=== PATIENT | female | born 1955 | race Caucasian/White ===

== ENCOUNTER 2020-09-03 07:18 | Outpatient (REF) | payer MEDICARE, SELFPAY ==
[2020-09-03 11:13] LABS: MANUAL DIFF FLAG NO
[2020-09-03 11:25] LABS: Basophils Absolute Auto 0.1 X10*3/uL (0.0-0.2); Basophils Percent Auto 0.8 % (0-2); Eosinophils Absolute Auto 0.2 X10*3/uL (0.0-0.4); Eosinophils Percent Auto 2.1 % (0-4); Hematocrit 40.2 % (37-47); Hemoglobin 12.6 g/dl (12.0-16.0); Imm Gran Abs Auto 0.03 X10*3/uL (0.00-0.03); Imm Gran Pct Auto 0.4 % (0.0-0.4); Lymphocytes Absolute Auto 1.9 X10*3/uL (1.2-4.9); Mean Corpuscular HGB Conc 31.3 g/dl (31.0-35.0); Mean Corpuscular Hemoglobin 27.5 pg (27.0-33.0); Mean Corpuscular Volume 87.6 fL (80-98); Mean Platelet Volume 10.2 fL (9.4-12.3); Monocytes Absolute Auto 0.5 X10*3/uL (0.1-1.2); Monocytes Percent Auto 5.7 % (2-11); Neutrophils Absolute Auto 5.8 X10*3/uL (2.0-8.3); Platelet Count 275 X10*3/uL (160-400); Red Blood Count 4.59 X10*6/uL (4.20-5.50); Red Cell Distribution Width 13.9 % (11.0-16.0); White Blood Count 8.4 X10*3/uL (4.8-10.8)
[2020-09-03 11:44] LABS: Alanine Aminotransferase 16 U/L (0-31); Alkaline Phosphatase 70 U/L (39-117); Anion Gap 14 (12-20); Aspartate Amino Transferase 15 U/L (5-31); Bilirubin Total 0.3 mg/dL (0.0-1.0); Blood Urea Nitrogen 30 mg/dL (9-16); Calcium 8.7 mg/dL (8.4-10.2); Carbon Dioxide 25 mmol/L (22-29); Chloride 104 mmol/L (96-108); Cholesterol 194 mg/dL; Estimated Glomerular Filt Rate > 60; Glucose Fasting 92 mg/dL (60-99); HDL Cholesterol 64 mg/dL; LDL Cholesterol Calculated 114 mg/dl; Potassium 4.4 mmol/l (3.3-5.1); Sodium 139 mmol/L (135-145); Total Protein 6.5 g/dL (6.5-8.0); Triglycerides 81 mg/dL
[2020-09-03 12:12] LABS: Thyroid Stimulating Hormone 2.83 uIU/mL (0.32-4.0)
== END 2020-09-03 07:19 | disposition home or self-care (01) ==
LOC: HO.HMGCLDS 07:18
PROVIDERS: PCP Internal Medicine; Visit Provider Internal Medicine
DX: E78.5 Hyperlipidemia, unspecified (principal); J45.909 Unspecified asthma, uncomplicated
CPT/HCPCS: 36415; 80053; 80061; 84443; 85025

== ENCOUNTER 2020-09-11 09:59 | Outpatient (REF) | payer MEDICARE, SELFPAY ==
--- NOTE | 2020-09-11 10:02 | US_ITS ---
EXAMINATION: US SOFT TISSUE OF THE NECK CLINICAL INFORMATION: Generalized enlarged lymph nodes. Status post right thyroidectomy. COMPARISON: Ultrasound soft tissue head/neck thyroid dated 12/13/2018. TECHNIQUE: Linear transducer grayscale and color Doppler examination of the solitary left thyroid and surrounding soft tissue. FINDINGS: LEFT NECK: 1. Level 5B lymph node measuring 2.0 x 0.70 x 1.8 cm. Abnormal appearance with peripheral color flow. 2. Level 5B lymph node measuring 1.4 x 0.57 x 1.5 cm. Normal appearance with peripheral flow 3. Level 2A lymph node measuring 1.3 x 0.61 x 0.82 cm. Oval-shaped with central echogenic medulla and no abnormal vascularity. 4. Level 2A lymph node measures 1.5 x 0.45 x 0.91 cm and has normal ultrasound features. 5. Level 7 lymph node measures 1.1 x 0.23 x 0.42 cm. It has normal ultrasound features. RIGHT NECK: 1. Level 2A lymph node measures 1.2 x 0.54 x 1.2 cm. It has normal ultrasound features. 2. Level 3 lymph node measures 1.1 x 0.47 x 0.82 cm. It has normal ultrasound features. 3. Level 3 lymph node measures 0.91 x 0.30 x 0.74 cm. It has normal ultrasound features. 4. Level 1A lymph node measures 0.90 x 0.62 x 0.74 cm. It has normal ultrasound features. US/US soft tiss head and/or neck IMPRESSION: 1. Two abnormal size lymph nodes seen in the right neck. 2. The rest of the right and left neck lymph nodes have normal lymph node features by ultrasound.
== END 2020-09-11 10:00 | disposition home or self-care (01) ==
LOC: HO.HMGCX 09:59
PROVIDERS: PCP Internal Medicine; Visit Provider Internal Medicine
DX: R59.1 Generalized enlarged lymph nodes (principal)
CPT/HCPCS: 76536

== ENCOUNTER 2020-11-17 07:33 | Outpatient (REF) | payer MEDICARE, SELFPAY ==
[2020-11-17 08:50] LABS: Albumin Level 4.2 g/dL (3.5-5.0); Calcium 9.4 mg/dL (8.4-10.2)
[2020-11-17 08:56] LABS: Alanine Aminotransferase 23 U/L (0-31); Albumin Level 4.2 g/dL (3.5-5.0); Alkaline Phosphatase 95 U/L (39-117); Anion Gap 14 (12-20); Aspartate Amino Transferase 16 U/L (5-31); Bilirubin Total 0.5 mg/dL (0.0-1.0); Blood Urea Nitrogen 19 mg/dL (9-16); Calcium 9.9 mg/dL (8.4-10.2); Carbon Dioxide 32 mmol/L (22-29); Chloride 101 mmol/L (96-108); Estimated Glomerular Filt Rate > 60; Glucose Random 84 mg/dL (60-115); Potassium 4.6 mmol/L (3.3-5.1); Sodium 142 mmol/L (135-145)
[2020-11-17 09:22] LABS: Vitamin D 25-OH Total 48.4 ng/mL (>30)
[2020-11-19 16:12] LABS: PTHI 52 pg/mL (14-64)
[2020-11-23 18:46] LABS: N-Telopeptide 22 (see note); NTXCreaRU 186 mg/dL (20-275)
== END 2020-11-17 07:34 | disposition home or self-care (01) ==
LOC: HO.LAB 07:33
PROVIDERS: PCP Internal Medicine; Visit Provider Internal Medicine
DX: M81.0 Age-related osteoporosis without current pathological fracture (principal); E55.9 Vitamin D deficiency, unspecified; E04.2 Nontoxic multinodular goiter
CPT/HCPCS: 36415; 80053; 82040; 82306; 82310; 82523; 83970

== ENCOUNTER → 2020-11-21 08:50 | Outpatient (BNVA) | payer MEDICARE, SELFPAY | PROVIDERS: PCP Internal Medicine; Visit Provider Internal Medicine | DX: M81.0 Age-related osteoporosis without current pathological fracture (principal); E04.2 Nontoxic multinodular goiter; E55.9 Vitamin D deficiency, unspecified; Z79.899 Other long term (current) drug therapy | CPT/HCPCS: 96402; 99212 ==

== ENCOUNTER 2020-12-11 08:39 | Outpatient (REF) | payer MEDICARE, SELFPAY ==
--- NOTE | ~2020-12-11 | US_ITS ---
EXAMINATION: ULTRASOUND BIOPSY LEFT LYMPH NODE CLINICAL INFORMATION: Left-sided cervical adenopathy. COMPARISON: Ultrasound soft tissue neck 09/12/2020 TECHNIQUE: Following explaining ultrasound-guided left neck lymph node biopsy procedure, benefits and risks, written consent was obtained. Preliminary ultrasound imaging was obtained through the left neck and optimal site was selected and marked on the skin. The marked site was infiltrated with 1% lidocaine. Under sterile ultrasound guidance a 2 pass fine-needle biopsy with a 25-gauge needle was performed. Subsequently a core biopsy x3 was performed with a 20-gauge biopsy gun. Postprocedure needle was withdrawn and complete hemostasis achieved. Sterile bandage applied at the puncture site. Patient tolerated procedure extremely well. On preliminary pathology findings there is adipose tissue visualized. Further cytologic testing is pending. FINDINGS: There is a well-defined left neck superficial soft tissue mass measuring approximately 2.1 cm in length. Ultrasound-guided fine-needle and core biopsy of this left neck mass was performed. US/US biopsy lymph node IMPRESSION: Successful ultrasound-guided left supraclavicular neck fine-needle and core biopsy performed without immediate complications.
== END 2020-12-11 08:40 | disposition home or self-care (01) ==
LOC: HO.US 08:39
PROVIDERS: Visit Provider Internal Medicine
DX: R59.1 Generalized enlarged lymph nodes (principal)
CPT/HCPCS: 38505; 76942; 88172; 88173; 88177; 88304; 88305

== ENCOUNTER 2021-01-03 09:13 | Outpatient (REF) | payer MEDICARE, SELFPAY ==
[2021-01-03 12:03] LABS: Albumin Level 4.1 g/dL (3.5-5.0); Calcium 9.6 mg/dL (8.4-10.2)
[2021-01-03 12:11] LABS: Blood Urea Nitrogen 23 mg/dL (9-16); Estimated Glomerular Filt Rate > 60
[2021-01-04 16:12] LABS: Calcium (PTHI) 9.3 mg/dL (8.6-10.4); PTHI 65 pg/mL (14-64)
== END 2021-01-03 09:14 | disposition home or self-care (01) ==
LOC: HO.HMGCLDS 09:13
PROVIDERS: Internal Medicine; PCP Internal Medicine; Visit Provider Internal Medicine
DX: I49.9 Cardiac arrhythmia, unspecified (principal); R59.1 Generalized enlarged lymph nodes; M81.0 Age-related osteoporosis without current pathological fracture
CPT/HCPCS: 36415; 82040; 82310; 82565; 83970; 84520

== ENCOUNTER 2021-01-10 07:47 | Outpatient (REF) | payer MEDICARE, SELFPAY ==
--- NOTE | ~2021-01-10 | CT_ITS ---
EXAMINATION: CT SOFT TISSUE NECK WITHOUT AND WITH CONTRAST CLINICAL INFORMATION: Generalized enlargement of the lymph nodes. COMPARISON: Soft tissue neck ultrasound 09/11/2020. TECHNIQUE: Before and after the intravenous administration of 60 mL of Omnipaque 350 intravenous contrast helical imaging was performed in the axial plane with generation of coronal and sagittal reformatted images. This CT examination was performed using dose optimization techniques as appropriate, variously including the following: *Automated exposure control *Adjustment of mA and/or kV according to patient size (this includes techniques or standardized protocols for targeted exams where dose is matched to indication/reason for exam; i.e. extremities or head) *Use of iterative reconstruction technique DLP: 288 mGy-cm FINDINGS: The right lobe the thyroid gland is surgically absent. No abnormal soft tissue mass or enhancement at the site of surgery. There are no pathologically enlarged cervical lymph nodes. No mediastinal or axillary adenopathy is visualized within the [id number] of this examination. Spaces are symmetric. Parapharyngeal and retromaxillary fat is preserved. Injection Molding Machine Offbearer spaces are symmetric. The parotid and submandibular glands are normal. The tongue base and epiglottis are normal. Preepiglottic fat is preserved. Glottic and subglottic airways are widely patent. Lung apices are clear. Scattered atheromatous calcification involves the aortic arch apex. Cervical carotid and vertebral arteries are patent. Internal jugular veins fill symmetrically. There is no acute osseous finding. There is degenerative arthrosis at C5-C6 and slight anterolisthesis of C4 on C5 related to facet degenerative changes at this level. Grossly no evidence of canal compromise. Limited visualization of the posterior fossa reveals no abnormal finding. The skull base is intact. No mastoid middle ear effusion. A. Retention cysts are visualized within the maxillary sinuses. CT/CT soft tissue neck wo/w con IMPRESSION: Chronic postoperative changes of a right thyroid lobectomy. No abnormal soft tissue mass or enhancement of the sinus surgery or elsewhere within the [id number] of this examination. No pathologically enlarged cervical lymph nodes.
[2021-01-10] MEDS: iohexoL 350 MG/ML 100 ML INFUS..BTL IV (08:44)
== END 2021-01-10 07:48 | disposition home or self-care (01) ==
LOC: HO.CT 07:47
PROVIDERS: PCP Internal Medicine; Visit Provider Internal Medicine
DX: R59.1 Generalized enlarged lymph nodes (principal)
CPT/HCPCS: 70492; Q9967

== ENCOUNTER 2021-05-17 07:55 | Outpatient (REF) | payer MEDICARE, SELFPAY ==
[2021-05-17 11:27] LABS: Hematocrit 42.1 % (37-47); Hemoglobin 13.3 g/dl (12.0-16.0); Mean Corpuscular HGB Conc 31.6 g/dl (31.0-35.0); Mean Corpuscular Hemoglobin 27.2 pg (27.0-33.0); Mean Corpuscular Volume 86.1 fL (80-98); Platelet Count 324 X10*3/uL (160-400); Red Blood Count 4.89 X10*6/uL (4.20-5.50); Red Cell Distribution Width 14.3 % (11.0-16.0); White Blood Count 9.3 X10*3/uL (4.8-10.8)
[2021-05-17 11:47] LABS: Alanine Aminotransferase 23 U/L (0-31); Albumin Level 4.2 g/dL (3.5-5.0); Alkaline Phosphatase 89 U/L (39-117); Anion Gap 14 (12-20); Aspartate Amino Transferase 18 U/L (5-31); Bilirubin Total 0.6 mg/dL (0.0-1.0); Blood Urea Nitrogen 24 mg/dL (9-16); Calcium 9.3 mg/dL (8.4-10.2); Carbon Dioxide 27 mmol/L (22-29); Chloride 103 mmol/L (96-108); Cholesterol 256 mg/dL; Estimated Glomerular Filt Rate > 60; Glucose Fasting 92 mg/dL (60-99); HDL Cholesterol 79 mg/dL; LDL Cholesterol Calculated 161 mg/dl; Phosphorus 4.2 mg/dL (2.7-4.5); Potassium 4.3 mmol/L (3.3-5.1); Sodium 140 mmol/L (135-145); Total Protein 6.8 g/dL (6.5-8.0); Triglycerides 83 mg/dL
[2021-05-17 11:55] LABS: TSH reflex Free T4 3.41 uIU/mL (0.32-4.0)
[2021-05-17 12:02] LABS: Free T4 (Free Thyroxine) 0.97 ng/dL (0.71-1.85); Thyroid Stimulating Hormone 3.74 uIU/mL (0.32-4.0); Vitamin D 25-OH Total 41.3 ng/mL (>30)
[2021-05-21 22:56] LABS: N-Telopeptide 37 (see note); NTXCreaRU 83 mg/dL (20-275)
[2021-05-26 06:31] LABS: Calcium (PTHI) 9.5 mg/dL (8.6-10.4); PTHI 65 pg/mL (14-64)
== END 2021-05-17 07:56 | disposition home or self-care (01) ==
LOC: HO.HMGCLDS 07:55
PROVIDERS: PCP Internal Medicine; Visit Provider Internal Medicine
DX: E55.9 Vitamin D deficiency, unspecified (principal); M81.0 Age-related osteoporosis without current pathological fracture; E78.5 Hyperlipidemia, unspecified; I49.9 Cardiac arrhythmia, unspecified
CPT/HCPCS: 36415; 80053; 80061; 82306; 82523; 83970; 84100; 84439; 84443; 85027

== ENCOUNTER → 2021-05-22 08:54 | Outpatient (BNVA) | payer MEDICARE, SELFPAY | PROVIDERS: PCP Internal Medicine; Visit Provider Internal Medicine | DX: M81.0 Age-related osteoporosis without current pathological fracture (principal); E55.9 Vitamin D deficiency, unspecified; E04.2 Nontoxic multinodular goiter | CPT/HCPCS: 20552; 96372; 99212 ==

== ENCOUNTER 2021-06-06 08:25 | Outpatient (REF) | payer MEDICARE, SELFPAY ==
[2021-06-06 12:07] LABS: Albumin Level 4.1 g/dL (3.5-5.0); Calcium 9.8 mg/dL (8.4-10.2); Estimated Glomerular Filt Rate > 60
[2021-06-11 08:47] LABS: Calcium (PTHI) 9.6 mg/dL (8.6-10.4); PTHI 42 pg/mL (14-64)
== END 2021-06-06 08:26 | disposition home or self-care (01) ==
LOC: HO.HMGCLDS 08:25
PROVIDERS: PCP Internal Medicine; Visit Provider Internal Medicine
DX: M81.0 Age-related osteoporosis without current pathological fracture (principal)
CPT/HCPCS: 36415; 82040; 82310; 82565; 83970

== ENCOUNTER 2021-07-02 10:22 | Outpatient (REF) | payer MEDICARE, SELFPAY | END 2021-07-02 10:23 | disposition home or self-care (01) | LOC: HO.HMGCLDS 10:22 | PROVIDERS: PCP Internal Medicine; Visit Provider Internal Medicine | DX: Z20.822 Contact with and (suspected) exposure to COVID-19 (principal) | CPT/HCPCS: C9803; U0003; U0005 ==

== ENCOUNTER 2021-07-27 08:57 | Outpatient (REF) | payer MEDICARE, SELFPAY ==
[2021-07-27 11:56] LABS: Alanine Aminotransferase 21 U/L (0-31); Albumin Level 3.9 g/dL (3.5-5.0); Alkaline Phosphatase 72 U/L (39-117); Anion Gap 12 (12-20); Aspartate Amino Transferase 14 U/L (5-31); Bilirubin Total 0.4 mg/dL (0.0-1.0); Blood Urea Nitrogen 15 mg/dL (9-16); Calcium 8.8 mg/dL (8.4-10.2); Carbon Dioxide 28 mmol/L (22-29); Chloride 105 mmol/L (96-108); Cholesterol 226 mg/dL; Estimated Glomerular Filt Rate > 60; Glucose Fasting 78 mg/dL (60-99); HDL Cholesterol 63 mg/dL; LDL Cholesterol Calculated 144 mg/dl; Potassium 4.4 mmol/L (3.3-5.1); Sodium 141 mmol/L (135-145); Total Protein 6.6 g/dL (6.5-8.0); Triglycerides 98 mg/dL
== END 2021-07-27 08:58 | disposition home or self-care (01) ==
LOC: HO.HMGCLDS 08:57
PROVIDERS: PCP Internal Medicine; Visit Provider Internal Medicine
DX: E78.5 Hyperlipidemia, unspecified (principal)
CPT/HCPCS: 36415; 80053; 80061

== ENCOUNTER 2021-12-19 08:16 | Outpatient (REF) | payer MEDICARE, SELFPAY ==
[2021-12-19 11:50] LABS: Alanine Aminotransferase 26 U/L (0-31); Albumin Level 4.1 g/dL (3.5-5.0); Alkaline Phosphatase 87 U/L (39-117); Anion Gap 12 (12-20); Aspartate Amino Transferase 17 U/L (5-31); Bilirubin Total 0.6 mg/dL (0.0-1.0); Blood Urea Nitrogen 20 mg/dL (9-16); Calcium 9.8 mg/dL (8.4-10.2); Carbon Dioxide 31 mmol/L (22-29); Chloride 102 mmol/L (96-108); Cholesterol 249 mg/dL; Estimated Glomerular Filt Rate > 60; Glucose Random 85 mg/dL (60-115); HDL Cholesterol 72 mg/dL; LDL Cholesterol Calculated 161 mg/dl; Phosphorus 4.5 mg/dL (2.7-4.5); Potassium 4.5 mmol/L (3.3-5.1); Sodium 140 mmol/L (135-145); Total Protein 6.8 g/dL (6.5-8.0); Triglycerides 80 mg/dL
[2021-12-19 12:01] LABS: Thyroid Stimulating Hormone 2.92 uIU/mL (0.32-4.0)
[2021-12-19 12:03] LABS: Free T4 (Free Thyroxine) 0.95 ng/dL (0.71-1.85); Vitamin D 25-OH Total 45.5 ng/mL (>30)
[2021-12-20 15:00] LABS: Calcium (PTHI) 9.6 mg/dL (8.6-10.4); PTHI 40 pg/mL (16-77)
== END 2021-12-19 08:17 | disposition home or self-care (01) ==
LOC: HO.HMGCLDS 08:16
PROVIDERS: Absent Provider Internal Medicine; Visit Provider Internal Medicine
DX: E78.5 Hyperlipidemia, unspecified (principal); E55.9 Vitamin D deficiency, unspecified; M81.0 Age-related osteoporosis without current pathological fracture
CPT/HCPCS: 36415; 80053; 80061; 82306; 83970; 84100; 84439; 84443

== ENCOUNTER → 2021-12-26 08:40 | Outpatient (BNVA) | payer MEDICARE, SELFPAY | PROVIDERS: PCP Internal Medicine; Visit Provider Internal Medicine Endocrinology, Diabetes & Metabolism | DX: M81.0 Age-related osteoporosis without current pathological fracture (principal) | CPT/HCPCS: 96372 ==

== ENCOUNTER 2022-01-14 08:02 | Outpatient (REF) | payer MEDICARE, SELFPAY ==
[2022-01-14 12:08] LABS: Calcium 9.6 mg/dL (8.4-10.2); Estimated Glomerular Filt Rate > 60
[2022-01-15 14:11] LABS: Calcium (PTHI) 9.3 mg/dL (8.6-10.4); PTHI 70 pg/mL (16-77)
== END 2022-01-14 08:03 | disposition home or self-care (01) ==
LOC: HO.HMGCLDS 08:02
PROVIDERS: Internal Medicine Endocrinology, Diabetes & Metabolism; Absent Provider Emergency Medicine; PCP Internal Medicine; Visit Provider Internal Medicine
DX: M81.0 Age-related osteoporosis without current pathological fracture (principal)
CPT/HCPCS: 36415; 82310; 82565; 83970

== ENCOUNTER → 2022-01-15 09:02 | Outpatient (BNVA) | payer MEDICARE, SELFPAY | PROVIDERS: PCP Internal Medicine; Visit Provider Internal Medicine | DX: M81.0 Age-related osteoporosis without current pathological fracture (principal); E55.9 Vitamin D deficiency, unspecified; E04.2 Nontoxic multinodular goiter | CPT/HCPCS: Q3014 ==

== ENCOUNTER 2022-05-31 11:36 | Outpatient (REF) | payer MEDICARE, SELFPAY ==
[2022-05-31 11:51] LABS: Appearance Urine Turbid; Color Urine Yellow; Glucose Urine UA Negative (Negative); Leukocyte Esterase Urine Large (3+) (Negative); Nitrite Urine Negative (Negative); PH 5.5 (5.0-9.0); Specific Gravity - Urine 1.015 (1.005-1.025); UMIC TRIGGER UACC YES; Urine Blood Large (3+) (Negative); Urine Ketones Negative (Negative); Urine Protein 30 (1+) mg/dL (Neg-Trace)
[2022-05-31 12:11] LABS: Bacteria Urine 1+ (None Seen); Hyaline Casts Urine 0-2 /LPF (0-2); RBC Urine >20 /HPF (0-2); Squamous Epithelial Cell Urine 0-2 /HPF (0-2); UACC Culture Trigger YES; WBC Urine >50 /HPF (0-5)
== END 2022-05-31 11:37 | disposition home or self-care (01) ==
LOC: HO.LNP 11:36
PROVIDERS: Visit Provider Physician Assistant Medical
DX: R30.0 Dysuria (principal)
CPT/HCPCS: 81001; 87086; 87088; 87186

== ENCOUNTER 2022-06-24 12:09 | Outpatient (REF) | payer MEDICARE, SELFPAY ==
[2022-06-24 14:16] LABS: Alanine Aminotransferase 20 U/L (0-31); Albumin Level 4.1 g/dL (3.5-5.0); Alkaline Phosphatase 85 U/L (39-117); Anion Gap 15 (12-20); Aspartate Amino Transferase 19 U/L (5-31); Bilirubin Total 0.2 mg/dL (0.0-1.0); Blood Urea Nitrogen 22 mg/dL (9-16); Calcium 9.4 mg/dL (8.4-10.2); Carbon Dioxide 26 mmol/L (22-29); Chloride 104 mmol/L (96-108); Estimated Glomerular Filt Rate > 60; Glucose Random 106 mg/dL (60-115); Phosphorus 3.3 mg/dL (2.7-4.5); Potassium 4.2 mmol/L (3.3-5.1); Sodium 141 mmol/L (135-145); Total Protein 6.7 g/dL (6.5-8.0)
[2022-06-24 14:40] LABS: Free T4 (Free Thyroxine) 0.95 ng/dL (0.71-1.85); Thyroid Stimulating Hormone 0.76 uIU/mL (0.32-4.0); Vitamin D 25-OH Total 39.8 ng/mL (>30)
[2022-06-25 11:32] LABS: Calcium (PTHI) 9.2 mg/dL (8.6-10.4); PTHI 62 pg/mL (16-77)
[2022-06-28 22:42] LABS: Alkaline Phosphatase Bone 8.7 mcg/L (5.6-29.0)
== END 2022-06-24 12:10 | disposition home or self-care (01) ==
LOC: HO.HMGCLDS 12:09
PROVIDERS: PCP Internal Medicine; Visit Provider Internal Medicine
DX: M81.0 Age-related osteoporosis without current pathological fracture (principal); E55.9 Vitamin D deficiency, unspecified; E04.2 Nontoxic multinodular goiter
CPT/HCPCS: 36415; 80053; 82306; 83970; 84075; 84100; 84439; 84443

== ENCOUNTER 2022-06-26 07:18 | Outpatient (REF) | payer MEDICARE, SELFPAY | END 2022-06-26 07:19 | disposition home or self-care (01) | LOC: HO.HMGCLDS 07:18 | PROVIDERS: PCP Internal Medicine; Visit Provider Physician Assistant Medical | DX: Z13.89 Encounter for screening for other disorder (principal) ==

== ENCOUNTER 2022-06-30 10:49 | Outpatient (REF) | payer MEDICARE, SELFPAY ==
[2022-07-05 13:32] LABS: N-Telopeptide 37 (see note); NTXCreaRU 55 mg/dL (20-275)
== END 2022-06-30 10:50 | disposition home or self-care (01) ==
LOC: HO.HMGCLNP 10:49
PROVIDERS: Internal Medicine; PCP Internal Medicine; Visit Provider Internal Medicine
DX: M81.0 Age-related osteoporosis without current pathological fracture (principal)
CPT/HCPCS: 82523

== ENCOUNTER → 2022-07-03 11:25 | Outpatient (BNVA) | payer MEDICARE, SELFPAY | PROVIDERS: PCP Internal Medicine; Visit Provider Internal Medicine | DX: M81.0 Age-related osteoporosis without current pathological fracture (principal); E04.2 Nontoxic multinodular goiter; E55.9 Vitamin D deficiency, unspecified | CPT/HCPCS: 96372; 99212 ==

== ENCOUNTER 2022-07-17 11:40 | Outpatient (REF) | payer MEDICARE, SELFPAY ==
[2022-07-21 12:42] LABS: Calcium (PTHI) 9.5 mg/dL (8.6-10.4); PTHI 67 pg/mL (16-77)
== END 2022-07-17 11:41 | disposition home or self-care (01) ==
LOC: HO.HMGCLDS 11:40
PROVIDERS: Visit Provider Internal Medicine
DX: M81.0 Age-related osteoporosis without current pathological fracture (principal)
CPT/HCPCS: 36415; 83970

== ENCOUNTER 2022-09-12 10:57 | Day surgery (SDC) | payer MEDICARE, SELFPAY ==
--- NOTE | 2022-09-11 12:07 | HO.ANESPROP2 ---
Documented by User: Meka Boyd NP 09/11/22 12:10 HPI - Anesthesia Eval Consult details Narrative: 67yo F for Colonoscopy Loop recorder for hx palps PMFSH Active Problems Active Problems: All Active Problems (Updated 07/22/22 @ 08:32 by Armand Lutz MD) Upper respiratory tract infection (Acute) Vitamin B 12 deficiency (Acute) Annual physical exam (Acute) Multinodular thyroid (Acute) Osteoporosis (Acute) Vitamin D deficiency (Acute) Tinea cruris (Acute) Arrhythmia (Acute) Hyperlipidemia (Acute) Lymphadenopathy of head and neck (Chronic) Osteoporosis (Acute) GERD (gastroesophageal reflux disease) (Acute) Neck pain (Acute) Normal colonoscopy (Acute) Past Medical History Medical History (Updated 09/12/22 @ 11:38 by Lashanda Ortega, RN) Annual physical exam Arrhythmia Asthma GERD (gastroesophageal reflux disease) History of mammogram Hyperlipidemia Lymphadenopathy of head and neck Multinodular thyroid Neck pain Normal colonoscopy Osteoporosis Vitamin B 12 deficiency Vitamin D deficiency Family History Family History Father CAD (coronary artery disease) CVD (cardiovascular disease) Mother No problems noted. Brother Cancer Sister Liver cancer CVD (cardiovascular disease) Other Mental health disorder Surgical History Surgical History (Updated 09/12/22 @ 11:45 by Lashanda Ortega, RICHARD) Carpal tunnel syndrome H/O arthroscopy of right knee H/O colonoscopy History of breast biopsy History of esophagogastroduodenoscopy (EGD) History of hysterectomy History of lumpectomy of both breasts History of rotator cuff surgery History of thyroidectomy Hx of cholecystectomy S/P foot surgery, right Social History Social History Housing: House Alcohol intake: current Alcohol intake frequency: holidays/special occasions only Patient Tobacco Use Status: Former Tobacco user Quit Date: 14 YRS AGO Tobacco use type: Cigarette Cigarettes Per Day: 5 Years Smoked: 35 e-Cigarette/Vaping Use: Never Used Use of substances other than those prescribed or required for medical reasons: No Are you DNR?: No Advance Directives: No Advance Directives Information Provided: Yes Current occupational status: retired Cognitive needs: No Hearing needs: No Vision needs: No Meds Allergies Allergy/AdvReac Type Severity Reaction Status Date / Time oxycodone [From Percocet] Allergy Mild NAUSEA,HIVES,THROWING Verified 09/12/22 11:43 UP/ codeine [Codeine] AdvReac Mild Constipatio Verified 09/12/22 12:15 n dairy protein Allergy Severe Diarrhea Uncoded 09/12/22 12:16 dairy,eggs, wheat,nuts,mold Allergy Severe Diarrhea Uncoded 09/12/22 12:16 Home Medications Medication Instructions Recorded Confirmed Last Taken Type azelastine 137 mcg (0.1 %) nasal 137 mcg intranasal DAILY 06/26/20 07/03/22 Unknown History spray aerosol flecainide 50 mg tablet 50 mg PO BID 06/26/20 07/03/22 09/12/22 07:45 History metoprolol succinate 25 mg 12.5 mg PO DAILY 06/26/20 07/03/22 Unknown History tablet,extended release 24 hr montelukast 10 mg tablet 10 mg PO DAILY 06/26/20 07/03/22 Unknown History calcium carbonate 600 mg-vitamin 1 tab PO DAILY 01/03/21 07/03/22 Unknown History D3 10 mcg (400 unit) tablet (Calcium with Vitamin D) flaxseed oil 1,000 mg capsule 1,000 mg PO DAILY 01/03/21 07/03/22 Unknown History ketoprofen 25 mg capsule mg PO 09/11/22 09/11/22 Unknown History albuterol sulfate 90 mcg/actuation 2 inh inhalation QID PRN shortness 09/12/22 Unknown History aerosol inhaler (ProAir HFA) of breath or wheezing Exam Exam Date and Time: September 11, 2022 1207 Pertinent Lab Results Pertinent Lab Results: Laboratory Tests 05/17/21 06/24/22 08:00 12:14 WBC 9.3 Hgb 13.3 Hct 42.1 Plt Count 324 D Sodium 141 Potassium 4.2 Chloride 104 Carbon Dioxide 26 BUN 22 H Creatinine 0.79 Narrative Narrative: Loop recorder 11/2021 No jonh No tachy/AF episodes No pt activated events recorded. Battery status ok. Assessment and Plan Assessment Anesthesia Assessment: Chart Reviewed Documented by User: Samantha Anna MD 09/12/22 12:51 [facility] Past Medical History Medical History (Updated 09/12/22 @ 11:38 by Lashanda Ortega, RICHARD) Annual physical exam Arrhythmia Asthma GERD (gastroesophageal reflux disease) History of mammogram Hyperlipidemia Lymphadenopathy of head and neck Multinodular thyroid Neck pain Normal colonoscopy Osteoporosis Vitamin B 12 deficiency Vitamin D deficiency Family History Family History Father CAD (coronary artery disease) CVD (cardiovascular disease) Mother No problems noted. Brother Cancer Sister Liver cancer CVD (cardiovascular disease) Other Mental health disorder Family history of problems with anesthesia: No Surgical History Surgical History (Updated 09/12/22 @ 11:45 by Lahsanda Ortega RN) Carpal tunnel syndrome H/O arthroscopy of right knee H/O colonoscopy History of breast biopsy History of esophagogastroduodenoscopy (EGD) History of hysterectomy History of lumpectomy of both breasts History of rotator cuff surgery History of thyroidectomy Hx of cholecystectomy S/P foot surgery, right History of Problems with Anesthesia: No Social History Social History Housing: House Alcohol intake: current Alcohol intake frequency: holidays/special occasions only Patient Tobacco Use Status: Former Tobacco user Quit Date: 14 YRS AGO Tobacco use type: Cigarette Cigarettes Per Day: 5 Years Smoked: 35 e-Cigarette/Vaping Use: Never Used Use of substances other than those prescribed or required for medical reasons: No Are you DNR?: No Advance Directives: No Advance Directives Information Provided: Yes Current occupational status: retired Cognitive needs: No Hearing needs: No Vision needs: No Meds Allergies Allergy/AdvReac Type Severity Reaction Status Date / Time oxycodone [From Percocet] Allergy Mild NAUSEA,HIVES,THROWING Verified 09/12/22 11:43 UP/ codeine [Codeine] AdvReac Mild Constipatio Verified 09/12/22 12:15 n dairy protein Allergy Severe Diarrhea Uncoded 09/12/22 12:16 dairy,eggs, wheat,nuts,mold Allergy Severe Diarrhea Uncoded 12/30/22 12:16 Home Medications Medication Instructions Recorded Confirmed Last Taken Type azelastine 137 mcg (0.1 %) nasal 137 mcg intranasal DAILY 06/26/20 07/03/22 Unknown History spray aerosol flecainide 50 mg tablet 50 mg PO BID 06/26/20 07/03/22 09/12/22 07:45 History metoprolol succinate 25 mg 12.5 mg PO DAILY 06/26/20 07/03/22 Unknown History tablet,extended release 24 hr montelukast 10 mg tablet 10 mg PO DAILY 06/26/20 07/03/22 Unknown History calcium carbonate 600 mg-vitamin 1 tab PO DAILY 01/03/21 07/03/22 Unknown History D3 10 mcg (400 unit) tablet (Calcium with Vitamin D) flaxseed oil 1,000 mg capsule 1,000 mg PO DAILY 01/03/21 07/03/22 Unknown History ketoprofen 25 mg capsule mg PO 09/11/22 09/11/22 Unknown History albuterol sulfate 90 mcg/actuation 2 inh inhalation QID PRN shortness 09/12/22 Unknown History aerosol inhaler (ProAir HFA) of breath or wheezing Exam Airway Mallampati Class: I TM Dist: >3cm Neck ROM: Full Heart: rr Lungs: cta Assessment and Plan Final Anesthetic Review Family History of Problems with Anesthesia: No History of Problems with Anesthesia: No NPO: Yes ASA Class: II Final Preanesthetic Review: No Changes in Pt Med Stat, Meds/Allgs Chart Reviewed, Consent Obtained/Reviewed and Anes Risks/Benef Reviewed Patient Risk: Low Procedure Risk: Low Anesthetic Plan Anesthetic Plan: MAC: Disposition: Standard PACU
[2022-09-12 11:45] VITALS: BMI 31.1
[2022-09-12 11:55] VITALS: BP 112/57; PULSE 77; RESP 15; TEMP 36.8; O2SAT 99
[2022-09-12] MEDS: Lactated Ringers 1,000 ML 100 ML IVCONT (12:09)
[2022-09-12 14:10] VITALS: BP 118/57; PULSE 83; RESP 16; TEMP 36.3; O2SAT 98
--- NOTE | 2022-09-12 14:11 | P.BOP_ITS ---
Brief Operative Note Date of Service: 09/12/22 Pre-op diagnosis: Screening Post-op diagnosis: other (Diverticulosis) Procedure: Colonoscopy to the cecum and TI Surgeon: Javier Padilla Anesthesia: MAC Was an Slip Bridge Operator used for this Procedure?: No Estimated blood loss (mL): 0 Pathology: none sent Condition: stable Disposition: PACU
[2022-09-12 14:25] VITALS: BP 126/63; PULSE 77; RESP 16; TEMP 36.3; O2SAT 98
--- NOTE | 2022-09-12 20:18 | OP_ITS ---
SURGEON: Javier Padilla MD INDICATIONS: The patient presents for evaluation of colorectal cancer screening. Full consent has been obtained from her for this, including risks of bleeding and perforation. PREOPERATIVE DIAGNOSIS: Colorectal cancer screening. POSTOPERATIVE DIAGNOSIS: PROCEDURE PERFORMED: Colonoscopy to the cecum and terminal ileum. ESTIMATED BLOOD LOSS: COMPLICATIONS: ANESTHESIA: Monitored anesthesia care. ASSISTANTS: SPECIMENS: POSTOPERATIVE DIAGNOSES: Colorectal cancer screening, diverticulosis, and internal hemorrhoids. DESCRIPTION OF PROCEDURE: The patient was placed in the left lateral decubitus position. The digital rectal exam revealed no abnormalities. The Olympus video pediatric colonoscope was entered into the rectum and advanced to the cecum. Once in the cecum, I did identify normal-appearing cecal pouch with appendiceal orifice and a normal-appearing ileocecal valve. The terminal ileum was cannulated and appeared normal. The scope was withdrawn back in the colon. The entire cecum and ileocecal valve appeared normal. Scope was then slowly withdrawn assessing all mucosal surfaces carefully. Preparation was excellent. I did not visualize any sign of polyps, colitis, nor angiodysplasia. There was a mild amount of sigmoid diverticulosis. In the rectum, scope was retroflexed visualizing some small internal hemorrhoids, but no other pathology. The rectal mucosa appeared normal. The scope was straightened and withdrawn from the patient. She tolerated the procedure well and was returned to the recovery area in stable condition. IMPRESSION: 1. Diverticulosis. 2. Internal hemorrhoids. PLAN: Given today's negative colonoscopy, I would recommend a followup colonoscopy in 10 years for further screening. She will otherwise see me on a p.r.n. basis. MD MEG Toussaint/MODL / [id number]
== END 2022-09-12 14:57 | disposition home or self-care (01) ==
PROVIDERS: PCP Internal Medicine; Visit Provider Internal Medicine
PROC: 0DJD8ZZ Inspection of Lower Intestinal Tract, Via Natural or Artificial Opening Endoscopic (ICD-10-PCS; CPT 45378; principal; 2022-09-12 12:20)
DX: Z12.11 Encounter for screening for malignant neoplasm of colon (principal); K57.30 Diverticulosis of large intestine without perforation or abscess without bleeding; K64.8 Other hemorrhoids; K21.9 Gastro-esophageal reflux disease without esophagitis; I48.91 Unspecified atrial fibrillation; J45.909 Unspecified asthma, uncomplicated; E78.5 Hyperlipidemia, unspecified; Z79.51 Long term (current) use of inhaled steroids; Z79.899 Other long term (current) drug therapy; Z88.8 Allergy status to other drugs, medicaments and biological substances; Z87.891 Personal history of nicotine dependence
CPT/HCPCS: G0121

== ENCOUNTER 2022-12-30 07:27 | Outpatient (REF) | payer MEDICARE, SELFPAY ==
[2022-12-30 11:35] LABS: Estimated Average Glucose 103 mg/dL; Hemoglobin A1c % 5.2 %
[2022-12-30 12:33] LABS: Alanine Aminotransferase 20 U/L (0-31); Albumin Level 4.1 g/dL (3.5-5.0); Alkaline Phosphatase 78 U/L (39-117); Anion Gap 11 (12-20); Aspartate Amino Transferase 13 U/L (5-31); Bilirubin Total 0.6 mg/dL (0.0-1.0); Blood Urea Nitrogen 20 mg/dL (9-16); Calcium 9.3 mg/dL (8.4-10.2); Carbon Dioxide 29 mmol/L (22-29); Chloride 106 mmol/L (96-108); Cholesterol 226 mg/dL; Estimated Glomerular Filt Rate > 60; Glucose Fasting 94 mg/dL (60-99); Glucose Random 94 mg/dL (60-115); HDL Cholesterol 71 mg/dL; LDL Cholesterol Calculated 141 mg/dl; Phosphorus 3.3 mg/dL (2.7-4.5); Potassium 4.2 mmol/L (3.3-5.1); Sodium 142 mmol/L (135-145); Total Protein 6.6 g/dL (6.5-8.0); Triglycerides 70 mg/dL
[2022-12-30 12:39] LABS: Free T4 (Free Thyroxine) 0.97 ng/dL (0.71-1.85); Vitamin D 25-OH Total 53.1 ng/mL (>30)
[2022-12-30 12:50] LABS: Folate 10.8 ng/mL (> or = 4.0); Thyroid Stimulating Hormone 2.59 uIU/mL (0.32-4.0); Vitamin B12 1412 pg/mL (200-900)
[2022-12-31 13:24] LABS: Calcium (PTHI) 9.5 mg/dL (8.6-10.4); PTHI 77 pg/mL (16-77)
[2023-01-08 13:09] LABS: N-Telopeptide 49 (see note); NTXCreaRU 73 mg/dL (20-275)
== END 2022-12-30 07:28 | disposition home or self-care (01) ==
LOC: HO.HMGCLDS 07:27
PROVIDERS: Absent Provider Internal Medicine; PCP Internal Medicine; Visit Provider Internal Medicine
DX: Z00.00 Encounter for general adult medical examination without abnormal findings (principal); E53.8 Deficiency of other specified B group vitamins; E78.5 Hyperlipidemia, unspecified; I49.9 Cardiac arrhythmia, unspecified; M81.0 Age-related osteoporosis without current pathological fracture; E04.2 Nontoxic multinodular goiter; E55.9 Vitamin D deficiency, unspecified
CPT/HCPCS: 36415; 80053; 80061; 82306; 82523; 82607; 82746; 83036; 83970; 84100; 84439; 84443

== ENCOUNTER → 2023-01-05 08:32 | Outpatient (BNVA) | payer MEDICARE, SELFPAY | PROVIDERS: PCP Internal Medicine; Visit Provider Internal Medicine | DX: M81.0 Age-related osteoporosis without current pathological fracture (principal); E04.2 Nontoxic multinodular goiter; E55.9 Vitamin D deficiency, unspecified | CPT/HCPCS: 96372; 99212 ==

== ENCOUNTER 2023-01-20 10:30 | Outpatient (REF) | payer MEDICARE, SELFPAY ==
[2023-01-20 12:55] LABS: Albumin Level 4.1 g/dL (3.5-5.0); Calcium 9.2 mg/dL (8.4-10.2)
[2023-01-20 13:16] LABS: Folate 9.9 ng/mL (> or = 4.0); Vitamin B12 670 pg/mL (200-900)
[2023-01-22 17:03] LABS: Calcium (PTHI) 9.3 mg/dL (8.6-10.4); PTHI 64 pg/mL (16-77)
== END 2023-01-20 10:31 | disposition home or self-care (01) ==
LOC: HO.HMGCLDS 10:30
PROVIDERS: Absent Provider Internal Medicine; PCP Internal Medicine; Visit Provider Internal Medicine
DX: E53.8 Deficiency of other specified B group vitamins (principal); M81.0 Age-related osteoporosis without current pathological fracture
CPT/HCPCS: 36415; 82040; 82310; 82607; 82746; 83970

== ENCOUNTER 2023-01-24 15:17 | Outpatient (REF) | payer MEDICARE, SELFPAY ==
[2023-01-24 15:26] LABS: Appearance Urine Clear; Color Urine Yellow; Glucose Urine UA Negative (Negative); Leukocyte Esterase Urine Small (1+) (Negative); Nitrite Urine Negative (Negative); PH 5.5 (5.0-9.0); UMIC TRIGGER UACC YES; Urine Blood Large (3+) (Negative); Urine Ketones Negative (Negative); Urine Protein Negative (Neg-Trace)
[2023-01-24 15:37] LABS: Bacteria Urine None Seen (None Seen); Hyaline Casts Urine 0-2 /LPF (0-2); RBC Urine 0-2 /HPF (0-2); Squamous Epithelial Cell Urine 0-2 /HPF (0-2); UACC Culture Trigger YES; WBC Urine 0-5 /HPF (0-5)
== END 2023-01-24 15:18 | disposition home or self-care (01) ==
LOC: HO.LNP 15:17
PROVIDERS: Visit Provider Physician Assistant Medical
DX: R30.0 Dysuria (principal)
CPT/HCPCS: 81001; 87086

== ENCOUNTER 2023-01-31 10:07 | Emergency (ER) | payer MEDICARE, SELFPAY ==
--- NOTE | ~2023-01-31 | CT_ITS ---
EXAMINATION: CT ABDOMEN AND PELVIS WITHOUT CONTRAST CLINICAL INFORMATION: Back pain. Abdominal pain. Hematuria. Evaluate for renal colic. COMPARISON: Abdominal ultrasound dated 04/08/2018. TECHNIQUE: Multidetector volumetric imaging was performed from the superior aspect of the liver through the pubic symphysis. Sagittal and coronal reformatted images were obtained on the technologist's workstation. This CT examination was performed using dose optimization techniques as appropriate, variously including the following: *Automated exposure control *Adjustment of mA and/or kV according to patient size (this includes techniques or standardized protocols for targeted exams where dose is matched to indication/reason for exam; i.e. extremities or head) *Use of iterative reconstruction technique DLP: 680 mGy-cm FINDINGS: LUNG BASES: The visualized lung bases are unremarkable. LIVER, GALLBLADDER, AND BILIARY TREE: The liver is normal in size, shape, and attenuation. No focal hepatic lesion or biliary ductal dilatation is present. Status post cholecystectomy. PANCREAS: Unremarkable. SPLEEN: Unremarkable. ADRENAL GLANDS: Unremarkable. KIDNEYS AND URETERS: The kidneys are normal in size, shape, and attenuation. No hydronephrosis, hydroureter, or calculi seen. Simple midpole left renal cyst, unchanged. Findings are not clinically significant and no dedicated follow-up imaging is recommended. No perinephric stranding. BLADDER: Unremarkable. GASTROINTESTINAL TRACT: Tiny, sliding hiatal hernia. Sigmoid diverticulosis without evidence of acute diverticulitis. No bowel wall thickening or inflammatory change. No small or large bowel obstruction. Unremarkable appendix. PERITONEAL CAVITY: No intra-abdominal free air or free fluid. No intra-abdominal mass or organized fluid collection/abscess formation. ABDOMINAL WALL: No significant hernia is appreciated. LYMPH NODES: No significant lymphadenopathy. VASCULAR: Unremarkable. PELVIC VISCERA: Status post hysterectomy. OSSEOUS STRUCTURES: Mild grade 1 anterolisthesis of L4 on L5. Mild multilevel degenerative disc disease. Multilevel bilateral facet arthropathy. CT/CT abdomen pelvis wo IV con IMPRESSION: 1. No hydronephrosis or nephrolithiasis. Unremarkable urinary bladder. 2. Diverticulosis without evidence of acute diverticulitis. No small or large bowel obstruction. Unremarkable appendix. 3. No intra-abdominal mass, lymphadenopathy, or ascites. Fleischner guidelines were followed.
[2023-01-31 10:33] VITALS: BP 157/54; PULSE 67; RESP 18; TEMP 36.8; O2SAT 98; BMI 32.5
[2023-01-31 10:52] VITALS: PULSE 82; RESP 18; TEMP 36.6; O2SAT 97
--- NOTE | 2023-01-31 10:57 | PC.NURSE ---
Alert and oriented, from home stating x1 week hematuria with bladder and back pain. States went to urgent care a week ago and was started on abt x 5 days. Received call from urgent care last thursday who stated no uti and to stop taking abt. Patient states she took two doses thu, thursday, and one dose thursday. States did not notice blood in urine until again this morning when she saw blood after voiding with small clots. complains of pain that comes and goes in back and bladder. complaining of pain with urination x 1 week. vss.
--- NOTE | 2023-01-31 11:04 | ED_ITS ---
HPI - General Adult General Chief complaint: General Medical Stated complaint: vaginal bleeding Time Seen by Provider: 01/31/23 10:48 Source: patient Mode of arrival: ambulatory Limitations: no limitations History of Present Illness HPI narrative: 67-year-old female with a history of high cholesterol, GERD, asthma presents the ER with 1 week of hematuria, dysuria, suprapubic discomfort, low back pain. Patient reports she went to urgent care and had a urine which was negative for infection. She did take antibiotics for approximately 48 hours but she stopped this when she that of the culture was negative. She reports continued symptoms. She denies any fevers, chills, vomiting. She has had some nausea. No vaginal bleeding Related Data Home Medications Medication Instructions Recorded Confirmed azelastine 137 mcg (0.1 %) nasal 137 mcg intranasal DAILY 06/26/20 01/20/23 spray aerosol flecainide 50 mg tablet 50 mg PO BID 06/26/20 01/20/23 metoprolol succinate 25 mg 12.5 mg PO DAILY 06/26/20 01/20/23 tablet,extended release 24 hr montelukast 10 mg tablet 10 mg PO DAILY 06/26/20 01/20/23 calcium carbonate 600 mg-vitamin 1 tab PO DAILY 01/03/21 01/20/23 D3 10 mcg (400 unit) tablet (Calcium with Vitamin D) flaxseed oil 1,000 mg capsule 1,000 mg PO DAILY 01/03/21 01/20/23 denosumab 60 mg/mL subcutaneous 60 mg subcut [id number] 01/20/23 01/20/23 syringe gabapentin 100 mg capsule 200 mg PO BEDTIME PRN 01/20/23 01/20/23 Previous Rx's Medication Instructions Recorded cyanocobalamin (vitamin B-12) 1,000 mcg IM .twice a month #6 mL 01/06/22 1,000 mcg/mL injection solution celecoxib 200 mg capsule 200 mg PO DAILY #90 caps 06/02/22 lansoprazole 30 mg capsule,delayed 30 mg PO DAILY #90 caps 06/02/22 release syringe with needle 3 mL 22 gauge #6 ea 08/29/22 x 1 (Easy Touch) albuterol sulfate 90 mcg/actuation 2 inh inhalation QID PRN shortness 01/20/23 aerosol inhaler (ProAir HFA) of breath or wheezing #33.5 grams nitrofurantoin 100 mg PO Q12H 5 days #10 caps 01/24/23 monohydrate/macrocrystals 100 mg capsule (Macrobid) nystatin 100,000 unit/gram topical 1 appl topical TID #30 grams 01/24/23 powder cefuroxime axetil 500 mg tablet 500 mg PO BID #14 tabs 01/31/23 phenazopyridine 200 mg tablet 200 mg PO TID PRN pain 6 doses #14 01/31/23 (Pyridium) tabs Allergies Allergy/AdvReac Type Severity Reaction Status Date / Time oxycodone [From Percocet] Allergy Mild NAUSEA,HIVES,THROWING Unverified 01/31/23 10:33 UP/ codeine [Codeine] AdvReac Mild Constipatio Verified 01/31/23 10:33 n dairy protein Allergy Severe Diarrhea Uncoded 01/24/23 10:04 dairy,eggs, wheat,nuts,mold Allergy Severe Diarrhea Uncoded 01/24/23 10:04 Review of Systems Review of Systems: Yes all other systems are reviewed and are negative Constitutional: Constitutional: Reports no additional constitutional complaints, Denies body ache(s), Denies chills, Denies fever(s), Denies headache(s) and Denies weakness Eyes: Eyes: Reports no additional eye complaints and Denies change in vision ENT: Reports system reviewed and no additional complaints, except as documented, Denies dizziness, Denies headache(s), Denies nasal congestion, Denies nasal discharge and Denies neck pain Cardiovascular: Cardiovascular: Reports no additional cardiovascular complaints, Denies chest pain, Denies leg edema and Denies dyspnea Respiratory: Respiratory: Reports no additional respiratory complaints, Denies cough and Denies dyspnea Gastrointestinal: Gastrointestinal: Reports no additional gastrointestinal complaints, Reports abdominal pain, Denies diarrhea, Reports nausea and Denies vomiting Genitourinary: Genitourinary: Reports no additional female genitourinary complaints, Reports hematuria, Reports dysuria, Denies flank pain, Denies urinary incontinence, Denies urinary hesitancy and Denies urinary urgency Musculoskeletal: Musculoskeletal: Reports no additional musculoskeletal complaints, Reports back pain, Denies arthralgias, Denies joint swelling, Denies neck pain, Denies numbness and Denies tingling Integumentary/Breasts: Skin/Breast: Reports system reviewed and no additional complaints, except as docu and Denies rash Neurologic: Reports system reviewed and no additional complaints, except as documented, Denies dizziness, Denies headache(s), Denies numbness, Denies tingling and Denies weakness PMFSH Past Medical History Attestation statement: The following information was validated with the patient. Source: old records reviewed and nursing notes reviewed Medical History Annual physical exam Arrhythmia Asthma GERD (gastroesophageal reflux disease) History of mammogram Hyperlipidemia Lymphadenopathy of head and neck Multinodular thyroid Neck pain Normal colonoscopy Osteoporosis Vitamin B 12 deficiency Vitamin D deficiency Surgical History Carpal tunnel syndrome H/O arthroscopy of right knee H/O colonoscopy History of breast biopsy History of esophagogastroduodenoscopy (EGD) History of hysterectomy History of lumpectomy of both breasts History of rotator cuff surgery History of thyroidectomy Hx of cholecystectomy S/P foot surgery, right Family History Family History Father CAD (coronary artery disease) CVD (cardiovascular disease) Mother No problems noted. Brother Cancer Sister Liver cancer CVD (cardiovascular disease) Other Mental health disorder Social History Social History Housing: House Alcohol intake: current Alcohol intake frequency: holidays/special occasions only Patient Tobacco Use Status: Former Tobacco user Quit Date: 14 YRS AGO Tobacco use type: Cigarette Cigarettes Per Day: 5 Years Smoked: 35 Smoked in Last 30 Days: No e-Cigarette/Vaping Use: Never Used Advance Directives: No Current occupational status: retired Cognitive needs: No Hearing needs: No Vision needs: Yes Physical Exam ED Vital Signs: Vital Signs - 24 hr 01/31/23 10:33 01/31/23 10:52 01/31/23 13:10 Temperature 98.2 F 98 F Pulse Rate 67 82 92 Respiratory Rate 18 18 18 Blood Pressure 157/54 H 138/64 Pulse Oximetry 98 97 99 Oxygen Delivery Method Room Air Room Air Room Air BMI result Body Mass Index 32.5 Const General: cooperative, healthy appearing, comfortable and no acute distress Orientation/consciousness: patient oriented x3 Limitations: no limitations HENMT Head: Yes normal to inspection Ears: hearing grossly normal bilaterally Eyes General: appearance normal, both eyes and all related structures Pupils: Equal, round and reactive pupils present Neck Neck: Yes normal visual inspection, Yes full ROM, Yes no lymphadenopathy and Yes no meningeal signs Chest Chest palpation & inspection: normal inspection of the chest Resp Effort & Inspection: normal respiratory effort Auscultation: clear to auscultation bilaterally Cardio Rate: regular rate Rhythm: regular rhythm Peripheral pulses: Peripheral pulses 2+ throughout GI Inspection: Yes normal to inspection Palpation (GI): Soft to palpation and nontender General: Yes no CVA tenderness Back/Spine/Pelvis Back: no CVA tenderness Skin General skin exam: no rashes or lesions noted Neuro General: patient oriented x3, moves all extremities and no meningeal signs Cranial nerves: Yes Equal, round and reactive pupils present Gait exam (Neuro): Normal gait present Motor exam (neuro): 5/5 motor strength present throughout Sensory Exam: Normal double simultaneous stimulation for sensation Extrem General: Yes normal to inspection, Yes no pedal edema and Yes no calf tenderness Course Course Course Narrative: Labs are unremarkable. UA shows hematuria. CT shows no acute finding. Patient clinically has cystitis and is symptomatic with dysuria, frequency of urination and suprapubic discomfort. Therefore I will treat her with a course of antibi otics and Pyridium p.r.n.. We did discuss that if her hematuria continues it would be beneficial for her to follow up outpatient with Urology. She may need additional testing including a cystoscopy. Patient is agreeable with this plan of care. Reviewed worrisome signs and symptoms of when to return to the emergency room. Comfortable plan for discharge home. Medical Decision Making Medical Decision Making [facility] Narrative: This is a 67-year-old female who presents to the ER with complaints of h ematuria, dysuria, urinary frequency, suprapubic discomfort and lower back pain for the last 1 week. Patient reports seen at the outpatient urgent care and had negative urine culture. She did take antibiotics 48 hours but then discontinued these. On exam patient in no focal CVA tenderness. She does have some mild tenderness in suprapubic area. Will check labs, UA, CT Differential Diagnosis Differential Diagnoses: The differential diagnosis associated with the presentation includes Renal colic, pyelonephritis, UTI Lab Data [facility] Lab Attestation statement: I reviewed the patient's lab results. 01/31/23 11:33 01/31/23 11:33 Labs: Lab Results 01/31/23 01/31/23 01/31/23 Range/Units 11:16 11:33 13:28 WBC 9.5 (4.8-10.8) X10*3/uL RBC 4.84 (4.20-5.50) X10*6/uL Hgb 13.7 (12.0-16.0) g/dl Hct 41.3 (37.0-47.0) % MCV 85.3 (80.0-98.0) fL MCH 28.3 (27.0-33.0) pg MCHC 33.2 (31.0-35.0) g/dl RDW 13.4 (11.0-16.0) % Plt Count 238 (160-400) X10*3/uL MPV 9.9 (9.4-12.3) fL Immature Gran % (Auto) 0.5 H (0.0-0.4) % Neut % (Auto) 72.1 (45-73) % Lymph % (Auto) 17.8 L (20-40) % [place] % (Auto) 5.2 (2-11) % Eos % (Auto) 3.5 (0-4) % Baso % (Auto) 0.9 (0-2) % Lymph # (Auto) 1.7 (1.2-4.9) X10*3/uL [place] # (Auto) 0.5 (0.1-1.2) X10*3/uL Eos # (Auto) 0.3 (0.0-0.4) X10*3/uL Baso # (Auto) 0.1 (0.0-0.2) X10*3/uL Abs Immat Gran (auto) 0.05 H (0.00-0.03) X10*3/uL Absolute Neuts (auto) 6.9 (2.0-8.3) x10*3/uL Absolute Nucleated RBC 0.000 (0.0-0.012) X10*3/uL Nucleated RBC % (auto) 0.0 (0.0-0.2) /100WBC Sodium 142 (135-145) mmol/L Potassium 4.4 (3.3-5.1) mmol/L Chloride 107 (96-108) mmol/L Carbon Dioxide 29 (22-29) mmol/L Anion Gap 10 L (12-20) BUN 19 H (9-16) mg/dL Creatinine 0.74 (0.5-1.4) mg/dL Estim Creat Clear Calc 69.7 Estimated GFR > 60 Random Glucose 89 (60-115) mg/dL Calcium 9.4 (8.4-10.2) mg/dL Total Bilirubin 0.5 (0.0-1.0) mg/dL Direct Bilirubin 0.1 (0.0-0.5) mg/dL AST 16 (5-31) U/L ALT 22 (0-31) U/L Alkaline Phosphatase 76 (39-117) U/L Total Protein 6.8 (6.5-8.0) g/dL Albumin 4.1 (3.5-5.0) g/dL Urine Color Red A Urine Appearance Clear Urine pH 6.0 (5.0-9.0) Ur Specific [place] <= 1.005 (1.005-1.025) Urine Protein Trace (Neg-Trace) mg/dL Urine Glucose (UA) Negative (Negative) mg/dL Urine Ketones Negative (Negative) mg/dL Urine Blood Large (3+) H (Negative) Urine Nitrite Negative (Negative) Ur Leukocyte Esterase Negative (Negative) Urine RBC 0-2 (0-2) /HPF Urine WBC 0-5 (0-5) /HPF Ur Squamous Epith Cells 0-2 (0-2) /HPF Urine Bacteria None Seen (None Seen) Hyaline Casts 0-2 (0-2) /LPF Independent Interpretation I performed an independent interpretation of an: CT Scan Interpretation: I independently reviewed the CT scan agree with radiologist's report Radiology Impression Discussion of test interpretation with radiology: I have reviewed the radiologist's reading. Radiologist Impression: FINDINGS: LUNG BASES: The visualized lung bases are unremarkable.? LIVER, GALLBLADDER, AND BILIARY TREE: The liver is normal in size, shape, and attenuation. No focal hepatic lesion or biliary ductal dilatation is present. Status post cholecystectomy.? PANCREAS: Unremarkable.? SPLEEN: Unremarkable.? ADRENAL GLANDS: Unremarkable.? KIDNEYS AND URETERS: The kidneys are normal in size, shape, and attenuation. No hydronephrosis, hydroureter, or calculi seen. Simple midpole left renal cyst, unchanged. Findings are not clinically significant and no dedicated follow-up imaging is recommended. No perinephric stranding. ? BLADDER: Unremarkable.? GASTROINTESTINAL TRACT: Tiny, sliding hiatal hernia. Sigmoid diverticulosis without evidence of acute diverticulitis. No bowel wall thickening or inflammatory change. No small or large bowel obstruction. Unremarkable appendix. PERITONEAL CAVITY: No intra-abdominal free air or free fluid. No intra-abdominal mass or organized fluid collection/abscess formation.? ABDOMINAL WALL: No significant hernia is appreciated.? LYMPH NODES: No significant lymphadenopathy. VASCULAR: Unremarkable. PELVIC VISCERA: Status post hysterectomy.? OSSEOUS STRUCTURES: Mild grade 1 anterolisthesis of L4 on L5. Mild multilevel degenerative disc disease. Multilevel bilateral facet arthropathy.? CT/CT abdomen pelvis wo IV con IMPRESSION: 1.? No hydronephrosis or nephrolithiasis. Unremarkable urinary bladder. ? 2.? Diverticulosis without evidence of acute diverticulitis. No small or large bowel obstruction. Unremarkable appendix. ? 3.? No intra-abdominal mass, lymphadenopathy, or ascites. ? Fleischner guidelines were followed. Discharge Plan Discharge Clinical Impression: Cystitis Patient Disposition: Home, Self-Care Instructions: Interstitial Cystitis (ED) Additional Instructions: Increase fluids, rest Take the medication as prescribed. If you continue to have blood in urine then I recommend you follow-up with a urologist for further evaluation and possible cystoscopy Prescriptions: New cefuroxime axetil 500 mg tablet 500 mg PO BID Qty: 14 0RF phenazopyridine [Pyridium] 200 mg tablet 200 mg PO TID PRN (Reason: pain) Qty: 14 0RF No Action celecoxib 200 mg capsule 200 mg PO DAILY Qty: 90 3RF lansoprazole 30 mg capsule,delayed release(DR/EC) 30 mg PO DAILY Qty: 90 3RF (DME) Easy Touch 3 mL 22 gauge x 1 syringe See Rx Instructions .Route Qty: 6 3RF Rx Instructions: Use to inject twice a month cyanocobalamin (vitamin B-12) 1,000 mcg/mL solution 1,000 mcg IM .twice a month Qty: 6 3RF montelukast 10 mg tablet 10 mg PO DAILY flecainide 50 mg tablet 50 mg PO BID metoprolol succinate 25 mg tablet extended release 24 hr 12.5 mg PO DAILY azelastine 137 mcg (0.1 %) aerosol,spray 137 mcg intranasal DAILY calcium carbonate-vitamin D3 [Calcium with Vitamin D] 600 mg(1,500mg) -400 unit tablet 1 tab PO DAILY flaxseed oil 1,000 mg capsule 1,000 mg PO DAILY Rx Instructions: administer with a meal denosumab 60 mg/mL syringe 60 mg subcut [id number] gabapentin 100 mg capsule 200 mg PO BEDTIME PRN albuterol sulfate [ProAir HFA] 90 mcg/actuation HFA aerosol inhaler 2 inh inhalation QID PRN (Reason: shortness of breath or wheezing) Qty: 33.5 0RF nystatin 100,000 unit/gram powder 1 appl topical TID Qty: 30 0RF Rx Instructions: Apply until symptoms resolve nitrofurantoin monohyd/m-cryst [Macrobid] 100 mg capsule 100 mg PO Q12H 5 Days Qty: 10 0RF Rx Instructions: must administer with a meal/food Referrals: Erickson uDnn MD [Physician] - 1 week Interventions: ED Discharge Assessment Last Done: 01/31/23 14:51 Discharge Date/Time: 01/31/23 14:51
[2023-01-31 11:44] LABS: Appearance Urine Clear; Color Urine Red; Glucose Urine UA Negative (Negative); Leukocyte Esterase Urine Negative (Negative); Nitrite Urine Negative (Negative); Specific Gravity - Urine <= 1.005 (1.005-1.025); UMIC TRIGGER UACC YES; Urine Blood Large (3+) (Negative); Urine Ketones Negative (Negative); Urine Protein Trace mg/dL (Neg-Trace)
[2023-01-31 11:47] LABS: MANUAL DIFF FLAG NO
[2023-01-31 11:49] LABS: Basophils Absolute Auto 0.1 X10*3/uL (0.0-0.2); Basophils Percent Auto 0.9 % (0-2); Eosinophils Absolute Auto 0.3 X10*3/uL (0.0-0.4); Eosinophils Percent Auto 3.5 % (0-4); Hematocrit 41.3 % (37.0-47.0); Hemoglobin 13.7 g/dl (12.0-16.0); Imm Gran Abs Auto 0.05 X10*3/uL (0.00-0.03); Imm Gran Pct Auto 0.5 % (0.0-0.4); Lymphocytes Absolute Auto 1.7 X10*3/uL (1.2-4.9); Lymphocytes Percent Auto 17.8 % (20-40); Mean Corpuscular HGB Conc 33.2 g/dl (31.0-35.0); Mean Corpuscular Hemoglobin 28.3 pg (27.0-33.0); Mean Corpuscular Volume 85.3 fL (80.0-98.0); Mean Platelet Volume 9.9 fL (9.4-12.3); Monocytes Absolute Auto 0.5 X10*3/uL (0.1-1.2); Monocytes Percent Auto 5.2 % (2-11); Neutrophils Absolute Auto 6.9 x10*3/uL (2.0-8.3); Neutrophils Percent Auto 72.1 % (45-73); Platelet Count 238 X10*3/uL (160-400); Red Blood Count 4.84 X10*6/uL (4.20-5.50); Red Cell Distribution Width 13.4 % (11.0-16.0); White Blood Count 9.5 X10*3/uL (4.8-10.8)
[2023-01-31 12:15] LABS: Bacteria Urine None Seen (None Seen); Hyaline Casts Urine 0-2 /LPF (0-2); RBC Urine 0-2 /HPF (0-2); Squamous Epithelial Cell Urine 0-2 /HPF (0-2); WBC Urine 0-5 /HPF (0-5)
[2023-01-31 13:10] VITALS: BP 138/64; PULSE 92; RESP 18; O2SAT 99
[2023-01-31 14:10] LABS: Alanine Aminotransferase 22 U/L (0-31); Albumin Level 4.1 g/dL (3.5-5.0); Alkaline Phosphatase 76 U/L (39-117); Anion Gap 10 (12-20); Aspartate Amino Transferase 16 U/L (5-31); Blood Urea Nitrogen 19 mg/dL (9-16); Calcium 9.4 mg/dL (8.4-10.2); Carbon Dioxide 29 mmol/L (22-29); Chloride 107 mmol/L (96-108); Creatinine Clr Calc Pharmacy 69.7; Estimated Glomerular Filt Rate > 60; Glucose Random 89 mg/dL (60-115); Potassium 4.4 mmol/L (3.3-5.1); Sodium 142 mmol/L (135-145); Total Protein 6.8 g/dL (6.5-8.0)
[2023-01-31 14:11] LABS: Bilirubin Direct 0.1 mg/dL (0.0-0.5); Bilirubin Total 0.5 mg/dL (0.0-1.0)
== END 2023-01-31 14:51 | disposition home or self-care (01) ==
PROVIDERS: Nurse Practitioner Family; Emergency Provider Emergency Medicine Emergency Medical Services; PCP Internal Medicine
DX: N30.90 Cystitis, unspecified without hematuria (principal); Z87.891 Personal history of nicotine dependence
CPT/HCPCS: 36415; 74176; 80048; 80076; 81001; 85025; 99284

== ENCOUNTER → 2023-02-11 09:20 | Outpatient (BNVA) | payer MEDICARE, SELFPAY | PROVIDERS: PCP Internal Medicine; Visit Provider Urology | DX: R31.0 Gross hematuria (principal); R30.0 Dysuria; N32.9 Bladder disorder, unspecified | CPT/HCPCS: 52000; 99212; C1747 ==

== ENCOUNTER 2023-03-10 10:17 | Day surgery (SDC) | payer MEDICARE, SELFPAY ==
[2023-03-06 12:14] VITALS: BMI 34.4
--- NOTE | 2023-03-09 11:39 | P.CONAN_ITS ---
Documented by User: Meka Boyd NP 03/09/23 11:45 HPI - Anesthesia Eval Consult details Narrative: 68yo F for Bilateral TUR Bladder Tumor,retrogrades, Bilateral Cystoscopy & Bladder Biopsy, retrogrades Medically optimized Afib, no OAC. ILR in situ (no recent afib by interrogation per preop clearance note) PMFSH Active Problems Active Problems: All Active Problems (Updated 03/06/23 @ 12:08 by Yomaira Cox, RN) Osteoporosis (Acute) Tinea cruris (Acute) Annual physical exam (Acute) Upper respiratory tract infection (Acute) Hematuria (Acute) Gross hematuria (Acute) Dysuria (Acute) Lesion of bladder (Acute) Vitamin B 12 deficiency (Acute) Multinodular thyroid (Acute) Osteoporosis (Acute) Vitamin D deficiency (Acute) Arrhythmia (Acute) Hyperlipidemia (Acute) Lymphadenopathy of head and neck (Chronic) GERD (gastroesophageal reflux disease) (Acute) Neck pain (Acute) Normal colonoscopy (Acute) Past Medical History Medical History (Updated 03/06/23 @ 12:08 by Yomaira Cox RN) Arrhythmia Asthma Atrial fibrillation GERD (gastroesophageal reflux disease) History of mammogram Hyperlipidemia Lymphadenopathy of head and neck Multinodular thyroid Neck pain Normal colonoscopy On beta kendal at home Osteoporosis Vitamin B 12 deficiency Vitamin D deficiency Family History Family History Father CAD (coronary artery disease) CVD (cardiovascular disease) Mother No problems noted. Brother Cancer Sister Liver cancer CVD (cardiovascular disease) Other Mental health disorder Family history of problems with anesthesia: No Surgical History Surgical History Carpal tunnel syndrome H/O arthroscopy of right knee H/O colonoscopy History of breast biopsy History of esophagogastroduodenoscopy (EGD) History of hysterectomy History of lumpectomy of both breasts History of rotator cuff surgery History of thyroidectomy Hx of cholecystectomy S/P foot surgery, right History of Problems with Anesthesia: No Social History Social History Housing: House Alcohol intake: current Alcohol intake frequency: holidays/special occasions only Patient Tobacco Use Status: Former Tobacco user Quit Date: 14 YRS AGO Tobacco use type: Cigarette Cigarettes Per Day: 5 Years Smoked: 35 e-Cigarette/Vaping Use: Never Used Use of substances other than those prescribed or required for medical reasons: No Are you DNR?: No Advance Directives: No Advance Directives Information Provided: Yes Current occupational status: retired Cognitive needs: No Hearing needs: No Vision needs: Yes Meds Allergies Allergy/AdvReac Type Severity Reaction Status Date / Time oxycodone [From Percocet] Allergy Mild NAUSEA,HIVES,THROWING Unverified 03/06/23 11:57 UP/ codeine [Codeine] AdvReac Mild Constipatio Verified 03/06/23 11:57 n dairy protein Allergy Severe Diarrhea Uncoded 03/06/23 11:57 dairy,eggs, wheat,nuts,mold Allergy Severe Diarrhea Uncoded 03/06/23 11:57 Home Medications Medication Instructions Recorded Confirmed Last Taken Type azelastine 137 mcg (0.1 %) nasal 137 mcg intranasal DAILY 06/26/20 03/09/23 Unknown History spray aerosol flecainide 50 mg tablet 50 mg PO BID 06/26/20 03/09/23 03/10/23 History metoprolol succinate 25 mg 12.5 mg PO DAILY 06/26/20 03/09/23 Unknown History tablet,extended release 24 hr montelukast 10 mg tablet 10 mg PO DAILY 06/26/20 03/09/23 Unknown History calcium carbonate 600 mg-vitamin 1 tab PO DAILY 01/03/21 03/09/23 Unknown History D3 10 mcg (400 unit) tablet (Calcium with Vitamin D) flaxseed oil 1,000 mg capsule 1,000 mg PO DAILY 01/03/21 03/09/23 Unknown History denosumab 60 mg/mL subcutaneous 60 mg subcut [id number] 01/20/23 03/09/23 Unknown History syringe gabapentin 100 mg capsule 200 mg PO BEDTIME PRN as directed 01/20/23 03/09/23 Unknown History Exam Exam Date and Time: March 09, 2023 1139 Height,Weight and Vital Signs: Height 5 ft Weight 79.9 kg Pertinent Lab Results Pertinent Lab Results: Laboratory Tests 01/31/23 01/31/23 11:33 13:28 WBC 9.5 Hgb 13.7 Hct 41.3 Plt Count 238 Sodium 142 Potassium 4.4 Chloride 107 Carbon Dioxide 29 BUN 19 H Creatinine 0.74 Assessment and Plan Assessment Anesthesia Assessment: Chart Reviewed Final Anesthetic Review Family History of Problems with Anesthesia: No History of Problems with Anesthesia: No Documented by User: Samantha Anna MD 03/10/23 15:12 FOR[facility]LY [facility] Past Medical History Medical History (Updated 03/06/23 @ 12:08 by Yomaira Cox RN) Arrhythmia Asthma Atrial fibrillation GERD (gastroesophageal reflux disease) History of mammogram Hyperlipidemia Lymphadenopathy of head and neck Multinodular thyroid Neck pain Normal colonoscopy On beta kendal at home Osteoporosis Vitamin B 12 deficiency Vitamin D deficiency Family History Family History Father CAD (coronary artery disease) CVD (cardiovascular disease) Mother No problems noted. Brother Cancer Sister Liver cancer CVD (cardiovascular disease) Other Mental health disorder Surgical History Surgical History Carpal tunnel syndrome H/O arthroscopy of right knee H/O colonoscopy History of breast biopsy History of esophagogastroduodenoscopy (EGD) History of hysterectomy History of lumpectomy of both breasts History of rotator cuff surgery History of thyroidectomy Hx of cholecystectomy S/P foot surgery, right Social History Social History Housing: House Alcohol intake: current Alcohol intake frequency: holidays/special occasions only Patient Tobacco Use Status: Former Tobacco user Quit Date: 14 YRS AGO Tobacco use type: Cigarette Cigarettes Per Day: 5 Years Smoked: 35 e-Cigarette/Vaping Use: Never Used Use of substances other than those prescribed or required for medical reasons: No Are you DNR?: No Advance Directives: No Advance Directives Information Provided: Yes Current occupational status: retired Cognitive needs: No Hearing needs: No Vision needs: Yes Meds Allergies Allergy/AdvReac Type Severity Reaction Status Date / Time oxycodone [From Percocet] Allergy Mild NAUSEA,HIVES,THROWING Unverified 03/06/23 11:57 UP/ codeine [Codeine] AdvReac Mild Constipatio Verified 03/06/23 11:57 n dairy protein Allergy Severe Diarrhea Uncoded 03/06/23 11:57 dairy,eggs, wheat,nuts,mold Allergy Severe Diarrhea Uncoded 03/06/23 11:57 Home Medications Medication Instructions Recorded Confirmed Last Taken Type azelastine 137 mcg (0.1 %) nasal 137 mcg intranasal DAILY 06/26/20 03/09/23 Unknown History spray aerosol flecainide 50 mg tablet 50 mg PO BID 06/26/20 03/09/23 03/10/23 History metoprolol succinate 25 mg 12.5 mg PO DAILY 06/26/20 03/09/23 Unknown History tablet,extended release 24 hr montelukast 10 mg tablet 10 mg PO DAILY 06/26/20 03/09/23 Unknown History calcium carbonate 600 mg-vitamin 1 tab PO DAILY 01/03/21 03/09/23 Unknown History D3 10 mcg (400 unit) tablet (Calcium with Vitamin D) flaxseed oil 1,000 mg capsule 1,000 mg PO DAILY 01/03/21 03/09/23 Unknown History denosumab 60 mg/mL subcutaneous 60 mg subcut [id number] 01/20/23 03/09/23 Unknown History syringe gabapentin 100 mg capsule 200 mg PO BEDTIME PRN as directed 01/20/23 03/09/23 U nknown History Exam Airway Mallampati Class: I TM Dist: >3cm Neck ROM: Full Loose/Missing/Broken Teeth: No Heart: rr Lungs: cta Assessment and Plan Assessment Anesthesia Assessment: Anesthesia Plan Discussed Final Anesthetic Review NPO: Yes ASA Class: II Final Preanesthetic Review: No Changes in Pt Med Stat, Meds/Allgs Chart Reviewed, Consent Obtained/Reviewed and Anes Risks/Benef Reviewed Patient Risk: Low Procedure Risk: Low Anesthetic Plan Anesthetic Plan: GA Disposition: Standard PACU
[2023-03-10] VITALS (8 sets, daily range): BP systolic 128–163; BP diastolic 54–73; PULSE 57–72; RESP 16–20; TEMP 36.1–36.6; O2SAT 95–100
--- NOTE | ~2023-03-10 | FL_ITS ---
EXAMINATION: XR FLUOROSCOPY WITH IMAGES CLINICAL INFORMATION: Cystoscopy, bladder biopsy, retrogrades. COMPARISON: None available. TECHNIQUE: Fluoroscopy Supervised By: Dr. Ferrer. Fluoroscopy Time: 31.5 secs. Cumulative Dose: 11.77 mGy. DAP: Gycm2. Images: 5. FINDINGS: Images demonstrate normal-appearing collecting systems and ureters bilaterally. FL/FL guidance in OR IMPRESSION: Fluoroscopy guidance for bilateral retrograde exam
[2023-03-10] MEDS: Lactated Ringers 1,000 ML 100 ML IVCONT (12:06)
--- NOTE | 2023-03-10 14:36 | MHC.SHP ---
Pre-Procedural Eval Section A Date of Service: 03/10/23 The patient is an INPATIENT: No The History & Physical has been completed within 30 days and I have reviewed it.: Yes Section B Chief Complaint: Bladder disorder, unspecified,Gross hematuria Allergies: Allergies Allergy/AdvReac Type Severity Reaction Status Date / Time oxycodone [From Percocet] Allergy Mild NAUSEA,HIVES,THROWING Unverified 03/06/23 11:57 UP/ codeine [Codeine] AdvReac Mild Constipatio Verified 03/06/23 11:57 n dairy protein Allergy Severe Diarrhea Uncoded 03/06/23 11:57 dairy,eggs, wheat,nuts,mold Allergy Severe Diarrhea Uncoded 03/06/23 11:57 Plan Diagnosis/Plan: Unchanged I have reviewed the history and physical and performed a pertinent physical examination on my patient. No changes have occurred unless specified. Cystoscopy transurethral resection bladder tumor, bladder biopsies, bilateral retrogrades Time Spent With Patient Time: Total time managing care of this patient today ____ minutes.
[2023-03-10] MEDS: fentaNYL citrate/PF 100 MCG/2 ML VIAL 25 MCG IVPUSH ×4 (16:04→16:34)
--- NOTE | 2023-03-10 16:07 | P.OP_ITS ---
Operative Note Operative Note Date of Service: 03/10/23 Narrative: PREOP DIAGNOSIS: Bladder tumor POSTOP DIAGNOSIS: Bladder tumor PROCEDURE: CYSTOSCOPY TRANSURETHRAL RESECTION OF BLADDER TUMOR, FULGURATION RANDOM BLADDER BIOPSIES, BILATERAL RETROGRADES Anesthesia: General Surgeon Dr. Read Indications: Gross hematuria, office cysto noted papillary bladder tumor Findings: Details of procedure: The patient was brought into the operating room placed on the OR table in supine position. 2 g of Ancef IV. General anesthesia was administered. The patient was repositioned into lithotomy position, prepped and draped in the usual sterile fashion. Time-out was done per protocol. 2% urojet placed. The 22 fr cystoscope as passed transurethrally into the bladder. The bladder was visualized.? Both ureteric orifices were in normal position. 3 papillary bladder tumors were seen along the left lateral wall in close proximity. The? right? ureteric orifice was cannulated? and a retrograde examination was performed, no filling defects noted. The left ureteric orifice was cannulated and a retrograde was done, again no filling defects, both right and left ureters and renal pelvis, and calyces within normal limits. Random bladder biopsies were done using the flexible biospy forceps, from the trigone, left and right lateral wall, dome and erythematous lesion left lateral wall. The [address] [place] resectoscope with obturator was passed transurethrally into the bladder. The roller ball attachment was used to cauterize the biopsied areas, good hemostasis was obtained. The loop resectoscope was used to resect and fulgurate the bladder tumors, muscle and fat was visualized in one area of the resection. Once there was good hemostasis the resectoscope was removed. A [address] catheter 10 cc balloon was passed without difficulty. The patient was brought out of anesthesia and taken to recovery in stable condition. Complications: None Drains: [address] catheter 10 cc balloon
[2023-03-10] MEDS: Phenazopyridine HCL 100 MG TABLET 200 MG PO (16:34)
--- NOTE | 2023-03-10 17:47 | PC.NURSE ---
patient educated in brady catheter care. brady changed to leg bag as per patient request. brady emptied 100 ml yellow urine.
--- NOTE | 2023-03-10 17:48 | PC.NURSE ---
dr. deirdre yan made aware patient allergic to post op medication need order alternative. . matt
== END 2023-03-10 17:50 | disposition home or self-care (01) ==
PROVIDERS: PCP Internal Medicine; Visit Provider Urology
PROC: 0TBB8ZZ Excision of Bladder, Via Natural or Artificial Opening Endoscopic (ICD-10-PCS; CPT 52234; principal; 2023-03-10 12:10)
PROC: (CPT 52234; 2023-03-10 12:10)
DX: D30.3 Benign neoplasm of bladder (principal); N30.21 Other chronic cystitis with hematuria; I48.91 Unspecified atrial fibrillation; E78.5 Hyperlipidemia, unspecified; J45.909 Unspecified asthma, uncomplicated; M81.0 Age-related osteoporosis without current pathological fracture; E53.8 Deficiency of other specified B group vitamins; E55.9 Vitamin D deficiency, unspecified; R59.0 Localized enlarged lymph nodes; Z79.899 Other long term (current) drug therapy; Z88.8 Allergy status to other drugs, medicaments and biological substances; Z90.49 Acquired absence of other specified parts of digestive tract; Z98.890 Other specified postprocedural states; Z87.891 Personal history of nicotine dependence
CPT/HCPCS: 52234; 88305; 88307; J0690; J2250; J3010; Q9967

== ENCOUNTER → 2023-03-16 14:12 | Outpatient (BNVA) | payer MEDICARE, SELFPAY | PROVIDERS: PCP Internal Medicine; Visit Provider Urology | DX: D41.4 Neoplasm of uncertain behavior of bladder (principal) | CPT/HCPCS: 99212 ==

== ENCOUNTER 2023-03-31 13:52 | Outpatient (REF) | payer MEDICARE, SELFPAY ==
--- NOTE | ~2023-03-31 | US_ITS ---
EXAMINATION: US THYROID CLINICAL INFORMATION: Postprocedural hypothyroidism. COMPARISON: CT soft tissue neck without and with contrast 01/10/2021. Ultrasound-guided thyroid biopsy 12/11/2020. Ultrasound soft tissue of the neck 09/11/2020. Ultrasound-guided thyroid biopsy 02/24/2019. Ultrasound thyroid 12/13/2018. TECHNIQUE: Linear transducer grayscale and color Doppler examination with attention to the region of the thyroid. FINDINGS: SIZE: Measurements of the solitary left thyroid lobe and nodules are given in sagittal, anteroposterior and transverse dimensions respectively. Right Thyroid Lobe: Surgically absent. Left Thyroid Lobe: 4.2 x 1.3 x 1.6 cm, volume 4.6 mL. Previously 3.9 x 1.2 x 1.4 cm, volume 3.4 mL. Parenchyma: The gland echotexture is homogeneous. Thyroid vascularity is increased. Isthmus: 0.3 cm in maximum AP dimension. Previously 0.3 cm. No suspicious thyroid nodule is seen. NODES: Right neck level III node measures 0.9 cm in transverse dimension and appears borderline with no demonstrable fatty hilum or vascularity. Previous exam demonstrated a right level III node measuring 0.9 cm. Left neck level II node measures 0.8 cm with cortical thickening and echogenic hilum. Previous exam of 09/11/2020 demonstrated a left neck level IIa node measuring 0.8 cm. US/US thyroid IMPRESSION: The right thyroid lobe is surgically absent. No suspicious left thyroid nodule is identified. Right neck level III node measures 0.9 cm in transverse dimension and appears borderline with no demonstrable fatty hilum or vascularity. Previous exam demonstrated a right level III node measuring 0.9 cm. Left neck level II node measures 0.8 cm with cortical thickening and echogenic hilum. Previous exam of 09/11/2020 demonstrated a left neck level IIa node measuring 0.8 cm. ACR TI-RADS RECOMMENDATION REFERENCE: Ultrasound-guided fine-needle aspiration, followup ultrasound, no further follow up. * TR1 (0 point) and TR2 (2 points): No FNA or follow up. * TR3 (3 points): FNA if more than or equal to 2.5 cm in maximum dimension, followup ultrasound in 1, 3 and 5 years if 1.5 to 2.4 cm in maximum dimension. * TR4 (4-6 points): FNA if more than or equal to 1.5 cm in maximum dimension, followup ultrasound in 1, 2, 3 and 5 years if 1 to 1.4 cm in maximum dimension. * TR5 (more than or equal to 7 points): FNA if more than or equal to 1 cm in maximum dimension, followup ultrasound every year for 5 years if 0.5 to 0.9 cm in maximum dimension. * TR3, TR4 or TR5 nodules that are below the size threshold for followup receive no follow up.
--- NOTE | ~2023-03-31 | US_ITS ---
EXAMINATION: US SOFT TISSUE FOREARM, LEFT CLINICAL INFORMATION: Localized swelling, mass and lump, tenderness in area of subcutaneous attempted removal of tumor by machine folder, no lipoma excised. Left dorsal upper forearm area of healed incision. COMPARISON: None available. TECHNIQUE: Targeted ultrasound images were obtained by the relief pharmacist of the area of concern as indicated by the patient in the dorsal aspect of the upper forearm in the area of the previous incision. Radiologist was not in attendance. Images were later provided for interpretation. No discrete mass or fluid collection identified in the area of concern indicated by the patient at the dorsal aspect of the upper left forearm. US/US extremity nonvascular leija IMPRESSION: No discrete mass or fluid collection identified in the area of concern indicated by the patient at the site of the incision at the dorsal aspect of the upper left forearm. Decisions regarding further imaging such as CT scan or MRI, treatment or biopsy should be based on the clinical exam, as not all abnormalities are detectable on ultrasound studies.
== END 2023-03-31 13:53 | disposition home or self-care (01) ==
LOC: HO.HMGCX 13:52
PROVIDERS: PCP Internal Medicine; Visit Provider Internal Medicine
DX: R22.30 Localized swelling, mass and lump, unspecified upper limb (principal); E89.0 Postprocedural hypothyroidism
CPT/HCPCS: 76536; 76882

== ENCOUNTER 2023-04-24 08:55 | Outpatient (AMB) | payer MEDICARE, SELFPAY ==
--- NOTE | 2023-04-24 08:56 | MHC.OFFVIS ---
Intake Vital Signs 04/24/23 09:07 Height 5 ft 2 in Weight 174 lb 4 oz BMI 31.9 BP 126/61 Blood Pressure Location Lt brachial Position Sitting Pulse 59 Intake Visit Reasons: Mass Lt forearm Intake Note: Patient is seen in office for evaluation and treatment of left forearm mass. Patient c/o: onset couple of yrs, was seen by a skill training program coordinator and they tried to removed it and they did not find nothing to remove, after the area got infected, currently is smaller and very painful, had an ultrasound done Rehabilitation Team Lead Required: No Accompanied by: Self / Same As Patient Allergies oxycodone [From Percocet] Allergy (Mild, Unverified 04/24/23 09:03) NAUSEA,HIVES,THROWING UP/ codeine [Codeine] Adverse Reaction (Mild, Verified 04/24/23 09:03) Constipation dairy protein Allergy (Severe, Uncoded 04/24/23 09:03) Diarrhea dairy,eggs, wheat,nuts,mold Allergy (Severe, Uncoded 04/24/23 09:03) Diarrhea Medication List - Last Reconciled 04/24/23 by Garrett Bullock MD albuterol sulfate 90 mcg/actuation (ProAir HFA) 2 inhalations inhalation QID PRN azelastine 137 mcg intranasal DAILY calcium carbonate-vitamin D3 600 mg-10 mcg (400 unit) (Calcium with Vitamin D) 1 tab PO DAILY celecoxib 200 mg PO DAILY cyanocobalamin (vitamin B-12) 1,000 mcg IM .twice a month denosumab 60 mg subcut [id number] flaxseed oil 1,000 mg PO DAILY flecainide 50 mg PO BID gabapentin 200 mg PO BEDTIME PRN lansoprazole 30 mg PO DAILY metoprolol succinate ER 12.5 mg PO DAILY montelukast 10 mg PO DAILY syringe with needle (Easy Touch) Use to inject twice a month HPI HPI Comments History of Present Illness Details 68-year-old female patient presenting with a left forearm soft tissue mass. The lesion is been present for several years in seems to be increasing in size. She now reports discomfort associated with the lesion. She underwent attempted excision on 02/25/2023 by her skill training program coordinator. The initial thought was this may be a lipoma however no lipoma could be identified. General surgical consultation was recommended. An ultrasound of the left forearm revealed no discrete mass or fluid collection in the area of concern. She reports an infection in the left arm following the procedure which resulted in swelling into the upper arm. This is now resolved but she continues to have tenderness at the site. She denies fever or chills. FORMERLY [facility] Medical History Arrhythmia Asthma Atrial fibrillation GERD (gastroesophageal reflux disease) History of mammogram Hyperlipidemia Lymphadenopathy of head and neck Multinodular thyroid Neck pain Normal colonoscopy On beta kendal at home Osteoporosis Vitamin B 12 deficiency Vitamin D deficiency Surgical History Carpal tunnel syndrome H/O arthroscopy of right knee H/O colonoscopy History of breast biopsy History of esophagogastroduodenoscopy (EGD) History of hysterectomy History of lumpectomy of both breasts History of rotator cuff surgery History of thyroidectomy Hx of cholecystectomy S/P foot surgery, right Family History Father CAD (coronary artery disease) CVD (cardiovascular disease) Mother No problems noted. Brother Cancer Sister Liver cancer CVD (cardiovascular disease) Other Mental health disorder Social History Housing: House Alcohol intake: current Alcohol intake frequency: holidays/special occasions only Patient Tobacco Use Status: Former Tobacco user Quit Date: 14 YRS AGO Tobacco use type: Cigarette Cigarettes Per Day: 5 Years Smoked: 35 e-Cigarette/Vaping Use: Never Used Current occupational status: retired Cognitive needs: No Hearing needs: No Vision needs: Yes Review of Systems Const All systems reviewed & are unremarkable except as noted in HPI and below Physical Exam Vital Signs: Last Vital Signs Pulse 59 04/24/23 09:07 BP 126/61 04/24/23 09:07 BMI result Body Mass Index 31.9 Const General: cooperative and no acute distress Nutritional Appearance: well nourished Orientation/consciousness: patient oriented x3 Limitations: no limitations HEENT Head: Yes normocephalic and Yes atraumatic Ears: hearing grossly normal bilaterally Resp Effort & Inspection: normal respiratory effort, no audible wheezes, no cough and no respiratory distress Cardio Jugular venous distension: no JVD GI Inspection: Yes normal to inspection Skin Other: Warm, dry, no rash Neuro General: patient oriented x3 Extrem Other: Tangential incision noted in the dorsal surface of the left forearm measuring approximately 3 cm in length with a surrounding area of light erythema. Area is tender to palpation. There is a slight swelling below the incision but no definite lipoma or masses appreciated. Site is difficult to palpate due to patient's tenderness. No definite muscle mass could be appreciated General: Yes no clubbing, cyanosis or edema Assessment & Plan Assessment & Plan (1) Mass of arm: Comment: left Code(s): R22.30 - Localized swelling, mass and lump, unspecified upper limb Plan 68-year-old female patient with a soft tissue mass of the left forearm, s/p attempted excision by Dermatology. Subsequent ultrasound revealed no suspicious fluid collection or mass. There is definitely an area of swelling but I am uncertain if this is related to the surgical procedure or the underlying mass. I recommended further evaluation with an MRI of the left forearm. I recommended she return following the study to review the results and discuss treatment options. Orders: Orders MR forearm LT w con Today R22.30 - Localized swelling, mass and lump, unspecified upper limb Coding Level of Care Code New Pt Level 4 (40237) Diagnoses Mass of arm R22.30
[2023-04-24 09:07] VITALS: BP 126/61; PULSE 59; BMI 31.9
== END 2023-04-24 09:13 | disposition home or self-care (01) ==
PROVIDERS: PCP Physician Assistant; Referring Provider Internal Medicine; Visit Provider Surgery
DX: R22.32 Localized swelling, mass and lump, left upper limb (principal)
CPT/HCPCS: 99204

== ENCOUNTER → 2023-04-24 08:55 | Outpatient (BNVA) | payer MEDICARE, SELFPAY | PROVIDERS: PCP Physician Assistant; Referring Provider Internal Medicine; Visit Provider Surgery | DX: R22.30 Localized swelling, mass and lump, unspecified upper limb (principal) | CPT/HCPCS: 99202 ==

== ENCOUNTER 2023-05-21 16:41 | Outpatient (REF) | payer MEDICARE, SELFPAY ==
--- NOTE | ~2023-05-21 | MR_ITS ---
EXAMINATION: MRI OF THE LEFT FOREARM WITHOUT AND WITH CONTRAST INDICATION: Localized swelling, mass and lump, unspecified upper limb. Soft tissue mass in the left forearm. Negative ultrasound. COMPARISON: MRI left wrist dated 05/30/2015. TECHNIQUE: Multiplanar MR imaging was obtained through the left forearm on a 1.5 Stephanie magnet before and after intravenous administration of 8 mL Gadavist. FINDINGS: There is subtle skin thickening in the region of palpable abnormality with very subtle ill-defined, [id number] intermediate T2 signal intensity in the subcutaneous fat in this region. No discretely marginated lesions are identified in this region. No fluid collections or abnormal enhancement. Underlying musculature is normal in signal intensity. No appreciable fascial defects or muscle edema signal/fatty atrophy. Underlying bone marrow signal is normal. As seen on prior images, there is a cystic lesion in the lateral cortex of the distal radial metadiaphysis which measures approximately 1 cm in length, is unchanged from prior studies and is nonaggressive. No suspicious osseous lesions. Imaged portions of the wrist and elbow joints are unremarkable. MR/MR forearm LT wo/w con IMPRESSION: 1. Subtle skin thickening in the region of the palpable abnormality in the left forearm with subtle nonmasslike signal abnormality in the underlying subcutaneous fat. This is of uncertain etiology, potentially due to soft tissue contusion or inflammation in the overlying skin. No suspicious lesions are identified. No fluid collections or masses. 2. A non-aggressive 1 cm cystic lesion in the distal radial metadiaphysis is unchanged from prior studies dating back to 2014 and is of doubtful clinical significance. No recommended imaging followup.
[2023-05-21] MEDS: gadobutroL 10 ML VIAL IVPUSH (17:53)
== END 2023-05-21 16:42 | disposition home or self-care (01) ==
LOC: HO.MRI 16:41
PROVIDERS: PCP Physician Assistant; Visit Provider Surgery
DX: R22.31 Localized swelling, mass and lump, right upper limb (principal)
CPT/HCPCS: 73220; A9585

== ENCOUNTER 2023-05-28 09:46 | Outpatient (AMB) | payer MEDICARE, SELFPAY ==
--- NOTE | 2023-05-28 09:57 | MHC.OFFVIS ---
Intake Vital Signs 05/28/23 10:07 Height 5 ft 2 in Weight 177 lb 6 oz BMI 32.4 BP 136/61 Blood Pressure Location Lt brachial Position Sitting Pulse 61 Intake Visit Reasons: Mass left forearm, MRI results Intake Note: Patient is seen in office for MRI results, following mass on the left forearm. Patient c/o: denies any changes since last visit Irrigator Gravity Flow Required: No Accompanied by: Self / Same As Patient Allergies oxycodone [From Percocet] Allergy (Mild, Unverified 05/28/23 09:59) NAUSEA,HIVES,THROWING UP/ codeine [Codeine] Adverse Reaction (Mild, Verified 05/28/23 09:59) Constipation dairy protein Allergy (Severe, Uncoded 05/28/23 09:59) Diarrhea dairy,eggs, wheat,nuts,mold Allergy (Severe, Uncoded 05/28/23 09:59) Diarrhea Medication List - Last Reconciled 05/28/23 by Garrett Bullock MD albuterol sulfate 90 mcg/actuation (ProAir HFA) 2 inhalations inhalation QID PRN azelastine 137 mcg intranasal DAILY calcium carbonate-vitamin D3 600 mg-10 mcg (400 unit) (Calcium with Vitamin D) 1 tab PO DAILY celecoxib 200 mg PO DAILY cyanocobalamin (vitamin B-12) 1,000 mcg IM .twice a month denosumab 60 mg subcut [id number] flaxseed oil 1,000 mg PO DAILY flecainide 50 mg PO BID gabapentin 200 mg PO BEDTIME PRN lansoprazole 30 mg PO DAILY metoprolol succinate ER 12.5 mg PO DAILY montelukast 10 mg PO DAILY syringe with needle (Easy Touch) Use to inject twice a month HPI HPI Comments History of Present Illness Details 68-year-old female patient presenting with a left forearm soft tissue mass. The lesion is been present for several years in seems to be increasing in size. She now reports discomfort associated with the lesion. She underwent attempted excision on 02/25/2023 by her customer service agent. The initial thought was this may be a lipoma however no lipoma could be identified. General surgical consultation was recommended. An ultrasound of the left forearm revealed no discrete mass or fluid collection in the area of concern. She reports an infection in the left arm following the procedure which resulted in swelling into the upper arm. This is now resolved but she continues to have tenderness at the site. She denies fever or chills. She subsequently underwent MRI of the left forearm. She returns today to review the results. This revealed some minor skin thickening and non mass subcutaneous changes. No mass or cyst could be identified. A copy of the report was provided to the patient in the images were reviewed in detail with the patient today. [facility] Medical History On beta kendal at home Atrial fibrillation Vitamin B 12 deficiency Multinodular thyroid Osteoporosis Vitamin D deficiency Lymphadenopathy of head and neck Neck pain Normal colonoscopy History of mammogram Asthma Hyperlipidemia GERD (gastroesophageal reflux disease) Arrhythmia Surgical History History of lumpectomy of both breasts Hx of cholecystectomy History of esophagogastroduodenoscopy (EGD) H/O colonoscopy History of thyroidectomy S/P foot surgery, right History of rotator cuff surgery Carpal tunnel syndrome H/O arthroscopy of right knee History of breast biopsy History of hysterectomy Family History Father CAD (coronary artery disease) CVD (cardiovascular disease) Mother No problems noted. Brother Cancer Sister Liver cancer CVD (cardiovascular disease) Other Mental health disorder Social History Housing: House Alcohol intake: current Alcohol intake frequency: holidays/special occasions only Patient Tobacco Use Status: Former Tobacco user Quit Date: 14 YRS AGO Tobacco use type: Cigarette Cigarettes Per Day: 5 Years Smoked: 35 e-Cigarette/Vaping Use: Never Used Current occupational status: retired Cognitive needs: No Hearing needs: No Vision needs: Yes Review of Systems Const All systems reviewed & are unremarkable except as noted in HPI and below Physical Exam Vital Signs: Last Vital Signs Pulse 61 05/28/23 10:07 BP 136/61 05/28/23 10:07 BMI result Body Mass Index 32.4 Const General: cooperative and no acute distress Nutritional Appearance: well nourished Orientation/consciousness: patient oriented x3 Limitations: no limitations HEENT Head: Yes normocephalic and Yes atraumatic Ears: hearing grossly normal bilaterally Resp Effort & Inspection: normal respiratory effort, no audible wheezes, no cough and no respiratory distress Cardio Jugular venous distension: no JVD GI Inspection: Yes normal to inspection Skin Other: Warm, dry, no rash Neuro General: patient oriented x3 Extrem Other: Tangential incision noted in the dorsal surface of the left forearm measuring approximately 3 cm in length with a surrounding area of light erythema. Area is tender to palpation. There is a slight swelling below the incision but no definite lipoma or masses appreciated. Site is difficult to palpate due to patient's tenderness. No definite muscle mass could be appreciated General: Yes no clubbing, cyanosis or edema Assessment & Plan Assessment & Plan (1) Mass of arm: Comment: left Code(s): R22.30 - Localized swelling, mass and lump, unspecified upper limb Qualifiers: Laterality: left Qualified Code(s): R22.32 - Localized swelling, mass and lump, left upper limb Plan 68-year-old female patient with a soft tissue mass of the left forearm, s/p attempted excision by Dermatology. Subsequent ultrasound revealed no suspicious fluid collection or mass. She returns today following an MRI of the left forearm. This confirmed no definite mass or collection with normal overlying muscle. No surgical intervention is recommended at this time. She should call for any new changes. Coding Level of Care Code Est Pt Level 3 (42833) Diagnoses Mass of left upper extremity R22.32 Laterality: left
[2023-05-28 10:07] VITALS: BP 136/61; PULSE 61; BMI 32.4
== END 2023-05-28 10:16 | disposition home or self-care (01) ==
PROVIDERS: PCP Physician Assistant; Visit Provider Surgery
DX: R22.32 Localized swelling, mass and lump, left upper limb (principal)
CPT/HCPCS: 99213

== ENCOUNTER → 2023-05-28 09:46 | Outpatient (BNVA) | payer MEDICARE, SELFPAY | PROVIDERS: PCP Physician Assistant; Visit Provider Surgery | DX: R22.32 Localized swelling, mass and lump, left upper limb (principal) | CPT/HCPCS: 99212 ==

== ENCOUNTER 2023-06-09 11:22 | Outpatient (REF) | payer MEDICARE, SELFPAY ==
[2023-06-09 13:39] LABS: Appearance Urine Turbid; Color Urine Dark Yellow; Glucose Urine UA Negative (Negative); Leukocyte Esterase Urine Trace (Negative); Nitrite Urine Negative (Negative); PH 5.5 (5.0-9.0); Specific Gravity - Urine >= 1.030 (1.005-1.025); UMIC TRIGGER UA YES; Urine Blood Negative (Negative); Urine Ketones Negative (Negative); Urine Protein Negative (Neg-Trace)
[2023-06-09 14:33] LABS: Calcium Oxalate Crystals Urine Present; RBC Urine 0-2 /HPF (0-2); Squamous Epithelial Cell Urine 0-2 /HPF (0-2); WBC Urine 0-5 /HPF (0-5)
[2023-06-09 14:34] LABS: Bacteria Urine 1+ (None Seen); Hyaline Casts Urine 0-2 /LPF (0-2)
== END 2023-06-09 11:23 | disposition home or self-care (01) ==
LOC: HO.HMGCLDS 11:22
PROVIDERS: PCP Internal Medicine; Visit Provider Urology
DX: R30.0 Dysuria (principal)
CPT/HCPCS: 81001; 87086

== ENCOUNTER 2023-07-21 11:13 | Outpatient (REF) | payer MEDICARE, SELFPAY ==
[2023-07-21 14:10] LABS: Anion Gap 11 (12-20); Blood Urea Nitrogen 18 mg/dL (9-16); Carbon Dioxide 28 mmol/L (22-29); Chloride 106 mmol/L (96-108); Potassium 4.1 mmol/L (3.3-5.1); Sodium 141 mmol/L (135-145)
[2023-07-21 14:11] LABS: Alanine Aminotransferase 16 U/L (0-31); Albumin Level 3.9 g/dL (3.5-5.0); Alkaline Phosphatase 62 U/L (39-117); Aspartate Amino Transferase 14 U/L (5-31); Bilirubin Total 0.3 mg/dL (0.0-1.0); Calcium 9.4 mg/dL (8.4-10.2); Estimated Glomerular Filt Rate > 60; Glucose Random 93 mg/dL (60-115); Phosphorus 3.3 mg/dL (2.7-4.5); Total Protein 6.9 g/dL (6.5-8.0)
[2023-07-21 14:16] LABS: Free T4 (Free Thyroxine) 0.79 ng/dL (0.71-1.85); Thyroid Stimulating Hormone 2.98 uIU/mL (0.32-4.0); Vitamin D 25-OH Total 62.6 ng/mL (>30)
[2023-07-22 18:13] LABS: Calcium (PTHI) 9.4 mg/dL (8.6-10.4); PTHI 56 pg/mL (16-77)
[2023-07-24 19:54] LABS: Alkaline Phosphatase Bone 8.6 mcg/L (5.6-29.0)
== END 2023-07-21 11:14 | disposition home or self-care (01) ==
LOC: HO.HMGCLDS 11:13
PROVIDERS: PCP Internal Medicine; Visit Provider Internal Medicine
DX: M81.0 Age-related osteoporosis without current pathological fracture (principal); E55.9 Vitamin D deficiency, unspecified; E04.2 Nontoxic multinodular goiter
CPT/HCPCS: 36415; 80053; 82306; 83970; 84075; 84100; 84439; 84443

== ENCOUNTER 2023-07-23 07:03 | Outpatient (REF) | payer MEDICARE, SELFPAY ==
[2023-07-30 21:38] LABS: N-Telopeptide 49 (see note); NTXCreaRU 66 mg/dL (20-275)
== END 2023-07-23 07:04 | disposition home or self-care (01) ==
LOC: HO.HMGCLNP 07:03
PROVIDERS: PCP Internal Medicine; Visit Provider Internal Medicine
DX: M81.0 Age-related osteoporosis without current pathological fracture (principal)
CPT/HCPCS: 82523

== ENCOUNTER → 2023-07-28 09:47 | Outpatient (BNVA) | payer MEDICARE, SELFPAY | PROVIDERS: PCP Internal Medicine; Visit Provider Internal Medicine Endocrinology, Diabetes & Metabolism | DX: M81.0 Age-related osteoporosis without current pathological fracture (principal) | CPT/HCPCS: 96372; J0897 ==

== ENCOUNTER → 2023-07-28 10:05 | Outpatient (AMB) | payer MEDICARE, SELFPAY ==
--- NOTE | 2023-07-28 10:14 | AM.OFFVISNUR ---
Intake Intake Visit Reasons: Prolia Allergies oxycodone [From Percocet] Allergy (Mild, Unverified 05/28/23 09:59) NAUSEA,HIVES,THROWING UP/ codeine [Codeine] Adverse Reaction (Mild, Verified 05/28/23 09:59) Constipation dairy protein Allergy (Severe, Uncoded 05/28/23 09:59) Diarrhea dairy,eggs, wheat,nuts,mold Allergy (Severe, Uncoded 05/28/23 09:59) Diarrhea Office Meds Prolia 60 mg/mL subcutaneous syringe Performing Provider: Javier Garner MD [place] [facility] [place] [facility] Administered by: Nicole Amezquita LPN on 07/28/23 10:14 Dose Route Admin Location Dispensed Lot Number Expiration Date NDC Churn Operator Margarine 60 mg subcut Left upper arm 1 mL [id number] 12/12/25 [facility] Coding Assessment & Plan Assessment & Plan Orders: Orders AMB Denosumab Injection Patient Supplied Today M81.0 - Age-related osteoporosis without current pathological fracture
== END | disposition home or self-care (01) ==
LOC: HO.ENCR 09:47
PROVIDERS: PCP Internal Medicine; Visit Provider Internal Medicine Endocrinology, Diabetes & Metabolism
DX: M81.0 Age-related osteoporosis without current pathological fracture (principal)

== ENCOUNTER 2023-08-04 10:28 | Outpatient (AMB) | payer MEDICARE, SELFPAY ==
[2023-08-04 10:51] VITALS: BP 138/78; PULSE 56; O2SAT 98; BMI 32.2
--- NOTE | 2023-08-04 10:51 | A.OFFPC_ITS ---
Vital Signs 08/04/23 10:51 Height 5 ft 2 in Weight 176 lb 2 oz BMI 32.2 BP 138/78 Blood Pressure Location Lt brachial Position Sitting Pulse 56 Pulse Source Pulse Oximeter Pulse Oximetry (%) 98 Oxygen Delivery Method Room Air Intake Visit Reasons: Transfer of care Dr. Hinojosa Manager It Training Required: No Accompanied by: Self / Same As Patient Allergies oxycodone [From Percocet] Allergy (Mild, Verified 08/04/23 11:19) NAUSEA,HIVES,THROWING UP/ codeine [Codeine] Adverse Reaction (Mild, Verified 08/04/23 11:19) Constipation dairy protein Allergy (Severe, Uncoded 05/28/23 09:59) Diarrhea dairy,eggs, wheat,nuts,mold Allergy (Severe, Uncoded 05/28/23 09:59) Diarrhea Medication List - Last Reconciled 08/04/23 by Louis Quijano PA-C albuterol sulfate 90 mcg/actuation (ProAir HFA) 2 inhalations inhalation QID PRN azelastine 137 mcg intranasal DAILY calcium carbonate-vitamin D3 600 mg-10 mcg (400 unit) (Calcium with Vitamin D) 1 tab PO DAILY celecoxib 200 mg PO DAILY cyanocobalamin (vitamin B-12) 1,000 mcg IM .twice a month denosumab 60 mg subcut [id number] flaxseed oil 1,000 mg PO DAILY flecainide 50 mg PO BID gabapentin 200 mg PO BEDTIME PRN lansoprazole 30 mg PO DAILY metoprolol succinate ER 12.5 mg PO DAILY montelukast 10 mg PO DAILY syringe with needle (Easy Touch) Use to inject twice a month Tobacco use date assessed: 01/20/23 Fall risk assessment: No Falls in past year Last assessed Fall Risk: 08/04/23 Dental Screening Dental Screen Date: 08/04/23 Did you have a dental visit in the last 12 months?: Yes Did you have a dental problem in the last 6 months where you did not have access to dental care?: No Was dental information given to patient?: Patient has dentist HPI Transfer of care Dr. Hinojosa HPI Details Patient is 68-year-old female here today for a transfer care visit. 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 Recently seen at [facility] for acute nausea and abdominal pain. CT abdomen showing colitis. Has since continued to have intermittent constipation and diarrhea. Has been trying [id number] probiotics and fiber with only limited relief. .. AFIB/ SVT: Patient is followed by drafter electrical. (DR Edmond) Continues on rate control with metoprolol. Was to have cardiac ablation and is still considering. She currently is not on any anticoagulation at this time. She will ask her drafter electrical about anticoagulation. .. Osteoporosis: Currently taking Prolia on a every 6 months basis through Endocrine. .. Bladder lesion- had a recent history of gross hematuria to which she followed up with Urology and had a cystoscopy which did show biopsy consistent with a papilloma the bladder. This is benign and bleeding has subsided. [facility] Medical History (Updated 08/05/23 @ 07:29 by Louis Quijano PA-C) On beta kendal at home Atrial fibrillation Vitamin B 12 deficiency Multinodular thyroid Osteoporosis Vitamin D deficiency Lymphadenopathy of head and neck Neck pain Normal colonoscopy History of mammogram Asthma Hyperlipidemia GERD (gastroesophageal reflux disease) Arrhythmia Surgical History History of lumpectomy of both breasts Hx of cholecystectomy History of esophagogastroduodenoscopy (EGD) H/O colonoscopy History of thyroidectomy S/P foot surgery, right History of rotator cuff surgery Carpal tunnel syndrome H/O arthroscopy of right knee History of breast biopsy History of hysterectomy Family History Father CAD (coronary artery disease) CVD (cardiovascular disease) Mother No problems noted. Brother Cancer Sister Liver cancer CVD (cardiovascular disease) Other Mental health disorder Housing: House Alcohol intake: current Alcohol intake frequency: holidays/special occasions only Patient Tobacco Use Status: Former Tobacco user Quit Date: 14 YRS AGO Tobacco use type: Cigarette Cigarettes Per Day: 5 Years Smoked: 35 e-Cigarette/Vaping Use: Never Used Current occupational status: retired Cognitive needs: No Hearing needs: No Vision needs: Yes Questionnaire Thrive Questionnaire Date Thrive assessed: 01/20/23 ELIUD-7 AMB Questionnaire ELIUD-7 Date ELIUD - 7 assessed: 01/20/23 Source: Developed by Drs. Javier Bernal, Neisha Mejia, Gaurav Gardner and colleagues, with an educational samantha from [employer]. Review of Systems Const Denies headache(s) Eyes Denies loss of vision ENT Denies vertigo, Denies dizziness, Denies headache(s) and Denies sore throat Card Denies chest pain, Denies leg edema and Denies lightheadedness Resp Denies cough, Denies hemoptysis and Denies wheezing GI Denies abdominal pain, Denies melena, Reports constipation, Reports diarrhea, Reports loose stools and Denies vomiting Denies urinary frequency, Denies dysuria and Denies urinary urgency Musc Denies arthralgias, Denies joint swelling, Denies numbness and Denies tingling Neuro Denies Abnormal speech present, Denies behavioral changes, Denies vertigo, Denies dizziness, Denies headache(s), Denies loss of vision, Denies memory loss, Denies numbness and Denies tingling Psych Denies anxiety, Denies behavioral changes, Denies depression, Denies memory loss and Denies panic attacks Luis Enrique/Lymph Denies easy bleeding and Denies easy bruising Aller/Immun Denies wheezing Physical exam (Primary Care) Vital Signs: Last Vital Signs Pulse 56 08/04/23 10:51 BP 138/78 08/04/23 10:51 Pulse Ox 98 08/04/23 10:51 Oxygen Delivery Method Room Air 08/04/23 10:51 BMI result Body Mass Index 32.2 BMI Assessment/Plan discussion: High Tobacco/Smoking Status: Tobacco use Status Tobacco use date assessed 01/20/23 08/04/23 10:52 Patient Tobacco Use Status Former Tobacco user 08/04/23 10:52 Tobacco use type Cigarette 08/04/23 10:52 e-Cigarette/Vaping Use Never Used 08/04/23 10:52 Thrive Assessment: Date of Thrive Assessment Date Thrive assessed 01/20/23 08/04/23 10:52 Const Other: Obese General: healthy appearing, no acute distress, alert and awake Nutritional Appearance: well nourished Orientation/consciousness: oriented to person, oriented to place and oriented to time HENMT Ears: TM's normal bilaterally General nose exam: Normal nasal mucous membranes and turbinates present Eyes Conjunctivae: conjunctivae normal Sclerae: sclerae normal Pupils: Equal, round and reactive pupils present Neck Neck: Yes no lymphadenopathy and Yes no JVD Thyroid: Thyroid normal Carotids: no bruits Resp Effort & Inspection: normal respiratory effort and not tachypneic Auscultation: no crackles, no rales, no rhonchi and no wheezes Cardio Rate: regular rate Rhythm: regular rhythm Heart sounds: no murmurs and normal S1 and S2 GI Palpation (GI): Soft to palpation, nontender, no hepatomegaly and no splenomegaly Auscultation: normal bowel sounds Skin General skin exam: no rashes or lesions noted and dry skin Neuro General: oriented to person, oriented to place and oriented to time Cranial nerves: Yes Equal, round and reactive pupils present Speech: No Abnormal speech present Gait exam (Neuro): Normal gait present Motor exam (neuro): no tremor noted Extrem Right upper extremity: full ROM Left upper extremity: full ROM Right lower extremity: full ROM; no edema Left lower extremity: full ROM; no edema Psych Mental Status: mental status grossly normal Speech and movement: Normal speech and movement present Affect: normal affect Attitude: cooperative Thought process: Normal thought process present Assessment and Plan Assessment & Plan (1) Atrial fibrillation: Code(s): I48.91 - Unspecified atrial fibrillation Qualifiers: Atrial fibrillation type: paroxysmal Qualified Code(s): I48.0 - Paroxysmal atrial fibrillation Plan: Patient followed by drafter electrical at [facility]. She reports she is due for a cardiac ablation has been on hold due to scheduling issues. She continues on metoprolol and flecainide for her rate and rhythm control which has been helpful. Currently not on any anticoagulation or antiplatelet therapy though unclear as to why. 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 Gross hematuria has subsided (3) Osteoporosis: Comment: Started on 2018, f/u endo Code(s): M81.0 - Age-related osteoporosis without current pathological fracture Qualifiers: Osteoporosis type: age-related Presence of current pathological fracture: without current pathological fracture Qualified Code(s): M81.0 - Age- related osteoporosis without current pathological fracture Plan: Continues to follow Endocrinology and gets Prolia injections on a 6 month basis. She reports her most recent DEXA screening showed osteopenia. (4) Hyperlipidemia: Comment: intolerant to Simvastatin, body aches-- NO MEDS CURRENTLY NEEDED, nl coronary angiogram 08/2017 Code(s): E78.5 - Hyperlipidemia, unspecified Qualifiers: Hyperlipidemia type: mixed hyperlipidemia Qualified Code(s): E78.2 - Mixed hyperlipidemia Plan: Has not been able to tolerate statin therapy. Will continue to follow lipid panel to assure appropriate total cholesterol and LDL. Goal LDL is to be below 130 (5) SVT (supraventricular tachycardia): Code(s): I47.10 - Supraventricular tachycardia, unspecified Plan: Continues to follow cardiology (6) Obese: Code(s): E66.9 - Obesity, unspecified Qualifiers: Obesity type: due to excess calories Obesity classification: adult class 1 (BMI 30 - 34.9) Serious obesity comorbidity presence: without serious comorbidity Body mass index: BMI 32.0-32.9 Qualified Code(s): E66.09 - Other obesity due to excess calories; Z68.32 - Body mass index [BMI] 32.0-32.9, adult Plan: Patient does understand her BMI is over 30 and will work on being more physically active and adapting to better eating habits to reduce her weight. She unfortunately has foot issues that hinder her ability to be more physically active. She will try the pool to be more physically active. (7) Allergic conjunctivitis and rhinitis: Code(s): H10.10 - Acute atopic conjunctivitis, unspecified eye; J30.9 - Allergic rhinitis, unspecified Qualifiers: Laterality: bilateral Qualified Code(s): H10.13 - Acute atopic conjunctivitis, bilateral; J30.9 - Allergic rhinitis, unspecified Plan: Patient continues with the use of nasal spray and antihistamine oral therapy with good effect on reducing her allergic rhinitis. (8) Vitamin B 12 deficiency: Code(s): E53.8 - Deficiency of other specified B group vitamins Plan: Continues with B12 injections and is interested in stopping the injections in near future. Will continue them for the next 6 months and recheck B12 Orders: Orders Complete Blood Count no Diff 08/04/23 I48.0 - Paroxysmal atrial fibrillation Lipid Panel 08/04/23 E78.2 - Mixed hyperlipidemia Comprehensive [place]. Panel Fast 08/04/23 E78.2 - Mixed hyperlipidemia Vitamin B12 and Folate 08/04/23 E53.8 - Deficiency of other specified B group vitamins Medications: Changed From azelastine 137 mcg intranasal DAILY H10.10 - Acute atopic conjunctivitis, unspecified eye, J30.9 - Allergic rhinitis, unspecified To azelastine 137 mcg (0.137 mL) intranasal DAILY 30 days 30 mL 3RF H10.10 - Acute atopic conjunctivitis, unspecified eye, J30.9 - Allergic rhinitis, unspecified From montelukast 10 mg PO DAILY H10.10 - Acute atopic conjunctivitis, unspecified eye, J30.9 - Allergic rhinitis, unspecified To montelukast 10 mg PO DAILY 90 days 90 tabs 2RF H10.10 - Acute atopic conjunctivitis, unspecified eye, J30.9 - Allergic rhinitis, unspecified Refilled syringe with needle (Easy Touch) Use to inject twice a month 6 ea 3RF E53.8 - Deficiency of other specified B group vitamins Coding Level of Care Code Est Pt Level 4 (58370) Diagnoses Paroxysmal atrial fibrillation I48.0 Atrial fibrillation type: paroxysmal Inverted papilloma of bladder D41.4 Age-related osteoporosis without current pathological fracture M81.0 Osteoporosis type: age-related Presence of current pathological fracture: without current pathological fracture Mixed hyperlipidemia E78.2 Hyperlipidemia type: mixed hyperlipidemia SVT (supraventricular tachycardia) I47.10 Class 1 obesity due to excess calories without serious comorbidity with body mass index (BMI) of 32.0 to 32.9 in adult E66.09; Z68.32 Obesity type: due to excess calories Obesity classification: adult class 1 (BMI 30 - 34.9) Serious obesity comorbidity presence: without serious comorbidity Body mass index: BMI 32.0-32.9 Allergic conjunctivitis of both eyes and rhinitis H10.13; J30.9 Laterality: bilateral Vitamin B 12 deficiency E53.8
== END 2023-08-04 11:55 | disposition home or self-care (01) ==
PROVIDERS: PCP Physician Assistant; Visit Provider Physician Assistant
DX: I48.0 Paroxysmal atrial fibrillation (principal); D41.4 Neoplasm of uncertain behavior of bladder; M81.0 Age-related osteoporosis without current pathological fracture; E78.2 Mixed hyperlipidemia; I47.10 Supraventricular tachycardia, unspecified; E66.09 Other obesity due to excess calories; Z68.32 Body mass index [BMI] 32.0-32.9, adult; H10.13 Acute atopic conjunctivitis, bilateral; J30.9 Allergic rhinitis, unspecified; E53.8 Deficiency of other specified B group vitamins
CPT/HCPCS: 99214

== ENCOUNTER 2023-09-08 13:38 | Outpatient (AMB) | payer MEDICARE, SELFPAY ==
--- NOTE | 2023-09-08 13:59 | MHC.OFFVIS ---
Intake Vital Signs 09/08/23 14:00 Height 5 ft 2.95 in Weight 179 lb 7.3 oz BMI 31.8 BP 136/66 Blood Pressure Location Lt brachial Position Sitting Pulse 71 Pulse Source Pulse Oximeter Intake Visit Reasons: Osteoporosis-confirmed Intake Note: Former Dr. Ruelas patient last seen on 01/05/23. Patient presents today to follow up on Osteoporosis with Dr. Garner. Patient reports she is on Eliquis, she states she is unsure the dose. Bi Technical Lead Required: No Accompanied by: Self / Same As Patient Allergies oxycodone [From Percocet] Allergy (Mild, Verified 09/08/23 14:02) NAUSEA,HIVES,THROWING UP/ codeine [Codeine] Adverse Reaction (Mild, Verified 09/08/23 14:02) Constipation dairy protein Allergy (Severe, Uncoded 09/08/23 14:02) Diarrhea dairy,eggs, wheat,nuts,mold Allergy (Severe, Uncoded 09/08/23 14:02) Diarrhea HPI HPI Comments History of Present Illness Details 68 YO Female with PMHx HTN, HLD Osteoporosis who is seen in F/U for Osteoporosis and NTMNG. She also has osteochdonritis dessicans of the ankles. The patient last saw Dr. Ruelas on 01/05/2023 1) Osteoporosis: First diagnosed in 2013 based on screening DXA. Has severe GERD. She is currently being treated with Prolia, and has had 8 injections thus far. Prior 05/19/2019, 11/18/2019, 05/23/2020, 11/21/2020, 05/22/2021 and 12/26/2021 and 06/2022. Last injection was July 1023 No history of pathologic fracture or ONJ. Has 0 servings of dietary calcium per day as she is lactose intolerant. Takes Calcium supplement 1200 mg daily in divided doses. Takes 2000 IU of Vitamin D daily. Uses PPI daily. She does use frequent prednisone tapers approximately 4x per year for chronic sinusitis. She uses this Denies ever using anticoagulant or antiepileptic medication. Not received steroids in some time She does ride the stationary bike, and walk 6000 steps per day for exercise. Fracture history: Fractures as a child that were traumatic, but never had a fragility fracture. Height loss: Lost 1/2 inch of height since 2013. 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 Menses was always regular. , she did not breastfeed. Had a hysterectomy at the age of 43. She had unilateral oophorectomy, with 1 ovary remaining. Had symptoms of menopause approximately 10 years ago in her early 50's. She was placed on HRT with estrogen patches approximately 5 years ago, but she stopped using these after 1 year. History of Kidney stones: Has no history of kidney stones. No kidney stones in the family. Family history of Osteoporosis or hip fracture. Grandmother with Osteoporosis. No other family history of Osteoporosis or hip fracture. UTD on dental cleanings and sees dentist every 6 months. No planned upcoming dental work or extractions. DXA dated: 12/10/2020 L1-L4: T-1.9, increase of 12.2% since prior B/L Total Hip: T -1.6 RFN T-2.1, increase 6% from prior LFN T-2.0, increase of 2.8% from prior 2) NTMNG: On her initial visit with ma I palpated a thyroid nodule. Thyroid US revealed 2 subcentimeter R sided thyroid nodules. The R mid pole nodule was hypoechoic with irregular margins. She does mention a family history of thyroid cancer in her niece. We completed FNA biopsy of the R mid 1.0 cm thyroid nodule 02/24/19 with cytology [place] Category IV Suspicious for Follicular Neoplasm. She subsequently underwent a R lobe hemithyroidectomy with official pathology revealing a benign adenomatoid nodule with background follicular hyperplasia. She had postoperative calcium and albumin levels assessed which were WNL. She remains off any thyroid hormone supplementation. She has no history of head or neck radiation. She has a family history of thyroid cancer in her niece. She did develop an enlarged lymph node in her L neck. She was referred to Heme-Onc for this, but declined and instead saw ENT. She underwent FNA biopsy at an [facility] [place] with inconclusive results per her report. She then did F/U with Heme-Onc at [facility] and this has been managed by Dr. Mckay. Labs: Laboratory Tests 12/30/22 12/30/22 12/30/22 07:33 07:33 07:33 25-OH Vitamin D To joe 53.1 TSH 2.59 Free T4 0.97 PTH Intact 77 Calcium (PTH Intac t) 9.5 [facility] Medical History (Updated 09/08/23 @ 14:04 by CHRISTELLE Mendoza) On beta kendal at home Atrial fibrillation Vitamin B 12 deficiency Multinodular thyroid Osteoporosis Vitamin D deficiency Lymphadenopathy of head and neck Neck pain Normal colonoscopy History of mammogram Asthma Hyperlipidemia GERD (gastroesophageal reflux disease) Arrhythmia Surgical History History of surgery History of lumpectomy of both breasts Hx of cholecystectomy History of esophagogastroduodenoscopy (EGD) H/O colonoscopy History of thyroidectomy S/P foot surgery, right History of rotator cuff surgery Carpal tunnel syndrome H/O arthroscopy of right knee History of breast biopsy History of hysterectomy Family History Father CAD (coronary artery disease) CVD (cardiovascular disease) Mother No problems noted. Brother Cancer Sister Liver cancer CVD (cardiovascular disease) Other Mental health disorder Social History Housing: House Alcohol intake: current Alcohol intake frequency: holidays/special occasions only Patient Tobacco Use Status: Former Tobacco user Quit Date: 14 YRS AGO Tobacco use type: Cigarette Cigarettes Per Day: 5 Years Smoked: 35 e-Cigarette/Vaping Use: Never Used Current occupational status: retired Cognitive needs: No Hearing needs: No Vision needs: Yes Physical Exam Vital Signs: Last Vital Signs Pulse 71 09/08/23 14:00 BP 136/66 09/08/23 14:00 BMI result Body Mass Index 31.8 Const Other: Healed scar status post right low lobectomy. Left lobe was without the presence of palpable nodules Assessment & Plan Assessment & Plan (1) Osteoporosis: Comment: PROLIA INJECTIONS WORKING--OSTEOPENIA NOW Code(s): M81.0 - Age-related osteoporosis without current pathological fracture Qualifiers: Osteoporosis type: unspecified Presence of current pathological fracture: unspecified Qualified Code(s): M81.0 - Age-related osteoporosis without current pathological fracture Plan: This 68-year-old white female with a history of osteoporosis in the setting of chronic glucocorticoid use. Secondary workup was negative. Patient received 4 years of Prolia injections. She does has severe GERD. Recent DEXA showed stability in the osteopenic range for hip and spine but osteoporotic range the distal forearm. Plan is discussed with patient different options including transitioning from Prolia to Reclast in 01/2024 vs remaining on Prolia for another year or 2 and then transitioning. We decided most likely a transitioning to Reclast. Will check basic metabolic panel prior to next appointment. Continue calcium and vitamin-D supplementation. (2) Multinodular thyroid: Comment: Status post partial thyroidectomy 2019 Code(s): E04.2 - Nontoxic multinodular goiter Plan: Status post right lobectomy left lobe does not show the presence of palpable or nodules on ultrasound. No need for any further workup or follow-up Orders: Orders Basic Metabolic Panel 4 Months M81.0 - Age-related osteoporosis without current pathological fracture Calcium 4 Months M81.0 - Age-related osteoporosis without current pathological fracture Albumin Level 4 Months M81.0 - Age-related osteoporosis without current pathological fracture Coding Level of Care Code Est Pt Level 3 (19676) Diagnoses Osteoporosis, unspecified osteoporosis type, unspecified pathological fracture presence M81.0 Osteoporosis type: unspecified Presence of current pathological fracture: unspecified Multinodular thyroid E04.2
[2023-09-08 14:00] VITALS: BP 136/66; PULSE 71; BMI 31.8
== END 2023-09-08 15:00 | disposition home or self-care (01) ==
PROVIDERS: PCP Physician Assistant; Visit Provider Internal Medicine Endocrinology, Diabetes & Metabolism
DX: M81.0 Age-related osteoporosis without current pathological fracture (principal); E04.2 Nontoxic multinodular goiter
CPT/HCPCS: 99213

== ENCOUNTER → 2023-09-08 13:38 | Outpatient (BNVA) | payer MEDICARE, SELFPAY | PROVIDERS: PCP Physician Assistant; Visit Provider Internal Medicine Endocrinology, Diabetes & Metabolism | DX: M81.0 Age-related osteoporosis without current pathological fracture (principal); E04.2 Nontoxic multinodular goiter | CPT/HCPCS: 99212 ==

== ENCOUNTER 2023-09-09 10:12 | Outpatient (REF) | payer MEDICARE, SELFPAY ==
[2023-09-09 16:49] LABS: Urine Cytology See Pathology rpt
== END 2023-09-09 10:13 | disposition home or self-care (01) ==
LOC: HO.LAB 10:12
PROVIDERS: PCP Physician Assistant; Visit Provider Urology
DX: D41.4 Neoplasm of uncertain behavior of bladder (principal); R35.0 Frequency of micturition; N39.0 Urinary tract infection, site not specified
CPT/HCPCS: 52000; 81003; 87086; 88112; 99212

== ENCOUNTER 2023-09-09 10:12 | Outpatient (AMB) | payer MEDICARE, SELFPAY ==
--- NOTE | 2023-09-09 10:33 | A.OFFVIS_ITS ---
Intake Intake Visit Reasons: 6m/cysto Intake Note: Patient presents today for a CYSTOSCOPY Procedure: Meds: None Allergies to Antibiotic: No Known Allergies Blood Thinner: None Urinalysis test cleared for Cysto Disposable Uro-G Cystoscope Cannula: Lot: [id number] Exp: 01/25/2025 Epic Radiant Analyst Required: No Accompanied by: Self / Same As Patient Allergies oxycodone [From Percocet] Allergy (Mild, Verified 09/09/23 10:34) NAUSEA,HIVES,THROWING UP/ codeine [Codeine] Adverse Reaction (Mild, Verified 09/09/23 10:34) Constipation dairy protein Allergy (Severe, Uncoded 09/09/23 10:34) Diarrhea dairy,eggs, wheat,nuts,mold Allergy (Severe, Uncoded 09/09/23 10:34) Diarrhea Medication List - Last Reconciled 09/09/23 by Erickson Dunn MD albuterol sulfate 90 mcg/actuation (ProAir HFA) 2 inhalations inhalation QID PRN azelastine 137 mcg (0.137 mL) intranasal DAILY 30 days calcium carbonate-vitamin D3 600 mg-10 mcg (400 unit) (Calcium with Vitamin D) 1 tab PO DAILY celecoxib 200 mg PO DAILY cyanocobalamin (vitamin B-12) 1,000 mcg IM .twice a month denosumab 60 mg subcut [id number] flaxseed oil 1,000 mg PO DAILY flecainide 50 mg PO BID gabapentin 200 mg PO BEDTIME PRN lansoprazole 30 mg PO DAILY metoprolol succinate ER 12.5 mg PO DAILY montelukast 10 mg PO DAILY 90 days solifenacin (Vesicare) 10 mg PO DAILY syringe with needle (Easy Touch) Use to inject twice a month HPI HPI Comments History of Present Illness Details Clinton is a 68-year-old female who presents to the office for FU. 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 The entire lesion was removed as noted in the pathology report that the specimen included muscle. The patient states she is having increased urinary frequency that is bothersome. Discussed watch caffeine intake, discussed elevated BMI can impact LUTS, will trial vesicare 10 mg daily, will send surveillance urine c/s. Will continue to monitor with urine analysis and surveillance cystoscopy for up to 8 years. Plan: will trial vesicare 10 mg daily, will send surveillance urine c/s. urine for cytology Follow-up in 6 months one year for office cystoscopy, renal US prior. [facility] Medical History (Updated 09/09/23 @ 12:03 by Erickson Dunn MD) On beta kendal at home Atrial fibrillation Vitamin B 12 deficiency Multinodular thyroid Osteoporosis Vitamin D deficiency Lymphadenopathy of head and neck Neck pain Normal colonoscopy History of mammogram Asthma Hyperlipidemia GERD (gastroesophageal reflux disease) Arrhythmia Surgical History History of surgery History of lumpectomy of both breasts Hx of cholecystectomy History of esophagogastroduodenoscopy (EGD) H/O colonoscopy History of thyroidectomy S/P foot surgery, right History of rotator cuff surgery Carpal tunnel syndrome H/O arthroscopy of right knee History of breast biopsy History of hysterectomy Family History Father CAD (coronary artery disease) CVD (cardiovascular disease) Mother No problems noted. Brother Cancer Sister Liver cancer CVD (cardiovascular disease) Other Mental health disorder Social History Housing: House Alcohol intake: current Alcohol intake frequency: holidays/special occasions only Patient Tobacco Use Status: Former Tobacco user Quit Date: 14 YRS AGO Tobacco use type: Cigarette Cigarettes Per Day: 5 Years Smoked: 35 e-Cigarette/Vaping Use: Never Used Current occupational status: retired Cognitive needs: No Hearing needs: No Vision needs: Yes Office Procedures Cystoscopy Consent Discussed risk and benefit or proposed procedure with the patient. Information consent for procedure given to the patient. Discussed technical aspects, risks, benefits and alternatives in full. Addressed all of the patient's questions and concerns regarding the procedure. The patient demonstrated knowledge and understanding. They wish to proceed with this procedure. Preparation The patient was prepped in the usual manner. A supervising nurse was present and in the room. Genitalia was prepped with betadine solution in a sterile manner. Lidocaine Jelly 2% was placed into the urethra and 16Fr flexible Olympus cystoscope was inserted into the meatus after adequate lubrication. Procedure Time out per protocol performed. Bladder Inspection Bladder Inspection: The bladder was inspected in its entirety with utilization retroflexion displaying: Tumor(s): none visualized Trabeculation: N/A Mucosal Erthema: mild Orifices: normal shape and position Urethra: normal Cystoscopy findings: no suspicious bladder lesions visualized [id number] DISPOSABLE SCOPE URO-G FLEXIBLE SCOPE Procedure code (CPT) selection complete Office Meds lidocaine HCl 2 % mucosal jelly in applicator Performing Provider: Erickson Dunn MD Performing Location: [facility] Administered by: Barbra Cummings RN on 09/09/23 10:46 Dose Route Admin Location Dispensed Lot Number Expiration Date NDC Framework Developer 10 mL intra-urethral 20 mL naproxen 500 mg tablet Performing Provider: Erickosn Dunn MD Performing Location: [facility] Administered by: Barbra Cummings RN on 09/09/23 10:46 Dose Route Admin Location Dispensed Lot Number Expiration Date NDC Framework Developer 500 mg PO 1 tab ciprofloxacin HCl 500 mg tablet Performing Provider: Erickson Dunn MD Performing Location: [facility] Administered by: Barbra Cummings RN on 09/09/23 10:46 Dose Route Admin Location Dispensed Lot Number Expiration Date NDC Framework Developer 500 mg PO 1 tab Results AMB Urinalysis, Automated UA Leukoctes 15 Dayday/uL Last Edit by CHRISTELLE Davidson on 09/09/23 10:37 UA Nitrite Negative Last Edit by CHRISTELLE Davidson on 09/09/23 10:37 UA Urobilinogen 0.2 mg/dL Last Edit by CHRISTELLE Davidson on 09/09/23 10:3 7 UA Protein 0 mg/dL Last Edit by CHRISTELLE Davidson on 09/09/23 10:37 UA pH 6.0 Last Edit by NICOLÁS DavidsonA on 09/09/23 10:37 UA Blood 0 Dago/uL Last Edit by Shaun Kan RMA on 09/09/23 10:37 UA Specific [place] 1.020 Last Edit by Shaun Kan RMA on 09/09/23 10: 37 UA Ketone Negative Last Edit by Shaun Kan RMA on 09/09/23 10:37 UA Bilirubin 0 mg/dL Last Edit by Shaun Kan RMA on 09/09/23 10:37 UA Glucose 0 mg/dL Last Edit by NICOLÁS DavidsonA on 09/09/23 10:37 Results Reviewed Results Reviewed: Laboratory Last Values Urine pH (Auto) 6.0 09/09/23 10:35 Specific [place] (Auto) 1.020 09/09/23 10:35 Urine Protein (Auto) 0 mg/dL 09/09/23 10:35 Glucose (UA)(Auto) 0 mg/dL 09/09/23 10:35 Urine Ketones (Auto) Negative 09/09/23 10:35 Urine Blood (Auto) 0 Dago/uL 09/09/23 10:35 Urine Nitrite (Auto) Negative 09/09/23 10:35 Urine Bilirubin (Auto) 0 mg/dL 09/09/23 10:35 Urine Urobilinogen (Auto) 0.2 mg/dL 09/09/23 10:35 Leukocyte Esterase (Auto) 15 Dayday/uL 09/09/23 10:35 Assessment & Plan Assessment & Plan (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 urine for cytology Follow-up in 6 months one year for office cystoscopy, renal US prior. Orders: Orders US renal BI 10 Months R35.0 - Frequency of micturition AMB Urinalysis Automated Today Z13.9 - Encounter for screening, unspecified AMB Cystoscopy Today N32.9 - Bladder disorder, unspecified Medications: New solifenacin (Vesicare) 10 mg PO DAILY 30 tabs 2RF Patient Instructions: The patient had an opportunity to ask questions regarding treatment plan. All questions were answered. Imaging, Laboratory studies and physical exam results were discussed and reviewed in detail. No major barriers to understanding were identified. The patient expressed understanding and agreement with the above treatment plan. The patient is aware they should contact our office by phone for worsening of their current condition or the appearance of new symptoms. Compliance is encouraged with any medications and followup testing that is ordered. It is a privilege to be allowed the opportunity to participate in the urologic care of your patient. If you have any questions or concerns regarding treatment for the above conditions please do not hesitate to contact me. The office telephone contact is [phone]. This note is constructed in part using voice recognition software. While every effort has been made to ensure accuracy gamer errors may have been included. Yours sincerely, Erickson Dunn MD Coding Level of Care Code Est Pt Level 4 (55117) Diagnoses Inverted papilloma of bladder D41.4 Urinary frequency R35.0 CPT Codes Cystoscopy - CPT: 74024-Cbalhxansy ([id number])
== END 2023-09-09 12:20 | disposition home or self-care (01) ==
PROVIDERS: PCP Physician Assistant; Visit Provider Urology
DX: R35.0 Frequency of micturition (principal); D41.4 Neoplasm of uncertain behavior of bladder; N32.9 Bladder disorder, unspecified; Z13.9 Encounter for screening, unspecified
CPT/HCPCS: 52000; 99214

== ENCOUNTER 2023-12-28 07:39 | Outpatient (REF) | payer MEDICARE, SELFPAY ==
[2023-12-28 10:52] LABS: Albumin Level 4.1 g/dL (3.5-5.0); Anion Gap 11 (12-20); Blood Urea Nitrogen 22 mg/dL (9-16); Calcium 9.7 mg/dL (8.4-10.2); Carbon Dioxide 28 mmol/L (22-29); Chloride 106 mmol/L (96-108); Estimated Glomerular Filt Rate > 60; Glucose Random 90 mg/dL (60-115); Potassium 4.3 mmol/L (3.3-5.1); Sodium 141 mmol/L (135-145)
== END 2023-12-28 07:40 | disposition home or self-care (01) ==
LOC: HO.HMGCLDS 07:39
PROVIDERS: PCP Physician Assistant; Visit Provider Internal Medicine Endocrinology, Diabetes & Metabolism
DX: M81.0 Age-related osteoporosis without current pathological fracture (principal)
CPT/HCPCS: 36415; 80048; 82040

== ENCOUNTER 2023-12-30 13:41 | Outpatient (AMB) | payer MEDICARE, SELFPAY ==
[2023-12-30 13:46] VITALS: BP 122/76; PULSE 65; BMI 33.3
--- NOTE | 2023-12-30 13:46 | A.OFFVIS_ITS ---
Intake Vital Signs 12/30/23 13:46 Height 5 ft 2 in Weight 182 lb 5.156 oz BMI 33.3 BP 122/76 Blood Pressure Location Lt brachial Position Sitting Pulse 65 Pulse Source Pulse Oximeter Intake Visit Reasons: Osteoporosis-confirmed Intake Note: Patient present today for Osteoporosis follow up visit. 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 She also has osteochdonritis dessicans of the ankles. The patient last saw Dr. Ruelas on 01/05/2023 1) Osteoporosis: First diagnosed in 2013 based on screening DXA. Has severe GERD. She is currently being treated with Prolia, and has had 8 injections thus far. Prior 05/19/2019, 11/18/2019, 05/23/2020, 11/21/2020, 05/22/2021 and 12/26/2021 and 06/2022. Last injection was July 1023 No history of pathologic fracture or ONJ. Has 0 servings of dietary calcium per day as she is lactose intolerant. Takes Calcium supplement 1200 mg daily in divided doses. Takes 2000 IU of Vitamin D daily. Uses PPI daily. She does use frequent prednisone tapers approximately 4x per year for chronic sinusitis. She uses this Denies ever using anticoagulant or antiepileptic medication. Not received steroids in some time She does ride the stationary bike, and walk 6000 steps per day for exercise. Fracture history: Fractures as a child that were traumatic, but never had a fragility fracture. Height loss: Lost 1/2 inch of height since 2013. 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 Menses was always regular. , she did not breastfeed. Had a hysterectomy at the age of 43. She had unilateral oophorectomy, with 1 ovary remaining. Had symptoms of menopause approximately 10 years ago in her early 50's. She was placed on HRT with estrogen patches approximately 5 years ago, but she stopped using these after 1 year. History of Kidney stones: Has no history of kidney stones. No kidney stones in the family. Family history of Osteoporosis or hip fracture. Grandmother with Osteoporosis. No other family history of Osteoporosis or hip fracture. UTD on dental cleanings and sees dentist every 6 months. No planned upcoming dental work or extractions. DXA dated: 12/10/2020 L1-L4: T-1.9, increase of 12.2% since prior B/L Total Hip: T -1.6 RFN T-2.1, increase 6% from prior LFN T-2.0, increase of 2.8% from prior 2) NTMNG: On her initial visit with me I palpated a thyroid nodule. Thyroid US revealed 2 subcentimeter R sided thyroid nodules. The R mid pole nodule was hypoechoic with irregular margins. She does mention a family history of thyroid cancer in her niece. We completed FNA biopsy of the R mid 1.0 cm thyroid nodule 02/24/19 with cytology [place] Category IV Suspicious for Follicular Neoplasm. She subsequently underwent a R lobe hemithyroidectomy with official pathology revealing a benign adenomatoid nodule with background follicular hyperplasia. She had postoperative calcium and albumin levels assessed which were WNL. She remains off any thyroid hormone supplementation. She has no history of head or neck radiation. She has a family history of thyroid cancer in her niece. She did develop an enlarged lymph node in her L neck. She was referred to Heme- Onc for this, but declined and instead saw ENT. She underwent FNA biopsy at an [facility] with inconclusive results per her report. She then did F/U with Heme-Onc at [facility] [place] [facility] and this has been managed by Dr. Mckay. Labs: Laboratory Tests 12/30/22 12/30/22 12/30/22 07:33 07:33 07:33 25-OH Vitamin D To joe 53.1 TSH 2.59 Free T4 0.97 PTH Intact 77 Calcium (PTH Intac t) 9.5 PFSH Medical History (Updated 09/09/23 @ 12:03 by Erickson Dunn MD) On beta kendal at home Atrial fibrillation Vitamin B 12 deficiency Multinodular thyroid Osteoporosis Vitamin D deficiency Lymphadenopathy of head and neck Neck pain Normal colonoscopy History of mammogram Asthma Hyperlipidemia GERD (gastroesophageal reflux disease) Arrhythmia Surgical History History of surgery History of lumpectomy of both breasts Hx of cholecystectomy History of esophagogastroduodenoscopy (EGD) H/O colonoscopy History of thyroidectomy S/P foot surgery, right History of rotator cuff surgery Carpal tunnel syndrome H/O arthroscopy of right knee History of breast biopsy History of hysterectomy Family History Father CAD (coronary artery disease) CVD (cardiovascular disease) Mother No problems noted. Brother Cancer Sister Liver cancer CVD (cardiovascular disease) Other Mental health disorder Social History Housing: House Alcohol intake: current Alcohol intake frequency: holidays/special occasions only Patient Tobacco Use Status: Former Tobacco user Quit Date: 14 YRS AGO Tobacco use type: Cigarette Cigarettes Per Day: 5 Years Smoked: 35 e-Cigarette/Vaping Use: Never Used Current occupational status: retired Cognitive needs: No Hearing needs: No Vision needs: Yes Physical Exam Vital Signs: Last Vital Signs Pulse 65 12/30/23 13:46 BP 122/76 12/30/23 13:46 BMI result Body Mass Index 33.3 Const Other: Healed scar status post right low lobectomy. Left lobe was without the presence of palpable nodules Assessment & Plan Assessment & Plan (1) Osteoporosis: Comment: PROLIA INJECTIONS WORKING--OSTEOPENIA NOW Code(s): M81.0 - Age-related osteoporosis without current pathological fracture Qualifiers: Osteoporosis type: unspecified Presence of current pathological fracture: unspecified Qualified Code(s): M81.0 - Age-related osteoporosis without current pathological fracture Plan: This 69-year-old white female with a history of osteoporosis in the setting of chronic glucocorticoid use. Secondary workup was negative. Patient received 4 years of Prolia injections. She does has severe GERD. Recent DEXA showed stability in the osteopenic range for hip and spine but osteoporotic range the distal forearm. Plan is discussed with patient different options including transitioning from Prolia to Reclast in 01/2024 vs remaining on Prolia for another year or 2 and then transitioning. We decided most likely a transitioning to Reclast. . Continue calcium and vitamin-D supplementation. Metabolic panel 2 weeks for now prior to Reclast infusion Orders: Orders Basic Metabolic Panel 2 Weeks M81.0 - Age-related osteoporosis without current pathological fracture Coding Level of Care Code Est Pt Level 3 (27706) Diagnoses Osteoporosis, unspecified osteoporosis type, unspecified pathological fracture presence M81.0 Osteoporosis type: unspecified Presence of current pathological fracture: unspecified
== END 2023-12-30 14:29 | disposition home or self-care (01) ==
PROVIDERS: PCP Physician Assistant; Visit Provider Internal Medicine Endocrinology, Diabetes & Metabolism
DX: M81.0 Age-related osteoporosis without current pathological fracture (principal)
CPT/HCPCS: 99213

== ENCOUNTER → 2023-12-30 13:41 | Outpatient (BNVA) | payer MEDICARE, SELFPAY | PROVIDERS: PCP Physician Assistant; Visit Provider Internal Medicine Endocrinology, Diabetes & Metabolism | DX: M81.0 Age-related osteoporosis without current pathological fracture (principal) | CPT/HCPCS: 99212 ==

== ENCOUNTER 2024-01-20 07:13 | Outpatient (REF) | payer MEDICARE, SELFPAY ==
[2024-01-20 10:43] LABS: Hematocrit 39.8 % (37.0-47.0); Hemoglobin 12.5 g/dl (12.0-16.0); Mean Corpuscular HGB Conc 31.4 g/dl (31.0-35.0); Mean Corpuscular Hemoglobin 27.5 pg (27.0-33.0); Mean Corpuscular Volume 87.7 fL (80.0-98.0); Mean Platelet Volume 9.8 fL (9.4-12.3); Platelet Count 295 X10*3/uL (160-400); Red Blood Count 4.54 X10*6/uL (4.20-5.50); Red Cell Distribution Width 13.3 % (11.0-16.0); White Blood Count 7.3 X10*3/uL (4.8-10.8)
[2024-01-20 11:13] LABS: Alanine Aminotransferase 23 U/L (0-31); Albumin Level 3.9 g/dL (3.5-5.0); Alkaline Phosphatase 70 U/L (39-117); Anion Gap 13 (12-20); Aspartate Amino Transferase 17 U/L (5-31); Bilirubin Total 0.2 mg/dL (0.0-1.0); Blood Urea Nitrogen 18 mg/dL (9-16); Calcium 10.2 mg/dL (8.4-10.2); Carbon Dioxide 28 mmol/L (22-29); Chloride 104 mmol/L (96-108); Cholesterol 211 mg/dL (<200); Estimated Glomerular Filt Rate > 60; Glucose Fasting 90 mg/dL (60-99); Glucose Random 89 mg/dL (60-115); HDL Cholesterol 70 mg/dL (>40); LDL Cholesterol Calculated 123 mg/dL (<100); Potassium 4.2 mmol/L (3.3-5.1); Sodium 141 mmol/L (135-145); Total Protein 6.9 g/dL (6.5-8.0); Triglycerides 90 mg/dL (<150)
[2024-01-20 11:23] LABS: Folate 7.3 ng/mL (> or = 4.0); Vitamin B12 806 pg/mL (200-900)
== END 2024-01-20 07:14 | disposition home or self-care (01) ==
LOC: HO.HMGCLDS 07:13
PROVIDERS: PCP Physician Assistant; Referring Provider Internal Medicine Endocrinology, Diabetes & Metabolism; Visit Provider Physician Assistant
DX: M81.0 Age-related osteoporosis without current pathological fracture (principal); E78.2 Mixed hyperlipidemia; E53.8 Deficiency of other specified B group vitamins; I48.0 Paroxysmal atrial fibrillation
CPT/HCPCS: 36415; 80048; 80053; 80061; 82607; 82746; 85027

== ENCOUNTER 2024-02-02 15:06 | Outpatient (AMB) | payer MEDICARE, SELFPAY ==
[2024-02-02 15:15] VITALS: BP 122/84; PULSE 66; O2SAT 97; BMI 33.3
--- NOTE | 2024-02-02 15:15 | A.OFFPC_ITS ---
Vital Signs 02/02/24 15:15 Height 5 ft 2 in Weight 182 lb 4 oz BMI 33.3 BP 122/84 Blood Pressure Location Lt brachial Position Sitting Pulse 66 Pulse Source Pulse Oximeter Pulse Oximetry (%) 97 Oxygen Delivery Method Room Air Intake Visit Reasons: pe Intake Note: Patient is here today for a physical. Fitness Consultant Required: No Accompanied by: Self / Same As Patient Allergies oxycodone [From Percocet] Allergy (Mild, Verified 02/02/24 15:37) NAUSEA,HIVES,THROWING UP/ codeine [Codeine] Adverse Reaction (Mild, Verified 02/02/24 15:37) Constipation dairy protein Allergy (Severe, Uncoded 02/02/24 15:37) Diarrhea dairy,eggs, wheat,nuts,mold Allergy (Severe, Uncoded 02/02/24 15:37) Diarrhea Medication List - Last Reconciled 02/03/24 by Louis Quijano PA-C albuterol sulfate 90 mcg/actuation (ProAir HFA) 2 inhalations inhalation QID PRN apixaban (Eliquis) 5 mg PO BID azelastine 137 mcg (0.137 mL) intranasal DAILY 30 days baclofen 5 mg PO BEDTIME 7 days benzonatate 200 mg PO TID 5 days calcium carbonate-vitamin D3 600 mg-10 mcg (400 unit) (Calcium with Vitamin D) 1 tab PO DAILY celecoxib 200 mg PO DAILY cyanocobalamin (vitamin B-12) 1,000 mcg IM .twice a month flaxseed oil 1,000 mg PO DAILY gabapentin 200 mg PO BEDTIME PRN lansoprazole 30 mg PO DAILY metoprolol succinate ER 25 mg PO DAILY montelukast 10 mg PO DAILY 90 days solifenacin (Vesicare) 10 mg PO DAILY 90 days syringe with needle (Easy Touch) Use to inject twice a month Tobacco use date assessed: 02/02/24 Fall risk assessment: No Falls in past year Last assessed Fall Risk: 02/02/24 Dental Screening Dental Screen Date: 02/02/24 Did you have a dental visit in the last 12 months?: Yes Did you have a dental problem in the last 6 months where you did not have access to dental care?: No Was dental information given to patient?: Patient has dentist HPI pe HPI Details Patient is 68-year-old female here today for an annual physical. 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 Concern--> she reports over the last 2 weeks having soreness and stiffness over her neck and trapezius area. She attributes this to recently getting a Prolia shot. She is interested in trying medication to help with relaxing her muscles. She is also concerned about her weight. She does report healthy lifestyle and physical activity though was not able to lose any weight. She is concerned she has a hormonal issue. She has not interested in any medication to help her lose weight. She is interested in checking her cortisol. .. 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 (DR Edmond) Continues on rate control with metoprolol. Has underwent a cardioversion which seems to have been successful. She is stopped flecainide. . She currently is not on any anticoagulation at this time. She will ask her power plant supervisor about anticoagulation. .. Hyperlipidemia: Continues to manage her cholesterol with lifestyle and dietary modifications. Lipid panel has much improved, she reports no change in her diet though since being taken off of flecainide her cholesterol has improved .. Osteoporosis: Currently taking Prolia on a every 6 months basis through Endocrine. .. Bladder lesion- had a recent history of gross hematuria to which she followed up with Urology and had a cystoscopy which did show biopsy consistent with a papilloma the bladder. This is benign and bleeding has subsided. Mammogram: Done at [facility] in December 2023, BI-RADS 2 Vaccines: Up-to-date with COVID vaccine, tetanus vaccine, pneumonia vaccine, Colon cancer screening: done in 2021- normal - repeat 10 years [facility] Medical History On beta kendal at home Atrial fibrillation Vitamin B 12 deficiency Multinodular thyroid Osteoporosis Vitamin D deficiency Lymphadenopathy of head and neck Neck pain Normal colonoscopy History of mammogram Asthma Hyperlipidemia GERD (gastroesophageal reflux disease) Arrhythmia Surgical History History of surgery History of lumpectomy of both breasts Hx of cholecystectomy History of esophagogastroduodenoscopy (EGD) H/O colonoscopy History of thyroidectomy S/P foot surgery, right History of rotator cuff surgery Carpal tunnel syndrome H/O arthroscopy of right knee History of breast biopsy History of hysterectomy Family History (Updated 02/02/24 @ 15:42 by Louis Quijano PA-C) Father CAD (coronary artery disease) CVD (cardiovascular disease) Mother No problems noted. Brother Cancer Sister Liver cancer CVD (cardiovascular disease) Breast cancer Other Mental health disorder Social History Housing: House Alcohol intake: current Alcohol intake frequency: holidays/special occasions only Patient Tobacco Use Status: Former Tobacco user Quit Date: 14 YRS AGO Tobacco use type: Cigarette Cigarettes Per Day: 5 Years Smoked: 35 e-Cigarette/Vaping Use: Never Used service: No Current occupational status: retired Cognitive needs: No Hearing needs: No Vision needs: Yes Questionnaire PHQ-9 Over the last 2 weeks, how often have you been bothered by any of the following problems? 1. Little interest or pleasure in doing things: not at all 2. Feeling down, depressed, or hopeless: not at all 3. Trouble falling or staying asleep, or sleeping too much: not at all 4. Feeling tired or having little energy: not at all 5. Poor appetite or overeating: not at all 6. Feeling bad about yourself - or that you are a failure or have let yourself or your family down: not at all 7. Trouble concentrating on things, such as reading the newspaper or watching television: not at all 8. Moving or speaking so slowly that other people could have noticed. Or the opposite - being so fidgety or restless that you have been moving around a lot more than usual: not at all 9. Thoughts that you would be better off or of hurting yourself in some way: not at all Total score: 0 Depression Screening Interpretation: Negative Depression Screening Done: Yes 13884 - PHQ-9 Billing: Yes Source: Developed by Drs. Javier Bernal, Neisha Mejia, Gaurav Gardner and colleagues, with an educational samantha from [employer]. Thrive Questionnaire Date Thrive assessed: 02/02/24 I am a: Patient What is your living situation today?: I have a steady place to live Within the past 12 months, did the food you bought not last and you didn't have the money to get more?: Never true Within the past 12 months, did you worry whether your food would run out before you got money to buy more?: Never true Do you have trouble paying for medicines?: No Do you have trouble getting transportation to medical appointments?: No Do you have trouble paying your heating and electricity bill?: No Do you have trouble taking care of your child, family member or friend?: No Do you have trouble with day-to-day activities such as bathing, preparing meals, shopping, managing finances, etc.?: No Are you currently unemployed and looking for a job?: No Are you interested in more education?: No Please select the resources that you would like help with: None Currently or been in a relationship where the following occur: no concerns reported THRIVE Score: 0 AUDIT C Alcohol Use Questionnaire (AUDIT-C) 1. How often do you have a drink containing alcohol?: Never 3. How often do you have six or more drinks on one occasion?: Never Total Score: 0 ELIUD-7 AMB Questionnaire ELIUD-7 Date ELIUD - 7 assessed: 02/02/24 Feeling nervous, anxious, or on edge: 0 = Not at all Not being able to stop or control worryin = Not at all Worrying too much about different things: 0 = Not at all Trouble relaxin = Not at all Being so restless that it is hard to sit still: 0 = Not at all Becoming easily annoyed or irritable: 0 = Not at all Feeling afraid as if something awful might happen: 0 = Not at all Total ELIUD-7 score (0-4 normal; 5-9 mild; 10-14 moderate; 15-21 severe): 0 Source: Developed by Drs. Javier Bernal, Neisha Mejia, Gaurav Gardner and colleagues, with an educational samantha from [employer]. ELIUD-7 Assessment Billing ELIUD-7 Assessment Tool: ELIUD-7 Assessment 81370 Review of Systems Const Denies excessive sweating, Denies fatigue and Denies headache(s) Eyes Denies loss of vision ENT Denies vertigo, Denies dizziness, Denies headache(s) and Denies sore throat Card Denies chest pain, Denies leg edema and Denies lightheadedness Resp Denies cough, Denies hemoptysis and Denies wheezing GI Denies abdominal pain, Denies melena, Denies constipation, Denies diarrhea and Denies vomiting Denies urinary frequency, Denies dysuria and Denies urinary urgency Musc Denies arthralgias, Denies joint swelling, Denies numbness and Denies tingling Skin/Breast Denies rash and Denies skin ulcer Neuro Denies Abnormal speech present, Denies behavioral changes, Denies vertigo, Denies dizziness, Denies headache(s), Denies loss of vision, Denies memory loss, Denies numbness and Denies tingling Psych Denies anxiety, Denies behavioral changes, Denies depression, Denies memory loss and Denies panic attacks Endo Denies excessive sweating, Denies fatigue, Denies flushing, Denies polydipsia and Denies polyuria Luis Enrique/Lymph Denies easy bleeding and Denies easy bruising Aller/Immun Denies wheezing Physical exam (Primary Care) Vital Signs: Last Vital Signs Pulse 66 02/02/24 15:15 BP 122/84 02/02/24 15:15 Pulse Ox 97 02/02/24 15:15 Oxygen Delivery Method Room Air 02/02/24 15:15 BMI result Body Mass Index 33.3 BMI Assessment/Plan discussion: High BMI High, discussed plan: lifestyle, weight reduction, dietary and physical activity Tobacco/Smoking Status: Tobacco use Status Tobacco use date assessed 02/02/24 02/02/24 15:31 Patient Tobacco Use Status Former Tobacco user 02/02/24 15:17 Tobacco use type Cigarette 02/02/24 15:17 e-Cigarette/Vaping Use Never Used 02/02/24 15:17 PHQ-9: PHQ-9 Score PHQ-9: Total score 0 02/02/24 15:38 Depression Screening Interpretation: Negative Thrive Assessment: Date of Thrive Assessment Date Thrive assessed 02/02/24 02/02/24 15:31 Currently or been in a relationship where the following occur: no concerns reported Const General: healthy appearing, no acute distress, alert and awake Nutritional Appearance: well nourished Orientation/consciousness: oriented to person, oriented to place and oriented to time HENMT Head: Yes normocephalic Ears: TM's normal bilaterally General nose exam: Normal nasal mucous membranes and turbinates present Face and sinus: No sinus tenderness Mouth: Normal oral and palatal mucosa present and tongue normal Teeth and gingiva: dentition normal and gingiva normal Throat: Yes posterior oropharynx normal, Yes tonsils normal and Yes uvula midline Eyes Conjunctivae: conjunctivae normal Sclerae: sclerae normal Pupils: Equal, round and reactive pupils present EOM: EOMs intact bilaterally Direct Ophthalmoscopy: No no photophobia Neck Neck: Yes no lymphadenopathy and Yes no JVD Thyroid: Thyroid normal Carotids: no bruits Chest Chest palpation & inspection: no tenderness Resp Effort & Inspection: normal respiratory effort and not tachypneic Auscultation: no crackles, no rales, no rhonchi and no wheezes Cardio Jugular venous distension: no JVD Rate: regular rate Rhythm: regular rhythm Heart sounds: no murmurs and normal S1 and S2 Bruits: no carotid bruits Peripheral pulses: Peripheral pulses 2+ throughout GI Inspection: Yes normal to inspection, No abdominal wall ecchymosis and No visible herniation Palpation (GI): Soft to palpation, nontender, no hepatomegaly and no splenomegaly Auscultation: normal bowel sounds General: Yes no CVA tenderness Back/Spine/Pelvis Back: no CVA tenderness and No back tenderness Cervical Spine: cervical ROM normal Thoracic/Lumbar Spine: thoracic and lumbar spine normal to inspection, straight leg raise negative bilaterally, No thoraco-lumbar ROM limited and No lumbar spinal tenderness Skin General skin exam: no rashes or lesions noted and dry skin Lesions: no lesions Rashes: no rashes Wounds: no wounds Neuro General: oriented to person, oriented to place and oriented to time Cranial nerves: Yes Equal, round and reactive pupils present Cognition (Neuro): normal cognition Speech: No Abnormal speech present Gait exam (Neuro): Normal gait present Motor exam (neuro): no tremor noted Extrem Right upper extremity: full ROM Left upper extremity: full ROM Right lower extremity: full ROM; no edema Left lower extremity: full ROM; no edema Psych Appearance: grossly normal Mental Status: mental status grossly normal Speech and movement: Normal speech and movement present Affect: normal affect Attitude: cooperative Thought process: Normal thought process present Assessment and Plan Assessment & Plan (1) Annual physical exam: Code(s): Z00.00 - Encounter for general adult medical examination without abnormal findings (2) Atrial fibrillation: Code(s): I48.91 - Unspecified atrial fibrillation Qualifiers: Atrial fibrillation type: paroxysmal Qualified Code(s): I48.0 - Paroxysmal atrial fibrillation Plan: Patient followed by power plant supervisor at [facility]. She has underwent a cardiac ablation. Has been taken off of flecainide. Continues on metoprolol and Eliquis. No overt signs of bleeding. She otherwise has not had any further episodes of dizziness, presyncope or palpitations. 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 Gross hematuria has subsided (4) Osteoporosis: Comment: Started on Prolia 2018, f/u endo Code(s): M81.0 - Age-related osteoporosis without current pathological fracture Qualifiers: Osteoporosis type: age-related Presence of current pathological fracture: without current pathological fracture Qualified Code(s): M81.0 - Age- related osteoporosis without current pathological fracture Plan: Continues to follow Endocrinology and gets Prolia injections on a 6 month basis. She reports her most recent DEXA screening showed osteopenia. (5) Hyperlipidemia: Comment: intolerant to Simvastatin, body aches-- Code(s): E78.5 - Hyperlipidemia, unspecified Qualifiers: Hyperlipidemia type: mixed hyperlipidemia Qualified Code(s): E78.2 - Mixed hyperlipidemia Plan: Has not been able to tolerate statin therapy very well. Most recent lipid panel has improved. Will continue to follow lipid panel to assure appropriate total cholesterol and LDL. Goal LDL is to be below 130 (6) Obese: Code(s): E66.9 - Obesity, unspecified Qualifiers: Body mass index: BMI 32.0-32.9 Obesity classification: adult class 1 (BMI 30 - 34.9) Obesity type: due to excess calories Serious obesity comorbidity presence: without serious comorbidity Qualified Code(s): E66.09 - Other obesity due to excess calories; Z68.32 - Body mass index [BMI] 32.0-32.9, adult Plan: Patient does understand her BMI is over 30 and will work on being more physically active and adapting to better eating habits to reduce her weight. She unfortunately has foot issues that hinder her ability to be more physically active. She will try the pool to be more physically active. (7) Vitamin B 12 deficiency: Code(s): E53.8 - Deficiency of other specified B group vitamins Plan: Continues with B12 injections and is interested in stopping the injections in near future. Will continue them for the next 6 months and recheck B12 (8) Leg cramp: Code(s): R25.2 - Cramp and spasm Plan: Will check her magnesium. Advised on taking supplemental magnesium or trying tonic water before bed. (9) Cervical myelopathy: Code(s): G95.9 - Disease of spinal cord, unspecified Plan: Patient seems to be having a muscular issue in her neck secondary to getting her Prolia shot. Advised on resting in light stretches. Will supply patient with short-term script a muscle relaxer. Orders: Orders Magnesium 02/02/24 R25.2 - Cramp and spasm Complete Blood Count no Diff 6 Months I48.0 - Paroxysmal atrial fibrillation TSH reflex Free T4 6 Months E04.2 - Nontoxic multinodular goiter Lipid Panel 6 Months E78.2 - Mixed hyperlipidemia Cortisol Random 02/02/24 E66.09 - Other obesity due to excess calories, Z68.32 - Body mass index [BMI] 32.0-32.9, adult Comprehensive [place]. Panel Fast 6 Months E78.2 - Mixed hyperlipidemia Medications: New baclofen 5 mg PO BEDTIME 7 tabs 0RF 7 days G95.9 - Disease of spinal cord, unspecified Patient Instructions: Goal: Controlled AFib Barriers: Adherence to healthy eating habits and physical activity Coding Level of Care Code Est Pt Prev Care >65y(13379) Diagnoses Annual physical exam Z00.00 Paroxysmal atrial fibrillation I48.0 Atrial fibrillation type: paroxysmal Inverted papilloma of bladder D41.4 Age-related osteoporosis without current pathological fracture M81.0 Osteoporosis type: age-related Presence of current pathological fracture: without current pathological fracture Mixed hyperlipidemia E78.2 Hyperlipidemia type: mixed hyperlipidemia Class 1 obesity due to excess calories without serious comorbidity with body mass index (BMI) of 32.0 to 32.9 in adult E66.09; Z68.32 Body mass index: BMI 32.0-32.9 Obesity classification: adult class 1 (BMI 30 - 34.9) Obesity type: due to excess calories Serious obesity comorbidity presence: without serious comorbidity Vitamin B 12 deficiency E53.8 Leg cramp R25.2 Cervical myelopathy G95.9 Additional Codes ELIUD-7 Assessment Billing - ELIUD-7 Assessment Tool: ELIUD-7 Assessment [id number] ([id number])
== END 2024-02-02 16:14 | disposition home or self-care (01) ==
PROVIDERS: PCP Internal Medicine; Visit Provider Physician Assistant
DX: Z00.00 Encounter for general adult medical examination without abnormal findings (principal); I48.0 Paroxysmal atrial fibrillation; G95.9 Disease of spinal cord, unspecified; D41.4 Neoplasm of uncertain behavior of bladder; M81.0 Age-related osteoporosis without current pathological fracture; E78.2 Mixed hyperlipidemia; E66.09 Other obesity due to excess calories; Z68.32 Body mass index [BMI] 32.0-32.9, adult; E53.8 Deficiency of other specified B group vitamins; R25.2 Cramp and spasm
CPT/HCPCS: 99397

== ENCOUNTER 2024-02-15 08:46 | Outpatient (REF) | payer MEDICARE, SELFPAY ==
[2024-02-15 11:00] LABS: Magnesium 1.8 mg/dL (1.6-2.6)
[2024-02-15 11:55] LABS: Cortisol Random 12.9 ug/dL
== END 2024-02-15 08:47 | disposition home or self-care (01) ==
LOC: HO.HMGCLDS 08:46
PROVIDERS: PCP Physician Assistant; Visit Provider Physician Assistant
DX: R25.2 Cramp and spasm (principal); E66.09 Other obesity due to excess calories; Z68.32 Body mass index [BMI] 32.0-32.9, adult
CPT/HCPCS: 36415; 82533; 83735

== ENCOUNTER 2024-03-10 11:59 | Outpatient (REF) | payer MEDICARE, SELFPAY ==
[2024-03-10 13:29] LABS: Appearance Urine Cloudy; Color Urine Dark Yellow; Glucose Urine UA Negative (Negative); Leukocyte Esterase Urine Moderate (2+) (Negative); Nitrite Urine Negative (Negative); PH 5.5 (5.0-9.0); Specific Gravity - Urine >= 1.030 (1.005-1.025); UMIC TRIGGER UA YES; Urine Blood Negative (Negative); Urine Ketones Trace mg/dL (Negative); Urine Protein 100 (2+) mg/dL (Neg-Trace)
[2024-03-10 13:50] LABS: Bacteria Urine None Seen (None Seen); Granular Casts Urine Present; RBC Urine 0-2 /HPF (0-2); Squamous Epithelial Cell Urine 0-2 /HPF (0-2)
== END 2024-03-10 12:00 | disposition home or self-care (01) ==
LOC: HO.HMGCLDS 11:59
PROVIDERS: PCP Physician Assistant; Visit Provider Urology
DX: R35.0 Frequency of micturition (principal); R30.0 Dysuria
CPT/HCPCS: 81001; 87086

== ENCOUNTER 2024-03-28 06:45 | Outpatient (REF) | payer MEDICARE, SELFPAY ==
[2024-04-02 19:38] LABS: N-Telopeptide 17 (see note); NTXCreaRU 67 mg/dL (20-275)
== END 2024-03-28 06:46 | disposition home or self-care (01) ==
LOC: HO.HMGCLDS 06:45
PROVIDERS: Visit Provider Internal Medicine Endocrinology, Diabetes & Metabolism
DX: M81.0 Age-related osteoporosis without current pathological fracture (principal)
CPT/HCPCS: 82523

== ENCOUNTER 2024-04-20 13:56 | Outpatient (AMB) | payer MEDICARE, SELFPAY ==
--- NOTE | 2024-04-20 14:02 | MHC.OFFVIS ---
Vital Signs 04/20/24 14:03 Height 5 ft 2 in Weight 185 lb 6.54 oz BMI 33.9 BP 154/76 H Blood Pressure Location Lt brachial Position Sitting Pulse 83 Pulse Source Pulse Oximeter Intake Visit Reasons: Osteoporosis Intake Note: Patient present today for Osteoporosis follow up visit. Treatment Plant Operator Required: No Accompanied by: Self / Same As Patient Allergies oxycodone [From Percocet] Allergy (Mild, Verified 04/20/24 14:07) NAUSEA,HIVES,THROWING UP/ codeine [Codeine] Adverse Reaction (Mild, Verified 04/20/24 14:07) Constipation dairy protein Allergy (Severe, Uncoded 04/20/24 14:07) Diarrhea dairy,eggs, wheat,nuts,mold Allergy (Severe, Uncoded 04/20/24 14:07) Diarrhea Medication List - Last Reconciled 04/20/24 by Javier Garner MD albuterol sulfate 90 mcg/actuation (ProAir HFA) 2 inhalations inhalation QID PRN apixaban (Eliquis) 5 mg PO BID azelastine 137 mcg (0.137 mL) intranasal DAILY 30 days baclofen 5 mg PO BEDTIME 7 days benzonatate 200 mg PO TID 5 days calcium carbonate-vitamin D3 600 mg-10 mcg (400 unit) (Calcium with Vitamin D) 1 tab PO DAILY celecoxib 200 mg PO DAILY ciprofloxacin HCl 500 mg PO BID 7 days cyanocobalamin (vitamin B-12) 1,000 mcg IM .twice a month flaxseed oil 1,000 mg PO DAILY gabapentin 200 mg PO BEDTIME PRN lansoprazole 30 mg PO DAILY metoprolol succinate ER 25 mg PO DAILY montelukast 10 mg PO DAILY 90 days solifenacin (Vesicare) 10 mg PO DAILY 90 days syringe with needle (Easy Touch) Use to inject twice a month HPI Comments Details: 69 YO Female with PMHx HTN, HLD Osteoporosis who is seen in F/U for Osteoporosis and NTMNG. She also has osteochdonritis dessicans of the ankles. The patient last saw Dr. Ruelas on 01/05/2023 1) Osteoporosis: First diagnosed in 2013 based on screening DXA. Has severe GERD. She is currently being treated with Prolia, and has had 8 injections thus far. Prior 05/19/2019, 11/18/2019, 05/23/2020, 11/21/2020, 05/22/2021 and 12/26/2021 and 06/2022. Last injection was July 1023 No history of pathologic fracture or ONJ. Has 0 servings of dietary calcium per day as she is lactose intolerant. Takes Calcium supplement 1200 mg daily in divided doses. Takes 2000 IU of Vitamin D daily. Uses PPI daily. She does use frequent prednisone tapers approximately 4x per year for chronic sinusitis. She uses this Denies ever using anticoagulant or antiepileptic medication. Not received steroids in some time She does ride the stationary bike, and walk 6000 steps per day for exercise. Fracture history: Fractures as a child that were traumatic, but never had a fragility fracture. Height loss: Lost 1/2 inch of height since 2013. 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 Menses was always regular. , she did not breastfeed. Had a hysterectomy at the age of 43. She had unilateral oophorectomy, with 1 ovary remaining. Had symptoms of menopause approximately 10 years ago in her early 50's. She was placed on HRT with estrogen patches approximately 5 years ago, but she stopped using these after 1 year. History of Kidney stones: Has no history of kidney stones. No kidney stones in the family. Family history of Osteoporosis or hip fracture. Grandmother with Osteoporosis. No other family history of Osteoporosis or hip fracture. UTD on dental cleanings and sees dentist every 6 months. No planned upcoming dental work or extractions. DXA dated: 12/10/2020 L1-L4: T-1.9, increase of 12.2% since prior B/L Total Hip: T -1.6 RFN T-2.1, increase 6% from prior LFN T-2.0, increase of 2.8% from prior 2) NTMNG: On her initial visit with me I palpated a thyroid nodule. Thyroid US revealed 2 subcentimeter R sided thyroid nodules. The R mid pole nodule was hypoechoic with irregular margins. She does mention a family history of thyroid cancer in her niece. We completed FNA biopsy of the R mid 1.0 cm thyroid nodule 02/24/19 with cytology Margaret Category IV Suspicious for Follicular Neoplasm. She subsequently underwent a R lobe hemithyroidectomy with official pathology revealing a benign adenomatoid nodule with background follicular hyperplasia. She had postoperative calcium and albumin levels assessed which were WNL. She remains off any thyroid hormone supplementation. She has no history of head or neck radiation. She has a family history of thyroid cancer in her niece. She did develop an enlarged lymph node in her L neck. She was referred to Heme-Onc for this, but declined and instead saw ENT. [facility] with inconclusive results per her report. She then did F/U with [facility]c at [facility] and this has been managed by Dr. Mckay. Labs: Laboratory Tests 12/30/22 12/30/22 12/30/22 07:33 07:33 07:33 25-OH Vitamin D Total 53.1 TSH 2.59 Free T4 0.97 PTH Intact 77 Calcium (PTH Intact) 9.5 Taking calcium and vitamin D supplementation [facility] Medical History On beta kendal at home Atrial fibrillation Vitamin B 12 deficiency Multinodular thyroid Osteoporosis Vitamin D deficiency Lymphadenopathy of head and neck Neck pain Normal colonoscopy History of mammogram Asthma Hyperlipidemia GERD (gastroesophageal reflux disease) Arrhythmia Surgical History History of surgery History of lumpectomy of both breasts Hx of cholecystectomy History of esophagogastroduodenoscopy (EGD) H/O colonoscopy History of thyroidectomy S/P foot surgery, right History of rotator cuff surgery Carpal tunnel syndrome H/O arthroscopy of right knee History of breast biopsy History of hysterectomy Family History (Updated 02/02/24 @ 15:42 by Louis Quijano PA-C) Father CAD (coronary artery disease) CVD (cardiovascular disease) Mother No problems noted. Brother Cancer Sister Liver cancer CVD (cardiovascular disease) Breast cancer Other Mental health disorder Social History Housing: House Alcohol intake: current Alcohol intake frequency: holidays/special occasions only Patient Tobacco Use Status: Former Tobacco user Tobacco use type: Cigarette Cigarettes Per Day: 5 Years Smoked: 35 e-Cigarette/Vaping Use: Never Used service: No Current occupational status: retired Cognitive needs: No Hearing needs: No Vision needs: Yes Physical Exam Const Other: Healed scar status post right low lobectomy. Left lobe was without the presence of palpable nodules Assessment & Plan Assessment & Plan (1) Osteoporosis: Comment: PROLIA INJECTIONS WORKING--OSTEOPENIA NOW Code(s): M81.0 - Age-related osteoporosis without current pathological fracture Category: Medical Qualifiers: Osteoporosis type: unspecified Presence of current pathological fracture: unspecified Qualified Code(s): M81.0 - Age-related osteoporosis without current pathological fracture Plan: This 69-year-old white female with a history of osteoporosis in the setting of chronic glucocorticoid use. Secondary workup was negative. Patient received 4 years of Prolia injections. She does has severe GERD. Recent DEXA showed stability in the osteopenic range for hip and spine but osteoporotic range the distal forearm. Patient received a dose of Reclast in 01/2024. Urine NTX is suppressed Plan is continue calcium and vitamin-D. Will recheck urine NTX in 3 months (2) S/P thyroidectomy: Comment: Partial thyroidectomy for thyroid nodules Code(s): E89.0 - Postprocedural hypothyroidism Category: Surgical Plan: Will have patient follow up with Dr. Stokes expert in thyroid ultrasound starting a practice in April 2024 Orders: Orders Collagen Crosslinks NTX 3 Months M81.0 - Age-related osteoporosis without current pathological fracture Coding Level of Care Code Est Pt Level 3 (35600) Diagnoses Osteoporosis, unspecified osteoporosis type, unspecified pathological fracture presence M81.0 Osteoporosis type: unspecified Presence of current pathological fracture: unspecified S/P thyroidectomy E89.0
[2024-04-20 14:03] VITALS: BP 154/76; PULSE 83; BMI 33.9
== END 2024-04-20 14:40 | disposition home or self-care (01) ==
PROVIDERS: PCP Physician Assistant; Visit Provider Internal Medicine Endocrinology, Diabetes & Metabolism
DX: M81.0 Age-related osteoporosis without current pathological fracture (principal); E89.0 Postprocedural hypothyroidism
CPT/HCPCS: 99213

== ENCOUNTER → 2024-04-20 13:56 | Outpatient (BNVA) | payer MEDICARE, SELFPAY | PROVIDERS: PCP Physician Assistant; Visit Provider Internal Medicine Endocrinology, Diabetes & Metabolism | DX: M81.0 Age-related osteoporosis without current pathological fracture (principal); E89.0 Postprocedural hypothyroidism | CPT/HCPCS: 99212 ==

== ENCOUNTER → 2024-05-19 14:18 | Outpatient (RCR) | payer MEDICARE, SELFPAY ==
[2020-12-04 08:13] VITALS: BP 131/63; PULSE 64; RESP 14; TEMP 36.8; O2SAT 98; BMI 31.8
[2020-12-04 09:19] LABS: MANUAL DIFF FLAG NO
[2020-12-04 09:23] LABS: Basophils Absolute Auto 0.1 X10*3/uL (0.0-0.2); Basophils Percent Auto 0.5 % (0-2); Eosinophils Absolute Auto 0.2 X10*3/uL (0.0-0.4); Eosinophils Percent Auto 2.3 % (0-4); Hematocrit 41.5 % (37-47); Hemoglobin 13.4 g/dl (12.0-16.0); Imm Gran Abs Auto 0.04 X10*3/uL (0.00-0.03); Imm Gran Pct Auto 0.4 % (0.0-0.4); Lymphocytes Absolute Auto 1.2 X10*3/uL (1.2-4.9); Lymphocytes Percent Auto 12.4 % (20-40); Mean Corpuscular HGB Conc 32.3 g/dl (31.0-35.0); Mean Corpuscular Hemoglobin 28.3 pg (27.0-33.0); Mean Corpuscular Volume 87.7 fL (80-98); Mean Platelet Volume 9.5 fL (9.4-12.3); Monocytes Absolute Auto 0.6 X10*3/uL (0.1-1.2); Neutrophils Absolute Auto 7.6 X10*3/uL (2.0-8.3); Neutrophils Percent Auto 78.4 % (45-73); Platelet Count 258 X10*3/uL (160-400); Red Blood Count 4.73 X10*6/uL (4.20-5.50); Red Cell Distribution Width 13.7 % (11.0-16.0); White Blood Count 9.7 X10*3/uL (4.8-10.8)
--- NOTE | 2020-12-04 09:28 | PM.HEMONCCN ---
Subjective - Subjective Chief complaint: Swollen left lower neck gland Patient: new to practice Consult date: 12/04/20 Requesting Physician: Jessenia Tenorio. Primary Care Provider: Nataliia Hinojosa MD HPI - Consult Narrative Reason for consult: Left cervical lymphadenopathy Narrative: Clinton Thomas is a 65 year old female referred for evaluation of left cervical lymphadenopathy. She noticed a swollen lymph node in the left lower neck in summer when everything was shutdown during pandemic. At that time she also experienced drenching night sweats which eventually resolved. She states that the lymph node in her neck was much bigger than it is now and she sought medical attention, underwent an ultrasound in August 2020 which revealed suspicious lymph nodes. She had FNA/biopsy performed at [facility], she was referred there by ENT surgeon at [facility]. She also underwent endoscopic examination by ENT and was not found to have any suspicious findings. She was told not to worry about the biopsy. However the specimen was nondiagnostic and therefore Dr. Ruelas recommended that she follow-up with Medical Oncology. Patient no longer has constitutional symptoms and the neck node seems smaller by her on palpation. She denies any other palpable lymph nodes in the axilla or groin regions. She denies loss of appetite, weight loss or fatigue. She is otherwise in her usual state of health. She is up-to-date on screening mammography and colonoscopy. Review of Systems - Constitutional Reports no additional constitutional complaints, Denies fatigue, Denies fever(s), Denies night sweats, Denies poor appetite - Cardiovascular Reports no additional cardiovascular complaints - Respiratory Reports no additional respiratory complaints - Gastrointestinal Reports no additional gastrointestinal complaints Oncology Screenings - ECOG Performance Status ECOG Performance Status: 1 [facility] Medical History: Medical History (Last Updated 11/21/20 @ 09:18 by Kylah Chiu DO) Arrhythmia Asthma GERD (gastroesophageal reflux disease) History of mammogram Hyperlipidemia Lymphadenopathy of head and neck Multinodular thyroid Neck pain Normal colonoscopy Osteoporosis Vitamin D deficiency Family History: Family History (Last Reviewed 11/21/20 @ 09:15 by Kylah Chiu DO) Father CAD (coronary artery disease) CVD (cardiovascular disease) Mother No problems noted. Brother Cancer Sister Liver cancer Surgical History: Surgical History (Last Reviewed 11/21/20 @ 09:15 by Kylah Chiu DO) Carpal tunnel syndrome H/O arthroscopy of right knee H/O colonoscopy History of breast biopsy History of esophagogastroduodenoscopy (EGD) History of hysterectomy History of rotator cuff surgery History of thyroidectomy S/P foot surgery, right Social History: Social History (Last Updated 12/04/20 @ 08:20 by Fariha Chowdary) Alcohol History: Alcohol intake: current Alcohol History Details: Alcohol intake frequency: holiday/special occasion Tobacco History: Smoking Status: Former smoker Packs Per Day: 3 Smoking Quit Date: 2008 Substance Use History: Use of substances other than those prescribed or required for medical reasons: No Smoking status: Former smoker Home Medications and Allergies Home Medications Medication Instructions Recorded Confirmed Type albuterol sulfate 90 mcg/actuation 90 inh INHALATION DAILY 06/26/20 12/04/20 History aerosol inhaler azelastine 137 mcg (0.1 %) nasal 137 mcg INTRANASAL DAILY 06/26/20 12/04/20 History spray aerosol beclomethasone dipropionate 80 80 mcg INHALATION DAILY 06/26/20 12/04/20 History mcg/actuation HFA breath activated aerosol celecoxib 200 mg capsule 200 mg PO DAILY 06/26/20 12/04/20 History cyanocobalamin (vitamin B-12) 1,000 mcg IM QMONTH 06/26/20 12/04/20 History 1,000 mcg/mL injection solution flecainide 50 mg tablet 50 mg PO BID 06/26/20 12/04/20 History lansoprazole 30 mg capsule,delayed 30 mg PO DAILY 06/26/20 12/04/20 History release metoprolol succinate 25 mg 12.5 mg PO DAILY 06/26/20 12/04/20 History tablet,extended release 24 hr montelukast 10 mg tablet 10 mg PO DAILY 06/26/20 12/04/20 History cyclosporine [Restasis] 0.05 drp OPHTHALMIC (EYE) DAILY 12/04/20 12/04/20 History Allergies Allergy/AdvReac Type Severity Reaction Status Date / Time oxycodone [From Percocet] Allergy Mild NAUSEA,HIVES,THROWING Verified 11/21/20 09:14 UP/ acetaminophen [Percocet] Allergy Unknown unknown Verified 11/21/20 09:14 Penicillins Allergy blood work Verified 11/21/20 09:14 codeine [Codeine] AdvReac Mild NAUSEA Verified 11/21/20 09:14 Adhesive Bandage Allergy Mild RED/IRRITAT Uncoded 11/21/20 09:14 ED/RAW dairy protein Allergy Unknown unknown Uncoded 11/21/20 09:14 dairy,eggs, wheat,nuts,mold Allergy Unknown unknown Uncoded 11/21/20 09:14 Physical Exam Vital signs: Vital Signs Temp 98.3 F 12/04/20 08:13 Pulse 64 12/04/20 08:13 Resp 14 12/04/20 08:13 BP 131/63 12/04/20 08:13 Pulse Ox 98 12/04/20 08:13 Intake & Output 12/03/20 12/04/20 12/04/20 18:59 06:59 18:59 Other: Weight 77.6 kg Weight in Grams [id number] Weight 77.6 kg - Constitutional Present: no acute distress - Routine HEENT Exam Head: Present: normal inspection Eye: Present: EOMI - Routine Neck Exam Present: full ROM, lymphadenopathy - Routine Chest/Breast/Axilla Exam Chest wall: Absent: mass Axillae: Absent: lymphadenopathy - Routine Respiratory Exam Present: CTAB - Routine Cardiovascular Exam Cardiovascular: Present: RRR, S1, S2 - Routine Abdominal Exam Present: soft. Absent: organomegaly - Routine Extremities Exam Absent: pedal edema Hem/Onc Consult Result - Labs CBC & Chem 7: 12/04/20 09:09 Labs: Short CBC 12/04/20 Range/Units 09:09 WBC 9.7 (4.8-10.8) X10*3/uL Hgb 13.4 (12.0-16.0) g/dl Hct 41.5 (37-47) % Plt Count 258 (160-400) X10*3/uL Assessment and Plan (1) Lymphadenopathy of head and neck Problem details: L submandibular adenopathy Status: Chronic 1. This is a 65-year-old woman with left neck lymphadenopathy noted in August 2020. She had a FNA performed on 10/05/2020 at [facility] which was read as nondiagnostic, no lymphoid material identified. I reviewed ultrasound with radiologist and this lymph node definitely looks suspicious for malignancy on imaging. Fortunately the size has gone down and patient's initial symptoms of drenching night sweats have resolved. Blood work today shows normal CBC and LDH. I discussed the possibility of indolent lymphoma with the patient. Metastatic carcinoma from another site is also possible. She has had ENT evaluation at [facility] and they have told her there was no suspicion for head and neck cancers. She will need either core biopsy or excision biopsy. I have scheduled her for ultrasound-guided core biopsy in the upcoming days. I have asked her to stop taking Celebrex 5 days before procedure. 2. Elevated PTT with normal PT/INR. Patient does not give any history of bleeding with surgical procedures in the past and there is no family history of Von Willebrand's disease. Only new medication is biotin which can interfere with certain lab tests but PTT does not appear to be 1 of them. I am sending repeat PTT with mixing study to [facility]. I thank you very much for this referral, further recommendations to follow.
[2020-12-04 09:34] LABS: Prothrombin Time 11.9 SEC (10.8-13.0)
[2020-12-04 09:37] LABS: Partial Thromboplastin Time 46.6 SEC (24.1-38.0)
[2020-12-04 09:46] LABS: Lactate Dehydrogenase 178 U/L (122-220)
--- NOTE | 2020-12-04 11:03 | MHC.HEMONCMA ---
Patient came in for a consult on lymphadenopathy/possible cancer. Patient had a biopsy done at [facility] which was inconclusive so Dr Mckay ordered another biopsy to be done. Clinical summary was reviewed and udpated. Patient had labs and will return in 1 month for a follow up.
--- NOTE | 2020-12-04 16:38 | MHC.HEMONC ---
pt called per request of Dr Mckay to say that coag studies were wnl per [facility].
--- NOTE | 2020-12-05 10:52 | MHC.HEMONCMA ---
Patient has been scheduled for 12/11/2020 at 9am for her lymph node biopsy. Patient must be NPO for 4 hours before, and NO aspirin 3 days before ( which the patient is not on any thinners/aspirin). A detailed voicemail was left for the patient, and i did tell her to call me back if she has any questions.
--- NOTE | 2020-12-12 12:27 | PM.EVENT ---
Reviewed FNA of left cervical lymph node pathology with patient. FNA shows benign tissue. ? Lipoma, no lymphoid cells. Excisional biopsy was recommended by pathologist. I discussed this, referral is being made for excision biopsy to Dr. Bullock.
--- NOTE | 2020-12-14 11:13 | MHC.HEMONCMA ---
Patient scheduled for excisional biopsy on 01/01/2021 at 2:15pm. This is the soonest, the office did say she can call every morning to see if there are any cancellations. Their office phone number is [phone].
--- NOTE | 2020-12-17 13:52 | MHC.HEMONCMA ---
Patient notified of excisional biopsy with Dr Bullock. She understands and all questions were answered.
--- NOTE | 2021-01-30 10:49 | MHC.HEMONCMA ---
Patient called asking if she still needs to see the surgeon since she had a CT and it came back negative. I spoke with Dr Mckay- she states that she does not need to keep the appt. Patient was made aware.
--- NOTE | 2021-02-26 08:55 | P.PNHO_ITS ---
Hem/Onc Clinic Telehealth - Telehealth Location of Provider rendering services: office Patient Identification confirmed using: Name, : Yes Patient verbally consented to billing insurance company: Yes Patient informed of any privacy concerns related to visit: Yes Medical Summary - Medical Summary Date of Service: 02/26/21 Chief complaint: follow-up Interval History Interval history: This is scheduled follow-up for patient, she was consented for tele visit based on COVID-19 pandemic guidelines. She is doing quite well and has no complaints today. She had a CT of the neck which was negative and therefore did not go to see a surgeon. She denies any complaints pertaining to her neck such as swelling, pain,dysphagia or dysphonia. Review of Systems - Constitutional Reports as per HPI, Reports no additional constitutional complaints Home Medications and Allergies Home Medications Medication Instructions Recorded Confirmed Type albuterol sulfate 90 mcg/actuation 90 inh INHALATION DAILY 06/26/20 01/03/21 History aerosol inhaler azelastine 137 mcg (0.1 %) nasal 137 mcg INTRANASAL DAILY 06/26/20 01/03/21 History spray aerosol beclomethasone dipropionate 80 80 mcg INHALATION DAILY 06/26/20 01/03/21 History mcg/actuation HFA breath activated aerosol celecoxib 200 mg capsule 200 mg PO DAILY 06/26/20 01/03/21 History cyanocobalamin (vitamin B-12) 1,000 mcg IM QMONTH 06/26/20 01/03/21 History 1,000 mcg/mL injection solution flecainide 50 mg tablet 50 mg PO BID 06/26/20 01/03/21 History lansoprazole 30 mg capsule,delayed 30 mg PO DAILY 06/26/20 01/03/21 History release metoprolol succinate 25 mg 12.5 mg PO DAILY 06/26/20 01/03/21 History tablet,extended release 24 hr montelukast 10 mg tablet 10 mg PO DAILY 06/26/20 01/03/21 History cyclosporine [Restasis] 0.05 drp OPHTHALMIC (EYE) DAILY 12/04/20 01/03/21 History calcium carbonate 600 mg (1,500 1 tab PO DAILY 01/03/21 01/03/21 History mg)-vitamin D3 400 unit tablet flaxseed oil 1,000 mg capsule 1,000 mg PO DAILY 01/03/21 01/03/21 History Allergies Allergy/AdvReac Type Severity Reaction Status Date / Time oxycodone [From Percocet] Allergy Mild NAUSEA,HIVES,THROWING Verified 11/21/20 09:14 UP/ acetaminophen [Percocet] Allergy Unknown unknown Verified 11/21/20 09:14 Penicillins Allergy blood work Verified 11/21/20 09:14 codeine [Codeine] AdvReac Mild NAUSEA Verified 11/21/20 09:14 Adhesive Bandage Allergy Mild RED/IRRITAT Uncoded 11/21/20 09:14 ED/RAW dairy protein Allergy Unknown unknown Uncoded 11/21/20 09:14 dairy,eggs, wheat,nuts,mold Allergy Unknown unknown Uncoded 11/21/20 09:14 Exam Vital signs: Vital Signs Temp 98.3 F 12/04/20 08:13 Pulse 64 12/04/20 08:13 Resp 14 12/04/20 08:13 BP 131/63 12/04/20 08:13 Pulse Ox 98 12/04/20 08:13 Weight 77.6 kg Body Mass Index 31.8 Narrative: patient was not examined today. - Constitutional Present: no acute distress - Routine HEENT Exam Head: Present: normal inspection - Routine Chest/Breast/Axilla Exam Chest wall: Absent: mass - Routine Respiratory Exam Present: CTAB - Routine Cardiovascular Exam Cardiovascular: Present: RRR, S1, S2 - Routine Abdominal Exam Present: soft. Absent: organomegaly - Routine Extremities Exam Absent: pedal edema Data - Labs CBC & Chem 7: 12/04/20 09:09 Labs: 12/04/20 09:09 Beta-2 Microglobulin, Serum Routine Complete Blood Count Auto Diff Routine Lactate Dehydrogenase Routine Mixing Study (PT/PTT) Routine PTT [Partial Thromboplastin Time] Routine Prothrombin Time INR Routine 12/04/20 12:28 Add Laboratory Test Routine Laboratory Last Values WBC 9.7 X10*3/uL (4.8-10.8) 12/04/20 09:09 RBC 4.73 X10*6/uL (4.20-5.50) 12/04/20 09:09 Hgb 13.4 g/dl (12.0-16.0) 12/04/20 09:09 Hct 41.5 % (37-47) 12/04/20 09:09 MCV 87.7 fL (80-98) 12/04/20 09:09 MCH 28.3 pg (27.0-33.0) 12/04/20 09:09 MCHC 32.3 g/dl (31.0-35.0) 12/04/20 09:09 RDW 13.7 % (11.0-16.0) 12/04/20 09:09 Plt Count 258 X10*3/uL (160-400) 12/04/20 09:09 MPV 9.5 fL (9.4-12.3) 12/04/20 09:09 Immature Gran % (Auto) 0.4 % (0.0-0.4) 12/04/20 09:09 Neut % (Auto) 78.4 % (45-73) H 12/04/20 09:09 Lymph % (Auto) 12.4 % (20-40) L 12/04/20 09:09 [place] % (Auto) 6.0 % (2-11) 12/04/20 09:09 Eos % (Auto) 2.3 % (0-4) 12/04/20 09:09 Baso % (Auto) 0.5 % (0-2) 12/04/20 09:09 Lymph # (Auto) 1.2 X10*3/uL (1.2-4.9) 12/04/20 09:09 [place] # (Auto) 0.6 X10*3/uL (0.1-1.2) 12/04/20 09:09 Eos # (Auto) 0.2 X10*3/uL (0.0-0.4) 12/04/20 09:09 Baso # (Auto) 0.1 X10*3/uL (0.0-0.2) 12/04/20 09:09 Abs Immat Gran (auto) 0.04 X10*3/uL (0.00-0.03) H 12/04/20 09:09 Absolute Neuts (auto) 7.6 X10*3/uL (2.0-8.3) 12/04/20 09:09 Absolute Nucleated RBC 0.000 X10*3/uL (0.0-0.012) 12/04/20 09:09 Nucleated RBC % (auto) 0.0 /100WBC (0.0-0.2) 12/04/20 09:09 PT 11.9 SEC (10.8-13.0) 12/04/20 09:09 INR 1.0 (0.9-1.1) 12/04/20 09:09 APTT 46.6 SEC (24.1-38.0) H 12/04/20 09:09 PT Mixing Study TNP 12/04/20 09:09 PT Normal Plasma Immed TNP 12/04/20 09:09 PTT Mixing Study SEE NOTE 12/04/20 09:09 PTT Normal Plasma Immed TNP 12/04/20 09:09 PTT Normal Plasma Post TNP 12/04/20 09:09 Mixing Interpretation TNP 12/04/20 09:09 Lactate Dehydrogenase 178 U/L (122-220) 12/04/20 09:09 [id number] 1.80 mg/L (< OR = 2.51) 12/04/20 09:09 Progress Note: A/P (1) Lymphadenopathy of head and neck Problem details: L submandibular adenopathy Status: Chronic Assessment and plan: 1. This is a 65-year-old woman with left neck lymphadenopathy noted in August 2020. She had a FNA performed on 10/05/2020 at [facility] which was read as nondiagnostic, no lymphoid material identified. I reviewed ultrasound with radiologist and this lymph node definitely looks suspicious for malignancy on imaging. Fortunately the size has gone down and patient's initial symptoms of drenching night sweats have resolved. Blood work in November showednormal CBC and LDH. She has had ENT evaluation at [facility] and they have told her there was no suspicion for head and neck cancers. we discussed excision biopsy and she was referred to Dr. Bullock. However she had a CT neck ordered by her PCP prior to the visit which showed no lymphadenopathy at all. Therefore this was canceled. 2. Elevated PTT with normal PT/INR. Patient does not give any history of bleeding with surgical procedures in the past and there is no family history of Von Willebrand's disease. Repeat PTT with mixing studies sent to [facility] showed normal mixing studies and there was no elevation of PTT. Patient will now follow up with her PCP. I spent about 3 minutes with the patient on the phone and 10 minutes reviewing her records. - Time Spent With Patient Total time spent is greater than 50% in coordination of care (as documented) at patient's floor/unit and/or counseling patient: less than 15 minutes
--- NOTE | 2021-02-26 10:36 | MHC.HEMONCMA ---
Patient had a telehealth with Dr Mckay today, patient states that she is doing well. Clinical summary was reviewed and updated. Patient did not have labs, and does not need to return to the office for a follow up.
== END | disposition home or self-care (01) ==
LOC: HO.ONC 12-04 08:08
PROVIDERS: PCP Internal Medicine; Visit Provider Internal Medicine
DX: R59.0 Localized enlarged lymph nodes (principal); R79.1 Abnormal coagulation profile
CPT/HCPCS: 36415; 82232; 83615; 85025; 85610; 85611; 85730; 85732; 99204; Q3014

== ENCOUNTER 2024-06-10 10:39 | Outpatient (REF) | payer MEDICARE, SELFPAY ==
[2024-06-10 14:11] LABS: Influenza A PCR NEGATIVE (Negative); Influenza B PCR NEGATIVE (Negative); Resp Syncy Virus RNA Qual PCR NEGATIVE (Negative); SARS COV2 PCR INHOUSE NEGATIVE (Negative)
== END 2024-06-10 10:40 | disposition home or self-care (01) ==
LOC: HO.LAB 10:39
PROVIDERS: Physician Assistant Medical; PCP Physician Assistant
DX: J06.9 Acute upper respiratory infection, unspecified (principal); J02.9 Acute pharyngitis, unspecified; J01.90 Acute sinusitis, unspecified
CPT/HCPCS: 0241U; 87880; 99212

== ENCOUNTER 2024-06-10 10:39 | Outpatient (AMB) | payer MEDICARE, SELFPAY ==
--- OUTSIDE RECORDS SUMMARY | 2024-06-10 10:41 | XMS_ITS | Continuity of Care Document ---
Author Organization [facility] Address [address] [address]- Care Team Providers Care Hand Laster Name Role Phone Nataliia Hinojosa MD Primary Care Physician [id number] Date(s[facility] 08/24/20 - 08/31/20 [facility] [address] [address]- Attending Physician: Nathaly Sutherland Admitting Physician: Nathaly [...] 0 Refills, Maintenance, 04/22/19 10:45:51 EDT, [place] Start Date: 04/22/19 Status: Ordered lansoprazole 30 [...]
--- OUTSIDE RECORDS SUMMARY | 2024-06-10 10:41 | XMS_ITS | Continuity of Care Document ---
Author Organization [facility] Address [address] [address]- Care Team Providers Care Structural Engineering Technician Name Role Phone Louis Shirley Primary Care Physician [phone] Encounter [facility] ACCT R [id number] Date(s): 02/12/24 - 02/19/24 [facility] [address] [address]- Attending Physician: Nathaly Sutherland Admitting Physician: Nathaly [...] 3 Refills, Maintenance, 01/05/24 9:13:00 EDT, Tablet, [facility][id number], Partial fill upon patient request if the [...] AM, 0 Refills, Maintenance, 04/22/19 10:45:51 EDT, [place] Start Date: 04/22/19 Status: Ordered lansoprazole 30 [...] opioid drug. Start Date: 06/27/21 Status: Ordered Reclast 5 mg/100 mL intravenous solution = 5 mg, IV Infusion, Once, 0 Refills, Maintenance, 02/03/24 13:58:00 EDT, Partial fill upon patientrequest if the prescription is for a schedule II opioid drug. Start Date: 02/03/24 Status: Ordered Singulair 10 mg oral tablet 10 mg, 1, tablet, By Mouth, Daily, Refills 0, Maintenance, 02/22/20 10:03:00 EDT Start Date: 02/22/20 Status: Ordered Toprol XL 25 mg oral tablet, extended release 25 mg, 1, tablet, By Mouth, Daily, # 30 tablet, Refills 4, Tot. Refills 4, Maintenance, 11/21/23 11:44:00 EST, Route to Pharmacy Electronically, [facility] #[id number], 160, cm, 11/21/23 8:09:00EST, Height, 79, kg, [...] Safety Implantable Status Assigning Authority Unknown Unknown [id number] Unknown 08/05/23 Unknown Unknown Active Un known Procedure Provider Procedure Date Device Type Site Lengthening Luca Pedro MD 06/02/22 Un known Foot Right Device Identifier Serial Number Lot or Batch Number Manufacturing Date Expiration Date Distinct Identification Code MRI Safety Implantable Status Assigning Authority Unknown [id number] Unknown 10/11/23 Unknown Unknown Active Unknown Patient Care team information Care Team Personnel Name: Louis Shirley Position: Reference Physician Member Role: PCP Address: Address: [address] [place] [address]- Name: Kalen Christine RN Position: S RN Member Role: Primary Care Nurse Name: Reyna Martinez RN Position: S RN Member Role: Primary Care Nurse Care Team Related Persons Name: TY NORTH Address: home [address] [place] [address] Name: VANESSA PATEL Address: [address] [place] [address]
--- OUTSIDE RECORDS SUMMARY | 2024-06-10 10:42 | XMS_ITS | Continuity of Care Document ---
Author Organization [facility] Address [address] [address]- Care Team Providers Care Facilities Maintenance Supervisor Name Role Phone Louis Shirley Primary Care Physician Encounter [facility] Date(s): 03/15/24 - 04/14/24 [facility] [address] [address]- Attending Physician: Luzmaria Michael Admitting Physician: AdmtrLuzmaria [...] 3 Refills, Maintenance, 01/05/24 9:13:00 EDT, Tablet, [facility] #[id number], Partial fill upon patient request if the [...] AM, 0 Refills, Maintenance, 04/22/19 10:45:51 EDT, [place] Start Date: 04/22/19 Status: Ordered lansoprazole 30 [...] 11/21/23 11:44:00 EST, Route to Pharmacy Electronically, [facility] #[id number], 160, cm, 11/21/23 8:09:00EST, Height, 79, kg, [...] Safety Implantable Status Assigning Authority Unknown Unknown [id number] Unknown 08/05/23 Unknown Unknown Active Un known Procedure Provider Procedure Date Device Type Site Lengthening Luca Pedro MD 06/02/22 Un known Foot Right Device Identifier Serial Number Lot or Batch Number Manufacturing Date Expiration Date Distinct Identification Code MRI Safety Implantable Status Assigning Authority Unknown [id number] -1 Unknown 10/11/23 Unknown Unknown Active Unknown Patient Care team information Care Team Personnel Name: Louis Shirley Position: Reference Physician Member Role: PCP Address: Address: [address] [place] [address]- Name: Kalen Christine RN Position: S RN Member Role: Primary Care Nurse Name: Reyna Martinez RN Position: S RN Member Role: Primary Care Nurse Care Team Related Persons Name: TY NORTH Address: home [address] [place] [address] Name: VANESSA PATEL Address: home [address] [place] [address]
--- OUTSIDE RECORDS SUMMARY | 2024-06-10 10:42 | XMS_ITS | Continuity of Care Document ---
Author Organization [facility] Address [address] [address]- Care Team Providers Care Felt Tipping Machine Tender Name Role Phone Louis Shirley Primary Care Physician [phone] Encounter [facility] Date(s): 01/05/24 - 02/04/24 [facility] [address] [address]- [place] Allergies, Adverse Reactions, Alerts Substance Reaction [...] 3 Refills, Maintenance, 01/05/24 9:13:00 EDT, Tablet, [facility] #[id number], Partial fill upon patient request if the [...] AM, 0 Refills, Maintenance, 04/22/19 10:45:51 EDT, [place] Start Date: 04/22/19 Status: Ordered lansoprazole 30 [...] 11/21/23 11:44:00 EST, Route to Pharmacy Electronically, [facility] #[id number], 160, cm, 11/21/23 8:09:00EST, Height, 79, kg, [...] Safety Implantable Status Assigning Authority Unknown Unknown [id number] Unknown 08/05/23 Unknown Unknown Active Un known Procedure Provider Procedure Date Device Type Site Lengthening Gastrocnemius Luca Acosta MD 06/02/22 Un known Foot Right Device Identifier Serial Number Lot or Batch Number Manufacturing Date Expiration Date Distinct Identification Code MRI Safety Implantable Status Assigning Authority Unknown [id number] Unknown 10/11/23 Unknown Unknown Active Unknown Patient Care team information Care Team Personnel Name: Louis Shirley Position: Reference Physician Member Role: PCP Address: Address: [address] [place], [place] [address] Name: Kalen Christine RN Position: S RN Member Role: Primary Care Nurse Name: Reyna Martinez RN Position: S RN Member Role: Primary Care Nurse Care Team Related Persons Name: TY NORTH Address: home [address] [place] [address] Name: VANESSA PATEL Address: home [address] [place] [address]
--- OUTSIDE RECORDS SUMMARY | 2024-06-10 10:42 | XMS_ITS | Continuity of Care Document ---
Author Organization [facility] ter Address [address] [place] [address]- Care Team Providers Care Stitch Welder Name Role Phone Louis Shirley Primary Care Physician [phone] Encounter [facility] Date(s): 03/16/24 - 05/13/[address] [address]- Attending Physician: Gerri Barcenas Admitting Physician: Gerri Barcenas Referring Physician: Gerri Barcenas Allergies, Adverse Reactions, Alerts Substance Reaction Severity [...] 3 Refills, Maintenance, 01/05/24 9:13:00 EDT, Tablet, [facility] #[id number], Partial fill upon patient request if the [...] AM, 0 Refills, Maintenance, 04/22/19 10:45:51 EDT, [place] Start Date: 04/22/19 Status: Ordered lansoprazole 30 [...] 11/21/23 11:44:00 EST, Route to Pharmacy Electronically, [facility] #[id number], 160, cm, 11/21/23 8:09:00EST, Height, 79, kg, [...] Safety Implantable Status Assigning Authority Unknown Unknown [id number] Unknown 08/05/23 Unknown Unknown Active Un known Procedure Provider Procedure Date Device Type Site Lengthening Luca Pedro MD 06/02/22 Un known Foot Right Device Identifier Serial Number Lot or Batch Number Manufacturing Date Expiration Date Distinct Identification Code MRI Safety Implantable Status Assigning Authority Unknown [id number] Unknown 10/11/23 Unknown Unknown Active Unknown Patient Care team information Care Team Personnel Name: Louis Shirley Position: Reference Physician Member Role: PCP Address: Address: [address] [place] [address]- Name: Kalen Christine RN Position: S RN Member Role: Primary Care Nurse Name: Reyna Martinez RN Position: S RN Member Role: Primary Care Nurse Care Team Related Persons Name: TY NORTH Address: [address] [place] [address] Name: VANESSA PATEL Address: [address] [place] [address]
--- OUTSIDE RECORDS SUMMARY | 2024-06-10 10:43 | XMS_ITS | Continuity of Care Document ---
Author Organization [facility] ter Address [address] [place] [address]- Care Team Providers Care Staff Pharmacist Hospital Name Role Phone Nataliia Hinojosa MD Primary Care Physician Encounter [facility] ACCT R [id number] Date(s): 01/15/23 - 01/15/[address] [address]- Discharge Disposition: A-D/C Home Attending Physician: Weston [...] AM, 0 Refills, Maintenance, 04/22/19 10:45:51 EDT, [place] Start Date: 04/22/19 Status: Ordered lansoprazole 30 [...] oldest [Reference Range]: 1 Height 155 cm (01/15/23 8:19 AM) Weight 79.9 kg (01/15/23 8:19 AM) Oxygen Saturation [94-100 %] 100 % (01/15/23 8:19 AM) Pulse Rate [55-90 bpm] 63 bpm (01/15/23 8:19 AM) Body Mass Index [18.5-24.99 kg/m2] 33.26 kg/m2 *>HHI* (01/15/23 8:19 AM) Blood Pressure [90-138/55-84 mm Hg] 138/ 72mm Hg (01/15/23 8:19 AM) Respiratory Rate [16-30 br/min] 16 br/mi n (01/15/23 8:19 AM) Temperature [96.8-100.4 DegF] 97.8 DegF (01/15/23 8:19 AM) Mode of Delivery (Oxygen) Room air (01/15/23 8:19 AM) Blood pressure sites Arm, right (01/15/23 8:19 AM) Temperature Route Temporal (01/15/23 8:19 AM) Dry Weight 79.9 kg (01/15/23 8:19 AM) Weight Obtained Via Standing scale (01/15/23 8:19 AM) Dry Weight Obtained Via Standing scale (01/15/23 8:19 AM) Social History Social History Type Response [...] Safety Implantable Status Assigning Authority Unknown Unknown [id number] Unknown 08/05/23 Unknown Unknown Active Un known Procedure Provider Procedure Date Device Type Site Lengthening Gastrocnemius Luca Acosta MD 06/02/22 Un known Foot Right Device Identifier Serial Number Lot or Batch Number Manufacturing Date Expiration Date Distinct Identification Code MRI Safety Implantable Status Assigning Authority Unknown [id number] -1 Unknown 10/11/23 Unknown Unknown Active Unknown EKG study * Event Display: ECG 12-Lead Authored Date: Please click on pdf link to open report * Event Display: ECG 12-Lead Authored Date: Ventricular Rate: 64 BPM Atrial Rate: 64 BPM P-R Interval: 140 ms QRS Duration: 88 ms Q-T Interval: 410 ms QTC Calculation(Bazett): 422 ms P Clinton: 60 degrees R Clinton: -4 degrees T Clinton: 11 degrees Normal sinus rhythm Normal ECG When compared with ECG of 24-SEP-2022 09:56, Incomplete right bundle branch block is no longer Present Minimal criteria for Septal infarct are no longer Present Nonspecific T wave abnormality no longer evident in Anterior leads Confirmed by SAMANTHA WELLS ([id number]) on 01/15/2023 6:13:25 PM [place]: SAMANTHA WELLS [facility] Progress note * Linda Cannon: PERFORM, SIGN, VERIFY Event Display: Progress Note Hospital Authored Date: [id number] Patient: STEFANIE PATEL Age: 67 years Sex: Female : 1955 Associated Diagnoses: None Author: Linda Cannon Findings Narrative/Incidental pt was ready for procedure and waiting to be consented by Dr. Byrd. patients case was canceled per Dr. Byrd, will be rescheduled for a later date. IV discontinued, pt called ride and brought upstairs to the lobby.. Patient Care team information Care Team Personnel Name: Tracy Martinez RN Position: S RN Member Role: Primary Care Nurse Name: Nataliia Hinojosa MD Position: [facility] Physician (General Medicine) Member Role: PCP Address: Address: [address] [place], [place] [address] Name: Maria Guadalupe Castellon RN Position: [facility] RN Supv Member Role: Primary Care Nurse Care Team Related Persons Name: TY NORHT Address: [address] [place] [address] Name: VANESSA PATEL Address: home [address] [place] [address]
--- OUTSIDE RECORDS SUMMARY | 2024-06-10 10:43 | XMS_ITS | Continuity of Care Document ---
Author Organization [facility] Address [address] [address]- Care Team Providers Care Planning Advisor Name Role Phone Louis Shirley Primary Care Physician Encounter [facility] ACCT R [id number] Date(s): 03/15/24 - 03/22/24 [facility] [address] [address]- Attending Physician: Nathaly Sutherland Admitting Physician: Nathaly [...] 3 Refills, Maintenance, 01/05/24 9:13:00 EDT, Tablet, [facility] #[id number], Partial fill upon patient request if the [...] AM, 0 Refills, Maintenance, 04/22/19 10:45:51 EDT, [place] Start Date: 04/22/19 Status: Ordered lansoprazole 30 [...] 11/21/23 11:44:00 EST, Route to Pharmacy Electronically, [facility] #[id number], 160, cm, 11/21/23 8:09:00EST, Height, 79, kg, [...] Safety Implantable Status Assigning Authority Unknown Unknown [id number] Unknown 08/05/23 Unknown Unknown Active Un known Procedure Provider Procedure Date Device Type Site Lengthening Luca Pedro MD 06/02/22 Un known Foot Right Device Identifier Serial Number Lot or Batch Number Manufacturing Date Expiration Date Distinct Identification Code MRI Safety Implantable Status Assigning Authority Unknown [id number] -1 Unknown 10/11/23 Unknown Unknown Active Unknown Patient Care team information Care Team Personnel Name: Louis Shirley Position: Reference Physician Member Role: PCP Address: Address: [address] [place] [address]- Name: Kalen Christine RN Position: S RN Member Role: Primary Care Nurse Name: Reyna Martinez RN Position: S RN Member Role: Primary Care Nurse Care Team Related Persons Name: TY NORTH Address: [address] [place] [address] Name: VANESSA PATEL Address: [address] [place] [address]
--- OUTSIDE RECORDS SUMMARY | 2024-06-10 10:44 | XMS_ITS | Continuity of Care Document ---
Author Organization [facility] Address [address] [address]- Care Team Providers Care Applications Support Specialist Name Role Phone Louis Shirley Primary Care Physician Encounter [facility] ACCT R [id number] Date(s): 01/14/24 - 02/13/24 [facility] [address] [address]- [place] Allergies, Adverse Reactions, Alerts Substance Reaction [...] 3 Refills, Maintenance, 01/05/24 9:13:00 EDT, Tablet, [facility][id number], Partial fill upon patient request if the [...] AM, 0 Refills, Maintenance, 04/22/19 10:45:51 EDT, [place] Start Date: 04/22/19 Status: Ordered lansoprazole 30 [...] 11/21/23 11:44:00 EST, Route to Pharmacy Electronically, [facility] #[id number], 160, cm, 11/21/23 8:09:00EST, Height, 79, kg, [...] Safety Implantable Status Assigning Authority Unknown Unknown [id number] Unknown 08/05/23 Unknown Unknown Active Un known Procedure Provider Procedure Date Device Type Site Lengthening Gastrocnemius Luca Acosta MD 06/02/22 Un known Foot Right Device Identifier Serial Number Lot or Batch Number Manufacturing Date Expiration Date Distinct Identification Code MRI Safety Implantable Status Assigning Authority Unknown [id number] -1 Unknown 10/11/23 Unknown Unknown Active Unknown Patient Care team information Care Team Personnel Name: Louis Shirley Position: Reference Physician Member Role: PCP Address: Address: [address] [place] [address] Name: Kalen Christine RN Position: S RN Member Role: Primary Care Nurse Name: Reyna Martinez RN Position: S RN Member Role: Primary Care Nurse Care Team Related Persons Name: TY NORTH Address: [address] [place] [address] Name: VANESSA PATEL Address: [address] [place] [address]
--- OUTSIDE RECORDS SUMMARY | 2024-06-10 10:44 | XMS_ITS | Continuity of Care Document ---
Author Organization [facility] Address [address] [place] [address]- Care Team Providers Care Telegraph Editor Name Role Phone Louis Shirley Primary Care Physician [place] [facility] [place]): 03/21/24 - 04/20/24 [facility] [address] [place] [address]- [place] Allergies, Adverse Reactions, Alerts Substance Reaction [...] 3 Refills, Maintenance, 01/05/24 9:13:00 EDT, Tablet, [facility][id number], Partial fill upon patient request if the [...] AM, 0 Refills, Maintenance, 04/22/19 10:45:51 EDT, [place] Start Date: 04/22/19 Status: Ordered lansoprazole [...] 11/21/23 11:44:00 EST, Route to Pharmacy Electronically, [facility][id number], 160, cm, 11/21/23 8:09:00EST, Height, 79, kg, [...] Safety Implantable Status Assigning Authority Unknown Unknown [id number] Unknown 08/05/23 Unknown Unknown Active Un known Procedure Provider Procedure Date Device Type Site Lengthening Gastrocnemius Luca Acosta MD 06/02/22 Un known Foot Right Device Identifier Serial Number Lot or Batch Number Manufacturing Date Expiration Date Distinct Identification Code MRI Safety Implantable Status Assigning Authority Unknown [id number] Unknown 10/11/23 Unknown Unknown Active Unknown Patient Care team information Care Team Personnel Name: Louis Shirley Position: Reference Physician Member Role: PCP Address: Address: [address] [facility] [address] [place] [id number] Name: Klaen Christine RN Position: [facility] RN Member Role: Primary Care Nurse Name: Reyna Martinez RN Position: [facility] RN Member Role: Primary Care Nurse Care Team Related Persons Name: TY NORTH Address: home [address] [place] [address] Name: VANESSA PATEL Address: home [address] [place] [address]
--- OUTSIDE RECORDS SUMMARY | 2024-06-10 10:44 | XMS_ITS | Continuity of Care Document ---
Author Organization [facility] Address [address] [place] [address]- Care Team Providers Care Kitchen And Bath Designer Name Role Phone Louis Shirley Primary Care Physician [phone] Encounter [facility] [place] Date(s): 03/30/24 - 04/29/24 [facility] [address] [place] [address]- [place] Allergies, Adverse Reactions, Alerts Substance Reaction [...] 3 Refills, Maintenance, 01/05/24 9:13:00 EDT, Tablet, [facility] #[id number], Partial fill upon patient request if the [...] AM, 0 Refills, Maintenance, 04/22/19 10:45:51 EDT, [place] Start Date: 04/22/19 Status: Ordered lansoprazole 30 [...] 11/21/23 11:44:00 EST, Route to Pharmacy Electronically, [facility] #[id number], 160, cm, 11/21/23 8:09:00EST, Height, 79, kg, [...] Safety Implantable Status Assigning Authority Unknown Unknown [id number] Unknown 08/05/23 Unknown Unknown Active Un known Procedure Provider Procedure Date Device Type Site Lengthening Gastrocnemius Luca Acosta MD 06/02/22 Un known Foot Right Device Identifier Serial Number Lot or Batch Number Manufacturing Date Expiration Date Distinct Identification Code MRI Safety Implantable Status Assigning Authority Unknown [id number] Unknown 10/11/23 Unknown Unknown Active Unknown Patient Care team information Care Team Personnel Name: Louis Shirley Position: Reference Physician Member Role: PCP Address: Address: [address] [facility] [address] [place] [id number] Name: Kalen Christine RN Position: [facility] RN Member Role: Primary Care Nurse Name: Reyna Martinez RN Position: [facility] RN Member Role: Primary Care Nurse Care Team Related Persons Name: TY NORTH Address: home [address] [place] [address] Name: VANESSA PATEL Address: [address] [place] [address]
--- OUTSIDE RECORDS SUMMARY | 2024-06-10 10:45 | XMS_ITS | Continuity of Care Document ---
Author Organization [facility] Address [address] [address]- Care Team Providers Care Cardiovascular Operating Room Nurse Name Role Phone Louis Shirley Primary Care Physician Encounter [facility] Date(s): 02/03/24 - 03/04/24 [facility] [address] [address]- Attending Physician: Luzmaria Michael Admitting Physician: AdmtrLuzmaria [...] 3 Refills, Maintenance, 01/05/24 9:13:00 EDT, Tablet, [facility] #[id number], Partial fill upon patient request if the [...] AM, 0 Refills, Maintenance, 04/22/19 10:45:51 EDT, [place] Start Date: 04/22/19 Status: Ordered lansoprazole 30 [...] 11/21/23 11:44:00 EST, Route to Pharmacy Electronically, [facility] #[id number], 160, cm, 11/21/23 8:09:00EST, Height, 79, kg, [...] Safety Implantable Status Assigning Authority Unknown Unknown [id number] Unknown 08/05/23 Unknown Unknown Active Un known Procedure Provider Procedure Date Device Type Site Lengthening Luca Pedro MD 06/02/22 Un known Foot Right Device Identifier Serial Number Lot or Batch Number Manufacturing Date Expiration Date Distinct Identification Code MRI Safety Implantable Status Assigning Authority Unknown [id number] Unknown 10/11/23 Unknown Unknown Active Unknown Patient Care team information Care Team Personnel Name: Lousi Shirley Position: Reference Physician Member Role: PCP Address: Address: [address] [place] [address]- Name: Kalen Christine RN Position: S RN Member Role: Primary Care Nurse Name: Reyna Martinez RN Position: S RN Member Role: Primary Care Nurse Care Team Related Persons Name: TY NORTH Address: [address] [place] [address] Name: VANESSA PATEL Address: [address] [place] [address]
--- OUTSIDE RECORDS SUMMARY | 2024-06-10 10:45 | XMS_ITS | Continuity of Care Document ---
Author Organization [facility] Address [address] [address]- Care Team Providers Care Spanish Instructor Name Role Phone Louis Shirley Primary Care Physician Encounter [facility] Date(s): 02/03/24 - 02/10/24 [facility] [address] [address]- Attending Physician: Weston Calix MD Admitting Physician: [...] 3 Refills, Maintenance, 01/05/24 9:13:00 EDT, Tablet, [facility] #[id number], Partial fill upon patient request if the [...] AM, 0 Refills, Maintenance, 04/22/19 10:45:51 EDT, [place] Start Date: 04/22/19 Status: Ordered lansoprazole 30 [...] 11/21/23 11:44:00 EST, Route to Pharmacy Electronically, [facility] #[id number], 160, cm, 11/21/23 8:09:00EST, Height, 79, kg, [...] recent to oldest [Reference Range]: 1 Height 160 cm (02/03/24 1:59 PM) Weight 82.7 kg (02/03/24 1:59 PM) Oxygen Saturation [94-100 %] 96 % (02/03/24 1:59 PM) Pulse Rate [55-90 bpm] 63 bpm (02/03/24 1:59 PM) Body Mass Index [18.5-24.99 kg/m2] 32.3 kg/m2 *>HHI* (02/03/24 1:59 PM) Blood Pressure [90-138/55-84 mm Hg] 129/ 52mm Hg (02/03/24 1:59 PM) Mode of Delivery (Oxygen) Room air (02/03/24 1:59 PM) Blood pressure sites Arm, left (02/03/24 1:59 PM) Weight Obtained Via Standing scale (02/03/24 1:59 PM) Social History Social History Type Response [...] Safety Implantable Status Assigning Authority Unknown Unknown [id number] Unknown 08/05/23 Unknown Unknown Active Un known Procedure Provider Procedure Date Device Type Site Lengthening Gastrocnemius Luca Acosta MD 06/02/22 Un known Foot Right Device Identifier Serial Number Lot or Batch Number Manufacturing Date Expiration Date Distinct Identification Code MRI Safety Implantable Status Assigning Authority Unknown [id number] Unknown 10/11/23 Unknown Unknown Active Unknown EKG study * Event Display: ECG 12-Lead Authored Date: Please click on pdf link to open report * Event Display: ECG 12-Lead Authored Date: Ventricular Rate: 63 BPM Atrial Rate: 63 BPM P-R Interval: 122 ms QRS Duration: 78 ms Q-T Interval: 374 ms QTC Calculation(Bazett): 382 ms P [place]: 38 degrees R [place]: 12 degrees T [place]: 8 degrees Normal sinus rhythm with sinus arrhythmia Cannot rule out Anterior infarct , age undetermined Abnormal ECG Confirmed by WESTON CALIX ([id number]) on 02/03/2024 8:07:51 PM [place]: WESTON CALIX Cardiology Outpatient Note * Weston Calix MD M: PERFORM Event Display: Cardiology Note Office Authored Date: [id number] Patient: ??STEFANIE PATEL ? Age:??68 Years?Sex:??Female?:??1955?? Indication for Consult Paroxysmal atrial fibrillation and SVT History of Present Illness/Interval History I saw Bam in follow-up in the cardiac arrhythmia clinic at [facility]. ??He is a 68-year-old lady was known to me from the outpatient setting with history of??probable paroxysmal SVT and paroxysmal atrial fibrillation who underwent an EP study in August 2023 where she was only inducible for??paroxysmal atrial fibrillation and was very easily inducible for that.? Patient ultimately had a redo??procedure??after recurrences on flecainide??in December 2023.?? She hada cath ablation procedure for atrial fibrillation by pulm vein isolation. 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 ?? She sees me today in follow-up.?? Patient has had no further recurrence of any arrhythmia.?? Ap has done very well without any antiarrhythmic agents. Review of Systems ?Constitutional, Eye, Skin, Head/Neck, ENMT, Respiratory, Cardio, Gastrointestinal, Endocrine, Muscoloskeletal, Neurologic, Psych reviewed and negative except as noted in HPI.?? Physical Exam Vitals & Measurements HR:??63??(Peripheral)?? BP:??129/52?? SpO2:??96%?? HT:??160??cm?? WT:??82.7??kg?? BMI:??32.3?? Weight lb/oz: 182 lb 5 oz ?General not in acute distress ?HEENT: PERRLA ?Neck: No JVD, No thyromegaly ?Lungs: clear to auscultation bilaterally ?Cardiovascular: regular rate and rhythm, normal s1 and s2 no murmurs ?Abdomen: soft, nontender, positive bowel sounds ?Extremities: no edema ?Skin: No rash ?Neuro: grossly normal ?? EKG shows normal sinus rhythm with normal conduction intervals Assessment/Plan Symptomatic paroxysmal SVT Paroxysmal atrial fibrillation [id number] Status post catheter ablation procedure by PVI and slow pathway modification Paroxysmal SVT (supraventricular tachycardia) She has not had any further recurrences and remains off of antiarrhythmic agents.?? I will discontinue therapeutic anticoagulation??for the time being.?? Will continue to monitor the patient through her implantable loop recorder. ?? Weston Calix MD Problem List/Past Medical History Ongoing Arthritis Asthma Atrial fibrillation B12 deficiency anemia GERD (gastroesophageal reflux disease) Obese class I Procedure/Surgical History Right thyroid lobectomy: 04/25/19 Right foot fusion [facility] Medications No qualifying data available Lab Results Cardiology Labs WBC: 6.1 k/mm3 (10/22/23) RBC: 4.23 m/mm3 (10/22/23) Hgb:??11.6 Gm/dL??Low (10/22/23) Hct: 36.6 % (10/22/23) MCV: 86.5 femtoliters (10/22/23) MCH: 27.4 pg (10/22/23) MCHC:??31.7 g/dL??Low (10/22/23) Platelet Count: 208 k/mm3 (10/22/23) RDW-SD: 45.1 femtoliters (10/22/23) Nucleated RBC (Automated): 0 #/100 WBC'S (10/22/23) Abs. Neut:??8.2 k/mm3??High (10/21/23) Abs. Lymph: 1 k/mm3 (10/21/23) Abs. [place]:??1 k/mm3??High (10/21/23) Abs. Eo: 0 k/mm3 (10/21/23) Abs. Baso: 0.1 k/mm3 (10/21/23) Neut %:??79.3 %??High (10/21/23) [place] %: 9.8 % (10/21/23) Eos %: 0 % (10/21/23) Baso %: 0.5 % (10/21/23) Imm Gran: 0.7 % (10/21/23) Abs. Imm Gran: 0.1 k/mm3 (10/21/23) INR: 1 (10/22/23) Protime (PT): 10.9 seconds (10/22/23) APTT: 31.9 seconds (10/22/23) Sodium: 140 mmol/L (10/22/23) Potassium: 4.9 mmol/L (10/22/23) Chloride: 105 mmol/L (10/22/23) Bicarbonate Level: 26 mmol/L (10/22/23) Glucose Level: 92 mg/dL (10/22/23) BUN: 18 mg/dL (10/22/23) Creatinine-Blood: 0.8 mg/dL (10/22/23) Calcium:??8.5 mg/dL??Low (10/22/23) Protein, Total:??6 Gm/dL??Low (10/22/23) Albumin: 3.8 Gm/dL (10/22/23) Alkaline Phosphatase: 67 units/L (10/22/23) AST (SGOT): 23 units/L (10/22/23) ALT (SGPT): 25 units/L (10/22/23) Bilirubin, Total: 0.2 mg/dL (10/22/23) Nt-Probnp:??3478 pg/mL??High (10/21/23) Diagnostic Impression ECG ECG 12-Lead ?? 13:53:06 Ventricular Rate: 63 BPM Atrial Rate: 63 BPM P-R Interval: 122 ms QRS Duration: 78 ms Q-T Interval: 374 ms QTC Calculation(Bazett): 382 ms P [place]: 38 degrees R [place]: 12 degrees T [place]: 8 degrees Normal sinus rhythm with sinus arrhythmia Cannot rule out Anterior infarct , age undetermined Abnormal ECG Confirmed by WESTON CALIX ([id number]) on 02/03/2024 8:07:51 PM ?? [place]: WESTON CALIX ?? Signed By: Weston Calix MD ?? ECG 12-Lead ?? 13:53:06 Please click on pdf link to open report ?? Signed By: Weston Calix MD Stress [...] Signatures ?? Signed By: Glenroy Mcghee MD Patient Care team information Care Team Personnel Name: Louis Shirley Position: Reference Physician Member Role: PCP Address: Address: [address] [place] [address]- Name: Kalen Christine RN Position: S RN Member Role: Primary Care Nurse Name: Reyna Martinez RN Position: S RN Member Role: Primary Care Nurse Care Team Related Persons Name: TY NORTH Address: [address] [place] [address] Name: VANESSA PATEL Address: [address] [place] [address]
--- OUTSIDE RECORDS SUMMARY | 2024-06-10 10:46 | XMS_ITS | Patient Health Record ---
Author Organization [facility] Address [address] [place] [address] Care Team Providers Care Vegetable Farmworker Name Role Phone Nataliia Hinojosa MD Primary Care Provider Kamalaa Cindy Gama Unavailable [phone] ALLERGIES Allergen (clinical drug ingredient) Drug/Non Drug [...] TREATMENT Pending Test Test Name Order Date 24129- Debride <25 sq cm 12/10/2017 13530 I&D ABSCESS- SIMPLE,SINGLE 018 Insurance Providers Payer Name Payer Address Payer Phone Subscriber Number Group Number Insured Name Patient Relationship to Insured Coverage Start Date Coverage End Date [employer] Medicare [id number] [address] [address] [place] [address] [id number] Clinton Hoyt Self - patient is the [...]
--- OUTSIDE RECORDS SUMMARY | 2024-06-10 10:46 | XMS_ITS | Patient Health Record ---
Author Organization [facility] Address [address] [place] [address] Care Team Providers Care Fashion Designer Name Role Phone Nataliia Hinojosa MD Primary Care Provider Javier Velázquez Unavailable [phone] ALLERGIES Allergen (clinical drug ingredient) Drug/Non Drug [...] Problem Colon cancer screening (Z12.11) Active confirmed 206018310 Problem Diverticulosis of large intestine without perforation or abscess without bleeding (K57.30) Active confirmed Diverticul ar disease of colon (898004086) Problem Gastroesophageal reflux disease with esophagitis (K21.0) Active confirmed 116189226 Problem Gastroesophageal reflux disease without esophagitis (K21.9) Active confirmed 686694435 Problem Preprocedural examination (Z01.818) Active confirmed [id number] Problem Hiatal hernia (K44.9) Active confirmed 35287854 Problem Irritable bowel syndrome, unspecified type (K58.9) Active confirmed 13208281 PLAN OF TREATMENT Future Test Test Name Order Date UPPER GI ENDOSCOPY 06/10/2011 COLONOSCOPY 06/10/2011 UPPER GI ENDOSCOPY 08/05/2019 COLONOSCOPY 09/09/2022 Insurance Providers Payer Name Payer Address Payer Phone Subscriber Number Group Number Insured Name Patient Relationship to Insured Coverage Start Date Coverage End Date [facility] [address] [address] [place] [address] [id number] NHUNG Garibay STEFANIE Self - patient is [...] in 2001 and in 2006 Hyperlipidemia Denies ID,DM,CVA,Lung disease,renal dise ase 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
--- NOTE | 2024-06-10 11:38 | MHC.OFFWIV ---
Intake Vital Signs 06/10/24 11:51 Weight 184 lb BP 130/90 H Blood Pressure Location Lt brachial Position Sitting Pulse 91 Pulse Source Pulse Oximeter Temp 98.2 F Temp Source Oral Pulse Oximetry (%) 97 Oxygen Delivery Method Room Air Intake Visit Reasons: EP sore throat, sinus pressure-car [phone] Intake Note: Patient here for sore throat, sinus pressure that started last week. Patient Tobacco Use Status: Former Tobacco user Allergies oxycodone [From Percocet] Allergy (Mild, Verified 06/10/24 11:39) NAUSEA,HIVES,THROWING UP/ codeine [Codeine] Adverse Reaction (Mild, Verified 06/10/24 11:39) Constipation dairy protein Allergy (Severe, Uncoded 06/10/24 11:39) Diarrhea dairy,eggs, wheat,nuts,mold Allergy (Severe, Uncoded 06/10/24 11:39) Diarrhea Do you need a note to return to daycare/school/sports/work: No HPI HPI Comments History of Present Illness Details This is a 69-year-old female who presents to the walk-in clinic complaining of sore throat and nasal congestion/rhinorrhea. Patient states she has had sinus pain/pressure with a significant of thick and clear/discharge for the past 3-4 weeks. She started to develop a sore throat about 5 days ago. She reports odynophagia but denies any significant dysphagia. She reports subjective fevers/chills. Patient has been utilizing ffpy-cwm-mexafec medications as well as fluticasone nasal spray, zehra, salt water gargles, and lemon water/tea without relief. [facility] Medical History On beta kendal at home Atrial fibrillation Vitamin B 12 deficiency Multinodular thyroid Osteoporosis Vitamin D deficiency Lymphadenopathy of head and neck Neck pain Normal colonoscopy History of mammogram Asthma Hyperlipidemia GERD (gastroesophageal reflux disease) Arrhythmia Surgical History History of surgery History of lumpectomy of both breasts Hx of cholecystectomy History of esophagogastroduodenoscopy (EGD) H/O colonoscopy History of thyroidectomy S/P foot surgery, right History of rotator cuff surgery Carpal tunnel syndrome H/O arthroscopy of right knee History of breast biopsy History of hysterectomy Family History Father CAD (coronary artery disease) CVD (cardiovascular disease) Mother No problems noted. Brother Cancer Sister Liver cancer CVD (cardiovascular disease) Breast cancer Other Mental health disorder Social History Housing: House Alcohol intake: current Alcohol intake frequency: holidays/special occasions only Patient Tobacco Use Status: Former Tobacco user Tobacco use type: Cigarette Cigarettes Per Day: 5 Years Smoked: 35 e-Cigarette/Vaping Use: Never Used service: No Current occupational status: retired Cognitive needs: No Hearing needs: No Vision needs: Yes Review of Systems Const All systems reviewed & are unremarkable except as noted in HPI and below Reports no additional complaints Eyes Reports no additional complaints ENT Reports no additional complaints Card Reports no additional complaints Resp Reports no additional complaints GI Reports no additional complaints Reports no additional complaints Musc Reports no additional complaints Skin/Breast Reports system reviewed and no additional complaints, except as documented Neuro Reports no additional complaints Psych Reports no additional complaints Endo Reports no additional complaints Luis Enrique/Lymph Reports no additional complaints Aller/Immun Reports no additional complaints Physical Exam Vital Signs: Last Vital Signs Temp 98.2 F 06/10/24 11:51 Pulse 91 06/10/24 11:51 BP 130/90 H 06/10/24 11:51 Pulse Ox 97 06/10/24 11:51 Oxygen Delivery Method Room Air 06/10/24 11:51 Const Other: Vital signs reviewed. Constitutional: Non-toxic appearing. No acute distress. Well-developed and well-nourished. HEENT: Normocephalic and atraumatic. There is some fluid behind the left tympanic membrane but tympanic membranes without erythema, edema, or bulging bilaterally. External auditory canals without erythema or edema bilaterally. Moist mucous membranes. Moderate posterior pharyngeal erythema without edema or exudates. Skin: Warm and dry. No rashes or lesions noted. Neck: Full and painless range of motion. No cervical lymphadenopathy. Cardio: Regular rate and rhythm. No murmurs, gallops, or rubs. No lower extremity edema. No JVD. Pulmonary: No respiratory distress. No accessory muscle usage. Clear to auscultation bilaterally without wheezing, crackles, or rhonchi. Gastrointestinal: Soft, nontender, and nondistended in all 4 quadrants. Musculoskeletal: Normal range of motion in joints throughout the body. No deformity or other signs of injury. Neuro: Alert and oriented x4. Cranial nerves 2-12 grossly intact. No focal deficits appreciated. Psych: Normal mood and affect. Results AMB Rapid Strep AMB Rapid Strep Negative Last Edit by HOSSEIN Gaston on 06/10/24 11:59 Assessment & Plan Assessment & Plan (1) Acute viral pharyngitis: Code(s): J02.9 - Acute pharyngitis, unspecified (2) Acute rhinosinusitis: Code(s): J01.90 - Acute sinusitis, unspecified Plan This is a 69-year-old female who presented to the walk-in clinic complaining of sore throat x5 days in the setting of nasal congestion/rhinorrhea times 3-4 weeks. History and physical appear to be most consistent with acute viral pharyngitis and possible acute bacterial rhinosinusitis. Patient was sent home on p.o. azithromycin 500 mg today followed by 250 mg daily x4 days. Recommended continuing symptomatic management including rest, increased fluids, advil/tylenol for pain/fever as long as patient has no medical contraindications, salt water gargles, and over the counter throat lozenges/decongestants. Patient advised to follow up here or go to the emergency room for worsening/persistent symptoms. Patient verbalized understanding and is agreeable with the plan. Orders: Orders AMB Rapid Strep Screen Today Z13.9 - Encounter for screening, unspecified SARS-CoV2/FLU/RSV Today J06.9 - Acute upper respiratory infection, unspecified Medications: New azithromycin For 250 mg dose pack: take 500 mg today (day 1), then 250 mg for 4 days (days 2-5) PO 6 tabs 0RF Coding Level of Care Code Est Pt Level 3 (66801) Diagnoses Acute viral pharyngitis J02.9 Acute rhinosinusitis J01.90
[2024-06-10 11:51] VITALS: BP 130/90; PULSE 91; TEMP 36.8; O2SAT 97
== END 2024-06-10 12:15 | disposition home or self-care (01) ==
PROVIDERS: PCP Physician Assistant; Visit Provider Physician Assistant Medical
DX: J02.9 Acute pharyngitis, unspecified (principal); J01.90 Acute sinusitis, unspecified; Z13.9 Encounter for screening, unspecified

== ENCOUNTER 2024-06-15 14:23 | Outpatient (AMB) | payer MEDICARE, SELFPAY ==
[2024-06-15 14:25] VITALS: BP 138/80; PULSE 75; BMI 34.3
--- NOTE | 2024-06-15 14:25 | A.OFFVIS_ITS ---
Vital Signs 3 06/15/24 14:25 Height 5 ft 2 in Weight 187 lb 9.814 oz BMI 34.3 BP 138/80 Blood Pressure Location Lt brachial Position Sitting Pulse 75 Pulse Source Pulse Oximeter Intake Visit Reasons: MNG-conf Intake Note: Patient present today for MNG office visit. 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 She also has osteochdonritis dessicans of the ankles. The patient was previously seeing Dr. Ruelas and then last saw Dr. Garner 05/07. 1) Osteoporosis: First diagnosed in 2013 based on screening DXA. Treatment history : Prolia : recieved 9 injections , treated for 4 years, on 05/19/2019, 11/18/2019, 05/23/2020, 11/21/2020, 05/22/2021 and 12/26/2021 ,06/2022. 01/04 and 07/06 Reclast : 02/04 Has 0 servings of dietary calcium per day as she is intolerant to casein protein which is in dairy. Takes Calcium supplement 600 mg daily in divided doses. Takes 400 IU of Vitamin D daily which is int e [employer] brand of calcium vitamin D. She does ride the stationary bike, and walk 9000 steps per day for exercise. Fracture history: Fractures as a child that were traumatic, but never had a fragility fracture. Height loss: Lost 1/2 inch of height since 2013. stable since last visit Has severe GERD. Uses PPI daily. She does use frequent prednisone tapers approximately 4x per year for chronic sinusitis. She uses this Denies ever using anticoagulant or antiepileptic medication. Not received steroids in some time No history of pathologic fracture or ONJ. 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 Menses was always regular. , she did not breastfeed. Had a hysterectomy at the age of 43. She had unilateral oophorectomy, with 1 ovary remaining. Had symptoms of menopause approximately 10 years ago in her early 50's. She was placed on HRT with estrogen patches , but she stopped using these after 1 year. History of Kidney stones: Has no history of kidney stones. No kidney stones in the family. Grandmother with Osteoporosis. No other family history of Osteoporosis or hip fracture. UTD on dental cleanings and sees dentist every 6 months. No planned upcoming dental work or extractions. DXA dated: 12/10/2020 L1-L4: T-1.9, increase of 12.2% since prior B/L Total Hip: T -1.6 RFN T-2.1, increase 6% from prior LFN T-2.0, increase of 2.8% from prior DXA 01/04 Lumbar spine T-score-2.2 with decrease of 3.7% in bone density Total femur T-score -1.4 Right femoral neck T-score-1.9 with increase of 2.4% in bone density Left femoral neck T-score -1.9 with the increase in 4.7% in density Left forearm T-score -3.4, this was a baseline Patient has not had any falls or fractures. 2) NTMNG: Status post right hemithyroidectomy On her initial visit withDr. Ruelas she palpated a thyroid nodule. Thyroid US 2018 revealed 2 subcentimeter R sided thyroid nodules. The R mid pole nodule was hypoechoic with irregular margins. She does mention a family history of thyroid cancer in her niece. FNA biopsy of the R mid 1.0 cm thyroid nodule 02/24/19 with cytology [place] Category IV Suspicious for Follicular Neoplasm. She subsequently underwent a R lobe hemithyroidectomy in with official pathology revealing a benign adenomatoid nodule with background follicular hyperplasia. She had postoperative calcium and albumin levels assessed which were WNL. She remains off any thyroid hormone supplementation. She has no history of head or neck radiation. She has a family history of thyroid cancer in her niece. She did develop an enlarged lymph node in her L neck. She was referred to Heme- Onc for this, but declined and instead saw ENT. She underwent FNA biopsy at an [facility] 09/2020 with inconclusive results per her report. Apparently also saw Hematology/Oncology at [facility] subsequently, Dr. Mckay but I do not see these records. She also underwent FNA biopsy 12/02 of this at [facility] in 2020 which suggested adipose tissue has been biopsied and not a lymph node. Subsequently she was seeing Dr. Ruelas for this. Review of systems Constitutional: no fevers, chills or weight loss HEENT: no changes in vision Cardiac: No chest pain, discomfort or palpitations. Pulmonary: No SOB GI:No abdominal pain, no nausea or vomiting, no anorexia, no blood in stool : no burning micturition, dysuria or increase in urinary frequency Physical exam General: sitting comfortably in no acute distress HEENT: normocephalic/atraumatic, moist oral mucosa Neck: supple, symmetrical, Cardiac: normal heart sounds Pulm: normal breath sounds B/L, no added breath sounds Abd: not distended, no tenderness Extremities: no edema, no signs of myxedema Neuro: AAO x3, Speech: normal, no facial droop, moving all 4 extremities [facility] Medical History On beta kendal at home Atrial fibrillation Vitamin B 12 deficiency Multinodular thyroid Osteoporosis Vitamin D deficiency Lymphadenopathy of head and neck Neck pain Normal colonoscopy History of mammogram Asthma Hyperlipidemia GERD (gastroesophageal reflux disease) Arrhythmia Surgical History History of surgery History of lumpectomy of both breasts Hx of cholecystectomy History of esophagogastroduodenoscopy (EGD) H/O colonoscopy History of thyroidectomy S/P foot surgery, right History of rotator cuff surgery Carpal tunnel syndrome H/O arthroscopy of right knee History of breast biopsy History of hysterectomy Family History Father CAD (coronary artery disease) CVD (cardiovascular disease) Mother No problems noted. Brother Cancer Sister Liver cancer CVD (cardiovascular disease) Breast cancer Other Mental health disorder Social History Housing: House Alcohol intake: current Alcohol intake frequency: holidays/special occasions only Patient Tobacco Use Status: Former Tobacco user Tobacco use type: Cigarette Cigarettes Per Day: 5 Years Smoked: 35 e-Cigarette/Vaping Use: Never Used service: No Current occupational status: retired Cognitive needs: No Hearing needs: No Vision needs: Yes Physical Exam Vital Signs: Last Vital Signs Pulse 75 06/15/24 14:25 BP 138/80 06/15/24 14:25 BMI result Body Mass Index 34.3 Results Reviewed Results Reviewed: Laboratory Tests 11/05/19 06/06/20 11/17/20 07:20 06:45 08:00 Creatinine Estimated GFR Calcium Magnesium N-Telopeptide X-linked 27 12 22 25-OH Vitamin D Total PTH Intact 05/17/21 06/30/22 12/30/22 07:30 13:20 06:45 Creatinine Estimated GFR Calcium Magnesium N-Telopeptide X-linked 37 37 49 25-OH Vitamin D Total PTH Intact 01/20/23 07/21/23 07/23/23 10:40 11:21 07:03 Creatinine Estimated GFR Calcium Magnesium N-Telopeptide X-linked 49 25-OH Vitamin D Total 62.6 PTH Intact 64 56 12/28/23 01/20/24 02/15/24 09:45 07:19 08:55 Creatinine 0.73 0.65 Estimated GFR > 60 > 60 Calcium 9.7 10.2 Magnesium 1.8 N-Telopeptide X-linked 25-OH Vitamin D Total PTH Intact 03/28/24 06:45 Creatinine Estimated GFR Calcium Magnesium N-Telopeptide X-linked 17 25-OH Vitamin D Total PTH Intact EXAMINATION: US THYROID 12/04 I reviewed the images myself of the ultrasound which do show the 2 lymph nodes, these do not appear abnormal to me, the right-sided 1 is longitudinal in appearance which is reassuring. None of these are greater than 1 cm in measurement. The circular 1 does appear to have faint hilum. CLINICAL INFORMATION: Postprocedural hypothyroidism. COMPARISON: CT soft tissue neck without and with contrast 01/10/2021. Ultrasound-guided thyroid biopsy 12/11/2020. Ultrasound soft tissue of the neck 09/11/2020. Ultrasound-guided thyroid biopsy 02/24/2019. Ultrasound thyroid 12/13/2018. TECHNIQUE: Linear transducer grayscale and color Doppler examination with attention to the region of the thyroid. FINDINGS: SIZE: Measurements of the solitary left thyroid lobe and nodules are given in sagittal, anteroposterior and transverse dimensions respectively. Right Thyroid Lobe: Surgically absent. Left Thyroid Lobe: 4.2 x 1.3 x 1.6 cm, volume 4.6 mL. Previously 3.9 x 1.2 x 1.4 cm, volume 3.4 mL. Parenchyma: The gland echotexture is homogeneous. Thyroid vascularity is increased. Isthmus: 0.3 cm in maximum AP dimension. Previously 0.3 cm. No suspicious thyroid nodule is seen. NODES: Right neck level III node measures 0.9 cm in transverse dimension and appears borderline with no demonstrable fatty hilum or vascularity. Previous exam demonstrated a right level III node measuring 0.9 cm. Left neck level II node measures 0.8 cm with cortical thickening and echogenic hilum. Previous exam of 09/11/2020 demonstrated a left neck level IIa node measuring 0.8 cm. US/US thyroid IMPRESSION: The right thyroid lobe is surgically absent. No suspicious left thyroid nodule is identified. Right neck level III node measures 0.9 cm in transverse dimension and appears borderline with no demonstrable fatty hilum or vascularity. Previous exam demonstrated a right level III node measuring 0.9 cm. Left neck level II node measures 0.8 cm with cortical thickening and echogenic hilum. Previous exam of 09/11/2020 demonstrated a left neck level IIa node measuring 0.8 cm. EXAMINATION: CT SOFT TISSUE NECK WITHOUT AND WITH CONTRAST 2020 CLINICAL INFORMATION: Generalized enlargement of the lymph nodes. COMPARISON: Soft tissue neck ultrasound 09/11/2020. TECHNIQUE: Before and after the intravenous administration of 60 mL of Omnipaque 350 intravenous contrast helical imaging was performed in the axial plane with generation of coronal and sagittal reformatted images. This CT examination was performed using dose optimization techniques as appropriate, variously including the following: *Automated exposure control *Adjustment of mA and/or kV according to patient size (this includes techniques or standardized protocols for targeted exams where dose is matched to indication/reason for exam; i.e. extremities or head) *Use of iterative reconstruction technique DLP: 288 mGy-cm FINDINGS: The right lobe the thyroid gland is surgically absent. No abnormal soft tissue mass or enhancement at the site of surgery. There are no pathologically enlarged cervical lymph nodes. No mediastinal or axillary adenopathy is visualized within the [id number] of this examination. Spaces are symmetric. Parapharyngeal and retromaxillary fat is preserved. Administration Specialist spaces are symmetric. The parotid and submandibular glands are normal. The tongue base and epiglottis are normal. Preepiglottic fat is preserved. Glottic and subglottic airways are widely patent. Lung apices are clear. Scattered atheromatous calcification involves the aortic arch apex. Cervical carotid and vertebral arteries are patent. Internal jugular veins fill symmetrically. There is no acute osseous finding. There is degenerative arthrosis at C5-C6 and slight anterolisthesis of C4 on C5 related to facet degenerative changes at this level. Grossly no evidence of canal compromise. Limited visualization of the posterior fossa reveals no abnormal finding. The skull base is intact. No mastoid middle ear effusion. A. Retention cysts are visualized within the maxillary sinuses. CT/CT soft tissue neck wo/w con IMPRESSION: Chronic postoperative changes of a right thyroid lobectomy. No abnormal soft tissue mass or enhancement of the sinus surgery or elsewhere within the [id number] of this examination. No pathologically enlarged cervical lymph nodes. US SOFT TISSUE OF THE NECK 09/03 CLINICAL INFORMATION: Generalized enlarged lymph nodes. Status post right thyroidectomy. COMPARISON: Ultrasound soft tissue head/neck thyroid dated 12/13/2018. TECHNIQUE: Linear transducer grayscale and color Doppler examination of the solitary left thyroid and surrounding soft tissue. FINDINGS: LEFT NECK: 1. Level 5B lymph node measuring 2.0 x 0.70 x 1.8 cm. Abnormal appearance with peripheral color flow. 2. Level 5B lymph node measuring 1.4 x 0.57 x 1.5 cm. Normal appearance with peripheral flow 3. Level 2A lymph node measuring 1.3 x 0.61 x 0.82 cm. Oval-shaped with central echogenic medulla and no abnormal vascularity. 4. Level 2A lymph node measures 1.5 x 0.45 x 0.91 cm and has normal ultrasound features. 5. Level 7 lymph node measures 1.1 x 0.23 x 0.42 cm. It has normal ultrasound features. RIGHT NECK: 1. Level 2A lymph node measures 1.2 x 0.54 x 1.2 cm. It has normal ultrasound features. 2. Level 3 lymph node measures 1.1 x 0.47 x 0.82 cm. It has normal ultrasound features. 3. Level 3 lymph node measures 0.91 x 0.30 x 0.74 cm. It has normal ultrasound features. 4. Level 1A lymph node measures 0.90 x 0.62 x 0.74 cm. It has normal ultrasound features. US/US soft tiss head and/or neck IMPRESSION: 1. Two abnormal size lymph nodes seen in the right neck. 2. The rest of the right and left neck lymph nodes have normal lymph node features by ultrasound. Assessment & Plan Assessment & Plan (1) Osteoporosis: Code(s): M81.0 - Age-related osteoporosis without current pathological fracture Category: Medical Qualifiers: Osteoporosis type: age-related Presence of current pathological fracture: without current pathological fracture Qualified Code(s): M81.0 - Age- related osteoporosis without current pathological fracture Plan: Patient with a history of osteoporosis diagnosed in 2013 who has history of GERD, long-term PPI use, many years of steroid use in the past due to chronic sinusitis. She was on Prolia from May 2019 to July 2023 and received 9 injection/4 years of therapy. Her most recent bone density from December 2022 showed 3.7% decrease in the lumbar spine with T-score of-2.2. There was 2.4% increase in the right femoral neck bone density with T-score of-1.9. 4.7 increase in bone density in the left femoral neck with T-score of -1.9. Total femoral neck T-score was -1.4. She received Reclast infusion in January 2024. Also her bone density at the left forearm showed T-score of-3.4 which is severe osteoporosis. However this was the 1st time this was done. She has not had any fractures. With this she is allergic to 1 of the proteins in dairy, she is not taking any dairy and she is only taking 600 mg of calcium which is not adequate. I have asked her to increase her calcium supplementation to 600 mg twice daily. She is also only taking 400 units of vitamin-D, I have asked her to increase that 2000 units daily. She is good with activity. Her last urine NTX from March 2024 is 17 which is suppressed showing good response to Reclast, previously it was high at 49 in July 2023. At this point she is due for repeat bone density in January 2025, I will have her repeat a urine NTX in December 2024 as well. After she has had all of this done , she will follow up with me in January 2025 to see if she needs another Reclast infusion. I have asked her to contact me sooner if she has any fractures. Plan: -bone density January 2025 including forearm -labs including urine NTX for December 2024 -follow up with me in January 2025 to consider another Reclast infusion -vitamin-D 1000 units daily -calcium 600 mg daily in supplements -encouraged active exercise regimen (2) Multinodular thyroid: Comment: Status post partial thyroidectomy 2019 Code(s): E04.2 - Nontoxic multinodular goiter Category: Medical Plan: Patient with history of right-sided thyroid nodules discovered in 2018, which was subsequently biopsied and came back as suspicious for follicular neoplasm in 2018, who subsequently underwent right hemithyroidectomy with Dr. Sondra Mcpherson at [facility] in 2019 revealing benign pathology. Subsequently she developed abnormal lymphadenopathy in the neck per previous ultrasounds. An abnormal lymph node noted on the left side of the neck was biopsied twice once at outside hospital in 2020 and then again at [facility] in November of 2020. The 1st result was not conclusive and the 2nd 1 showed that adipose tissue has been biopsied with no sample of lymph node in it. She was subsequently following with Hematology/Oncology for this with Dr. Mckay. However has not had any recent follow up. She denies any compressive symptoms. On my exam I do not feel any abnormal lymphadenopathy. Plan: -ordered ultrasound of the neck/thyroid Plan I spent 30 minutes in reviewing the record, seeing the patient and documenting in the medical record. Orders: Orders 2 US thyroid Today E04.2 - Nontoxic multinodular goiter Phosphorus 12/13/24 M81.0 - Age-related osteoporosis without current pathological fracture Collagen Crosslinks NTX 12/13/24 M81.0 - Age-related osteoporosis without current pathological fracture Calcium, Ionized 12/13/24 M81.0 - Age-related osteoporosis without current pathological fracture Alkaline Phosphatase Bone 12/13/24 M81.0 - Age-related osteoporosis without current pathological fracture Creatinine Urine 12/13/24 M81.0 - Age-related osteoporosis without current pathological fracture XR DEXA appendicular skeleton 01/12/25 M81.0 - Age-related osteoporosis without current pathological fracture XR DEXA axial skeleton 01/12/25 M81.0 - Age-related osteoporosis without current pathological fracture XR DEXA appendicular skeleton 01/12/25 M81.0 - Age-related osteoporosis without current pathological fracture XR DEXA axial skeleton 01/12/2581.0 - Age-related osteoporosis without current pathological fracture Thyroid Stimulating Hormone 12/13/2481.0 - Age-related osteoporosis without current pathological fracture Free T4 (Free Thyroxine) 12/13/2481.0 - Age-related osteoporosis without current pathological fracture Albumin Level 12/13/2481.0 - Age-related osteoporosis without current pathological fracture Calcium 12/13/2481.0 - Age-related osteoporosis without current pathological fracture Vitamin D 25-OH Total 12/13/24.0 - Age-related osteoporosis without current pathological fracture Parathyroid Hormone Intact 12/13/24.0 - Age-related osteoporosis without current pathological fracture Calcium, Random Urine 12/13/24.0 - Age-related osteoporosis without current pathological fracture Basic Metabolic Panel 12/13/24.0 - Age-related osteoporosis without current pathological fracture Patient Instructions: Please ensure you are taking 1000 mg of calcium in your diet / supplement, if you are not getting enough from diet do 600 mg twice daily of calcium Take 1000 units of vitamin D daily Keep up the walking Weight bearing exercise is good for bones Do blood work and urine test in December 2024 before your follow up with me in January 2025 Do thyroid ultrasound as soon as you can schedule it Once I get the results I will communicate through the portal with you If you have any fracture, pls get in touch through the portal Coding Level of Care Code Est Pt Level 4 (17038) Diagnoses Age-related osteoporosis without current pathological fracture M81.0 Osteoporosis type: age-related Presence of current pathological fracture: without current pathological fracture Multinodular thyroid E04.2 Time Spent (min) 30
== END 2024-06-15 15:37 | disposition home or self-care (01) ==
PROVIDERS: PCP Physician Assistant; Visit Provider Student in an Organized Health Care Education/Training Program
DX: M81.0 Age-related osteoporosis without current pathological fracture (principal); E04.2 Nontoxic multinodular goiter
CPT/HCPCS: 99214

== ENCOUNTER → 2024-06-15 14:23 | Outpatient (BNVA) | payer MEDICARE, SELFPAY | PROVIDERS: PCP Physician Assistant; Visit Provider Student in an Organized Health Care Education/Training Program | DX: M81.0 Age-related osteoporosis without current pathological fracture (principal); E04.2 Nontoxic multinodular goiter | CPT/HCPCS: 99212 ==

== ENCOUNTER 2024-06-21 13:50 | Outpatient (REF) | payer MEDICARE, SELFPAY ==
--- NOTE | ~2024-06-21 | US_ITS ---
EXAMINATION: US THYROID CLINICAL INFORMATION: Nontoxic multinodular goiter. History of right lobectomy, has history of cervical adenopathy. Please look at all neck levels for lymph nodes. COMPARISON: Thyroid ultrasound 03/31/2023. CT soft tissue neck without and with contrast 01/10/2021. Ultrasound-guided biopsy lymph node 12/11/2020. Ultrasound soft tissue of the neck 09/11/2020. Ultrasound-guided biopsy 02/24/2019. TECHNIQUE: Linear transducer grayscale and color Doppler examination with attention to the region of the thyroid. FINDINGS: SIZE: Measurements of the solitary left thyroid lobe and nodules are given in sagittal, anteroposterior and transverse dimensions respectively. Right Thyroid Lobe: Surgically absent. Left Thyroid Lobe: 3.9 x 1.4 x 1.6 cm, volume 4.6 mL. Previously 4.2 x 1.3 x 1.6 cm, volume 4.6 mL. Parenchyma: The gland echotexture is homogeneous. Thyroid vascularity is normal. Isthmus: 0.3 cm in maximum AP dimension. Previously 0.3 cm. No suspicious thyroid nodule is seen. NODES: Targeted ultrasound images were obtained by the end lathe operator of the area of concern as indicated by the patient in the lower right neck posteriorly approximately at level 5B demonstrated a hypoechoic, hypervascular lesion with possible septations measuring approximately 4.3 x 1.5 x 3.9 cm of indeterminate etiology. Radiologist was not in attendance. Images were later provided for interpretation. Right neck level 2 node measures 0.9 x 0.6 x 0.6 cm Right neck level 2 node measures 1.2 x 0.6 x 1.4 cm Right neck level 3 node measures 0.9 x 0.4 x 0.9 cm Right neck level 3 node measures 1.5 x 0.4 x 1.1 cm and appears normal. Previous exam of 03/31/2023 demonstrated a right level 3 abnormal appearing node measuring 0.9 cm in transverse dimension. Left neck level 2 node measures 1.3 x 0.5 x 1.3 cm and appears abnormal with poorly visualized hilum. Left neck level 2 node measures 1.9 x 0.5 x 1.2 cm. Previous exam demonstrated a left level 2 node measuring 0.8 cm. Additional findings: Targeted ultrasound images were obtained by the end lathe operator of the area of concern as indicated by the patient in the lower right neck posteriorly approximately at level 5B demonstrated a hypoechoic, hypervascular lesion with possible septations measuring approximately 4.3 x 1.5 x 3.9 cm . Radiologist was not in attendance. Images were later provided for interpretation. US/US thyroid IMPRESSION: 1. Right thyroid lobe surgically absent. No suspicious left thyroid nodules. 2. A 4.3 x 1.5 x 3.9 cm hypoechoic, hypervascular lesion in the area of concern indicated by the patient in the lower right neck posteriorly at approximately level 5B was identified on the prior exam. Correlation with clinical exam recommended to determine further management including possible surgical consultation, biopsy and/or additional imaging with MRI. 3. Bilateral cervical lymph nodes, some of which appear abnormal. This study was presented to me on Jul 05 2024 for interpretation. PSA staff will provide results to referring provider at this time. ACR TI-RADS RECOMMENDATION REFERENCE: Ultrasound-guided fine-needle aspiration, follow up ultrasound, no further followup. * TR1 (0 point) and TR2 (2 points): No FNA or followup * TR3 (3 points): FNA if more than or equal to 2.5 cm in maximum dimension, follow up ultrasound in 1, 3 and 5 years if 1.5 to 2.4 cm in maximum dimension. * TR4 (4-6 points): FNA if more than or equal to 1.5 cm in maximum dimension, follow up ultrasound in 1, 2, 3 and 5 years if 1 to 1.4 cm in maximum dimension. * TR5 (more than or equal to 7 points): FNA if more than or equal to 1 cm in maximum dimension, follow up ultrasound every year for 5 years if 0.5 to 0.9 cm in maximum dimension. * TR3, TR4 or TR5 nodules that are below the size threshold for follow up receive no followup. Electronically signed by: Tamia Lazo MD 07/05/2024 02:28 PM EDT
== END 2024-06-21 13:51 | disposition home or self-care (01) ==
LOC: HO.HMGCX 13:50
PROVIDERS: PCP Physician Assistant; Visit Provider Student in an Organized Health Care Education/Training Program
DX: E04.2 Nontoxic multinodular goiter (principal)
CPT/HCPCS: 76536

== ENCOUNTER 2024-07-04 12:31 | Outpatient (REF) | payer MEDICARE, SELFPAY ==
--- NOTE | ~2024-07-04 | US_ITS ---
EXAMINATION: US RETROPERITONEAL LIMITED (RENAL ONLY) CLINICAL INFORMATION: Frequency of micturition. COMPARISON: CT abdomen and pelvis 01/31/2023. Ultrasound abdomen 04/08/2018. TECHNIQUE: Real-time imaging of the kidneys. FINDINGS: RIGHT KIDNEY: 10.6 x 4.4 x 5.6 cm (SAG x AP x TRV). The kidney is normal in size, contour, and echogenicity. Renal cortical thickness is normal. No calculi or focal parenchymal lesions. No hydronephrosis. LEFT KIDNEY: 11.2 x 4.6 x 4.7 cm (SAG x AP x TRV). The kidney is normal in size, contour, and echogenicity. Renal cortical thickness is normal. No renal calculi or hydronephrosis. A benign mid renal 2.0 cm Bosniak class I renal cyst is noted which requires no additional imaging or follow up. No solid renal masses are seen. US/US renal BI IMPRESSION: Negative exam. Electronically signed by: Glenroy Pendleton MD 08/23/2024 09:08 PM [facility]
== END 2024-07-04 12:32 | disposition home or self-care (01) ==
LOC: HO.HMGCX 12:31
PROVIDERS: PCP Physician Assistant; Visit Provider Urology
DX: R35.0 Frequency of micturition (principal)
CPT/HCPCS: 76775

== ENCOUNTER 2024-08-04 07:52 | Outpatient (REF) | payer MEDICARE, SELFPAY ==
[2024-08-04 10:04] LABS: Hematocrit 39.5 % (37.0-47.0); Hemoglobin 12.5 g/dl (12.0-16.0); Mean Corpuscular HGB Conc 31.6 g/dl (31.0-35.0); Mean Corpuscular Hemoglobin 27.1 pg (27.0-33.0); Mean Corpuscular Volume 85.5 fL (80.0-98.0); Mean Platelet Volume 9.8 fL (9.4-12.3); Platelet Count 294 X10*3/uL (160-400); Red Blood Count 4.62 X10*6/uL (4.20-5.50); Red Cell Distribution Width 13.6 % (11.0-16.0); White Blood Count 8.3 X10*3/uL (4.8-10.8)
[2024-08-04 10:37] LABS: Alanine Aminotransferase 24 U/L (0-31); Alkaline Phosphatase 100 U/L (39-117); Anion Gap 11 (12-20); Aspartate Amino Transferase 23 U/L (5-31); Bilirubin Total 0.3 mg/dL (0.0-1.0); Blood Urea Nitrogen 20 mg/dL (9-16); Calcium 9.5 mg/dL (8.4-10.2); Carbon Dioxide 29 mmol/L (22-29); Chloride 104 mmol/L (96-108); Cholesterol 199 mg/dL (<200); Estimated Glomerular Filt Rate > 60; Glucose Fasting 99 mg/dL (60-99); HDL Cholesterol 68 mg/dL (>40); LDL Cholesterol Calculated 117 mg/dL (<100); Potassium 4.1 mmol/L (3.3-5.1); Sodium 140 mmol/L (135-145); TSH reflex Free T4 3.45 uIU/mL (0.32-4.0); Total Protein 6.7 g/dL (6.5-8.0); Triglycerides 73 mg/dL (<150)
== END 2024-08-04 07:53 | disposition home or self-care (01) ==
LOC: HO.HMGCLDS 07:52
PROVIDERS: PCP Physician Assistant; Visit Provider Physician Assistant
DX: E04.2 Nontoxic multinodular goiter (principal); I48.0 Paroxysmal atrial fibrillation; E78.2 Mixed hyperlipidemia
CPT/HCPCS: 36415; 80053; 80061; 84443; 85027

== ENCOUNTER 2024-08-09 08:21 | Outpatient (AMB) | payer MEDICARE, SELFPAY ==
--- NOTE | 2024-08-09 08:34 | A.OFFPC_ITS ---
Vital Signs 3 08/09/24 08:35 Height 5 ft 2 in Weight 180 lb 6 oz BMI 33.0 BP 140/72 H Blood Pressure Location Lt brachial Position Sitting Pulse 75 Pulse Source Pulse Oximeter Pulse Oximetry (%) 96 Oxygen Delivery Method Room Air Intake Visit Reasons: f/u AFIB/ Intake Note: Patient is here to follow up on AFib. Pt decline flu shot today. Boring Inspector Required: No Shuttle Repairer: Not Required per policy Accompanied by: Self / Same As Patient Allergies oxycodone [From Percocet] Allergy (Mild, Verified 08/09/24 08:42) NAUSEA,HIVES,THROWING UP/ codeine [Codeine] Adverse Reaction (Mild, Verified 08/09/24 08:42) Constipation dairy protein Allergy (Severe, Uncoded 08/09/24 08:42) Diarrhea dairy,eggs, wheat,nuts,mold Allergy (Severe, Uncoded 08/09/24 08:42) Diarrhea Medication List - Last Reconciled 08/09/24 by Louis Quijano PA-C albuterol sulfate 90 mcg/actuation (ProAir HFA) 2 inhalations inhalation QID PRN calcium carbonate-vitamin D3 600 mg-10 mcg (400 unit) (Calcium with Vitamin D) 1 tab PO DAILY celecoxib 200 mg PO DAILY 10 days cyanocobalamin (vitamin B-12) 1,000 mcg IM .twice a month gabapentin 200 mg PO BEDTIME PRN lansoprazole 30 mg PO DAILY montelukast 10 mg PO DAILY 90 days syringe with needle (Easy Touch) Use to inject twice a month Tobacco use date assessed: 08/09/24 Fall risk assessment: No Falls in past year Last assessed Fall Risk: 08/09/24 Dental Screening Dental Screen Date: 02/02/24 HPI f/u AFIB/ 2 HPI0 Details Patient is 69-year-old female here today for follow-up visit Patient's past medical history significant for AFib, osteoporosis, history of foot surgery, hyperlipidemia, GERD, 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 Concern--> she reports she continues to have left-sided foot pain he is seeing a environmental compliance specialist about. She has gotten injections though do not seem to be helping. She also has lower back pain and wonders if this can be related. .. AFIB/ SVT: Patient is followed by customs entry writer. (DR Edmond) Continues on rate control with metoprolol. Has underwent a cardioversion which seems to have been successful. She is stopped flecainide. . She currently is not on any anticoagulation at this time. She will ask her customs entry writer about anticoagulation. .. Hyperlipidemia: Continues to manage her cholesterol with lifestyle and dietary modifications. Lipid panel has much improved, she reports no change in her diet though since being taken off of flecainide her cholesterol has improved .. Osteoporosis: Currently taking Prolia on a every 6 months basis through Endocrine. She has establish care with endocrinology and has been started on vitamin-D and calcium supplementation. Laboratory Tests 12/19/21 12/30/22 01/31/23 08:28 07:33 11:33 RBC 4.84 Hgb Creatinine Random Glucose Fasting Glucose Cholesterol 249 226 LDL Cholesterol, C alc 25-OH Vitamin D To joe TSH 07/21/23 01/20/24 08/04/24 11:21 07:19 07:58 RBC 4.54 Hgb 12.5 12.5 Creatinine 0.65 0.72 Random Glucose 89 Fasting Glucose 99 Cholesterol 211 H 199 LDL Cholesterol, C alc 117 H 25-OH Vitamin D To joe 62.6 TSH 2.98 3.45 PFSH Medical History On beta kendal at home Atrial fibrillation Vitamin B 12 deficiency Multinodular thyroid Osteoporosis Vitamin D deficiency Lymphadenopathy of head and neck Neck pain Normal colonoscopy History of mammogram Asthma Hyperlipidemia GERD (gastroesophageal reflux disease) Arrhythmia Surgical History History of surgery History of lumpectomy of both breasts Hx of cholecystectomy History of esophagogastroduodenoscopy (EGD) H/O colonoscopy History of thyroidectomy S/P foot surgery, right History of rotator cuff surgery Carpal tunnel syndrome H/O arthroscopy of right knee History of breast biopsy History of hysterectomy Family History Father CAD (coronary artery disease) CVD (cardiovascular disease) Mother No problems noted. Brother Cancer Sister Liver cancer CVD (cardiovascular disease) Breast cancer Other Mental health disorder Social History Housing: House Alcohol intake: current Alcohol intake frequency: holidays/special occasions only Patient Tobacco Use Status: Former Tobacco user Tobacco use type: Cigarette Cigarettes Per Day: 5 Years Smoked: 35 e-Cigarette/Vaping Use: Never Used service: No Current occupational status: retired Cognitive needs: No Hearing needs: No Vision needs: Yes Questionnaire Thrive Questionnaire Date Thrive assessed: 02/02/24 ELIUD-7 AMB Questionnaire ELIUD-7 Date ELIUD - 7 assessed: 02/02/24 Source: Developed by Drs. Javier Bernal, Neisha Mejia, Gaurav Gardner and colleagues, with an educational samantha from [employer] environment. Review of Systems Const Denies headache(s) Eyes Denies loss of vision ENT Denies vertigo, Denies dizziness, Denies headache(s) and Denies sore throat Card Denies chest pain, Denies leg edema and Denies lightheadedness Resp Denies cough, Denies hemoptysis and Denies wheezing GI Denies abdominal pain, Denies melena, Denies constipation, Denies diarrhea and Denies vomiting Denies urinary frequency, Denies dysuria and Denies urinary urgency Musc Denies arthralgias, Denies joint swelling, Denies numbness and Denies tingling Neuro Denies Abnormal speech present, Denies behavioral changes, Denies vertigo, Denies dizziness, Denies headache(s), Denies loss of vision, Denies memory loss, Denies numbness and Denies tingling Psych Denies anxiety, Denies behavioral changes, Denies depression, Denies memory loss and Denies panic attacks Luis Enrique/Lymph Denies easy bleeding and Denies easy bruising Aller/Immun Denies wheezing Physical exam (Primary Care) Vital Signs: Last Vital Signs Pulse 75 08/09/24 08:35 BP 140/72 H 08/09/24 08:35 Pulse Ox 96 08/09/24 08:35 Oxygen Delivery Method Room Air 08/09/24 08:35 BMI result Body Mass Index 33.0 Tobacco/Smoking Status: Tobacco use Status Tobacco use date assessed 08/09/24 08/09/24 08:40 Patient Tobacco Use Status Former Tobacco user 08/09/24 08:40 Tobacco use type Cigarette 08/09/24 08:40 e-Cigarette/Vaping Use Never Used 08/09/24 08:40 Thrive Assessment: Date of Thrive Assessment Date Thrive assessed 02/02/24 08/09/24 08:40 Const General: healthy appearing, no acute distress, alert and awake Nutritional Appearance: well nourished Orientation/consciousness: oriented to person, oriented to place and oriented to time HENMT Ears: TM's normal bilaterally General nose exam: Normal nasal mucous membranes and turbinates present Eyes Conjunctivae: conjunctivae normal Sclerae: sclerae normal Pupils: Equal, round and reactive pupils present Neck Neck: Yes no lymphadenopathy and Yes no JVD Thyroid: Thyroid normal Carotids: no bruits Resp Effort & Inspection: normal respiratory effort and not tachypneic Auscultation: no crackles, no rales, no rhonchi and no wheezes Cardio Rate: regular rate Rhythm: regular rhythm Heart sounds: no murmurs and normal S1 and S2 GI Palpation (GI): Soft to palpation, nontender, no hepatomegaly and no splenomegaly Auscultation: normal bowel sounds Skin General skin exam: no rashes or lesions noted and dry skin Neuro General: oriented to person, oriented to place and oriented to time Cranial nerves: Yes Equal, round and reactive pupils present Speech: No Abnormal speech present Gait exam (Neuro): Normal gait present Motor exam (neuro): no tremor noted Extrem Right upper extremity: full ROM Left upper extremity: full ROM Right lower extremity: full ROM; no edema Left lower extremity: full ROM; no edema Ankle/foot/toe images: 2 1. PAIN LOCATED OVER THE TOP OF THE FOOT Psych Mental Status: mental status grossly normal Speech and movement: Normal speech and movement present Affect: normal affect Attitude: cooperative Thought process: Normal thought process present Coding Level of Care Code Est Pt Level 4 (47474) Diagnoses Paroxysmal atrial fibrillation I48.0 Atrial fibrillation type: paroxysmal Age-related osteoporosis without current pathological fracture M81.0 Osteoporosis type: age-related Presence of current pathological fracture: without current pathological fracture Multinodular thyroid E04.2 Mixed hyperlipidemia E78.2 Hyperlipidemia type: mixed hyperlipidemia Lumbar radiculitis M54.16 Assessment & Plan Assessment & Plan (1) Atrial fibrillation: Code(s): I48.91 - Unspecified atrial fibrillation Category: Medical Qualifiers: Atrial fibrillation type: paroxysmal Qualified Code(s): I48.0 - Paroxysmal atrial fibrillation Plan: Patient continues to follow cardiology. She rarely has any heart palpitations. She was previously on flecainide and anticoagulation though seems to have side effects. (2) Osteoporosis: Code(s): M81.0 - Age-related osteoporosis without current pathological fracture Category: Medical Qualifiers: Osteoporosis type: age-related Presence of current pathological fracture: without current pathological fracture Qualified Code(s): M81.0 - Age- related osteoporosis without current pathological fracture Plan: Patient continues to follow Endocrinology in his on calcium and vitamin-D supplementation. (3) Multinodular thyroid: Comment: Status post partial thyroidectomy 2019 Code(s): E04.2 - Nontoxic multinodular goiter Category: Medical Plan: Patient followed by endocrinology. (4) Hyperlipidemia: Comment: intolerant to Simvastatin, body aches-- Code(s): E78.5 - Hyperlipidemia, unspecified Category: Medical Qualifiers: Hyperlipidemia type: mixed hyperlipidemia Qualified Code(s): E78.2 - Mixed hyperlipidemia Plan: Most recent lipid panel showing improved total cholesterol and LDL. She believes that her cholesterol elevation was due to side effects of medication. She will continue working on lifestyle and dietary modifications. Goal LDL is to remain below 130 (5) Lumbar radiculitis: Code(s): M54.16 - Radiculopathy, lumbar region Category: Medical Plan: Patient continues to have left lower extremity pain particularly and top of for foot. She does report having chronic back pain. She is willing to get x-rays of her back and try physical therapy for possible lumbar disc herniation. Does seem to have a L5-S1 distribution of her pain Orders: Orders 2 Vitamin B12 and Folate 6 Months E53.8 - Deficiency of other specified B group vitamins Vitamin D 25-OH Total 6 Months E55.9 - Vitamin D deficiency, unspecified UA CC w/rflx Micro + Cult 6 Months E04.2 - Nontoxic multinodular goiter, R30.0 - Dysuria Comprehensive [place]. Panel Fast 6 Months E78.2 - Mixed hyperlipidemia Lipid Panel 6 Months E78.2 - Mixed hyperlipidemia XR lumbar spine 2-3V Today M54.16 - Radiculopathy, lumbar region PT Evaluation and Treatment Today M51.9 - Unspecified thoracic, thoracolumbar and lumbosacral intervertebral disc disorder, M54.16 - Radiculopathy, lumbar region TSH reflex Free T4 6 Months E04.2 - Nontoxic multinodular goiter
[2024-08-09 08:35] VITALS: BP 140/72; PULSE 75; O2SAT 96; BMI 33.0
== END 2024-08-09 09:06 | disposition home or self-care (01) ==
PROVIDERS: PCP Physician Assistant; Visit Provider Physician Assistant
DX: I48.0 Paroxysmal atrial fibrillation (principal); M81.0 Age-related osteoporosis without current pathological fracture; E04.2 Nontoxic multinodular goiter; E78.2 Mixed hyperlipidemia; M54.16 Radiculopathy, lumbar region

== ENCOUNTER 2024-08-09 08:21 | Outpatient (REF) | payer MEDICARE, SELFPAY ==
--- NOTE | ~2024-08-09 | XR_ITS ---
EXAMINATION: XR LUMBOSACRAL SPINE CLINICAL INFORMATION: Radiculopathy, lumbar region M54.16. COMPARISON: XR Lumbar spine 04/02/2015 (report only). TECHNIQUE: Three views of the lumbosacral spine. FINDINGS: There is normal bone mineralization. No fracture, compression deformity, or suspicious focal bony abnormality. Limbus vertebra of L4 again noted. There is stable mild irregularity to the superior endplate of L2. There is a trace levoconvex scoliosis, apex at L3. There is a normal lordosis. There is a grade 1, 5 mm anterolisthesis of L4 on L5. Alignment is otherwise anatomic. Early disc space narrowing L2-3 and L3-4. Mild to moderate degenerative facet and disc changes L4-5 and L5-S1. No definite pars defects. The sacrum and SI joints appear normal. There are vascular calcifications and cholecystectomy clips in the soft tissues. XR/XR lumbar spine 2-3V IMPRESSION: 1. No acute findings of the lumbar spine. 2. Degenerative spondylosis most significant at L4-5 and L5-S1. 3. Degenerative grade 1 anterolisthesis L4 on L5. Electronically signed by: Franklyn Wang MD 09/01/2024 01:40 PM [facility] [place]
== END 2024-08-09 08:22 | disposition home or self-care (01) ==
LOC: HO.HMGCX 08:21
PROVIDERS: PCP Physician Assistant; Visit Provider Physician Assistant
DX: I48.0 Paroxysmal atrial fibrillation (principal); M81.0 Age-related osteoporosis without current pathological fracture; E04.2 Nontoxic multinodular goiter; E78.2 Mixed hyperlipidemia; M54.16 Radiculopathy, lumbar region
CPT/HCPCS: 72100; 99212

== ENCOUNTER → 2024-08-09 10:44 | Outpatient (BNV) | payer MEDICARE, SELFPAY | PROVIDERS: PCP Physician Assistant; Visit Provider Radiology Diagnostic Radiology | DX: M54.16 Radiculopathy, lumbar region (principal) | CPT/HCPCS: 72100 ==

== ENCOUNTER 2024-08-15 10:17 | Outpatient (AMB) | payer MEDICARE, SELFPAY ==
--- NOTE | 2024-08-14 17:13 | A.OFFVIS_ITS ---
Intake Visit Reasons: Cystoscopy/Ultrasound Intake Note: Patient is Present for Cystoscopy/US Results Urology Med: None Antibiotic Allergy: None Blood Thinner: Aspirin Patient states she did not take or try Vesicare because she states that she is doing ok with urination, only feels pressure when she knows she has been been holding her urine in No current complaints of pain/Discomfort in bladder URO- G Disposable Cystoscope lot:[id number] exp:12/23/2026 Business Applications Analyst Required: No Accompanied by: Self / Same As Patient Allergies oxycodone [From Percocet] Allergy (Mild, Verified 08/15/24 11:20) NAUSEA,HIVES,THROWING UP/ codeine [Codeine] Adverse Reaction (Mild, Verified 08/15/24 11:20) Constipation dairy protein Allergy (Severe, Uncoded 08/15/24 11:20) Diarrhea dairy,eggs, wheat,nuts,mold Allergy (Severe, Uncoded 08/15/24 11:20) Diarrhea Medication List - Last Reconciled 08/15/24 by Erickson Dunn MD albuterol sulfate 90 mcg/actuation (ProAir HFA) 2 inhalations inhalation QID PRN aspirin 325 mg PO DAILY calcium carbonate-vitamin D3 600 mg-10 mcg (400 unit) (Calcium with Vitamin D) 1 tab PO DAILY celecoxib 200 mg PO DAILY 10 days cyanocobalamin (vitamin B-12) 1,000 mcg IM .twice a month gabapentin 200 mg PO BEDTIME PRN lansoprazole 30 mg PO DAILY montelukast 10 mg PO DAILY 90 days syringe with needle (Easy Touch) Use to inject twice a month HPI Comments Details: 08/15/24--Clinton is a 68-year-old female who presents to the office for FU, diagnosed with urothelial papilloma cystoscopy TURBT on 03/10/23, here for surveillance cystoscopy. She has lower urinary tract symptoms urgency, behavioral modification as well as VESIcare was prescribed. The patient states that she has not been taking the VESIcare she has been doing Kegel's and has cut out the caffeine from her diet. I have reviewed renal ultrasound. Cystoscopy today-findings: No suspicious bladder lesions. Will send urine for cytology follow-up in 1 year, surveillance cystoscopy, renal ultrasound prior. renal US 07/04/24--official auto body man pending, reviewed imaging, small simple cyst left kidney. 09/09/23--PMH--On beta kendal, Atrial fibrillation, Osteoporosis, Asthma, Hyperlipidemia, GERD (gastroesophageal reflux disease) Arrhythmia. 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 The entire lesion was removed as noted in the pathology report that the specimen included muscle. The patient states she is having increased urinary frequency that is bothersome. Discussed watch caffeine intake, discussed elevated BMI can impact LUTS, will trial vesicare 10 mg daily, will send surveillance urine c/s. Will continue to monitor with urine analysis and surveillance cystoscopy for up to 8 years. [facility] Medical History On beta kendal at home Atrial fibrillation Vitamin B 12 deficiency Multinodular thyroid Osteoporosis Vitamin D deficiency Lymphadenopathy of head and neck Neck pain Normal colonoscopy History of mammogram Asthma Hyperlipidemia GERD (gastroesophageal reflux disease) Arrhythmia Surgical History History of surgery History of lumpectomy of both breasts Hx of cholecystectomy History of esophagogastroduodenoscopy (EGD) H/O colonoscopy History of thyroidectomy S/P foot surgery, right History of rotator cuff surgery Carpal tunnel syndrome H/O arthroscopy of right knee History of breast biopsy History of hysterectomy Family History Father CAD (coronary artery disease) CVD (cardiovascular disease) Mother No problems noted. Brother Cancer Sister Liver cancer CVD (cardiovascular disease) Breast cancer Other Mental health disorder Social History Housing: House Alcohol intake: current Alcohol intake frequency: holidays/special occasions only Patient Tobacco Use Status: Former Tobacco user Tobacco use type: Cigarette Cigarettes Per Day: 5 Years Smoked: 35 e-Cigarette/Vaping Use: Never Used service: No Current occupational status: retired Cognitive needs: No Hearing needs: No Vision needs: Yes Office Procedures Cystoscopy Consent Discussed risk and benefit or proposed procedure with the patient. Information consent for procedure given to the patient. Discussed technical aspects, risks, benefits and alternatives in full. Addressed all of the patient's questions and concerns regarding the procedure. The patient demonstrated knowledge and understanding. They wish to proceed with this procedure. Preparation The patient was prepped in the usual manner. A figure clerk was present and in the room. Genitalia was prepped with betadine solution in a sterile manner. Lidocaine Jelly 2% was placed into the urethra and 16Fr flexible Olympus cystoscope was inserted into the meatus after adequate lubrication. Procedure Time out per protocol performed. Bladder Inspection Bladder Inspection: The bladder was inspected in its entirety with utilization retroflexion displaying: Tumor(s): no suspicious bladder lesions visualized Trabeculation: NA Mucosal Erthema: NA Orifices: normal shape and position Urethra: normal Cystoscopy findings: WNL, no suspicious bladder lesions visualized [id number] DISPOSABLE SCOPE URO-G FLEXIBLE SCOPE Procedure code (CPT) selection complete Office Meds lidocaine HCl 2 % mucosal jelly in applicator Performing Provider: Erickson Dunn MD Performing Location: [facility] Administered by: CHRISTELLE Rosas on 08/15/24 11:31 Dose Route Admin Location Dispensed Lot Number Expiration Date ND Personal Banking Officer 10 mL intra-urethral 10 mL naproxen 500 mg tablet Performing Provider: Erickson Dunn MD Performing Location: [facility] Administered by: CHRISTELLE Rosas on 08/15/24 11:31 Dose Route Admin Location Dispensed Lot Number Expiration Date NDC Personal Banking Officer 500 mg PO 1 tab ciprofloxacin HCl 500 mg tablet Performing Provider: Erickson Dunn MD Performing Location: [facility] Administered by: CHRISTELLE Rosas on 08/15/24 11:31 Dose Route Admin Location Dispensed Lot Number Expiration Date ND Personal Banking Officer 500 mg PO 1 tab Results AMB Urinalysis, Automated UA Leukoctes 0 Dayday/uL Last Edit by CHRISTELLE Rosas on 08/15/24 11:33 UA Nitrite Negative Last Edit by CHRISTELLE Rosas on 08/15/24 11:33 UA Urobilinogen 0.2 mg/dL Last Edit by CHRISTELLE Rosas on 08/15/24 11:3 3 UA Protein 0 mg/dL Last Edit by NICOLÁS RosasA on 08/15/24 11:33 UA pH 5.5 Last Edit by Gill Hill, RMA on 08/15/24 11:33 UA Blood 0 Dago/uL Last Edit by Gill Hill, RMA on 08/15/24 11:33 UA Specific [place] [facility] 1.020 Last Edit by Gill Hill, RMA on 08/15/24 11: 33 UA Ketone Negative Last Edit by Gill Hill, RMA on 08/15/24 11:33 UA Bilirubin 0 mg/dL Last Edit by Gill Hill, RMA on 08/15/24 11:33 UA Glucose 0 mg/dL Last Edit by Gill Hill A on 08/15/24 11:33 Results Reviewed Results Reviewed: Laboratory Last Values Urine pH (Auto) 5.5 08/15/24 11:22 Specific [place] [facility] (Auto) 1.020 08/15/24 11:22 Urine Protein (Auto) 0 mg/dL 08/15/24 11:22 Glucose (UA)(Auto) 0 mg/dL 08/15/24 11:22 Urine Ketones (Auto) Negative 08/15/24 11:22 Urine Blood (Auto) 0 Dago/uL 08/15/24 11:22 Urine Nitrite (Auto) Negative 08/15/24 11:22 Urine Bilirubin (Auto) 0 mg/dL 08/15/24 11:22 Urine Urobilinogen (Auto) 0.2 mg/dL 08/15/24 11:22 Leukocyte Esterase (Auto) 0 Dayday/uL 08/15/24 11:22 Renal US 07/04/24--official auto body man pending, reviewed imaging, small simple cyst left kidney. Date of Service: 01/31/23 EXAMINATION: CT ABDOMEN AND PELVIS WITHOUT CONTRAST CLINICAL INFORMATION: Back pain. Abdominal pain. Hematuria. Evaluate for renal colic. COMPARISON: Abdominal ultrasound dated 04/08/2018. TECHNIQUE: Multidetector volumetric imaging was performed from the superior aspect of the liver through the pubic symphysis. Sagittal and coronal reformatted images were obtained on the technologist's workstation. This CT examination was performed using dose optimization techniques as appropriate, variously including the following: *Automated exposure control *Adjustment of mA and/or kV according to patient size (this includes techniques or standardized protocols for targeted exams where dose is matched to indication/reason for exam; i.e. extremities or head) *Use of iterative reconstruction technique DLP: 680 mGy-cm FINDINGS: LUNG BASES: The visualized lung bases are unremarkable. LIVER, GALLBLADDER, AND BILIARY TREE: The liver is normal in size, shape, and attenuation. No focal hepatic lesion or biliary ductal dilatation is present. Status post cholecystectomy. PANCREAS: Unremarkable. SPLEEN: Unremarkable. ADRENAL GLANDS: Unremarkable. KIDNEYS AND URETERS: The kidneys are normal in size, shape, and attenuation. No hydronephrosis, hydroureter, or calculi seen. Simple midpole left renal cyst, unchanged. Findings are not clinically significant and no dedicated follow-up imaging is recommended. No perinephric stranding. BLADDER: Unremarkable. GASTROINTESTINAL TRACT: Tiny, sliding hiatal hernia. Sigmoid diverticulosis without evidence of acute diverticulitis. No bowel wall thickening or inflammatory change. No small or large bowel obstruction. Unremarkable appendix. PERITONEAL CAVITY: No intra-abdominal free air or free fluid. No intra-abdominal mass or organized fluid collection/abscess formation. ABDOMINAL WALL: No significant hernia is appreciated. LYMPH NODES: No significant lymphadenopathy. VASCULAR: Unremarkable. PELVIC VISCERA: Status post hysterectomy. OSSEOUS STRUCTURES: Mild grade 1 anterolisthesis of L4 on L5. Mild multilevel degenerative disc disease. Multilevel bilateral facet arthropathy. IMPRESSION: 1. No hydronephrosis or nephrolithiasis. Unremarkable urinary bladder. 2. Diverticulosis without evidence of acute diverticulitis. No small or large bowel obstruction. Unremarkable appendix. 3. No intra-abdominal mass, lymphadenopathy, or ascites. Collected: 03/10/23 Received: 03/11/23 Diagnosis A. Bladder, trigone, biopsy: Mild chronic cystitis; muscularis propria present. B. Bladder, left lateral wall random, biopsy: Mild chronic cystitis; no muscularis propria identified. C. Bladder, right lateral wall random, biopsy: Mild chronic cystitis; muscularis propria present. D. Bladder, left lateral wall erythematous lesion, biopsy: Cystitis cystica with papillary urothelial hyperplasia; muscularis propria present. E. Bladder, random dome, biopsy: Mild chronic cystitis; muscularis propria present. F. Bladder, left lateral wall, transurethral resection: Inverted papilloma; focal cystitis cystica; negative for malignancy; muscularis propria present. Clinical History Pre-Op Dx: Disorder of the bladder Post-Op Dx: Bladder tumor Microscopic Description A-F. Microscopic sections reviewed. Material Received A: Bladder bx trigone B: Left lateral wall random bx C: Right lateral wall random bx D: Left lateral wall erythema lesion E: Dome random bx F: Bladder tumor left lateral wall Gross Description Received in 6 parts. Part A: Received in formalin labeled ?bladder bx trigone? is a 0.25 cm in greatest dimension glistening, semitranslucent, rushing-pink irregular fragment of mucosa which is submitted in toto in a single cassette labeled A. Part B: Received in formalin labeled ?left lateral wall random bx? are 2 glistening, semitranslucent, rushing-white and rushing-pink irregular fragments of tissue measuring 0.15 and 0.2 cm in greatest dimension which are submitted in toto in a single cassette labeled B. Part C: Received in formalin labeled ?right lateral wall random bx? is a 0.25 cm in greatest dimension glistening, semitranslucent, rushing-white irregular tissue fragment which is submitted in toto in a single cassette labeled C. Part D: Received in formalin labeled ?random bx left lateral wall erythema lesion is a 0.3 cm in greatest dimension glistening, semitranslucent, rushing-pink irregular tissue fragment which is submitted in toto in a single cassette labeled D. Part E: Received in formalin labeled ?dome random bx? is a 0.2 cm in greatest dimension glistening, semitranslucent, rubbery, rushing-white irregular tissue fragment which is submitted in toto in a single cassette labeled E. Part F: Received in formalin labeled ?bladder tumor left lateral wall? are multiple rubbery, cauterized, miller-rushing and rushing-white irregular fragments and chips of fibromuscular tissue ranging from 0.35-0.6 cm in greatest dimension and aggregating 1.5 x 1.2 x 0.4 cm. The specimen is submitted in toto in a single cassette labeled F. Assessment & Plan Assessment & Plan (1) Inverted papilloma of bladder: Code(s): D41.4 - Neoplasm of uncertain behavior of bladder Category: Medical (2) Urinary frequency: Code(s): R35.0 - Frequency of micturition Category: Medical Plan Plan: urine for cytology Follow-up in one year for office cystoscopy, renal US prior. Orders: Orders AMB Urinalysis Automated Today Z13.9 - Encounter for screening, unspecified AMB Cystoscopy Today N32.9 - Bladder disorder, unspecified Urine Cytology Today R31.0 - Gross hematuria Patient Instructions: The patient had an opportunity to ask questions regarding treatment plan. The patient expressed understanding and agreement with the above treatment plan. The patient is aware they should contact our office by phone for worsening of their current condition or the appearance of new symptoms. Compliance is encouraged with any medications and followup testing that is ordered. It is a privilege to be allowed the opportunity to participate in the urologic care of your patient. If you have any questions or concerns regarding treatment for the above conditions please do not hesitate to contact me. The office telephone contact is [phone]. This note is constructed in part using voice recognition software. While every effort has been made to ensure accuracy auto body man errors may have been included. Yours sincerely, Erickson Dunn MD Coding Level of Care Code Procedure Only Diagnoses Inverted papilloma of bladder D41.4 Urinary frequency R35.0 CPT Codes Cystoscopy - CPT: 23856-[id number] ([id number])
== END 2024-08-15 11:50 | disposition home or self-care (01) ==
PROVIDERS: PCP Physician Assistant; Visit Provider Urology
DX: D41.4 Neoplasm of uncertain behavior of bladder (principal); R35.0 Frequency of micturition; N32.9 Bladder disorder, unspecified; Z13.9 Encounter for screening, unspecified
CPT/HCPCS: 52000

== ENCOUNTER 2024-08-15 10:17 | Outpatient (REF) | payer MEDICARE, SELFPAY ==
[2024-08-16 08:33] LABS: Urine Cytology See Pathology rpt
== END 2024-08-15 10:18 | disposition home or self-care (01) ==
LOC: HO.LAB 10:17
PROVIDERS: PCP Physician Assistant; Visit Provider Urology
DX: R31.0 Gross hematuria (principal)
CPT/HCPCS: 52000; 81003; 88112

== ENCOUNTER 2025-01-09 08:34 | Outpatient (REF) | payer MEDICARE, SELFPAY ==
--- OUTSIDE RECORDS SUMMARY | 2025-01-09 09:06 | XMS_ITS | Patient Health Record ---
Author Organization [facility] Address [address] [place] [address] Care Team Providers Care Public Safety Officer Name Role Phone Nataliia Hinojosa MD Primary Care Provider Kamalaa Cindy Gama Unavailable [phone] Allergies Allergen (clinical drug ingredient) Drug/Non Drug Allergy documented on EMR Reaction Allergy Type Onset Date Status Percodan itching Drug Allergy Active Penicillin Unknown Drug Allergy Active codeine Codeine constipation Drug Allergy Acti ve Reason For Referral No Information Medications Medication SIG (Take, Route, Frequency, Duration) Notes [...] Once a day for 30 day(s) Active Social History Tobacco Use: Social History Observation Description Date Details (start date - stop date) Former Smoker NA - NA Tobacco Use/Smoking Question Answer Notes Are you [...] Are you an other tobacco user? No Plan Of Treatment Pending Test Test Name Order Date [id number] Debride <25 sq cm 12/10/2017 [id number] I&D ABSCESS- SIMPLE,SINGLE 018 Insurance Providers Payer Name Payer Address Payer Phone Subscriber Number Group Number Insured Name Patient Relationship to Insured Coverage Start Date Coverage End Date [employer] Medicare [id number] [address] [address] [place] [address] [id number] Clinton Hoyt Self - patient is the insured Medical (General) History Medical History History ICD Code Macular degeneration Anemia Arthritis asthma Back,Hip,and Knee pain Broken bones Cataracts covid-19 Gall bladder problems Heart disease Numbness Osteoporosis Psoriasis/eczema Reflux ( GERD) Sciatica chronic sinusitis thyroid Chicken pox Surgical History Surgery Date(Month/Year) hysterectomy 1996 lumpectomy-benign 1996 left knee arthroscopy 2002 cholecystectomy 2004 sinus surgery 2006 rotator cuff tear repair 2010 ankle surgery 1990, 2015 thyroidectomy, partial 2019 gall bladder 2000 Hospitalization History Reason Date(Month/Year) [facility] 11/25/17
--- OUTSIDE RECORDS SUMMARY | 2025-01-09 09:06 | XMS_ITS | Clinical Summary ---
Author Organization [employer] [facility] ity Address [address] [place] [address] Care Team Providers Care Core Baker Name Role Phone Unavailable Primary Care Provider Unavailabl e Social History Tobacco Use Types Packs/Day Years Used Date Smoking Tobacco: Never Assessed Comments Unknown Sex and Gender Information Value Date Recorded Sex Assigned at Not on file Legal Sex Female 7:27 AM EST Gender Identity Not on file Sexual Orientation Not on file Plan of Treatment Upcoming Encounters Date Type Department Care Team (Late st Contact Info) Description 01/12/2025 9:45 AM EDT [facility]ointment [facility] [address] [phone] Health Maintenance Due Date Last Done Comments DTaP,Tdap,and Td Vaccines (1 - Tdap) 1974 Pneumococcal Vaccine: 50+ Years (1 of 1 - PCV) 2005 Zoster Vaccines (1 of 2) 2005 Colorectal Cancer Screening: Colonoscopy 08/17/2022 Depression Screening 08/17/2022 Falls Risk Assessment 08/17/2022 Hepatitis C Screening 08/17/2022 Medicare Annual Wellness Visit 08/17/2022 Social Influencers of Health Screening 08/17/2022 COVID-19 Vaccine ( - season) 2024 Influenza Vaccine (Season Ended) 2025 Breast Cancer Screening 01/10/2026 01/11/20 24, 01/07/2023, 12/30/2021, Additional history exists RSV Immunization Adult Patients (1 - 1-dose 75+ series) 2030 Osteoporosis Screening (Bone Density Screening) 01/07/2033 01/07/2023, 01/07/2023, 12/10/2020, Additional history exists HIB Vaccines Aged Out No longer eligi ble based on patient's age to complete this topic HPV Vaccines Aged Out No longer eligi ble based on patient's age to complete this topic Hepatitis A Vaccines Aged Out No long er eligible based on patient's age to complete this topic Hepatitis B Vaccines Aged Out No long er eligible based on patient's age to complete this topic IPV Vaccines Aged Out No longer eligi ble based on patient's age to complete this topic MMR Vaccines Aged Out No longer eligi ble based on patient's age to complete this topic Meningococcal ACWY Vaccine Aged Out N o longer eligible based on patient's age to complete this topic Meningococcal B Vaccine Aged Out No l onger eligible based on patient's age to complete this topic RSV Immunization Patients Under 20 months Aged Out No longer eligible based on patient's age to complete this topic Varicella Vaccines Aged Out No longer eligible based on patient's age to complete this topic Procedures Procedure Name Priority Date/Time Associated Diagnosis Comments [facility] SCREENING DIGITAL Routine 01/11/2024 2:29 PM EDT Encounter for screening mammogram for malignant neoplasm of breast [facility] DEXA AXIAL SKELETON Routine 01/07/2023 11:40 AM EDT Age-related osteoporosis without current pathological fracture from Last 3 Months or Most Recently Relevant to Health Maintenance Results * [facility] SCREENING DIGITAL (01/11/2024 2:29 PM EDT) Anatomical Region Laterality Modality Mammography 01/11/2024 8:03 AM EDT Narrative 01/11/2024 2:29 PM EDT [facility] Diagnostic Imaging Department [address] [place] [address] Patient: ??JORGESTEFANIE John ?/Age/Sex: 1955 - 68 - F Unit#: ??[id number] ? Location/Status: ??SPDIMAM/REG CLI ? Mnemonic/Ordering Site: ??DIGSC/SPMAM Ordering Physician: ??LOUIS DAVISON PA-C [facility] Screening Digital - 01/11/24 - 817 Report Status:Signed EXAM: [facility] Screening Digital EXAM DATE AND TIME: 01/11/2024 8:18 AM HISTORY: ??Screening. Previous bilateral breast biopsies, pathology benign. Family history of breast carcinoma including sister at age 79 and maternal grandmother. COMPARISON: ??01/07/23, 12/30/21, 09/27/20, 09/10/19 TECHNIQUE: Bilateral digital breast tomosynthesis was performed in the CC and MLO projections. Computer aided detection with BPT 3D 3.1 was employed. TISSUE DENSITY: b. There are scattered areas of fibroglandular density. FINDINGS: No suspicious masses, grouped microcalcifications, or areas of architectural distortion are seen. Benign secretory calcifications are again noted. A cardiac loop recorder is seen in the posteromedial left breast, unchanged. The skin and vascularity are unremarkable. IMPRESSION: Stable mammographic appearance of the breasts. ??No evidence of malignancy is seen. A negative mammogram in the presence of a clinically suspicious palpable abnormality does not preclude the possibility of malignancy or alter the indications for biopsy. BI-RADS: ??Category 2: Benign RECOMMENDATION(S): 1: Routine screening mammogram BILATERAL in 1 year. Dictating Physician: ??MELINDA STYLES MD Electronically Signed by: ??MELINDA STYLES MD Dic Date/Time: ??01/11/24 1428 Sign date/Time: ??01/11/24 142 Procedure Note Melinda Styles MD - 05/02/2024 [facility] Diagnostic Imaging Department [address] [place] [id number] Patient: STEFANIE THOMAS /Age/Sex: 1955 - 68 - F Unit#: [id number] Location/Status: SPDIMAM/REG CLI Mnemonic/Ordering Site: [facility] Ordering Physician: LOUIS DAVISON PA-C [facility] Screening Digital - 01/11/248[address] Report Status:Signed EXAM: [facility] Screening Digital EXAM DATE AND TIME: 01/11/2024 8:18 AM HISTORY: Screening. Previous bilateral breast biopsies, pathologybenign. Family history of breast carcinoma including sister at age 79 andmaternal grandmother. COMPARISON: 01/07/23, 12/30/21, 09/27/20, 09/10/19 TECHNIQUE: Bilateral digital breast tomosynthesis was performed in the CCand MLO projections. Computer aided detection with [employer] 3D 3.1was employed. TISSUE DENSITY: b. There are scattered areas of fibroglandular density. FINDINGS: No suspicious masses, grouped microcalcifications, or areas ofarchitectural distortion are seen. Benign secretory calcifications are again noted. A cardiac loop recorder is seen in the posteromedial left breast,unchanged. The skin and vascularity are unremarkable. IMPRESSION: Stable mammographic appearance of the breasts. No evidence of malignancyis seen. A negative mammogram in the presence of a clinically suspicious palpable abnormality does not preclude the possibility of malignancy or alter the indications for biopsy. BI-RADS: Category 2: Benign RECOMMENDATION(S): 1: Routine screening mammogram BILATERAL in 1 year. Dictating Physician: MELINDA STYLES MD Electronically Signed by: MELINDA STYLES MD Dic Date/Time: 01/11/241427 Sign date/Time: 01/11/241428 us Louis SANTILLAN IMG BI PROCEDURES Final Res ult * [facility] DEXA AXIAL SKELETON (01/07/2023 11:40 AM EDT) Anatomical Region Laterality Modality Mammography 01/07/2023 10:0 5 AM EDT Narrative 01/07/2023 11:40 AM EDT [facility] Diagnostic Imaging Department [address] [place], [place] [id number] Patient: ??STEFANIE THOMAS ?/Age/Sex: 1955 - 67 - F Unit#: ??[id number] ? Location/Status: ??SPDIMAM/REG CLI ? Mnemonic/Ordering Site: ??MAMDEXAAX/SPMAM Ordering Physician: ??KYLAH JULIO DO [facility] Dexa Axial Skeleton - 01/07/23 1650 HISTORY: ??The patient is a 67-year-old postmenopausal female with clinical concern for metabolic bone disease. FINDINGS: ??Dual energy x-ray absorptiometry of the lumbar spine and femurs is performed. The mean bone mineral density at L1-L4 is 0.920 gm/cm2 which is 78% of that of young normals and 89% of that of age matched controls. This yields a T-score of -2.2 and a Z-score of -1.0 which is diagnostic of osteopenia. The mean bone mineral density of the femurs bilaterally is 0.834 gm/cm2 which is 83% of that of young normals and 95% of that of age matched controls. ??This yields a T-score of -1.4 and a Z-score of -0.4 which is diagnostic of osteopenia. ??The T-score of the right femoral neck is -1.9 and that of the left femoral neck is -1.9 which is diagnostic of osteopenia. IMPRESSION: 1. Osteopenia. ??There has been a decrease of 3.7% in bone mineral density in the lumbar spine since the prior examination of 12/10/2020. ??There has been an increase of 4.7% in bone mineral density in the right femur and an increase of 2.4% in bone mineral density in the left femur. 2. FRAX analysis yields a 10-year probability of major osteoporotic fracture of 16.7% and a 10-year probability of hip fracture of 3.1%. Code 73100 Dictating Physician: ??ENOC SANCHEZ MD Electronically Signed by: ??ENOC SANCHEZ MD Dic Date/Time: ??01/07/23 1137 Sign date/Time: ??01/07/23 1140 Procedure Note Enoc Sanchez MD - 10/16/2023 [facility] Diagnostic Imaging Department [address] [place], [place] [id number] Patient: STEFANIE THOMAS Dora Morton./Age/Sex: 1955 - 67 - F Unit#: [id number] Location/Status: [facility] CLI [facility] Ordering Physician: KYLAH JULIO DO [facility] Dexa Axial Skeleton - 01/07/23 - 1134 HISTORY: The patient is a 67-year-old postmenopausal female withclinical concern for metabolic bone disease. FINDINGS: Dual energy x-ray absorptiometry of the lumbar spine and femursis performed. The mean bone mineral density at L1-L4 is 0.920 gm/cm2 which is78% of that of young normals and 89% of that of age matched controls. Thisyields a T-score of -2.2 and a Z-score of -1.0 which is diagnostic of osteopenia. The mean bone mineral density of the femurs bilaterally is 0.834 gm/wm2ozadc is 83% of that of young normals and 95% of that of age matched controls.This yields a T-score of -1.4 and a Z-score of -0.4 which is diagnostic of osteopenia. The T-score of the right femoral neck is -1.9 and that of theleft femoral neck is -1.9 which is diagnostic of osteopenia. IMPRESSION: 1. Osteopenia. There has been a decrease of 3.7% in bone mineral densityin the lumbar spine since the prior examination of 12/10/2020. There has beenan increase of 4.7% in bone mineral density in the right femur and anincrease of 2.4% in bone mineral density in the left femur. 2. FRAX analysis yields a 10-year probability of major osteoporoticfracture of 16.7% and a 10-year probability of hip fracture of 3.1%. Code 45546 Dictating Physician: ENOC SANCHEZ MD Electronically Signed by: ENOC SANCHEZ MD Dic Date/Time: 01/07/23 1137 Sign date/Time: 01/07/23 1140 us Kylah Chiu DO IMG BI PROCEDURES Final Res ult from Last 3 Months or Most Recently Relevant to Health Maintenance Insurance [employer]
--- OUTSIDE RECORDS SUMMARY | 2025-01-09 09:06 | XMS_ITS | Data Portability ---
Author Organization [facility], [employer] Address [address] [place] [address] Care Team Providers Care Clearing Inspector Name Role Phone LESLY DAVISON Primary Care Provider Assessment Encounter Date Assessment Date Assessment LastModified by Organization Details LastModified Time 05/10/2024 05/10/2024 CHIEF COMPLAINT: Follow-up bilateral feet HISTORY OF PRESENT ILLNESS: Clinton is a 69-year-old woman who is 10 months status post right subtalar hardware removal. She is doing well following previous right talonavicular and subtalar arthrodeses. She is troubled by pain about her left dorsal midfoot, numbness about the dorsum of the foot and a left second varus crossover toe. I last saw her in August 2023. She has been wearing Hoka sneakers. She is here today to discuss treatment for her left foot. Past family, medical, social history and review of systems has been reviewed and is located in the patient? s chart. No interval change. PHYSICAL EXAM: General: healthy appearing, in no acute distress Psych: alert and oriented x3, normal mood Skin: intact without ulceration or lesion, normal turgor Lungs: respirations unlabored Cardiac: heart rate regular, normal peripheral pulses Musculoskeletal: Her right foot incisions are well-healed. There is minimal lateral hindfoot incisional sensitivity and tenderness. She is otherwise nontender and distally neurovascularly intact. Her ankle is stable. There is no gross-range of motion. Hardware is not prominent nor tender. She has a small psoriatic rash over her dorsal hindfoot/midfoot incision without infectious change. On the right side, she is tender about the second and third TMT joints (especially the third TMT joint dorsally) and her second MTP joint where there is a chronic varus cockup crossover toe deformity. She has decreased sensation in the deep peroneal nerve distribution. She is otherwise distally neurovascularly intact. X-RAYS: Five standing views of the bilateral feet and ankles were ordered, obtained and reviewed by me today at [facility], demonstrating healed right talonavicular and subtalar arthrodesis. She has end-stage left third TMT arthritis, moderate second TMT arthritis and varus second crossover toe deformity with long second metatarsal. IMPRESSION: 10 months postop, doing well; left midfoot arthritis and second varus crossover toe deformity PLAN: I discussed these findings with Clinton. She is doing very well from the standpoint of her right foot. I have recommended a trial of a double Budin splint to be worn around her left second and third toes to help with her second toe deformity along with a fluoroscopic guided left third TMT cortisone injection by [facility] radiology. I will plan to see her back in 3 months for reevaluation. If conservative measures fail, surgery would include left second and third TMT arthrodesis and second metatarsal shortening osteotomy and MTP angular correction. I discussed with her the nature and magnitude of such surgery and the timeline of recovery. All questions were answered. The patient is ambulatory, but has weakness and/or instability of their extremity which requires stabilization from this semi-rigid/rigid orthosis to improve their function. Verbal and written instructions for the use and application of this item were given. Patient was instructed that should the brace result in increased pain, decreased sensation, increased swelling or an overall worsening of their medical condition, to please contact our office immediately. [email or web address] Not available 05/10/2024 10:56:04 08/02/2024 08/02/2024 CHIEF COMPLAINT: Follow-up bilateral feet HISTORY OF PRESENT ILLNESS: Clinton is a 69-year-old woman who is 10 months status post right subtalar hardware removal. She is doing well following previous right talonavicular and subtalar arthrodeses. She is troubled by pain about her left dorsal midfoot, numbness about the dorsum of the foot and a left second varus crossover toe. I last saw her in August 2023. She has been wearing Hoka sneakers. She is here today to discuss treatment for her left foot. Past family, medical, social history and review of systems has been reviewed and is located in the patient? s chart. No interval change. PHYSICAL EXAM: General: healthy appearing, in no acute distress Psych: alert and oriented x3, normal mood Skin: intact without ulceration or lesion, normal turgor Lungs: respirations unlabored Cardiac: heart rate regular, normal peripheral pulses Musculoskeletal: Her right foot incisions are well-healed. There is minimal lateral hindfoot incisional sensitivity and tenderness. She is otherwise nontender and distally neurovascularly intact. Her ankle is stable. There is no gross-range of motion. Hardware is not prominent nor tender. She has a small psoriatic rash over her dorsal hindfoot/midfoot incision without infectious change. On the right side, she is tender about the second and third TMT joints (especially the third TMT joint dorsally) and her second MTP joint where there is a chronic varus cockup crossover toe deformity. She has decreased sensation in the deep peroneal nerve distribution. She is otherwise distally neurovascularly intact. X-RAYS: Five standing views of the bilateral feet and ankles were ordered, obtained and reviewed by me today at [facility], demonstrating healed right talonavicular and subtalar arthrodesis. She has end-stage left third TMT arthritis, moderate second TMT arthritis and varus second crossover toe deformity with long second metatarsal. IMPRESSION: 10 months postop, doing well; left midfoot arthritis and second varus crossover toe deformity PLAN: I discussed these findings with Clinton. She is doing very well from the standpoint of her right foot. I have recommended a trial of a double Budin splint to be worn around her left second and third toes to help with her second toe deformity along with a fluoroscopic guided left third TMT cortisone injection by [facility] radiology. I will plan to see her back in 3 months for reevaluation. If conservative measures fail, surgery would include left second and third TMT arthrodesis and second metatarsal shortening osteotomy and MTP angular correction. I discussed with her the nature and magnitude of such surgery and the timeline of recovery. All questions were answered. The patient is ambulatory, but has weakness and/or instability of their extremity which requires stabilization from this semi-rigid/rigid orthosis to improve their function. Verbal and written instructions for the use and application of this item were given. Patient was instructed that should the brace result in increased pain, decreased sensation, increased swelling or an overall worsening of their medical condition, to please contact our office immediately. [email or web address] Not available 08/02/2024 09:50:31 08/30/2024 08/30/2024 CHIEF COMPLAINT: Follow-up bilateral feet HISTORY OF PRESENT ILLNESS: Clinton is a 69-year-old woman who is over 1 year status post right subtalar hardware removal. She is doing well following previous right talonavicular and subtalar arthrodeses. She has some mild residual right lateral border foot pain but finds this tolerable. She is troubled by pain about her left dorsal midfoot, numbness about the dorsum of the foot and a left second varus crossover toe. I last saw her in August 2023. She has been wearing Hoka sneakers. She is here today to discuss treatment for her left foot. Her chief complaint today is left dorsal foot numbness radiating to her dorsal first webspace. She had a left third TMT cortisone injection by [facility] radiology that was not beneficial. She requested a refill of compound cream. She takes gabapentin at night, is somewhat helpful. She is not ready to move forward with left foot surgery. Past family, medical, social history and review of systems has been reviewed and is located in the patient? s chart. No interval change. PHYSICAL EXAM: General: healthy appearing, in no acute distress Psych: alert and oriented x3, normal mood Skin: intact without ulceration or lesion, normal turgor Lungs: respirations unlabored Cardiac: heart rate regular, normal peripheral pulses Musculoskeletal: Her right foot incisions are well-healed. There is minimal lateral hindfoot incisional sensitivity and tenderness. She is otherwise nontender and distally neurovascularly intact. Her ankle is stable. There is no gross-range of motion. Hardware is not prominent nor tender. She has a small psoriatic rash over her dorsal hindfoot/midfoot incision without infectious change. On the left side, she is mildly tender about the second and third TMT joints and her second MTP joint where there is a chronic varus cockup crossover toe deformity. She has decreased sensation in the deep peroneal nerve distribution and over the dorsum of her midfoot. She is otherwise distally neurovascularly intact. X-RAYS: Previous x-rays were reviewed, demonstrating healed right talonavicular and subtalar arthrodesis. She has end-stage left third TMT arthritis, moderate second TMT arthritis and varus second crossover toe deformity with long second metatarsal. IMPRESSION: Over 1 year postop, doing well; left midfoot arthritis and second varus crossover toe deformity, anterior tarsal tunnel syndrome PLAN: I discussed these findings with Clinton. She is doing very well from the standpoint of her right foot. I have refilled her P4 compound cream and have also recommended alternative sneaker lacing techniques to avoid pressure over her left dorsal midfoot. She is not ready to move forward surgery. I will plan to see her back in 6 months for reevaluation. If conservative measures fail, surgery would include left second and third TMT arthrodesis, anterior tarsal tunnel (deep peroneal nerve) release, second metatarsal shortening osteotomy and MTP angular correction. I discussed with her the nature and magnitude of such surgery and the timeline of recovery. All questions were answered. [email or web address] Not available 08/30/2024 10:41:01 Plan of Treatment Reminders Order Date Submit Date Provider Last Modified By Organization Details Last Modified Time Details Appointments RECHECK 15 2024 08:30A Dora Acosta MD Not available Not available Not available Lab None recorded. Referral None recorded. Procedures None recorded. Surgeries None recorded. Imaging XR, foot, 3 or more view - RM 107--new 3V FOOT WB, 2V ANKLE WB 2023 024 [facility], [address], [address], [place], [address], 06/01/2024 16:40:51 XR, ankle, 2 view 2023 024 [facility] [employer] [facility], [address], [address], [place], [address], 06/01/2024 16:40:51 XR, lumbar spine, 2 view - RM 301 LUMBAR SPINE 2 VIEW 2023 024 [facility] [employer] [facility] [facility] [facility], [address], [address], [place], [address], 04/14/2024 11:26:29 XR, hip, unilatera l, 2 or 3 view - RM 301 JUAN CARLOS HIPS 2023 024 [facility], [address], [facility] [address], [place], [address], 04/14/2024 11:26:29 Medication Orders compounde d medicatio n 2023 024 [facility], [address] [place], [address], 08/30/2024 12:51:26 gabapenti n 100 mg capsule [address] [id number], [address] [place] [address], [id number], 08/02/2024 12:17:10 Patient TargetsNo targets recorded. Patient InstructionsNo instructions recorded. Reason for Referral None Reported. Results Created Date Observation Date Name Description Value Unit Range Abnormal Flag Note LastModifiedBy Organization Detail LastModifiedTime 03/10/20 24 03/10/2024 XR, lumba r spine , 2 view [email or web address] ?Encry pted=s hAaTro YD8dLq bEUv6g %2BXZw aYqtaq 0bqfl% 2Fg9IQ a4ajBk vP9nXo QUaueC m3YtLR FvZlgJ JJ8mAn HZtai3 2y9040 AC0Kpa niGUqb eUC8mr 84%3D INTERFACE [facility] [address], [place], [address], 03/10/2024 13:27:20 03/10/20 24 03/10/2024 XR, lumba r spine , 2 view [email or web address] ?Encry pted=s hAaTro YD8dLq bEUv6g %2BXZw aYqtaq 0bqfl% 2Fg9IQ a4ajBk vP9nXo QUaueC m3YtLR FvZlgJ JJ8mAn HZtai3 0q0205 AC0Kpa niGUqb eUC8mr 84%3D INTERFACE [facility] [address], [place], [address], 03/10/2024 13:27:22 05/10/20 24 05/10/2024 XR, foot, 3 or more view [email or web address]:/ [email or web address] ?Encry pted=s hAaTro YD8dLq bEUv6g %2BXZw aYqtaq 0bqfl% 2Fg9IQ a4ajBk vP9nXo QUaueC m3YtLR FvZlJ J8Chelsea HZtai3 7b3652 AC0Krb nyEUKD eUC8mr 84%3D INTERFACE [facility] [address], [place], [address], 05/10/2024 10:30:51 05/10/20 24 05/10/2024 XR, foot, 3 or more view [email or web address]:/ [email or web address] ?Encry pted=s hAaTro YD8dLq bEUv6g %2BXZw aYqtaq 0bqfl% 2Fg9IQ a4ajBk vP9nXo QUaueC m3YtLR FvZl JJ8Chelsea HZtai3 6b2211 AC0Krb nyEUKD eUC8mr 84%3D INTERFACE [facility] [address], [place], [address], 05/10/2024 10:30:53 05/10/20 24 05/10/2024 XR, ankle , 2 view [email or web address] ?Encry pted=s hAaTro YD8dLq bEUv6g %2BXZw aYqtaq 0bqfl% 2Fg9IQ a4ajBk vP9nXo QUaueC m3YtLR FvZlgJ JJ8mAn HZtai3 7r4446 AC0Krb nyEUKH eUC8mr 84%3D INTERFACE [facility] [address], [place], [address], 05/10/2024 10:32:53 05/10/20 24 05/10/2024 XR, ankle , 2 view [email or web address]:/ [email or web address] ?Encry pted=s hAaTro YD8dLq bEUv6g %2BXZw aYqtaq 0bqfl% 2Fg9IQ a4ajBk vP9nXo QUaueC m3YtLR FvZlgJ JJ8mAn HZtai3 1m3110 AC0Krb nyEUKH eUC8mr 84%3D INTERFACE [facility] [address], [place], [address], 05/10/2024 10:32:55 05/13/20 24 06/09/2023 imagi ng/di agnos tic resul t No observ ation record ed. [email or web address] Not Available 04/16 19:46:46 05/13/20 24 01/22/2022 imagi ng/di agnos tic resul t No observ ation record ed. [email or web address] Not Available 04/16 19:46:59 05/19/2005/19/2024 fluor oscop ic guide d injec tion (PROC ) No observ ation record ed. STEFAN Busch [address] [place], [address], 05/19/2024 13:49:45 Result Notes None recorded. Problems Name Problem SNOMED Code Status Onset Date Resolution Date Notes Provider Name and Address Organization Details Recorded Time No complaints 942231138 Active Status : 'I'; Not Available [facility] 09:17:31 Problem Notes None recorded. Procedures Surgical History None recorded. Imaging Results Imaging Date Name Status LastModified by Organization Details LastModified Time 03/10/2024 XR, lumbar spine, 2 view completed INTER[facility] [address], [place], [address], 03/10/2024 13:27:20 03/10/2024 XR, lumbar spine, 2 view completed [facility] [address], [place], [address], 03/10/2024 13:27:22 05/10/2024 XR, foot, 3 or more view completed [facility] [address], [place], [address], 05/10/2024 10:30:51 05/10/2024 XR, foot, 3 or more view completed INTER[facility] [address], [place], [address], 05/10/2024 10:30:53 05/10/2024 XR, ankle, 2 view completed INTER[facility] [address], [place], [address], 05/10/2024 10:32:53 05/10/2024 XR, ankle, 2 view completed INTER[facility] [address], [place], [address], 05/10/2024 10:32:55 06/09/2023 imaging/diagnost ic result completed Information not available 05/13/2024 19:46:46 01/22/2022 imaging/diagnost ic result completed Information not available 05/13/2024 19:46:59 05/19/2024 fluoroscopic guided injection (PROC) completed STEFAN Hung [address] [place] [address], [place], [address], 05/19/2024 13:49:45 Procedure Notes None recorded. Medical Equipment None Reported. Allergies Allergen ID Allergen Name Allergen Category Reaction Reaction Severity Criticality Documentation Date Start Date Code Code System Note Provider Name and Address Organization Details Recorded Time 60150 acetamino phen / oxycodone medicatio n Not available Not available Not available 11/16/20232009 34938 3 RxNorm Aller gyRea ction : 'Skin React ion'; Not Available [facility] 13:39:44 62927 codeine medicatio n Not available Not available Not available 11/16/20232014 2670 RxNorm Aller gyRea ction : 'Skin React ion'; Not Available [facility] 4 13:39:44 02354 wheat preparati on food,medi cation Not available Not available Not available 11/16/20232021 31049 52 RxNorm Not Available [facility] 4 13:39:44 87270 egg extract food,medi cation Not available Not available Not available 11/16/20232014 90984 15 RxNorm Not Available [facility] 4 13:39:44 30885 Milk (substanc e) food,medi cation Not available Not available Not available 11/16/20232014 64656 002 SNOMED Not Available [facility] 13:39:44 Medications Name Sig Start Date Stop Date Status Note LastModified by Organization Details LastModified Time compounded medication Apply 1-3 grams(pum ps) to the affected area 3-4 times daily 2023 active Not Available Not Available Not Avai lable BD Luer-Shashank Syringe 3 mL 23 x 1 05/05 completed Not Available Not Available Not Available celecoxib 200 mg capsule TAKE 1 CAPSULE BY MOUTH DAILY FOR 10 DAYS active Not Available Not Available No t Available azithromyci n 250 mg tablet 08/02 completed Not Available Not Available Not Available benzonatate 200 mg capsule TAKE 1 CAPSULE BY MOUTH THREE TIMES DAILY FOR 5 DAYS 05/05 completed Not Available Not Available Not Available phenazopyri dine 200 mg tablet TAKE 1 TABLET BY MOUTH THREE TIMES A DAY 05/05 completed Not Available Not Available Not Available prednisone 20 mg tablet TAKE TWO TABLETS BY MOUTH ONE TIME DAILY FOR 5 DAYS 05/05 completed Not Available Not Available Not Available ciprofloxac in 500 mg tablet TAKE 1 TABLET BY MOUTH TWICE DAILY FOR 7 DAYS 05/05 completed Not Available Not Available Not Available sulfamethox azole 800 mg-trimetho prim 160 mg tablet TAKE 1 TABLET BY MOUTH TWICE DAILY 05/05 completed Not Available Not Available Not Available hydromorpho ne 2 mg tablet TAKE 1 TABLET BY MOUTH EVERY 4 TO 6 HOURS NEEDED FOR PAIN DO NOT DRIVE WHILE TAKING THIS MEDICATIO N . TO BEGIN AFTER SURGERY 05/05 completed Not Available Not Available Not Available triamcinolo ne acetonide 0.025 % topical cream 05/05 completed Not Available Not Available Not Available aspirin 325 mg tablet,leticia yed release TAKE 1 TABLET BY MOUTH DAILY. START THE DAY AFTER SURGERY 05/05 completed Not Available Not Available Not Available cyanocobala min (vit B-12) 1,000 mcg/mL injection solution 08/02 completed Not Available Not Available Not Available lansoprazol e 30 mg capsule,del ayed release active Not Available Not Available Not Available flecainide 50 mg tablet 05/05 completed Not Available Not Available Not Available betamethaso ne dipropionat e 0.05 % topical cream APPLY SPARINGLY TO PSORIASIS ON FEET TWICE DAILY UNTIL BETTER 05/05 completed Not Available Not Available Not Available montelukast 10 mg tablet active Not Available Not Available Not Available gabapentin 100 mg capsule TAKE 2 CAPSULES BY MOUTH EVERY NIGHT AT BEDTIME active Not Available Not Available No t Available metoprolol succinate ER 25 mg tablet,exte nded release 24 hr TAKE 1 TABLET BY MOUTH DAILY 05/05 completed Not Available Not Available Not Available azelastine 137 mcg (0.1 %) nasal spray USE 1 SPRAY INTRANASA LLY EVERY DAY active Not Available Not Available No t Available BD Luer-Shashank Syringe 3 mL 22 gauge x 1 08/02 completed Not Available Not Available Not Available ketoconazol e 2 % topical cream 05/05 completed Not Available Not Available Not Available ondansetron 4 mg disintegrat ing tablet DISSOLVE 1 TABLET ON THE TONGUE EVERY 8 HOURS FOR 4 DAYS NEEDED FOR NAUSEA OR VOMITING 05/05 completed Not Available Not Available Not Available solifenacin 10 mg tablet TAKE 1 TABLET BY MOUTH DAILY 05/05 completed Not Available Not Available Not Available Aspirin Low-Strengt h active Not Available Not Available Not Available diclofenac 1 % topical gel APPLY 2 GRAM(S) TOPICALLY TO AFFECTED AREA(S) FOUR TIMES A DAY NEEDED active Not Available Not Available No t Available Prolia 60 mg/mL subcutaneou s syringe 05/05 completed Not Available Not Available Not Available Eliquis 5 mg tablet TAKE 1 TABLET BY MOUTH TWICE DAILY 05/05 completed Not Available Not Available Not Available baclofen 5 mg tablet TAKE 1 TABLET BY MOUTH AT BEDTIME FOR 7 DAYS 05/05 completed Not Available Not Available Not Available Vitals Date Recorded Body height Body mass index (BMI) Body weight Provider Name and Address Organization Details Last Updated DateTime 03/10/2024 156.21 cm 32.2 kg/m2 29831.48 g Yuki Ruelasquez [facility] 03/10/2024 13:22:48 Date Recorded Body height Body mass index (BMI) Body weight Provider Name and Address Organization Details Last Updated DateTime 05/10/2024 156.21 cm 32.2 kg/m2 32026.48 g REMINGTON Russo [facility] 05/10/2024 10:28:49 Date Recorded Body height Body mass index (BMI) Body weight Provider Name and Address Organization Details Last Updated DateTime 08/02/2024 156.21 cm 32.2 kg/m2 71114.48 g Emilia De La O [facility] 08/02/2024 09:50:24 Date Recorded Body height Body mass index (BMI) Body weight Provider Name and Address Organization Details Last Updated DateTime 08/30/2024 156.21 cm 32.2 kg/m2 64357.48 g REMINGTON Russo [facility] 08/30/2024 10:22:15 Social History None recorded. Functional Status None recorded. Mental Status None recorded. Family History Nothing Reported. Medical History No medical history recorded. Gynecological HistoryNo gynecological history recorded. Obstetrics History GPAL:G 0 P 0 0 0 0 Past Encounters Encounter ID Performer Location Encounter Start Date Encounter Closed Date Diagnosis/Indication Diagnosis SNOMED-CT Code Diagnosis ICD10 Code Diagnosis Note [id number] REJI Abdalla [address] [place] [address] 03/10/2024 12:36:59 04/14/2024 11:26:28 Low back pain 071735986 M54.50 [id number] MD Ladan Valdes [address] [place] [address] 05/10/2024 10:06:16 06/01/2024 16:40:51 Foot pain 19087686 M79.672 Overriding toes 70490237 3 M20.5X9 Arthritis of left foot 5211621466 813255 M13.632 [id number] Marry Pop PA-C [facility] [address] [place] [address] 08/02/2024 09:06:40 08/18/2024 10:01:29 Arthritis of left foot 2235198157 090500 M13.872 Cervical radiculopathy 15331423 M54.12 Osteoarthr itis of left foot 2435202731 589785 M19.588 [id number] Luca Acosta MD [facility] [address] [place] [address] 08/30/2024 09:53:00 09/22/2024 09:21:05 Arthritis of left foot 5035339171 333509 M19.072 Health Concerns Section Related Observation LastModified by Organization Detai ls LastModified Time None Recorded Concern Status LastModified by Organization Details LastModified Time None Recorded Advance Directives Directive None Recorded Payers Encounter Date Sequence Insurance Name Policy Number Policy Conde Covered Member ID Conde Member ID Guarantor Name 03/10/[address] [facility] (MEDICARE REPLACEMENT/A DVANTAGE - PPO) [id number] Clinton Thomas [id number] Clinton Thomas 05/10/[address] [facility] (MEDICARE REPLACEMENT/A DVANTAGE - PPO) [id number] Clinton Thomas [id number] Clinton Thomas 08/02/[address] [facility] (MEDICARE REPLACEMENT/A DVANTAGE - PPO) [id number] Clinton Thomas [id number] Clinton Thomas 08/30/[address] [facility] (MEDICARE REPLACEMENT/A DVANTAGE - PPO) [id number] Clinton Thomas [id number] Clinton Thomas Notes Date Note Type Note Provider Name and Address Organization Details Recorded Time 03/10/2024 text/html I am seeing the patient today under the supervision of Dr. Roper who was available but who did not see the patient. HPI: Patient presents with a chronic history of low back pain. Slow and gradual in onset without clear etiology. No radicular component. Mechanical in nature. Worse with prologued sitting and standing. Rates pain moderate. Denies bowel or bladder dysfunction. TREATMENTS: Minimal Past family, medical, social history and review of systems has been reviewed, updated and signed by me and is located in the patient? ? ?s chart. PHYSICAL EXAM: The patient is well appearing, alert and oriented x3 and in no acute distress. Gait is normal. Inspection of the spine reveals no step off, deformity or overlying skin changes. Range of motion of the lumbar spine is 70% of normal. Hip and knee range of motion full without discomfort. The spine is nontender over the paravertebral musculature. Nontender over the greater trochanters. Straight leg raise is negative. Strength and sensation intact. Re? e xes normal. No ankle clonus. X-RAY REPORT: X-rays ordered, obtained and reviewed at [facility]. 2 views of the lumbar spine reveal mild spondylolithesis L4-5 otherwise no fractures, subluxations or lesions. Degenerative disc disease noted. MRI REVIEWED: MRI of the lumbar spine reviewed in the office with the patient reveals [ ] ASSESSMENT & PLAN: Low back pain/Lumbar DDD. Discussed the nature of the problem with the patient. Recommend PT lumbar stabilization program and a trial of Gabapentin at night. Discussed the option of a home exercise program if prefers this to outpatient PT. Follow up in 6-8 weeks will be arranged. [facility] speech recognition cut out machine operator software was used to create portions of this document. An attempt at proofreading has been made to minimize errors. Please call for corrections. Kathleen Landaverde PA-C [address], [place], [address], [facility] 03/10/2024 13:52:51 08/02/2024 text/html I am seeing this patient under the supervision of Dr. Acosta who was available but who did not see the patient.HISTORY OF PRESENT ILLNESS: Clinton is a 69-year-old woman who is over a year status post right subtalar hardware removal by Dr. Acosta. She is doing well following previous right talonavicular and subtalar arthrodeses by Dr. Acosta. She is troubled by pain about her left dorsal midfoot, numbness about the dorsum of the foot and a left second varus crossover toe. Reports the nerve symptoms wake her up at night and she is not able to sleep unless she takes gabapentin. She last saw Dr. Acosta in April 2024 at which point he recommended trial of double Budin splint and U/S guided left 3rd TMT joint injection. Patient states unfortunately she did not have good symptom relief from these and is interested in surgical intervention at this point. She has been wearing [employer]oka sneakers. She is here today to discuss treatment for her left foot.Past family, medical, social history and review of systems has been reviewed and is located in the patient? s chart. No interval change.PHYSICAL EXAM:General: healthy appearing, in no acute distressPsych: alert and oriented x3, normal moodSkin: intact without ulceration or lesion, normal turgorLungs: respirations unlaboredCardiac: heart rate regular, normal peripheral pulsesMusculoskeletal: Left foot exam -mild edema about the dorsal midfoot, no erythema or warmth noted. She is tender about the second and third TMT joints (especially the third TMT joint dorsally) and her second MTP joint where there is a chronic varus cockup crossover toe deformity. She has decreased sensation in the deep peroneal nerve distribution. She is otherwise distally neurovascularly intact. X-RAYS: None indicated or performed today. Previous films: Five standing views of the bilateral feet and ankles demonstrate healed right talonavicular and subtalar arthrodesis. 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 We discussed potential treatment options at this time. Patient would like to follow-up with Dr. Acosta to discuss surgical intervention to include left second and third TMT arthrodesis and second metatarsal shortening osteotomy and MTP angular correction per Dr. Acosta's last note. I discussed with her the nature and magnitude of such surgery and the timeline of recovery. Follow-up was arranged. Gabapentin refill was provided today per her request as well. Patient understands and agrees with this plan. All questions were answered.Speech recognition cut out machine operator software was used to create portions of this document. An attempt at proofreading has been made to minimize errors. Please call for corrections. Marry Pop PA-C [address] [place] [address] [address], [place], [address], [facility] 08/02/2024 09:58:16 OBGyn Episode No OBEpisode recorded.
[2025-01-09 10:16] LABS: Calcium 9.4 mg/dL (8.4-10.2)
[2025-01-09 10:26] LABS: Albumin Level 4.1 g/dL (3.5-5.0); Anion Gap 14 (12-20); Blood Urea Nitrogen 20 mg/dL (9-16); Calcium 9.4 mg/dL (8.4-10.2); Carbon Dioxide 27 mmol/L (22-29); Chloride 104 mmol/L (96-108); Estimated Glomerular Filt Rate > 60; Glucose Random 96 mg/dL (60-115); Phosphorus 3.5 mg/dL (2.7-4.5); Potassium 3.9 mmol/L (3.3-5.1); Sodium 141 mmol/L (135-145)
[2025-01-09 10:41] LABS: Parathyroid Hormone Intact 72.9 pg/mL (8.7-77.1)
[2025-01-09 10:47] LABS: Free T4 (Free Thyroxine) 0.87 ng/dL (0.71-1.85); Thyroid Stimulating Hormone 2.15 uIU/mL (0.32-4.0); Vitamin D 25-OH Total 62.8 ng/mL (>30)
[2025-01-10 15:03] LABS: Calcium, Ionized 5.3 mg/dL (4.7-5.5)
[2025-01-12 20:54] LABS: Alkaline Phosphatase Bone 15.1 mcg/L (5.6-29.0)
== END 2025-01-09 08:35 | disposition home or self-care (01) ==
LOC: HO.HMGCLDS 08:34
PROVIDERS: PCP Physician Assistant; Visit Provider Student in an Organized Health Care Education/Training Program
DX: M81.0 Age-related osteoporosis without current pathological fracture (principal); Z13.29 Encounter for screening for other suspected endocrine disorder
CPT/HCPCS: 36415; 80048; 82040; 82306; 82310; 82330; 83970; 84075; 84100; 84439; 84443

== ENCOUNTER 2025-01-10 07:40 | Outpatient (REF) | payer MEDICARE, SELFPAY ==
--- OUTSIDE RECORDS SUMMARY | 2025-01-10 09:59 | XMS_ITS | Clinical Summary ---
Author Organization [employer] [facility] ity Address [address] [place] [address] Care Team Providers Care Bookmaker Map Name Role Phone Unavailable Primary Care Provider [...] AM EDT [facility] [address] [address] Health Maintenance Due Date Last [...] Procedure Name Priority Date/Time Associated Diagnosis Comments [facility] SCREENING DIGITAL Routine 01/11/2024 2:29 PM EDT Encounter for screening mammogram for malignant neoplasm of breast [facility] DEXA AXIAL SKELETON Routine 01/07/2023 11:40 AM EDT Age-related osteoporosis without current pathological fracture from Last 3 Months or Most Recently Relevant to Health Maintenance Results * [facility] SCREENING DIGITAL (01/11/2024 2:29 PM EDT) Anatomical Region Laterality Modality Mammography 01/11/2024 8:03 AM EDT Narrative 01/11/2024 2:29 PM EDT [facility] Diagnostic Imaging Department [address] [place] [address] Patient: ??JORGESTEFNAIE John ?/Age/Sex: 1955 - 68 - F Unit#: ??[id number] ? Location/Status: ??SPDIMAM/REG CLI ? Mnemonic/Ordering Site: [...] and MLO projections. Computer aided detection with CL3VER 3D 3.1 was employed. TISSUE DENSITY: b. [...] Note Melinda Styles MD - 05/02/2024 [facility] Diagnostic Imaging Department [address] [place] [address] Patient: STEFANIE THOMAS /Age/Sex: 1955 - 68 - F Unit#: [id number] Location/Status: SPDIMAM/REG CLI Mnemonic/Ordering Site: [facility] Ordering Physician: LOUIS DAVISON PA-C [facility] Screening Digital - 01/11/24817 Report Status:Signed EXAM: [facility] Screening Digital EXAM DATE AND TIME: 01/11/2024 8:18 AM HISTORY: Screening. Previous bilateral breast biopsies, pathologybenign. Family history of breast carcinoma including sister at age 79 andmaternal grandmother. COMPARISON: 01/07/23, 12/30/21, 09/27/20, 09/10/19 TECHNIQUE: Bilateral digital breast tomosynthesis was performed in the CCand MLO projections. Computer aided detection with PiictuD Cuídate 3D 3.1was employed. TISSUE DENSITY: b. There [...] EDT Narrative 01/07/2023 11:40 AM EDT [facility] Diagnostic Imaging Department [address] [place], [place] [id number] Patient: ??STEFANIE THOMAS ?/Age/Sex: 1955 - 67 - F Unit#: ??[id number] ? Location/Status: ??SPDIMAM/REG CLI ? Mnemonic/Ordering Site: ??MAMDEXAAX/SPMAM Ordering Physician: ??KYLAH JULIO DO [facility] Dexa Axial Skeleton - 01/07/23 6679 HISTORY: ??The patient is a 67-year-old postmenopausal [...] probability of hip fracture of 3.1%. Code 93743 Dictating Physician: ??ENOC SANCHEZ MD Electronically Signed by: ??ENOC SANCHEZ MD Dic Date/Time: ??01/07/23 1137 Sign date/Time: ??01/07/23 1140 Procedure Note Enoc Sanchez MD - 10/16/2023 [facility] Diagnostic Imaging Department [address] [place], [place] [id number] Patient: STEFANIE THOMAS Dora Morton./Age/Sex: 1955 - 67 - F Unit#: [id number] Location/Status: [facility] CLI Mnemonic[facility] Ordering Physician: KYLAH JULIO DO Yoel [...] density of the femurs bilaterally is 0.834 gm/yw7uorwp is 83% of that of young normals [...] probability of hip fracture of 3.1%. Code 56397 Dictating Physician: ENOC SANCHEZ MD Electronically Signed by: ENOC SANCHEZ MD Dic Date/Time: 01/07/23 1137 Sign date/Time: 01/07/23 1140 us Kylah Chiu DO IMG BI PROCEDURES Final Res ult from Last 3 Months or Most Recently Relevant to Health Maintenance Insurance [employer]ARE
--- OUTSIDE RECORDS SUMMARY | 2025-01-10 10:00 | XMS_ITS | Patient Health Record ---
Author Organization [facility] Address [address] [place] [address] Care Team Providers Care Quarantine Inspector Name Role Phone Nataliia Hinojosa MD Primary Care Provider Kamalaa Cindy Gama Unavailable [phone] Allergies Allergen (clinical drug ingredient) Drug/Non Drug [...] Treatment Pending Test Test Name Order Date 54674- Debride <25 sq cm 12/10/2017 00444 I&D ABSCESS- SIMPLE,SINGLE 018 Insurance Providers Payer Name Payer Address Payer Phone Subscriber Number Group Number Insured Name Patient Relationship to Insured Coverage Start Date Coverage End Date [employer] Medicare [id number] [address] [address] [place] [address] [id number] Clinton Hoyt Self - patient is the [...]
--- OUTSIDE RECORDS SUMMARY | 2025-01-10 10:00 | XMS_ITS | Data Portability ---
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 Plan of Treatment Reminders Order Date Submit Date Provider Last Modified By Organization Details Last Modified Time Details Appointments None recorded. Lab None recorded. Referral ophthalmolo gist referral 2022 023 [id number], [address] [place], [address], 3 11:31:29 Procedures None recorded. Surgeries None recorded. Imaging unlisted imaging order - US soft tissue 2023 024 [email or web address] [facility], [facility] All Locations, [place], [address], 4 06:52:33 CT, coronary calcium score 2022 023 STEFAN [facility], [facility], All Locations, [place], [address], 3 09:03:16 Medication Orders amoxicillin 875 mg-potassiu m clavulanate 125 mg tablet 2024 025 STEFAN [id number], [address] [place], [address], 5 10:24:37 Medrol (Samuel) 4 mg tablets in a dose pack 2024 025 STEFAN [id number], [address] [place], [address], 5 09:50:05 cefdinir 300 mg capsule 2024 025 STEFAN [id number], [address] [place], [address], 5 09:50:01 Prolia 60 mg/mL subcutaneou s syringe 2022 023 [email or web address] [facility], [address] [place] [address], [address], 13:29:24 Patient TargetsNo targets recorded. Patient Instructions Encounter Date Encounter Id Patient Instructions Last Modified By Organization Details Last Modified Time 10/01/2022 [id number] gastroesophageal reflux disease (GERD): care instructions Not available 10/01/2022 10:49:30 high cholesterol : care instructions Not available 10/01/2022 10:56:23 11/13/2024 [id number] Acute Sinusitis: Care Instructions [email or web address] Not available 11/13/2024 10:24:35 start on the abo ve medication as directed , if symptoms persist please either follow up with PCP or here back at the walking for re evaluation of symptoms , if symptoms worsen please go to the ER for further evaluation and treatment. Patient understands instructions and will seek medical attention if symptoms worsen as directed. 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 Age related macular degeneration Referring Physician: Gladys Kaiser, Family Medicine, Encounter Date: 10/01/2022 Results Created Date Observation Date Name Description Value Unit Range Abnormal Flag Note LastModifiedBy Organization Detail LastModifiedTime 12/03/19 24 12/03/2023 CBC W/ AUTOD IFF, COMPL ETE BLOOD COUNT WBC 10.0 K/uL 3.6 - 10.0 Not Available [facility], [place], [address], 12/03/2023 15:28:03 12/03/19 24 12/03/2023 CBC W/ AUTOD IFF, COMPL ETE BLOOD COUNT RBC 4.3 M/uL 3.9 - 5.0 Not Available [facility], [place], [address], 12/03/2023 15:28:03 12/03/19 24 12/03/2023 CBC W/ AUTOD IFF, COMPL ETE BLOOD COUNT hemoglobin 12.0 g/dL 12.0 - 15.0 Not Available [facility] [address] [place], [place] [address], [place], [address], 12/03/2023 15:28:03 12/03/19 24 12/03/2023 CBC W/ AUTOD IFF, COMPL ETE BLOOD COUNT hematocrit 36.7 % 35.0 - 45.0 Not Available [facility], [place], [address], 12/03/2023 15:28:03 12/03/19 24 12/03/2023 CBC W/ AUTOD IFF, COMPL ETE BLOOD COUNT MCV 85.0 fL 80.0 - 99.0 Not Available [facility] [address] [place] [address] [address], [place], [address], 12/03/2023 15:28:03 12/03/19 24 12/03/2023 CBC W/ AUTOD IFF, COMPL ETE BLOOD COUNT MCH 27.8 pg 27.0 - 33.0 Not Available [facility], [place], [address], 12/03/2023 15:28:03 12/03/19 24 12/03/2023 CBC W/ AUTOD IFF, COMPL ETE BLOOD COUNT MCHC 32.7 g/dL 32.0 - 37.5 Not Available [facility] [address], [place], [address], 12/03/2023 15:28:03 12/03/19 24 12/03/2023 CBC W/ AUTOD IFF, COMPL ETE BLOOD COUNT RDW 15.3 % 11.0 - 15.0 high Not Available [facility] [address], [place], [address], 12/03/2023 15:28:03 12/03/19 24 12/03/2023 CBC W/ AUTOD IFF, COMPL ETE BLOOD COUNT nucleated RBC 0 % 0 - 2 Not Available [facility] [address], [place], [address], 12/03/2023 15:28:03 12/03/19 24 12/03/2023 CBC W/ AUTOD IFF, COMPL ETE BLOOD COUNT platelet 335 K/uL 140 - 440 Not Available [facility], [place], [address], 12/03/2023 15:28:03 12/03/19 24 12/03/2023 CBC W/ AUTOD IFF, COMPL ETE BLOOD COUNT MPV 7.7 fL 7.4 - 10.4 Not Available [facility] [address], [place], [address], 12/03/2023 15:28:03 12/03/19 24 12/03/2023 CBC W/ AUTOD IFF, COMPL ETE BLOOD COUNT neutrophil, percentage 64.1 % Not Available [facility] [address], [place], [address], 12/03/2023 15:28:03 12/03/19 24 12/03/2023 CBC W/ AUTOD IFF, COMPL ETE BLOOD COUNT lymphocyte, percentage 26.4 % Not Available [facility] [address] [place], [place] [address], [place], [address], 12/03/2023 15:28:03 12/03/19 24 12/03/2023 CBC W/ AUTOD IFF, COMPL ETE BLOOD COUNT monocyte, percentage 4.8 % Not Available [facility] [address] [place], [place] [address], [place], [address], 12/03/2023 15:28:03 12/03/19 24 12/03/2023 CBC W/ AUTOD IFF, COMPL ETE BLOOD COUNT eosinophil, percentage 3.8 % Not Available [facility] [address] [place] [address] [address], [place], [address], 12/03/2023 15:28:03 12/03/19 24 12/03/2023 CBC W/ AUTOD IFF, COMPL ETE BLOOD COUNT basophil, percentage 0.9 % Not Available [facility] [address] [place], [place] [address], [place], [address], 12/03/2023 15:28:03 12/03/19 24 12/03/2023 CBC W/ AUTOD IFF, COMPL ETE BLOOD COUNT neutrophil, absolute 6.4 K/uL 1.5 - 7.5 Not Available [facility] [address] [place], [place] [address], [place], [address], 12/03/2023 15:28:03 12/03/19 24 12/03/2023 CBC W/ AUTOD IFF, COMPL ETE BLOOD COUNT lymphocyte, absolute 2.6 K/uL 0.8 - 4.0 Not Available [facility] [address] [place], [place] [address], [place], [address], 12/03/2023 15:28:03 12/03/19 24 12/03/2023 CBC W/ AUTOD IFF, COMPL ETE BLOOD COUNT monocyte, absolute 0.5 K/uL 0.1 - 1.0 Not Available [facility] [address] [facility] [address], [place], [address], 12/03/2023 15:28:03 12/03/19 24 12/03/2023 CBC W/ AUTOD IFF, COMPL ETE BLOOD COUNT eosinophil, absolute 0.4 K/uL 0.1 - 1.0 Not Available [facility] [address] [facility] [address], [place], [address], 12/03/2023 15:28:03 12/03/19 24 12/03/2023 CBC W/ AUTOD IFF, COMPL ETE BLOOD COUNT basophil, absolute 0.1 K/uL 0.0 - 0.2 Not Available [facility] [address] [facility] [place] [address] [place], [address], 12/03/2023 15:28:03 12/03/19 24 12/03/2023 TSH, THYRO ID STIMU LATIN G HORMO NE TSH 2.1400 uIU/m L 0.2700 - 4.2000 Not Available [facility] [address] [facility] [address], [place], [address], 12/03/2023 15:54:33 12/03/19 24 12/03/2023 VITAM IN B12 & FOLAT E vitamin B-12 820 pg/mL 232 - 1245 Not Available [facility] [address] [facility] [address], [place], [address], 12/03/2023 17:20:01 12/03/19 24 12/03/2023 VITAM IN B12 & FOLAT E folate 9.59 NG/mL >3.10 A serum Folat e ruben ntrat ion of < 3.1 ng/ml is consi dered to repre sent clini matt defic iency . Not Available [facility] [address], [place], [address], 12/03/2023 17:20:01 12/03/19 24 12/03/2023 CMP, COMPR EHENS CANDICE METAB OLIC PANEL glucose 84 mg/dL 70 - 100 Not Available [facility] [address] [facility] [address], [place], [address], 12/03/2023 17:36:07 12/03/19 24 12/03/2023 CMP, COMPR EHENS CANDICE METAB OLIC PANEL BUN 24 mg/dL 7 - 25 Not Available [facility] [address] [facility] [address], [place], [address], 12/03/2023 17:36:07 12/03/19 24 12/03/2023 CMP, COMPR EHENS CANDICE METAB OLIC PANEL creatinine 0.6 mg/dL 0.6 - 1.3 Not Available [facility] [address] [facility] [address], [place], [address], 12/03/2023 17:36:07 12/03/19 24 12/03/2023 CMP, COMPR EHENS CANDICE METAB OLIC PANEL BUN/creatini ne ratio 39 calc 10 - 25 high Not Available [facility] [address] [facility] [address], [place], [address], 12/03/2023 17:36:07 12/03/19 24 12/03/2023 CMP, COMPR EHENS CANDICE METAB OLIC PANEL GFR 97 mL/mi n/1.7 3m^2 >60 GFR < 60 mL/mi n for 3 or more month s may be indic ative of Armaan Lynn se. The GFR is based on the CKD-E PI 2020 equat ion. To calcu late the new GFR from a previ ous Creat inine resul t go to: https ://raymond bateman.darya pierson/pr serene sanabria s/kdo qi/gf r&5Fc alcul ator. Not Available [facility] [address] [facility] [address], [place], [address], 12/03/2023 17:36:07 12/03/19 24 12/03/2023 CMP, COMPR EHENS CANDICE METAB OLIC PANEL sodium 143 mmol/ L 135 - 145 Not Available [facility] [address] [facility] [address], [place], [address], 12/03/2023 17:36:07 12/03/19 24 12/03/2023 CMP, COMPR EHENS CANDICE METAB OLIC PANEL potassium 4.6 mmol/ L 3.5 - 5.5 Not Available [facility] [address] [facility] [address], [place], [address], 12/03/2023 17:36:07 12/03/19 24 12/03/2023 CMP, COMPR EHENS CANDICE METAB OLIC PANEL chloride 105 mmol/ L 100 - 115 Not Available [facility] [address] [facility] [address], [place], [address], 12/03/2023 17:36:07 12/03/19 24 12/03/2023 CMP, COMPR EHENS CANDICE METAB OLIC PANEL CO2 29 mmol/ L 21 - 33 Not Available [facility] [address] [facility] [address], [place], [address], 12/03/2023 17:36:07 12/03/19 24 12/03/2023 CMP, COMPR EHENS CANDICE METAB OLIC PANEL calcium 8.7 mg/dL 8.8 - 10.6 low Not Available [facility] [address] [facility] [address], [place], [address], 12/03/2023 17:36:07 12/03/19 24 12/03/2023 CMP, COMPR EHENS CANDICE METAB OLIC PANEL total protein 6.4 g/dL 6.2 - 8.6 Not Available [facility] [address] [facility] [address], [place], [address], 12/03/2023 17:36:07 12/03/19 24 12/03/2023 CMP, COMPR EHENS CANDICE METAB OLIC PANEL globulin 2.4 g/dL 1.3 - 4.0 Not Available [facility] [address], [place], [address], 12/03/2023 17:36:07 12/03/19 24 12/03/2023 CMP, COMPR EHENS CANDICE METAB OLIC PANEL albumin 4.0 g/dL 3.5 - 5.7 Not Available [facility] [address], [place], [address], 12/03/2023 17:36:07 12/03/19 24 12/03/2023 CMP, COMPR EHENS CANDICE METAB OLIC PANEL A/G ratio 1.6 calc 1.0 - 2.8 Not Available [facility] [address], [place], [address], 12/03/2023 17:36:07 12/03/19 24 12/03/2023 CMP, COMPR EHENS CANDICE METAB OLIC PANEL AST (SGOT) 14 U/L 13 - 39 Not Available [facility] [address] [place], [place] [address]y [address], [place], [address], 12/03/2023 17:36:07 12/03/19 24 12/03/2023 CMP, COMPR EHENS CANDICE METAB OLIC PANEL ALT (SGPT) 15 U/L 7 - 52 Not Available [facility] [address], [place], [address], 12/03/2023 17:36:07 12/03/19 24 12/03/2023 CMP, COMPR EHENS CANDICE METAB OLIC PANEL alkaline phosphatase 62 U/L 20 - 128 Not Available [facility] [address] [facility] [address] [place], [address], 12/03/2023 17:36:07 12/03/19 24 12/03/2023 CMP, COMPR EHENS CANDICE METAB OLIC PANEL total bilirubin 0.5 mg/dL 0.3 - 1.0 Not Available [facility] [address] [facility] [address] [place], [address], 12/03/2023 17:36:07 12/03/19 24 12/03/2023 LIPID PANEL W/ CALCU LATED LDL HDL cholestrol 77 mg/dL 23 - 92 Not Available [facility] [address] [facility] [address] [place], [address], 12/03/2023 17:36:09 12/03/19 24 12/03/2023 LIPID PANEL W/ CALCU LATED LDL cholesterol 218 mg/dL <200 high Expec ene resul ts for Adult s: Total Mihaela stero l: Risk class ifica tion < 200 mg/dL Lynnette able 200-2 39 mg/dL Borde rline high >240 mg/dL High Not Available [facility] [address] [facility] [address] [place], [address], 12/03/2023 17:36:09 12/03/19 24 12/03/2023 LIPID PANEL W/ CALCU LATED LDL triglyceride 95 mg/dL 30 - 150 Not Available [facility] [address] [facility] [address] [place], [address], 12/03/2023 17:36:09 12/03/19 24 12/03/2023 LIPID PANEL W/ CALCU LATED LDL non-HDL cholesterol 141 mg/dL <130 high Lynnette able < 130 mg/dL Not Available [facility] [address] [facility] [address] [place], [address], 12/03/2023 17:36:09 12/03/19 24 12/03/2023 LIPID PANEL W/ CALCU LATED LDL chol/HDL risk ratio 3 calc < 5.0 Optim al Not Available [facility] [address], [place], [address], 12/03/2023 17:36:09 12/03/19 24 12/03/2023 LIPID PANEL W/ CALCU LATED LDL LDL calculated 122 mg/dL 0 - 99 high Not Available [facility] [address], [place], [address], 12/03/2023 17:36:09 12/03/19 24 12/03/2023 VENIP UNCTU RE results Compl ete Not Available [facility] [address], [place], [address], 12/03/2023 08:46:38 10/14/19 23 10/13/2022 CT, coron javier calci um score EXAM: CT Heart Screen withou t contra st TECHNI QUE: Multi- slice helica l CT images were obtain ed for evalua tion of the lino ry arteri es. The calcif icatio n score for each artery is propor tional to the amount of calciu m in the lino ry vessel wall. All CT scans are perfor med using radiat ion dose reduct ion techni ques. Techni matt factor s are evalua ene and adjust ed to ensure approp riate modera tion of exposu re. FINDIN GS: Lino ry artery calciu m score as follow s. Score Range is 0 to 10,000 . Left main artery (LM): 0 Left anteri or descen ding artery (LAD): 0 Left circum flex artery (LCX): 0 Right lino ry artery (RCA): 0 Total score: 0 Limite d imagin g throug h the medias tinal region demons trates visual ized lung lemus to appear withou t sizabl e pleura l effusi on. Minor opacit ies in the lingul a may reflec t atelec tasis. No sizabl e perica rdial effusi on. No convin cing lympha denopa thy. Degene rative change s dorsal spine. Small slidin g-type hiatal hernia . IMPRES SHERINE: 1. The total lino ry artery calciu m (Agats ton) score is 0. 2. A lino ry calciu m score of 0 places this patien t in the 0th percen tile rank. That means 100% of the female with ages 66 to 70 will have a higher calciu m scores than this patien t. 3. Regard less of the test result s, it is highly recomm ended that the patien t discus s the findin gs with his/he r physic krys(s) . 4. Calcif ic athero sclero tic plaque s are presen t in the aorta. NOTES: The scores and percen tile pierre g report ed here are intend ed to enable the physic krys to better evalua te a patien t's risk of develo ping sympto matic lino ry artery diseas e. A full evalua tion of cardia c risk should includ e an assess ment of all conven tional risk factor s. The scores and percen tile pierre gs report ed herein should be evalua ene in this contex t. The follow ing table provid es a genera l guidel ine for the interp retati on of the result s. Calciu m Score Interp retati on 0 No eviden ce of plaque . The patien t's risk of a heart attack is very low. 1 - 10 A small amount of plaque is noted. The patien t's risk of a heart attack is low. 11 - 100 Plaque is presen t. The patien t has lino ry artery diseas e, but only mild harden ing in the lino ry arteri es. The patien t's risk for a heart attack is modera te. 101 - 400 Plaque is presen t in a modera te amount . The patien t has lino ry artery diseas e and plaque may be blocki ng a lino ry artery . The patien t's risk for heart attack is modera te to high. Consid er additi onal testin g. Over 400 Plaque is extens candice. The patien t has lino ry artery diseas e and there is a high chance that plaque may be blocki ng one or more of the lino ry arteri es. The patien t's risk is high. Recomm end additi onal testin g. Electr onical ly signed by: Glenroy Berg 023 7:13 PM Electr onical ly Signed By: Caden Mike Michae l Sign Date: [id number] [facility] All Locations, [place], [address], 08/05/2024 19:41:24 12/03/19 24 12/02/2023 US, lower extre mity, nonva scula r, limit ed INDICA TION: Female 68 years. - T14.8X XD Other injury of unspec ified body region , subs. TECHNI QUE: US SOFT TISSUE LT LOWER EXT NON VASCUL AR. Transv erse and longit udinal sonogr aphic images of the LEFT thigh were obtain ed. Dopple r evalua tion was includ ed. COMPAR ANNA: None. FINDIN GS: LEFT side: No solid or cystic nodule s are identi fied. There is no well-d efined hemato ma. IMPRES SHERINE: Unrema rkable ultras ound of the LEFT thigh. Electr onical ly Signed By: Renetta mascorro D.O., Paul Sign Date: [id number] [facility] All Locations, [place], [address], 09/28/2024 14:10:51 Result Notes None recorded. Problems Name Problem SNOMED Code Status Onset Date Resolution Date Notes Provider Name and Address Organization Details Recorded Time Senile osteoporosis 56303090 Active 2022 GLADYS KAISER DO [address], [place], [address], [place] - [facility] [employer] 23:39:07 Hyperlipidemia 08337275 Active 2022 GLADYS KAISER DO [address], [place], [address], [facility], [employer] 3 23:39:09 Cobalamin deficiency 498117560 Active 2022 GLADYS KAISER DO [address], [place], [address], [facility], [employer] 3 23:39:10 Osteoporosis 11904695 Active 2022 GLADYS KAISER DO [address], [place], [address], [facility], [employer] 3 23:39:12 Age related macular degeneration 631651516 Active 2022 GLADYS KAISER DO [address], [place], [address], [facility], [employer] 3 23:39:13 Gastroesophage al reflux disease 031340674 Active 2022 GLADYS KAISER DO [address], [place], [address], [facility], [employer] 3 23:39:15 Allergic rhinitis 24868794 Active 2022 GLADYS KAISER DO [address], [place], [address], [facility], [employer] 3 23:39:16 Paroxysmal atrial fibrillation 265804596 Active 2022 GLADYS KAISER DO [address], [place], [address], [facility], [employer] 3 23:39:18 Supraventricul ar tachycardia 5183469 Active 2022 GLADYS KAISER DO [address], [place], [address], [facility], [employer] 3 23:39:18 Problem Notes None recorded. Procedures Surgical History Date Name Laterality Status Provider Name and Address Organization Details Recorded Time 11/20/19 24 Cardiac Catherization [facility] [employer] 12/01/2023 14:22:58 10/01/19 23 Prolia completed Dong Frey [facility], [employer] 10/01/2022 11:22:58 09/12/20 22 Colonoscopy completed GLADYS KAISER, DO [address], [place], [address], [facility], [employer] 10/01/2022 10:48:52 12/31/19 22 Date of Last Mammogram completed Rosa Matson [facility], [employer] 10/01/2022 09:56:00 12/31/19 22 Mammogram Screening completed GLADYS KAISER DO [address], [place], [address], [facility], [employer] 10/01/2022 10:48:08 subtotal thyroidectomy completed GLADYS KAISER DO [address], [place], [address], [facility], [employer] 10/01/2022 10:54:14 Cholecystectomy completed Elizabeth Ha [facility] [employer] 12/01/2023 14:20:37 Colonoscopy completed Elizabeth Ha [facility], [employer] 12/01/2023 14:20:37 Hysterectomy completed Elizabeth Ha [facility], [employer] 12/01/2023 14:20:38 Other completed Elizabeth Ha [facility], [employer] 12/01/2023 14:20:38 Thyroidectomy completed Elizabeth Ha [facility] [employer] 12/01/2023 14:20:38 Sinus Surgery completed Elizabeth Ha [facility] [employer] 12/01/2023 14:20:38 Mammogram Screening completed Elizabeth Ha [facility], [employer] 12/01/2023 14:20:38 fixation of tendon of foot and/or ankle completed GLADYS KAISER DO [address], [place], [address], [facility], [employer] 12/01/2023 14:41:48 Imaging Results Imaging Date Name Status LastModified by Organiz ation Details LastModified Time 10/13/2022 CT, coronary calcium score completed [id number] [facility] All Locations, [place], [address], 08/05/2024 19:41:24 12/02/2023 US, lower extremity, nonvascular, limited completed [id number] [facility] All Locations, [place], [address], 09/28/2024 14:10:51 Procedure Notes None recorded. Medical Equipment None Reported. Allergies Allergen ID Allergen Name Allergen Category Reaction Reaction Severity Criticality Documentation Date Start Date Code Code System Note Provider Name and Address Organization Details Recorded Time [id number] egg extract food,medi cation edema Not available Not available 10/01/2022 53036 15 RxNorm GLADYS KAISER DO [address] [facility] [address], [place], [address], [facility] - [facility], [employer] 10:34:23 Medications Name Sig Start Date Stop Date Status Note LastModified by Organization Details LastModified Time celecoxib 200 mg capsule Take 1 capsule every day by oral route. active Not Available Not Available No t Available Medrol (Samuel) 4 mg tablets in a dose pack Take 1 dose pk every day by oral route. 11/13 completed Not Available Not Available Not Available flaxseed oil 1,000 mg capsule Take by oral route. active Not Available Not Available No t Available lansoprazol e 30 mg capsule,del ayed release Take 1 capsule every day by oral route. active Not Available Not Available No t Available flecainide 50 mg tablet Take 1 tablet every 12 hours by oral route. 11/30 completed Not Available Not Available Not Available montelukast 10 mg tablet Take 1 tablet every day by oral route. active Not Available Not Available No t Available cyanocobala min (vit B-12) 1,[address] by sublingua l route. active Not Available Not Available No t Available gabapentin 100 mg capsule Take 1 capsule twice a day by oral route. active Not Available Not Available No t Available metoprolol succinate ER 25 mg tablet,exte nded release 24 hr Take 1 tablet every day by oral route. 09/28 completed Not Available Not Available Not Available cefdinir 300 mg capsule Take 1 capsule every 12 hours by oral route for 7 days. 11/13 completed Not Available Not Available Not Available amoxicillin 875 mg-potdamioniu m clavulanate 125 mg tablet Take 1 tablet every 12 hours by oral route for 10 days. 2024 active Not Available Not Available Not Avai lable Reclast active Not Available Not Avail able Not Available Prolia 60 mg/mL subcutaneou s syringe Bring to provider office for administr ation - Inject 1 mL under skin every six(6) months 09/28 completed Not Available Not Available Not Available Eylea 2 mg/0.05 mL intravitrea l solution for injection Inject by intraocul ar route. active Not Available Not Available No t Available azelastine 137 mcg-flutica sone 50 mcg/spray nasal spray [place] 1 spray twice a day by intranasa l route. active Not Available Not Available No t Available Eliquis 5 mg tablet Take 1 tablet twice a day by oral route. active Not Available Not Available No t Available albuterol sulf 90 mcg/actuati on breath activated powder inhaler,sen sor Inhale 2 puffs every 4 hours by inhalatio n route. active Not Available Not Available No t Available Alive Calcium-Vit pack D3 active Not Available Not Available Not Available Vitals Date Recorded Body weight Body mass index (BMI) Body height Pain severity - 0-10 verbal numeric rating [Score] - Reported Oxygen saturation Oxygen saturation in Arterial blood by Pulse oximetry Respiratory rate Heart rate Body temperature Systolic blood pressure Diastolic blood pressure Provider Name and Address Organization Details Last Updated DateTime 3 75492.8 4 g 32.7 kg/m2 154.94 cm 0 99 % 99 % 18 /min 60 /min 98.2 [degF] 108 mm[Hg] 70 mm[Hg] Rosa Matson MA - [facility], [employer] 3 10:04:14 Date Recorded Body height Body mass index (BMI) Body weight Heart rate Oxygen saturation Oxygen saturation in Arterial blood by Pulse oximetry Body temperature Pain severity - 0-10 verbal numeric rating [Score] - Reported Systolic blood pressure Diastolic blood pressure Provider Name and Address Organization Details Last Updated DateTime 4 154.94 cm 33.9 kg/m2 13020.8 3 g 68 /min 96 % 96 % 97.3 [degF] 6 136 mm[Hg] 82 mm[Hg] Elizabeth Ha [facility], [employer] 4 14:13:50 Date Recorded Body height Body mass index (BMI) Body weight Body temperature Oxygen saturation Oxygen saturation in Arterial blood by Pulse oximetry Pain severity - 0-10 verbal numeric rating [Score] - Reported Heart rate Systolic blood pressure Diastolic blood pressure Provider Name and Address Organization Details Last Updated DateTime 5 154.94 cm 33.6 kg/m2 26045.4 4 g 97.4 [degF] 98 % 98 % 2 66 /min 118 mm[Hg] 80 mm[Hg] Nolvia Mejia [facility], [employer] 5 13:17:46 Date Recorded Body height Respiratory rate Body mass index (BMI) Body weight Oxygen saturation Oxygen saturation in Arterial blood by Pulse oximetry Heart rate Body temperature Systolic blood pressure Diastolic blood pressure Provider Name and Address Organization Details Last Updated DateTime 5 154.94 cm 18 /min 33.6 kg/m2 14312.4 4 g 97 % 97 % 76 /min 98.4 [degF] 126 mm[Hg] 78 mm[Hg] Neisha Lutz [facility], [employer] 5 09:52:48 Social History Question Answer Notes LastModified by Organizat ion Details LastModified Time Tobacco Smoking Status Former Smoker Rosa bell [facility] 10/01/2022 09:56:11 Do You Have An Advance Directive? No Information not available 10/01/2022 What Is Your Level Of Alcohol Consumption? Occasional Information not available 10/01/2022 Is Blood Transfusion Acceptable In An Emergency? Yes Information not available 10/01/2022 What Is Your Level Of Caffeine Consumption? Moderate Information not available 10/01/2022 What Type Of Diet Are You Following? REGULAR Information not available 10/01/2022 Which Illicit Or Recreational Drugs Have You Used? No Information not available 10/01/2022 What Is Your Relationship Status? Domestic Partner Information not available 10/01/2022 Are You Sexually Active? No Information not available 10/01/2022 Do You Or Have You Ever Used Smokeless Tobacco? Never Used Smokeless Tobacco Information not available 10/01/2022 Sex: Female Functional Status Question Answer Note LastModified by Organization D etails LastModified Time What is your exercise level? Moderate Information not available 10/01/2022 Mental Status None recorded. Family History Relationship Description Onset Age of this Age Resolved Age Notes LastModified by Organization Details LastModified Time Maternal Grandmother Arthritis dlawston Not available 09:55:45 Mother Hypertensive disorder dlawston Not available 2022 09:55:45 Mother Arthritis dlawston Not availabl e 10/01/2022 09:55:45 Mother Asthma dlawston Not available 0 10/01/2022 09:55:45 Mother Heart disease dlawston Not available 2022 09:55:45 Father Arthritis dlawston Not availabl e 10/01/2022 09:55:45 Father Heart disease dlawston Not available 2022 09:55:45 Brother Squamous cell carcinoma dlawston Not available 2022 09:55:45 Brother Arthritis dlawston Not availab le 10/01/2022 09:55:45 Brother History of dementia dlawston Not available 2022 09:55:45 Brother Hypothyroidi sm dlawston Not available 2022 09:55:45 Brother Hypertensive disorder dlawston Not available 2022 09:55:45 Brother Asthma dlawston Not available 10/01/2022 09:55:45 Brother Heart disease dlawston Not available 2022 09:55:45 Sister Migraine dlawston Not available 10/01/2022 09:55:45 Sister Asthma dlawston Not available 0 10/01/2022 09:55:45 Sister Hypertensive disorder dlawston Not available 2022 09:55:45 Sister Heart disease dlawston Not available 2022 09:55:45 Sister Arthritis dlkaryn Not availabl e 10/01/2022 09:55:45 Medical History No medical history recorded. Gynecological History Statement/Question Response Menses Monthly N STIs/STDs N If Post Menopausal, Age at Menopause 45 Date of Last Mammogram 12/30/2021 Age at First Child 21 Obstetrics History GPAL:G 0 P 0 0 0 0 Past Encounters Encounter ID Performer Location Encounter Start Date Encounter Closed Date Diagnosis/Indication Diagnosis SNOMED-CT Code Diagnosis ICD10 Code Diagnosis Note [id number] GLADYS KAISER, DO [facility] [address] [place] [address] 10/01/2022 09:46:51 10/01/2022 10:59:19 Supraventricular tachycardia 5895917 I47.1 Chronic. Patient states on previous loop recorder is noted to have SVT along with her A. fib which is paroxysmal . Paroxysmal atrial fibrillation 728002868 I48.0 Chronic. Stable with medication s. Following with cardiology . Osteoarthritis 532888500 M19.90 Chronic. Stable w/ meds. Allergic rhinitis 552341 04 J30.9 Chronic stable with medication s. Does seem to be seasonal and duration. Gastroesop hageal reflux disease 819119012 K21.9 Chronic. Stable with medication s. Due to lifelong issues with Celebrex I recommend staying on H2 kendal or PPI. Age relate d macular degeneration 183431745 H35.30 Chronic. Stable with injections . Patient does need to get establishe d here for evaluation s with renal doctor. Osteoporosis 44213413 M8 1.0 . Stable with Prolia injections for numerous years offered refill today patient will look at [facility] and follow-up. Cobalamin deficiency 190 200575 E53.8 Chronic. Stable with oral replacemen t. Hyperlipidemia 34717386 E78.5 Chronic {{complain t conditio n disease finding il lness inju ry problem * symptom sign othe r matter}}, {{stable - at or near unsta ble - not at*}} LDL goal. Needs monitoring . Prescripti on drug management : {{Add meds to current as noted below Begi n meds as noted below Squires ge medication s as noted below Cont inue medication s as in med list Disco ntinue meds as noted No meds given at this time No meds given until results back No rx indicated OTC meds only Pt refuses rx* Restar t meds as noted in prescripti on below}}. Wants opportunit y to get numbers down through alternativ e methods. Understand s increased statistica l increased risk of stroke, heart attack and . {{Continue Improve* Restart}} therapeuti c lifestyle changes and/or medication s to maintain an LDL below 100. Periodic visits and labs and appropriat e therapeuti c changes will occur to help meet this goal to minimize risk of atheroscle rotic disease. Recheck labs as ordered. Senile osteoporosis 1804 0001 M81.0 Chronic. Stable. Will CTM. [id number] DO CHELSEA PRADO [place] [address] [place] [address] 12/01/2023 14:06:45 12/01/2023 15:48:13 Traumatic hematoma 432773624 T14.8XXD Acute traumatic hematoma due to cardiac catheteriz ation. No signs of infection at this point we will get a ultrasound to follow-up on this and patient under ER precaution s as well as return precaution s discussed. [id number] DO CHELSEA PRADO [address] [place] [address] 09/28/2024 13:08:55 09/28/2024 14:19:43 Dysfunction of left eustachian tube 8717717781 613521 H69.92 Acute. PT does have a eustachian tube disorder and nasal congestion . Will start meds and f/u. [id number] Nehemias Bocanegra APRN [facility] [address] [place] [phone] 11/13/2024 09:43:35 11/13/2024 12:47:26 Cough 75503824 R05.9 Rhinitis 94879964 J00 Environmental allergy 42 7259276 T78.49XA Acute sinusitis 41958417 J01.90 positive recurrent sinus infection. start on the above medication as directed . increased po fluids rest tylenol as needed . may use OTC decongasta nt if needed. steam showers, saline nasal spray as needed daily . if no improvemen t during treatment may return here or PCP for re-evaluat ion of symptoms Health Concerns Section Related Observation LastModified by Organization Detai ls LastModified Time None Recorded Concern Status LastModified by Organization Details LastModified Time None Recorded Advance Directives Directive N: Payers Encounter Date Sequence Insurance Name Policy Number Policy Conde Covered Member ID Conde Member ID Guarantor Name 10/01/2022 1 [facility] (MEDICARE REPLACEMENT/A DVANTAGE - PPO) [id number] Clinton Thomas [id number] Clinton Thomas 12/01/2023 1 [facility] (MEDICARE REPLACEMENT/A DVANTAGE - PPO) [id number] Clinton Thomas [id number] Clinton Thomas 09/28/2024 1 [facility] (MEDICARE REPLACEMENT/A DVANTAGE - PPO) [id number] Clinton Thomas [id number] Clinton Thomas 11/13/2024 1 [facility] (MEDICARE REPLACEMENT/A DVANTAGE - PPO) [id number] Clinton Thomas [id number] Clinton Thomas Notes Date Note Type Note Provider Name and Address Organization Details Recorded Time 10/01/2022 text/html Chronic Complain ts follow upReported bypatient.Reason for visit:continued care of chronic complaint(s) Diagnosis:Afib paroxsymal with hypercoaguable state; arthritis osteo; dyslipidemia; GERD; osteoporosis; pain Current status:All well controlled/stable Current control and compliance:All usually well controlled/stable ; usually compliant with regimen; exercising regularly; active lifestyle; eating healthy meals Current symptoms/concerns:none stated QUALITY MEASURE QUESTIONNAIRE ?Are you a diabetic patient ?No ?Has the Patient previously received any type of colorectal cancer screener ?Yes ?Please confirm which of the following colorectal screeners the Patient has received in the past ?Colonoscopy ?Please enter the date you received your last Colonoscopy ?09/12/2022 ?Colonoscopy Result ?Negative ?Mammogram Results ?Negative ?Has the Patient had a bone density testing performed before ?Yes ?Has the Patient been diagnosed as having osteoporosis ?Yes Imported from [employer] on 10/01/2022 GLADYS KAISER DO [address], [place], [address], [employer] 10/05/2022 23:39:32 12/01/2023 text/html QUALITY MEASURE QUESTIONNAIRE ?Has the Patient had a fracture in the last year ?No Imported from [employer] on 12/01/2023 The patient is here today to this on the left leg bruising. Patient really had a recent heart catheterization and then about 1 week later she developed this left distal medial hematoma. There is no again but is definitely enlarged over the last couple weeks. She called the surgeon mass question is for infection and she seemed to do okay patient came in for further evaluation. GLADYS KAISER DO [address], [place], [address], [employer], [employer] 12/02/2023 09:51:56 09/28/2024 text/html Ear ComplaintRep orted bypatient.Reason for visit:acute complaint Location:left ear Quality:pain; hearing loss Severity:unchanged Duration:constant Onset/Timing:abrupt;4 days ago Context:recent exposure to ill contacts;recent air travel Alleviating factors:nothing; sneezing Aggravating factors:nothing Associated Symptoms:head congestion; no fever; no swollen lymph nodes; no exudates; no jaw pain GLADYS KAISER DO [address], [place], [address], [facility] [employer] [facility], [employer] 09/28/2024 14:11:41 11/13/2024 text/html 69 y o f present s states that she was treated for sinus infection still has ear pain sinus pressure mild cough denies fever Nehemias Bocanegra, SIRI [address], [place], [address], [facility], [employer] 11/13/2024 10:24:38 OBGyn Episode No OBEpisode recorded.
[2025-01-16 12:55] LABS: N-Telopeptide 53 (see note); NTXCreaRU 45 mg/dL (20-275)
== END 2025-01-10 07:41 | disposition home or self-care (01) ==
LOC: HO.HMGCLNP 07:40
PROVIDERS: PCP Physician Assistant; Visit Provider Student in an Organized Health Care Education/Training Program
DX: M81.0 Age-related osteoporosis without current pathological fracture (principal)
CPT/HCPCS: 82523

== ENCOUNTER → 2025-01-31 08:22 | Outpatient (RCR) | payer MEDICARE, SELFPAY | END | disposition home or self-care (01) | LOC: HO.PTCHIC 07-13 07:48 | PROVIDERS: PCP Internal Medicine; Visit Provider Internal Medicine | DX: M54.2 Cervicalgia (principal) | CPT/HCPCS: 97110; 97140; 97161 ==

== ENCOUNTER 2025-02-08 09:09 | Outpatient (REF) | payer MEDICARE, SELFPAY ==
--- OUTSIDE RECORDS SUMMARY | 2025-02-08 09:44 | XMS_ITS | Encounter Summary ---
Author Organization [facility] Address [address] [place] [phone] Care Team Providers Care Beef Ribber Name Role Phone Louis Quijano Primary Care Provider [phone] Reason for Referral * Imaging (Routine) - Closed Specialty Diagnoses / Procedures Referred By Contac t Referred To Contact Radiology Diagnoses Age-related osteoporosis without current pathological fracture Procedures BD Bone Density DXA Appendicular Skeleton Kriss Stokes MD [address] [place] [address] Phone: tel: fax: [facility] Referral ID Status Reason Start Date Expiration Date Visits Re quested Visits Authorized [id number] Closed 02/02/2025 02/02/2026 1 1 Reason for Visit * Imaging (Routine) - Closed Specialty Diagnoses / Procedures Referred By Satish t Referred To Contact Radiology Diagnoses Age-related osteoporosis without current pathological fracture Procedures BD Bone Density DXA Appendicular Skeleton Kriss Stokes MD [address] [place] [address] Phone: tel: fax: [facility] Referral ID Status Reason Start Date Expiration Date Visits Re quested Visits Authorized [id number] Closed 02/02/2025 02/02/2026 1 1 Encounter Details Date Type Department Care Team (Latest Contact Info) Description 02/02/2025 8:08 AM EDT - 02/02/2025 11:59 PM EDT Hospital Encounter [facility] Bone Density [address] [place] [id number] Age-related osteoporosis without current pathological fracture Discharge Disposition: Home or Self Care Social History Tobacco Use Types Packs/Day Years Used Date Smoking Tobacco: Never Assessed Comments No Sex and Gender Information Value Date Recorded Sex Assigned at Female 01/13/2025 4:36 PM EDT Legal Sex Female 7:27 AM EST Gender Identity Female 01/13/2025 4:36 PM EDT Sexual Orientation Choose not to disclose 2024 4:36 PM EDT documented as of this encounter Discharge Disposition Disposition Code Departure Means Destination Home or Self Care documented in this encounter Plan of Treatment Not on file documented as of this encounter Procedures Procedure Name Priority Date/Time Associated Diagnosis Comments BD BONE DENSITY DXA APPENDICULAR SKELETON Routine 02/02/2025 8:39 AM EDT Age-related osteoporosis without current pathological fracture documented in this encounter Results * BD Bone Density DXA Appendicular Skeleton (02/02/2025 8:39 AM EDT) Anatomical Region Laterality Modality Body Bone Densitometr y 02/03/2025 7:47 AM EDT Impressions 02/03/2025 7:49 AM EDT Impression: Osteoporosis. ??There has been a decrease of 8.9% in bone mineral density since the prior examination of 01/07/2023. Code 80252 -------- FINAL REPORT -------- Dictated By: Bam Sanchez Dictated Date: 02/03/2025 07:47 ET Assigned Physician: Bam Sanchez Reviewed and Electronically Signed By: Bam Sanchez Signed Date: 02/03/2025 07:49 ET Workstation ID: [id number] Transcribed By: Self Edit Transcribed Date: 02/03/2025 07:47 ET Narrative 02/03/2025 7:49 AM EDT HISTORY: ??The patient is a 69-year-old postmenopausal female with clinical concern for metabolic bone disease. FINDINGS: ??Dual energy x-ray absorptiometry of the left forearm is performed. The mean bone mineral density at the distal one third of the left radius is 0.534 gm/cm2 which is 60% of that of young normals and 73% of that of age matched controls. This yields a T-score of -4.0 and a Z-score of -2.2 which is diagnostic of osteoporosis. Procedure Note Bam Sanchez MD - 02/03/2025 HISTORY: The patient is a 69-year-old postmenopausal female with clinicalconcern for metabolic bone disease. FINDINGS: Dual energy x-ray absorptiometry of the left forearm isperformed. The mean bone mineral density at the distal one third of theleft radius is 0.534 gm/cm2 which is 60% of that of young normals and 73%of that of age matched controls. This yields a T-score of -4.0 and aZ-score of -2.2 which is diagnostic of osteoporosis. IMPRESSION: Impression: Osteoporosis. There has been a decrease of 8.9% in bonemineral density since the prior examination of 01/07/2023. Code 96487 -------- FINAL REPORT -------- Dictated By: Bam Sanchez Dictated Date: 02/03/2025 07:47 ET Assigned Physician: Bam Sanchez Reviewed and Electronically Signed By: Bam Sanchez Signed Date: 02/03/2025 07:49 ET Workstation ID: [id number] Transcribed By: Self Edit Transcribed Date: 02/03/2025 07:47 ET Kriss Stokes MD IMG DXA PROCEDURES Final Result documented in this encounter Visit Diagnoses Diagnosis Age-related osteoporosis without current pathological fracture documented in this encounter Care Teams Beef Ribber Relationship Specialty Start Date End Date Louis Quijano PA [address] [place] [address] PCP - General Physician Tower Observer 01/12/25 documented as of this encounter
[2025-02-08 14:12] LABS: Alanine Aminotransferase 33 U/L (0-31); Albumin Level 4.1 g/dL (3.5-5.0); Alkaline Phosphatase 91 U/L (39-117); Anion Gap 12 (12-20); Aspartate Amino Transferase 27 U/L (5-31); Bilirubin Total 0.3 mg/dL (0.0-1.0); Blood Urea Nitrogen 18 mg/dL (9-16); Calcium 9.3 mg/dL (8.4-10.2); Carbon Dioxide 29 mmol/L (22-29); Chloride 104 mmol/L (96-108); Cholesterol 212 mg/dL (<200); Estimated Glomerular Filt Rate > 60; Glucose Fasting 89 mg/dL (60-99); HDL Cholesterol 71 mg/dL (>40); LDL Cholesterol Calculated 128 mg/dL (<100); Potassium 4.4 mmol/L (3.3-5.1); Sodium 141 mmol/L (135-145); TSH reflex Free T4 1.97 uIU/mL (0.32-4.0); Total Protein 6.9 g/dL (6.5-8.0); Triglycerides 65 mg/dL (<150); Vitamin D 25-OH Total 77.9 ng/mL (>30)
[2025-02-08 14:28] LABS: Folate 10.9 ng/mL (> or = 4.0); Vitamin B12 664 pg/mL (200-900)
== END 2025-02-08 09:10 | disposition home or self-care (01) ==
LOC: HO.HMGCLDS 09:09
PROVIDERS: PCP Physician Assistant; Visit Provider Physician Assistant
DX: E78.2 Mixed hyperlipidemia (principal); E53.8 Deficiency of other specified B group vitamins; E55.9 Vitamin D deficiency, unspecified; E04.2 Nontoxic multinodular goiter
CPT/HCPCS: 36415; 80053; 80061; 82306; 82607; 82746; 84443

== ENCOUNTER 2025-02-13 08:07 | Outpatient (AMB) | payer MEDICARE, SELFPAY ==
--- OUTSIDE RECORDS SUMMARY | 2025-02-13 08:13 | XMS_ITS | Data Portability ---
Author Organization [facility], [facility] Address [address] [place] [address] Care Team Providers Care Cloth Finisher Name Role Phone LESLY DAVISON Primary Care Provider [phone] Assessment Encounter Date Assessment Date Assessment LastModified [...] obtained and reviewed by me today at [facility], demonstrating healed right talonavicular and subtalar arthrodesis. [...] guided left third TMT cortisone injection by [facility] radiology. I will plan to see her [...] obtained and reviewed by me today at [facility], demonstrating healed right talonavicular and subtalar arthrodesis. [...] guided left third TMT cortisone injection by [facility] radiology. I will plan to see her [...] condition, to please contact our office immediately. [email or web address] Not available 08/02/2024 09:50:31 08/30/2024 08/30/2024 CHIEF [...] a left third TMT cortisone injection by [facility] radiology that was not beneficial. She requested [...] FOOT WB, 2V ANKLE WB 2023 024 [facility], [address], [address], [place], [address], 06/01/2024 16:40:51 XR, ankle, 2 view 2023 024 [facility] [employer] [facility], [address], [address], [place], [address], 06/01/2024 16:40:51 XR, lumbar spine, 2 view - RM 301 LUMBAR SPINE 2 VIEW 2023 024 [facility] [employer] [facility], [address], [address], [place], [address], 04/14/2024 11:26:29 XR, hip, unilatera l, 2 or 3 view - RM 301 JUAN CARLOS HIPS 2023 024 [facility], [address], [facility] [address], [place], [address], 04/14/2024 11:26:29 Medication Orders compounde d medicatio n 2023 024 [facility], [address] [place], [address], 08/30/2024 12:51:26 gabapenti n 100 mg capsule [address] [id number], [address] [place] [address], [id number], 08/02/2024 12:17:10 Patient TargetsNo targets recorded. Patient InstructionsNo instructions recorded. Reason for Referral None Reported. Results Created Date Observation Date Name Description Value Unit Range Abnormal Flag Note LastModifiedBy Organization Detail LastModifiedTime 03/10/20 24 03/10/2024 XR, lumba r spine , 2 view [email or web address]:/ [email or web address] ?Encry pted=s hAaTro YD8dLq bEUv6g %2BXZw aYqtaq 0bqfl% 2Fg9IQ a4ajBk vP9nXo QUaueC m3YtLR FvZlgJ JJ8mAn HZtai3 1n5291 AC0Kpa niGUqb eUC8mr 84%3D INTERFACE [facility] [address], [place], [address], 03/10/2024 13:27:20 03/10/20 24 03/10/2024 XR, lumba r spine , 2 view [email or web address] ?Encry pted=s hAaTro YD8dLq bEUv6g %2BXZw aYqtaq 0bqfl% 2Fg9IQ a4ajBk vP9nXo QUaueC m3YtLR FvZlgJ JJ8mAn HZtai3 9v5697 AC0Kpa niGUqb eUC8mr 84%3D INTERFACE [facility] [address], [place], [address], 03/10/2024 13:27:22 05/10/20 24 05/10/2024 XR, foot, 3 or more view [email or web address] ?Encry pted=s hAaTro YD8dLq bEUv6g %2BXZw aYqtaq 0bqfl% 2Fg9IQ a4ajBk vP9nXo QUaueC m3YtLR FvZlJ J8Crawley HZtai3 6y5283 AC0Krb nyEUKD eUC8mr 84%3D INTERFACE [facility] [address], [place], [address], 05/10/2024 10:30:51 05/10/20 24 05/10/2024 XR, foot, 3 or more view [email or web address] ?Encry pted=s hAaTro YD8dLq bEUv6g %2BXZw aYqtaq 0bqfl% 2Fg9IQ a4ajBk vP9nXo QUaueC m3YtLR FvZl JJ8Crawley HZtai3 6g0698 AC0Krb nyEUKD eUC8mr 84%3D INTERFACE [facility] [address], [place], [address], 05/10/2024 10:30:53 05/10/20 24 05/10/2024 XR, ankle , 2 view [email or web address] ?Encry pted=s hAaTro YD8dLq bEUv6g %2BXZw aYqtaq 0bqfl% 2Fg9IQ a4ajBk vP9nXo QUaueC m3YtLR FvZlgJ JJ8mAn HZtai3 2c2486 AC0Krb nyEUKH eUC8mr 84%3D INTERFACE [facility] [address], [place], [address], 05/10/2024 10:32:53 05/10/20 24 05/10/2024 XR, ankle , 2 view [email or web address]:/ [email or web address] ?Encry pted=s hAaTro YD8dLq bEUv6g %2BXZw aYqtaq 0bqfl% 2Fg9IQ a4ajBk vP9nXo QUaueC m3YtLR FvZlgJ JJ8mAn HZtai3 6e1316 AC0Krb nyEUKH eUC8mr 84%3D INTERFACE [facility] [address], [place], [address], 05/10/2024 10:32:55 05/13/20 24 06/09/2023 imagi ng/di agnos tic resul t No observ ation record ed. [email or web address] Not Available 04/16 19:46:46 05/13/20 24 01/22/2022 imagi ng/di agnos tic resul t No observ ation record ed. [email or web address] Not Available 04/16 19:46:59 05/19/2005/19/2024 fluor oscop ic guide d injec tion (PROC ) No observ ation record ed. STEFAN Hung [address] [place] [address], [place], [address], 05/19/2024 13:49:45 Result Notes None recorded. Problems Name Problem SNOMED Code Status Onset Date Resolution Date Notes Provider Name and Address Organization Details Recorded Time No complaints 702669041 Active Status : 'I'; Not Available [facility] 09:17:31 Problem Notes None recorded. Medical Equipment None Reported. Allergies Allergen ID Allergen Name Allergen Category Reaction Reaction Severity Criticality Documentation Date Start Date Code Code System Note Provider Name and Address Organization Details Recorded Time 36256 acetamino phen / oxycodone medicatio n Not available Not available Not available 11/16/20232009 57451 3 RxNorm Aller gyRea ction : 'Skin React ion'; Not Available [facility] 4 13:39:44 34152 codeine medicatio n Not available Not available Not available 11/16/20232014 2670 RxNorm Aller gyRea ction : 'Skin React ion'; Not Available [facility] 4 13:39:44 75301 wheat preparati on food,medi cation Not available Not available Not available 11/16/20232021 70868 52 RxNorm Not Available [facility] 4 13:39:44 88395 egg extract food,medi cation Not available Not available Not available 11/16/20232014 77869 15 RxNorm Not Available [facility] 4 13:39:44 50194 Milk (substanc e) food,medi cation Not available Not available Not available 11/16/20232014 88079 002 SNOMED Not Available [facility] 4 13:39:44 Medications Name Sig Start Date Stop [...] Updated DateTime 03/10/2024 156.21 cm 32.2 kg/m2 00052.48 g Yuki Saavedraz [facility] 03/10/2024 13:22:48 Date Recorded Body height Body mass index (BMI) Body weight Provider Name and Address Organization Details Last Updated DateTime 05/10/2024 156.21 cm 32.2 kg/m2 50370.48 g REMINGTON Russo [facility] 05/10/2024 10:28:49 Date Recorded Body height Body mass index (BMI) Body weight Provider Name and Address Organization Details Last Updated DateTime 08/02/2024 156.21 cm 32.2 kg/m2 80874.48 g Emilialay De La O [facility] 08/02/2024 09:50:24 Date Recorded Body height Body mass index (BMI) Body weight Provider Name and Address Organization Details Last Updated DateTime 08/30/2024 156.21 cm 32.2 kg/m2 97382.48 g REMINGTON Russo [facility] 08/30/2024 10:22:15 Social History None recorded. Functional Status None recorded. Mental Status None recorded. Family History Nothing Reported. Medical History No medical history recorded. Gynecological HistoryNo gynecological history recorded. Obstetrics History GPAL:G 0 P 0 0 0 0 Past Encounters Encounter ID Performer Location Encounter Start Date Encounter Closed Date Diagnosis/Indication Diagnosis SNOMED-CT Code Diagnosis ICD10 Code Diagnosis Note [id number] REJI Abdalla [address] [place] [address] 03/10/2024 12:36:59 04/14/2024 11:26:28 Low back pain 205215341 M54.50 [id number] MD Ladan Valdes [address] [place] [address] 05/10/2024 10:06:16 06/01/2024 16:40:51 Foot pain 90570414 M79.672 Overriding toes 39389559 3 M20.5X9 Arthritis of left foot 3669238372 968918 M13.317 [id number] Marry Pop PA-C [facility] [address] [place] [address] 08/02/2024 09:06:40 08/18/2024 10:01:29 Arthritis of left foot 9255947053 087475 M13.872 Cervical radiculopathy 86872668 M54.12 Osteoarthr itis of left foot 5170834944 307001 M19.496 [id number] [facility] [address] [address] [place] [address] 08/30/2024 09:53:00 09/22/2024 09:21:05 Arthritis of left foot 9903988517 261443 M19.072 Health Concerns Section Related Observation LastModified by Organization Detai ls LastModified Time None Recorded Concern Status LastModified by Organization Details LastModified Time None Recorded Advance Directives Directive None Recorded Payers Encounter Date Sequence Insurance Name Policy Number Policy Conde Covered Member ID Conde Member ID Guarantor Name 03/10/2024 1 [facility] (MEDICARE REPLACEMENT/A DVANTAGE - PPO) [id number] Clinton Thomas [id number] Clinton Thomas 05/10/2024 1 [facility] (MEDICARE REPLACEMENT/A DVANTAGE - PPO) [id number] Clinton Thomas [id number] Clinton Thomas 08/02/2024 1 [facility] (MEDICARE REPLACEMENT/A DVANTAGE - PPO) [id number] Clinton Thomas [id number] Clinton Thomas 08/30/2024 1 [facility] (MEDICARE REPLACEMENT/A DVANTAGE - PPO) [id number] Clinton Thomas [id number] Clinton Thomas Notes Date Note Type Note [...] REPORT: X-rays ordered, obtained and reviewed at [facility]. 2 views of the lumbar spine reveal [...] up in 6-8 weeks will be arranged. [facility] speech recognition enterprise software developer software was used to create portions of this document. An attempt at proofreading has been made to minimize errors. Please call for corrections. Kathleen Landaverde PA-C [address] [facility] [address], [place], [address], [facility] - [facility] 03/10/2024 13:52:51 08/02/2024 text/html [...] at this point. She has been wearing [employer] sneakers. She is here today to discuss [...] this plan. All questions were answered.Speech recognition enterprise software developer software was used to create portions of this document. An attempt at proofreading has been made to minimize errors. Please call for corrections. Marry Pop PA-C [address] [place] [place] [address] [address], [place], [address], [facility] 08/02/2024 09:58:16 OBGyn Episode No OBEpisode recorded.
--- NOTE | 2025-02-13 08:16 | MHC.PC.OV ---
Vital Signs 02/13/25 08:18 Height 5 ft 2 in Weight 178 lb 2 oz BMI 32.6 BP 132/72 Blood Pressure Location Lt brachial Position Sitting Pulse 80 Pulse Source Pulse Oximeter Temp 97.3 F Temp Source Temporal Artery Scan Pulse Oximetry (%) 98 Oxygen Delivery Method Room Air Intake Visit Reasons: 6 Months f/u Intake Note: Patient is here to follow up on GERD, HLD, Asthma. Software Test Technician Required: No Bean Sprout Laborer: Not Required per policy Accompanied by: Self / Same As Patient Allergies oxycodone [From Percocet] Allergy (Mild, Verified 02/13/25 08:32) NAUSEA,HIVES,THROWING UP/ codeine [Codeine] Adverse Reaction (Mild, Verified 02/13/25 08:32) Constipation dairy protein Allergy (Severe, Uncoded 02/13/25 08:32) Diarrhea dairy,eggs, wheat,nuts,mold Allergy (Severe, Uncoded 02/13/25 08:32) Diarrhea Medication List - Last Reconciled 02/13/25 by Louis Quijano PA-C albuterol sulfate 90 mcg/actuation (ProAir HFA) 2 inhalations inhalation QID PRN calcium carbonate-vitamin D3 600 mg-10 mcg (400 unit) (Calcium with Vitamin D) 1 tab PO DAILY celecoxib 200 mg PO DAILY 90 days cyanocobalamin (vitamin B-12) 1,000 mcg IM .twice a month gabapentin 200 mg PO BEDTIME PRN lansoprazole 30 mg PO DAILY 90 days montelukast 10 mg PO DAILY 90 days syringe with needle (Easy Touch) Use to inject twice a month Tobacco use date assessed: 02/13/25 Fall risk assessment: No Falls in past year Last assessed Fall Risk: 02/13/25 Dental Screening Dental Screen Date: 02/13/25 Did you have a dental visit in the last 12 months?: Yes Did you have a dental problem in the last 6 months where you did not have access to dental care?: No Was dental information given to patient?: Patient has dentist HPI 6 Months f/u HPI Details Patient is 69-year-old female here today for follow-up visit Patient's past medical history significant for AFib, osteoporosis, history of foot surgery, hyperlipidemia, GERD, 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 Lumbar radiculopathy: The patient reports chronic back pain with numbness and weakness, primarily affecting the left leg, suspected to be lumbar radiculopathy, impacting her activities and causing sleep disturbances. While physical therapy was considered, she has not initiated it primarily due to frustration with specialist waiting times and inefficiencies. .. Obesity: Patient has lost a few lb since last office visit. She has been reducing her portions and being physically active though she is discouraged that she has not lost much weight. She is interested a GLP 1 to help her lose 10-15 lb. PLAN: Will try zepbound to see if we get insurance coverage. .. 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 (DR Edmond) Continues on rate control with metoprolol. Has underwent a cardioversion which seems to have been successful. She is stopped flecainide. . She currently is not on any anticoagulation at this time. She will ask her supervisor pole yard about anticoagulation. .. Hyperlipidemia: Continues to manage her cholesterol with lifestyle and dietary modifications. Lipid panel showing borderline high total cholesterol and LDL., she reports no change in her diet though since being taken off of flecainide her cholesterol has improved .. Osteoporosis: Currently taking Prolia on a every 6 months basis through Endocrine. She has establish care with endocrinology and has been started on vitamin-D and calcium supplementation. Laboratory Tests 03/28/24 08/04/24 01/10/25 06:45 07:58 07:40 Creatinine ALT 24 Cholesterol 199 LDL Cholesterol, C alc 117 H TSH Urine Creatinine 67 45 02/08/25 09:38 Creatinine 0.61 ALT 33 H Cholesterol 212 H LDL Cholesterol, C alc 128 H TSH 1.97 Urine Creatinine [facility] Medical History On beta kendal at home Atrial fibrillation Vitamin B 12 deficiency Multinodular thyroid Osteoporosis Vitamin D deficiency Lymphadenopathy of head and neck Neck pain Normal colonoscopy History of mammogram Asthma Hyperlipidemia GERD (gastroesophageal reflux disease) Arrhythmia Surgical History History of surgery History of lumpectomy of both breasts Hx of cholecystectomy History of esophagogastroduodenoscopy (EGD) H/O colonoscopy History of thyroidectomy S/P foot surgery, right History of rotator cuff surgery Carpal tunnel syndrome H/O arthroscopy of right knee History of breast biopsy History of hysterectomy Family History Father CAD (coronary artery disease) CVD (cardiovascular disease) Mother No problems noted. Brother Cancer Sister Liver cancer CVD (cardiovascular disease) Breast cancer Other Mental health disorder Social History Housing: House Alcohol intake: current Alcohol intake frequency: holidays/special occasions only Patient Tobacco Use Status: Former Tobacco user Tobacco use type: Cigarette Cigarettes Per Day: 5 Years Smoked: 35 e-Cigarette/Vaping Use: Never Used Second Hand Smoke Exposure: Yes service: No Current occupational status: retired Cognitive needs: No Hearing needs: No Vision needs: Yes (Glasses) Questionnaire PHQ-9 Over the last 2 weeks, how often have you been bothered by any of the following problems? 1. Little interest or pleasure in doing things: not at all 2. Feeling down, depressed, or hopeless: not at all 3. Trouble falling or staying asleep, or sleeping too much: several days 4. Feeling tired or having little energy: several days 5. Poor appetite or overeating: not at all 6. Feeling bad about yourself - or that you are a failure or have let yourself or your family down: not at all 7. Trouble concentrating on things, such as reading the newspaper or watching television: not at all 8. Moving or speaking so slowly that other people could have noticed. Or the opposite - being so fidgety or restless that you have been moving around a lot more than usual: not at all 9. Thoughts that you would be better off or of hurting yourself in some way: not at all Total score: 2 Depression Screening Interpretation: Negative Depression Screening Done: Yes 45413 - PHQ-9 Billing: Yes Source: Developed by Drs. Javier Bernal, Neisha Mejia, Gaurav Gardner and colleagues, with an educational samantha from [employer]. Thrive Questionnaire Date Thrive assessed: 02/08/25 I am a: Patient What is your living situation today?: I have a steady place to live Within the past 12 months, did the food you bought not last and you didn't have the money to get more?: Never true Within the past 12 months, did you worry whether your food would run out before you got money to buy more?: Never true Do you have trouble paying for medicines?: No Do you have trouble getting transportation to medical appointments?: No Do you have trouble paying your heating and electricity bill?: No Do you have trouble taking care of your child, family member or friend?: No Do you have trouble with day-to-day activities such as bathing, preparing meals, shopping, managing finances, etc.?: No Are you currently unemployed and looking for a job?: No Are you interested in more education?: Yes Please select the resources that you would like help with: None Currently or been in a relationship where the following occur: No concerns reported THRIVE Score: 0 AUDIT C Alcohol Use Questionnaire (AUDIT-C) 1. How often do you have a drink containing alcohol?: Monthly or less 2. How many drinks containing alcohol do you have on a typical day when you are drinking?: 1 or 2 3. How often do you have six or more drinks on one occasion?: Never Total Score: 1 ELIUD-7 AMB Questionnaire ELIUD-7 Date ELIUD - 7 assessed: 02/13/25 Feeling nervous, anxious, or on edge: 0 = Not at all Not being able to stop or control worryin = Not at all Worrying too much about different things: 0 = Not at all Trouble relaxin = Not at all Being so restless that it is hard to sit still: 0 = Not at all Becoming easily annoyed or irritable: 0 = Not at all Feeling afraid as if something awful might happen: 0 = Not at all Total ELIUD-7 score (0-4 normal; 5-9 mild; 10-14 moderate; 15-21 severe): 0 Source: Developed by Drs. Javier Bernal, Neisha Mejia, Gaurav Gardner and colleagues, with an educational samantha from [employer]. ELIUD-7 Assessment Billing ELIUD-7 Assessment Tool: ELIUD-7 Assessment 57527 Review of Systems Const Denies headache(s) Eyes Denies loss of vision ENT Denies vertigo, Denies dizziness, Denies headache(s) and Denies sore throat Card Denies chest pain, Denies leg edema and Denies lightheadedness Resp Denies cough, Denies hemoptysis and Denies wheezing GI Denies abdominal pain, Denies melena, Denies constipation, Denies diarrhea and Denies vomiting Denies urinary frequency, Denies dysuria and Denies urinary urgency Musc Denies arthralgias, Denies joint swelling, Denies numbness and Denies tingling Neuro Denies Abnormal speech present, Denies behavioral changes, Denies vertigo, Denies dizziness, Denies headache(s), Denies loss of vision, Denies memory loss, Denies numbness and Denies tingling Psych Denies anxiety, Denies behavioral changes, Denies depression, Denies memory loss and Denies panic attacks Luis Enrique/Lymph Denies easy bleeding and Denies easy bruising Aller/Immun Denies wheezing Physical exam (Primary Care) Vital Signs: Last Vital Signs Temp 97.3 F 02/13/25 08:18 Pulse 80 02/13/25 08:18 BP 132/72 02/13/25 08:18 Pulse Ox 98 02/13/25 08:18 Oxygen Delivery Method Room Air 02/13/25 08:18 BMI result Body Mass Index 32.6 BMI Assessment/Plan discussion: High BMI High, discussed plan: lifestyle, weight reduction, dietary and physical activity Tobacco/Smoking Status: Tobacco use Status Tobacco use date assessed 02/13/25 02/13/25 08:23 Patient Tobacco Use Status Former Tobacco user 02/13/25 08:23 Tobacco use type Cigarette 02/13/25 08:23 e-Cigarette/Vaping Use Never Used 02/13/25 08:23 PHQ-9: PHQ-9 Score PHQ-9: Total score 2 02/13/25 08:23 Depression Screening Interpretation: Negative Thrive Assessment: Date of Thrive Assessment Date Thrive assessed 02/08/25 02/13/25 08:23 Currently or been in a relationship where the following occur: No concerns reported Const General: healthy appearing, no acute distress, alert and awake Nutritional Appearance: well nourished Orientation/consciousness: oriented to person, oriented to place and oriented to time HENMT Ears: TM's normal bilaterally General nose exam: Normal nasal mucous membranes and turbinates present Eyes Conjunctivae: conjunctivae normal Sclerae: sclerae normal Pupils: Equal, round and reactive pupils present Neck Neck: Yes no lymphadenopathy and Yes no JVD Thyroid: Thyroid normal Carotids: no bruits Resp Effort & Inspection: normal respiratory effort and not tachypneic Auscultation: no crackles, no rales, no rhonchi and no wheezes Cardio Rate: regular rate Rhythm: regular rhythm Heart sounds: no murmurs and normal S1 and S2 GI Palpation (GI): Soft to palpation, nontender, no hepatomegaly and no splenomegaly Auscultation: normal bowel sounds Back/Spine/Pelvis Other: LIMITED RANGE OF MOTION LUMBAR SPINE DUE TO PAIN AND STIFFNESS REPORTED NUMBNESS AND TINGLING DOWN LEFT LOWER EXTREMITY. Skin General skin exam: no rashes or lesions noted and dry skin Neuro General: oriented to person, oriented to place and oriented to time Cranial nerves: Yes Equal, round and reactive pupils present Speech: No Abnormal speech present Gait exam (Neuro): Normal gait present Motor exam (neuro): no tremor noted Extrem Right upper extremity: full ROM Left upper extremity: full ROM Right lower extremity: full ROM; no edema Left lower extremity: full ROM; no edema Psych Mental Status: mental status grossly normal Speech and movement: Normal speech and movement present Affect: normal affect Attitude: cooperative Thought process: Normal thought process present Coding Level of Care Code Est Pt Level 4 (89564) Diagnoses Paroxysmal atrial fibrillation I48.0 Atrial fibrillation type: paroxysmal Age-related osteoporosis without current pathological fracture M81.0 Osteoporosis type: age-related Presence of current pathological fracture: without current pathological fracture Multinodular thyroid E04.2 Mixed hyperlipidemia E78.2 Hyperlipidemia type: mixed hyperlipidemia Lumbar radiculitis M54.16 Class 1 obesity E66.811 Additional Codes PHQ-9 - 15929 - PHQ-9 Billing: Yes ([id number]) ELIUD-7 Assessment Billing - ELIUD-7 Assessment Tool: ELIUD-7 Assessment [id number] ([id number]) Assessment & Plan Assessment & Plan (1) Atrial fibrillation: Code(s): I48.91 - Unspecified atrial fibrillation Category: Medical Qualifiers: Atrial fibrillation type: paroxysmal Qualified Code(s): I48.0 - Paroxysmal atrial fibrillation Plan: Patient continues to follow cardiology. She rarely has any heart palpitations. She was previously on flecainide and anticoagulation though seems to have side effects. (2) Osteoporosis: Code(s): M81.0 - Age-related osteoporosis without current pathological fracture Category: Medical Qualifiers: Osteoporosis type: age-related Presence of current pathological fracture: without current pathological fracture Qualified Code(s): M81.0 - Age-related osteoporosis without current pathological fracture Plan: Patient continues to follow Endocrinology in his on calcium and vitamin-D supplementation. (3) Multinodular thyroid: Comment: Status post partial thyroidectomy 2019 Code(s): E04.2 - Nontoxic multinodular goiter Category: Medical Plan: Patient followed by endocrinology. Most recent TSH stable (4) Hyperlipidemia: Comment: intolerant to Simvastatin, body aches-- Code(s): E78.5 - Hyperlipidemia, unspecified Category: Medical Qualifiers: Hyperlipidemia type: mixed hyperlipidemia Qualified Code(s): E78.2 - Mixed hyperlipidemia Plan: Most recent lipid panel showing slightly elevated total cholesterol and LDL. She believes that her cholesterol elevation was due to side effects of medication. She will continue working on lifestyle and dietary modifications. Goal LDL is to remain below 130 (5) Lumbar radiculitis: Code(s): M54.16 - Radiculopathy, lumbar region Category: Medical Plan: Patient continues to have left lower extremity pain particularly and top of for foot. She does report having chronic back pain. She has gotten x-rays of her lumbar spine that did show L5-S1 spondylosis. Fortunately she continues to have left lower extremity numbness and pain. She has been using gabapentin with some minimal relief. Does seem to have a L5-S1 distribution of her pain. Will try for MRI to evaluate for disc herniation in the lower lumbar spine. (6) Class 1 obesity: Code(s): E66.811 - Obesity, class 1 Category: Medical Plan: Pharmacological support for weight management was discussed, pending insurance approval for semaglutide. Continued lifestyle modifications will be essential. Orders: Orders MR lumbar spine wo con Today M54.16 - Radiculopathy, lumbar region PT Evaluation and Treatment Today M51.9 - Unspecified thoracic, thoracolumbar and lumbosacral intervertebral disc disorder, M54.16 - Radiculopathy, lumbar region Medications: New tirzepatide (weight loss) (Zepbound) for 4 weeks 2.5 mg (0.5 mL) subcut QWEEK 4 weeks 2 mL 0RF E66.811 - Obesity, class 1 tirzepatide (weight loss) (Zepbound) for 4 weeks 2.5 mg (0.5 mL) subcut QWEEK 4 weeks 2 mL 0RF E66.811 - Obesity, class 1
[2025-02-13 08:18] VITALS: BP 132/72; PULSE 80; TEMP 36.3; O2SAT 98; BMI 32.6
== END 2025-02-13 08:58 | disposition home or self-care (01) ==
LOC: HO.HMCH 08:08
PROVIDERS: PCP Physician Assistant; Visit Provider Physician Assistant
DX: I48.0 Paroxysmal atrial fibrillation (principal); M81.0 Age-related osteoporosis without current pathological fracture; E66.811 Obesity, class 1; Z68.32 Body mass index [BMI] 32.0-32.9, adult; E04.2 Nontoxic multinodular goiter; E78.2 Mixed hyperlipidemia; M54.16 Radiculopathy, lumbar region

== ENCOUNTER → 2025-02-13 08:07 | Outpatient (BNVA) | payer MEDICARE, SELFPAY | PROVIDERS: PCP Physician Assistant; Visit Provider Physician Assistant | DX: M81.0 Age-related osteoporosis without current pathological fracture (principal); E04.2 Nontoxic multinodular goiter; I48.0 Paroxysmal atrial fibrillation; E78.2 Mixed hyperlipidemia; M54.16 Radiculopathy, lumbar region; E66.811 Obesity, class 1; Z68.32 Body mass index [BMI] 32.0-32.9, adult; Z71.3 Dietary counseling and surveillance | CPT/HCPCS: 96127; 99212 ==

== ENCOUNTER 2025-02-13 09:13 | Outpatient (AMB) | payer MEDICARE, SELFPAY ==
[2025-02-13 09:30] VITALS: BP 148/72; PULSE 60; O2SAT 96; BMI 32.9
--- NOTE | 2025-02-13 09:30 | A.OFFVIS_ITS ---
Vital Signs 3 02/13/25 09:30 Height 5 ft 2 in Weight 179 lb 14.355 oz BMI 32.9 BP 148/72 H Blood Pressure Location Lt brachial Position Sitting Pulse 60 Pulse Source Pulse Oximeter Pulse Oximetry (%) 96 Oxygen Delivery Method Room Air Intake Visit Reasons: LNP Intake Note: Patient present today for LNP office visit. 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 Required: No Accompanied by: Self / Same As Patient Allergies oxycodone [From Percocet] Allergy (Mild, Verified 02/13/25 09:34) NAUSEA,HIVES,THROWING UP/ codeine [Codeine] Adverse Reaction (Mild, Verified 02/13/25 09:34) Constipation dairy protein Allergy (Severe, Uncoded 02/13/25 09:34) Diarrhea dairy,eggs, wheat,nuts,mold Allergy (Severe, Uncoded 02/13/25 09:34) Diarrhea Medication List - Last Reconciled 02/13/25 by Kriss Stokes MD albuterol sulfate 90 mcg/actuation (ProAir HFA) 2 inhalations inhalation QID PRN calcium carbonate-vitamin D3 600 mg-10 mcg (400 unit) (Calcium with Vitamin D) 1 tab PO DAILY celecoxib 200 mg PO DAILY 90 days cyanocobalamin (vitamin B-12) 1,000 mcg IM .twice a month gabapentin 200 mg PO BEDTIME PRN lansoprazole 30 mg PO DAILY 90 days montelukast 10 mg PO DAILY 90 days syringe with needle (Easy Touch) Use to inject twice a month tirzepatide (weight loss) (Zepbound) 2.5 mg (0.5 mL) subcut QWEEK 4 weeks HPI Comments Details: 69 YO Female with PMHx HTN, HLD Osteoporosis who is seen in F/U for Osteoporosis and NTMNG. She also has osteochdonritis dessicans of the ankles. 1) Osteoporosis: First diagnosed in 2013 based on screening DXA. Treatment history : Prolia : recieved 9 injections , treated for 4 years, on 05/19/2019, 11/18/2019, 05/23/2020, 11/21/2020, 05/22/2021 and 12/26/2021 ,06/2022. 01/04 and 07/06 Reclast : 02/04 DEXA scan done 02/02/2025: At [facility] showed T-score of-4 at the left forearm consistent with severe osteoporosis, with a decrease of 8.9% compared to bone density in December 2022. T-score of -2.4 at the lumbar spine with a decrease of 1% compared to 2022 which means bone density at the spine is stable. Right femoral neck T-score-2.6 and left femoral neck T-score-3.1, consistent with osteoporosis with a decrease of 2.8% in bone density at the right femur and 3.9% in bone density of the left femur. Again these remained stable. Has 0 servings of dietary calcium per day as she is intolerant to casein protein which is in dairy. Takes Calcium supplement 600 mg daily in divided doses. Takes 400 IU of Vitamin D daily which is Stimatix GI brand of calcium vitamin D. She does ride the stationary bike, and walk 9000 steps per day for exercise. Fracture history: Fractures as a child that were traumatic, but never had a fragility fracture. Height loss: Lost 1/2 inch of height since 2013. stable since last visit Has severe GERD. Uses PPI daily. She does use frequent prednisone tapers approximately 4x per year for chronic sinusitis. She uses this Denies ever using anticoagulant or antiepileptic medication. Not received steroids in some time No history of pathologic fracture or ONJ. 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 Menses was always regular. , she did not breastfeed. Had a hysterectomy at the age of 43. She had unilateral oophorectomy, with 1 ovary remaining. Had symptoms of menopause approximately 10 years ago in her early 50's. She was placed on HRT with estrogen patches , but she stopped using these after 1 year. History of Kidney stones: Has no history of kidney stones. No kidney stones in the family. Grandmother with Osteoporosis. No other family history of Osteoporosis or hip fracture. UTD on dental cleanings and sees dentist every 6 months. No planned upcoming dental work or extractions. DXA dated: 12/10/2020 L1-L4: T-1.9, increase of 12.2% since prior B/L Total Hip: T -1.6 RFN T-2.1, increase 6% from prior LFN T-2.0, increase of 2.8% from prior DXA 01/04 Lumbar spine T-score-2.2 with decrease of 3.7% in bone density Total femur T-score -1.4 Right femoral neck T-score-1.9 with increase of 2.4% in bone density Left femoral neck T-score -1.9 with the increase in 4.7% in density Left forearm T-score -3.4, this was a baseline DEXA scan done 02/02/2025: At [facility] showed T-score of-4 at the left forearm consistent with severe osteoporosis, with a decrease of 8.9% compared to bone density in December 2022. T-score of -2.4 at the lumbar spine with a decrease of 1% compared to 2022 which means bone density at the spine is stable. Right femoral neck T-score-2.6 and left femoral neck T-score-3.1, consistent with osteoporosis with a decrease of 2.8% in bone density at the right femur and 3.9% in bone density of the left femur. Again these remained stable. Patient has not had any falls or fractures. 2) NTMNG: Status post right hemithyroidectomy On her initial visit withDr. Ruelas she palpated a thyroid nodule. Thyroid US 2018 revealed 2 subcentimeter R sided thyroid nodules. The R mid pole nodule was hypoechoic with irregular margins. She does mention a family history of thyroid cancer in her niece. FNA biopsy of the R mid 1.0 cm thyroid nodule 02/24/19 with cytology [place] Category IV Suspicious for Follicular Neoplasm. She subsequently underwent a R lobe hemithyroidectomy in with official pathology revealing a benign adenomatoid nodule with background follicular hyperplasia. She had postoperative calcium and albumin levels assessed which were WNL. She remains off any thyroid hormone supplementation. She has no history of head or neck radiation. She has a family history of thyroid cancer in her niece. She did develop an enlarged lymph node in her L neck. She was referred to Heme- Onc for this, but declined and instead saw ENT. She underwent FNA biopsy at an [facility] 09/2020 with inconclusive results per her report. Apparently also saw Hematology/Oncology at [facility] subsequently, Dr. Mckay but I do not see these records. She also underwent FNA biopsy 12/02 of this at [facility] in 2020 which suggested adipose tissue has been biopsied and not a lymph node. Subsequently she was seeing Dr. Ruelas for this. Interval history 07/12/24: thyroid US Called patient on 07/12/2024, and discussed with her that the ultrasound shows bilateral lymph nodes. There is a level 2 lymph node measuring 1.3 cm that is labeled as abnormal on the report, but when I reviewed the images myself, appears normal to me with a visualized hilum. I also let her know that on the left side at level 5B she has a 4.3 cm mass that has been biopsied before in the same area at least twice. This did not yield any malignant cells in the past and only showed fibrosis/adipose tissue. It appears like muscle tissue with fibrosis. At this time we will continue to observe with repeat imaging. No intervention needed. Physical exam General: sitting comfortably in no acute distress HEENT: normocephalic/atraumatic, moist oral mucosa Neck: supple, symmetrical, Cardiac: normal heart sounds Pulm: normal breath sounds B/L, no added breath sounds Abd: not distended, no tenderness Extremities: no edema, no signs of myxedema Neuro: AAO x3, Speech: normal, no facial droop, moving all 4 extremities Laboratory Tests 11/05/19 06/06/20 11/17/20 07:20 06:45 08:00 Creatinine Estimated GFR Calcium Magnesium N-Telopeptide X-linked 27 12 22 25-OH Vitamin D Total PTH Intact 05/17/21 06/30/22 12/30/22 07:30 13:20 06:45 Creatinine Estimated GFR Calcium Magnesium N-Telopeptide X-linked 37 37 49 25-OH Vitamin D Total PTH Intact 01/20/23 07/21/23 07/23/23 10:40 11:21 07:03 Creatinine Estimated GFR Calcium Magnesium N-Telopeptide X-linked 49 25-OH Vitamin D Total 62.6 PTH Intact 64 56 12/28/23 01/20/24 02/15/24 09:45 07:19 08:55 Creatinine 0.73 0.65 Estimated GFR > 60 > 60 Calcium 9.7 10.2 Magnesium 1.8 N-Telopeptide X-linked 25-OH Vitamin D Total PTH Intact 03/28/24 06:45 Creatinine Estimated GFR Calcium Magnesium N-Telopeptide X-linked 17 25-OH Vitamin D Total PTH Intact Laboratory Tests 01/09/25 01/10/25 02/08/25 08:40 07:40 09:38 Sodium 141 141 Potassium 3.9 4.4 Creatinine 0.72 0.61 Estimated GFR > 60 > 60 Calcium 9.4 9.3 Ionized Calcium 5.3 Phosphorus 3.5 Alk Phos Bone Specific 15.1 Albumin 4.1 4.1 N-Telopeptide X-linked 53 TSH 2.15 1.97 Free T4 0.87 PTH Intact 72.9 US THYROID 06/21/24 The purpose of this addendum is to correct a right/left discrepancy in the original report which should read, as follows: CLINICAL INDICATION: Multinodular goiter, right lobectomy 2019. Per search marketing specialist, Patient mentioned lumps felt lower LEFT neck, posterior approximately level 5B. FINDINGS: Targeted ultrasound images were obtained by the search marketing specialist of the area of concern as indicated by the patient in the LEFT NECK at level 5B. There is a 4.3 x 1.5 x 3.9 cm hypoechoic, hypervascular lesion with possible septations in the area of concern indicated by the patient in the LEFT NECK at level 5B. Internal vascularity demonstrated. IMPRESSION: 4.3 cm hypoechoic, hypervascular lesion with possible septations in the area of concern indicated by the patient in the LEFT NECK at level 5B. Correlation with clinical exam recommended to determine further management including possible surgical consultation, biopsy and/or additional imaging with MRI. CLINICAL INFORMATION: Nontoxic multinodular goiter. History of right lobectomy, has history of cervical adenopathy. Please look at all neck levels for lymph nodes. COMPARISON: Thyroid ultrasound 03/31/2023. CT soft tissue neck without and with contrast 01/10/2021. Ultrasound-guided biopsy lymph node 12/11/2020. Ultrasound soft tissue of the neck 09/11/2020. Ultrasound-guided biopsy 02/24/2019. TECHNIQUE: Linear transducer grayscale and color Doppler examination with attention to the region of the thyroid. FINDINGS: SIZE: Measurements of the solitary left thyroid lobe and nodules are given in sagittal, anteroposterior and transverse dimensions respectively. Right Thyroid Lobe: Surgically absent. Left Thyroid Lobe: 3.9 x 1.4 x 1.6 cm, volume 4.6 mL. Previously 4.2 x 1.3 x 1.6 cm, volume 4.6 mL. Parenchyma: The gland echotexture is homogeneous. Thyroid vascularity is normal. Isthmus: 0.3 cm in maximum AP dimension. Previously 0.3 cm. No suspicious thyroid nodule is seen. NODES: Targeted ultrasound images were obtained by the search marketing specialist of the area of concern as indicated by the patient in the lower right neck posteriorly approximately at level 5B demonstrated a hypoechoic, hypervascular lesion with possible septations measuring approximately 4.3 x 1.5 x 3.9 cm of indeterminate etiology. Radiologist was not in attendance. Images were later provided for interpretation. Right neck level 2 node measures 0.9 x 0.6 x 0.6 cm Right neck level 2 node measures 1.2 x 0.6 x 1.4 cm Right neck level 3 node measures 0.9 x 0.4 x 0.9 cm Right neck level 3 node measures 1.5 x 0.4 x 1.1 cm and appears normal. Previous exam of 03/31/2023 demonstrated a right level 3 abnormal appearing node measuring 0.9 cm in transverse dimension. Left neck level 2 node measures 1.3 x 0.5 x 1.3 cm and appears abnormal with poorly visualized hilum. Left neck level 2 node measures 1.9 x 0.5 x 1.2 cm. Previous exam demonstrated a left level 2 node measuring 0.8 cm. Additional findings: Targeted ultrasound images were obtained by the search marketing specialist of the area of concern as indicated by the patient in the lower right neck posteriorly approximately at level 5B demonstrated a hypoechoic, hypervascular lesion with possible septations measuring approximately 4.3 x 1.5 x 3.9 cm . Radiologist was not in attendance. Images were later provided for interpretation. US/US thyroid IMPRESSION: 1. Right thyroid lobe surgically absent. No suspicious left thyroid nodules. 2. A 4.3 x 1.5 x 3.9 cm hypoechoic, hypervascular lesion in the area of concern indicated by the patient in the lower right neck posteriorly at approximately level 5B was identified on the prior exam. Correlation with clinical exam recommended to determine further management including possible surgical consultation, biopsy and/or additional imaging with MRI. 3. Bilateral cervical lymph nodes, some of which appear abnormal. EXAMINATION: US THYROID 12/04 I reviewed the images myself of the ultrasound which do show the 2 lymph nodes, these do not appear abnormal to me, the right-sided 1 is longitudinal in appearance which is reassuring. None of these are greater than 1 cm in measurement. The circular 1 does appear to have faint hilum. CLINICAL INFORMATION: Postprocedural hypothyroidism. COMPARISON: CT soft tissue neck without and with contrast 01/10/2021. Ultrasound-guided thyroid biopsy 12/11/2020. Ultrasound soft tissue of the neck 09/11/2020. Ultrasound-guided thyroid biopsy 02/24/2019. Ultrasound thyroid 12/13/2018. TECHNIQUE: Linear transducer grayscale and color Doppler examination with attention to the region of the thyroid. FINDINGS: SIZE: Measurements of the solitary left thyroid lobe and nodules are given in sagittal, anteroposterior and transverse dimensions respectively. Right Thyroid Lobe: Surgically absent. Left Thyroid Lobe: 4.2 x 1.3 x 1.6 cm, volume 4.6 mL. Previously 3.9 x 1.2 x 1.4 cm, volume 3.4 mL. Parenchyma: The gland echotexture is homogeneous. Thyroid vascularity is increased. Isthmus: 0.3 cm in maximum AP dimension. Previously 0.3 cm. No suspicious thyroid nodule is seen. NODES: Right neck level III node measures 0.9 cm in transverse dimension and appears borderline with no demonstrable fatty hilum or vascularity. Previous exam demonstrated a right level III node measuring 0.9 cm. Left neck level II node measures 0.8 cm with cortical thickening and echogenic hilum. Previous exam of 09/11/2020 demonstrated a left neck level IIa node measuring 0.8 cm. US/US thyroid IMPRESSION: The right thyroid lobe is surgically absent. No suspicious left thyroid nodule is identified. Right neck level III node measures 0.9 cm in transverse dimension and appears borderline with no demonstrable fatty hilum or vascularity. Previous exam demonstrated a right level III node measuring 0.9 cm. Left neck level II node measures 0.8 cm with cortical thickening and echogenic hilum. Previous exam of 09/11/2020 demonstrated a left neck level IIa node measuring 0.8 cm. EXAMINATION: CT SOFT TISSUE NECK WITHOUT AND WITH CONTRAST 2020 CLINICAL INFORMATION: Generalized enlargement of the lymph nodes. COMPARISON: Soft tissue neck ultrasound 09/11/2020. TECHNIQUE: Before and after the intravenous administration of 60 mL of Omnipaque 350 intravenous contrast helical imaging was performed in the axial plane with generation of coronal and sagittal reformatted images. This CT examination was performed using dose optimization techniques as appropriate, variously including the following: *Automated exposure control *Adjustment of mA and/or kV according to patient size (this includes techniques or standardized protocols for targeted exams where dose is matched to indication/reason for exam; i.e. extremities or head) *Use of iterative reconstruction technique DLP: 288 mGy-cm FINDINGS: The right lobe the thyroid gland is surgically absent. No abnormal soft tissue mass or enhancement at the site of surgery. There are no pathologically enlarged cervical lymph nodes. No mediastinal or axillary adenopathy is visualized within the [id number] of this examination. Spaces are symmetric. Parapharyngeal and retromaxillary fat is preserved. [place] [employer] spaces are symmetric. The parotid and submandibular glands are normal. The tongue base and epiglottis are normal. Preepiglottic fat is preserved. Glottic and subglottic airways are widely patent. Lung apices are clear. Scattered atheromatous calcification involves the aortic arch apex. Cervical carotid and vertebral arteries are patent. Internal jugular veins fill symmetrically. There is no acute osseous finding. There is degenerative arthrosis at C5-C6 and slight anterolisthesis of C4 on C5 related to facet degenerative changes at this level. Grossly no evidence of canal compromise. Limited visualization of the posterior fossa reveals no abnormal finding. The skull base is intact. No mastoid middle ear effusion. A. Retention cysts are visualized within the maxillary sinuses. CT/CT soft tissue neck wo/w con IMPRESSION: Chronic postoperative changes of a right thyroid lobectomy. No abnormal soft tissue mass or enhancement of the sinus surgery or elsewhere within the [id number] of this examination. No pathologically enlarged cervical lymph nodes. US SOFT TISSUE OF THE NECK 09/03 CLINICAL INFORMATION: Generalized enlarged lymph nodes. Status post right thyroidectomy. COMPARISON: Ultrasound soft tissue head/neck thyroid dated 12/13/2018. TECHNIQUE: Linear transducer grayscale and color Doppler examination of the solitary left thyroid and surrounding soft tissue. FINDINGS: LEFT NECK: 1. Level 5B lymph node measuring 2.0 x 0.70 x 1.8 cm. Abnormal appearance with peripheral color flow. 2. Level 5B lymph node measuring 1.4 x 0.57 x 1.5 cm. Normal appearance with peripheral flow 3. Level 2A lymph node measuring 1.3 x 0.61 x 0.82 cm. Oval-shaped with central echogenic medulla and no abnormal vascularity. 4. Level 2A lymph node measures 1.5 x 0.45 x 0.91 cm and has normal ultrasound features. 5. Level 7 lymph node measures 1.1 x 0.23 x 0.42 cm. It has normal ultrasound features. RIGHT NECK: 1. Level 2A lymph node measures 1.2 x 0.54 x 1.2 cm. It has normal ultrasound features. 2. Level 3 lymph node measures 1.1 x 0.47 x 0.82 cm. It has normal ultrasound features. 3. Level 3 lymph node measures 0.91 x 0.30 x 0.74 cm. It has normal ultrasound features. 4. Level 1A lymph node measures 0.90 x 0.62 x 0.74 cm. It has normal ultrasound features. US/US soft tiss head and/or neck IMPRESSION: 1. Two abnormal size lymph nodes seen in the right neck. 2. The rest of the right and left neck lymph nodes have normal lymph node features by ultrasound. [facility] Medical History On beta kendal at home Atrial fibrillation Vitamin B 12 deficiency Multinodular thyroid Osteoporosis Vitamin D deficiency Lymphadenopathy of head and neck Neck pain Normal colonoscopy History of mammogram Asthma Hyperlipidemia GERD (gastroesophageal reflux disease) Arrhythmia Surgical History History of surgery History of lumpectomy of both breasts Hx of cholecystectomy History of esophagogastroduodenoscopy (EGD) H/O colonoscopy History of thyroidectomy S/P foot surgery, right History of rotator cuff surgery Carpal tunnel syndrome H/O arthroscopy of right knee History of breast biopsy History of hysterectomy Family History Father CAD (coronary artery disease) CVD (cardiovascular disease) Mother No problems noted. Brother Cancer Sister Liver cancer CVD (cardiovascular disease) Breast cancer Other Mental health disorder Social History Housing: House Alcohol intake: current Alcohol intake frequency: holidays/special occasions only Patient Tobacco Use Status: Former Tobacco user Tobacco use type: Cigarette Cigarettes Per Day: 5 Years Smoked: 35 e-Cigarette/Vaping Use: Never Used Second Hand Smoke Exposure: Yes service: No Current occupational status: retired Cognitive needs: No Hearing needs: No Vision needs: Yes (Glasses) Physical Exam Vital Signs: Last Vital Signs Pulse 60 02/13/25 09:30 BP 148/72 H 02/13/25 09:30 Pulse Ox 96 02/13/25 09:30 Oxygen Delivery Method Room Air 02/13/25 09:30 BMI result Body Mass Index 32.9 Assessment & Plan Assessment & Plan (1) Osteoporosis: Code(s): M81.0 - Age-related osteoporosis without current pathological fracture Category: Medical Qualifiers: Osteoporosis type: age-related Presence of current pathological fracture: without current pathological fracture Qualified Code(s): M81.0 - Age- related osteoporosis without current pathological fracture Plan: Patient with a history of osteoporosis diagnosed in 2013 who has history of GERD, long-term PPI use, many years of steroid use in the past due to chronic sinusitis. She was on Prolia from May 2019 to July 2023 and received 9 injection/4 years of therapy. DEXA scan done 02/02/2025: At [facility] showed T-score of-4 at the left forearm consistent with severe osteoporosis, with a decrease of 8.9% compared to bone density in December 2022. T-score of -2.4 at the lumbar spine with a decrease of 1% compared to 2022 which means bone density at the spine is stable. Right femoral neck T-score-2.6 and left femoral neck T-score-3.1, consistent with osteoporosis with a decrease of 2.8% in bone density at the right femur and 3.9% in bone density of the left femur. Again these remained stable. She has not had any fractures. She is on calcium supplements, I am unsure of the dose, however last time I told her dose take 600 mg twice daily. Vitamin-D level up at 77, from January 2025, last time I had increased her vitamin-D to 1000 units daily. She is out in the sun quite a bit, I have asked her to pause her vitamin-D that she was taking 2000 units daily for 2 months and then restart after the summer or she can take it every other day. There is also 400 units of vitamin-D in her calcium pills. She can continue with that. She is good with activity. Her last urine NTX from January 2025 has gone up to 45 from from March 2024 is 17 at this point it would be a good idea to repeat Reclast given severe osteoporosis in the wrist as well as hip. Plus increased bone resorption markers. Plan: -ordered Reclast infusion to be given this year in summer 2024 -next bone density would be due January 2027 including forearm -labs including urine NTX to be repeated in 1 year prior to follow up in February 2026 -follow up with me in February 2026 -pause vitamin-D 1000 units daily for 2 or so months in restart after the summer, continue the 1 in your calcium pills -calcium 600 mg daily in supplements -encouraged active exercise regimen (2) Multinodular thyroid: Comment: Status post partial thyroidectomy 2019 Code(s): E04.2 - Nontoxic multinodular goiter Category: Medical Plan: Patient with history of right-sided thyroid nodules discovered in 2018, which was subsequently biopsied and came back as suspicious for follicular neoplasm in 2018, who subsequently underwent right hemithyroidectomy with Dr. Sondra Mcpherson at [facility] in 2019 revealing benign pathology. Subsequently she developed abnormal lymphadenopathy in the neck per previous ultrasounds. An abnormal lymph node noted on the left side of the neck was biopsied twice once at outside hospital in 2020 and then again at [facility] in November of 2020. The 1st result was not conclusive and the 2nd 1 showed that adipose tissue has been biopsied with no sample of lymph node in it. She was subsequently following with Hematology/Oncology for this with Dr. Mckay. However has not had any recent follow up. She denies any compressive symptoms. On my exam I do not feel any abnormal lymphadenopathy. 07/12/24: thyroid US Called patient on 07/12/2024, and discussed with her that the ultrasound shows bilateral lymph nodes. There is a level 2 lymph node measuring 1.3 cm that is labeled as abnormal on the report, but when I reviewed the images myself, appears normal to me with a visualized hilum. I also let her know that on the left side at level 5B she has a 4.3 cm mass that has been biopsied before in the same area at least twice. This did not yield any malignant cells in the past and only showed fibrosis/adipose tissue. It appears like muscle tissue with fibrosis. At this time we will continue to observe with repeat imaging. No intervention needed. At this point we will plan to repeat an ultrasound in 2 years from the last 1 in June 2026 Plan: -plan to repeat ultrasound of the neck/thyroid in June 2026 Plan I spent 30 minutes in reviewing the record, seeing the patient and documenting in the medical record. Orders: Orders 2 Albumin Level 1 Year M81.0 - Age-related osteoporosis without current pathological fracture Calcium 1 Year M81.0 - Age-related osteoporosis without current pathological fracture Phosphorus 1 Year M81.0 - Age-related osteoporosis without current pathological fracture Creatinine 1 Year M81.0 - Age-related osteoporosis without current pathological fracture Vitamin D 25-OH Total 1 Year M81.0 - Age-related osteoporosis without current pathological fracture Alkaline Phosphatase Bone 1 Year M81.0 - Age-related osteoporosis without current pathological fracture Collagen Crosslinks NTX 1 Year M81.0 - Age-related osteoporosis without current pathological fracture TSH reflex Free T4 1 Year E04.2 - Nontoxic multinodular goiter Collagen Type I C-Telopeptide 1 Year M81.0 - Age-related osteoporosis without current pathological fracture Calcium, Ionized 1 Year M81.0 - Age-related osteoporosis without current pathological fracture Calcium, Random Urine 1 Year M81.0 - Age-related osteoporosis without current pathological fracture Creatinine Urine 1 Year M81.0 - Age-related osteoporosis without current pathological fracture Referrals 2 Infusion Center Notification M81.0 - Age-related osteoporosis without current pathological fracture Patient Instructions: We have ordered another reclast infusion , someone will contact you to schdeule this. This is usually given as an IV infusion, once a year. Common side effects include fever, chills, flulike symptoms and muscle and joint aches and pains. This may happen up to 20% of the people. Other side effects may include low calcium level, especially if the vitamin D is low. Therefore do continue to take calcium and vitamin D as recommended by your doctor. We recommend that you are well-hydrated when you comes for the Reclast infusion. So please drink 16 ounces of water and do not take any diuretics on the day of the infusion. We also recommended to take 2 Tylenol before leaving home for the infusion. You may continue to take Tylenol every 6 hours as needed for the initial 1-2 days depending on the need. Please let us know should you have any side effects from reclast. We do recommend a regular dental follow-up for oral/dental health. Continue vitamin D and calicum intake Stay uptodate woth dental cleanings Walk 30 mins 5 days a week Follow up in 1 year with repeat labs (fasting blood work and urine test , 2nd urine of the day fasting ) Will plan to repeat an ultrasound of the neck June 2026 Bring calcium vitamin D bottles to every visit Coding Level of Care Code Est Pt Level 4 (59797) Diagnoses Age-related osteoporosis without current pathological fracture M81.0 Osteoporosis type: age-related Presence of current pathological fracture: without current pathological fracture Multinodular thyroid E04.2 Time Spent (min) 30
== END 2025-02-13 10:06 | disposition home or self-care (01) ==
LOC: HO.ENCR 09:14
PROVIDERS: PCP Physician Assistant; Visit Provider Student in an Organized Health Care Education/Training Program
DX: M81.0 Age-related osteoporosis without current pathological fracture (principal); E04.2 Nontoxic multinodular goiter
CPT/HCPCS: 99214

== ENCOUNTER 2025-02-21 19:43 | Outpatient (REF) | payer MEDICARE, SELFPAY ==
--- NOTE | ~2025-02-21 | MR_ITS ---
EXAMINATION: MR LUMBAR SPINE WITHOUT CONTRAST CLINICAL INFORMATION: Radiculopathy, lumbar region COMPARISON: April 10, 2009. TECHNIQUE: MRI of the lumbar spine was obtained using routine sequences without contrast. FINDINGS: Last rib-bearing vertebra labeled T12. Grade 1 anterolisthesis L4-5. Bone marrow STIR signal in the inferior endplate of T11 and the superior endplate of T12. STIR signal abnormality at the L4-5 and L5-S1 facet joints. Multilevel marginal osteophyte formation and disc desiccation more pronounced at T11-12 L4-5 levels. Grade 1 anterolisthesis L2-3 and L3-4 on a degenerative basis. Conus medullaris ends at pedicle of L1 with normal signal. T11-12: Broad-based disc bulging. No compression upon neural elements. T12-L1: No compression upon neural elements. L1-2: No compression upon neural elements. L2-3: Broad-based disc bulging. No compression upon neural elements. L3-4: Broad-based disc bulging. Facet joint and ligamentum flavum hypertrophy. Reduced AP diameter of the thecal sac and neuroforamina. No compression upon neural elements. L4-5: Broad-based disc bulging. Grade 1 anterolisthesis. Hypertrophy of the ligamentum flavum and facet joints with facet joint effusions. Central spinal canal and to a lesser extent bilateral neuroforamina stenosis encroaching the neural elements. L5-S1: Broad-based disc bulging. Facet joint and ligamentum flavum hypertrophy. Prominent epidural fat in a circumferential fashion. Reduced AP diameter of the thecal sac and neuroforamina likely encroaching the exiting nerve roots, left greater than the right side. No prevertebral compartment hematoma, mass or fluid collection. MR/MR lumbar spine wo con IMPRESSION: Grade 1 anterolisthesis on a degenerative basis resulting in central spinal canal and bilateral neuroforamina stenosis encroaching the neural elements. Spondylosis at multiple levels more pronounced at L5-S1 encroaching the exiting nerve roots. Electronically signed by: Dereck Vargas MD 02/22/2025 09:14 AM EDT
--- OUTSIDE RECORDS SUMMARY | 2025-02-21 19:53 | XMS_ITS | Clinical Summary ---
Author Organization [facility] Address [address] [place] [address] Phone Care Team Providers Care Physician Name Role Phone Louis Quijano Primary Care Provider [phone] Encounters Date Type Department Care Team Description 02/02/2025 8:08 AM EDT - 02/02/2025 11:59 PM EDT Hospital Encounter [facility] Bone Density [address] [place] [phone] Age-related osteoporosis without current pathological fracture Discharge Disposition: Home or Self Care 02/02/2025 7:51 AM EDT - 02/02/2025 11:59 PM EDT Hospital Encounter [facility] Bone Density [address] [place] [phone] Age-related osteoporosis without current pathological fracture Discharge Disposition: Home or Self Care 01/12/2025 9:29 AM EDT - 01/12/2025 11:59 PM EDT [facility] [address] [phone] Encounter for screening mammogram for breast cancer Discharge Disposition: Home or Self Care from Last 3 Months Surgical History Surgery Date Site/Laterality Comments STEREOTACTIC CORE BIOPSY Bilateral BREAST CYST ASPIRATION Bilateral BREAST LUMPECTOMY Bilateral HYSTERECTOMY Family History Medical History Relation Name Comments Breast cancer Maternal Grandmother Breast cancer Sister Relation Name Status Comments Maternal Grandmother Sister Social History Tobacco Use Types Packs/Day Years Used Date Smoking Tobacco: Never Assessed Comments No Sex and Gender Information Value Date Recorded Sex Assigned at Female 01/13/2025 4:36 PM EDT Legal Sex Female 7:27 AM EST Gender Identity Female 01/13/2025 4:36 PM EDT Sexual Orientation Choose not to disclose 2024 4:36 PM EDT Obstetrics History Para Term AB IAB SAB Ectopic Multiple Livin g Live Births 1 Last Filed Vital Signs Vital Sign Reading Time Taken Comments Blood Pressure - - Pulse - - Temperature - - Respiratory Rate - - Oxygen Saturation - - Inhaled Oxygen Concentration - - Weight 79.8 kg (176 lb) 01/12/2025 9:59 AM EDT Height 154.9 cm (5' 1 ) 01/12/2025 9:59 AM EDT Body Mass Index 33.25 01/12/2025 9:59 AM EDT Plan of Treatment Health Maintenance Due Date Last Done Comments Zoster Vaccines (1 of 2) 2005 RSV Immunization Adult Patients (1 - Risk 60-74 years 1-dose series) 2015 Pneumococcal Vaccine: 50+ Years (2 of 2 - PCV) 07/14/2022 07/14/2021 Colorectal Cancer Screening: Colonoscopy 08/17/2022 Depression Screening 08/17/2022 Falls Risk Assessment 08/17/2022 Hepatitis C Screening 08/17/2022 Medicare Annual Wellness Visit 08/17/2022 Social Influencers of Health Screening 08/17/2022 COVID-19 Vaccine ( season) 2024 08/27/2021, 12/03/2020, 11/05/2020 Breast Cancer Screening 01/12/2027 01/13/20 25, 01/11/2024, 01/07/2023, Additional history exists DTaP,Tdap,and Td Vaccines (2 - Td or Tdap) 05/04/2031 05/04/2021 Osteoporosis Screening (Bone Density Screening) 02/02/2035 02/02/2025, 02/02/2025, 01/07/2023, Additional history exists Influenza Vaccine Completed 08/19/2024, , 06/13/2022, Additional history exists HIB Vaccines Aged Out [...] EDT Age-related osteoporosis without current pathological fracture BD BONE DENSITY DXA AXIAL SKELETON Routine 02/02/2025 8:38 AM EDT Age-related osteoporosis without current pathological fracture MG MAMMO DIGITAL SCREENING W TYSHAWN BILAT Routine 01/12/2025 10:07 AM EDT Encounter for screening mammogram for breast cancer from Last 3 Months Results * BD Bone Density DXA Appendicular Skeleton (02/02/2025 8:39 AM EDT) Anatomical Region Laterality Modality Body Bone Densitometr y 02/03/2025 7:47 AM EDT Impressions 02/03/2025 7:49 AM EDT Impression: Osteoporosis. ??There has been a decrease of 8.9% in bone mineral density since the prior examination of 01/07/2023. Code 29017 -------- FINAL REPORT -------- Dictated By: Bam Sanchez Dictated Date: 02/03/2025 07:47 ET Assigned Physician: Bam Sanchez Reviewed and Electronically Signed By: Bam Sanchez Signed Date: 02/03/2025 07:49 ET Workstation ID: [id number] Transcribed By: Self Edit Transcribed Date: 02/03/2025 [...] since the prior examination of 01/07/2023. Code 84078 -------- FINAL REPORT -------- Dictated By: Bam Sanchez Dictated Date: 02/03/2025 07:47 ET Assigned Physician: Bam Sanchez Reviewed and Electronically Signed By: Bam Sanchez Signed Date: 02/03/2025 07:49 ET Workstation ID: [id number] Transcribed By: Self Edit Transcribed Date: 02/03/2025 07:47 ET us Kriss Stokes MD IM DXA PROCEDURES Final Result * BD Bone Density DXA Axial Skeleton (02/02/2025 8:38 AM EDT) Anatomical Region Laterality Modality Wrist, Hip, L-spine Bone Densito metry 02/03/2025 7:50 AM EDT Impressions 02/03/2025 7:51 AM EDT 1. Osteoporosis. ??There has been a decrease of 1.0% in bone mineral density in the lumbar spine since the prior examination of 01/07/2023. ??There has been a decrease of 2.8% in bone mineral density in the right femur and a decrease of 3.9% in bone mineral density in the left femur. 2. FRAX analysis yields a 10-year probability of major osteoporotic fracture of 14.1% and a 10-year probability of hip fracture of 3.6%. Code 72584 -------- FINAL REPORT -------- Dictated By: Bam Sanchez Dictated Date: 02/03/2025 07:50 ET Assigned Physician: Bam Sanchez Reviewed and Electronically Signed By: Bam Sanchez Signed Date: 02/03/2025 07:51 ET Workstation ID: [id number] Transcribed By: Self Edit Transcribed Date: 02/03/2025 07:50 ET Narrative 02/03/2025 7:51 AM EDT HISTORY: ??The patient is a 69-year-old postmenopausal female with clinical concern for metabolic bone disease. FINDINGS: ??Dual energy x-ray absorptiometry of the lumbar spine and femurs is performed. The mean bone mineral density at L1-3 is 0.887 gm/cm2 which is 76% of that of young normals and 85% of that of age matched controls. This yields a T-score of -2.4 and a Z-score of -1.3 which is diagnostic of osteopenia. The mean bone mineral density of the femurs bilaterally is 0.806 gm/cm2 which is 80% of that of young normals and 92% of that of age matched controls. ??This yields a T-score of -1.6 and a Z-score of -0.6 which is diagnostic of osteopenia. ??However, the T-score of the right femoral neck is -2.6 and that of the left femoral neck is -3.1 which is diagnostic of osteoporosis. Procedure Note Bam Sanchez MD - 02/03/2025 HISTORY: The patient is a 69-year-old postmenopausal female with clinicalconcern for metabolic bone disease. FINDINGS: Dual energy x-ray absorptiometry of the lumbar spine and femursis performed. The mean bone mineral density at L1-3 is 0.887 gm/cm2 whichis 76% of that of young normals and 85% of that of age matched controls.This yields a T-score of -2.4 and a Z-score of -1.3 which is diagnostic ofosteopenia. The mean bone mineral density of the femurs bilaterally is 0.806 gm/wj1eeqys is 80% of that of young normals and 92% of that of age matchedcontrols. This yields a T-score of -1.6 and a Z-score of -0.6 which isdiagnostic of osteopenia. However, the T-score of the right femoral neckis -2.6 and that of the left femoral neck is - 3.1 which is diagnostic ofosteoporosis. IMPRESSION: 1. Osteoporosis. There has been a decrease of 1.0% in bone mineraldensity in the lumbar spine since the prior examination of 01/07/2023.There has been a decrease of 2.8% in bone mineral density in the rightfemur and a decrease of 3.9% in bone mineral density in the left femur. 2. FRAX analysis yields a 10-year probability of major osteoporoticfracture of 14.1% and a 10-year probability of hip fracture of 3.6%. Code 26198 -------- FINAL REPORT -------- Dictated By: Bam Sanchez Dictated Date: 02/03/2025 07:50 ET Assigned Physician: Bam Sanchez Reviewed and Electronically Signed By: Bam Sanchez Signed Date: 02/03/2025 07:51 ET Workstation ID: [id number] Transcribed By: Self Edit Transcribed Date: 02/03/2025 07:50 ET us Javier Garner MD IMG DXA PROCEDURES Final Resu lt * MG Mammo Digital Screening w Tyshawn bilat (01/12/2025 10:07 AM EDT) Anatomical Region Laterality Modality Breast Bilateral Mammography 01/12/2025 3:21 PM EDT Impressions 01/12/2025 3:26 PM EDT No evidence of breast malignancy. BI-RADS CATEGORY: 1 - NEGATIVE RECOMMENDATION: Screening bilateral mammogram is recommended in 1 year. Mammo Location: [facility], [address] [place] [address], [id number], . -------- FINAL REPORT -------- Dictated By: Demetra Meadows Dictated Date: 01/12/2025 15:21 ET Assigned Physician: Demetra Meadows Reviewed and Electronically Signed By: Demetra Meadows Signed Date: 01/12/2025 15:26 ET Workstation ID: [id number] Transcribed By: Self Edit Transcribed Date: 01/12/2025 15:21 ET Narrative 01/12/2025 3:26 PM EDT CLINICAL: 69 years old, Female, routine annual exam. COMPARISON: 01/11/2024, 01/06 2023, 2021, 09/27/2020, 03/27/2020 and 09/10/2019 ?? TECHNIQUE: Bilateral MLO and CC views were obtained digitally with 3-D mammogram (digital breast tomosynthesis). Computer-aided detection was utilized in evaluation of this exam (CAD). FINDINGS: There is no evidence of suspicious mass or architectural distortion. ??No worrisome calcifications are evident. ??There has been no significant change from prior exam(s). ? 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 BREAST DENSITY: B - There are scattered areas of fibroglandular density. Procedure Note Demetra Meadows MD - 01/12/2025 CLINICAL: 69 years old, Female, routine annual exam. COMPARISON: 01/11/2024, 01/06 2023, 2021, 09/27/2020, 03/27/2020 and09/10/2019 TECHNIQUE: Bilateral MLO and CC views were obtained digitally with 3-Dmammogram (digital breast tomosynthesis). Computer-aided detection wasutilized in evaluation of this exam (CAD). FINDINGS: There is no evidence of suspicious mass or architectural distortion. Noworrisome calcifications are evident. There has been no significantchange from prior exam(s). traffic monitor specialist in the left medialbreast. BREAST DENSITY: B - There are scattered areas of fibroglandular density. IMPRESSION: No evidence of breast malignancy. BI-RADS CATEGORY: 1 - NEGATIVE RECOMMENDATION: Screening bilateral mammogram is recommended in 1 year. Mammo Location: [facility], [address] [place] [address], [id number], . -------- FINAL REPORT -------- Dictated By: Demetra Meadows Dictated Date: 01/12/2025 15:21 ET Assigned Physician: Demetra Meadows Reviewed and Electronically Signed By: Demetra Meadows Signed Date: 01/12/2025 15:26 ET Workstation ID: [id number] Transcribed By: Self Edit Transcribed Date: 01/12/2025 15:21 ET us Self Referral Sppl IMG BI PROCEDURES Final Resul t from Last 3 Months Insurance [employer] MED[employer]ARE Care Teams Physician Relationship Specialty Start Date End Date Louis Quijano PA PCP - General Physician Tabular Typist 01/12/25
== END 2025-02-21 19:44 | disposition home or self-care (01) ==
LOC: HO.MRI 19:43
PROVIDERS: PCP Physician Assistant; Visit Provider Physician Assistant
DX: M54.16 Radiculopathy, lumbar region (principal)
CPT/HCPCS: 72148

== ENCOUNTER → 2025-02-21 19:44 | Outpatient (BNV) | payer MEDICARE, SELFPAY | PROVIDERS: PCP Physician Assistant; Visit Provider Radiology Diagnostic Radiology | DX: M47.817 Spondylosis without myelopathy or radiculopathy, lumbosacral region (principal); M99.63 Osseous and subluxation stenosis of intervertebral foramina of lumbar region | CPT/HCPCS: 72148 ==

== ENCOUNTER 2025-02-23 07:42 | Outpatient (REF) | payer MEDICARE, SELFPAY ==
--- OUTSIDE RECORDS SUMMARY | 2025-02-23 07:44 | XMS_ITS | Clinical Summary ---
Author Organization [facility] Address [address] [place] [address] Phone Care Team Providers Care Research Instrumentation Technician Name Role Phone Louis Quijano Primary Care Provider Encounters Date Type Department Care Team Description 02/02/2025 8:08 AM EDT - 02/02/2025 11:59 PM EDT Hospital Encounter [facility] Bone Density [address] [place] [phone] Age-related osteoporosis without current pathological fracture Discharge Disposition: Home or Self Care 02/02/2025 7:51 AM EDT - 02/02/2025 11:59 PM EDT Hospital Encounter [facility] Bone Density [address] [place] [phone] Age-related osteoporosis without current pathological fracture Discharge Disposition: Home or Self Care 01/12/2025 9:29 AM EDT - 01/12/2025 11:59 PM EDT [facility] [address] [phone] Encounter for screening mammogram for breast cancer [...] since the prior examination of 01/07/2023. Code 03952 -------- FINAL REPORT -------- Dictated By: Bam Sanchez Dictated Date: 02/03/2025 07:47 ET Assigned Physician: Bam Sanchez Reviewed and Electronically Signed By: Bam Sanchez Signed Date: 02/03/2025 07:49 ET Workstation ID: [id number] Transcribed By: Self Edit Transcribed Date: 02/03/2025 [...] since the prior examination of 01/07/2023. Code 27500 -------- FINAL REPORT -------- Dictated By: Bam Sanchez Dictated Date: 02/03/2025 07:47 ET Assigned Physician: Bam Sanchez Reviewed and Electronically Signed By: Bam Sanchez Signed Date: 02/03/2025 07:49 ET Workstation ID: [id number] Transcribed By: Self Edit Transcribed Date: 02/03/2025 [...] probability of hip fracture of 3.6%. Code 04544 -------- FINAL REPORT -------- Dictated By: Bam Sanchez Dictated Date: 02/03/2025 07:50 ET Assigned Physician: Bam Sanchez Reviewed and Electronically Signed By: Bam Sanchez Signed Date: 02/03/2025 07:51 ET Workstation ID: [id number] Transcribed By: Self Edit Transcribed Date: 02/03/2025 [...] density of the femurs bilaterally is 0.806 gm/wn8rfljb is 80% of that of young normals [...] probability of hip fracture of 3.6%. Code 81524 -------- FINAL REPORT -------- Dictated By: Bam Sanchez Dictated Date: 02/03/2025 07:50 ET Assigned Physician: Bam Sanchez Reviewed and Electronically Signed By: Bam Sanchez Signed Date: 02/03/2025 07:51 ET Workstation ID: [id number] Transcribed By: Self Edit Transcribed Date: 02/03/2025 [...] year. Mammo Location: [facility], [address] [place] [address], [id number], . -------- FINAL REPORT -------- Dictated By: Demetra Meadows Dictated Date: 01/12/2025 15:21 ET Assigned Physician: Demetra Meadows Reviewed and Electronically Signed By: Demetra Meadows Signed Date: 01/12/2025 15:26 ET Workstation ID: [id number] Transcribed By: Self Edit Transcribed Date: 01/12/2025 [...] no significant change from prior exam(s). ? 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 BREAST DENSITY: [...] has been no significantchange from prior exam(s). airframe technician in the left medialbreast. BREAST DENSITY: B - There are scattered areas of fibroglandular density. IMPRESSION: No evidence of breast malignancy. BI-RADS CATEGORY: 1 - NEGATIVE RECOMMENDATION: Screening bilateral mammogram is recommended in 1 year. Mammo Location: [facility], [address] [place] [address], [id number], . -------- FINAL REPORT -------- Dictated By: Demetra Meadows Dictated Date: 01/12/2025 15:21 ET Assigned Physician: Demetra Meadows Reviewed and Electronically Signed By: Demetra Meadows Signed Date: 01/12/2025 15:26 ET Workstation ID: [id number] Transcribed By: Self Edit Transcribed Date: 01/12/2025 15:21 ET us Self Referral Sppl IMG BI PROCEDURES Final Resul t from Last 3 Months Insurance [employer] MED[employer] Care Teams Research Instrumentation Technician Relationship Specialty Start Date End Date Louis Quijano PA PCP - General Physician Direct Support Professional Caregiver 01/12/25
[2025-02-23 08:38] LABS: Anion Gap 13 (12-20); Blood Urea Nitrogen 24 mg/dL (9-16); Calcium 9.6 mg/dL (8.4-10.2); Carbon Dioxide 30 mmol/L (22-29); Chloride 101 mmol/L (96-108); Estimated Glomerular Filt Rate > 60; Glucose Random 93 mg/dL (60-115); Potassium 4.1 mmol/L (3.3-5.1); Sodium 140 mmol/L (135-145)
== END 2025-02-23 07:43 | disposition home or self-care (01) ==
LOC: HO.LAB 07:42
PROVIDERS: PCP Physician Assistant; Visit Provider Student in an Organized Health Care Education/Training Program
DX: M81.0 Age-related osteoporosis without current pathological fracture (principal)
CPT/HCPCS: 36415; 80048

== ENCOUNTER 2025-02-23 08:30 | Outpatient (RCR) | payer MEDICARE, SELFPAY ==
--- OUTSIDE RECORDS SUMMARY | 2024-01-26 07:32 | XMS_ITS | Continuity of Care Document ---
Author Organization [facility] Address [address] [address]- Care Team Providers Care Supervisor Print Line Name Role Phone Nataliia Hinojosa MD Primary Care Physician Encounter [facility] R [id number] Date(s): 03/20/22 - 03/27/22 [facility] [address] [address]- Attending Physician: Nathaly Sutherland Admitting Physician: Nathaly Sutherland Referring Physician: Nathaly Sutherland Allergies, Adverse Reactions, Alerts Substance Reaction Severity Status codeine N/V Active Percocet itch Active Percodan itching Active Vicodin C/O - vomiting Active Mold short of breath,sinus issues Active Nuts per testing Active Wheat psoriasis Active Other Food Allergy dairy diarrhea Active Egg Allergy abd pain Active Immunizations Given and Recorded Vaccine Date Status Refusal Reason SARS-CoV-2 (COVID-19) mRNA-1273 vaccine 12/03/20 G iven SARS-CoV-2 (COVID-19) mRNA-1273 vaccine 11/05/20 G iven Medications Acetaminophen = 1,000 mg, By Mouth, Daily, 0 Refills, Maintenance, 04/22/19 10:46:54 EDT Start Date: 04/22/19 Status: Ordered cyanocobalamin 1000 mcg/ml injectable solution See Instructions, 1 mL Intramuscular twice a month, 0 Refills, Maintenance, 08/25/17 9:38:22, Solution Start Date: 08/25/17 Status: Ordered Eylea See Instructions, every 8 weeks,left eye, part of a study, 0 Refills, Maintenance, 04/22/19 10:44:07 EDT Start Date: 04/22/19 Status: Ordered Eylea 40 mg/mL intraocular solution = 2 mg, 0 Refills, Maintenance, 06/27/21 3:35:00 EDT, Partial fill upon patient request if the prescription is for a schedule II opioid drug. Start Date: 06/27/21 Status: Ordered Flax Seed Oil 0 Refills, Maintenance, 08/27/20 13:45:00 EST, Partial fill upon patient request if the prescription is for a schedule II opioid drug. Start Date: 08/27/20 Status: Ordered Flonase 50 mcg/inh nasal spray 1 sprays, Nares, Both, Daily in AM, 0 Refills, Maintenance, 04/22/19 10:45:51 EDT, [place] Start Date: 04/22/19 Status: Ordered lansoprazole 30 mg oral enteric coated capsule 1 capsule = 30 mg, By Mouth, Daily, # 90 capsule, 0 Refills, Maintenance, EC Capsule Start Date: 04/28/13 Status: Ordered PreserVision AREDS 2 oral capsule 1 capsule, By Mouth, Daily, 0 Refills, Maintenance, 08/25/17 9:35:32 Start Date: 08/25/17 Status: Ordered ProAir HFA 90 mcg/inh inhalation aerosol with adapter 2, puffs, Inhalation, Every 4 hours, PRN, # 8.5 Gm, Refills 0, Maintenance, 08/25/17 9:36:49, Aerosol Start Date: 08/25/17 Status: Ordered Prolia = 60 mg, Subcutaneous Infusion, Every 6 months, 0 Refills, Maintenance, 06/27/21 3:33:00 EDT, Partial fill upon patient request if the prescription is for a schedule II opioid drug. Start Date: 06/27/21 Status: Ordered Pt.'s Own Meds probiotic 1 tab, By Mouth, Daily, Maintenance, 04/22/19 10:46:04 EDT Start Date: 04/22/19 Status: Ordered Restasis 0.05% ophthalmic emulsion 1 drops, Eyes, Both, Every 12 hours, 0 Refills, Maintenance, 08/25/17 9:35:06 Start Date: 08/25/17 Status: Ordered Toprol XL 25 mg oral tablet, extended release 12.5 mg, 0.5, tablet, By Mouth, Daily, # 90 tablet, Refills 3, Tot. Refills 3, Maintenance, 11/26/20 7:57:00 EDT, Route to Pharmacy Electronically, [facility], 158, cm, 08/27/20 13:34:00 EST, Height, 78, kg, 07/18/20 9:20:00 ESTDr... Start Date: 11/26/20 Status: Ordered Vitamin D3 oral tablet = 2,000 units, By Mouth, Daily, 0 Refills, Maintenance, 04/22/19 10:37:59 EDT Start Date: 04/22/19 Status: Ordered Problem List Condition Effective Dates Status Health Status Inform ant Obese class I(Confirmed) Active Social History Social History Type Response Smoking Status Former smoker, quit more than 30 days ago entered on: 04/14/19 Sex Female
--- OUTSIDE RECORDS SUMMARY | 2024-01-26 07:32 | XMS_ITS | Continuity of Care Document ---
Author Organization [facility] Address [address] [place] [address]- Care Team Providers Care Green Building Materials Distributor Name Role Phone Nataliia Hinojosa MD Primary Care Physician Encounter [facility] [place] Date(s): 02/23/23 - 03/25/23 [facility] [address] [place] [address]- Attending Physician: AdmLuzmaria mckeon Admitting Physician: Admtr, Ar8 Referring Physician: Admtr, Ar8 Allergies, Adverse Reactions, Alerts Substance Reaction Severity Status codeine N/V Active Percocet itch Active Egg Allergy abd pain Active Percodan itching Active Vicodin C/O - vomiting Active Mold short of breath,sinus issues Active Nuts per testing Active Wheat psoriasis Active Other Food Allergy dairy diarrhea Active Immunizations Given and Recorded Vaccine Date Status Refusal Reason SARS-CoV-2 (COVID-19) mRNA-1273 vaccine 12/03/20 G iven SARS-CoV-2 (COVID-19) mRNA-1273 vaccine 11/05/20 G iven Medications Acetaminophen = 1,000 mg, By Mouth, Daily, PRN Pain , Mild, 0 Refills, Maintenance, 04/22/19 10:46:54 EDT Start Date: 04/22/19 Status: Ordered Calcium 500+D 1 tablet, 2 times a day, 0 Refills, Maintenance, 09/29/17 14:43:21 Start Date: 09/29/17 Status: Ordered CeleBREX 200 mg oral capsule 1 capsule = 200 mg, By Mouth, 2 times a day, 0 Refills, Maintenance, 02/22/20 10:03:00 EDT, Capsule Start Date: 02/22/20 Status: Ordered cyanocobalamin 1000 mcg/ml injectable solution [...] opioid drug. Start Date: 08/27/20 Status: Ordered flecainide 50 mg oral tablet 50 mg, 1, tablet, By Mouth, Every 12 hours, # 180 tablet, Refills 3, Tot. Refills 3, Maintenance, 10/10/20 9:43:00 EST, Route to Pharmacy Electronically, [facility], 158, cm, 08/27/20 13:34:00 EST, Height, 78, kg, 07/18/20 9:20:00 E... Start Date: 10/10/20 Status: Ordered Flonase 50 mcg/inh nasal spray 1 sprays, Nares, Both, Daily in AM, 0 Refills, Maintenance, 04/22/19 10:45:51 EDT, [place] Start Date: 04/22/19 Status: Ordered lansoprazole 30 mg oral enteric coated capsule 1 capsule = 30 mg, By Mouth, Daily, # 90 capsule, 0 Refills, Maintenance, EC Capsule Start Date: 04/28/13 Status: Ordered ProAir HFA 90 mcg/inh inhalation [...] 10:46:04 EDT Start Date: 04/22/19 Status: Ordered Singulair 10 mg oral tablet 10 mg, 1, tablet, By Mouth, Daily, Refills 0, Maintenance, 02/22/20 10:03:00 EDT Start Date: 02/22/20 Status: Ordered Toprol XL 25 mg oral tablet, extended release 12.5 mg, 0.5, tablet, By Mouth, Daily, # 90 tablet, Refills 3, Tot. Refills 3, Maintenance, 11/26/20 7:57:00 EDT, Route to Pharmacy Electronically, [facility], 158, cm, 08/27/20 13:34:00 EST, Height, 78, kg, 07/18/20 9:20:00 ESTDr... Start Date: 11/26/20 Status: Ordered Problem List Condition Confirmation Course Effective Dates Status Health St atus Informant Arthritis Confirmed Active Asthma Confirmed Active Atrial fibrillation Confirmed Active GERD (gastroesophageal reflux disease) Confirmed Active B12 deficiency anemia Confirmed Active Obese class I Confirmed Active Social History Social History Type Response Smoking Status Never (less than 100 in lifetime) entered on: 02/23/23 Sex Implantable Device List Procedure Provider Procedure Date Device Type Site Lengthening Gastrocnemius Luca Acosta MD 06/02/22 Un known Foot Right Device Identifier Serial Number Lot or Batch Number Manufacturing Date Expiration Date Distinct Identification Code MRI Safety Implantable Status Assigning Authority Unknown Unknown [id number] Unknown 08/05/23 Unknown Unknown Active Un known Procedure Provider Procedure Date Device Type Site Lengthening Gastrocnemius Luca Acosta MD 06/02/22 Un known Foot Right Device Identifier Serial Number Lot or Batch Number Manufacturing Date Expiration Date Distinct Identification Code MRI Safety Implantable Status Assigning Authority Unknown [id number] -1 Unknown 10/11/23 Unknown Unknown Active Unknown Patient Care team information Care Team Personnel Name: Tracy Martinez RN Position: [facility] RN Member Role: Primary Care Nurse Name: Nataliia Hinojosa MD Position: [facility] Physician - Primary Care Member Role: PCP Address: Address: [facility] [place], [place] [address] Name: Maria Guadalupe Castellon RN Position: [facility] RN Supv Member Role: Primary Care Nurse Care Team Related Persons Name: TY NORTH Address: [address] [place] [address] Name: VANESSA PATEL Address: [address] [place] [address]
--- OUTSIDE RECORDS SUMMARY | 2024-01-26 07:32 | XMS_ITS | Continuity of Care Document ---
Author Organization [facility] Address [address] [address]- Care Team Providers Care Communication Equipment Mechanic Name Role Phone Nataliia Hinojosa MD Primary Care Physician [place] [facility] [place] 06/27[place]22 - 07/27/22 [facility] [address] [address]- Attending Physician: Admtr, Luzmaria Admitting Physician: AdmtrLuzmaria Referring Physician: Admtr, Ar8 Allergies, Adverse Reactions, Alerts Substance Reaction Severity Status codeine N/V Active Percocet itch Active Nuts per testing Active Egg Allergy abd pain Active Percodan itching Active Vicodin C/O - vomiting Active Mold short of breath,sinus issues Active Wheat psoriasis Active Other Food Allergy [...] AM, 0 Refills, Maintenance, 04/22/19 10:45:51 EDT, [place] Start Date: 04/22/19 Status: Ordered lansoprazole 30 [...] 0, Maintenance, 08/25/17 9:36:49, Aerosol Start Date: 12/12/17 Status: Ordered Prolia = 60 mg, Subcutaneous Infusion, Every 6 months, 0 Refills, Maintenance, 06/27/21 3:33:00 EDT, Partial fill upon patient request if the prescription is for a schedule II opioid drug. Start Date: 06/27/21 Status: Ordered Pt.'s Own Meds probiotic 1 tab, By Mouth, Daily, Maintenance, 04/22/19 10:46:04 EDT Start Date: 04/22/19 Status: Ordered Qvar 40 mcg/inh inhalation aerosol Inhalation, 2 times a day, Refills 0, Maintenance, 02/09/19 10:33:34 EDT Start Date: 02/09/19 Status: Ordered Singulair 10 mg oral tablet [...] Former smoker, quit more than 30 days ago; Other: Quit in 2008; entered on: 05/21/22 Sex Implantable Device List Procedure Provider Procedure Date Device Type Site Lengthening Gastrocnemius Luca Acosta MD 06/02/22 Un known Foot Right Device Identifier Serial Number Lot or Batch Number Manufacturing Date Expiration Date Distinct Identification Code MRI Safety Implantable Status Assigning Authority Unknown Unknown [id number] Unknown 08/05/23 Unknown Unknown Active Un known Procedure Provider Procedure Date Device Type Site Lengthening Luca Pedro MD 06/02/22 Un known Foot Right Device Identifier Serial Number Lot or Batch Number Manufacturing Date Expiration Date Distinct Identification Code MRI Safety Implantable Status Assigning Authority Unknown [id number] Unknown 10/11/23 Unknown Unknown Active Unknown Patient Care team information Care Team Personnel Name: Tracy Martinez RN Position: [facility] RN Member Role: Primary Care Nurse Name: Nataliia Hinojosa MD Position: [facility] Physician (General Medicine) Member Role: PCP Address: Address: [address] [place], [place] [address] Name: Marai Guadalupe Castellon RN Position: [facility] RN Supv Member Role: Primary Care Nurse Care Team Related Persons Name: TY NORTH Address: [address] [place] [address] Name: VANESSA PATEL Address: home [address] [place] [address]
--- OUTSIDE RECORDS SUMMARY | 2024-01-26 07:32 | XMS_ITS | Continuity of Care Document ---
Author Organization [facility] Address [address] [address]- Care Team Providers Care Towel Inspector Name Role Phone Nataliia Hinojosa MD Primary Care Physician [phone] Encounter [facility] [place] [facility] R [id number] Date(s): 11/11/22 - 12/11/22 [facility] [address] [address]- [place] Allergies, Adverse Reactions, Alerts Substance Reaction Severity [...] AM, 0 Refills, Maintenance, 04/22/19 10:45:51 EDT, [place] Start Date: 04/22/19 Status: Ordered lansoprazole 30 [...] Safety Implantable Status Assigning Authority Unknown Unknown [id number] Unknown 08/05/23 Unknown Unknown Active Un known Procedure Provider Procedure Date Device Type Site Lengthening Gastrocnemius Luca Acosta MD 06/02/22 Un known Foot Right Device Identifier Serial Number Lot or Batch Number Manufacturing Date Expiration Date Distinct Identification Code MRI Safety Implantable Status Assigning Authority Unknown [id number] Unknown 10/11/23 Unknown Unknown Active Unknown Patient Care team information Care Team Personnel Name: Tracy Martinez RN Position: [facility] RN Member Role: Primary Care Nurse Name: Nataliia Hinojosa MD Position: [facility] Physician (General Medicine) Member Role: PCP Address: Address: [facility] [place] [address]- [place] Name: Maria Guadalupe Castellon RN Position: [facility] RN Supv Member Role: Primary Care Nurse Care Team Related Persons Name: TY NORTH Address: home [address] [place] [address] [place] [address] Name: JORGE VANESSA Address: home [address] [place] [address]
--- OUTSIDE RECORDS SUMMARY | 2024-01-26 07:32 | XMS_ITS | Continuity of Care Document ---
Author Organization [facility] Address [address] [address]- Care Team Providers Care Robotic Welder Name Role Phone Louis Shirley Primary Care Physician [place] [facility] [place] 11/12/23 - 11/19/23 [facility] [address] [address]- Attending Physician: Nathaly Sutherland Admitting Physician: Nathaly Sutherland Referring Physician: Nathaly Sutherland Allergies, Adverse Reactions, Alerts Substance Reaction Severity Status codeine N/V Active Percocet itch Active Percodan itching Active Vicodin C/O - vomiting Active Wheat psoriasis Active Egg Allergy abd pain Active Mold short of breath,sinus issues Active Nuts per testing Active Other Food Allergy dairy diarrhea Active Immunizations Given and Recorded Vaccine Date Status Refusal Reason influenza virus vaccine, inactivated 06/24/22 Jairon rded influenza virus vaccine, inactivated 08/20/21 Jairon rded influenza virus vaccine, inactivated 06/20/19 Jairon rded influenza virus vaccine, inactivated 07/14/16 Jairon rded SARS-CoV-2 (COVID-19) mRNA-1273 vaccine 08/27/21 R ecorded SARS-CoV-2 (COVID-19) mRNA-1273 vaccine 12/03/20 G iven SARS-CoV-2 (COVID-19) mRNA-1273 vaccine 11/05/20 G iven pneumococcal 23-valent vaccine 07/14/21 Recorded tetanus-diphtheria toxoids (Td) 05/04/21 Recorded Medications Eliquis 5 mg oral tablet 1 tablet = 5 mg, By Mouth, 2 times a day, # 60 tablet, 5 Refills, Maintenance, 08/18/23 13:57:00 EST, Tablet, [id number], Partial fill upon patient request if the prescription is fora schedule II opioid drug., 157, cm, 08/18/23 7:07:... Start Date: 08/18/23 Status: Ordered Eylea 40 mg/mL intraocular solution = 2 mg, 0 Refills, Maintenance, 06/27/21 3:35:00 EDT, Partial fill upon patient request if the prescription is for a schedule II opioid drug. Start Date: 06/27/21 Status: Ordered flecainide 50 mg oral tablet 50 mg, 1, tablet, By Mouth, Every 12 hours, # 180 tablet, Refills 3, Tot. Refills 3, Maintenance, 06/01/23 16:29:00 EDT, Route to Pharmacy Electronically, [facility], 155, cm, 02/23/23 14:23:00 EDT, Height, 79.9, kg, 02/23/23 14:23:... Start Date: 06/01/23 Status: Ordered Flonase 50 mcg/inh nasal spray 1 sprays, Nares, Both, Daily in AM, 0 Refills, Maintenance, 04/22/19 10:45:51 EDT, [place] Start Date: 04/22/19 Status: Ordered lansoprazole 30 [...] opioid drug. Start Date: 06/27/21 Status: Ordered Singulair 10 mg oral tablet 10 mg, 1, tablet, By Mouth, Daily, Refills 0, Maintenance, 02/22/20 10:03:00 EDT Start Date: 02/22/20 Status: Ordered Toprol XL 25 mg oral tablet, extended release 12.5 mg, 0.5, tablet, By Mouth, Daily, # 45 tablet, Refills 3, Tot. Refills 3, Maintenance, 06/01/23 16:29:00 EDT, Route to Pharmacy Electronically, [facility], 155, cm, 02/23/23 14:23:00 EDT, Height, 79.9, kg, 02/23/23 14:23:00 EDT... Start Date: 06/01/23 Status: Ordered Problem List Condition Confirmation Course Effective Dates Status Health St atus Informant Arthritis Confirmed Active Asthma Confirmed Active Atrial fibrillation Confirmed Active GERD (gastroesophageal reflux disease) Confirmed Active B12 deficiency anemia Confirmed Active Obese class I Confirmed Active Social History Social History Type Response Smoking Status Former smoker, quit more than 30 days ago; Other: quit 15 years ago; entered on: 07/09/23 Sex Implantable Device List Procedure Provider Procedure Date Device Type Site Lengthening Gastrocnemius Luca Acosta MD 06/02/22 Un known Foot Right Device Identifier Serial Number Lot or Batch Number Manufacturing Date Expiration Date Distinct Identification Code MRI Safety Implantable Status Assigning Authority Unknown Unknown [id number] Unknown 08/05/23 Unknown Unknown Active Un known Procedure Provider Procedure Date Device Type Site Lengthening Gastrocnemius Luca Acosta MD 06/02/22 Un known Foot Right Device Identifier Serial Number Lot or Batch Number Manufacturing Date Expiration Date Distinct Identification Code MRI Safety Implantable Status Assigning Authority Unknown [id number] -1 Unknown 10/11/23 Unknown Unknown Active Unknown Patient Care team information Care Team Personnel Name: Louis Shirley Position: Reference Physician Member Role: PCP Address: Address: [address] [place] [address]- Care Team Related Persons Name: TY NORTH Address: home [address] [place] [address] Name: VANESSA PATEL Address: home [address] [place] [address]
--- OUTSIDE RECORDS SUMMARY | 2024-01-26 07:32 | XMS_ITS | Continuity of Care Document ---
Author Organization [facility] Address [address] [address]- Care Team Providers Care Machinist 2Nd Shift Name Role Phone Nataliia Hinojosa MD Primary Care Physician [id number] Date(s): 03/26/22 - 04/02/22 [facility] [address] [address]- Attending Physician: Weston Byrd MD Admitting Physician: Weston Byrd MD Referring Physician: Nataliia Hinojosa MD Allergies, Adverse Reactions, Alerts Substance Reaction Severity [...] AM, 0 Refills, Maintenance, 04/22/19 10:45:51 EDT, [place] Start Date: 04/22/19 Status: Ordered lansoprazole 30 [...] Electronically, [facility], 158, cm, 12/14/20 13:34:00 EST, Height, 78, kg, 07/18/20 9:20:00 Dr.. GEMA. Start Date: 11/26/20 Status: Ordered Vitamin D3 oral tablet = 2,000 units, By Mouth, Daily, 0 Refills, Maintenance, 04/22/19 10:37:59 EDT Start Date: 04/22/19 Status: Ordered Problem List Condition Effective Dates Status Health Status Inform ant Obese class I(Confirmed) Active Vital Signs Most recent to oldest [Reference Range]: 1 Height 155 cm (03/26/22 1:49 PM) Weight 79.2 kg (03/26/22 1:49 PM) Oxygen Saturation [94-100 %] 97 % (03/26/22 1:49 PM) Pulse Rate [55-90 bpm] 65 bpm (03/26/22 1:49 PM) Body Mass Index [18.5-24.99] 32.97 *>HHI* (03/26/22 1:49 PM) Blood Pressure [90-138/55-84 mm Hg] 132/ 59mm Hg (03/26/22 1:49 PM) Blood pressure sites Arm, left (03/26/22 1:49 PM) Weight Obtained Via Standing scale (03/26/22 1:49 PM) Social History Social History Type Response Smoking Status Former smoker, quit more than 30 days ago entered on: 04/14/19 Sex Female
--- OUTSIDE RECORDS SUMMARY | 2024-01-26 07:32 | XMS_ITS | Continuity of Care Document ---
Author Organization [facility] Address [address] [place] [address]- Care Team Providers Care Hospital Housekeeper Name Role Phone Nataliia Hinojosa MD Primary Care Physician [phone] [facility] [place] Date(s): 12/19/22 - 01/18/23 [facility] [address] [place] [address]- [place] Allergies, Adverse Reactions, Alerts Substance Reaction [...] AM, 0 Refills, Maintenance, 04/22/19 10:45:51 EDT, [place] Start Date: 04/22/19 Status: Ordered lansoprazole 30 [...] Daily, Maintenance, 04/22/19 10:46:04 EDT Start Date: 8/9/19 Status: Ordered Singulair 10 mg oral tablet [...] 13:34:00 EST, Height, 78, kg, 07/18/20 9:20:00 EST, . Start Date: 11/26/20 Status: Ordered Problem List [...] Safety Implantable Status Assigning Authority Unknown Unknown [id number] Unknown 08/05/23 Unknown Unknown Active Un known Procedure Provider Procedure Date Device Type Site Lengthening Gastrocnemius Luca Acosta MD 06/02/22 Un known Foot Right Device Identifier Serial Number Lot or Batch Number Manufacturing Date Expiration Date Distinct Identification Code MRI Safety Implantable Status Assigning Authority Unknown [id number] -1 Unknown 10/11/23 Unknown Unknown Active Unknown Patient Care team information Care Team Personnel Name: Tracy Martinez RN [facility] RN Member Role: Primary Care Nurse Name: Nataliia Hinojosa MD Position: [facility] Physician (General Medicine) Member Role: PCP Address: Address: [address] [place] [address]- [place] Name: Maria Guadalupe Castellon RN Position: [facility] RN Supv Member Role: Primary Care Nurse Care Team Related Persons Name: YT NORTH Address: home [address] [place] [address] Name: VANESSA PATEL Address: home [address] [place] [address]
--- OUTSIDE RECORDS SUMMARY | 2024-01-26 07:32 | XMS_ITS | Continuity of Care Document ---
Author Organization [facility] Address [address] [address]- Care Team Providers Care Pearl Glue Drier Name Role Phone Nataliia Hinojosa MD Primary Care Physician En[place] [facility] [place] Date(s): 07/02/21 - 08/01/21 [facility] [address] [address]- [place] Allergies, Adverse Reactions, Alerts Substance Reaction [...] AM, 0 Refills, Maintenance, 04/22/19 10:45:51 EDT, [place] Start Date: 04/22/19 Status: Ordered lansoprazole 30 [...] 10:37:59 EDT Start Date: 04/22/19 Status: Ordered Social History Social History Type Response Smoking Status Former smoker, quit more than 30 days ago entered on: 04/14/19 Sex Female
--- OUTSIDE RECORDS SUMMARY | 2024-01-26 07:32 | XMS_ITS | Continuity of Care Document ---
Author Organization [facility] ter Address [address] [place] [id number]- Care Team Providers Care Ui Designer Name Role Phone Louis Shirley Primary Care Physician Encounter [facility] [place] [facility] Date(s): 11/20/23 - 11/21/[address] [address]- Discharge Disposition: A-D/C Home Attending Physician: Weston Byrd MD Admitting Physician: Weston Byrd MD Referring Physician: Weston Byrd MD Allergies, Adverse Reactions, Alerts Substance Reaction [...] Recorded tetanus-diphtheria toxoids (Td) 05/04/21 Recorded Medications Acetaminophen Tablet 650 mg, Tablet, By Mouth, Every 6 hours, PRN for Pain , Mild, Routine, 11/20/23 18:24:00 EST Start Date: 11/20/23 Stop Date: 11/21/23 Status: Discontinued CeleBREX 200 mg oral capsule 1 capsule = 200 mg, By Mouth, Daily, # 30 capsule, 0 Refills, Maintenance, 11/20/23 9:26:00 EST, Capsule, Partial fill upon patient request if the prescription is for a schedule II opioid drug. Start Date: 11/20/23 Status: Ordered Dilaudid 2 mg oral tablet 2 mg, Tablet, By Mouth, Every 6 hours, PRN for Pain , Moderate, Routine, 11/21/23 1:52:00 EST Start Date: 11/21/23 Stop Date: 11/21/23 Status: Discontinued Eliquis 5 mg oral tablet 1 tablet = 5 mg, By Mouth, 2 times a day, # 60 tablet, 5 Refills, Maintenance, 08/18/23 13:57:00 EST, Tablet, [facility] #[id number], Partial fill upon patient request if the prescription is fora schedule II opioid drug., 157, cm, 08/18/23 7:07:... Start Date: 08/18/23 Status: Ordered Eylea 40 mg/mL intraocular solution = 2 mg, 0 Refills, Maintenance, 06/27/21 3:35:00 EDT, Partial fill upon patient request if the prescription is for a schedule II opioid drug. Start Date: 06/27/21 Status: Ordered Flax Seed Oil 0 Refills, Maintenance, 11/20/23 9:26:00 EST, Partial fill upon patient request if the prescriptionis for a schedule II opioid drug. Start Date: 11/20/23 Status: Ordered Flonase 50 mcg/inh nasal spray 1 sprays, Nares, Both, Daily in AM, 0 Refills, Maintenance, 04/22/19 10:45:51 EDT, [place] Start Date: 04/22/19 Status: Ordered lansoprazole 30 mg oral enteric coated capsule 1 capsule = 30 mg, By Mouth, Daily, # 90 capsule, 0 Refills, Maintenance, EC Capsule Start Date: 04/28/13 Status: Ordered pantoprazole 40 mg oral delayed release tablet = 40 mg, By Mouth, 2 times a day, TAKE FOR ONE MONTH, # 60 tablet, 0 Refills, Maintenance, 11/20/2410:44:00 EST, EC Tablet, 160, cm, 11/21/23 8:09:00 EST, Height, 79, kg, 10/22/23 10:44:00 EST, Dry Weight Start Date: 11/21/23 Status: Ordered ProAir HFA 90 mcg/inh inhalation [...] XL 25 mg oral tablet, extended release 25 mg, 1, tablet, By Mouth, Daily, # 30 tablet, Refills 4, Tot. Refills 4, Maintenance, 11/21/23 11:44:00 EST, Route to Pharmacy Electronically, [facility] #[id number], 160, cm, 11/21/23 8:09:00EST, Height, 79, kg, 10/22/23 10:44:00 EST, Dry Weight Start Date: 11/21/23 Status: Ordered Problem List Condition Confirmation Course Effective Dates Status Health St atus Informant Arthritis Confirmed Active Asthma Confirmed Active Atrial fibrillation Confirmed Active GERD (gastroesophageal reflux disease) Confirmed Active B12 deficiency anemia Confirmed Active Obese class I Confirmed Active Vital Signs Most recent to oldest [Reference Range]: 1 2 3 Height 160 cm (11/21/23 8:09 AM) 160 cm (11/21/23 2:45 AM) 160 cm (11/20/23 9:05 PM) Weight 82.4 kg (11/21/23 6:14 AM) 82.8 kg (11/20/23 6:45 PM) 83 kg (11/20/23 9:16 AM) Oxygen Saturation [94-100 %] 97 % (11/21/23 8:09 AM) 97 % (11/21/23 2:45 AM) 97 % (11/20/23 9:05 PM) Pulse Rate [55-90 bpm] 73 bpm (11/21/23 8:09 AM) 74 bpm (11/21/23 2:45 AM) 79 bpm (11/20/23 9:05 PM) Body Mass Index [18.5-24.99 kg/m2] 32.34 kg/m2 *>HHI* (11/20/23 6:45 PM) 32.42 kg/m2 *>HHI* (11/20/23 9:16 AM) Blood Pressure [90-138/55-84 mm Hg] 118/67mm Hg (11/21/23 8:09 AM) 101/62mm Hg (11/21/23 2:45 AM) 91/59mm Hg (11/20/23 9:05 PM) Respiratory Rate [16-30 br/min] 18 br/min (11/21/23 8:09 AM) 18 br/min (11/21/23 7:19 AM) 16 br/min (11/21/23 3:06 AM) Temperature [96.8-100.4 DegF] 98.1 DegF (11/21/23 8:09 AM) 97.8 DegF (11/21/23 2:45 AM) 97.9 DegF (11/20/23 9:05 PM) Mode of Delivery (Oxygen) Room air (11/21/23 8:09 AM) Room air (11/21/23 2:45 AM) Room air (11/20/23 9:05 PM) Blood pressure sites Arm, left (11/21/23 8:09 AM) Arm, left (11/21/23 2:45 AM) Arm, left (11/20/23 9:05 PM) Temperature Route Temporal (11/21/23 8:09 AM) Temporal (11/21/23 2:45 AM) Temporal (11/20/23 9:05 PM) Weight Obtained Via Bed scale (11/20/23 6:45 PM) Standing scale (11/20/23 9:16 AM) Social History Social History Type Response Smoking [...] Safety Implantable Status Assigning Authority Unknown Unknown [id number] Unknown 08/05/23 Unknown Unknown Active Un known Procedure Provider Procedure Date Device Type Site Lengthening Gastrocnemius Luca Acosta MD 06/02/22 Un known Foot Right Device Identifier Serial Number Lot or Batch Number Manufacturing Date Expiration Date Distinct Identification Code MRI Safety Implantable Status Assigning Authority Unknown [id number] Unknown 10/11/23 Unknown Unknown Active Unknown Note * Event Display: Hemodynamic Procedure Report Authored Date: * Weston Byrd MD: PERFORM, SIGN, VERIFY Event Display: Discharge/Transfer Note Hospital Authored Date: Patient: STEFANIE PATEL Age: 68 years Sex: Female : 1955 Associated Diagnoses: None Author: Weston Byrd MD Discharge Information Admission Date: 11/20/2023 Principal Discharge Diagnosis Atrial fibrillation. Secondary Discharge Diagnoses S/P ablation of atrial fibrillation. Medications Medications reviewed.. Medications Started Protonix 40 mg po BID for one month Medications Discontinued Flecainide Doses Changed Metoprolol increased to 25 mg po daily Allergies Allergic Reactions (All) Severity Not Documented Codeine- N/v. Egg Allergy- Abd pain. Mold- Short of breath,sinus issues. Nuts- Per testing. Other Food Allergy- Dairy diarrhea. Percocet- Itch. Percodan- Itching. Vicodin- C/o - vomiting. Wheat- Psoriasis. Hospital Course 68 year old lady with paroxysmal SVT and PAF despite Flecainide presents for catheter ablation procedure by PVI and slow pathway modification. Tolerated procedure well, with no complications. Telemetry with no events. Ambulated with no difficulty. Discharged home the following day. Discharge Plan Discharge Disposition Discharge: home. Code Status: Full Code. Discharge Condition: good. * Ginger RAMSO, Trudy Little: PERFORM Event Display: Patient Education/Instruction Authored Date: [id number] Inpatient Adult Discharge Instructions. [address] [address] Name: STEFANIE PATEL : 1955?? Visit: 11/20/2023 08:29?? Current Date: 11/21/2023 12:36 ?? Account: [id number]?? Inpatient Adult Discharge Instructions We would like to thank you for allowing us to assist you with your healthcare needs. The following includes patient education materials and information regarding your injury/illness. Our entire staffstrives to provide an excellent experience for our patients and their families. PLEASE ENSURE YOU FOLLOW-UP PER THE INSTRUCTIONS BELOW! ?? YOUR OPINION IS IMPORTANT TO US! Please complete the survey you may receive by mail or email. Your feedback will be used to make improvements to the healthcare experiences of our patients and their families. Surveys are administered by [employer] ?? If further treatment with your primary care physician or another doctor is recommended, it is important for you to keep the appointment. Call your primary care physician or return to the Emergency Department immediately if your condition worsens, fails to improve, or new symptoms develop. If you need to find a doctor, you can call [facility] for a referral at [phone] or toll free at [phone] or log in to [email or web address]... ?? [facility], in keeping with [facility] guidance, no longer requires face masks for staff, patientsor visitors in most situations. Similiar to time spent indoors at other locations, there is the chance that you were exposed to repiratory viruses during your time with us (such as flu or COVID-19). If you develop symptoms concerning for a viral respiratory infection, please seek testing (and treatment if indicated) from your medical provider or home test kit. ?? You can view and manage your care through the patient portal or by using a health care lori of your choosing. [employer] is a website that allows you to securely view your medical information including your hospital discharge summary, office visit summaries, medications and follow-up visits. You can also request appointments, renew medications, and request access to your medical information using a health care lori of your choosing, or just ask a question. You can enroll at [email or web address] or register during your next office visit. You have been discharged from [facility], Patient Care Unit: M7??. If you have any questions regarding these instructions, including results of studies pending, afteryou leave, please call us and we will be happy to assist you 06/04. [facility] Your Care Team Attending Physician Weston Byrd MD?? Consulting Providers Weston Byrd MD?? Discharging Providers Weston Byrd MD Your Diagnosis Atrial fibrillation S/P ablation of atrial fibrillation Tests Performed Below is a partial list of the tests performed during your hospitalization. You may have had other tests and procedures not included in this list. Please discuss all test results with your provider. POC Hemochron ACT-LR Type and Screen No tests performed during this visit.?? Primary Care Provider Louis Shirley? Advance Directive Health Care Proxy on File No Discharge Vitals Temperature: 98.1 DegF Height: 160 cm Pulse Rate: 73 bpm Weight: 82.4 kg Respiratory Rate: 18 br/min Body Mass Index:??32.34 kg/m2??Critical Systolic Blood Pressure: 118 mm Hg Body surface area: 1.92 Diastolic Blood Pressure: 67 mm Hg ?? Oxygen Saturation: 97 % ?? Studies Pending All studies ordered during this hospital stay have been completed unless listed below. Please discuss all pending results with your provider listed above in these instructions. ?? No incomplete studies found?? What to do next Instructions From Your Doctor ?? Orders? 11/21/23 11:46:00 EST?? Prescriptions??, ??11/21/23 11:46:00 EST?? Scheduled Follow-Up Appointments 2023 1:40 PM EDT ?? Where: [facility] Status: Pending Discharge Medications STEFANIE PATEL :1955 Visit Date:11/20/2023 Medications: Please continue your medications until treatment is completed or stopped by your provider. Medications not listed below should be discontinued. Discuss any questions related to medications with your provider. What How Much When Instructions Next Dose New Pantoprazole (pantoprazole 40 mg oral delayed releasetablet) 40 Milligram Oral Twice a day TAKE FOR ONE MONTH ?? Pickup at [facility] #[id number] today at 9pm Changed Metoprolol (Toprol XL 25 mg oral tablet, extended release) 1 tab(s) Oral Daily Pickup at [facility] #[id number] tomorrow i am Unchanged Albuterol (ProAir HFA 90 mcg/ inh inhalation aerosol with adapter) 2 puff(s) Inhalation Every 4 hours as needed for for wheezing as your usual schedule Unchanged apixaban (Eliquis 5 mg oral tablet) 1 tab(s) Oral Twice a day today at 9pm Unchanged Celecoxib (CeleBREX 200 mg oral capsule) 1 capsule Oral Daily tomorrow i am Unchanged denosumab (Prolia) 60 Milligram Subcutaneous Infusion Every 6 months as your usual schedule Unchanged Flax (Flax Seed Oil) as your usual schedule Unchanged Fluticasone Nasal (Flonase 50 mcg/ inh nasal spray) 1 spray(s) Nares, Both Daily in the morning tomorrow i am Unchanged Lansoprazole (lansoprazole 30 mg oral enteric coated capsule) 1 capsule Oral Daily tomorrow i am Unchanged Montelukast (Singulair 10 mg oral tablet) 1 tab(s) Oral Daily today at bedtime Pharmacy Information [facility] #[id number]: [address], [place] [phone] ?? What How Much When Comments Stop Taking Flecainide (flecainide 50 mg oral tablet) 1 tab(s) Oral Every 12 hours Prescription Given During Visit Metoprolol (Toprol XL 25 mg oral tablet, extended release) - 1 tablet = 25 mg, By Mouth, Daily, # 30 tablet, 4 Refills, [facility] #[id number], [address] [place] [phone]?? Pantoprazole (pantoprazole 40 mg oral delayed release tablet) - 40 mg, By Mouth, 2 times a day, # 60 tablet, 0 Refills, TAKE FOR ONE MONTH, [facility] #[id number], [address] [place] [phone]?? Laboratory Results Below is a partial list of the most recent Laboratory test results done prior to this discharge. You may have had other tests and procedures not included in this list. Please discuss all test resultswith your provider. POC Hemochron ACT-LR (11/20/2023) ???POC ACT-LR - 302.0 seconds Type and Screen (11/20/2023) ???Blood Type - O Positive???Antibody Screen - Negative Allergies (NKA means No Known Allergies) Egg Allergy??(abd pain) Mold??(short of breath,sinus issues) Nuts??(per testing) Other Food Allergy??(dairy diarrhea) Percocet??(itch) Percodan??(itching) Vicodin??(C/O - vomiting) Wheat??(psoriasis) codeine??(N/V) Problems Active Problems??(6) Arthritis?? Asthma?? Atrial fibrillation?? B12 deficiency anemia?? GERD (gastroesophageal reflux disease)?? Obese class I?? Education Materials Below is the list of Educational Leaflet Providered with your Discharge Instructions. [employer] Patient Education - Apixaban Oral Tablet?? [employer] Patient Education - Pantoprazole Delayed Release Oral Tablet?? [employer] Patient Education - Metoprolol Extended Release Oral Tablet?? [employer] Patient Education - Discharge Instructions for Catheter Ablation?? [employer] Patient Education - Living with Atrial Fibrillation: Preventing Stroke?? Valuables and Belongings I fully understand and agree that [facility] accepts no responsibility for all my personal property including clothing, toilet articles, radios, jewelry, dentures, hearing aids, rings, money, or any other property that is in my possession or is brought to me after admission. I understand certain valuables may be placed in a hospital safe for a short period of time. I understand that the hospital is not liable for loss or damage due to accident, fire, or other natural occurrence while said property is in the safe. I accept full responsibility for any personal property that I keep with me, and will not hold the hospital responsible in case of loss or disappearance. I acknowledge that i have been encouraged to send valuables and belongings home. ? Other Discharge Information ? Pulmonary Rehab Status?? Pulmonary Rehab Discharge Status?? Respiratory Rate: 18 br/min ? Common Emergency Awareness Tips IS IT A STROKE? Act FAST and Check for these signs: FACE Does the face look uneven? ARM Does one arm drift down? SPEECH Does their speech sound strange? TIME Call at any sign of stroke ?? Heart Attack Signs Chest discomfort: Most heart attacks involve discomfort in the center of the chest and lasts more than a few minutes, or goes away and comes back. It can feel like uncomfortable pressure, squeezing, fullness or pain. Discomfort in upper body: Symptoms can include pain or discomfort in one or both arms, back, neck, jaw or stomach. Shortness of breath: With or without discomfort. Other signs: Breaking out in a cold sweat, nausea, or lightheaded. Remember, MINUTES DO MATTER. If you experience any of these heart attack warning signs, call to get immediate medical attention! ?? Smoking can increase your chances of developing chronic health problems and can cause harmful effects to other family members in your house. If you smoke, you are strongly encouraged to quit. Please call [facility] at [phone] or [phone]) or log in to [email or web address] for referrals to smoking cessation programs. ?? 013 Suicide & Crisis Lifeline is available 06/04 if you or someone you know needs to find a reason to keep living. By calling 969 you'll be connected to a skilled, trained counselor at a crisis center in your area. INPATIENT DISCHARGE INSTRUCTIONS SIGNATURE PAGE STEFANIE PATEL Location:[facility] Registration Date and Time:11/20/2023 08:29 EST Primary Care Physician: Louis Shirley, Attending Physician: Rochelle SANDERS, Weston John, I STEFANIE PATEL, have received the above patient education materials/instructions and have verbalized understanding. If ambulance or transport services are being used I further acknowledge being given a choice of service. ?? If you need to contact me, please call me at this number: . Patient/Tire Regrooving Machine Operator Name: Patient/Tire Regrooving Machine Operator Signature: Relationship to Patient: Witness Name/Signature: Date: * Trudy Miles RN: PERFORM Event Display: Patient Education Leaflets Authored Date: [id number] Apixaban Oral Tablet ?? [id number] Apixaban Oral Tablet Brands: Eliquis Uses This medicine is used for the following purposes: ??? blood disorder ??? prevent blood clots ??? treatment of blood clots ??? blood clot ?? Instructions This medicine may be taken with or without food. This medicine will work best if you take it at about the same time every day. Store at room temperature away from heat, light, and moisture. Do not keep in the bathroom. It is important that you keep taking each dose of this medicine on time even if you are feeling well. If you forget to take a dose on time, take it as soon as you remember. If it is almost time for thenext dose, do not take the missed dose. Return to your normal schedule. Do not take 2 doses at one time. Drug interactions can change how medicines work or increase risk for side effects. Tell your healthcare providers about all medicines taken. Include prescription and isxc-hro-xpuujui medicines, vitamins, and herbal medicines. Speak with your doctor or pharmacist before starting or stopping any medicine. Talk to your doctor before taking other medicines, including aspirins and ibuprofen containing products. Speak to your doctor about which medicines are safe to use while you are on this medicine. It is very important that you follow your doctor's instructions for all blood tests. ?? Cautions This medicine may cause serious bleeding problems in patients taking blood thinner medications. Follow your doctor's instructions carefully to monitor your blood lab tests if you are on blood thinners. Tell your doctor and pharmacist if you ever had an allergic reaction to a medicine. This medicine may cause serious bleeding from the stomach or bowels. Stop this medicine and call your doctor immediately if you see any signs of bleeding. Bleeding can cause pain in the stomach, vomiting up liquid that looks like coffee grounds, and red or dark tarry stools. There is an increased risk of bleeding while on this medicine, please tell your doctor or nurse if you notice any excessive bleeding or bruising. Do not use the medication any more than instructed. Please check with your doctor before drinking alcohol while on this medicine. Do not breastfeed while on this medicine. This medicine can hurt a new baby in the womb. If you become while on this medicine, tell your doctor immediately. Your doctor may switch you to a different medicine. Do not take Asha's wort while on this medicine. Do not share this medicine with anyone who has not been prescribed this medicine. Some patients have serious side effects from this medicine. Ask your pharmacist to show you the information from the Food and Drug Administration (FDA) and discuss it with you. Always refill this medicine before it runs out. ?? Side Effects The following is a list of some common side effects from this medicine. Please speak with your doctor about what you should do if you experience these or other side effects. ??? nosebleeds Call your doctor or get medical help right away if you notice any of these more serious side effects: ??? bleeding or bruising ??? coughing up blood or vomit that looks like coffee grounds ??? fainting??? numbness or tingling in hands and feet ??? severe or persistent headache ??? sudden leg pain, swelling, warmth or redness ??? loss of movement anywhere on the body ??? shortness of breath ??? bloody or dark, tarry stools ??? symptoms of stroke (such as one-sided weakness, slurred speech, confusion) ??? difficulty swallowing ??? unusual or unexplained tiredness or weakness ??? blood in urine ??? blurring or changes of vision A few people may have an allergic reaction to this medicine. Symptoms can include difficulty breathing, skin rash, itching, swelling, or severe dizziness. If you notice any of these symptoms, seek medical help quickly. ?? Extra Please speak with your doctor, nurse, or pharmacist if you have any questions about this medicine. ?? [email or web address] IMPORTANT NOTE: This document tells you briefly how to take your medicine, but it does not tell youall there is to know about it. Your doctor or pharmacist may give you other documents about your medicine. Please talk to them if you have any questions. Always follow their advice. There is a more complete description of this medicine available in Marshallese. Scan this code on your smartphone or tablet or use the web address below. You can also ask your pharmacist for a printout. If you have any questions, please ask your pharmacist. The display and use of this drug information is subject to Terms of Use. Copyright(c) 2022 [employer]. ?? [employer]. All rights reserved. This information is not intended as a substitute for professional medical care. Always follow your healthcare professional's instructions. ?? * Ginger RAMOS, Trudy Long.: PERFORM Event Display: Patient Education Leaflets Authored Date: [id number] Pantoprazole Delayed Release Oral Tablet ?? [id number] Pantoprazole Delayed Release Oral Tablet Brands: Protonix Uses This medicine is used for the following purposes: ??? indigestion ??? inflammation of stomach ??? inflammation of the esophagus ??? stomach acid ??? stomach acid reflux ??? ulcers in stomach or intestines ??? ulcers in stomach or intestines ?? Instructions Swallow the medicine without crushing or chewing it. This medicine may be taken with or without food. Store at room temperature away from heat, light, and moisture. Do not keep in the bathroom. This medicine can reduce the absorption of other medicines. Talk to your doctor or pharmacist aboutthe best times to use this product. If you forget to take a dose on time, take it as soon as you remember. If it is almost time for thenext dose, do not take the missed dose. Return to your normal schedule. Do not take 2 doses at one time. Drug interactions can change how medicines work or increase risk for side effects. Tell your healthcare providers about all medicines taken. Include prescription and cikc-lhl-hexebbr medicines, vitamins, and herbal medicines. Speak with your doctor or pharmacist before starting or stopping any medicine. Tell your doctor if symptoms do not get better or if they get worse. This medicine may affect the strength of your bones. If you have or are at increased risk for osteoporosis (weakening of the bones), your doctor may recommend foods with calcium and vitamin D. ?? Cautions Tell your doctor and pharmacist if you ever had an allergic reaction to a medicine. Do not use the medication any more than instructed. Please tell your doctor if you have moderate to severe diarrhea while on this medicine. Do not treat the diarrhea with gsys-fpk-balgmae diarrhea medicine. This medicine passes into breast milk. Ask your doctor before . During , this medicine should be used only when clearly needed. Talk to your doctor about the risks and benefits. Do not share this medicine with anyone who has not been prescribed this medicine. Some patients have serious side effects from this medicine. Ask your pharmacist to show you the information from the Food and Drug Administration (FDA) and discuss it with you. ?? Side Effects The following is a list of some common side effects from this medicine. Please speak with your doctor about what you should do if you experience these or other side effects. ??? diarrhea ??? headaches Call your doctor or get medical help right away if you notice any of these more serious side effects: ??? severe or persistent abdominal pain ??? severe, watery or bloody diarrhea ??? fever ??? numbness or tingling in hands and feet ??? fast or irregular heart beats ??? pain in the joints ??? signs of kidney damage (such as change in urine color or bubbly urine) ??? muscle aches, spasms or abnormalmovements ??? butterfly-shaped rash on nose and cheeks ??? seizures ??? blood in stool ??? unusual or unexplained tiredness or weakness A few people may have an allergic reaction to this medicine. Symptoms can include difficulty breathing, skin rash, itching, swelling, or severe dizziness. If you notice any of these symptoms, seek medical help quickly. ?? Extra Please speak with your doctor, nurse, or pharmacist if you have any questions about this medicine. ?? [email or web address] IMPORTANT NOTE: This document tells you briefly how to take your medicine, but it does not tell youall there is to know about it. Your doctor or pharmacist may give you other documents about your medicine. Please talk to them if you have any questions. Always follow their advice. There is a more complete description of this medicine available in Marshallese. Scan this code on your smartphone or tablet or use the web address below. You can also ask your pharmacist for a printout. If you have any questions, please ask your pharmacist. The display and use of this drug information is subject to Terms of Use. Copyright(c) 2022 [employer]G. ?? The [employer]. All rights reserved. This information is not intended as a substitute for professional medical care. Always follow your healthcare professional's instructions. ?? * Ginger RAMOS, Trudy Long.: PERFORM Event Display: Patient Education Leaflets Authored Date: [id number] Metoprolol Extended Release Oral Tablet ?? [address] Metoprolol Extended Release Oral Tablet Brands: Toprol Uses This medicine is used for the following purposes: ??? angina ??? heart attack ??? heart failure ???high blood pressure ??? irregular heart beat ??? prevent migraine headaches ??? movement disorder ?? Instructions Swallow the medicine without crushing or chewing it. This medicine may be taken with or without food. This medicine will work best if you take it at about the same time every day. Store at room temperature away from heat, light, and moisture. Do not keep in the bathroom. It is important that you keep taking each dose of this medicine on time even if you are feeling well. If you forget to take a dose on time, take it as soon as you remember. If it is almost time for thenext dose, do not take the missed dose. Return to your normal schedule. Do not take 2 doses at one time. Drug interactions can change how medicines work or increase risk for side effects. Tell your healthcare providers about all medicines taken. Include prescription and gfed-srk-nrwjydk medicines, vitamins, and herbal medicines. Speak with your doctor or pharmacist before starting or stopping any medicine. Tell your doctor if symptoms do not get better or if they get worse. If you have diabetes, this medicine may hide some signs of low blood sugar, such as fast heartbeat.Check your blood sugar regularly and for other signs of low blood sugar. Symptoms of low blood sugar may include nausea, shaking, sweating, cold skin, fast heartbeat, hunger, and irritability. If you need to stop this medicine, your doctor may wish to gradually reduce the dosage before stopping. Keep all appointments for medical exams and tests while on this medicine. ?? Cautions Tell your doctor and pharmacist if you ever had an allergic reaction to a medicine. Some patients with weak hearts may have worsening of symptoms. If you notice difficulty breathing, weight gain, or swelling of your legs or ankles, let your doctor know right away. Do not use the medication any more than instructed. This medicine may cause dizziness or fainting, especially after exercising or in hot weather. Be very careful when standing or sitting up quickly. Your ability to stay alert or to react quickly may be impaired by this medicine. Do not drive or operate machinery until you know how this medicine will affect you. Please check with your doctor before drinking alcohol while on this medicine. This medicine passes into breast milk. Ask your doctor before . During , this medicine should be used only when clearly needed. Talk to your doctor about the risks and benefits. Do not share this medicine with anyone who has not been prescribed this medicine. ?? Side Effects The following is a list of some common side effects from this medicine. Please speak with your doctor about what you should do if you experience these or other side effects. ??? diarrhea ??? dizziness or drowsiness ??? lack of energy and tiredness ??? slow heartbeat ??? lightheadedness Call your doctor or get medical help right away if you notice any of these more serious side effects: ??? confusion ??? depression or feeling sad ??? swelling of the legs, feet, and hands ??? fainting ??? cold hands or feet ??? mood changes ??? pale or blue skin, lips or fingernails ??? shortness of breath ??? unusual or unexplained tiredness or weakness ??? sudden or unexplained weight gain A few people may have an allergic reaction to this medicine. Symptoms can include difficulty breathing, skin rash, itching, swelling, or severe dizziness. If you notice any of these symptoms, seek medical help quickly. ?? Extra Please speak with your doctor, nurse, or pharmacist if you have any questions about this medicine. ?? [email or web address] IMPORTANT NOTE: This document tells you briefly how to take your medicine, but it does not tell youall there is to know about it. Your doctor or pharmacist may give you other documents about your medicine. Please talk to them if you have any questions. Always follow their advice. There is a more complete description of this medicine available in [place]ese. Scan this code on your smartphone or tablet or use the web address below. You can also ask your pharmacist for a printout. If you have any questions, please ask your pharmacist. The display and use of this drug information is subject to Terms of Use. Copyright(c) 2022 F2G. ?? [employer]. All rights reserved. This information is not intended as a substitute for professional medical care. Always follow your healthcare professional's instructions. ?? EKG study * Event Display: ECG 12-Lead Authored Date: Please click on pdf link to open report * Event Display: ECG 12-Lead Authored Date: Ventricular Rate: 68 BPM Atrial Rate: 68 BPM P-R Interval: 144 ms QRS Duration: 86 ms Q-T Interval: 410 ms QTC Calculation(Bazett): 435 ms P [place]: 49 degrees R [place]: -8 degrees T [place]: 17 degrees Sinus rhythm with occasional Premature ventricular complexes Otherwise normal ECG When compared with ECG of 21-OCT-2023 13:33, Premature ventricular complexes are now Present Nonspecific T wave abnormality, improved in Inferior leads T wave inversion no longer evident in Anterior leads Confirmed by SAMANTHA WELLS ([id number]) on 11/20/2023 12:32:22 PM [place]: SAMANTHA WELLS Cardiology * Event Display: Cardiac Rhythm Strips Authored Date: Hospital Progress note * Kalen Christine RN: PERFORM, SIGN, VERIFY Event Display: Progress Note Hospital Authored Date: Patient: STEFANIE PATEL Age: 68 years Sex: Female : 1955 Associated Diagnoses: None Author: Kalen Christine RN Findings Problem Related to Alteration in Cardiac Function (new) : Alteration in Cardiac Function/new 11/20/2023 21:00 EST Alteration in Cardiac Status Related to Cardiac Procedure (Modified) Goals & Outcomes, Cardiac Status Pt will resume/maintain adequate cardiac output, Pt will resume/maintain adequate hemodynamic status, Pt will resume/maintain adequate respiratory function, Pt will resume/maintain intact neuro function, Pt will maintain adequate GI/ function appropriate for pt Cardiac Interventions Implemented Assess/monitor cardiac status, Assess/monitor neuro status, Assess/monitor respiratory status, Assess for tolerance of IV infusions; verify rate & dose, Monitor & document daily weight, Obtain 12 Lead ECG and CXR as ordered, Prep pt for treatments & procedures, Teach/encourage deep breath & cough exercises BH Goals/Interventions, Cardiac Yes Cardiac, Problem Start 11/20/2023 21:00 Reviewed Plan with, Cardiac Status Patient Patient Progression, Cardiac Status Patient progressing according to plan . Narrative/Incidental Bilat groin sites tender,no active bleeding or hematoma,dressings dry and intact.Bedrest completed,OOB to BR with supervision,1 assist. Pain not well controlled with acetaminophen,additionalorders obtained for PO dilaudid, good pain control achieved. Monitor shows SR. Will continue to observe. * Susannah Falcon RN: SIGN, VERIFY, PERFORM Event Display: Progress Note Hospital Authored Date: Patient: STEFANIE PATEL Age: 68 years Sex: Female : 1955 Associated Diagnoses: None Author: Susannah Falcon RN Findings Evaluation Pt alert and oriented, transfered from care unit. SR on tele. Bilateral groin puncture sites with pressure dressings in place, clean, dry, intact. RA. Bedrest until 2200. Bladder scan to be completedat 2300. Call clemons and personal belongings within reach. . Patient Care team information Care Team Personnel Name: Louis Shirley Position: Reference Physician Member Role: PCP Address: Address: [address] [place] [address]- [place] Name: Kalen Christine RN Position: S RN Member Role: Primary Care Nurse Name: Reyna Martinez RN Position: S RN Member Role: Primary Care Nurse Care Team Related Persons Name: TY NORTH Address: home [address] [place] [address] Name: VANESSA PATEL Address: home [address] [place] [address]
--- OUTSIDE RECORDS SUMMARY | 2024-01-26 07:32 | XMS_ITS | Continuity of Care Document ---
Author Organization [facility] Address [address] [address]- Care Team Providers Care Surgical Attendant Name Role Phone Nataliia Hinojosa MD Primary Care Physician [phone] [facility] ACCT R [id number] Date(s): 11/08/21 - 11/15/21 [facility] [address] [address]- Attending Physician: Nathaly Sutherland Admitting Physician: Nathaly [...] AM, 0 Refills, Maintenance, 04/22/19 10:45:51 EDT, [place] Start Date: 04/22/19 Status: Ordered lansoprazole 30 [...]
--- OUTSIDE RECORDS SUMMARY | 2024-01-26 07:32 | XMS_ITS | Continuity of Care Document ---
Author Organization [facility] Address [address] [address]- Care Team Providers Care Size Mixer Name Role Phone Nataliia Hinojosa MD Primary Care Physician En[place] [facility] Date(s): 01/17/22 - 02/16/22 [facility] [address] [address]- Attending Physician: Admtr, Ar8 Admitting Physician: Admtr, Ar8 Referring Physician: Admtr, Ar8 Allergies, Adverse Reactions, Alerts Substance Reaction Severity Status codeine N/V Active Percocet itch Active Vicodin C/O - vomiting Active Egg Allergy abd pain Active Percodan itching Active Mold short of breath,sinus issues Active [...] AM, 0 Refills, Maintenance, 04/22/19 10:45:51 EDT, [place] Start Date: 04/22/19 Status: Ordered lansoprazole 30 [...]
--- OUTSIDE RECORDS SUMMARY | 2024-01-26 07:32 | XMS_ITS | Continuity of Care Document ---
Author Organization [facility] Address [address] [address]- Care Team Providers Care Nutter Up Name Role Phone Nataliia Hinojosa MD Primary Care Physician [phone] Encounter [facility] Date(s): 04/22/22 - 05/22/22 [facility] [address] [address]- [place] Allergies, Adverse Reactions, Alerts Substance Reaction Severity Status codeine N/V Active Percocet itch Active Percodan itching Active Vicodin C/O - vomiting Active Nuts per testing Active Egg Allergy abd pain Active Other Food Allergy dairy diarrhea Active Mold short of breath,sinus issues Active Wheat psoriasis Active Immunizations Given and Recorded Vaccine Date [...] AM, 0 Refills, Maintenance, 04/22/19 10:45:51 EDT, [place] Start Date: 04/22/19 Status: Ordered lansoprazole 30 [...] EST, . Start Date: 11/26/20 Status: Ordered Vitamin D3 oral tablet = 2,000 units, By Mouth, Daily, 0 Refills, Maintenance, 04/22/19 10:37:59 EDT Start Date: 04/22/19 Status: Ordered Problem List Condition Effective Dates Status Health Status Inform ant Arthritis(Confirmed) Active Asthma(Confirmed) Active Atrial fibrillation(Confirmed) Active GERD (gastroesophageal reflu x disease)(Confirmed) Active B12 deficiency anemia(Confirmed) Active Obese class I(Confirmed) Active Social History Social History Type Response Smoking Status Former smoker, quit more than 30 days ago; Other: Quit in 2008; entered on: 05/21/22 Sex Care Team Personnel Name: Nataliia Hinojosa MD Address: [address] [place] [id number]
--- OUTSIDE RECORDS SUMMARY | 2024-01-26 07:32 | XMS_ITS | Continuity of Care Document ---
Author Organization [facility] Address [address] [address]- Care Team Providers Care Parimutuel Ticket Checker Name Role Phone Nataliai Hinojosa MD Primary Care Physician [id number]12/21 - 12/19/21 [facility] [address] [address]- Attending Physician: Nathaly Sutherland Admitting Physician: Nathaly Sutherland Referring Physician: Nathaly Sutherland Allergies, Adverse Reactions, Alerts Substance Reaction Severity Status codeine N/V Active Percocet itch Active Mold short of breath,sinus issues Active Wheat psoriasis Active Other Food Allergy dairy diarrhea Active Egg Allergy abd pain Active Percodan itching Active Vicodin C/O - vomiting Active Nuts per testing Active Immunizations Given and Recorded Vaccine Date [...] AM, 0 Refills, Maintenance, 04/22/19 10:45:51 EDT, [place] Start Date: 04/22/19 Status: Ordered lansoprazole 30 [...]
--- OUTSIDE RECORDS SUMMARY | 2024-01-26 07:33 | XMS_ITS | Continuity of Care Document ---
Author Organization [facility] Address [address] [address]- Care Team Providers Care Financial Center Manager Name Role Phone Nataliia Hinojosa MD Primary Care Physician [id number] Date(s): 07/29/22 - 08/05/22 [facility] [address] [address]- Attending Physician: Nathaly Sutherland Admitting Physician: Nathaly Sutherland Referring Physician: Nathaly Sutherland Allergies, Adverse Reactions, Alerts Substance Reaction Severity Status codeine N/V Active Percocet itch Active Percodan itching Active Vicodin C/O - vomiting Active Mold short of breath,sinus issues Active Nuts per testing Active Other Food Allergy dairy diarrhea Active Egg Allergy abd pain Active Wheat psoriasis Active Immunizations Given and [...] AM, 0 Refills, Maintenance, 04/22/19 10:45:51 EDT, [place] Start Date: 04/22/19 Status: Ordered lansoprazole 30 [...] Safety Implantable Status Assigning Authority Unknown Unknown [id number] Unknown 08/05/23 Unknown Unknown Active Un known Procedure Provider Procedure Date Device Type Site Lengthening Luca Pedro MD 06/02/22 Un known Foot Right Device Identifier Serial Number Lot or Batch Number Manufacturing Date Expiration Date Distinct Identification Code MRI Safety Implantable Status Assigning Authority Unknown [id number] Unknown 10/11/23 Unknown Unknown Active Unknown Patient Care team information Care Team Personnel Name: Tracy Martinez RN Position: [facility] RN Member Role: Primary Care Nurse Name: Nataliia Hinojosa MD Position: [facility] Physician (General Medicine) Member Role: PCP Address: Address: [address] [place], [place] [address] Name: Maria Guadalupe Castellon RN Position: [facility] RN Supv Member Role: Primary Care Nurse Care Team Related Persons Name: TY NORTH Address: home [address] [place] [address] Name: VANESSA PATEL Address: home [address] [place] [address]
--- OUTSIDE RECORDS SUMMARY | 2024-01-26 07:33 | XMS_ITS | Continuity of Care Document ---
Author Organization [facility] Address [address] [address]- Care Team Providers Care Fellmongery Worker Name Role Phone Nataliia Hinojosa MD Primary Care Physician Encounter [facility] Date(s): 08/05/21 - 08/12/21 [facility] [address] [address]- Attending Physician: Glenroy Mcghee MD Admitting Physician: Glenroy Mcghee MD Referring Physician: Glenroy Mcghee MD Allergies, Adverse Reactions, Alerts Substance Reaction [...] solution = 2 mg, 0 Refills, Maintenance, 10/14/21 3:35:00 EDT, Partial fill upon patient request [...] AM, 0 Refills, Maintenance, 04/22/19 10:45:51 EDT, [place] Start Date: 04/22/19 Status: Ordered lansoprazole 30 [...]
--- OUTSIDE RECORDS SUMMARY | 2024-01-26 07:33 | XMS_ITS | Continuity of Care Document ---
Author Organization [facility] Address [address] [address]- Care Team Providers Care Set Up Mechanic Coating Machines Name Role Phone Nataliia Hinojosa MD Primary Care Physician [phone] [id number] Date(s): 04/21/23 - 04/28/23 [facility] [address] [address]- Attending Physician: Nathaly Sutherland Admitting Physician: Nathaly Sutherland Referring Physician: Nathaly Sutherland Allergies, Adverse Reactions, Alerts Substance Reaction Severity Status codeine N/V Active Percocet itch Active Percodan itching Active Vicodin C/O - vomiting Active Mold short of breath,sinus issues Active Wheat psoriasis Active Other Food Allergy dairy diarrhea Active Egg Allergy abd pain Active Nuts per testing Active Immunizations Given [...] AM, 0 Refills, Maintenance, 04/22/19 10:45:51 EDT, [place] Start Date: 04/22/19 Status: Ordered lansoprazole 30 [...] Safety Implantable Status Assigning Authority Unknown Unknown [id number] Unknown 08/05/23 Unknown Unknown Active Un known Procedure Provider Procedure Date Device Type Site Lengthening Gastrocnemius Luca Acosta MD 06/02/22 Un known Foot Right Device Identifier Serial Number Lot or Batch Number Manufacturing Date Expiration Date Distinct Identification Code MRI Safety Implantable Status Assigning Authority Unknown [id number] Unknown 10/11/23 Unknown Unknown Active Unknown Patient Care team information Care Team Personnel Name: Tracy Martinez RN Position: [facility] RN Member Role: Primary Care Nurse Name: Nataliia Hinojosa MD Position: S Physician - Primary Care Member Role: PCP Address: Address: [address] [place], [place] [address] Name: Maria Guadalupe Castellon RN Position: [facility] RN Supv Member Role: Primary Care Nurse Care Team Related Persons Name: TY NORTH Address: home [address] [place] [address] Name: VANESSA PATEL Address: home [address] [place] [address]
--- OUTSIDE RECORDS SUMMARY | 2024-01-26 07:33 | XMS_ITS | Continuity of Care Document ---
Author Organization [facility] Address [address] [address]- Care Team Providers Care Lsat Instructor Name Role Phone Nataliia Hinojosa MD Primary Care Physician [id number] Date(s): 07/02/20 - 09/21/20 [facility] [address] [address]- Attending Physician: Weston Byrd MD Admitting Physician: Weston Byrd MD Referring Physician: Nataliia Hinojosa MD Allergies, Adverse Reactions, Alerts Substance Reaction Severity Status codeine N/V Active Percocet itch Active Percodan itching Active Vicodin C/O - vomiting Active Mold short of breath,sinus issues Active Nuts per testing Active Wheat psoriasis Active Egg Allergy abd pain Active Other Food Allergy dairy diarrhea Active Medications Acetaminophen = 1,000 mg, By Mouth, [...] 10:44:07 EDT Start Date: 04/22/19 Status: Ordered Flax Seed Oil 0 Refills, Maintenance, 08/27/20 13:45:00 EST, Partial fill upon patient request if the prescription is for a schedule II opioid drug. Start Date: 08/27/20 Status: Ordered Flonase 50 mcg/inh nasal spray 1 sprays, Nares, Both, Daily in AM, 0 Refills, Maintenance, 04/22/19 10:45:51 EDT, [place] Start Date: 04/22/19 Status: Ordered lansoprazole 30 [...] 9:36:49, Aeros[place] Start Date: 08/25/17 Status: Ordered Pt.'s Own Meds probiotic 1 [...] tablet, Refills 3, Tot. Refills 3, Maintenance, 09/02/19 13:08:00 EST, Route to Pharmacy Electronically, [facility], 154.94, cm, 05/12/19 16:19:00 EDT, Height, 80.9, kg, 04/25/19 6:59:00 E... Start Date: 09/02/19 Status: Ordered Vitamin D3 oral tablet = 2,000 units, By Mouth, Daily, 0 Refills, Maintenance, 04/22/19 10:37:59 EDT Start Date: 04/22/19 Status: Ordered Social History Social History Type Response Smoking Status Former smoker, quit more than 30 days ago entered on: 04/14/19 Sex
--- OUTSIDE RECORDS SUMMARY | 2024-01-26 07:33 | XMS_ITS | Continuity of Care Document ---
Author Organization [facility] Address [address] [place] [address]- Care Team Providers Care Medical Center Director Name Role Phone Nataliia Hinojosa MD Primary Care Physician Encounter [facility] Date(s): 01/13/23 - 02/12/23 [facility] [address] [place] [address] [place] Allergies, Adverse Reactions, Alerts Substance Reaction [...] AM, 0 Refills, Maintenance, 04/22/19 10:45:51 EDT, [place] Start Date: 04/22/19 Status: Ordered lansoprazole 30 [...] Safety Implantable Status Assigning Authority Unknown Unknown [id number] Unknown 08/05/23 Unknown Unknown Active Un known Procedure Provider Procedure Date Device Type Site Lengthening Gastrocnemius Luca Acosta MD 06/02/22 Un known Foot Right Device Identifier Serial Number Lot or Batch Number Manufacturing Date Expiration Date Distinct Identification Code MRI Safety Implantable Status Assigning Authority Unknown [id number] Unknown 10/11/23 Unknown Unknown Active Unknown Patient Care team information Care Team Personnel Name: Tracy Martinez RN Position: [facility] RN Member Role: Primary Care Nurse Name: Nataliia Hinojosa MD Position: [facility] Physician - Primary Care Member Role: PCP Address: Address: [facility] [place] [address]- Name: Maria Guadalupe Castellon RN Position: [facility] RN Supv Member Role: Primary Care Nurse Care Team Related Persons Name: TY NORTH Address: home [address] [place] [address] Name: VANESSA PATEL Address: home [address] [place] [address]
--- OUTSIDE RECORDS SUMMARY | 2024-01-26 07:33 | XMS_ITS | Continuity of Care Document ---
Author Organization [facility] Address [address] [address]- Care Team Providers Care Automobile Club Membership Sales Agent Name Role Phone Nataliia Hinojosa MD Primary Care Physician [phone] [place] [facility] [id number] Date(s): 10/07/21 - 10/14/21 [facility] [address] [address]- Attending Physician: Nathaly Sutherland Admitting Physician: Nathaly [...] AM, 0 Refills, Maintenance, 04/22/19 10:45:51 EDT, [place] Start Date: 04/22/19 Status: Ordered lansoprazole 30 [...]
--- OUTSIDE RECORDS SUMMARY | 2024-01-26 07:33 | XMS_ITS | Continuity of Care Document ---
Author Organization [facility] Address [address] [address]- Care Team Providers Care Cad Detailer Name Role Phone Nataliia Hinojosa MD Primary [facility] Physician [id number]21 [facility] [address] [address]- Attending Physician: Glenroy Mcghee MD Admitting Physician: [...] AM, 0 Refills, Maintenance, 04/22/19 10:45:51 EDT, [place] Start Date: 04/22/19 Status: Ordered lansoprazole 30 [...]
--- OUTSIDE RECORDS SUMMARY | 2024-01-26 07:33 | XMS_ITS | Continuity of Care Document ---
Author Organization [facility] Address [address] [place] [address]- Care Team Providers Care Vulcanized Fiber Unit Operator Name Role Phone Nataliia Hinojosa MD Primary Care Physician [place] [facility] [place] Date(s[place] 03/05/23 - 04/04/23 [facility] [address] [place] [address]- Attending Physician: Admtr, Ar8 Admitting Physician: Admtr, [...] AM, 0 Refills, Maintenance, 04/22/19 10:45:51 EDT, [place] Start Date: 04/22/19 Status: Ordered lansoprazole 30 [...] Safety Implantable Status Assigning Authority Unknown Unknown [id number] Unknown 08/05/23 Unknown Unknown Active Un known Procedure Provider Procedure Date Device Type Site Lengthening Gastrocnemius Luca Acosta MD 06/02/22 Un known Foot Right Device Identifier Serial Number Lot or Batch Number Manufacturing Date Expiration Date Distinct Identification Code MRI Safety Implantable Status Assigning Authority Unknown [id number] -1 Unknown 10/11/23 Unknown Unknown Active Unknown Patient Care team information Care Team Personnel Name: Tracy Martinez RN Position: [facility] RN Member Role: Primary Care Nurse Name: Nataliia Hinojosa MD Position: [facility] Physician - Primary Care Member Role: PCP Address: Address: [address] [place], [place] [address] Name: Maria Guadalupe Castellon RN Position: [facility] RN Supv Member Role: Primary Care Nurse Care Team Related Persons Name: TY NORTH Address: home [address] [place] [address] Name: VANESSA PATEL Address: home [address] [place] [address]
--- OUTSIDE RECORDS SUMMARY | 2024-01-26 07:33 | XMS_ITS | Continuity of Care Document ---
Author Organization [facility] Address [address] [address]- Care Team Providers Care Amusement Park Worker Name Role Phone Rd Lowery MD Primary Care Physician [phone] [place] [facility] [place] - 02/29/20 [facility] [address] [address]- [place] Attending Physician: Weston Byrd MD Admitting Physician: Weston Byrd MD Referring Physician: Rd Lowery MD Allergies, Adverse Reactions, Alerts Substance Reaction Severity Status codeine N/V Active Percocet itch Active Percodan itching Active Vicodin C/O - vomiting Active Mold short of breath,sinus issues Active Nuts per testing Active Wheat psoriasis Active Other Food Allergy dairy diarrhea Active Egg Allergy abd pain Active Medications Acetaminophen = 1,000 mg, By [...] 10:44:07 EDT Start Date: 04/22/19 Status: Ordered Flonase 50 mcg/inh nasal spray 1 sprays, Nares, Both, Daily in AM, 0 Refills, Maintenance, 04/22/19 10:45:51 EDT, [place] Start Date: 04/22/19 Status: Ordered lansoprazole 30 [...] 10:37:59 EDT Start Date: 04/22/19 Status: Ordered Vital Signs Most recent to oldest [Reference Range]: 1 Height 154.94 cm (02/22/20 10:01 AM) Weight 81.0 kg (02/22/20 10:01 AM) Pulse Rate [55-90 bpm] 59 bpm (02/22/20 10:01 AM) Body Mass Index [18.5-24.99] 33.74 *>HHI* (02/22/20 10:01 AM) Blood Pressure [90-138/55-84 mm Hg] 128/ 64mm Hg (02/22/20 10:01 AM) Social History Social History Type Response Smoking Status Former smoker, quit more than 30 days ago entered on: 04/14/19 Sex
--- OUTSIDE RECORDS SUMMARY | 2024-01-26 07:33 | XMS_ITS | Continuity of Care Document ---
Author Organization [facility] Address [address] [address]- Care Team Providers Care Associate School Psychologist Name Role Phone Nataliia Hinojosa MD Primary Care Physician [phone] [id number] Date(s): 09/25/20 - 10/02/20 [facility] [address] [address]- Attending Physician: Glenroy Mcghee MD Admitting Physician: [...] AM, 0 Refills, Maintenance, 04/22/19 10:45:51 EDT, [place] Start Date: 04/22/19 Status: Ordered lansoprazole 30 [...]
--- OUTSIDE RECORDS SUMMARY | 2024-01-26 07:33 | XMS_ITS | Continuity of Care Document ---
Author Organization [facility] Address [address] [address]- Care Team Providers Care Citrix Lead Name Role Phone Nataliia Hinojosa MD Primary Care Physician [place] [facility] [id number] Date(s): 08/25/22 - 09/24/22 [facility] [address] [address]- [place] Allergies, Adverse Reactions, Alerts Substance Reaction Severity Status codeine N/V Active Percocet itch Active Nuts per testing Active Wheat psoriasis Active Egg Allergy abd pain Active Percodan itching Active Vicodin C/O - vomiting Active Mold short of breath,sinus issues Active Other Food Allergy dairy diarrhea Active [...] AM, 0 Refills, Maintenance, 04/22/19 10:45:51 EDT, [place] Start Date: 04/22/19 Status: Ordered lansoprazole 30 [...] Safety Implantable Status Assigning Authority Unknown Unknown [id number] Unknown 08/05/23 Unknown Unknown Active Un known Procedure Provider Procedure Date Device Type Site Lengthening Gastrocnemius Luca Acosta MD 06/02/22 Un known Foot Right Device Identifier Serial Number Lot or Batch Number Manufacturing Date Expiration Date Distinct Identification Code MRI Safety Implantable Status Assigning Authority Unknown [id number] Unknown 10/11/23 Unknown Unknown Active Unknown Patient Care team information Care Team Personnel Name: Tracy Martinez RN Position: [facility] RN Member Role: Primary Care Nurse Name: Nataliia Hinojosa MD Position: [facility] Physician (General Medicine) Member Role: PCP Address: Address: [facility] [place] [address]- [place] Name: Maria Guadalupe Castellon RN Position: [facility] RN Supv Member Role: Primary Care Nurse Care Team Related Persons Name: TY NORTH Address: home [address] [place] [address] [place] [address] Name: JORGE VANESSA Address: home [address] [place] [address]
--- OUTSIDE RECORDS SUMMARY | 2024-01-26 07:33 | XMS_ITS | Continuity of Care Document ---
Author Organization [facility] Address [address] [address]- Care Team Providers Care Oracle Hyperion Consultant Name Role Phone Nataliia Hinojosa MD Primary Care Physician En[place] [facility] [place] [id number] Date(s): 12/05/22 - 12/12/22 [facility] [address] [address]- Attending Physician: Nathaly Sutherland Admitting Physician: Nathaly [...] AM, 0 Refills, Maintenance, 04/22/19 10:45:51 EDT, [place] Start Date: 04/22/19 Status: Ordered lansoprazole 30 [...] Safety Implantable Status Assigning Authority Unknown Unknown [id number] Unknown 08/05/23 Unknown Unknown Active Un known Procedure Provider Procedure Date Device Type Site Lengthening Gastrocnemius Luca Acosta MD 06/02/22 Un known Foot Right Device Identifier Serial Number Lot or Batch Number Manufacturing Date Expiration Date Distinct Identification Code MRI Safety Implantable Status Assigning Authority Unknown [id number] Unknown 10/11/23 Unknown Unknown Active Unknown Patient Care team information Care Team Personnel Name: Tracy Martinez RN Position: [facility] RN Member Role: Primary Care Nurse Name: Nataliia Hinojosa MD Position: [facility] Physician (General Medicine) Member Role: PCP Address: Address: [facility] [place], [place] [address] Name: Maria Guadalupe Castellon RN Position: [facility] RN Supv Member Role: Primary Care Nurse Care Team Related Persons Name: TY NORTH Address: home [address] [place] [address] Name: VANESSA PATEL Address: home [address] [place] [address]
--- OUTSIDE RECORDS SUMMARY | 2024-01-26 07:33 | XMS_ITS | Continuity of Care Document ---
Author Organization [facility] [place] [address] [address]- Care Team Providers Care Pipe Or Steam Fitter Furnace Installer Name Role Phone Louis Shirley Primary Care Physician [place] [facility] [place] Date(s): 09/02/23 - 09/09/23 [facility] [address] [address]- Attending Physician: Weston Byrd MD Admitting Physician: Weston Byrd MD Referring Physician: Louis Shilrey Allergies, Adverse Reactions, Alerts Substance Reaction Severity [...] 10:46:54 EDT Start Date: 04/22/19 Status: Ordered acetaminophen 500 mg oral capsule See Instructions, PRN for fever, 2 capsule By Mouth Every 8 hours, 0 Refills, Maintenance, 07/10/2310:41:00 EDT, Capsule, Partial fill upon patient request if the prescription is for a schedule II opioid drug. Start Date: 07/10/23 Status: Ordered aspirin 325 mg oral capsule 1 capsule = 325 mg, By Mouth, Daily, # 30 capsule, 0 Refills, Maintenance, 07/10/23 10:41:00 EDT, Capsule, Partial fill upon patient request if the prescription is for a schedule II opioid drug. Start Date: 07/10/23 Status: Ordered Calcium 500+D 1 tablet, 2 [...] 9:38:22, [place] Start Date: 08/25/17 Status: Ordered Dilaudid 2 mg oral tablet See Instructions, PRN as needed for pain, 1 tablet By Mouth Every 4-6 hours, 0 Refills, Maintenance, 07/10/23 10:41:00 EDT, Tablet, Partial fill upon patient request if the prescription is for a schedule II opioid drug. Start Date: 07/10/23 Status: Ordered Eliquis 5 mg oral tablet 1 tablet = 5 mg, By Mouth, 2 times a day, # 60 tablet, 5 Refills, Maintenance, 08/18/23 13:57:00 EST, Tablet, [id number], Partial fill upon patient request if the [...] AM, 0 Refills, Maintenance, 04/22/19 10:45:51 EDT, [place] Start Date: 04/22/19 Status: Ordered lansoprazole 30 [...] recent to oldest [Reference Range]: 1 Height 157 cm (09/02/23 10:04 AM) Weight 80.8 kg (09/02/23 10:04 AM) Oxygen Saturation [94-100 %] 100 % (09/02/23 10:04 AM) Pulse Rate [55-90 bpm] 64 bpm (09/02/23 10:04 AM) Body Mass Index [18.5-24.99 kg/m2] 32.78 kg/m2 *>HHI* (09/02/23 10:04 AM) Blood Pressure [90-138/55-84 mm Hg] 128/ 53mm Hg (09/02/23 10:04 AM) Blood pressure sites Arm, left (09/02/23 10:04 AM) Weight Obtained Via Standing scale (09/02/23 10:04 AM) Social History Social History Type Response [...] Safety Implantable Status Assigning Authority Unknown Unknown [id number] Unknown 08/05/23 Unknown Unknown Active Un known Procedure Provider Procedure Date Device Type Site Lengthening Gastrocnemius Luca Acosta MD 06/02/22 Un known Foot Right Device Identifier Serial Number Lot or Batch Number Manufacturing Date Expiration Date Distinct Identification Code MRI Safety Implantable Status Assigning Authority Unknown [id number] -1 Unknown 10/11/23 Unknown Unknown Active Unknown EKG study * Event Display: ECG 12-Lead Authored Date: Please click on pdf link to open report * Event Display: ECG 12-Lead Authored Date: Ventricular Rate: 64 BPM Atrial Rate: 64 BPM P-R Interval: 130 ms QRS Duration: 84 ms Q-T Interval: 400 ms QTC Calculation(Bazett): 412 ms P [place]: 34 degrees R [place]: -8 degrees T [place]: -17 degrees Normal sinus rhythm Nonspecific ST and T wave abnormality Abnormal ECG When compared with ECG of 18-AUG-2023 06:39, No significant change was found Confirmed by Ernie Wang ([id number]) on 09/03/2023 7:28:39 AM [place]: Ernie Wang Cardiology Outpatient Note * Rochelle SANDERS, Weston John: PERFORM Event Display: Cardiology Note Office Authored Date: Patient: ??TSEFANIE PATEL ? Age:??68 Years?Sex:??Female?:??1955?? Indication for Consult Paroxysmal atrial fibrillation??and SVT History of Present Illness/Interval History I saw Bam in follow-up in the cardiac arrhythmia clinic at [facility]. ??He is a 68-year-old lady was known to me from the outpatient setting with history of??probable paroxysmal SVT and paroxysmal atrial fibrillation who underwent an EP study in August 2023 where she was only inducible for??paroxysmal atrial fibrillation and was very easily inducible for that.?? There was no evidence of slow pathway??conduction.?? Procedure was aborted and the patient was rescheduled to have a catheter ablation procedure for atrial fibrillation. ??She remains on flecainide 50 mg p.o. twice daily ??without any recurrence of atrial fibrillation. ??She is on Eliquis 5 mg p.o. twice daily for primary stroke prophylaxis. Review of Systems ?Constitutional, Eye, Skin, Head/Neck, ENMT, Respiratory, Cardio, Gastrointestinal, Endocrine, Muscoloskeletal, Neurologic, Psych reviewed and negative except as noted in HPI.?? Physical Exam Vitals & Measurements HR:??64??(Peripheral)?? BP:??128/53?? SpO2:??100%?? HT:??157??cm?? WT:??80.8??kg?? BMI:??32.78?? Weight lb/oz: 178 lb 2 oz ?General not in acute distress ?HEENT: PERRLA ?Neck: No JVD, No thyromegaly ?Lungs: clear to auscultation bilaterally ?Cardiovascular: regular rate and rhythm, normal s1 and s2 no murmurs ?Abdomen: soft, nontender, positive bowel sounds ?Extremities: no edema ?Skin: No rash ?Neuro: grossly normal ?? EKG shows normal sinus rhythm with normal conduction terminals Assessment/Plan Symptomatic paroxysmal atrial fibrillation [id number] 3 Paroxysmal SVT Afib Ordered: ECG 12 Lead ?? I had a very long discussion with the patient about management strategies of atrial fibrillation??including??rate control strategy versus rhythm control strategy and that I would favor a??rhythm control strategy in this symptomatic patient. ??We discussed antiarrhythmic??medications in great detail??versus the catheter ablation procedure as a means for maintenance of normal sinus rhythm.?? We then talked about??the pathophysiology of atrial fibrillation in great detail??and the catheter ablation procedure??including the overall??success being??70 to 80% at maintenance of normal sinus rhythm??and the risks which include are not limited to??groin complications, tamponade requiring pericardiocentesis, phrenic nerve injury, pulmonary vein stenosis,??complete heart block requiring pacemaker placement,??stroke, myocardial infarction,??and atrial esophageal fistula formation.?? Patient understands and is willing to proceed. ?? Patient will continue flecainide 50 mg p.o. twice daily and Eliquis 5 mg p.o. twice daily. ?? Weston Byrd MD Problem List/Past Medical History Ongoing Arthritis Asthma Atrial fibrillation B12 deficiency anemia GERD (gastroesophageal reflux disease) Obese class I Procedure/Surgical History Right thyroid lobectomy: 04/25/19 Right foot [facility] Medications No qualifying data available Lab Results Cardiology Labs WBC: 10.9 k/mm3 (07/16/23) RBC: 4.5 m/mm3 (07/16/23) Hgb: 12.6 Gm/dL (07/16/23) Hct: 39.2 % (07/16/23) MCV: 87.1 femtoliters (07/16/23) MCH: 28 pg (07/16/23) MCHC:??32.1 g/dL??Low (07/16/23) Platelet Count: 333 k/mm3 (07/16/23) RDW-SD: 42 femtoliters (07/16/23) Nucleated RBC (Automated): 0 #/100 WBC'S (07/16/23) Abs. Neut:??7.5 k/mm3??High (07/16/23) Abs. Lymph: 2.6 k/mm3 (07/16/23) Abs. [place]: 0.6 k/mm3 (07/16/23) Abs. Eo: 0.2 k/mm3 (07/16/23) Abs. Baso: 0.1 k/mm3 (07/16/23) Neut %: 68.3 % (07/16/23) [place] %: 5.2 % (07/16/23) Eos %: 1.6 % (07/16/23) Baso %: 0.8 % (07/16/23) Imm Gran: 0.6 % (07/16/23) Abs. Imm Gran: 0.1 k/mm3 (07/16/23) Sodium: 140 mmol/L (07/16/23) Potassium: 4 mmol/L (07/16/23) Chloride: 102 mmol/L (07/16/23) Bicarbonate Level: 28 mmol/L (07/16/23) Glucose Level: 97 mg/dL (07/16/23) BUN: 14 mg/dL (07/16/23) Creatinine-Blood: 0.8 mg/dL (07/16/23) Calcium: 9.1 mg/dL (07/16/23) Protein, Total: 6.4 Gm/dL (07/16/23) Albumin: 4 Gm/dL (07/16/23) Alkaline Phosphatase: 70 units/L (07/16/23) AST (SGOT): 15 units/L (07/16/23) ALT (SGPT): 14 units/L (07/16/23) Bilirubin, Total: 0.4 mg/dL (07/16/23) Diagnostic Impression ECG ECG 12-Lead ?? 06:39:55 Please click on pdf link to open report ?? Signed By: Ave Wells MD ?? ECG 12-Lead ?? 06:39:55 Ventricular Rate: 65 BPM Atrial Rate: 65 BPM P-R Interval: 136 ms QRS Duration: 82 ms Q-T Interval: 402 ms QTC Calculation(Bazett): 418 ms P [place]: 55 degrees R [place]: -12 degrees T [place]: -35 degrees Normal sinus rhythm Nonspecific ST and T wave abnormality Abnormal ECG When compared with ECG of 12-AUG-2023 13:07, No significant change was found Confirmed by AVE WELLS ([id number]) on 08/18/2023 3:17:32 PM ?? [place]: AVE WELLS ?? Signed By: Ave Wells MD A Stress Test NM Myocard Perf SPECT Single ?? 07/10/21 12:34:01 Summary Normal. No evidence of stress induced ischemia or prior myocardial infarction. Normal left ventricular ejection fraction, no wall motion abnormalities, normal chamber size. Low likelihood of hemodynamically significant coronary artery disease. There were no previous studies available for comparison. ?? Signatures ?? Signed By: Taz SANDERS, Glenroy Galindo Note * Amaya Louie: PERFORM, SIGN, VERIFY Event Display: Patient Education/Instruction Authored Date: [facility] *[facility] Hrt Vas Off Clinical Summary Name STEFANIE PATEL Age 68 Years 1955 PCP Louis Shirley PCP Visit Date 09/02/2023 09:42:00 Additional Instructions: Scheduled Appointments?? Future Appointments ?[facility]??Hrt??Vas??Diag ?Phone:??--?Fax:??-- ?Appt. Date:??10/06/2023?3:10 PM ?Scheduled Provider:??[facility] [place] [facility] ?[address],??[place],??[address] ?Phone:??[phone]?Fax:??-- ?Appt. Date:??10/17/2023?9:00 AM ?Scheduled Provider:??[facility] [address] ?Electrophysiology ?[address]??[place],??[place],??[address] ?Phone:??[phone]?Fax:??-- ?Appt. Date:??10/20/2023?11:00 AM ?Scheduled Provider:??[id number] ?Anesthesia??[facility] ?[address],??[place],??[address] ?Phone:??[phone]?Fax:??-- ?Appt. Date:??10/20/2023?11:00 AM ?Scheduled Provider:??[id number] Follow-Up Instructions ?? Diagnosis Unspecified atrial fibrillation Medications: Please continue your medications until treatment is completed or stopped by your provider. Discuss any questions related to medications with your provider. Medications to Continue with No Changes These medications were not printed or sent to your pharmacy Acetaminophen 1,000 Milligram Oral Daily as needed Pain , Mild. Next Dose: Acetaminophen (acetaminophen 500 mg oral capsule) 2 capsule By Mouth Every 8 hours; as needed for fever. Next Dose: aflibercept ophthalmic (Eylea 40 mg/mL intraocular solution) 2 Milligram. Next Dose: Albuterol (ProAir HFA 90 mcg/inh inhalation aerosol with adapter) 2 puff(s) Inhalation every 4 hours as needed for wheezing. Next Dose: apixaban (Eliquis 5 mg oral tablet) 1 tab(s) Oral twice a day. Refills: 5. Next Dose: Aspirin (aspirin 325 mg oral capsule) 1 capsule Oral Daily. Next Dose: Calcium And Vitamin D Combination (Calcium 500+D) 1 tab(s) twice a day. Next Dose: Celecoxib (CeleBREX 200 mg oral capsule) 1 capsule Oral twice a day. Next Dose: Cyanocobalamin (cyanocobalamin 1000 mcg/ml injectable solution) 1 mL Intramuscular twice a month. Next Dose: denosumab (Prolia) 60 Milligram Subcutaneous Infusion Every 6 months. Next Dose: Flax (Flax Seed Oil) Next Dose: Flecainide (flecainide 50 mg oral tablet) 1 tab(s) Oral every 12 hours. Refills: 3. Next Dose: Fluticasone Nasal (Flonase 50 mcg/inh nasal spray) 1 spray(s) Nares, Both Daily in the morning. Next Dose: Hydromorphone (Dilaudid 2 mg oral tablet) 1 tablet By Mouth Every 4-6 hours; as needed as needed for pain. Next Dose: Lansoprazole (lansoprazole 30 mg oral enteric coated capsule) 1 capsule Oral Daily. Next Dose: Metoprolol (Toprol XL 25 mg oral tablet, extended release) 0.5 tab(s) Oral Daily. Refills: 3. Next Dose: Montelukast (Singulair 10 mg oral tablet) 1 tab(s) Oral Daily. Next Dose: Pt.'s Own Meds probiotic 1 tab Oral Daily. Next Dose: Allergy Info:?? Egg Allergy; Other Food Allergy; Wheat; Nuts; Mold; Vicodin; Percodan; Percocet; codeine Medications Given This Visit Future Orders ?No future orders Vital Signs Height 157 cm Weight 80.8 kg BMI 32.78 kg/m2 Blood Pressure 128 mm Hg/53 mm Hg Temperature Pulse Rate 64 bpm Respiratory Rate 02 Sat Mode of Delivery 100 %/ You can now view a summary of your hospital visit from the comfort of your home through a free online portal called [employer]. [employer] is a website that allows you to securely view your medical information including discharge summary, medications and follow-up visits. ??You can alsosend a secure electronic message to your doctor???s office to request appointments, renew medications or just ask a question. You can enroll at [email or web address] or register during your next office visit. Disclaimer:?? The information provided is of a general nature and is intended to be used in conjunction with the recommendations and advice of your health care practitioner. ??Every effort has been made to ensure that the information provided is accurate and complete at the time it is provided to you however, as your needs change, or, as new ??information becomes available, different or additional instructions may be required. If you have questions, please consult with your primary care provider or pharmacist, as appropriate. ??This information is not intended to serve as substitution for assessment and evaluation by a qualified health care provider. If you do not have a primary care provider, you may find a [facility] provider by calling [facility] DNS:Net Link at [phone]. [facility], in keeping with [facility] guidance, no longer requires face masks for staff, patientsor visitors in most situations. Similar to time spent indoors at other locations, there is the chance that you were exposed to respiratory viruses during your time with us (such as flu or COVID-19).? If you develop symptoms concerning for a viral respiratory infection, please seek testing (and treatment if indicated) from your medical provider or home test kit. For information about the plan of care including goals and instructions for your diagnosis, please see the patient education orders section of this document. Patient Education Materials?? The content of this educational material or handout may have been modified, supplemented, or adapted from its original content and format to support your individualized medical care. Patient Care team information Care Team Personnel Name: Tracy Martinez RN Position: S RN Member Role: Primary Care Nurse Name: Louis Shirley Position: Reference Physician Member Role: PCP Address: Address: [address] [place] [address]- Care Team Related Persons Name: TY NORTH Address: home [address] [place] [address] Name: VANESSA PATEL Address: home [address] [place] [id number]
--- OUTSIDE RECORDS SUMMARY | 2024-01-26 07:33 | XMS_ITS | Continuity of Care Document ---
Author Organization [facility] Address [address] [address]- Care Team Providers Care Employment Supervisor Name Role Phone Nataliia Hinojosa MD Primary Care Physician [phone] En[place] [facility] [place] [id number] Date(s): 08/22/20 - 09/21/20 [facility] [address] [address]- [place] Allergies, Adverse Reactions, Alerts Substance Reaction [...] AM, 0 Refills, Maintenance, 04/22/19 10:45:51 EDT, [place] Start Date: 04/22/19 Status: Ordered lansoprazole 30 [...]
--- OUTSIDE RECORDS SUMMARY | 2024-01-26 07:33 | XMS_ITS | Continuity of Care Document ---
Author Organization [facility] Address [address] [address]- Care Team Providers Care Carbon Plant Grinder Name Role Phone Nataliia Hinojosa MD Primary Care Physician [phone] [place] [facility] [place] 08[place]22 - 09/05/22 [facility] [address] [address]- Attending Physician: Nathaly Sutherland Admitting Physician: Nathaly Sutherland Referring Physician: Nathaly Sutherland Allergies, Adverse Reactions, Alerts Substance Reaction Severity Status codeine N/V Active Percocet itch Active Percodan itching Active Mold short of breath,sinus issues Active Egg Allergy abd pain Active Other Food Allergy dairy diarrhea Active Vicodin C/O - vomiting Active Nuts per testing Active Wheat psoriasis Active Immunizations Given and [...] AM, 0 Refills, Maintenance, 04/22/19 10:45:51 EDT, [place] Start Date: 04/22/19 Status: Ordered lansoprazole 30 [...] Safety Implantable Status Assigning Authority Unknown Unknown [id number] Unknown 08/05/23 Unknown Unknown Active Un known Procedure Provider Procedure Date Device Type Site Lengthening Luca Pedro MD 06/02/22 Un known Foot Right Device Identifier Serial Number Lot or Batch Number Manufacturing Date Expiration Date Distinct Identification Code MRI Safety Implantable Status Assigning Authority Unknown [id number] Unknown 10/11/23 Unknown Unknown Active Unknown Patient Care team information Care Team Personnel Name: Tracy Martinez RN Position: [facility] RN Member Role: Primary Care Nurse Name: Nataliia Hinojosa MD Position: [facility] Physician (General Medicine) Member Role: PCP Address: Address: [address] [place], [place] [address] Name: Maria Guadalupe Castellon RN Position: [facility] RN Supv Member Role: Primary Care Nurse Care Team Related Persons Name: TY NORTH Address: [address] [place] [address] Name: VANESSA PATEL Address: home [address] [place] [address]
--- OUTSIDE RECORDS SUMMARY | 2024-01-26 07:33 | XMS_ITS | Continuity of Care Document ---
Author Organization [facility] Address [address] [address]- Care Team Providers Care Sand Digger Name Role Phone Nataliia Hinojosa MD Primary Care Physician [facility] [id number] Date(s): 02/13/21 - 02/20/21 [facility] [address] [address]- Attending Physician: Glenroy Mcghee MD Admitting Physician: Glenroy Mcghee MD Referring Physician: Glenroy Mcghee MD Allergies, Adverse Reactions, Alerts Substance Reaction Severity Status codeine N/V Active Percocet itch Active Vicodin C/O - vomiting Active Nuts [...] AM, 0 Refills, Maintenance, 04/22/19 10:45:51 EDT, [place] Start Date: 04/22/19 Status: Ordered lansoprazole 30 [...]
--- OUTSIDE RECORDS SUMMARY | 2024-01-26 07:33 | XMS_ITS | Continuity of Care Document ---
Author Organization [facility] Address [address] [address]- Care Team Providers Care Personnel Associate Name Role Phone Nataliia Hinojosa MD Primary Care Physician [phone] [id number] Date(s): 07/03/21 - 07/10/21 [facility] [address] [address]- Attending Physician: Weston Byrd MD Admitting Physician: Weston Byrd MD Referring Physician: Weston Byrd MD Allergies, Adverse Reactions, Alerts Substance Reaction Severity Status codeine N/V Active Percocet itch Active Vicodin C/O - vomiting Active Mold short of breath,sinus issues Active Nuts per testing Active Wheat psoriasis Active Egg Allergy abd pain Active Other Food Allergy dairy diarrhea Active Percodan itching Active Immunizations Given and Recorded Vaccine Date [...] AM, 0 Refills, Maintenance, 04/22/19 10:45:51 EDT, [place] Start Date: 04/22/19 Status: Ordered lansoprazole 30 [...]
--- OUTSIDE RECORDS SUMMARY | 2024-01-26 07:33 | XMS_ITS | Continuity of Care Document ---
Author Organization [facility] Address [address] [address]- Care Team Providers Care Command And Control Officer Name Role Phone Nataliia Hinojosa MD Primary Care Physician [phone] [place] [facility] [place] 11/02/20 - 12/02/20 [facility] [address] [address]- Attending Physician: Luzmaria Michael Admitting Physician: Admtr, Ar8 Referring Physician: Admtr, Ar8 Allergies, Adverse Reactions, Alerts Substance Reaction Severity Status codeine N/V Active Percocet itch Active Mold short of breath,sinus issues Active Egg Allergy abd pain Active Percodan itching Active Vicodin C/O - vomiting Active Nuts per testing Active Wheat psoriasis Active Other Food Allergy dairy diarrhea Active Immunizations Given and Recorded Vaccine Date Status Refusal Reason SARS-CoV-2 (COVID-19) [id number] vaccine 11/05/20 [facility] Medications Acetaminophen = [...] AM, 0 Refills, Maintenance, 04/22/19 10:45:51 EDT, [place] Start Date: 04/22/19 Status: Ordered lansoprazole 30 [...]
--- OUTSIDE RECORDS SUMMARY | 2024-01-26 07:33 | XMS_ITS | Continuity of Care Document ---
Author Organization [facility] Address [address] [address]- Care Team Providers Care Search Engine Marketing Specialist Name Role Phone Nataliia Hinojosa MD Primary Care Physician [place] [facility] [place] [id number] Date(s): 11/08/21 - 11/15/21 [facility] [address] [address]- Attending Physician: Nathaly Sutherland Admitting Physician: Nathaly Sutherland Referring Physician: Nathaly Sutherland Allergies, Adverse Reactions, Alerts Substance Reaction Severity Status codeine N/V Active Percocet itch Active Nuts per testing Active Wheat psoriasis Active Other Food Allergy dairy diarrhea Active Egg Allergy abd pain Active Percodan itching Active Vicodin C/O - vomiting Active Mold short of breath,sinus issues Active Immunizations Given and Recorded Vaccine Date [...] AM, 0 Refills, Maintenance, 04/22/19 10:45:51 EDT, [place] Start Date: 04/22/19 Status: Ordered lansoprazole 30 [...]
--- OUTSIDE RECORDS SUMMARY | 2024-01-26 07:33 | XMS_ITS | Continuity of Care Document ---
Author Organization [facility] Address [address] [address]- Care Team Providers Care Survey Research Associate Name Role Phone Nataliia Hinojosa MD Primary Care Physician [phone] [place] [facility] [place] [id number] Date(s): 03/26/21 - 04/25/21 [facility] [address] [address]- [place] Allergies, Adverse Reactions, Alerts Substance Reaction [...] AM, 0 Refills, Maintenance, 04/22/19 10:45:51 EDT, [place] Start Date: 04/22/19 Status: Ordered lansoprazole 30 [...]
--- OUTSIDE RECORDS SUMMARY | 2024-01-26 07:33 | XMS_ITS | Continuity of Care Document ---
Author Organization [facility] Address [address] [address]- Care Team Providers Care Bookstore Manager Name Role Phone Louis Shirley Primary Care Physician En[place] [facility] [place] Date(s): 09/02/23 - 09/09/23 [facility] [address] [address]- Attending Physician: Nathaly Sutherland Admitting Physician: Nathaly [...] 5 Refills, Maintenance, 08/18/23 13:57:00 EST, Tablet, [id number], Partial fill upon patient request if the [...] AM, 0 Refills, Maintenance, 04/22/19 10:45:51 EDT, [place] Start Date: 04/22/19 Status: Ordered lansoprazole 30 [...] Safety Implantable Status Assigning Authority Unknown Unknown [id number] Unknown 08/05/23 Unknown Unknown Active Un known Procedure Provider Procedure Date Device Type Site Lengthening Gastrocnemius Luca Acosta MD R 06/02/22 Un known Foot Right Device Identifier Serial Number Lot or Batch Number Manufacturing Date Expiration Date Distinct Identification Code MRI Safety Implantable Status Assigning Authority Unknown [id number] Unknown 10/11/23 Unknown Unknown Active Unknown Patient Care team information Care Team Personnel Name: Tracy Martinez RN Position: S RN Member Role: Primary Care Nurse Name: Louis Shirley Position: Reference Physician Member Role: PCP Address: Address: [address] [place] [address]- Care Team Related Persons Name: TY NORTH Address: home [address] [place] [address] Name: VANESSA PATEL Address: home [address] [place] [address]
--- OUTSIDE RECORDS SUMMARY | 2024-01-26 07:33 | XMS_ITS | Continuity of Care Document ---
Author Organization [facility] Address [address] [address]- Care Team Providers Care Concrete Spreader Name Role Phone Louis Shirley Primary Care Physician [phone] [place] [facility] [place] [id number] Date(s): 05/29/23 - 06/05/23 [facility] [address] [address]- Attending Physician: Nathaly Sutherland Admitting Physician: Nathaly Sutherland Referring Physician: Nathaly Sutherland Allergies, Adverse Reactions, Alerts Substance Reaction Severity Status codeine N/V Active Percocet itch Active Percodan itching Active Wheat psoriasis Active Other Food Allergy dairy diarrhea Active Egg Allergy abd pain Active Vicodin C/O - vomiting Active Mold short of breath,sinus issues Active Nuts per testing Active Immunizations Given [...] Intramuscular twice a month, 0 Refills, Maintenance, 12/12/17 9:38:22, [place] Start Date: 08/25/17 Status: Ordered [...] AM, 0 Refills, Maintenance, 04/22/19 10:45:51 EDT, [place] Start Date: 04/22/19 Status: Ordered lansoprazole 30 [...] Safety Implantable Status Assigning Authority Unknown Unknown [id number] Unknown 08/05/23 Unknown Unknown Active Un known Procedure Provider Procedure Date Device Type Site Lengthening Gastrocnemius Luca Acosta MD 06/02/22 Un known Foot Right Device Identifier Serial Number Lot or Batch Number Manufacturing Date Expiration Date Distinct Identification Code MRI Safety Implantable Status Assigning Authority Unknown [id number] Unknown 10/11/23 Unknown Unknown Active Unknown Patient Care team information Care Team Personnel Name: Tracy Martinez RN Position: S RN Member Role: Primary Care Nurse Name: Louis Shirley Position: Reference Physician Member Role: PCP Address: Address: [address] [place], [place] [address] Care Team Related Persons Name: TY NORTH Address: home [address] [place] [address] Name: VANESSA PATEL Address: home [address] [place] [address]
--- OUTSIDE RECORDS SUMMARY | 2024-01-26 07:33 | XMS_ITS | Continuity of Care Document ---
Author Organization [facility] Address [address] [address]- Care Team Providers Care Trawl Net Maker Name Role Phone Nataliia Hinojosa MD Primary Care Physician [phone] [place] [facility] [id number] Date(s): 08/24/20 - 09/23/20 [facility] [address] [address]- Attending Physician: Luzmaria Michael Admitting Physician: AdmtrLuzmaria Referring Physician: Admtr, Ar8 [...] AM, 0 Refills, Maintenance, 04/22/19 10:45:51 EDT, [place] Start Date: 04/22/19 Status: Ordered lansoprazole 30 [...]
--- OUTSIDE RECORDS SUMMARY | 2024-01-26 07:33 | XMS_ITS | Continuity of Care Document ---
Author Organization [facility] Address [address] [address]- Care Team Providers Care Braider Operator Name Role Phone Nataliia Hinojosa MD Primary Care Physician [phone] [id number] Date(s): 09/24/22 - 10/01/22 [facility] [address] [address]- Attending Physician: Weston Calix MD Admitting Physician: Weston Calix MD Referring Physician: Nataliia Hinojosa MD Allergies, Adverse Reactions, Alerts Substance Reaction Severity Status codeine N/V Active Percocet itch Active Mold short of breath,sinus issues Active Nuts per testing Active Other Food Allergy dairy diarrhea Active Egg Allergy abd pain Active Percodan itching Active Vicodin C/O - vomiting Active Wheat psoriasis Active Immunizations Given and [...] AM, 0 Refills, Maintenance, 04/22/19 10:45:51 EDT, [place] Start Date: 04/22/19 Status: Ordered lansoprazole 30 [...] recent to oldest [Reference Range]: 1 Height 158 cm (09/24/22 10:06 AM) Weight 77.7 kg (09/24/22 10:06 AM) Oxygen Saturation [94-100 %] 99 % (09/24/22 10:06 AM) Pulse Rate [55-90 bpm] 58 bpm (09/24/22 10:06 AM) Body Mass Index [18.5-24.99 kg/m2] 31.12 kg/m2 *>HHI* (09/24/22 10:06 AM) Blood Pressure [90-138/55-84 mm Hg] 140/ 52mm Hg *H* (09/24/22 10:06 AM) Blood pressure sites Arm, left (09/24/22 10:06 AM) Weight Obtained Via Standing scale (09/24/22 10:06 AM) Social History Social History Type Response [...] Safety Implantable Status Assigning Authority Unknown Unknown [id number] Unknown 08/05/23 Unknown Unknown Active Un known Procedure Provider Procedure Date Device Type Site Lengthening Gastrocnemius Luca Acosta MD 06/02/22 Un known Foot Right Device Identifier Serial Number Lot or Batch Number Manufacturing Date Expiration Date Distinct Identification Code MRI Safety Implantable Status Assigning Authority Unknown [id number] Unknown 10/11/23 Unknown Unknown Active Unknown EKG study * Event Display: ECG 12-Lead Authored Date: Please click on pdf link to open report * Event Display: ECG 12-Lead Authored Date: Ventricular Rate: 58 BPM Atrial Rate: 58 BPM P-R Interval: 156 ms QRS Duration: 92 ms Q-T Interval: 422 ms QTC Calculation(Bazett): 414 ms P [place]: 68 degrees R [place]: 54 degrees T [place]: 25 degrees Sinus bradycardia Incomplete right bundle branch block Septal infarct , age undetermined Abnormal ECG Confirmed by WESTON CALIX ([id number]) on 09/28/2022 9:41:30 PM [place]: WESTON CALIX Cardiology Outpatient Note * Weston Calix MD M: PERFORM Event Display: Cardiology Note Office Authored Date: Patient: ??STEFANIE THOMAS ? Age:??67 Years?Sex:??Female?:??1955?? Indication for Consult Paroxysmal atrial fibrillation and paroxysmal SVT History of Present Illness/ Interval History I had the pleasure of seeing Mrs. Stefanie Thomas in the cardiac arrhythmia clinic at [facility]. ??She is a very delightful 67-year-old lady with long-standing history of PVCs and PACs per her account previously followed by a microbiological lab technician in [facility] and had placed her on disopyramide extended release for many years nonetheless when she had trouble obtaining the medication after it was discontinued, the patient was thereafter transitioned to flecainide. ??Most recently, the patient was evaluated for increasing shortness of breath with minimal exertion. ??She had a stress echocardiogram which was performed which was significant for anterior wall motion abnormalities with exercise thereafter the patient was admitted ??08/2017 for an elective left heart catheterizationwhich was unremarkable for any obstructive coronary artery disease with a left ventricular end-diastolic pressure of 0. ??The patient was subsequently discharged home and presents today for follow-up. An echocardiogram performed showed a preserved left ventricular ejection fraction without any structural abnormalities, ejection fraction is 65%, no LVH, normal left atrial size without any significant valvular abnormalities.? I have been following up with them mostly in regards to PACs and PVCs, nonetheless lately she has had 2 episodes of palpitations which were very severe one occurring in [place] and one occurring right before the COVID-19 pandemic. ??Both episodes were sudden onset and she describes severe palpitations with heart rates up to 160 bpm with a sensation of jaw and chest tightness. ??Both episodes lasted 30 to 40 minutes and after the episode she felt exhausted and wiped out. ??Unfortunately none of these episodes were captured on a monitor. ??She remains on flecainide 50 mg twice daily. ??Of note, she recently had thyroid surgery within the past year or so. ??The patient had a implantable loop recorder thereafter placed in July 2020. ?? In June 2021, the patient had an influenza-like illness??and had an episode of atrial fibrillation that is well documented on the implantable loop recorder.?Patient had??another episode July 2022??which lasted an hour and a half in duration and was very consistent with an SVT.?? The episode before that??in June 2021 after I reviewed it closely??was also consistent with SVT.?? Nonetheless she does have 1 episode of atrial fibrillation as documented on??the implantable loop recorder. Review of Systems ?Constitutional, Eye, Skin, Head/Neck, ENMT, Respiratory, Cardio, Gastrointestinal, Endocrine, Muscoloskeletal, Neurologic, Psych reviewed and negative except as noted in HPI.?? Physical Exam Vitals & Measurements CT:??58?? BP:??140/52?? SpO2:??99%?? HT:??158??cm?? WT:??77.7??kg?? BMI:??31.12?General not in acute distress ?HEENT: PERRLA ?Neck: No JVD, No thyromegaly ?Lungs: clear to auscultation bilaterally ?Cardiovascular: regular rate and rhythm, normal s1 and s2 no murmurs ?Abdomen: soft, nontender, positive bowel sounds ?Extremities: no edema ?Skin: No rash ?Neuro: grossly normal ?? Interrogation of implantable loop recorder??shows 2 episodes of paroxysmal SVT??1 year apart. Assessment/Plan Symptomatic paroxysmal SVT One??episode of atrial fibrillation Tachycardia Ordered: ECG 12 Lead ?? After reviewing??her implantable loop monitor,??it is very consistent with paroxysmal SVT.?? I probably favor??an EP study +/- a catheter ablation procedure in this patient. ??I had a very long discussion with the patient and her about the pathophysiology of??SVT??and the ablation procedure, the overall benefits and risks of the procedure which include but not limited to groin complications, tamponade requiring pericardiocentesis,??and complete heart block requiring pacemaker placement.?? Patient understands??and is willing to proceed. ?? After the ablation procedure, we can discontinue flecainide and metoprolol??and continue to observethe patient on the implantable monitor??for any residual episodes of atrial fibrillation.?? Her atrial fibrillation could be truly??precipitated by episodes of SVT.?? I do not feel the need for therapeutic oral anticoagulation for the time being. ?? Patient would want the procedure to be scheduled in December??after her trip to [place]. ?? Weston Calix MD Allergies Egg Allergy??(abd pain) Mold??(short of breath,sinus issues) Nuts??(per testing) Other Food Allergy??(dairy diarrhea) Percocet??(itch) Percodan??(itching) Vicodin??(C/O - vomiting) Wheat??(psoriasis) codeine??(N/V) Home Medications Acetaminophen: 1,000 mg, By Mouth, Daily, PRN (Pain , Mild) aflibercept ophthalmic: See Instructions, every 8 weeks,left eye, part of a study aflibercept ophthalmic: 2 mg Albuterol: 2 puffs, Inhalation, Every 4 hours, PRN (for wheezing) Calcium And Vitamin D Combination: 1 tablet, 2 times a day Celecoxib: 200 mg = 1 capsule, By Mouth, 2 times a day Cyanocobalamin: See Instructions, 1 mL Intramuscular twice a month denosumab: 60 mg, Subcutaneous Infusion, Every 6 months Flax Flecainide: 50 mg = 1 tablet, By Mouth, Every 12 hours Fluticasone Nasal: 1 sprays, Nares, Both, Daily in AM Lansoprazole: 30 mg = 1 capsule, By Mouth, Daily Metoprolol: 12.5 mg = 0.5 tablet, By Mouth, Daily Montelukast: 10 mg = 1 tablet, By Mouth, Daily Pt.'s Own Meds: probiotic 1 tab, By Mouth, Daily Lab Results Cardiology Labs WBC: 10.4 k/mm3 (05/21/22) RBC: 4.78 m/mm3 (05/21/22) Hgb: 13.3 Gm/dL (05/21/22) Hct: 41.7 % (05/21/22) MCV: 87.2 femtoliters (05/21/22) MCH: 27.8 pg (05/21/22) MCHC:??31.9 g/dL??Low (05/21/22) Platelet Count: 280 k/mm3 (05/21/22) RDW-SD: 45.6 femtoliters (05/21/22) Nucleated RBC (Automated): 0 #/100 WBC'S (05/21/22) Sodium: 140 mmol/L (05/21/22) Potassium: 4.6 mmol/L (05/21/22) Chloride: 100 mmol/L (05/21/22) Bicarbonate Level:??31 mmol/L??High (05/21/22) Glucose Level: 89 mg/dL (05/21/22) BUN: 19 mg/dL (05/21/22) Creatinine-Blood: 0.7 mg/dL (05/21/22) Calcium: 9.8 mg/dL (05/21/22) Diagnostic Impression ECG ECG 12-Lead ?? 13:45:09 Please click on pdf link to open report ?? Signed By: Kody Foster MD Stress Test NM Myocard Perf SPECT Single ?? 07/10/21 12:34:01 Summary Normal. No evidence of stress induced ischemia or prior myocardial infarction. Normal left ventricular ejection fraction, no wall motion abnormalities, normal chamber size. Low likelihood of hemodynamically significant coronary artery disease. There were no previous studies available for comparison. ?? Signatures ?? Signed By: Glenroy Mcghee MD Problem List/Past Medical History Ongoing Arthritis Asthma Atrial fibrillation B12 deficiency anemia GERD (gastroesophageal reflux disease) Obese class I Historical No qualifying data Procedure/Surgical History Right thyroid lobectomy: 04/25/19 Follow-Up Appointments Added Follow Up ?Time Frame ?Comments Weston Calix?3 Weeks?FUV after procedure Social History Alcohol Use: occasionally., 05/21/2022 Substance Abuse Use: Never., 05/21/2022 Tobacco Use: Former smoker, quit more than 30 days ago. Other: Quit in 2008., 05/21/2022 Family History Mother: Diabetes mellitus type 2 Father: Cardiovascular disease Sister: Cancer; Cardiovascular disease Brother: Cancer; Cardiovascular disease Note * Amaya Louie: PERFORM, SIGN, VERIFY Event Display: Patient Education/Instruction Authored Date: [id number] [facility] *[facility] Hrt Vas Off Clinical Summary Name STEFANIE THOMAS Age 67 Years 1955 PCP Nataliia Hinojosa MD PCP Visit Date 09/24/2022 09:44:00 Additional Instructions: Scheduled Appointments?? Future Appointments ?[facility]??Hrt??Vas??Diag ?Phone:??--?Fax:??-- ?Appt. Date:??10/01/2022?3:10 PM ?Scheduled Provider:??[facility] [place] Follow-Up Instructions ?? With: Address: When: Weston Calix In 3 months 12/23/2022 Comments: FUV after procedure Diagnosis Tachycardia, unspecified Medications: Please continue your medications until treatment is completed or stopped by your provider. Discuss any questions related to medications with your provider. Medications to Continue with No Changes These medications were not printed or sent to your pharmacy Acetaminophen 1,000 Milligram Oral Daily as needed Pain , Mild. Next Dose: aflibercept ophthalmic (Eylea 40 mg/mL intraocular solution) 2 Milligram. Next Dose: aflibercept ophthalmic (Eylea) every 8 weeks,left eye, part of a study. Next Dose: Albuterol (ProAir HFA 90 mcg/inh inhalation aerosol with adapter) 2 puff(s) Inhalation every 4 hours as needed for wheezing. Next Dose: Calcium And Vitamin D Combination [...] Both Daily in the morning. Next Dose: Lansoprazole (lansoprazole 30 mg oral enteric coated capsule) 1 capsule Oral Daily. Next Dose: Metoprolol (Toprol XL 25 mg oral tablet, extended release) 0.5 tab(s) Oral Daily. Refills: 3. Next Dose: Montelukast (Singulair 10 mg oral tablet) 1 tab(s) Oral Daily. Next Dose: Pt.'s Own Meds probiotic 1 tab Oral Daily. Next Dose: No Longer Take the Following Medications Beclomethasone (Qvar 40 mcg/inh inhalation aerosol) Inhalation twice a day. Multivitamin With Minerals (PreserVision AREDS 2 oral capsule) 1 capsule Oral Daily. Allergy Info:?? Egg Allergy; Other Food Allergy; Wheat; Nuts; Mold; Vicodin; Percodan; Percocet; codeine Medications Given This Visit Future Orders ?No future orders Vital Signs Height 158 cm Weight 77.7 kg BMI 31.12 kg/m2 Blood Pressure 140 mm Hg/52 mm Hg Temperature Pulse Rate 58 bpm Respiratory Rate 02 Sat Mode of Delivery 99 %/ You can now view a summary of your hospital visit from the comfort of your home through a free online portal called [employer]. [employer] is a website that allows you to securely view your medical information including discharge summary, medications and follow-up visits. ??You can alsosend a secure electronic message to your doctor???s office to request appointments, renew medications or just ask a question. You can enroll at [email or web address] or register during your next office visit. [...] primary care provider, you may find a [facility] provider by calling [facility] at [phone]. For information about the plan of care [...] Care Nurse Name: Nataliia Hinojosa MD Position: [facility] Physician (General Medicine) Member Role: PCP Address: Address: [address] [place], [place] [address] Name: Maria Guadalupe Castellon RN Position: S RN Supv Member Role: Primary Care Nurse Care Team Related Persons Name: TY NORTH Address: home [address] [place] [address] Name: VANESSA THOMAS Address: home [address] [place] [address]
--- OUTSIDE RECORDS SUMMARY | 2024-01-26 07:33 | XMS_ITS | Continuity of Care Document ---
Author Organization [facility] Address [address] [address]- Care Team Providers Care Tourist Home Keeper Name Role Phone Louis Shirley Primary Care Physician [place] [facility] [id number] Date(s): 07/31/23 - 08/07/23 [facility] [address] [address]- Attending Physician: Nathaly Sutherland Admitting Physician: Nathaly [...] opioid drug. Start Date: 07/10/23 Status: Ordered Eylea 40 mg/mL intraocular solution [...] AM, 0 Refills, Maintenance, 04/22/19 10:45:51 EDT, [place] Start Date: 04/22/19 Status: Ordered lansoprazole 30 [...] Safety Implantable Status Assigning Authority Unknown Unknown [id number] Unknown 08/05/23 Unknown Unknown Active Un known Procedure Provider Procedure Date Device Type Site Lengthening Gastrocnemius Luca Acosta MD 06/02/22 Un known Foot Right Device Identifier Serial Number Lot or Batch Number Manufacturing Date Expiration Date Distinct Identification Code MRI Safety Implantable Status Assigning Authority Unknown [id number] Unknown 10/11/23 Unknown Unknown Active Unknown Patient Care team information Care Team Personnel Name: Tracy Martinez RN Position: S RN Member Role: Primary Care Nurse Name: Louis Shirley Position: Reference Physician Member Role: PCP Address: Address: [address] [place] [address] [address] [place], [place] [address] Care Team Related Persons Name: TY NORTH Address: home [address] [place] [address] Name: VANESSA PATEL Address: home [address] [place] [address]
--- OUTSIDE RECORDS SUMMARY | 2024-01-26 07:33 | XMS_ITS | Continuity of Care Document ---
Author Organization [facility] Address [address] [address]- Care Team Providers Care Road Oiling Truck Driver Name Role Phone Nataliia Hinojosa MD Primary Care Physician Encounter [facility] Date(s): 06/27/22 - 07/04/22 [facility] [address] [address]- Attending Physician: Nathaly Sutherland Admitting Physician: Nathaly Sutherland Referring Physician: Nathaly Sutherland Allergies, Adverse Reactions, Alerts Substance Reaction Severity Status codeine N/V Active Percocet itch Active Mold short of breath,sinus issues Active Nuts per testing Active Wheat psoriasis Active Egg Allergy abd pain Active Percodan itching Active Vicodin C/O - vomiting Active Other Food Allergy dairy diarrhea Active [...] AM, 0 Refills, Maintenance, 04/22/19 10:45:51 EDT, [place] Start Date: 04/22/19 Status: Ordered lansoprazole 30 [...] Safety Implantable Status Assigning Authority Unknown Unknown [id number] Unknown 08/05/23 Unknown Unknown Active Un known Procedure Provider Procedure Date Device Type Site Lengthening Luca Pedro MD 06/02/22 Un known Foot Right Device Identifier Serial Number Lot or Batch Number Manufacturing Date Expiration Date Distinct Identification Code MRI Safety Implantable Status Assigning Authority Unknown [id number] Unknown 10/11/23 Unknown Unknown Active Unknown Patient Care team information Personnel Name: Nataliia Hinojosa MD Address: Address: [facility] [place] [address]
--- OUTSIDE RECORDS SUMMARY | 2024-01-26 07:33 | XMS_ITS | Continuity of Care Document ---
Author Organization [facility] ter Address [address] [place] [address]- Care Team Providers Care Intervention Teacher Name Role Phone Nataliia Hinojosa MD Primary Care Physician [phone] Encounter [facility] [place] [place] [id number] Date(s): 01/16/23 - 03/03/[address] [address] Attending Physician: Weston Byrd MD Admitting Physician: Weston Byrd MD Allergies, Adverse Reactions, [...] AM, 0 Refills, Maintenance, 04/22/19 10:45:51 EDT, [place] Start Date: 04/22/19 Status: Ordered lansoprazole 30 [...] Safety Implantable Status Assigning Authority Unknown Unknown [id number] Unknown 08/05/23 Unknown Unknown Active Un known Procedure Provider Procedure Date Device Type Site Lengthening Gastrocnemius Luca Acosta MD 06/02/22 Un known Foot Right Device Identifier Serial Number Lot or Batch Number Manufacturing Date Expiration Date Distinct Identification Code MRI Safety Implantable Status Assigning Authority Unknown [id number] -1 Unknown 10/11/23 Unknown Unknown Active Unknown Patient Care team information Care Team Personnel Name: Tracy Martinez RN Position: [facility] RN Member Role: Primary Care Nurse Name: Nataliia Hniojosa MD Position: [facility] Physician - Primary Care Member Role: PCP Address: Address: [address] [place], [place] [address] Name: Maria Guadalupe Castellon RN Position: [facility] RN Supv Member Role: Primary Care Nurse Care Team Related Persons Name: TY NORTH Address: home [address] [place] [address] Name: VANESSA PATEL Address: home [address] [place] [address]
--- OUTSIDE RECORDS SUMMARY | 2024-01-26 07:33 | XMS_ITS | Continuity of Care Document ---
Author Organization [facility] ter Address [address] [place] [address]- Care Team Providers Care Director Search Marketing Strategies Name Role Phone Nataliia Hinojosa MD Primary Care Physician [place] [facility] [place] [id number] Date(s): 07/18/20 - 07/18/[address] [address] Discharge Disposition: A-D/C Home Attending Physician: Weston Byrd MD Admitting Physician: Weston Byrd MD Referring Physician: Tiago Lawson Allergies, Adverse Reactions, Alerts Substance Reaction Severity [...] AM, 0 Refills, Maintenance, 04/22/19 10:45:51 EDT, [place] Start Date: 04/22/19 Status: Ordered lansoprazole 30 [...] oldest [Reference Range]: 1 2 3 Height 158 cm (07/18/20 10:50 AM) 154.94 cm (07/18/20 9:20 AM) 158 cm (07/18/20 9:20 AM) Weight 78 kg (07/18/20 9:20 AM) 78 kg (07/18/20 9:20 AM) Oxygen Saturation [94-100 %] 97 % (07/18/20 10:50 AM) 99 % (07/18/20 8:46 AM) Pulse Rate [55-90 bpm] 59 bpm (07/18/20 10:50 AM) 60 bpm (07/18/20 8:46 AM) Blood Pressure [90-138/55-84 mm Hg] 134/61mm Hg (07/18/20 10:50 AM) 118/71mm Hg (07/18/20 8:46 AM) Respiratory Rate [16-30 br/min] 18 br/min (07/18/20 10:50 AM) 18 br/min (07/18/20 8:46 AM) Temperature [96.8-100.4 DegF] 98.5 DegF (07/18/20 8:46 AM) Mode of Delivery (Oxygen) Room air (07/18/20 10:50 AM) Room air (07/18/20 8:46 AM) Blood pressure sites Arm, left (07/18/20 10:50 AM) Arm, right (07/18/20 8:46 AM) Temperature Route Oral (07/18/20 8:46 AM) Dry Weight 78 kg (07/18/20 9:20 AM) 78 kg (07/18/20 9:20 AM) Social History Social History Type Response Smoking Status Former smoker, quit more than 30 days ago entered on: 04/14/19 Sex
--- OUTSIDE RECORDS SUMMARY | 2024-01-26 07:33 | XMS_ITS | Continuity of Care Document ---
Author Organization [facility] Address [address] [place] [address]- Care Team Providers Care Dough Mixer Operator Name Role Phone Louis Shirley Primary Care Physician [phone] [place] [facility] [place] [id number] Date(s): 07/09/23 - 07/16/23 [facility] [address] [place] [address] Attending Physician: Not on Staff, Attending MD Allergies, Adverse Reactions, Alerts Substance Reaction Severity Status codeine N/V Active Percocet itch Active Mold short of breath,sinus issues Active Nuts per testing Active Egg Allergy abd pain Active Percodan itching Active Vicodin C/O - vomiting Active Wheat psoriasis Active Other Food Allergy [...] AM, 0 Refills, Maintenance, 04/22/19 10:45:51 EDT, [place] Start Date: 04/22/19 Status: Ordered lansoprazole 30 [...] Confirmed Active Obese class I Confirmed Active Procedures Procedure Date Related Diagnosis Body Site Status TURBT Completed Vital Signs Most recent to oldest [Reference Range]: 1 Height 155 cm (07/09/23 8:32 AM) Weight 80.4 kg (07/09/23 8:32 AM) Oxygen Saturation [94-100 %] 100 % (07/09/23 8:32 AM) Pulse Rate [55-90 bpm] 61 bpm (07/09/23 8:32 AM) Body Mass Index [18.5-24.99 kg/m2] 33.47 kg/m2 *>HHI* (07/09/23 8:32 AM) Blood Pressure [90-138/55-84 mm Hg] 126/ 66mm Hg (07/09/23 8:32 AM) Respiratory Rate [16-30 br/min] 16 br/mi n (07/09/23 8:32 AM) Mode of Delivery (Oxygen) Room air (07/09/23 8:32 AM) Blood pressure sites Arm, right (07/09/23 8:32 AM) Dry Weight 80.4 kg (07/09/23 8:32 AM) Weight Obtained Via Standing scale (07/09/23 8:32 AM) Dry Weight Obtained Via Standing scale (07/09/23 8:32 AM) Social History Social History Type Response [...] Safety Implantable Status Assigning Authority Unknown Unknown [id number] Unknown 08/05/23 Unknown Unknown Active Un known Procedure Provider Procedure Date Device Type Site Lengthening Gastrocnemius Luca Acosta MD 06/02/22 Un known Foot Right Device Identifier Serial Number Lot or Batch Number Manufacturing Date Expiration Date Distinct Identification Code MRI Safety Implantable Status Assigning Authority Unknown [id number] -1 Unknown 10/11/23 Unknown Unknown Active Unknown Patient Care team information Care Team Personnel Name: Tracy Martinez RN Position: S RN Member Role: Primary Care Nurse Name: Louis Shirley Position: Reference Physician Member Role: PCP Address: Address: [address] [place] [address]- Care Team Related Persons Name: TY NORTH Address: [address] [place] [address] Name: VANESSA PATEL Address: [address] [place] [address]
--- OUTSIDE RECORDS SUMMARY | 2024-01-26 07:34 | XMS_ITS | Continuity of Care Document ---
Author Organization [facility] Address [address] [address]- Care Team Providers Care Landscape Designer Name Role Phone Nataliia Hinojosa MD Primary Care Physician [place] [facility] [place] [id number] Date(s): 09/27/20 - 10/27/20 [facility] [address] [address]- Attending Physician: Luzmaria Michael Admitting Physician: AdmtrLuzmaria [...] AM, 0 Refills, Maintenance, 04/22/19 10:45:51 EDT, [place] Start Date: 04/22/19 Status: Ordered lansoprazole 30 [...]
--- OUTSIDE RECORDS SUMMARY | 2024-01-26 07:34 | XMS_ITS | Continuity of Care Document ---
Author Organization [facility] Address [address] [address]- Care Team Providers Care Organisation And Methods Analyst Name Role Phone Louis Shirley Primary Care Physician [phone] Encounter [facility] Date(s): 10/19/23 - 11/18/23 [facility] [address] [address]- [place] Allergies, Adverse Reactions, Alerts Substance Reaction [...] 5 Refills, Maintenance, 08/18/23 13:57:00 EST, Tablet, [id number], Partial fill upon patient request if the [...] AM, 0 Refills, Maintenance, 04/22/19 10:45:51 EDT, [place] Start Date: 04/22/19 Status: Ordered lansoprazole 30 [...] Procedure Date Device Type Site Lengthening Gastrocnemius Luac Acosta MD 06/02/22 Un known Foot Right Device Identifier Serial Number Lot or Batch Number Manufacturing Date Expiration Date Distinct Identification Code MRI Safety Implantable Status Assigning Authority Unknown Unknown [id number] Unknown 08/05/23 Unknown Unknown Active Un known Procedure Provider Procedure Date Device Type Site Lengthening Gastrocnemius Luca Acosta MD 06/02/22 Un known Foot Right Device Identifier Serial Number Lot or Batch Number Manufacturing Date Expiration Date Distinct Identification Code MRI Safety Implantable Status Assigning Authority Unknown [id number] -1 Unknown 10/11/23 Unknown Unknown Active Unknown Patient Care team information Care Team Personnel Name: Louis Shirley Position: Reference Physician Member Role: PCP Address: Address: [address] [place] [address]- Care Team Related Persons Name: TY NORTH Address: [address] [place] [address] Name: VANESSA PATEL Address: [address] [place] [address]
--- OUTSIDE RECORDS SUMMARY | 2024-01-26 07:34 | XMS_ITS | Continuity of Care Document ---
Author Organization [facility] Address [address] [address]- Care Team Providers Care Iron Guardrail Installer Name Role Phone Nataliia Hinojosa MD Primary Care Physician [phone] [facility] [id number] Date(s): 01/06/23 - 01/13/23 [facility] [address] [address]- Attending Physician: Nathaly Sutherland Admitting Physician: Nathaly [...] AM, 0 Refills, Maintenance, 04/22/19 10:45:51 EDT, [place] Start Date: 04/22/19 Status: Ordered lansoprazole 30 [...] Safety Implantable Status Assigning Authority Unknown Unknown [id number] Unknown 08/05/23 Unknown Unknown Active Un known Procedure Provider Procedure Date Device Type Site Lengthening Gastrocnemius Luca Acosta MD 06/02/22 Un known Foot Right Device Identifier Serial Number Lot or Batch Number Manufacturing Date Expiration Date Distinct Identification Code MRI Safety Implantable Status Assigning Authority Unknown [id number] -1 Unknown 10/11/23 Unknown Unknown Active Unknown Patient Care team information Care Team Personnel Name: Tracy Martinez RN Position: [facility] RN Member Role: Primary Care Nurse Name: Nataliia Hinojosa MD Position: [facility] Physician (General Medicine) Member Role: PCP Address: Address: [address] [place] [id number] Name: Maria Guadalupe Castellon RN Position: [facility] RN Supv Member Role: Primary Care Nurse Care Team Related Persons Name: TY NORTH Address: [address] [place] [address] Name: VANESSA PATEL Address: [address] [place] [address]
--- OUTSIDE RECORDS SUMMARY | 2024-01-26 07:34 | XMS_ITS | Continuity of Care Document ---
Author Organization [facility] Address [address] [address]- Care Team Providers Care Design Assembler Name Role Phone Nataliia Hinojosa MD Primary Care Physician [facility] [id number] Date(s): 12/04/20 - 12/11/20 [facility] [address] [address]- Attending Physician: Glenroy Mcghee MD Admitting Physician: [...] AM, 0 Refills, Maintenance, 04/22/19 10:45:51 EDT, [place] Start Date: 04/22/19 Status: Ordered lansoprazole 30 [...]
--- OUTSIDE RECORDS SUMMARY | 2024-01-26 07:34 | XMS_ITS | Continuity of Care Document ---
Author Organization [facility] Address [address] [address]- Care Team Providers Care Diesel Retrofit Designer Name Role Phone Nataliia Hinojosa MD Primary Care Physician Encounter [facility] Date(s): 05/02/21 - 06/01/21 [facility] [address] [address]- Attending Physician: Admtr, Ar8 Admitting Physician: Admtr, [...] AM, 0 Refills, Maintenance, 04/22/19 10:45:51 EDT, [place] Start Date: 04/22/19 Status: Ordered lansoprazole 30 [...]
--- OUTSIDE RECORDS SUMMARY | 2024-01-26 07:34 | XMS_ITS | Continuity of Care Document ---
Author Organization [facility] Address [address] [address]- Care Team Providers Care Relay Technician Name Role Phone Nataliia Hinojosa MD Primary Care Physician Encounter [facility] AC[facility] R [id number] Date(s): 10/31/20 - 11/07/20 [facility] [address] [address]- Attending Physician: Glenroy Mcghee MD Admitting Physician: [...] Vaccine Date Status Refusal Reason SARS-CoV-2 (COVID-19) mRNA-[id number] vaccine 11/05/20 G iven Medications Acetaminophen = [...] AM, 0 Refills, Maintenance, 04/22/19 10:45:51 EDT, [place] Start Date: 04/22/19 Status: Ordered lansoprazole 30 [...]
--- OUTSIDE RECORDS SUMMARY | 2024-01-26 07:34 | XMS_ITS | Continuity of Care Document ---
Author Organization [facility] Address [address] [address]- Care Team Providers Care Java Tech Name Role Phone Nataliia Hinojosa MD Primary Care Physician Encounter [facility] [id number] Date(s): 02/12/23 - 03/14/23 [facility] [address] [address]- Attending Physician: Luzmaria Michael Admitting Physician: AdmtrLuzmaria [...] AM, 0 Refills, Maintenance, 04/22/19 10:45:51 EDT, [place] Start Date: 04/22/19 Status: Ordered lansoprazole 30 [...] Safety Implantable Status Assigning Authority Unknown Unknown [id number] Unknown 08/05/23 Unknown Unknown Active Un known Procedure Provider Procedure Date Device Type Site Lengthening Gastrocnemius Luca Acosta MD 06/02/22 Un known Foot Right Device Identifier Serial Number Lot or Batch Number Manufacturing Date Expiration Date Distinct Identification Code MRI Safety Implantable Status Assigning Authority Unknown [id number] -1 Unknown 10/11/23 Unknown Unknown Active Unknown Patient Care team information Care Team Personnel Name: Tracy Martinez RN Position: [facility] RN Member Role: Primary Care Nurse Name: Nataliia Hinojosa MD Position: [facility] Physician - Primary Care Member Role: PCP Address: Address: [facility] [place], [place] [address] Name: Maria Guadalupe Castellon RN Position: [facility] RN Supv Member Role: Primary Care Nurse Care Team Related Persons Name: TY NORTH Address: [address] [place] [address] Name: VANESSA PATEL Address: [address] [place] [address]
--- OUTSIDE RECORDS SUMMARY | 2024-01-26 07:34 | XMS_ITS | Continuity of Care Document ---
Author Organization [facility] Address [address] [address]- Care Team Providers Care Milk Receiver Tank Truck Name Role Phone Louis Shirley Primary Care Physician [phone] Encounter [facility] Date(s): 09/11/23 - 10/11/23 [facility] [address] [address]- [place] Allergies, Adverse Reactions, Alerts Substance Reaction [...] 5 Refills, Maintenance, 08/18/23 13:57:00 EST, Tablet, [id number], Partial fill upon patient request if the [...] AM, 0 Refills, Maintenance, 04/22/19 10:45:51 EDT, [place] Start Date: 04/22/19 Status: Ordered lansoprazole 30 [...] Safety Implantable Status Assigning Authority Unknown Unknown [id number] Unknown 08/05/23 Unknown Unknown Active Un known Procedure Provider Procedure Date Device Type Site Lengthening Gastrocnemius Luca Acosta MD 06/02/22 Un known Foot Right Device Identifier Serial Number Lot or Batch Number Manufacturing Date Expiration Date Distinct Identification Code MRI Safety Implantable Status Assigning Authority Unknown [id number] -1 Unknown 10/11/23 Unknown Unknown Active Unknown Patient Care team information Care Team Personnel Name: Louis Shirley Position: Reference Physician Member Role: PCP Address: Address: [address] [place] [address] [place] [address]- Care Team Related Persons Name: TY NORTH Address: [address] [place] [address] Name: VANESSA PTAEL Address: [address] [place] [address]
--- OUTSIDE RECORDS SUMMARY | 2024-01-26 07:34 | XMS_ITS | Continuity of Care Document ---
Author Organization [facility] Address [address] [address]- Care Team Providers Care Aircraft Body Repairer Name Role Phone Louis Shirley Primary Care Physician Encounter [facility] Date(s): 06/29/23 - 07/06/23 [facility] [address] [address]- Attending Physician: Nathaly Sutherland Admitting Physician: Nathaly [...] AM, 0 Refills, Maintenance, 04/22/19 10:45:51 EDT, [place] Start Date: 04/22/19 Status: Ordered lansoprazole 30 [...] Safety Implantable Status Assigning Authority Unknown Unknown [id number] Unknown 08/05/23 Unknown Unknown Active Un known Procedure Provider Procedure Date Device Type Site Lengthening Gastrocnemius Luca Acosta MD 06/02/22 Un known Foot Right Device Identifier Serial Number Lot or Batch Number Manufacturing Date Expiration Date Distinct Identification Code MRI Safety Implantable Status Assigning Authority Unknown [id number] -1 Unknown 10/11/23 Unknown Unknown Active Unknown Patient Care team information Care Team Personnel Name: Tracy Martinez RN Position: S RN Member Role: Primary Care Nurse Name: Louis Shirley Position: Reference Physician Member Role: PCP Address: Address: [address] [place] [address]- Care Team Related Persons Name: TY NORTH Address: [address] [place] [address] Name: VANESSA PATEL Address: home [address] [place] [address]
--- OUTSIDE RECORDS SUMMARY | 2024-01-26 07:34 | XMS_ITS | Continuity of Care Document ---
Author Organization [facility] Address [address] [address]- Care Team Providers Care National Sales Name Role Phone Louis Shirley Primary Care Physician [place] [facility] [place] [id number] Date(s): 08/12/23 - 08/19/23 [facility] [address] [address]- Attending Physician: Weston Calix MD Admitting Physician: Weston Calix MD Referring Physician: Louis Shirley Allergies, Adverse Reactions, Alerts Substance Reaction Severity [...] 5 Refills, Maintenance, 08/18/23 13:57:00 EST, Tablet, [id number], Partial fill upon patient request if the [...] AM, 0 Refills, Maintenance, 04/22/19 10:45:51 EDT, [place] Start Date: 04/22/19 Status: Ordered lansoprazole 30 [...] oldest [Reference Range]: 1 Height 157 cm (08/12/23 2:25 PM) Weight 80.3 kg (08/12/23 2:25 PM) Oxygen Saturation [94-100 %] 97 % (08/12/23 2:25 PM) Pulse Rate [55-90 bpm] 67 bpm (08/12/23 2:25 PM) Body Mass Index [18.5-24.99 kg/m2] 32.58 kg/m2 *>HHI* (08/12/23 2:25 PM) Blood Pressure [90-138/55-84 mm Hg] 124/ 55mm Hg (08/12/23 2:25 PM) Mode of Delivery (Oxygen) Room air (08/12/23 2:25 PM) Blood pressure sites Arm, left (08/12/23 2:25 PM) Weight Obtained Via Standing scale (08/12/23 2:25 PM) Social History Social History Type Response [...] Safety Implantable Status Assigning Authority Unknown Unknown [id number] Unknown 08/05/23 Unknown Unknown Active Un known Procedure Provider Procedure Date Device Type Site Lengthening Gastrocnemius Luca Acosta MD 06/02/22 Un known Foot Right Device Identifier Serial Number Lot or Batch Number Manufacturing Date Expiration Date Distinct Identification Code MRI Safety Implantable Status Assigning Authority Unknown [id number] -1 Unknown 10/11/23 Unknown Unknown Active Unknown EKG study * Event Display: ECG 12-Lead Authored Date: Please click on pdf link to open report * Event Display: ECG 12-Lead Authored Date: Ventricular Rate: 67 BPM Atrial Rate: 67 BPM P-R Interval: 150 ms QRS Duration: 82 ms Q-T Interval: 410 ms QTC Calculation(Bazett): 433 ms P Brightwaters: 46 degrees R Brightwaters: -14 degrees T Brightwaters: -16 degrees Normal sinus rhythm Nonspecific ST and T wave abnormality Abnormal ECG When compared with ECG of 15-JAN-2023 07:22, Nonspecific T wave abnormality now evident in Anterolateral leads Confirmed by WESTON CALIX ([id number]) on 08/13/2023 12:15:55 PM [place]: WESTON CALIX Cardiology Outpatient Note * Weston Calix MD M: PERFORM Event Display: Cardiology Note Office Authored Date: [id number] Patient: ??STEFANIE PATEL ? Age:??68 Years?Sex:??Female?:??1955?? Indication for Consult Paroxysmal SVT and paroxysmal atrial fibrillation History of Present Illness/Interval History I saw Stefanie??in follow-up in the cardiac arrhythmia clinic at [facility].?? She is a 68-year-old lady was known to me from the outpatient setting with??longstanding history of palpitations.?? Patient ultimately had an implantable loop recorder placed??and??had documented??paroxysmal SVT??at 178 bpm.?? Patient's burden of arrhythmia was mostly??supraventricular tachycardia??HR 1 evidence of paroxysmal atrial fibrillation that could have been precipitated by SVT. ?? I saw the patient in September 2022??and we discussed an EP study +/- a catheter ablation procedure, yet she has been struggling with??hematuria??and the procedure was subsequently canceled.?? She presents today in follow- up??after having a severe episode of SVT??last week.?? She continues to haveSVT despite being on flecainide 50 mg p.o. twice daily.?? During the SVT, she reports palpitations,lightheadedness??without any chest pain or shortness of breath.?? Of note, she had a left heart catheterization which was unremarkable. ??Echocardiogram was within normal??biventricular ejection fraction. Review of Systems ?Constitutional, Eye, Skin, Head/Neck, ENMT, Respiratory, Cardio, Gastrointestinal, Endocrine, Muscoloskeletal, Neurologic, Psych reviewed and negative except as noted in HPI.?? Physical Exam Vitals & Measurements HR:??67??(Peripheral)?? BP:??124/55?? SpO2:??97%?? HT:??157??cm?? WT:??80.3??kg?? BMI:??32.58?? Weight lb/oz: 177 lb 0 oz ?General not in acute distress ?HEENT: PERRLA ?Neck: No JVD, No thyromegaly ?Lungs: clear to auscultation bilaterally ?Cardiovascular: regular rate and rhythm, normal s1 and s2 no murmurs ?Abdomen: soft, nontender, positive bowel sounds ?Extremities: no edema ?Skin: No rash ?Neuro: grossly normal ?? EKG shows normal sinus rhythm normal conduction intervals ?? Interrogation of Develop[employer]ellig[employer] ILR??reveals??episodes of SVT??at 170 bpm. Assessment/Plan Paroxysmal SVT PAF (paroxysmal atrial fibrillation) There has had a high burden of SVT despite being on flecainide 50 mg p.o. twice daily.?? We discussed again??EP study +/- catheter ablation procedure, the overall benefits and risks of the procedure which include??and not limited to??groin complications,??tamponade requiring pericardiocentesis,??complete heart block requiring pacemaker placement, stroke and myocardial infarction.?? Patient understands and is willing to proceed.?? Will plan to proceed with EP study +/- catheter ablation procedure with moderate sedation. ?? Weston Calix MD Problem List/Past Medical History Ongoing Arthritis Asthma Atrial fibrillation B12 deficiency anemia GERD (gastroesophageal reflux disease) Obese class I Procedure/Surgical History Right thyroid lobectomy: 04/25/19 [facility] Medications No qualifying data available Lab Results Cardiology Labs WBC: 10.9 k/mm3 (07/16/23) RBC: 4.5 m/mm3 (07/16/23) Hgb: 12.6 Gm/dL (07/16/23) Hct: 39.2 % (07/16/23) MCV: 87.1 femtoliters (07/16/23) MCH: 28 pg (07/16/23) MCHC:??32.1 g/dL??Low (07/16/23) Platelet Count: 333 k/mm3 (07/16/23) RDW-SD: 42 femtoliters (07/16/23) Nucleated RBC (Automated): 0 #/100 WBC'S (07/16/23) Abs. Neut:??7.5 k/mm3??High (07/16/23) Abs. Lymph: 2.6 k/mm3 (07/16/23) Abs. [place]: 0.6 k/mm3 (07/16/23) Abs. Eo: 0.2 k/mm3 (07/16/23) Abs. Baso: 0.1 k/mm3 (07/16/23) Neut %: 68.3 % (07/16/23) [place] %: 5.2 % (07/16/23) Eos %: 1.6 [...] (07/16/23) Diagnostic Impression ECG ECG 12-Lead ?? 13:07:16 Please click on pdf link to open report ?? Signed By: Weston Calix MD ?? ECG 12-Lead ?? 13:07:16 Ventricular Rate: 67 BPM Atrial Rate: 67 BPM P-R Interval: 150 ms QRS Duration: 82 ms Q-T Interval: 410 ms QTC Calculation(Bazett): 433 ms P Brightwaters: 46 degrees R Brightwaters: -14 degrees T Brightwaters: -16 degrees Normal sinus rhythm Nonspecific ST and T wave abnormality Abnormal ECG When compared with ECG of 15-JAN-2023 07:22, Nonspecific T wave abnormality now evident in Anterolateral leads Confirmed by WESTON CALIX ([id number]) on 08/13/2023 12:15:55 PM ?? [place]: WESTON CALIX ?? Signed By: Weston Calix MD Stress Test NM Myocard Perf SPECT [...] VERIFY Event Display: Patient Education/Instruction Authored Date: [id number] [facility] *[facility] Hrt Vas Off Clinical Summary Name STEFANIE PATEL Age 68 Years 1955 PCP Louis Shirley PCP Visit Date 08/12/2023 13:46:00 Additional Instructions: Scheduled Appointments?? Future Appointments ?[facility]??Hrt??Vas??Diag ?Phone:??--?Fax:??-- ?Appt. Date:??09/02/2023?2:20 PM ?Scheduled Provider:??[facility] Home [facility] [place] Follow-Up Instructions ?? Diagnosis Paroxysmal atrial fibrillation Medications: Please continue your medications [...] hours as needed for wheezing. Next Dose: Aspirin (aspirin 325 mg oral [...] orders Vital Signs Height 157 cm Weight 80.3 kg BMI 32.58 kg/m2 Blood Pressure 124 mm Hg/55 mm Hg Temperature Pulse Rate 67 bpm Respiratory Rate 02 Sat Mode of Delivery 97 %/Room air You can now view a summary of your hospital visit from the comfort of your home through a free online portal called [employer]. [employer] is a website that allows you to securely view your medical information including discharge summary, medications and follow-up visits. ??You can alsosend a secure electronic message to your doctor???s office to request appointments, renew medications or just ask a question. You can enroll at [email or web address] or register during your next office [...] primary care provider, you may find a [facility] provider by calling [facility] [employer] Link at [phone]. [facility], in keeping with [facility] guidance, no longer requires face masks [...] Physician Member Role: PCP Address: Address: [address] [place] [address]- Care Team Related Persons Name: TY NORTH Address: [address] [place] [address] Name: VANESSA PATEL Address: [address] [place] [address]
--- OUTSIDE RECORDS SUMMARY | 2024-01-26 07:34 | XMS_ITS | Continuity of Care Document ---
Author Organization [facility] Address [address] [place] [address]- Care Team Providers Care Warehouse Examiner Name Role Phone Nataliia Hinojosa MD Primary Care Physician Encounter [facility] Date(s): 05/21/22 - 06/20/22 [facility] [address] [place] [address]- Attending Physician: AdmLuzmaria mckeon Admitting Physician: Admtr, Ar8 Referring Physician: Admtr, Ar8 Allergies, Adverse Reactions, Alerts Substance Reaction Severity Status codeine N/V Active Percocet itch Active Mold short of breath,sinus issues Active Egg Allergy abd pain Active Other Food Allergy dairy diarrhea Active Percodan itching Active Vicodin C/O - [...] AM, 0 Refills, Maintenance, 04/22/19 10:45:51 EDT, [place] Start Date: 04/22/19 Status: Ordered lansoprazole 30 [...] Safety Implantable Status Assigning Authority Unknown Unknown [id number] Unknown 08/05/23 Unknown Unknown Active Un known Procedure Provider Procedure Date Device Type Site Lengthening Luca Pedro MD 06/02/22 Un known Foot Right Device Identifier Serial Number Lot or Batch Number Manufacturing Date Expiration Date Distinct Identification Code MRI Safety Implantable Status Assigning Authority Unknown [id number] -1 Unknown 10/11/23 Unknown Unknown Active Unknown Patient Care team information Personnel Name: Nataliia Hinojosa MD Address: Address: [address] [facility] [place] [address]
--- OUTSIDE RECORDS SUMMARY | 2024-01-26 07:34 | XMS_ITS | Continuity of Care Document ---
Author Organization [facility] Address [address] [address]- Care Team Providers Care Event Planner Name Role Phone Nataliia Hinojosa MD Primary Care Physician [phone] [facility] [id number] Date(s): 03/13/23 - 03/20/23 [facility] [address] [address]- Attending Physician: Nathaly Sutherland Admitting Physician: Nathaly [...] AM, 0 Refills, Maintenance, 04/22/19 10:45:51 EDT, [place] Start Date: 04/22/19 Status: Ordered lansoprazole 30 [...] Safety Implantable Status Assigning Authority Unknown Unknown [id number] Unknown 08/05/23 Unknown Unknown Active Un known Procedure Provider Procedure Date Device Type Site Lengthening Gastrocnemius Luca Acosta MD 06/02/22 Un known Foot Right Device Identifier Serial Number Lot or Batch Number Manufacturing Date Expiration Date Distinct Identification Code MRI Safety Implantable Status Assigning Authority Unknown [id number] -1 Unknown 10/11/23 Unknown Unknown Active Unknown Patient Care team information Care Team Personnel Name: Tracy Martinez RN Position: [facility] RN Member Role: Primary Care Nurse Name: Nataliia Hinojosa MD Position: S Physician - Primary Care Member Role: PCP Address: Address: [address] [place], [place] [address] Name: Maria Guadalupe Castellon RN Position: [facility] RN Supv Member Role: Primary Care Nurse Care Team Related Persons Name: TY NORTH Address: [address] [place] [address] Name: VANESSA PATEL Address: [address] [place] [address]
--- OUTSIDE RECORDS SUMMARY | 2024-01-26 07:34 | XMS_ITS | Continuity of Care Document ---
Author Organization [facility] ter Address [address] [place] [address]- Care Team Providers Care Underground [employer] Section Foreman Name Role Phone Louis Shirley Primary Care Physician Encounter [facility] ACCT R [id number] Date(s): 07/16/23 - 07/16/[address] [address]- Encounter Diagnosis Abdominal pain(Final) - 07/16/23 Colitis(Final) - 07/16/23 Discharge Disposition: A-D/C Home Attending Physician: Kai Leggett MD Admitting Physician: Kai Leggett MD Referring Physician: Not on Staff, Referring MD Allergies, Adverse Reactions, Alerts Substance Reaction [...] AM, 0 Refills, Maintenance, 04/22/19 10:45:51 EDT, [place] Start Date: 04/22/19 Status: Ordered lansoprazole 30 [...] Confirmed Active Obese class I Confirmed Active Results Radiology Reports * Exam Date Time Procedure Performing Provider Status 07/16/23 1:[address] Abd/Pelvis W/ IV Contrast Only Lyric Devlin; Jeremiah (Verified) Notes: (CT Abd/Pelvis W/ IV Contrast Only) Reason For Exam: LLQ abdominal pain;Other: RESULT: CT Abd/Pelvis W/ IV Contrast Only CT Abd/Pelvis W/ IV Contrast Only Hx of Present Illness: pt had hardware removed from ankle one week ago. pt now with LLQ abdominal pain and diarrhea for 5 days. reports having scans in march that showed diverticulosis incidentally; Reason: Other:; LLQ abdominal pain; Clinical Question(s): Diverticulitis; Order Comment: TECHNIQUE: Spiral CT through the abdomen and pelvis with IV contrast formatted in 3 planes. 100 cc of Omnipaque 300 was administered intravenously. This study was performed without oral contrast. Weight-based protocol using automatic tube modulation was used to optimize exposure parameters. CTDIvol Body: 17.02 mGy, DLP Body: 850 mGy*cm. COMPARISON: None. FINDINGS: Lockstitch Back Maker View Findings, Lines and Tubes: None. Visualized Chest: Lung bases show mild linear atelectasis. Diaphragm: Tiny hiatal hernia. Liver: Diffuse hepatic steatosis with more focal fat at the falciform ligament Gallbladder: Previous cholecystectomy Bile ducts: No biliary ductal dilation. Spleen: Normal. Pancreas: Normal. Adrenal glands: Normal. Kidneys and ureters: No hydronephrosis, stones, or suspicious masses. Simple appearing renal cysts and hypodensities that are too small to characterize are noted, requiring no dedicated follow up. Bladder: Nondistended urinary bladder. Mild bladder wall thickening and perivesicular stranding Reproductive organs: Unremarkable. Stomach, small bowel, and large bowel: Stomach and small bowel loops are nondistended. Tiny hiatal hernia. Colonic diverticulosis. No evidence for acute diverticulitis. Borderline wall thickening appearance of the left colon at series 302 image 83 with minimal adjacent fat stranding. Appendix: No evidence for appendicitis Peritoneum and retroperitoneum: No ascites or pneumoperitoneum. No omental or mesenteric lesions. Lymph nodes: No enlarged lymph nodes. Blood vessels: Nonaneurysmal abdominal aorta. Mild eccentric aortoiliac atherosclerosis. No evidence of venous thrombosis. Abdominal and pelvic wall: No acute abnormality. Bones: No acute or destructive osseous abnormality. Minimal degenerative changes at the lower lumbar spine with grade 1 anterolisthesis of L4 on L5. IMPRESSION: Mild segmental wall thickening seen of the left colon with minimal regional stranding. This can be seen with uncomplicated colitis. There is colonic diverticula without focal peridiverticular inflammation to indicate diverticulitis. There is also minimal perivesicular stranding. Recommend correlation with urinalysis to evaluate for cystitis. WSN: [id number] Ordering Physician: Kai Leggett Dictated By: Dennise Dangelo MD Dictated Date/Time: 07/16/23 1:41 pm Reviewed By: Dennise Dangelo MD Signed By: Dennise Dangelo MD Signed Date/Time: 07/16/23 1:41 pm Transcribed By: IBETH Transcribed Date/Time: 07/16/23 1:24 pm Vital Signs Most recent to oldest [Reference Range]: 1 Height 157 cm (07/16/23 9:11 AM) Oxygen Saturation [94-100 %] 99 % (07/16/23 9:11 AM) Pulse Rate [55-90 bpm] 59 bpm (07/16/23 9:11 AM) Blood Pressure [90-138/55-84 mm Hg] 129/ 69mm Hg (07/16/23 9:11 AM) Temperature [96.8-100.4 DegF] 98.0 DegF (07/16/23 9:11 AM) Mode of Delivery (Oxygen) Room air (07/16/23 9:11 AM) Blood pressure sites Arm, left (07/16/23 9:11 AM) Temperature Route Oral (07/16/23 9:11 AM) Dry Weight 77.5 kg (07/16/23 9:11 AM) Dry Weight Obtained Via Patient/family s tated (07/16/23 9:11 AM) Social History Social History Type Response Smoking Status Former smoker, quit more than 30 days ago; Other: quit 15 years ago; entered on: 07/09/23 Sex Implantable Device List Procedure Provider Procedure Date Device Type Site Lengthening Gastrocnemius Lcua Acosta MD 06/02/22 Un known Foot Right Device Identifier Serial Number Lot or Batch Number Manufacturing Date Expiration Date Distinct Identification Code MRI Safety Implantable Status Assigning Authority Unknown Unknown [id number] Unknown 08/05/23 Unknown Unknown Active Un known Procedure Provider Procedure Date Device Type Site Lengthening Gastrocnemius Luca Acosta MD 06/02/22 Un known Foot Right Device Identifier Serial Number Lot or Batch Number Manufacturing Date Expiration Date Distinct Identification Code MRI Safety Implantable Status Assigning Authority Unknown [id number] Unknown 10/11/23 Unknown Unknown Active Unknown Note * Bannigan DO, Lyric: PERFORM Event Display: Patient Education Leaflets Authored Date: [id number] Diarrhea with Uncertain Cause (Adult) ?? [id number] Diarrhea with Uncertain Cause (Adult) Diarrhea is when stools are loose and watery. This can be caused by: ??? Viral infections ??? Bacterial infections ??? Food poisoning ??? Parasites ??? Irritable bowel syndrome (IBS) ??? Inflammatory bowel diseases such as ulcerative colitis, Crohn's disease, and celiac disease ??? Food intolerance, such as to lactose, the sugar found in milk and milk products ??? Reaction to medicines like antibiotics, laxatives, cancer medicines, and antacids Along with diarrhea, you may also have: ??? Abdominal pain and cramping ??? Nausea and vomiting ??? Loss of bowel control ??? Fever and chills ??? Bloody stools In some cases, antibiotics may help to treat diarrhea. You may have a stool sample test which is done to see what is causing your diarrhea, and if antibiotics will help treat it. The results of a stool sample test may take up to 2 days. The healthcare provider may not give you antibiotics until they have the stool test results. Diarrhea can cause dehydration. This is the loss of too much water and other fluids from the body. When this occurs, you must replace those body fluids. This can be done with oral rehydration solutions. Oral rehydration solutions are available at drugstores and grocery stores without a prescription. Sports drinks are not the best choice if you are very dehydrated. They usually have too much sugarand not enough electrolytes. Home care Follow all instructions given by your healthcare provider. Rest at home for the next 24 hours, or until you feel better. Avoid caffeine, tobacco, and alcohol. These can make diarrhea, cramping, and pain worse. If taking medicines: ??? Atuf-ocw-kjckyfa nausea and diarrhea medicines are generally OK unless you experience fever or blood in the stool. Check with your healthcare provider first in those circumstances. ??? You may use acetaminophen or nonsteroidal anti-inflammatory drugs (NSAIDs) such as ibuprofen or naproxen to reduce pain and fever. Don???t use these if you have chronic liver or kidney disease, or ever had a stomach ulcer or gastrointestinal??bleeding. Don't use NSAID medicines if you are already taking one for another condition (like arthritis) or are on daily aspirin therapy (such as for heart disease or after a stroke). Talk with your healthcare provider first. ??? If antibiotics were prescribed, be sure you take them until they are finished. Don???t stop taking them even when you feel better. Antibiotics must be taken exactly as prescribed. To prevent the spread of illness: ??? Remember that washing with soap and clean, running water and using alcohol- based clay machine operator is the best way to prevent the spread of infection. Dry your hands with a single-use towel (like a papertowel). ??? Clean the toilet after each use. ??? Wash your hands before eating. ??? Wash your handsbefore and after preparing food. Keep in mind that people with diarrhea or vomiting should not prepare food for others. ??? Wash your hands after using cutting boards, counter tops, and knives that have been in contact with raw foods. ??? Wash and then peel fruits and vegetables. ??? Keep uncooked meats away from cooked and ibowh-js-geh foods. ??? Use a food thermometer when cooking. Cook poultryto at least 165??F (74??C). Cook ground meat (beef, veal, pork, burgess) to at least 160??F (71??C). Cook fresh beef, veal, burgess, and pork to at least 145??F (63??C). ??? Don???t eat raw or undercooked eggs (poached or emilia side up), poultry, meat, or unpasteurized milk and juices. Food and drinks The main goal while treating vomiting or diarrhea is to prevent dehydration. This is done by takingsmall amounts of liquids often. ??? Keep in mind that liquids are more important than food right now. ??? Drink only small amounts of liquids at a time. ??? Don???t force yourself to eat, especially if you are??having cramping, vomiting, or diarrhea. Don???t eat large amounts at a time, even if you are hungry. ??? If you eat, avoid fatty, greasy, spicy, or fried foods. ??? Don???t eat dairy foods or drink milk if you have diarrhea.??These can make??diarrhea worse. During the first 24 hours you can try: ??? Oral rehydration solutions.?? Sports drinks may be used if you are not too dehydrated and are otherwise healthy. ??? Soft drinks without caffeine ??? Manasa mehreen ??? Water (plain or flavored) ??? Decaf tea or coffee ??? Clear broth, consomm??, or bouillon ??? Gelatin, ice pops, or frozen fruit juice bars The second 24 hours, if you are feeling better, you can add: ??? Hot cereal, plain toast, bread, rolls, or crackers ??? Plain noodles, rice, mashed potatoes, chicken noodle soup, or rice soup ??? Applesauce, unsweetened canned fruit (no pineapple) ??? Bananas As you recover: ??? Limit fat intake to less than 15 grams per day. Don???t eat margarine, butter, oils, mayonnaise, sauces, gravies, fried foods, peanut butter, meat, poultry, or fish. ??? Limit fiber. Don???t eat raw or cooked vegetables, fresh fruits except bananas, or bran cereals. ??? Limit caffeine and chocolate. ??? Limit dairy. ??? Don???t use spices or seasonings except salt. ??? Go backto your normal diet over time, as you feel better and your symptoms improve. ??? If the symptoms come back, go back to a simple diet or clear liquids. ?? Follow-up care Follow up with your healthcare provider, or as advised. If a stool sample was taken or cultures were done, call the healthcare provider for the results as instructed. ?? Call 911 Call 911 if you have any of these symptoms: ??? Trouble breathing ??? Confusion ??? Extreme drowsiness or trouble walking ??? Loss of consciousness ??? Rapid heart rate ??? Chest pain ??? Stiff neck ??? Seizure ?? When to get medical advice Call your healthcare provider right away if any of these occur: ??? Abdominal pain that gets worse ??? Constant lower right abdominal pain ??? Continued vomiting and inability to keep liquids down ??? Diarrhea more than 5 times a day ??? Blood in vomit or stool ??? Dark urine or no urine for 8 hours, dry mouth and tongue, tiredness, weakness, or dizziness ??? Drowsiness ??? New rash ??? You don???t get better in 2 to 3 days ??? Fever of 100.4??F (38??C) or higher, or as advised by your provider ?? Last Reviewed Date: 2021 ?? 4467-7256 [employer]. All rights reserved. This information is not intended as a substitute for professional medical care. Always follow your healthcare professional's instructions. ?? * Lyric Jain DO: PERFORM Event Display: Patient Education Leaflets Authored Date: [id number] Nonspecific Vomiting and Diarrhea (Adult) ?? [id number] Nonspecific Vomiting and Diarrhea (Adult) Vomiting and diarrhea can have many causes, including: ??? Helping your body get rid of harmful substances? Gastroenteritis caused by viruses, parasites,??bacteria, or toxins ??? Allergy to??or side effect of??a food or medicine ??? Severe stress orworry (anxiety)? Other illnesses ??? It's often hard to pinpoint an exact cause, even with testing.??Vomiting and diarrhea often go awaywithin a day or two without problems. But if these symptoms continue, it may lead to too much loss of fluid (dehydration). This can be serious if not treated. Home care Medicines ??? You may use acetaminophen or nonsteroidal anti-inflammatory drugs (NSAID) such as ibuprofen or naproxen to control fever, unless another medicine was prescribed. If you have chronic liver or kidney disease, talk with your healthcare provider before using these medicines. Also talk with your provider if you've had a stomach ulcer or??gastrointestinal bleeding. Don't give aspirin to anyone under 18 years of age who is ill with a fever because it may cause a serious illness called Tanmay syndrome that may result in severe disease or even . Don't use NSAID medicines if you are already taking one for another condition (like arthritis) or are on aspirin (such as for heart disease or after a stroke) ??? Kmjc-nzv-ljnrcfw medicines for diarrhea, nausea, and vomiting are generally OK unlessyou have bleeding, fever, or severe abdominal pain. General care ??? If symptoms are severe, rest at home for the next 24 hours, or until you are feeling better. ??? Washing your hands with soap and clean, running water, or using alcohol-based hand clay machine operator??is the best way to stop the spread of infection. Wash your hands after touching anyone who is sick. ??? Wash your hands after using the toilet and before meals. Clean the toilet after each use. ??? Dry your hands with a single-use disposable towel ??? Caffeine, tobacco, and alcohol can make the diarrhea, cramping, and pain worse. Remember, caffeine not only is??in coffee, but also is??in chocolate, some energy drinks, some soft drinks, and teas. Diet ??? Water and clear liquids are important so you don't get dehydrated. Drink a small amount at a time but frequently. Don't guzzle down the drinks.??That may increase your nausea, make cramping worse, and??cause the drinks??to come back up. ??? Sports drinks may also help if you are healthy and nottoo dehydrated. But, they have too much sugar and not enough electrolytes and can sometimes make things worse. Also, don't drink beverages that are too acidic, like orange juice and grape juice. ??? If you are very dehydrated, products called oral rehydration solutions are available at most grocerystores and pharmacies. Food ??? Don't force yourself to eat, especially if you have cramps, diarrhea, or vomiting.??Eat just a little at a time, and then wait a few minutes before you try to eat more. ??? Don't eat fatty, greasy, spicy, or fried foods. ??? Don't eat dairy products if you have diarrhea. They can make it worse. During the first??24 hours??(the first full day),??follow the diet below: ??? Beverages: Oral rehydration solutions, sports drinks, soft drinks without caffeine, mineral water, and decaffeinated tea and coffee ??? Soups: Clear broth, consomm??, and bouillon ??? Desserts: Plain gelatin, ice pops, and fruit juice bars During the next 24 hours??(the second day),??you may add the following to the above??if you are better. If not, continue what you did the first day: ??? Hot cereal, plain toast, bread, rolls, crackers ??? Plain noodles, rice, mashed potatoes, chicken noodle or rice soup ??? Unsweetened canned fruit (avoid pineapple), bananas ??? Limit fat intake to less than 15 grams per day by avoiding margarine, butter, oils, mayonnaise, sauces, gravies, fried foods, peanut butter, meat, poultry, and fish. ??? Limit fiber. Avoid raw or cooked vegetables, fresh fruits (except bananas) and bran cereals. ??? Limit caffeine and chocolate. No spices or seasonings except salt. During the next 24 hours: ??? Gradually resume a normal diet, as you feel better and your symptoms improve. ??? If at any time??your symptoms??start getting worse again, go back to clear liquids until you feel better. Food preparation ??? If you have diarrhea, do not prepare food for others. When preparing foods, wash your hands before and after. ??? Wash your hands or use alcohol-based clay machine operator after using cutting boards, counter tops, and knives that have been in contact with raw food. ??? Dry your hands witha single-use disposable towel. ??? Keep uncooked meats away from cooked and vtgnx-na-dnw foods. ?? Follow-up care Follow up with your healthcare provider, or as advised. Call if you don't get better in the next 2 to 3 days. If a stool (diarrhea) sample was taken,??or cultures done, you will be told if they are positive, or if your treatment needs to be changed. You may call as directed for the results. If X-rays were taken, you will be notified of any new findings that may affect your care ?? Call 911 Call 911 if any of these occur: ??? Trouble breathing ??? Chest pain ??? Confusion ??? Severe drowsiness or trouble awakening ??? Fainting or loss of consciousness ??? Rapid heart rate ??? Seizure ??? Stiff neck ??? Severe weakness, dizziness, or lightheadedness ?? When to get medical advice Call your healthcare provider right away if any of these occur: ??? Bloody or black vomit or stools??? Severe, steady abdominal pain or any abdominal pain that is getting worse ??? Severe headache or stiff neck ??? An inability to hold down even sips of liquids for more than 12 hours ??? Vomiting that lasts more than 24 hours ??? Diarrhea that lasts more than 24 hours ??? Fever of 100.4??F (38.0??C) or higher, or as directed by your healthcare provider ??? Yellowish color to your skin or the whites of your eyes ??? Signs of dehydration,??such as dry mouth, little urine (less than every 6 hours), or very dark urine ?? Last Reviewed Date: 2022 ?? [id number] [employer]. All rights reserved. This information is not intended as a substitute for professional medical care. Always follow your healthcare professional's instructions. ?? Patient Care team information Care Team Personnel Name: Tracy Martinez RN Position: [facility] RN Member Role: Primary Care Nurse Name: Louis Shirley Position: Reference Physician Member Role: PCP Address: Address: [address] [facility] [address] [place] [address]- Name: Lyric Jain DO Position: [facility] Resident Member Role: ED Resident Address: Address: [address] [place] [address]- Name: Bam Dominique RN Position: [facility] ED RN W/OE and Tasks Member Role: Patient Care Provider Name: Kai Leggett MD Position: [facility] ED Medicine MD Member Role: Admitting Physician Address: Address: [address] [place] [address] Palliative [place] [address]- Name: Bere Schreiber Position: [facility] ED [facility] Care Team Related Persons Name: TY NORTH Address: home [address] [place] [address] Name: VANESSA PATEL Address: home [address] [place] [address]
--- OUTSIDE RECORDS SUMMARY | 2024-01-26 07:34 | XMS_ITS | Continuity of Care Document ---
Author Organization [facility] ter Address [address] [place] [address]- Care Team Providers Care Pharmaceutical Detailer Name Role Phone Louis Shirley Primary Care Physician [place] [facility] [place]/15/23 - 10/15/[address] [email or web address] Attending Physician: Rochelle SANDERS, Weston John Allergies, Adverse Reactions, Alerts Substance Reaction Severity [...] 5 Refills, Maintenance, 08/18/23 13:57:00 EST, Tablet, [id number], Partial fill upon patient request if the [...] AM, 0 Refills, Maintenance, 04/22/19 10:45:51 EDT, [place] Start Date: 04/22/19 Status: Ordered lansoprazole 30 [...] Safety Implantable Status Assigning Authority Unknown Unknown [id number] Unknown 08/05/23 Unknown Unknown Active Un known Procedure Provider Procedure Date Device Type Site Lengthening Gastrocnemius Luca Acosta MD 06/02/22 Un known Foot Right Device Identifier Serial Number Lot or Batch Number Manufacturing Date Expiration Date Distinct Identification Code MRI Safety Implantable Status Assigning Authority Unknown [id number] Unknown 10/11/23 Unknown Unknown Active Unknown Patient Care team information Care Team Personnel Name: Louis Shirley Position: Reference Physician Member Role: PCP Address: Address: [address] [place] [address] [address] [place] [address]- Care Team Related Persons Name: TY NORTH Address: [address] [place] [address] Name: VANESSA PATEL Address: home [address] [place] [address]
--- OUTSIDE RECORDS SUMMARY | 2024-01-26 07:34 | XMS_ITS | Continuity of Care Document ---
Author Organization [facility] [place] [address] [address]- Care Team Providers Care Subsorter Name Role Phone Nataliia Hinojosa MD Primary Care Physician [phone] Encounter [facility] Date(s): 08/01/22 - 08/08/22 [facility] [address] [address]- Attending Physician: Nathaly Sutherland Admitting Physician: Nathaly Sutherland Referring Physician: Nathaly Sutherland Allergies, Adverse Reactions, Alerts Substance Reaction Severity Status codeine N/V Active Percocet itch Active Egg Allergy abd pain Active Other [...] AM, 0 Refills, Maintenance, 04/22/19 10:45:51 EDT, [place] Start Date: 04/22/19 Status: Ordered lansoprazole 30 [...] Safety Implantable Status Assigning Authority Unknown Unknown [id number] Unknown 08/05/23 Unknown Unknown Active Un known Procedure Provider Procedure Date Device Type Site Lengthening Luca Pedro MD 06/02/22 Un known Foot Right Device Identifier Serial Number Lot or Batch Number Manufacturing Date Expiration Date Distinct Identification Code MRI Safety Implantable Status Assigning Authority Unknown [id number] -1 Unknown 10/11/23 Unknown Unknown Active Unknown Patient Care team information Care Team Personnel Name: Trayc Martinez RN Position: [facility] RN Member Role: Primary Care Nurse Name: Nataliia Hinojosa MD Position: [facility] Physician (General Medicine) Member Role: PCP Address: Address: [address] [place], [place] [address] Name: Maria Guadalupe Castellon RN Position: [facility] RN Supv Member Role: Primary Care Nurse Care Team Related Persons Name: TY NORTH Address: home [address] [place] [address] Name: VANESSA PATEL Address: home [address] [place] [id number]
--- OUTSIDE RECORDS SUMMARY | 2024-01-26 07:34 | XMS_ITS | Continuity of Care Document ---
Author Organization [facility] Address [address] [address]- Care Team Providers Care Trust Administrator Name Role Phone Louis Shirley Primary Care Physician Encounter [facility] [place] Date(s): 10/09/23 - 11/08/23 [facility] [address] [address]- Attending Physician: Luzmaria Michael Admitting Physician: AdmtrLuzmaria Referring Physician: Admtr Ar8 Allergies, Adverse Reactions, Alerts Substance Reaction [...] 5 Refills, Maintenance, 08/18/23 13:57:00 EST, Tablet, [id number], Partial fill upon patient request if the [...] AM, 0 Refills, Maintenance, 04/22/19 10:45:51 EDT, [place] Start Date: 04/22/19 Status: Ordered lansoprazole 30 [...] Safety Implantable Status Assigning Authority Unknown Unknown [id number] Unknown 08/05/23 Unknown Unknown Active Un known Procedure Provider Procedure Date Device Type Site Lengthening Gastrocnemius Luca Acosta MD 06/02/22 Un known Foot Right Device Identifier Serial Number Lot or Batch Number Manufacturing Date Expiration Date Distinct Identification Code MRI Safety Implantable Status Assigning Authority Unknown [id number] Unknown 10/11/23 Unknown Unknown Active Unknown Patient Care team information Care Team Personnel Name: Louis Shirley Position: Reference Physician Member Role: PCP Address: Address: [address] [place] [address]- Care Team Related Persons Name: TY NORTH Address: [place] [address] [place] [address] Name: VANESSA PATEL Address: home [address] [place] [address]
--- OUTSIDE RECORDS SUMMARY | 2024-01-26 07:34 | XMS_ITS | Continuity of Care Document ---
Author Organization [facility] ter Address [address] [place] [address]- Care Team Providers Care Environmental Services Supervisor Name Role Phone Nataliia Hinojosa MD Primary Care Physician [phone] [place] [facility] [place] - 06/27/[address] [address]- Encounter Diagnosis Precordial chest pain(Final) - 06/26/21 Discharge Disposition: A-D/C Home Attending Physician: Narayan Anthony MD Admitting Physician: Sujit Layne MD Referring Physician: Not on Staff, Referring MD Allergies, Adverse Reactions, Alerts Substance Reaction Severity Status codeine N/V Active Percocet itch Active Wheat psoriasis Active Egg Allergy abd [...] AM, 0 Refills, Maintenance, 04/22/19 10:45:51 EDT, [place] Start Date: 04/22/19 Status: Ordered lansoprazole 30 [...] 10:37:59 EDT Start Date: 04/22/19 Status: Ordered Results Radiology Reports * Exam Date Time Procedure Performing Provider Status 06/26/21 10:43 PM Chest 2 Views Frontal and Lat [facility] er , Pamela; Auth (Verified) Notes: (Chest 2 Views Frontal and Lat) Reason For Exam: Shortness of Breath RESULT: Chest 2 Views Frontal and Lat Chest 2 Views Frontal and Lat INDICATION: onset 2 hours ago, feels she went into afib, chest tight, fast HR 130's, took 100mg flecanide, not anti coagulated COMPARISON: 08/25/2017. FINDINGS: LINES AND TUBES: None. LUNGS AND PLEURA: Clear lungs. Normal pulmonary vascularity. No pleural effusion. No pneumothorax. HEART, MEDIASTINUM AND BRENDEN: Heart is normal in size. Normal upper mediastinal and hilar contour. BONES AND SOFT TISSUES: No acute abnormality. Interval placement of implantable loop recorder in the left anterior lower chest. Right upper quadrant surgical clips suggest cholecystectomy. IMPRESSION: No acute abnormality. I have personally reviewed the images and I agree with this report. WSN: [id number] Ordering Physician: Alexandra Villegas Dictated By: Marilyn Rowland MD Dictated Date/Time: 06/26/21 10:56 p Reviewed By: Edis Bellamy MD Signed By: Edis Bellamy MD Signed Date/Time: 06/26/21 11:01 pm Transcribed By: IBETH Transcribed Date/Time: 06/26/21 10:49 pm Vital Signs Most recent to oldest [Reference Range]: 1 2 3 Height 155 cm (06/27/21 3:18 AM) 155 cm (06/27/21 3:13 AM) Weight 78.6 kg (06/27/21 3:18 AM) 78.6 kg (06/27/21 3:11 AM) Oxygen Saturation [94-100 %] 98 % (06/27/21 8:00 AM) 99 % (06/27/21 3:18 AM) 99 % (06/27/21 3:11 AM) Pulse Rate [55-90 bpm] 60 bpm (06/27/21 8:00 AM) 63 bpm (06/27/21 3:18 AM) 63 bpm (06/27/21 3:11 AM) Body Mass Index [18.5-24.99] 32.72 *>HHI* (06/27/21 3:18 AM) Blood Pressure [90-138/55-84 mm Hg] 128/73mm Hg (06/27/21 8:00 AM) 131/58mm Hg (06/27/21 3:18 AM) 131/58mm Hg (06/27/21 3:11 AM) Respiratory Rate [16-30 br/min] 18 br/min (06/27/21 8:00 AM) 18 br/min (06/27/21 3:18 AM) 20 br/min (06/27/21 3:11 AM) Temperature [96.8-100.4 DegF] 98.1 DegF (06/27/21 8:00 AM) 98 DegF (06/27/21 3:18 AM) 98.0 DegF (06/27/21 3:11 AM) Mode of Delivery (Oxygen) Room air (06/27/21 8:00 AM) Room air (06/27/21 3:18 AM) Room air (06/27/21 3:11 AM) Blood pressure sites Arm, left (06/27/21 8:00 AM) Arm, left (06/27/21 3:18 AM) Arm, left (06/27/21 3:11 AM) Temperature Route Oral (06/27/21 8:00 AM) Oral (06/27/21 3:18 AM) Oral (06/27/21 3:11 AM) Dry Weight 78.6 kg (06/27/21 3:18 AM) Weight Obtained Via Patient/family state d (06/27/21 3:18 AM) Patient/family stated (06/27/21 3:11 AM) Dry Weight Obtained Via Patient/family s tated (06/27/21 3:18 AM) Social History Social History Type Response Smoking Status Former smoker, quit more than 30 days ago entered on: 04/14/19 Sex Female
--- OUTSIDE RECORDS SUMMARY | 2024-01-26 07:34 | XMS_ITS | Continuity of Care Document ---
Author Organization [facility] Address [address] [address]- Care Team Providers Care Car Supplier Name Role Phone Louis Shirley Primary Care Physician [phone] Encounter [facility] Date(s): 06/01/23 - 07/01/23 [facility] [address] [address]- [place] Allergies, Adverse Reactions, Alerts Substance Reaction [...] AM, 0 Refills, Maintenance, 04/22/19 10:45:51 EDT, [place] Start Date: 04/22/19 Status: Ordered lansoprazole 30 [...] Safety Implantable Status Assigning Authority Unknown Unknown [id number] Unknown 08/05/23 Unknown Unknown Active Un known Procedure Provider Procedure Date Device Type Site Lengthening Gastrocnemius Luca Acosta MD 06/02/22 Un known Foot Right Device Identifier Serial Number Lot or Batch Number Manufacturing Date Expiration Date Distinct Identification Code MRI Safety Implantable Status Assigning Authority Unknown [id number] Unknown 10/11/23 Unknown Unknown Active Unknown Patient Care team information Care Team Personnel Name: Tracy Martinez RN Position: S RN Member Role: Primary Care Nurse Name: Louis Shirley Position: Reference Physician Member Role: PCP Address: Address: [email or web address] [place] [address]- Care Team Related Persons Name: TY NORTH Address: [address] [place] [address] Name: VANESSA PATEL Address: home [address] [place] [address]
--- OUTSIDE RECORDS SUMMARY | 2024-01-26 07:34 | XMS_ITS | Continuity of Care Document ---
Author Organization [facility] Address [address] [address]- Care Team Providers Care Gravity Prospecting Supervisor Name Role Phone Nataliia Hinojosa MD Primary Care Physician Encounter [facility] [place] Date(s): 02/02/23 - 03/04/23 [facility] [address] [address]- [place] Allergies, Adverse Reactions, Alerts Substance Reaction [...] AM, 0 Refills, Maintenance, 04/22/19 10:45:51 EDT, [place] Start Date: 04/22/19 Status: Ordered lansoprazole [...] Safety Implantable Status Assigning Authority Unknown Unknown [id number] Unknown 08/05/23 Unknown Unknown Active Un known Procedure Provider Procedure Date Device Type Site Lengthening Gastrocnemius Luca Acosta MD 06/02/22 Un known Foot Right Device Identifier Serial Number Lot or Batch Number Manufacturing Date Expiration Date Distinct Identification Code MRI Safety Implantable Status Assigning Authority Unknown [id number] Unknown 10/11/23 Unknown Unknown Active Unknown Patient Care team information Care Team Personnel Name: Tracy Martinez RN Position: [facility] RN Member Role: Primary Care Nurse Name: Nataliia Hinojosa MD Position: [facility] Physician - Primary Care Member Role: PCP Address: Address: [address] [place] [address]- Name: Maria Guadalupe Castellon RN Position: [facility] RN Supv Member Role: Primary Care Nurse Care Team Related Persons Name: TY NORTH Address: home [address] [place] [address] Name: VANESSA PATEL Address: home [address] [place] [address]
--- OUTSIDE RECORDS SUMMARY | 2024-01-26 07:34 | XMS_ITS | Continuity of Care Document ---
Author Organization [facility] Address [address] [address]- Care Team Providers Care Chief Psychology Name Role Phone Nataliia Hinojosa MD Primary Care Physician [place] [facility] [place] [facility] [id number] Date(s): 02/15/21 - 02/22/21 [facility] [address] [address]- Attending Physician: Nathaly Sutherland Admitting Physician: Nathaly [...] AM, 0 Refills, Maintenance, 04/22/19 10:45:51 EDT, [place] Start Date: 04/22/19 Status: Ordered lansoprazole 30 [...]
--- OUTSIDE RECORDS SUMMARY | 2024-01-26 07:34 | XMS_ITS | Continuity of Care Document ---
Author Organization [facility] Address [address] [address]- Care Team Providers Care Brand Coordinator Name Role Phone Nataliia Hinojosa MD Primary Care Physician [phone] [place] [facility] [place](s): 01/14/22 - 01/21/22 [facility] [address] [address]- Attending Physician: Nathaly Sutherland Admitting Physician: Nathaly [...] AM, 0 Refills, Maintenance, 04/22/19 10:45:51 EDT, [place] Start Date: 04/22/19 Status: Ordered lansoprazole 30 [...]
--- OUTSIDE RECORDS SUMMARY | 2024-01-26 07:34 | XMS_ITS | Continuity of Care Document ---
Author Organization [facility] Address [address] [place] [address]- Care Team Providers Care [employer] Technician Name Role Phone Louis Shirley Primary Care Physician [phone] Encounter [facility] R [id number] Date(s): 10/21/23 - 10/22/[address] [address]- Discharge Disposition: A-D/C Home Attending Physician: Murphy Coleman MD Admitting Physician: Norma Chin MD Referring Physician: Not on Staff, Referring MD Allergies, Adverse Reactions, Alerts Substance Reaction Severity Status codeine N/V Active Percocet itch Active Percodan itching Active Egg Allergy abd pain Active Vicodin [...] 5 Refills, Maintenance, 08/18/23 13:57:00 EST, Tablet, [id number], Partial fill upon patient request if the [...] AM, 0 Refills, Maintenance, 04/22/19 10:45:51 EDT, [place] Start Date: 04/22/19 Status: Ordered lansoprazole 30 [...] Exam Date Time Procedure Performing Provider Status 10/21/23 10:29 AM Chest Portable Damián , Marie; Auth (V erified) Notes: (Chest Portable) Reason For Exam: Shortness of Breath RESULT: Chest Portable Chest Portable Hx of Present Illness: See ESIlevel 1; Reason: Shortness of Breath; Clinical Question(s): CHF COMPARISON: 06/26/2021 FINDINGS: LINES AND TUBES: Loop recorder device. LUNGS AND PLEURA: Clear lungs. Normal pulmonary vascularity. No pleural effusion. No pneumothorax. HEART, MEDIASTINUM AND BRENDEN: Heart is normal in size. Normal mediastinal and hilar contour. BONES AND SOFT TISSUES: No acute abnormality. IMPRESSION: No acute abnormality. WSN: [id number] Ordering Physician: Bailey Augustine Dictated By: Gualberto Bentley MD Dictated Date/Time: 10/21/23 10:31 a Reviewed By: Gualberto Bentley MD Signed By: Gualberto Bentley MD Signed Date/Time: 10/21/23 10:31 am Transcribed By: IBETH Transcribed Date/Time: 10/21/23 10:30 am Vital Signs Most recent to oldest [Reference Range]: 1 2 3 Height 159 cm (10/22/23 10:44 AM) 159 cm (10/22/23 6:05 AM) 159 cm (10/22/23 4:48 AM) Weight 79 kg (10/22/23 10:44 AM) 79 kg (10/22/23 6:05 AM) 79 kg (10/22/23 4:48 AM) Oxygen Saturation [94-100 %] 96 % (10/22/23 10:44 AM) 94 % (10/22/23 6:05 AM) 94 % (10/22/23 4:48 AM) Pulse Rate [55-90 bpm] 66 bpm (10/22/23 10:44 AM) 71 bpm (10/22/23 6:05 AM) 62 bpm (10/22/23 4:48 AM) Body Mass Index [18.5-24.99 kg/m2] 31.25 kg/m2 *>HHI* (10/22/23 10:44 AM) 31.25 kg/m2 *>HHI* (10/22/23 6:05 AM) 31.25 kg/m2 *>HHI* (10/22/23 4:48 AM) Blood Pressure [90-138/55-84 mm Hg] 138/66mm Hg (10/22/23 10:44 AM) 127/55mm Hg (10/22/23 6:05 AM) 114/54mm Hg (10/22/23 4:48 AM) Respiratory Rate [16-30 br/min] 18 br/min (10/22/23 10:44 AM) 9 br/min *L* (10/22/23 6:05 AM) 18 br/min (10/22/23 4:48 AM) Temperature [96.8-100.4 DegF] 98.5 DegF (10/22/23 10:44 AM) 98.7 DegF (10/21/23 7:33 PM) 98.3 DegF (10/21/23 9:41 AM) Mode of Delivery (Oxygen) Room air (10/22/23 10:44 AM) Room air (10/22/23 6:05 AM) Room air (10/22/23 4:48 AM) Blood pressure sites Arm, left (10/22/23 10:44 AM) Arm, left (10/22/23 6:05 AM) Arm, left (10/22/23 4:48 AM) Temperature Route Oral (10/22/23 10:44 AM) Oral (10/21/23 7:33 PM) Oral (10/21/23 9:41 AM) Dry Weight 79 kg (10/22/23 10:44 AM) 79 kg (10/22/23 6:05 AM) 79 kg (10/22/23 4:48 AM) Weight Obtained Via Patient/family state d (10/21/23 9:23 AM) Dry Weight Obtained Via Patient/family s tated (10/21/23 9:23 AM) Social History Social History Type Response [...] Safety Implantable Status Assigning Authority Unknown Unknown [id number] Unknown 08/05/23 Unknown Unknown Active Un known Procedure Provider Procedure Date Device Type Site Lengthening Gastrocnemius Luca Acosta MD 06/02/22 Un known Foot Right Device Identifier Serial Number Lot or Batch Number Manufacturing Date Expiration Date Distinct Identification Code MRI Safety Implantable Status Assigning Authority Unknown [id number] Unknown 10/11/23 Unknown Unknown Active Unknown Admission evaluation note * Robert SANDERS, Walt: PERFORM Event Display: Admission Note Authored Date: [id number] Patient: ??STEFANIE PATEL ? Age:??68 Years?Sex:??Female?:??1955?? Chief Complaint/Reason for Consultation Palpitations History of Present Illness The patient is a 68 years old female with past medical history of A-fib, osteoporosis, asthma??presented to ER with a chief??complaint of palpitations. ? The patient reported that she was in her usual state of health when she developed palpitations??around 10 PM??yesterday night.?? The patient described the palpitations sudden onset, feels like her heart is beating fast, continuous, with no aggravating or elevating factors. ??The patient checked herheart rate and it??was in 200s.?? The patient took extra pill of flecainide as recommended by her crew manager but per patient persisted to the night and therefore she decided to come to the ER in the morning. ?? The patient??also stated that she was having chest pain and shortness of breath??during the episodeof palpitations. ? At [facility] ER, patient??heart rate was in 170s and she was given 50-minute IV Cardizem with heart rate improved to 70s??and rhythm currently sinus rhythm. ? On my eval, patient is lying comfortably in the bed, denying any chest pain or palpitations. ? Review of Systems All pertinent negative and positives are noted in HPI. ??All other systems are reviewed and are negative Objective Measurements?? Height: 159 cm (10/21/23) Weight: 79 kg (10/21/23) Dry Weight: 79 kg (10/21/23) Body Mass Index:??31.25 kg/m2??Critical (10/21/23) ? Vital Signs?? Temperature: 98.7 DegF (10/21/23 19:33:00) Temperature Route: Oral (10/21/23 19:33:00) Pulse Rate: 71 bpm (10/21/23 23:05:00) Respiratory Rate: 20 br/min (10/21/23 23:05:00) Systolic Blood Pressure: 122 mm Hg (10/21/23 23:05:00) Diastolic Blood Pressure: 65 mm Hg (10/21/23 23:05:00) Blood pressure sites: Arm, left (10/21/23 23:05:00) Mean Arterial Pressure: 84 mm Hg (10/21/23 23:05:00) Pulse Pressure: 57 mm Hg (10/21/23 23:05:00) Oxygen Saturation: 94 % (10/21/23 23:05:00) Mode of Delivery (Oxygen): Room air (10/21/23 23:05:00) Early Warning Score: 2 (10/21/23 23:05:31) ? Physical Exam Constitutional: Alert, in no acute distress. Head: Normocephalic. ?? Eyes: Pupils are equal, round and reactive to light. Extraocular muscles intact. No pallor or scleral icterus ?? Ear, Nose and Throat: mucous membranes moist. Ears and nose - no obvious deformities. Trachea midline. ?? Neck: Supple, Full range of motion.No JVD or bruits. Respiratory:??Clear to auscultation. No wheezing or rhonchi.??No use of accessory muscles. No tactile fremitus.?? Cardiovascular:??PMI not visible. S1 S2 regular. No murmurs, rubs or gallops. Gastrointestinal:??Abdomen soft, non-tender, non-distended. Normal bowel sounds. No pulsatile mass.No hepatosplenomegaly. Genitourinary:??No costovertebral angle tenderness. Extremities: No lower extremity pitting edema. No cyanosis or clubbing. Neurologic:??AAOx3, Cranial nerves II-XII grossly intact. Speech normal, no facial droop. No focal neurological deficits. Moves all extremities spontaneously. Sensation intact bilaterally.??Flexor plantar response Skin:??No rash.?? Musculoskeletal:??No gross deformities on inspection. Normal range of motion in hips, knees, ankles. ??.??Muscle strength within normal limits Heme/Lymphatics:??Palpation of neck reveals no swelling or tenderness of neck nodes.?? Psychiatric: Normal mood and affect. Assessment/Plan Diagnoses 1. ??Atrial fibrillation with RVR ??(I48.91) 2. ??Elevated troponin level ??(R79.89) 3. ??Abnormal EKG ??(R94.31) 4. ??Elevated brain natriuretic peptide (BNP) level ??(R79.89) 5. ??COVID-19 virus infection ??(U07.1) 6. ??Asthma ??(J45.909) 7. ??GERD (gastroesophageal reflux disease) ??(K21.9) ?? Assessment:??The patient is a 68 years old female who is admitted with A-fib RVR and elevated troponin ?? Atrial fibrillation with RVR (I48.91):??Patient presented with palpitation that started around 10 PM and persisted through the night,??patient already was in 200s at home that remained elevated despite taking her dose of flecainide In ER, patient heart rate was in 170s,??patient was given Cardizem 50 mg and heart rate??improved to 70s with normal sinus rhythm Currently patient is asymptomatic, heart rate in 70s and in normal sinus rhythm Resume home medication flecainide, metoprolol, Eliquis Patient reported that she was scheduled to undergo cardiac ablation??on Thursday but she ended up being COVID-positive therefore it was postponed?? cardiology already consulted, will follow the recommendations ? Elevated troponin level (R79.89):??Etiology: Likely demonstrable due to A-fib versus less likely??NSTEMI Patient presented palpitations and elevated elevated heart rate??for at least 11 hours In ER, patient had a volume of 78 that improved to 70s after giving dose of??Cardizem 50 mg Patient did report episode of chest pain for around 50 mg resolved on its own Currently, patient is asymptomatic EKG was done that showed ST depression in leads V3 to V6??that were also present on previous EKG Troponin level 158-->252-->227-->194 Echocardiogram ordered Cardiology already aware the patient and recommended against heparin ? Abnormal EKG (R94.31):??Etiology and management as above ?? Elevated brain natriuretic peptide (BNP) level (R79.89):??Etiology: Likely due to A-fib Patient presented with elevated heart rate and found to have A-fib with RVR proBNP??3478 Chest x-ray did not show any evidence of pulmonary edema Echocardiogram pending Will monitor for signs of fluid overload ?? COVID-19 virus infection (U07.1):??Patient reported that she was diagnosed with COVID-19 yesterday Currently, patient only??complaining of nasal congestion and scratchy throat but denying any??cough, fever or chills Patient is satting above 94% on room air Will continue to monitor and treat symptomatically ?? Asthma (J45.909):??Currently stable On physical exam, no wheezing On albuterol as needed, resume home medication montelukast ?? GERD (gastroesophageal reflux disease) (K21.9):??Resume home meds lansoprazole ?? VTE Prophylaxis:??Eliquis ?VTE Prophylaxis Assessment:??VTE Prophylaxis Ordered ?? Code Status:??FULL CODE ?Order Code Status:??Code Status Ordered ?? Ongoing Medical Necessity:??A-FIB WITH RVR ?? Discharge Planning:??Pending clinical course ? Date of service: October 22, 2023 Histories Allergies Allergies ?(Active and Proposed Allergies Only) Nuts? (Severity: Unknown severity, Onset: Unknown) ?Reactions: per testing Mold? (Severity: Unknown severity, Onset: Unknown) ?Reactions: short of breath,sinus issues Wheat? (Severity: Unknown severity, Onset: Unknown) ?Reactions: psoriasis Other Food Allergy? (Severity: Unknown severity, Onset: Unknown) ?Reactions: dairy diarrhea Egg Allergy? (Severity: Unknown severity, Onset: Unknown) ?Reactions: abd pain Vicodin? (Severity: Unknown severity, Onset: Unknown) ?Reactions: C/O - vomiting Percodan? (Severity: Unknown severity, Onset: Unknown) ?Reactions: itching Percocet? (Severity: Unknown severity, Onset: Unknown) ?Reactions: itch codeine? (Severity: Unknown severity, Onset: Unknown) ?Reactions: N/V ? Past Medical History/Problem List Active Problems??(6) Arthritis Asthma Atrial fibrillation B12 deficiency anemia GERD (gastroesophageal reflux disease) Obese class I ? Past Surgical History Right thyroid lobectomy: 04/25/19 Right foot fusion TURBT ? Social History Alcohol ?? Details:??Use: occasionally. Tobacco Details:??Use: Former smoker, quit more than 30 days ago. ??Other: quit 15 years ago. ? Family History Mother: Diabetes mellitus type 2 Father: Cardiovascular disease Sister: Cancer; Cardiovascular disease Brother: Cancer; Cardiovascular disease ? Medications Home Medications aflibercept ophthalmic (Eylea 40 mg/mL intraocular solution)?2?Milligram Albuterol (ProAir HFA 90 mcg/inh inhalation aerosol with adapter)?2?puff(s)?Inhalation?Every 4 hours?as needed?for wheezing apixaban (Eliquis 5 mg oral tablet)?1?tab(s)?5?Milligram?By Mouth?2 times a day denosumab (Prolia)?60?Milligram?Subcutaneous Infusion?Every 6 months Flecainide (flecainide 50 mg oral tablet)?50?Milligram?1?tablet?By Mouth?Every 12hours Fluticasone Nasal (Flonase 50 mcg/inh nasal spray)?1?spray(s)?Nares, Both?Daily in AM Lansoprazole (lansoprazole 30 mg oral enteric coated capsule)?1?capsule?30?Milligram?By Mouth?Daily Metoprolol (Toprol XL 25 mg oral tablet, extended release)?12.5?Milligram?0.5?tablet?By Mouth?Daily Montelukast (Singulair 10 mg oral tablet)?10?Milligram?1?tablet?By Mouth?Daily ? Results Recent Labs BLOOD COUNT & DIFF WBC 10.4 k/mm3 ()?? 10/21/2023 09:50 RBC 4.69 m/mm3 ()?? 10/21/2023 09:50 Hgb 13.0 Gm/dL ()?? 10/21/2023 09:50 Hct 40.7 % ()?? 10/21/2023 09:50 MCV 86.8 femtoliters ()?? 10/21/2023 09:50 MCH 27.7 pg ()?? 10/21/2023 09:50 MCHC 31.9 g/dL (Low)?? 10/21/2023 09:50 Platelet Count 291 k/mm3 ()?? 10/21/2023 09:50 RDW-SD 45.2 femtoliters ()?? 10/21/2023 09:50 MPV 9.7 femtoliters ()?? 10/21/2023 09:50 Nucleated RBC (Automated) 0.0 #/100 WBC'S ()?? 10/21/2023 09:50 Abs. NRBC 0.0 k/mm3 ()?? 10/21/2023 09:50 Abs. Neut 8.2 k/mm3 (High)?? 10/21/2023 09:50 Abs. Lymph 1.0 k/mm3 ()?? 10/21/2023 09:50 Abs. Bullitt 1.0 k/mm3 (High)?? 10/21/2023 09:50 Abs. Eo 0.0 k/mm3 ()?? 10/21/2023 09:50 Abs. Baso 0.1 k/mm3 ()?? 10/21/2023 09:50 Neut % 79.3 % (High)?? 10/21/2023 09:50 Lymph % 9.7 % (Low)?? 10/21/2023 09:50 Bullitt % 9.8 % ()?? 10/21/2023 09:50 Eos % 0.0 % ()?? 10/21/2023 09:50 Baso % 0.5 % ()?? 10/21/2023 09:50 Imm Gran 0.7 % ()?? 10/21/2023 09:50 Abs. Imm Gran 0.1 k/mm3 ()?? 10/21/2023 09:50 ?? CARDIAC Nt-Probnp 3478 pg/mL (High)?? 10/21/2023 12:36 High Sensitivity Troponin (HSTnT) 194 ng/L (Critical)?? 10/21/2023 21:55 ?? CHEM GENERAL Sodium 139 mmol/L ()?? 10/21/2023 09:50 Potassium 4.6 mmol/L ()?? 10/21/2023 09:50 Chloride 101 mmol/L ()?? 10/21/2023 09:50 Bicarbonate Level 23 mmol/L ()?? 10/21/2023 09:50 Anion Gap 15 ()?? 10/21/2023 09:50 Glucose Level 126 mg/dL (High)?? 10/21/2023 09:50 BUN 19 mg/dL ()?? 10/21/2023 09:50 Creatinine-Blood 1.1 mg/dL (High)?? 10/21/2023 09:50 Estimated GFR Creatinine 58 ML/MIN/1.73 M2 ()?? 10/21/2023 09:50 Calcium 9.1 mg/dL ()?? 10/21/2023 09:50 Magnesium 2.0 mg/dL ()?? 10/21/2023 12:36 ?? HEME OTHER Hold Blue Top SPECIMEN DISCARDED AFTER 4 HOURS. ()?? 10/21/2023 09:50 ?? URINE OTHER Est Creatinine Clearance 39.78 mL/min ()?? 10/21/2023 11:48 ? Coagulation Profile?? No qualifying data available. ?? EKG study * Event Display: ECG 12-Lead Authored Date: Please click on pdf link to open report * Event Display: ECG 12-Lead Authored Date: Ventricular Rate: 77 BPM Atrial Rate: 77 BPM P-R Interval: 144 ms QRS Duration: 86 ms Q-T Interval: 372 ms QTC Calculation(Bazett): 420 ms P Paradise: 61 degrees R Paradise: -4 degrees T Paradise: 164 degrees Normal sinus rhythm ST and T wave abnormality, consider anterior ischemia Abnormal ECG When compared with ECG of 21-OCT-2023 09:51, MANUAL COMPARISON REQUIRED, DATA IS UNCONFIRMED Confirmed by AMANDA MORRELL MD () on 10/22/2023 6:32:11 AM Pitman: AMANDA MORRELL MD * Event Display: ECG 12-Lead Authored Date: [id number] Please click on pdf link to open report * Event Display: ECG 12-Lead Authored Date: [id number] Ventricular Rate: 74 BPM Atrial Rate: 74 BPM P-R Interval: 158 ms QRS Duration: 84 ms Q-T Interval: 362 ms QTC Calculation(Bazett): 401 ms P Paradise: 58 degrees R Paradise: 1 degrees T Paradise: 13 degrees Sinus rhythm with occasional and consecutive Premature ventricular complexes and Fusion complexes Nonspecific ST and T wave abnormality Abnormal ECG When compared with ECG of 21-OCT-2023 09:36, Fusion complexes are now Present Premature ventricular complexes are now Present Vent. rate has decreased BY 103 BPM Nonspecific T wave abnormality now evident in Anterior leads Confirmed by AMANDA MORRELL MD ([id number]) on 10/22/2023 6:32:04 AM Pitman: AMANDA MORRELL MD * Event Display: ECG 12-Lead Authored Date: Please click on pdf link to open report * Event Display: ECG 12-Lead Authored Date: Ventricular Rate: 177 BPM QRS Duration: 86 ms Q-T Interval: 254 ms QTC Calculation(Bazett): 436 ms R Paradise: -12 degrees T Paradise: 224 degrees Supraventricular tachycardia Marked ST abnormality, possible lateral subendocardial injury Abnormal ECG When compared with ECG of 02-SEP-2023 08:59, Vent. rate has increased BY [address] more depressed in Lateral leads Nonspecific T wave abnormality no longer evident in Anterior leads Nonspecific T wave abnormality, worse in Lateral leads Confirmed by AMANDA MORRELL MD ([id number]) on 10/21/2023 10:44:42 AM Pitman: AMANDA MORRELL MD Note * Murphy Coleman MD: PERFORM Event Display: Discharge/Transfer Note Hospital Authored Date: Patient: ??STEFANIE PATEL ? Age:??68 Years?Sex:??Female?:??1955?? Patient Information Discharge Location: [facility] Primary Care Physician: Louis Shirley Admit Date/Time: 10/21/23 15:29 Discharge Disposition Discharge Disposition: Home: No Services Discharge Diagnosis Atrial fibrillation with RVR (I48.91) Elevated troponin level (R79.89) Abnormal EKG (R94.31) Elevated brain natriuretic peptide (BNP) level (R79.89) COVID-19 virus infection (U07.1) Asthma (J45.909) GERD (gastroesophageal reflux disease) (K21.9) ?? _ Discharge Medications aflibercept ophthalmic (Eylea 40 mg/mL intraocular solution)?2?Milligram Albuterol (ProAir HFA 90 mcg/inh inhalation aerosol with adapter)?2?puff(s)?Inhalation?Every 4 hours?as needed?for wheezing apixaban (Eliquis 5 mg oral tablet)?1?tab(s)?5?Milligram?By Mouth?2 times a day denosumab (Prolia)?60?Milligram?Subcutaneous Infusion?Every 6 months Flecainide (flecainide 50 mg oral tablet)?50?Milligram?1?tablet?By Mouth?Every 12hours Fluticasone Nasal (Flonase 50 mcg/inh nasal spray)?1?spray(s)?Nares, Both?Daily in AM Lansoprazole (lansoprazole 30 mg oral enteric coated capsule)?1?capsule?30?Milligram?By Mouth?Daily Metoprolol (Toprol XL 25 mg oral tablet, extended release)?12.5?Milligram?0.5?tablet?By Mouth?Daily Montelukast (Singulair 10 mg oral tablet)?10?Milligram?1?tablet?By Mouth?Daily ? Vaccinations and Immunoprophylaxis influenza virus vaccine, inactivated: 0.7 Unknown (06/24/22 08:00:00) influenza virus vaccine, inactivated: 0.7 Unknown (08/20/21 07:00:00) influenza virus vaccine, inactivated: 0.5 Unknown (06/20/19 08:00:00) influenza virus vaccine, inactivated: 0.5 Unknown (07/14/16 08:00:00) pneumococcal 23-valent vaccine: 0.5 Unknown (07/14/21 08:00:00) SARS-CoV-2 (COVID-19) mRNA-1273 vaccine: 0.25 Unknown (08/27/21 07:00:00) SARS-CoV-2 (COVID-19) mRNA-1273 vaccine: 0.5 mL (12/03/20 09:14:00) SARS-CoV-2 (COVID-19) mRNA-1273 vaccine: 0.5 mL (11/05/20 16:47:00) tetanus-diphtheria toxoids (Td): 0.5 Unknown (05/04/21 08:00:00) ? Medications Started none Medications Discontinued none Doses Changed none Allergies Allergies ?(Active and Proposed Allergies Only) Nuts? (Severity: Unknown severity, Onset: Unknown) ?Reactions: per testing Mold? (Severity: Unknown severity, Onset: Unknown) ?Reactions: short of breath,sinus issues Wheat? (Severity: Unknown severity, Onset: Unknown) ?Reactions: psoriasis Other Food Allergy? (Severity: Unknown severity, Onset: Unknown) ?Reactions: dairy diarrhea Egg Allergy? (Severity: Unknown severity, Onset: Unknown) ?Reactions: abd pain Vicodin? (Severity: Unknown severity, Onset: Unknown) ?Reactions: C/O - vomiting Percodan? (Severity: Unknown severity, Onset: Unknown) ?Reactions: itching Percocet? (Severity: Unknown severity, Onset: Unknown) ?Reactions: itch codeine? (Severity: Unknown severity, Onset: Unknown) ?Reactions: N/V ? Future Appointments Thursday 1:50 PM EST ?? Where: [facility] Status: Pending Hospital Course The patient is a 68 years old female who is admitted with A-fib RVR and elevated troponin ?? Atrial fibrillation with RVR (I48.91):?? Patient presented with palpitation that started around 10 PM and persisted through the night,??patient already was in 200s at home that remained elevated despite taking her dose of flecainide In ER, patient heart rate was in 170s,??patient was given Cardizem 50 mg and heart rate??improved to 70s with normal sinus rhythm Currently patient is asymptomatic, heart rate in 70s and in normal sinus rhythm Resume home medication flecainide, metoprolol, Eliquis Patient reported that she was scheduled to undergo cardiac ablation??on Thursday but she ended up being COVID-positive therefore it was postponed?? cardiology already consulted, will follow the recommendations ? Elevated troponin level (R79.89):?? discussed with nutrition services assistant Dr Dick , no chest pain or sob , so likely demand given tachyarrhythmia?? OK to DC and follow up with cardiology if you developed chest pressure??or??tightness please call cardiology or??911 ? Abnormal EKG (R94.31):??Etiology and management as above ?? Elevated brain natriuretic peptide (BNP) level (R79.89):?? Etiology: Likely due to A-fib Patient presented with elevated heart rate and found to have A-fib with RVR proBNP??3478 Chest x-ray did not show any evidence of pulmonary edema Echocardiogram outpatient?no fluid overload ?? COVID-19 virus infection (U07.1):??Patient reported that she was diagnosed with COVID-19?? 10/21/2023 Currently, patient only??complaining of nasal congestion and scratchy throat but denying any??cough, fever or chills Patient is satting above 94% on room air Starndard precautions with mask for 10 days total ?? Asthma (J45.909):??Currently stable On physical exam, no wheezing On albuterol as needed, resume home medication montelukast ?? GERD (gastroesophageal reflux disease) (K21.9):??Resume home meds lansoprazole ?? VTE Prophylaxis:??Eliquis ?VTE Prophylaxis Assessment:??VTE Prophylaxis Ordered ?? Code Status:??FULL CODE ?Order Code Status:??Code Status Ordered ?? Plan of care discussed with the patient at the bedside in ED, she verbalized understanding and agrees to it She will call Dr. Byrd to follow up for date of ablation. Objective Assessment and Plan ? Measurements?? Height: 159 cm (10/22/23) Weight: 79 kg (10/22/23) Dry Weight: 79 kg (10/22/23) Body Mass Index:??31.25 kg/m2??Critical (10/22/23) ? Vital Signs?? Temperature: 98.7 DegF (10/21/23 19:33:00) Temperature Route: Oral (10/21/23 19:33:00) Pulse Rate: 71 bpm (10/22/23 06:05:00) Respiratory Rate:??9 br/min??Low (10/22/23 06:05:00) Systolic Blood Pressure: 127 mm Hg (10/22/23 06:05:00) Diastolic Blood Pressure: 55 mm Hg (10/22/23 06:05:00) Blood pressure sites: Arm, left (10/22/23 06:05:00) Mean Arterial Pressure: 79 mm Hg (10/22/23 06:05:00) Pulse Pressure: 72 mm Hg (10/22/23 06:05:00) Oxygen Saturation: 94 % (10/22/23 06:05:00) Mode of Delivery (Oxygen): Room air (10/22/23 06:05:00) Early Warning Score: 2 (10/22/23 07:02:50) ? . Physical Exam Constitutional: Alert, in no acute distress. Head: Normocephalic. Eyes: Pupils are equal, round and reactive to light. Extraocular muscles intact. No pallor or scleral icterus Ear, Nose and Throat: mucous membranes moist. Ears and nose - no obvious deformities. Trachea midline. Neck: Supple, Full range of motion.No JVD or bruits. Respiratory:??Clear to auscultation. No wheezing or rhonchi.??No use of accessory muscles. No tactile fremitus.?? Cardiovascular:?? S1 S2 regular. No murmurs, Gastrointestinal:??Abdomen soft, non-tender, non-distended. Normal bowel sounds. No pulsatile mass.No hepatosplenomegaly. Genitourinary:??No costovertebral angle tenderness. Extremities: No lower extremity pitting edema. No cyanosis or clubbing. Neurologic:??AAOx3, Cranial nerves II-XII grossly intact. Speech normal, no facial droop. No focal neurological deficits. Moves all extremities spontaneously. Sensation intact bilaterally.??Flexor plantar response Skin:??No rash.?? Musculoskeletal:??No gross deformities on inspection. Normal range of motion in hips, knees, ankles. ??.??Muscle strength within normal limits Heme/Lymphatics:??Palpation of neck reveals no swelling or tenderness of neck nodes.?? Psychiatric: Normal mood and affect. Pending Results No Pending Results Follow-Up Appointments Added Follow Up ?Time Frame ?Comments Louis Quijano Patient Instructions You came to the hospital for high heart rate??due to atrial fibrillation. Your heart rate??remained well-controlled??in the ED.??I discussed with cardiology??and??recommended discharge you to follow-up outpatient with??Dr. Ontiveros??as you are doing??for ablation.?? I did not change any medication??please continue taking all the medication prescribed by??cardiology. You have COVID??which was tested positive on Thursday. ??Please maintain a standard isolation??for 10 days. Home Health Face to Face ^HomeHealthFTF Results Discharge Labs BLOOD COUNT & DIFF WBC 6.1 k/mm3 ()?? 10/22/2023 05:57 RBC 4.23 m/mm3 ()?? 10/22/2023 05:57 Hgb 11.6 Gm/dL (Low)?? 10/22/2023 05:57 Hct 36.6 % ()?? 10/22/2023 05:57 MCV 86.5 femtoliters ()?? 10/22/2023 05:57 MCH 27.4 pg ()?? 10/22/2023 05:57 MCHC 31.7 g/dL (Low)?? 10/22/2023 05:57 Platelet Count 208 k/mm3 ()?? 10/22/2023 05:57 RDW-SD 45.1 femtoliters ()?? 10/22/2023 05:57 MPV 9.5 femtoliters ()?? 10/22/2023 05:57 Nucleated RBC (Automated) 0.0 #/100 WBC'S ()?? 10/22/2023 05:57 Abs. NRBC 0.0 k/mm3 ()?? 10/22/2023 05:57 Abs. Neut 8.2 k/mm3 (High)?? 10/21/2023 09:50 Abs. Lymph 1.0 k/mm3 ()?? 10/21/2023 09:50 Abs. Bullitt 1.0 k/mm3 (High)?? 10/21/2023 09:50 Abs. Eo 0.0 k/mm3 ()?? 10/21/2023 09:50 Abs. Baso 0.1 k/mm3 ()?? 10/21/2023 09:50 Neut % 79.3 % (High)?? 10/21/2023 09:50 Lymph % 9.7 % (Low)?? 10/21/2023 09:50 Bullitt % 9.8 % ()?? 10/21/2023 09:50 Eos % 0.0 % ()?? 10/21/2023 09:50 Baso % 0.5 % ()?? 10/21/2023 09:50 Imm Gran 0.7 % ()?? 10/21/2023 09:50 Abs. Imm Gran 0.1 k/mm3 ()?? 10/21/2023 09:50 ?? CARDIAC Nt-Probnp 3478 pg/mL (High)?? 10/21/2023 12:36 High Sensitivity Troponin (HSTnT) 157 ng/L (Critical)?? 10/22/2023 05:57 ?? CHEM GENERAL Sodium 140 mmol/L ()?? 10/22/2023 05:57 Potassium 4.9 mmol/L ()?? 10/22/2023 05:57 Chloride 105 mmol/L ()?? 10/22/2023 05:57 Bicarbonate Level 26 mmol/L ()?? 10/22/2023 05:57 Anion Gap 9 ()?? 10/22/2023 05:57 Glucose Level 92 mg/dL ()?? 10/22/2023 05:57 BUN 18 mg/dL ()?? 10/22/2023 05:57 Creatinine-Blood 0.8 mg/dL ()?? 10/22/2023 05:57 Estimated GFR Creatinine 83 ML/MIN/1.73 M2 ()?? 10/22/2023 05:57 Calcium 8.5 mg/dL (Low)?? 10/22/2023 05:57 Magnesium 2.0 mg/dL ()?? 10/22/2023 05:57 Protein, Total 6.0 Gm/dL (Low)?? 10/22/2023 05:57 Albumin 3.8 Gm/dL ()?? 10/22/2023 05:57 AG Ratio 1.7 ()?? 10/22/2023 05:57 Alkaline Phosphatase 67 units/L ()?? 10/22/2023 05:57 AST (SGOT) 23 units/L ()?? 10/22/2023 05:57 ALT (SGPT) 25 units/L ()?? 10/22/2023 05:57 Bilirubin, Total 0.2 mg/dL ()?? 10/22/2023 05:57 ?? COAG INR 1.0 ()?? 10/22/2023 05:57 Protime (PT) 10.9 seconds ()?? 10/22/2023 05:57 APTT 31.9 seconds ()?? 10/22/2023 05:57 ? HEME OTHER Hold Blue Top SPECIMEN DISCARDED AFTER 4 HOURS. ()?? 10/21/2023 09:50 ? URINE OTHER Est Creatinine Clearance 54.69 mL/min ()?? 10/22/2023 07:02 ? 34_ minutes spent on discharge * Jared SANDERS, Murphy: PERFORM, SIGN, VERIFY Event Display: Patient Education Handout Authored Date: Patient Care team information Care Team Personnel Name: Louis Shirley Position: Reference Physician Member Role: PCP Address: Address: [address] [place] [address]- Care Team Related Persons Name: TY NORTH Address: [address] [place] [address] Name: VANESSA PATEL Address: home [address] [place] [address]
--- OUTSIDE RECORDS SUMMARY | 2024-01-26 07:34 | XMS_ITS | Continuity of Care Document ---
Author Organization [facility] Address [address] [address]- Care Team Providers Care Sole Inker Name Role Phone Nataliia Hinojosa MD Primary Care Physician [phone] [facility] [id number] Date(s): 05/31/21 - 06/07/21 [facility] [address] [address]- Attending Physician: Glenroy Mcghee MD Admitting Physician: Glenroy Mcghee MD Referring Physician: Glenroy Mcghee MD Allergies, Adverse Reactions, Alerts Substance Reaction Severity Status codeine N/V Active Percocet itch Active Percodan itching Active Mold short of breath,sinus issues Active Nuts per testing Active 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
--- OUTSIDE RECORDS SUMMARY | 2024-01-26 07:34 | XMS_ITS | Continuity of Care Document ---
Author Organization [facility] Address [address] [address]- Care Team Providers Care Analysis Analyst Name Role Phone Nataliia Hinojosa MD Primary Care Physician En[place] [facility] [place] Date(s): 07/04/21 - 08/03/21 [facility] [address] [address]- Attending Physician: Admtr, Ar8 Admitting Physician: Admtr, [...] AM, 0 Refills, Maintenance, 04/22/19 10:45:51 EDT, [place] Start Date: 04/22/19 Status: Ordered lansoprazole 30 [...]
--- OUTSIDE RECORDS SUMMARY | 2024-01-26 07:34 | XMS_ITS | Continuity of Care Document ---
Author Organization [facility] Address [address] [place] [address]- Care Team Providers Care Reserve Operator Name Role Phone Nataliia Hinojosa MD Primary Care Physician Encounter [facility] [place] Date(s): 02/28/22 - 03/30/22 [facility] [address] [place] [address] [place] Allergies, Adverse Reactions, Alerts Substance Reaction [...] AM, 0 Refills, Maintenance, 04/22/19 10:45:51 EDT, [place] Start Date: 04/22/19 Status: Ordered lansoprazole 30 [...] EST, Height, 78, kg, 07/18/20 9:20:00 EST, Start Date: 3/15/21 Status: Ordered Vitamin D3 oral tablet = [...]
--- OUTSIDE RECORDS SUMMARY | 2024-01-26 07:34 | XMS_ITS | Continuity of Care Document ---
Author Organization [facility] Address [address] [address]- Care Team Providers Care Broom Maker Name Role Phone Louis Shirley Primary Care Physician [place] [facility] [place] - 07/09/23 [facility] [address] [address]- Attending Physician: Nathaly Sutherland Admitting Physician: Nathaly Sutherland Referring Physician: Nathaly Sutherland Allergies, Adverse Reactions, Alerts Substance Reaction Severity Status codeine N/V Active Percocet itch Active Nuts per testing Active Other Food [...] Solution Start Date: 08/25/17 Status: Ordered Eylea 40 mg/mL intraocular solution [...] AM, 0 Refills, Maintenance, 04/22/19 10:45:51 EDT, [place] Start Date: 04/22/19 Status: Ordered lansoprazole 30 [...] Safety Implantable Status Assigning Authority Unknown Unknown [id number] Unknown 08/05/23 Unknown Unknown Active Un known Procedure Provider Procedure Date Device Type Site Lengthening Gastrocnemius Luca Acosta MD 06/02/22 Un known Foot Right Device Identifier Serial Number Lot or Batch Number Manufacturing Date Expiration Date Distinct Identification Code MRI Safety Implantable Status Assigning Authority Unknown [id number] Unknown 10/11/23 Unknown Unknown Active Unknown Patient Care team information Care Team Personnel Name: Tracy Martinez RN Position: S RN Member Role: Primary Care Nurse Name: Louis Shirley Position: Reference Physician Member Role: PCP Address: Address: [address] [place] [address]- Care Team Related Persons Name: CANTY Address: [address] [place] [address] Name: VANESSA PATEL Address: [address] [place] [address]
--- OUTSIDE RECORDS SUMMARY | 2024-01-26 07:34 | XMS_ITS | Continuity of Care Document ---
Author Organization [facility] Address [address] [address]- Care Team Providers Care Pricing Supervisor Name Role Phone Nataliia Hinojosa MD Primary Care Physician En[facility] [place] [id number] Date(s): 10/10/21 - 10/17/21 [facility] [address] [address]- Attending Physician: Nathaly Sutherland Admitting Physician: Nathaly [...] AM, 0 Refills, Maintenance, 04/22/19 10:45:51 EDT, [place] Start Date: 04/22/19 Status: Ordered lansoprazole 30 [...]
--- OUTSIDE RECORDS SUMMARY | 2024-01-26 07:34 | XMS_ITS | Continuity of Care Document ---
Author Organization [facility] Address [address] [address]- Care Team Providers Care Tax Lawyer Name Role Phone Louis Shirley Primary Care Physician [phone] En[facility] [place] Date(s): 11/27/23 - 12/27/23 [facility] [address] [address]- [place] Allergies, Adverse Reactions, Alerts Substance Reaction [...] Recorded tetanus-diphtheria toxoids (Td) 05/04/21 Recorded Medications CeleBREX 200 mg oral capsule 1 capsule = 200 mg, By Mouth, Daily, # 30 capsule, 0 Refills, Maintenance, 11/20/23 9:26:00 EST, Capsule, Partial fill upon patient request if the prescription is for a schedule II opioid drug. Start Date: 11/20/23 Status: Ordered Eliquis 5 mg oral tablet 1 tablet = 5 mg, By Mouth, 2 times a day, # 60 tablet, 5 Refills, Maintenance, 08/18/23 13:57:00 EST, Tablet, [id number], Partial fill upon patient request if the [...] 0 Refills, Maintenance, 04/22/19 10:45:51 EDT, [place] Start Date: 04/22/19 Status: Ordered lansoprazole 30 [...] 11/21/23 11:44:00 EST, Route to Pharmacy Electronically, [id number], 160, cm, 11/21/23 8:09:00EST, Height, 79, kg, [...] Safety Implantable Status Assigning Authority Unknown Unknown [id number] Unknown 08/05/23 Unknown Unknown Active Un known Procedure Provider Procedure Date Device Type Site Lengthening Gastrocnemius Luca Acosta MD 06/02/22 Un known Foot Right Device Identifier Serial Number Lot or Batch Number Manufacturing Date Expiration Date Distinct Identification Code MRI Safety Implantable Status Assigning Authority Unknown [id number] -1 Unknown 10/11/23 Unknown Unknown Active Unknown Patient Care team information Care Team Personnel Name: Louis Shirley Position: Reference Physician Member Role: PCP Address: Address: [address] [place] [address]- Name: Kalen Christine RN Position: S RN Member Role: Primary Care Nurse Name: Reyna Martinez RN Position: S RN Member Role: Primary Care Nurse Care Team Related Persons Name: TY NORTH Address: [address] [place] [address] Name: VANESSA PATEL Address: [address] [place] [address]
--- OUTSIDE RECORDS SUMMARY | 2024-01-26 07:34 | XMS_ITS | Continuity of Care Document ---
Author Organization [facility] Address [address] [address]- Care Team Providers Care Musculoskeletal Physician Name Role Phone Nataliia Hinojosa MD Primary Care Physician [phone] Encounter [facility] [id number] Date(s): 07/10/21 - 07/17/21 [facility] [address] [address]- Attending Physician: Weston Byrd MD Admitting Physician: Weston Byrd MD Referring Physician: Weston Byrd MD Allergies, Adverse Reactions, Alerts Substance Reaction Severity Status codeine N/V Active Percocet itch Active Wheat psoriasis Active Other Food Allergy [...] AM, 0 Refills, Maintenance, 04/22/19 10:45:51 EDT, [place] Start Date: 04/22/19 Status: Ordered lansoprazole 30 [...]
--- OUTSIDE RECORDS SUMMARY | 2024-01-26 07:35 | XMS_ITS | Continuity of Care Document ---
Author Organization [facility] [place] [address] [address]- Care Team Providers Care Batter Depositor Name Role Phone Nataliia Hinojosa MD Primary Care Physician [place] [facility] [place] - 07/04/22 [facility] [address] [address]- Attending Physician: Nathaly Sutherland Admitting Physician: Nathaly [...] AM, 0 Refills, Maintenance, 04/22/19 10:45:51 EDT, [place] Start Date: 04/22/19 Status: Ordered lansoprazole 30 [...] Safety Implantable Status Assigning Authority Unknown Unknown [id number] Unknown 08/05/23 Unknown Unknown Active Un known Procedure Provider Procedure Date Device Type Site Lengthening Luca Pedro MD 06/02/22 Un known Foot Right Device Identifier Serial Number Lot or Batch Number Manufacturing Date Expiration Date Distinct Identification Code MRI Safety Implantable Status Assigning Authority Unknown [id number] -1 Unknown 1/28/24 Unknown Unknown Active Unknown Patient Care team information Personnel Name: Nataliia Hinojosa MD Address: Address: [address] [place], [place] [address]
--- OUTSIDE RECORDS SUMMARY | 2024-01-26 07:35 | XMS_ITS | Continuity of Care Document ---
Author Organization [facility] Address [address] [address]- Care Team Providers Care Hospice Superintendent Name Role Phone Nataliia Hinojosa MD Primary Care Physician [place] [facility] [place]/21 - 03/29/21 [facility] [address] [address]- Attending Physician: Glenroy Mcghee MD Admitting Physician: [...] AM, 0 Refills, Maintenance, 04/22/19 10:45:51 EDT, [place] Start Date: 04/22/19 Status: Ordered lansoprazole 30 [...]
--- OUTSIDE RECORDS SUMMARY | 2024-01-26 07:35 | XMS_ITS | Continuity of Care Document ---
Author Organization [facility] Address [address] [address]- Care Team Providers Care Wastewater Treatment Plant Supervisor Name Role Phone Nataliia Hinojosa MD Primary Care Physician [phone] [facility] [id number] Date(s): 10/01/22 - 10/08/22 [facility] [address] [address]- Attending Physician: Nathaly Sutherland Admitting Physician: Nathaly [...] AM, 0 Refills, Maintenance, 04/22/19 10:45:51 EDT, [place] Start Date: 04/22/19 Status: Ordered lansoprazole 30 [...] Safety Implantable Status Assigning Authority Unknown Unknown [id number] Unknown 08/05/23 Unknown Unknown Active Un known Procedure Provider Procedure Date Device Type Site Lengthening Gastrocnemius Luca Acosta MD 06/02/22 Un known Foot Right Device Identifier Serial Number Lot or Batch Number Manufacturing Date Expiration Date Distinct Identification Code MRI Safety Implantable Status Assigning Authority Unknown [id number] Unknown 10/11/23 Unknown Unknown Active Unknown Patient Care team information Care Team Personnel Name: Tracy Martinez RN Position: [facility] RN Member Role: Primary Care Nurse Name: Nataliia Hinojosa MD Position: [facility] Physician (General Medicine) Member Role: PCP Address: Address: [address] [place] [id number] Name: Maria Guadalupe Castellon RN Position: [facility] RN Supv Member Role: Primary Care Nurse Care Team Related Persons Name: TY NORTH Address: [address] [place] [address] Name: VANESSA PATEL Address: [address] [place] [address]
--- OUTSIDE RECORDS SUMMARY | 2024-01-26 07:35 | XMS_ITS | Continuity of Care Document ---
Author Organization [facility] Address [address] [address]- Care Team Providers Care Procedures Analyst Name Role Phone Louis Shirley Primary Care Physician [phone] Encounter [place] [facility] R [id number] Date(s): 10/06/23 - 10/13/23 [facility] [address] [address]- Attending Physician: Nathaly Sutherland Admitting Physician: Nathaly [...] 5 Refills, Maintenance, 08/18/23 13:57:00 EST, Tablet, [id number], Partial fill upon patient request if the [...] AM, 0 Refills, Maintenance, 04/22/19 10:45:51 EDT, [place] Start Date: 04/22/19 Status: Ordered lansoprazole 30 [...] Safety Implantable Status Assigning Authority Unknown Unknown [id number] Unknown 08/05/23 Unknown Unknown Active Un known Procedure Provider Procedure Date Device Type Site Lengthening Gastrocnemius Luca Acosta MD 06/02/22 Un known Foot Right Device Identifier Serial Number Lot or Batch Number Manufacturing Date Expiration Date Distinct Identification Code MRI Safety Implantable Status Assigning Authority Unknown [id number] -1 Unknown 10/11/23 Unknown Unknown Active Unknown Patient Care team information Care Team Personnel Name: Louis Shirley Position: Reference Physician Member Role: PCP Address: Address: [address] [place] [address]- Care Team Related Persons Name: TY NORTH Address: [address] [place] [address] Name: VANESSA PATEL Address: [address] [place] [address]
--- OUTSIDE RECORDS SUMMARY | 2024-01-26 07:35 | XMS_ITS | Continuity of Care Document ---
Author Organization [facility] Address [address] [address]- Care Team Providers Care Semiconductor Wafers Saw Operator Name Role Phone Nataliia Hinojosa MD Primary Care Physician [phone] [place] [facility] [place] [id number] Date(s): 11/02/20 - 11/09/20 [facility] [address] [address]- Attending Physician: Nathaly Sutherland Admitting Physician: Nathaly [...] Vaccine Date Status Refusal Reason SARS-CoV-2 (COVID-19) [id number] vaccine 11/05/20 G iven Medications Acetaminophen = [...] AM, 0 Refills, Maintenance, 04/22/19 10:45:51 EDT, [place] Start Date: 04/22/19 Status: Ordered lansoprazole 30 [...]
--- OUTSIDE RECORDS SUMMARY | 2024-01-26 07:35 | XMS_ITS | Continuity of Care Document ---
Author Organization [facility] Address [address] [address]- Care Team Providers Care Vault Service Mechanic Name Role Phone Louis Shirley Primary Care Physician Encounter [facility] ACCT R [id number] Date(s): 12/11/23 - 12/18/23 [facility] [address] [address]- Attending Physician: Nathaly Sutherland Admitting Physician: Nathaly [...] 5 Refills, Maintenance, 08/18/23 13:57:00 EST, Tablet, [facility][id number], Partial fill upon patient request if the [...] AM, 0 Refills, Maintenance, 04/22/19 10:45:51 EDT, [place] Start Date: 04/22/19 Status: Ordered lansoprazole 30 [...] 11/21/23 11:44:00 EST, Route to Pharmacy Electronically, [facility] #[id number], 160, cm, 11/21/23 8:09:00EST, Height, 79, kg, [...] Safety Implantable Status Assigning Authority Unknown Unknown [id number] Unknown 08/05/23 Unknown Unknown Active Un known Procedure Provider Procedure Date Device Type Site Lengthening Gastrocnemius Luca Acosta MD 06/02/22 Un known Foot Right Device Identifier Serial Number Lot or Batch Number Manufacturing Date Expiration Date Distinct Identification Code MRI Safety Implantable Status Assigning Authority Unknown [id number] -1 Unknown 10/11/23 Unknown Unknown Active Unknown Patient Care team information Care Team Personnel Name: Louis Shirley Position: Reference Physician Member Role: PCP Address: Address: [address] [facility] [facility] [address] [place] [id number] Name: Kalen Christine RN Position: S RN Member Role: Primary Care Nurse Name: Reyna Martinez RN Position: S RN Member Role: Primary Care Nurse Care Team Related Persons Name: TY NORTH Address: [address] [place] [address] Name: VANESSA PATEL Address: [address] [place] [address]
--- OUTSIDE RECORDS SUMMARY | 2024-01-26 07:35 | XMS_ITS | Continuity of Care Document ---
Author Organization [facility] Address [address] [address]- Care Team Providers Care Payroll And Benefits Coordinator Name Role Phone Rd Lowery MD Primary Care Physician [phone] [place] [facility] [place]23/19 - 01/20/20 [facility] [address] [address]- [place] Attending Physician: Weston Byrd MD Admitting Physician: Weston Byrd MD Referring Physician: Rd Lowery MD Allergies, Adverse Reactions, Alerts Substance Reaction Severity Status codeine N/V Active Percocet itch Active Other Food Allergy dairy diarrhea Active Egg Allergy abd pain Active Wheat psoriasis Active Percodan itching Active Vicodin C/O - vomiting Active Mold short of breath,sinus issues Active Nuts per testing Active Medications Acetaminophen = 1,000 mg, By Mouth, Daily, 0 Refills, Maintenance, 04/22/19 10:46:54 EDT Start Date: 04/22/19 Status: Ordered BROLUCIZUMAB BROLUCIZUMAB, See Instructions, Refills 0, Maintenance, Pt is in a study for wet macular injection once monthly, right eye, 04/14/19 13:49:18 EDT, [place] Start Date: 04/14/19 Status: Ordered cyanocobalamin 1000 mcg/ml injectable solution [...] AM, 0 Refills, Maintenance, 04/22/19 10:45:51 EDT, [place] Start Date: 04/22/19 Status: Ordered lansoprazole 30 [...]
--- OUTSIDE RECORDS SUMMARY | 2024-01-26 07:35 | XMS_ITS | Continuity of Care Document ---
Author Organization [facility] Address [address] [place] [address]- Care Team Providers Care Senior Group Manager Name Role Phone Nataliia Hinojosa MD Primary Care Physician [place] [facility] [place] [id number] Date(s): 08/27/20 - 09/26/20 [facility] [address] [place] [address]- Attending Physician: AdmLuzmaria mckeon Admitting Physician: Admtr, [...] AM, 0 Refills, Maintenance, 04/22/19 10:45:51 EDT, [place] Start Date: 04/22/19 Status: Ordered lansoprazole 30 [...]
--- OUTSIDE RECORDS SUMMARY | 2024-01-26 07:35 | XMS_ITS | Continuity of Care Document ---
Author Organization [facility] Address [address] [address]- Care Team Providers Care Fitter And Turner Name Role Phone Nataliia Hinojosa MD Primary Care Physician En[place] [facility] [place] [id number] Date(s): 03/26/22 - 04/25/22 [facility] [address] [address]- Attending Physician: Luzmaria Michael Admitting Physician: Admtr, [...] AM, 0 Refills, Maintenance, 04/22/19 10:45:51 EDT, [place] Start Date: 04/22/19 Status: Ordered lansoprazole 30 [...]
--- OUTSIDE RECORDS SUMMARY | 2024-01-26 07:35 | XMS_ITS | Continuity of Care Document ---
Author Organization [facility] Address [address] [address]- Care Team Providers Care Director Validation Name Role Phone Nataliia Hinojosa MD Primary Care Physician En[facility] [place]CT R [id number] Date(s): 10/10/20 - 11/09/20 [facility] [address] [address]- [place] Allergies, Adverse Reactions, Alerts Substance Reaction Severity Status codeine N/V Active Percocet itch Active Percodan itching Active Vicodin C/O - vomiting Active Mold short of breath,sinus issues Active Nuts per testing Active 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
--- OUTSIDE RECORDS SUMMARY | 2024-01-26 07:35 | XMS_ITS | Continuity of Care Document ---
Author Organization [facility] Address [address] [address]- Care Team Providers Care Collection Systems Consultant Name Role Phone Louis Shirley Primary Care Physician Encounter [facility] [place] ACCT R [id number] Date(s): 05/26/23 - 06/02/23 [facility] [address] [address]- Attending Physician: Nathaly Sutherland Admitting Physician: Nathaly [...] AM, 0 Refills, Maintenance, 04/22/19 10:45:51 EDT, [place] Start Date: 04/22/19 Status: Ordered lansoprazole 30 [...] Safety Implantable Status Assigning Authority Unknown Unknown [id number] Unknown 08/05/23 Unknown Unknown Active Un known Procedure Provider Procedure Date Device Type Site Lengthening Gastrocnemius Luca Acosta MD 06/02/22 Un known Foot Right Device Identifier Serial Number Lot or Batch Number Manufacturing Date Expiration Date Distinct Identification Code MRI Safety Implantable Status Assigning Authority Unknown [id number] Unknown 10/11/23 Unknown Unknown Active Unknown Patient Care team information Care Team Personnel Name: Tracy Martinez RN Position: S RN Member Role: Primary Care Nurse Name: Louis Shirley Position: Reference Physician Member Role: PCP Address: Address: [address] [place], [place] [address] Care Team Related Persons Name: TY NORTH Address: home [address] [place] [address] Name: VANESSA PATEL Address: home [address] [place] [address]
--- OUTSIDE RECORDS SUMMARY | 2024-01-26 07:35 | XMS_ITS | Continuity of Care Document ---
Author Organization [facility] Address [address] [address]- Care Team Providers Care Learning Administrator Name Role Phone Nataliia Hinojosa MD Primary Care Physician [place] [facility] [place]10[place]21 - 01/17/21 [facility] [address] [address]- Attending Physician: Glenroy Mcghee MD Admitting Physician: [...] AM, 0 Refills, Maintenance, 04/22/19 10:45:51 EDT, [place] Start Date: 04/22/19 Status: Ordered lansoprazole 30 [...]
--- OUTSIDE RECORDS SUMMARY | 2024-01-26 07:35 | XMS_ITS | Continuity of Care Document ---
Author Organization [facility] Steve lt Address [address] [place] [address]- Care Team Providers Care Commission Agent Livestock Name Role Phone Nataliia Hinojosa MD Primary Care Physician Encounter [facility] [place] ACCT R [id number] Date(s): 01/29/23 - 04/04/23 [facility] Adult [address] [place] [address]- Attending Physician: Meet LAYTON, Le Mccrary Referring Physician: Roge Pete MD Allergies, Adverse Reactions, Alerts Substance Reaction [...] AM, 0 Refills, Maintenance, 04/22/19 10:45:51 EDT, [place] Start Date: 04/22/19 Status: Ordered lansoprazole 30 [...] Safety Implantable Status Assigning Authority Unknown Unknown [id number] Unknown 08/05/23 Unknown Unknown Active Un known Procedure Provider Procedure Date Device Type Site Lengthening Gastrocnemius Luca Acosta MD 06/02/22 Un known Foot Right Device Identifier Serial Number Lot or Batch Number Manufacturing Date Expiration Date Distinct Identification Code MRI Safety Implantable Status Assigning Authority Unknown [id number] -1 Unknown 10/11/23 Unknown Unknown Active Unknown Patient Care team information Care Team Personnel Name: Tracy Martinez RN Position: [facility] RN Member Role: Primary Care Nurse Name: Nataliia Hinojosa MD Position: [facility] Physician - Primary Care Member Role: PCP Address: Address: [address] [place], [place] [address] Name: Maria Guadalupe Castellon RN Position: [facility] RN Supv Member Role: Primary Care Nurse Care Team Related Persons Name: TY NORTH Address: home [address] [place] [address] Name: VANESSA PATEL Address: home [address] [place] [address]
--- OUTSIDE RECORDS SUMMARY | 2024-01-26 07:35 | XMS_ITS | Continuity of Care Document ---
Author Organization [facility] Address [address] [address]- Care Team Providers Care Client Service Associate Name Role Phone Nataliia Hinojosa MD Primary Care Physician [phone] [place] [facility] [place] Date(s[place] 08/29/22 - 09/05/22 [facility] [address] [address]- Attending Physician: Nathaly Sutherland Admitting Physician: Nathaly [...] AM, 0 Refills, Maintenance, 04/22/19 10:45:51 EDT, [place] Start Date: 04/22/19 Status: Ordered lansoprazole 30 [...] Safety Implantable Status Assigning Authority Unknown Unknown [id number] Unknown 08/05/23 Unknown Unknown Active Un known Procedure Provider Procedure Date Device Type Site Lengthening Luca Pedro MD 06/02/22 Un known Foot Right Device Identifier Serial Number Lot or Batch Number Manufacturing Date Expiration Date Distinct Identification Code MRI Safety Implantable Status Assigning Authority Unknown [id number] -1 Unknown 10/11/23 Unknown Unknown Active Unknown Patient Care team information Care Team Personnel Name: Tracy Martinez RN Position: [facility] RN Member Role: Primary Care Nurse Name: Nataliia Hinojosa MD Position: [facility] Physician (General Medicine) Member Role: PCP Address: Address: [address] [place], [place] [address] Name: Maria Guadalupe Castellon RN Position: [facility] RN Supv Member Role: Primary Care Nurse Care Team Related Persons Name: TY NORTH Address: home [address] [place] [address] Name: VANESSA PATEL Address: home [address] [place] [address]
--- OUTSIDE RECORDS SUMMARY | 2024-01-26 07:35 | XMS_ITS | Continuity of Care Document ---
Author Organization [facility] Address [address] [place] [address]- Care Team Providers Care Drivers License Examiner Name Role Phone Nataliia Hinojosa MD Primary Care Physician Encounter [facility] [place] Date(s): 06/02/22 - 06/02/[address] [address]- Discharge Disposition: A-D/C Home Attending Physician: Luca Acosta MD Admitting Physician: Luca Acosta MD Referring Physician: Luca Acosta MD Allergies, Adverse Reactions, Alerts Substance Reaction [...] AM, 0 Refills, Maintenance, 04/22/19 10:45:51 EDT, [place] Start Date: 04/22/19 Status: Ordered lansoprazole 30 [...] Date: 11/26/20 Status: Ordered Problem List Condition Effective Dates Status Health Status Inform ant Arthritis(Confirmed) Active Asthma(Confirmed) Active Atrial fibrillation(Confirmed) Active GERD (gastroesophageal reflu x disease)(Confirmed) Active B12 deficiency anemia(Confirmed) Active Obese class I(Confirmed) Active Vital Signs Most recent to oldest [Reference Range]: 1 2 3 Height 158 cm (06/02/22 7:14 AM) 158 cm (05/30/22 11:38 AM) Weight 82 kg (06/02/22 7:14 AM) 82 kg (05/30/22 11:38 AM) Oxygen Saturation [94-100 %] 96 % (06/02/22 3:30 PM) 100 % (06/02/22 12:30 PM) 100 % (06/02/22 12:15 PM) Pulse Rate [55-90 bpm] 61 bpm (06/02/22 7:14 AM) Body Mass Index [18.5-24.99] 32.85 *>HHI* (06/02/22 7:14 AM) 32.85 *>HHI* (05/30/22 11:38 AM) Blood Pressure [90-138/55-84 mm Hg] 112/58mm Hg (06/02/22 3:30 PM) 113/54mm Hg (06/02/22 12:30 PM) 104/47mm Hg (06/02/22 12:15 PM) Respiratory Rate [16-30 br/min] 18 br/min (06/02/22 3:30 PM) 13 br/min *L* (06/02/22 12:30 PM) 16 br/min (06/02/22 12:15 PM) Temperature [96.8-100.4 DegF] 98.2 DegF (06/02/22 3:54 PM) 97.3 DegF (06/02/22 12:15 PM) 97.5 DegF (06/02/22 9:37 AM) Liters per Minute 2 L/min (06/02/22 11:00 AM) 6 L/min (06/02/22 10:39 AM) 6 L/min (06/02/22 10:36 AM) Mode of Delivery (Oxygen) Room air (06/02/22 3:30 PM) Room air (06/02/22 12:00 PM) Nasal cannula (06/02/22 11:00 AM) Blood pressure sites Arm, right (06/02/22 3:30 PM) Arm, right (06/02/22 11:00 AM) Arm, right (06/02/22 10:45 AM) Temperature Route Temporal (06/02/22 3:54 PM) Temporal (06/02/22 12:15 PM) Temporal (06/02/22 9:37 AM) Dry Weight 80.2 kg (06/02/22 7:14 AM) 82 kg (05/30/22 11:38 AM) Dry Weight Obtained Via Standing scale (06/02/22 7:14 AM) Patient/family stated (05/30/22 11:38 AM) Social History Social History Type Response [...] Safety Implantable Status Assigning Authority Unknown Unknown [id number] Unknown 08/05/23 Unknown Unknown Active Un known Procedure Provider Procedure Date Device Type Site Lengthening Gastrocnemius Luca Acosta MD 06/02/22 Un known Foot Right Device Identifier Serial Number Lot or Batch Number Manufacturing Date Expiration Date Distinct Identification Code MRI Safety Implantable Status Assigning Authority Unknown [id number] -1 Unknown 10/11/23 Unknown Unknown Active Unknown Care Team Personnel Name: Nataliia Hinojosa MD Address: [address] [place] [address]
--- OUTSIDE RECORDS SUMMARY | 2024-01-26 07:36 | XMS_ITS | Continuity of Care Document ---
Author Organization [facility] Address [address] [address]- Care Team Providers Care Shadowgraph Scale Operator Name Role Phone Nataliia Hinojosa MD Primary Care Physician [phone] [place] [facility] [place] R [id number] Date(s): 07/23/20 - 08/22/20 [facility] [address] [address]- [place] Allergies, Adverse Reactions, Alerts Substance Reaction [...] AM, 0 Refills, Maintenance, 04/22/19 10:45:51 EDT, [place] Start Date: 04/22/19 Status: Ordered lansoprazole 30 [...]
--- OUTSIDE RECORDS SUMMARY | 2024-01-26 07:36 | XMS_ITS | Continuity of Care Document ---
Author Organization [facility] Address [address] [address]- Care Team Providers Care Cranberry Grower Name Role Phone Nataliia Hinojosa MD Primary Care Physician Encounter [place] Date(s): 01/17/22 - 01/24/22 [facility] [address] [address]- Attending Physician: Nathaly Sutherland Admitting Physician: Nathaly Sutherland Referring Physician: Nathaly Sutherland Allergies, Adverse Reactions, Alerts Substance Reaction Severity Status codeine N/V Active Percocet itch Active Percodan itching Active Egg Allergy abd pain Active Other Food Allergy dairy diarrhea Active Vicodin C/O - vomiting Active Mold [...] AM, 0 Refills, Maintenance, 04/22/19 10:45:51 EDT, [place] Start Date: 04/22/19 Status: Ordered lansoprazole 30 [...]
--- OUTSIDE RECORDS SUMMARY | 2024-01-26 07:36 | XMS_ITS | Continuity of Care Document ---
Author Organization [facility] Address [address] [address]- Care Team Providers Care Supervisor Capacitor Processing Name Role Phone Nataliia Hinojosa MD Primary Care Physician [id number] Date(s): 02/20/22 - 02/27/22 [facility] [address] [address]- Attending Physician: Nathaly Sutherland Admitting Physician: Nathaly [...] AM, 0 Refills, Maintenance, 04/22/19 10:45:51 EDT, [place] Start Date: 04/22/19 Status: Ordered lansoprazole 30 [...]
--- OUTSIDE RECORDS SUMMARY | 2024-01-26 07:36 | XMS_ITS | Continuity of Care Document ---
Author Organization [facility] Address [address] [address]- Care Team Providers Care Intern Brand Name Role Phone Louis Shirley Primary Care Physician [place] [facility] [place] [id number] Date(s): 01/14/24 - 01/21/24 [facility] [address] [address]- Attending Physician: Nathaly Sutherland Admitting Physician: Nathaly Sutherland Referring Physician: Nathaly Sutherland Allergies, Adverse Reactions, Alerts Substance Reaction Severity Status codeine N/V Active Percocet itch Active Percodan itching Active Other Food Allergy dairy diarrhea Active [...] By Mouth, 2 times a day, # 180 tablet, 3 Refills, Maintenance, 01/05/24 9:13:00 EDT, Tablet, [id number], Partial fill upon patient request if the prescription is fora schedule II opioid drug., 160, cm, 11/21/23 8:09:... Start Date: 01/05/24 Status: Ordered Eylea 40 mg/mL intraocular solution [...] AM, 0 Refills, Maintenance, 04/22/19 10:45:51 EDT, [place] Start Date: 04/22/19 Status: Ordered lansoprazole 30 [...] 11/21/23 11:44:00 EST, Route to Pharmacy Electronically, [facility] #[id number], 160, cm, 11/21/23 8:09:00EST, Height, 79, kg, [...] Safety Implantable Status Assigning Authority Unknown Unknown [id number] Unknown 08/05/23 Unknown Unknown Active Un known Procedure Provider Procedure Date Device Type Site Lengthening Gastrocnemius Luca Acosta MD 06/02/22 Un known Foot Right Device Identifier Serial Number Lot or Batch Number Manufacturing Date Expiration Date Distinct Identification Code MRI Safety Implantable Status Assigning Authority Unknown [id number] -1 Unknown 10/11/23 Unknown Unknown Active Unknown Patient Care team information Care Team Personnel Name: Louis Shirley Position: Reference Physician Member Role: PCP Address: Address: [address] [place] [address]- [place] Name: Kalen Christine RN Position: S RN Member Role: Primary Care Nurse Name: Reyna Martinez RN Position: S RN Member Role: Primary Care Nurse Care Team Related Persons Name: TY NORTH Address: [address] [place] [address] Name: VANESSA PATEL Address: home [address] [place] [address]
--- OUTSIDE RECORDS SUMMARY | 2024-01-26 07:36 | XMS_ITS | Continuity of Care Document ---
Author Organization [facility] Address [address] [address]- Care Team Providers Care Supervisor Specialty Plant Name Role Phone Nataliia Hinojosa MD Primary Care Physician [place] [facility] [place] [facility] [id number] Date(s): 07/04/21 - 07/11/21 [facility] [address] [address]- Attending Physician: Nathaly Sutherland Admitting Physician: Nathaly [...] 0 Refills, Maintenance, 04/22/19 10:45:51 EDT, [place] Start Date: 04/22/19 Status: Ordered lansoprazole 30 [...]
--- OUTSIDE RECORDS SUMMARY | 2024-01-26 07:36 | XMS_ITS | Continuity of Care Document ---
Author Organization [facility] Address [address] [place] [address]- Care Team Providers Care Technician Support Engineer Name Role Phone Louis Shirley Primary Care Physician [phone] Encounter [facility] Date(s): 07/09/23 - 08/08/23 [facility] [address] [place], [place] [address] Attending Physician: AdmLuzmaria mckeon Admitting Physician: Admtr, Ar8 Referring Physician: Admtr, Ar8 Allergies, Adverse Reactions, Alerts Substance Reaction Severity Status codeine N/V Active Percocet itch Active Percodan itching Active Mold short of breath,sinus issues Active Nuts per testing Active Egg Allergy abd pain Active Other Food Allergy dairy diarrhea Active Vicodin C/O - vomiting Active Wheat [...] AM, 0 Refills, Maintenance, 04/22/19 10:45:51 EDT, [place] Start Date: 04/22/19 Status: Ordered lansoprazole 30 [...] Safety Implantable Status Assigning Authority Unknown Unknown [id number] Unknown 08/05/23 Unknown Unknown Active Un known Procedure Provider Procedure Date Device Type Site Lengthening Gastrocnemius Luca Acosta MD 06/02/22 Un known Foot Right Device Identifier Serial Number Lot or Batch Number Manufacturing Date Expiration Date Distinct Identification Code MRI Safety Implantable Status Assigning Authority Unknown [id number] -1 Unknown 10/11/23 Unknown Unknown Active Unknown Patient Care team information Care Team Personnel Name: Tracy Martinez RN Position: S RN Member Role: Primary Care Nurse Name: Louis Shirley Position: Reference Physician Member Role: PCP Address: Address: [address] [place] [address] [place] [address]- Care Team Related Persons Name: TY NORTH Address: home [address] [place] [address] Name: VANESSA PATEL Address: home [address] [place] [address]
--- OUTSIDE RECORDS SUMMARY | 2024-01-26 07:36 | XMS_ITS | Continuity of Care Document ---
Author Organization [facility] Address [address] [address]- Care Team Providers Care High School Physical Education Teacher Name Role Phone Nataliia Hinojosa MD Primary Care Physician [phone] [place] [facility] [place] [facility] [id number] Date(s): 05/27/22 - 06/03/22 [facility] [address] [address]- Attending Physician: Nathaly Sutherland Admitting Physician: Nathaly [...] AM, 0 Refills, Maintenance, 04/22/19 10:45:51 EDT, [place] Start Date: 04/22/19 Status: Ordered lansoprazole 30 [...] Safety Implantable Status Assigning Authority Unknown Unknown [id number] Unknown 08/05/23 Unknown Unknown Active Un known Procedure Provider Procedure Date Device Type Site Lengthening Gastrocnemius Luca Acosta MD 06/02/22 Un known Foot Right Device Identifier Serial Number Lot or Batch Number Manufacturing Date Expiration Date Distinct Identification Code MRI Safety Implantable Status Assigning Authority Unknown [id number] -1 Unknown 10/11/23 Unknown Unknown Active Unknown Care Team Personnel Name: Nataliia Hinojosa MD Address: [address] [place] [id number]
--- OUTSIDE RECORDS SUMMARY | 2024-01-26 07:36 | XMS_ITS | Continuity of Care Document ---
Author Organization [facility] Address [address] [address]- Care Team Providers Care Convict Guard Name Role Phone Nataliia Hinojosa MD Primary Care Physician [phone] [place] [facility] [id number] Date(s): 04/24/22 - 05/01/22 [facility] [address] [address]- Attending Physician: Nathaly Sutherland Admitting Physician: Nathaly [...] AM, 0 Refills, Maintenance, 04/22/19 10:45:51 EDT, [place] Start Date: 04/22/19 Status: Ordered lansoprazole 30 [...]
--- OUTSIDE RECORDS SUMMARY | 2024-01-26 07:36 | XMS_ITS | Continuity of Care Document ---
Author Organization [facility] Address [address] [address]- Care Team Providers Care Bellhop Captain Name Role Phone Louis Shirley Primary Care Physician En[facility] [place] Date(s): 09/02/23 - 10/02/23 [facility] [address] [address]- Attending Physician: Luzmaria Michael Admitting Physician: Admtr, [...] 5 Refills, Maintenance, 08/18/23 13:57:00 EST, Tablet, [id number], Partial fill upon patient request if the [...] AM, 0 Refills, Maintenance, 04/22/19 10:45:51 EDT, [place] Start Date: 04/22/19 Status: Ordered lansoprazole 30 [...] Safety Implantable Status Assigning Authority Unknown Unknown [id number] Unknown 08/05/23 Unknown Unknown Active Un known Procedure Provider Procedure Date Device Type Site Lengthening Gastrocnemius Luca Acosta MD 06/02/22 Un known Foot Right Device Identifier Serial Number Lot or Batch Number Manufacturing Date Expiration Date Distinct Identification Code MRI Safety Implantable Status Assigning Authority Unknown [id number] -1 Unknown 10/11/23 Unknown Unknown Active Unknown Patient Care team information Care Team Personnel Name: Louis Shirley Position: Reference Physician Member Role: PCP Address: Address: [address] [place] [address] [address] [place] [address]- Care Team Related Persons Name: TY NORTH Address: home [address] [place] [address] Name: VANESSA PATEL Address: home [address] [place] [address]
--- OUTSIDE RECORDS SUMMARY | 2024-01-26 07:36 | XMS_ITS | Continuity of Care Document ---
Author Organization [facility] Address [address] [address]- Care Team Providers Care Label Folder Name Role Phone Nataliia Hinojosa MD Primary Care Physician [place] [facility] [place] [id number] Date(s): 12/10/21 - 12/17/21 [facility] [address] [address]- Attending Physician: Nathaly Sutherland Admitting Physician: Nathaly [...] AM, 0 Refills, Maintenance, 04/22/19 10:45:51 EDT, [place] Start Date: 04/22/19 Status: Ordered lansoprazole 30 [...]
--- OUTSIDE RECORDS SUMMARY | 2024-01-26 07:36 | XMS_ITS | Continuity of Care Document ---
Author Organization [facility] Address [address] [address]- Care Team Providers Care Dye Jig Operator Name Role Phone Nataliia Hinojosa MD Primary Care Physician [phone] Encounter [facility] [place] ACCT R [id number] Date(s): 02/15/21 - 03/17/21 [facility] [address] [address]- Attending Physician: Luzmaria Michael Admitting Physician: Admtr, [...] AM, 0 Refills, Maintenance, 04/22/19 10:45:51 EDT, [place] Start Date: 04/22/19 Status: Ordered lansoprazole 30 [...]
--- OUTSIDE RECORDS SUMMARY | 2024-01-26 07:36 | XMS_ITS | Continuity of Care Document ---
Author Organization [facility] Address [address] [address]- Care Team Providers Care House Shorer Name Role Phone Louis Shirley Primary Care Physician En[place] [facility] [place] [id number] Date(s): 01/12/24 - 01/19/24 [facility] [address] [address]- Attending Physician: Nathaly Sutherland Admitting Physician: Nathaly [...] 3 Refills, Maintenance, 01/05/24 9:13:00 EDT, Tablet, [facility][id number], Partial fill upon patient request if the [...] AM, 0 Refills, Maintenance, 04/22/19 10:45:51 EDT, [place] Start Date: 04/22/19 Status: Ordered lansoprazole 30 [...] 11/21/23 11:44:00 EST, Route to Pharmacy Electronically, [facility] #[id number], 160, cm, 11/21/23 8:09:00EST, Height, 79, kg, [...] Safety Implantable Status Assigning Authority Unknown Unknown [id number] Unknown 08/05/23 Unknown Unknown Active Un known Procedure Provider Procedure Date Device Type Site Lengthening Gastrocnemius Luca Acosta MD 06/02/22 Un known Foot Right Device Identifier Serial Number Lot or Batch Number Manufacturing Date Expiration Date Distinct Identification Code MRI Safety Implantable Status Assigning Authority Unknown [id number] -1 Unknown 10/11/23 Unknown Unknown Active Unknown Patient Care team information Care Team Personnel Name: Louis Shirley Position: Reference Physician Member Role: PCP Address: Address: [address] [place] [address]- [place] Name: Kalen Christine RN Position: S RN Member Role: Primary Care Nurse Name: Reyna Martinez RN Position: S RN Member Role: Primary Care Nurse Care Team Related Persons Name: TY NORTH Address: [address] [place] [address] Name: VANESSA PATEL Address: [address] [place] [address]
--- OUTSIDE RECORDS SUMMARY | 2024-01-26 07:36 | XMS_ITS | Continuity of Care Document ---
Author Organization [facility] Address [address] [address]- Care Team Providers Care Pattern Chain Maker Supervisor Name Role Phone Nataliia Hinojosa MD Primary Care Physician [place] [facility] [place] Date(s): 11/08/21 - 12/08/21 [facility] [address] [address]- Attending Physician: Admtr, Enrique8 Admitting Physician: Admtr, Ar8 Referring Physician: Admtr, [...] AM, 0 Refills, Maintenance, 04/22/19 10:45:51 EDT, [place] Start Date: 04/22/19 Status: Ordered lansoprazole 30 [...]
--- OUTSIDE RECORDS SUMMARY | 2024-01-26 07:36 | XMS_ITS | Continuity of Care Document ---
Author Organization [facility] Address [address] [address]- Care Team Providers Care Chemical Treatment Plant Technician Name Role Phone Nataliia Hinojosa MD Primary Care Physician En[place] [facility] [place] [place]CT R [id number] Date(s): 05/02/21 - 05/09/21 [facility] [address] [address]- Attending Physician: Nathaly Sutherland Admitting Physician: Nathaly [...] AM, 0 Refills, Maintenance, 04/22/19 10:45:51 EDT, [place] Start Date: 04/22/19 Status: Ordered lansoprazole 30 [...]
--- OUTSIDE RECORDS SUMMARY | 2024-01-26 07:36 | XMS_ITS | Continuity of Care Document ---
Author Organization [facility] Address [address] [address]- Care Team Providers Care Sample Puller Name Role Phone Nataliia Hinojosa MD Primary Care Physician [phone] Encounter [facility] ACCT R [id number] Date(s): 01/08/23 - 02/07/23 [facility] [address] [address]- Attending Physician: Luzmaria Michael Admitting Physician: AdmtrLuzmaria [...] AM, 0 Refills, Maintenance, 04/22/19 10:45:51 EDT, [place] Start Date: 04/22/19 Status: Ordered lansoprazole 30 [...] Safety Implantable Status Assigning Authority Unknown Unknown [id number] Unknown 08/05/23 Unknown Unknown Active Un known Procedure Provider Procedure Date Device Type Site Lengthening Gastrocnemius Luca Acosta MD 06/02/22 Un known Foot Right Device Identifier Serial Number Lot or Batch Number Manufacturing Date Expiration Date Distinct Identification Code MRI Safety Implantable Status Assigning Authority Unknown [id number] Unknown 10/11/23 Unknown Unknown Active Unknown Patient Care team information Care Team Personnel Name: Tracy Martinez RN Position: [facility] RN Member Role: Primary Care Nurse Name: Nataliia Hinojosa MD Position: [facility] Physician (General Medicine) Member Role: PCP Address: Address: [address] Name: Maria Guadalupe Castellon RN Position: [facility] RN Supv Member Role: Primary Care Nurse Care Team Related Persons Name: TY NORTH Address: home [address] [place] [address] Name: VANESSA PATEL Address: [address] [place] [address]
--- OUTSIDE RECORDS SUMMARY | 2024-01-26 07:36 | XMS_ITS | Continuity of Care Document ---
Author Organization [facility] Address [address] [place] [address]- Care Team Providers Care Integration Director Name Role Phone Louis Shirley Primary Care Physician [place] [facility]/19/23 - 11/19/[address] [address]- Attending Physician: Weston Byrd MD Admitting Physician: [...] 5 Refills, Maintenance, 08/18/23 13:57:00 EST, Tablet, [id number], Partial fill upon patient request if the [...] AM, 0 Refills, Maintenance, 04/22/19 10:45:51 EDT, [place] Start Date: 04/22/19 Status: Ordered lansoprazole 30 [...] Safety Implantable Status Assigning Authority Unknown Unknown [id number] Unknown 08/05/23 Unknown Unknown Active Un known Procedure Provider Procedure Date Device Type Site Lengthening Gastrocnemius Luca Acosta MD 06/02/22 Un known Foot Right Device Identifier Serial Number Lot or Batch Number Manufacturing Date Expiration Date Distinct Identification Code MRI Safety Implantable Status Assigning Authority Unknown [id number] Unknown 10/11/23 Unknown Unknown Active Unknown Patient Care team information Care Team Personnel Name: Louis Shirley Position: Reference Physician Member Role: PCP Address: Address: [address] [place] [address]- Care Team Related Persons Name: TY NORTH Address: home [address] [place] [address] Name: VANESSA PATEL Address: home [address] [place] [address]
--- OUTSIDE RECORDS SUMMARY | 2024-01-26 07:36 | XMS_ITS | Continuity of Care Document ---
Author Organization [facility] Address [address] [address]- Care Team Providers Care Broom Bundler Name Role Phone Nataliia Hinojosa MD Primary Care Physician [place] [facility] 07/16/21 - 08/15/21 [facility] [address] [address]- [place] Allergies, Adverse Reactions, Alerts Substance Reaction [...] AM, 0 Refills, Maintenance, 04/22/19 10:45:51 EDT, [place] Start Date: 04/22/19 Status: Ordered lansoprazole 30 [...]
--- OUTSIDE RECORDS SUMMARY | 2024-01-26 07:36 | XMS_ITS | Continuity of Care Document ---
Author Organization [facility] ter Address [address] [place] [address]- Care Team Providers Care Pay Station Collector Name Role Phone Louis Shirley Primary Care Physician [place] [facility] [place](s[place] 08/18/23 - 08/18/[address] [address]- Discharge Disposition: A-D/C Home Attending Physician: Weston [...] itching Active Vicodin C/O - vomiting Active Immunizations [...] 5 Refills, Maintenance, 08/18/23 13:57:00 EST, Tablet, [facility] #[id number], Partial fill upon patient request if the [...] AM, 0 Refills, Maintenance, 04/22/19 10:45:51 EDT, [place] Start Date: 04/22/19 Status: Ordered lansoprazole 30 [...] oldest [Reference Range]: 1 2 3 Height 157 cm (08/18/23 7:07 AM) Weight 80.1 kg (08/18/23 7:07 AM) Oxygen Saturation [94-100 %] 95 % (08/18/23 1:45 PM) 98 % (08/18/23 12:45 PM) 96 % (08/18/23 11:45 AM) Pulse Rate [55-90 bpm] 67 bpm (08/18/23 7:07 AM) Body Mass Index [18.5-24.99 kg/m2] 32.5 kg/m2 *>HHI* (08/18/23 7:07 AM) Blood Pressure [90-138/55-84 mm Hg] 137/68mm Hg (08/18/23 1:45 PM) 149/83mm Hg *H* (08/18/23 12:45 PM) 132/68mm Hg (08/18/23 11:45 AM) Respiratory Rate [16-30 br/min] 22 br/min (08/18/23 1:45 PM) 22 br/min (08/18/23 12:45 PM) 15 br/min *L* (08/18/23 11:45 AM) Temperature [96.8-100.4 DegF] 97.8 DegF (08/18/23 7:07 AM) Mode of Delivery (Oxygen) Room air (08/18/23 1:45 PM) Room air (08/18/23 12:45 PM) Room air (08/18/23 11:45 AM) Blood pressure sites Arm, right (08/18/23 1:45 PM) Arm, right (08/18/23 12:45 PM) Arm, right (08/18/23 11:45 AM) Temperature Route Temporal (08/18/23 7:07 AM) Dry Weight 80.1 kg (08/18/23 7:07 AM) Weight Obtained Via Standing scale (08/18/23 7:07 AM) Dry Weight Obtained Via Standing scale (08/18/23 7:07 AM) Social History Social History Type Response [...] Safety Implantable Status Assigning Authority Unknown Unknown [id number] Unknown 08/05/23 Unknown Unknown Active Un known Procedure Provider Procedure Date Device Type Site Lengthening Gastrocnemius Luca Acosta MD 06/02/22 Un known Foot Right Device Identifier Serial Number Lot or Batch Number Manufacturing Date Expiration Date Distinct Identification Code MRI Safety Implantable Status Assigning Authority Unknown [id number] Unknown 10/11/23 Unknown Unknown Active Unknown Note * Event Display: Hemodynamic Procedure Report Authored Date: [id number] * Linda Cannon: PERFORM Event Display: Discharge/Transfer Note Hospital Authored Date: [id number] Nursing Discharge Note Entered On: 08/18/2023 14:37 EST Performed On: 08/18/2023 14:36 EST by Linda Cannon Nursing Discharge Note 2 Discharge Time : 08/18/2023 14:07 EST Discharge Level of Care at Discharge : Home/Shelter/Foster Care Patient Left Unit Via : Wheelchair Patient Accompanied Off Unit with : Responsible adult DC Instructions Provided & Signed by Pt : Yes Patient Understands D/C Instructions : Yes Patient Instructions Discharge Signed : Yes Discharge Comments : d/c papers reviewed and signed. IV discontinued. pt left unit in wheelchair with PCT Did Pt have Specialty Bed or Wound Vac : No Linda Cannon - 08/18/2023 14:36 EST * Linda Cannon: PERFORM, MODIFY Event Display: Patient Education/Instruction Authored Date: [id number] Inpatient Adult Discharge Instructions [address] [address] Name: STEFANIE PATEL : 1955 Visit: 08/18/2023 06:21:00 Current Date: 08/18/2023 11:53 Account: [id number] Inpatient Adult Discharge Instructions We would like [...] and their families. Surveys are administered by [employer] ?? If further treatment with your primary care physician or another doctor is recommended, it is important for you to keep the appointment. Call your primary care physician or return to the Emergency Department immediately if your condition worsens, fails to improve, or new symptoms develop. If you need to find a doctor, you can call [facility] [employer] for a referral at [phone] or toll free at [phone] or log in to [email or web address] ?? [facility], in keeping with [facility] guidance, no longer requires face masks for [...] a health care lori of your choosing. [employer] is a website that allows you to securely view your medical information including your hospital discharge summary, office visit summaries, medications and follow-up visits. You can also request appointments, renew medications, and request access to your medical information using a health care lori of your choosing, or just ask a question. You can enroll at [email or web address] or register during your next office visit. You have been discharged from [facility], Patient Care Unit: CARE. If you have any questions regarding these instructions after you leave, please call us and we will be happy to assist you. [facility] Your Care Team Attending Physician Rochelle SANDERS, Weston John Reason for Admission SVT ABLATION SVT HV2 6AMARR Tests Performed Below is a partial list of the tests performed during your hospitalization. You may have had other tests and procedures not included in this list. Please discuss all test results with your provider. Primary Care Provider Louis Shirley Advance Directive Health Care Proxy on File No Discharge Vitals Temperature: 97.8 DegF Height: 157 cm Pulse Rate: 67 bpm Weight: 80.1 kg Respiratory Rate:??13 br/min??Low Body Mass Index:??32.5 kg/m2??Critical Systolic Blood Pressure:??142 mm Hg??High Body surface area: 1.87 Diastolic Blood Pressure: 73 mm Hg ?? Oxygen Saturation: 98 % ?? Studies Pending All tests and labs ordered during this hospital stay have been completed unless listed below. Please discuss all pending results with your provider listed above in these instructions. ?? No incomplete studies found What to do next Instructions From Your Doctor Discharge Orders Instructions from your Care Team if you have questions or concerns after discharge, you can call the CARE unit at [phone] Scheduled Follow-Up Appointments Thursday 2:20 PM EST ?? Where: [facility] Status: Pending You Need to Schedule the Following Appointments Follow Up with??Rochelle SANDERS, Weston John When:??Within 1 to 2 weeks Where: [address] [facility] [address]- Discharge Medications STEFANIE PATEL :1955 Visit Date:08/18/2023 Medications: Please continue your medications until treatment is completed or stopped by your provider. Medications not listed below should be discontinued. Discuss any questions related to medications with your provider. What How Much When Instructions Next Dose New apixaban (Eliquis 5 mg oral tablet) 1 tab(s) Oral Twice a day Refills: 5 Pickup at [facility] #[id number] start tomorrow AM Unchanged Acetaminophen 1,000 Milligram Oral Daily as needed for Pain , Mild continue taking as prescribed Unchanged Acetaminophen (acetaminophen 500 mg oral capsule) See instructions 2 capsule By Mouth Every 8 hours, As needed for for fever ?? Unchanged aflibercept ophthalmic (Eylea 40 mg/ mL intraocular solution) 2 Milligram continue taking as prescribed Unchanged Albuterol (ProAir HFA 90 mcg/ inh inhalation aerosol with adapter) 2 puff(s) Inhalation Every 4 hours as needed for for wheezing continue taking as prescribed Unchanged Aspirin (aspirin 325 mg oral capsule) 1 capsule Oral Daily continue taking as prescribed Unchanged Calcium And Vitamin D Combination (Calcium 500+D) 1 tab(s) Twice a day continue taking as prescribed Unchanged Celecoxib (CeleBREX 200 mg oral capsule) 1 capsule Oral Twice a day continue taking as prescribed Unchanged Cyanocobalamin (cyanocobalamin 1000 mcg/ ml injectable solution) See instructions 1 mL Intramuscular twice a month ?? continue taking as prescribed Unchanged denosumab (Prolia) 60 Milligram Subcutaneous Infusion Every 6 months continue taking as prescribed Unchanged Flax (Flax Seed Oil) continue taking as prescribed Unchanged Flecainide (flecainide 50 mg oral tablet) 1 tab(s) Oral Every 12 hours Unchanged Fluticasone Nasal (Flonase 50 mcg/ inh nasal spray) 1 spray(s) Nares, Both Daily in the morning continue taking as prescribed Unchanged Hydromorphone (Dilaudid 2 mg oral tablet) See instructions 1 tablet By Mouth Every 4-6 hours, As needed for as needed for pain ?? continue taking as prescribed Unchanged Lansoprazole (lansoprazole 30 mg oral enteric coated capsule) 1 capsule Oral Daily continue taking as prescribed Unchanged Metoprolol (Toprol XL 25 mg oral tablet, extended release) 0.5 tab(s) Oral Daily continue taking as prescribed Unchanged Montelukast (Singulair 10 mg oral tablet) 1 tab(s) Oral Daily continue taking as prescribed Unchanged Pt.'s Own Meds probiotic 1 tab Oral Daily continue taking as prescribed Pharmacy Information [facility] #[id number]: [address] [place], [place] [id number] [phone] Test Results Below is a partial list of the most recent Laboratory test results done prior to this discharge. You may have had other tests and procedures not included in this list. Please discuss all test resultswith your provider. Allergies (NKA means No Known Allergies) Egg Allergy??(abd pain) Mold??(short of breath,sinus issues) Nuts??(per testing) Other Food Allergy??(dairy diarrhea) Percocet??(itch) Percodan??(itching) Vicodin??(C/O - vomiting) Wheat??(psoriasis) codeine??(N/V) Problems Active Problems??(6) Arthritis?? Asthma?? Atrial fibrillation?? B12 deficiency anemia?? GERD (gastroesophageal reflux disease)?? Obese class I?? Education Materials Below is the list of Educational Leaflet Providered with your Discharge Instructions. M-Groin I Discharge Instructions?? Anesthesia: Monitored Anesthesia Care (MAC)?? Valuables and Belongings I fully understand and agree that [facility] accepts no responsibility for all my personal [...] encouraged to send valuables and belongings home. ?? Review of Valuable and Belonging List: With patient Date for Pt to Sign Valuables/Belongings: 08/18/23 10:11:00 ?? Other Discharge Information ? Pulmonary Rehab Status?? Pulmonary Rehab Discharge Status?? Respiratory Rate:??13 br/min??Low ? Common Emergency Awareness Tips IS IT [...] are strongly encouraged to quit. Please call [facility] [employer] at [phone] or [phone] ([phone]) or log in to [email or web address] for referrals to smoking cessation programs. ?? 588 Suicide & Crisis Lifeline is available 06/04 if you or someone you know needs to find a reason to keep living. By calling 657 you'll be connected to a skilled, trained counselor at a crisis center in your area. INPATIENT DISCHARGE INSTRUCTIONS SIGNATURE PAGE STEFANIE PATEL Location:[facility] Registration Date and Time:08/18/2023 06:21 EST Primary Care Physician: Louis Shirley, Attending Physician: Rochelle SANDERS, Weston John, I JORGE STEFANIE, have received the above patient education materials/instructions and have verbalized understanding. If ambulance or transport services are being used I further acknowledge being given a choice of service. ?? If you need to contact me, please call me at this number: . Patient/Rn Stars Name: Patient/Rn Stars Signature: Relationship to Patient: Witness Name/Signature: Date: * Linda Cannon: PERFORM Event Display: Patient Education Leaflets Authored Date: [id number] M-Groin I Discharge Instructions ?? 179 Groin Discharge Instructions No heavy lifting over 10 pounds (for example: gallon of milk) 1 week following the procedure; gradually increase normal activity over the next 5 days. Avoid straining/pushing when moving bowels You may feel like resting more after your procedure. Slowly start to do more each day. Rest when you feel it is needed. Make sure to look at your procedure site every day until it is completely healed. You may see bruising at the puncture site and that is common after the procedure. You may shower the day after your procedure. Remove the band aid before showering. Wash the area gently with soap and water. Leave open to air. Do not take tub baths, hot tubs, soaking of the puncture site or swimming for 1 week. Do not put any creams, powders or lotions on your puncture site You may resume sexual activity the day after your procedure; avoid bending the hip on ?? the side of the groin puncture excessively and any strenuous positions for 1 week. Call your doctor if your procedure site develops any of the following: ??? New onset severe pain ??? New onset lump or swelling ??? Bleeding that does not stop with lightpressure ? * Linda Cannon: PERFORM Event Display: Patient Education Leaflets Authored Date: [id number] Anesthesia: Monitored Anesthesia Care (MAC) ?? [address] Anesthesia: Monitored Anesthesia Care (MAC) You???re going to have surgery. During surgery, you???ll be given medicine called anesthesia. This will keep you comfortable and pain-free. Your surgeon will use monitored anesthesia care (MAC). Thissheet tells you more about this type of anesthesia. What is monitored anesthesia care? MAC keeps you very drowsy during surgery. You may be awake, but you likely won't remember much. Andyou won???t feel pain. With MAC, medicines are given through an IV (intravenous) line into a vein??in your arm or hand. A local anesthetic will also be injected into the skin and muscle around the surgical site to numb it. The anesthesia provider monitors you during the procedure. They check your heart rate and rhythm, blood pressure, and blood oxygen level. ?? What to expect during your procedure You'll likely have: ??? A pulse oximeter. This is a small device put on the end of your finger. This measures your blood oxygen level. ??? Electrocardiography leads (electrodes). These are sticky pads put on your chest. They attach to wires. These lead to a device that records your heart rate and rhythm. ??? Medicines given through an IV. These relax you and prevent pain. You may be awake or sleep lightly. If you have local anesthetic, it's injected directly into your skin. ??? A face mask. This is to give you oxygen. This may be done if needed. ?? Possible risks MAC has some risks. These include: ??? Breathing problems ??? Upset stomach (nausea) and vomiting ??? Allergic reaction to the anesthetic? Anesthesia safety Tips for anesthesia safety include:? Follow all instructions for not eating or drinking before your procedure. ??? Tell your healthcare provider all prescription and urir-pon-lzsubqf medicines you take. Tell them if you use any anti-inflammatory medicine or blood thinners. This includes aspirin. Tell them if you take any vitamins,herbs, or other supplements. ??? Have an adult family member or friend drive you home after the procedure. For the first 24 hours after your surgery: ??? Don't drive or use heavy equipment. ??? Don't make important decisions or sign documents. ??? Don't drink alcohol. ??? Have someone stay with you, if possible. They can watch for problems and help keep you safe. ?? Last Reviewed Date: 2021 ?? 5851-4441 [employer]. All rights reserved. This information is not intended as a substitute for professional medical care. Always follow your healthcare professional's instructions. ?? History and physical note * Event Display: History and Physical Hospital Authored Date: EKG study * Event Display: ECG 12-Lead Authored Date: Please click on pdf link to open report * Event Display: ECG 12-Lead Authored Date: Ventricular Rate: 65 BPM Atrial Rate: 65 BPM P-R Interval: 136 ms QRS Duration: 82 ms Q-T Interval: 402 ms QTC Calculation(Bazett): 418 ms P [place]: 55 degrees R [place]: -12 degrees T [place]: -35 degrees Normal sinus rhythm Nonspecific ST and T wave abnormality Abnormal ECG When compared with ECG of 12-AUG-2023 13:07, No significant change was found Confirmed by SAMANTHA WELLS ([id number]) on 08/18/2023 3:17:32 PM [place]: SAMANTHA WELLS Patient Care team information Care Team Personnel Name: Tracy Martinez RN Position: S RN Member Role: Primary Care Nurse Name: Louis Shirley Position: Reference Physician Member Role: PCP Address: Address: [address] [place], [place] [address] Care Team Related Persons Name: TY NORTH Address: [address] [place] [address] Name: VANESSA PATEL Address: home [address] [place] [address]
--- OUTSIDE RECORDS SUMMARY | 2024-01-26 07:36 | XMS_ITS | Continuity of Care Document ---
Author Organization [facility] Address [address] [address]- Care Team Providers Care Engineer Third Assistant Name Role Phone Louis Shirley Primary Care Physician [place] [facility] [id number] Date(s): 10/22/23 - 11/21/23 [facility] [address] [address] [place] Allergies, Adverse Reactions, Alerts Substance Reaction [...] 5 Refills, Maintenance, 08/18/23 13:57:00 EST, Tablet, [facility] #[id number], Partial fill upon patient request if the [...] AM, 0 Refills, Maintenance, 04/22/19 10:45:51 EDT, [place] Start Date: 04/22/19 Status: Ordered lansoprazole 30 [...] 11/21/23 11:44:00 EST, Route to Pharmacy Electronically, [facility] #[id number], 160, cm, 11/21/23 8:09:00EST, Height, 79, kg, [...] Safety Implantable Status Assigning Authority Unknown Unknown [id number] Unknown 08/05/23 Unknown Unknown Active Un known Procedure Provider Procedure Date Device Type Site Lengthening Gastrocnemius Luca Acosta MD 06/02/22 Un known Foot Right Device Identifier Serial Number Lot or Batch Number Manufacturing Date Expiration Date Distinct Identification Code MRI Safety Implantable Status Assigning Authority Unknown [id number] -1 Unknown 10/11/23 Unknown Unknown Active Unknown Patient Care team information Care Team Personnel Name: Louis Shirley Position: Reference Physician Member Role: PCP Address: Address: [address] [place] [address]- Name: Kalen Christine RN Position: S RN Member Role: Primary Care Nurse Name: Reyna Martinez RN Position: S RN Member Role: Primary Care Nurse Care Team Related Persons Name: TY NORTH Address: home [address] [place] [address] Name: VANESSA PATEL Address: [address] [place] [address]
--- OUTSIDE RECORDS SUMMARY | 2024-01-26 07:36 | XMS_ITS | Continuity of Care Document ---
Author Organization [facility] Address [address] [address]- Care Team Providers Care Financial Services Agent Name Role Phone Rd Lowery MD Primary Care Physician [place] [facility] [place](s[place] 11/09/19 - 03/02/20 [facility] [address] [address]- [place] Attending Physician: Weston Byrd MD [...] AM, 0 Refills, Maintenance, 04/22/19 10:45:51 EDT, [place] Start Date: 04/22/19 Status: Ordered lansoprazole 30 [...]
--- OUTSIDE RECORDS SUMMARY | 2024-01-26 07:36 | XMS_ITS | Continuity of Care Document ---
Author Organization [facility] Address [address] [place] [address]- Care Team Providers Care Lurer Name Role Phone Nataliia Hinojosa MD Primary Care Physician [place] [facility] [place] Date(s): 12/17/20 - 01/16/21 [facility] [address] [place] [id number] Allergies, Adverse Reactions, Alerts Substance Reaction Severity [...] AM, 0 Refills, Maintenance, 04/22/19 10:45:51 EDT, [place] Start Date: 04/22/19 Status: Ordered lansoprazole 30 [...]
--- OUTSIDE RECORDS SUMMARY | 2024-01-26 07:36 | XMS_ITS | Continuity of Care Document ---
Author Organization [facility] Address [address] [address]- Care Team Providers Care Yarn Finisher Name Role Phone Beverley SANDERS, Rd Marmolejo Primary Care Physician [phone] Encounter [facility] [place] Date(s): 02/22/20 - 03/23/20 [facility] [address] [address]- [place] Attending Physician: Luzmaria Michael Admitting Physician: Luzmaria Michael Referring Physician: AdmtrLuzmaria Allergies, Adverse Reactions, Alerts Substance Reaction Severity [...] AM, 0 Refills, Maintenance, 04/22/19 10:45:51 EDT, [place] Start Date: 04/22/19 Status: Ordered lansoprazole 30 [...]
--- OUTSIDE RECORDS SUMMARY | 2024-01-26 07:36 | XMS_ITS | Continuity of Care Document ---
Author Organization [facility] Address [address] [address]- Care Team Providers Care Parking Lot Signaler Name Role Phone Louis Shirley Primary Care Physician [phone] Encounter [facility] [place] ACCT R [id number] Date(s): 11/24/23 - 12/24/23 [facility] [address] [address]- [place] Allergies, Adverse Reactions, Alerts Substance Reaction [...] 5 Refills, Maintenance, 08/18/23 13:57:00 EST, Tablet, [id number], Partial fill upon patient request if the [...] 0 Refills, Maintenance, 04/22/19 10:45:51 EDT, [place] Start Date: 04/22/19 Status: Ordered lansoprazole 30 [...] 11/21/23 11:44:00 EST, Route to Pharmacy Electronically, [facility][id number], 160, cm, 11/21/23 8:09:00EST, Height, 79, kg, [...] Safety Implantable Status Assigning Authority Unknown Unknown [id number] Unknown 08/05/23 Unknown Unknown Active Un known Procedure Provider Procedure Date Device Type Site Lengthening Gastrocnemius Luca Acosta MD 06/02/22 Un known Foot Right Device Identifier Serial Number Lot or Batch Number Manufacturing Date Expiration Date Distinct Identification Code MRI Safety Implantable Status Assigning Authority Unknown [id number] Unknown 10/11/23 Unknown Unknown Active Unknown Patient Care team information Care Team Personnel Name: Louis Shirley Position: Reference Physician Member Role: PCP Address: Address: [address] [place] [address]- Name: Kalen Christine RN Position: S RN Member Role: Primary Care Nurse Name: Reyna Martinez RN Position: S RN Member Role: Primary Care Nurse Care Team Related Persons Name: TY NORTH Address: home [address] [place] [address] Name: VANESSA PATEL Address: home [address] [place] [address]
--- OUTSIDE RECORDS SUMMARY | 2024-01-26 07:36 | XMS_ITS | Continuity of Care Document ---
Author Organization [facility] Steve lt Address [address] [place] [address]- Care Team Providers Care Operating Room Technician Name Role Phone Nataliia Hinojosa MD Primary Care Physician Encounter [facility] Date(s): 01/28/23 - 02/27/23 [facility] Adult [address] [place] [address]- Allergies, Adverse Reactions, Alerts Substance Reaction Severity [...] Safety Implantable Status Assigning Authority Unknown Unknown [id number] Unknown 08/05/23 Unknown Unknown Active Un known Procedure Provider Procedure Date Device Type Site Lengthening Gastrocnemius Luca Acosta MD 06/02/22 Un known Foot Right Device Identifier Serial Number Lot or Batch Number Manufacturing Date Expiration Date Distinct Identification Code MRI Safety Implantable Status Assigning Authority Unknown [id number] -1 Unknown 10/11/23 Unknown Unknown Active Unknown Patient Care team information Care Team Personnel Name: Tracy Martinez RN Position: [facility] RN Member Role: Primary Care Nurse Name: Nataliia Hinojosa MD Position: [facility] Physician - Primary Care Member Role: PCP Address: Address: [address] [place] [address]- Name: Maria Guadalupe Castellon RN Position: [facility] RN Supv Member Role: Primary Care Nurse Care Team Related Persons Name: TY NORTH Address: home [address] [place] [address] Name: VANESSA PATEL Address: home [address] [place] [address]
--- OUTSIDE RECORDS SUMMARY | 2024-01-26 07:36 | XMS_ITS | Continuity of Care Document ---
Author Organization [facility] Address [address] [address]- Care Team Providers Care Casino Floor Walker Name Role Phone Nataliia Hinojosa MD Primary Care Physician Encounter [facility] [id number] Date(s): 09/27/20 - 10/04/20 [facility] [address] [address]- Attending Physician: Nathaly Sutherland Admitting Physician: Nathaly [...] AM, 0 Refills, Maintenance, 04/22/19 10:45:51 EDT, [place] Start Date: 04/22/19 Status: Ordered lansoprazole 30 [...]
--- OUTSIDE RECORDS SUMMARY | 2024-01-26 07:36 | XMS_ITS | Continuity of Care Document ---
Author Organization [facility] Address [address] [address]- Care Team Providers Care Client Executive Name Role Phone Louis Shirley Primary Care Physician [phone] [place] [facility] [place] Date(s): 10/21/23 - 11/20/23 [facility] [address] [address]- [place] Allergies, Adverse Reactions, Alerts Substance Reaction [...] 5 Refills, Maintenance, 08/18/23 13:57:00 EST, Tablet, [facility][id number], Partial fill upon patient request if the [...] opioid drug. Start Date: 11/20/23 Status: Ordered flecainide 50 mg oral tablet [...] AM, 0 Refills, Maintenance, 04/22/19 10:45:51 EDT, [place] Start Date: 04/22/19 Status: Ordered lansoprazole 30 [...] Safety Implantable Status Assigning Authority Unknown Unknown [id number] Unknown 08/05/23 Unknown Unknown Active Un known Procedure Provider Procedure Date Device Type Site Lengthening Gastrocnemius Luca Acosta MD 06/02/22 Un known Foot Right Device Identifier Serial Number Lot or Batch Number Manufacturing Date Expiration Date Distinct Identification Code MRI Safety Implantable Status Assigning Authority Unknown [id number] -1 Unknown 10/11/23 Unknown Unknown Active Unknown Patient Care team information Care Team Personnel Name: Louis Shirley Position: Reference Physician Member Role: PCP Address: Address: [address] [place] [address]- [place] Name: Kalen Christine RN Position: [facility] RN Member Role: Primary Care Nurse Care Team Related Persons Name: TY NORTH Address: home [address] [place] [address] Name: VANESSA PATEL Address: home [address] [place] [address]
--- OUTSIDE RECORDS SUMMARY | 2024-01-26 07:36 | XMS_ITS | Continuity of Care Document ---
Author Organization [facility] Address [address] [address]- Care Team Providers Care Commercial Truck Driver Name Role Phone Nataliia Hinojosa MD Primary Care Physician Encounter [facility] ACCT R [id number] Date(s): 08/15/20 - 09/14/20 [facility] [address] [address]- [place] Allergies, Adverse Reactions, Alerts Substance Reaction [...] AM, 0 Refills, Maintenance, 04/22/19 10:45:51 EDT, [place] Start Date: 04/22/19 Status: Ordered lansoprazole 30 [...]
--- OUTSIDE RECORDS SUMMARY | 2024-01-26 07:36 | XMS_ITS | Continuity of Care Document ---
Author Organization [facility] Address [address] [address]- Care Team Providers Care Director Dietetics Department Name Role Phone Nataliia Hinojosa MD Primary Care Physician [place] [facility] [place] [id number] Date(s): 11/06/22 - 12/06/22 [facility] [address] [address]- Attending Physician: Luzmaria Michael Admitting Physician: AdmtrLuzmaria [...] 0 Refills, Maintenance, 04/22/19 10:45:51 EDT, [place] Start Date: 04/22/19 Status: Ordered lansoprazole 30 [...] Safety Implantable Status Assigning Authority Unknown Unknown [id number] Unknown 08/05/23 Unknown Unknown Active Un known Procedure Provider Procedure Date Device Type Site Lengthening Gastrocnemius Luca Acosta MD 06/02/22 Un known Foot Right Device Identifier Serial Number Lot or Batch Number Manufacturing Date Expiration Date Distinct Identification Code MRI Safety Implantable Status Assigning Authority Unknown [id number] -1 Unknown 10/11/23 Unknown Unknown Active Unknown Patient Care team information Care Team Personnel Name: Tracy Martinez RN Position: [facility] RN Member Role: Primary Care Nurse Name: Nataliia Hinojosa MD Position: [facility] Physician (General Medicine) Member Role: PCP Address: Address: [address] Name: Maria Guadalupe Castellon RN Position: [facility] RN Supv Member Role: Primary Care Nurse Care Team Related Persons Name: TY NORTH Address: home [address] [place] [address] Name: VANESSA PATEL Address: home [address] [place] [address]
--- OUTSIDE RECORDS SUMMARY | 2024-01-26 07:36 | XMS_ITS | Continuity of Care Document ---
Author Organization [facility] Address [address] [address]- Care Team Providers Care Scratch Finisher Name Role Phone Nataliia Hinojosa MD Primary Care Physician [place] [facility] [place] [facility] [id number] Date(s): 11/04/22 - 11/11/22 [facility] [address] [address]- Attending Physician: Nathaly Sutherland Admitting Physician: Nathaly [...] AM, 0 Refills, Maintenance, 04/22/19 10:45:51 EDT, [place] Start Date: 04/22/19 Status: Ordered lansoprazole 30 [...] Safety Implantable Status Assigning Authority Unknown Unknown [id number] Unknown 08/05/23 Unknown Unknown Active Un known Procedure Provider Procedure Date Device Type Site Lengthening Gastrocnemius Luca Acosta MD 06/02/22 Un known Foot Right Device Identifier Serial Number Lot or Batch Number Manufacturing Date Expiration Date Distinct Identification Code MRI Safety Implantable Status Assigning Authority Unknown [id number] -1 Unknown 10/11/23 Unknown Unknown Active Unknown Patient Care team information Care Team Personnel Name: Tracy Martinez RN Position: [facility] RN Member Role: Primary Care Nurse Name: Nataliia Hinojosa MD Position: [facility] Physician (General Medicine) Member Role: PCP Address: Address: [address] [place] [address] Name: Maria Guadalupe Castellon RN Position: [facility] RN Supv Member Role: Primary Care Nurse Care Team Related Persons Name: TY NORTH Address: home [address] [place] [address] Name: VANESSA PATEL Address: home [address] [place] [address]
--- OUTSIDE RECORDS SUMMARY | 2024-01-26 07:36 | XMS_ITS | Continuity of Care Document ---
Author Organization [facility] Address [address] [address]- Care Team Providers Care Wound Treatment Rn Name Role Phone Nataliia Hinojosa MD Primary Care Physician Encounter [facility] ACCT R [id number] Date(s): 09/05/21 - 09/12/21 [facility] [address] [address]- Attending Physician: Nathaly Sutherland Admitting Physician: Nathaly [...] AM, 0 Refills, Maintenance, 04/22/19 10:45:51 EDT, [place] Start Date: 04/22/19 Status: Ordered lansoprazole 30 [...]
--- OUTSIDE RECORDS SUMMARY | 2024-01-26 07:37 | XMS_ITS | Continuity of Care Document ---
Author Organization [facility] Address [address] [address]- Care Team Providers Care Field Logistics Coordinator Name Role Phone Nataliia Hinojosa MD Primary Care Physician Encounter [facility] ACCT R [id number] Date(s): 02/17/22 - 02/24/22 [facility] [address] [address]- Attending Physician: Nathaly Sutherland Admitting Physician: Nathaly [...] AM, 0 Refills, Maintenance, 04/22/19 10:45:51 EDT, [place] Start Date: 04/22/19 Status: Ordered lansoprazole 30 [...]
--- OUTSIDE RECORDS SUMMARY | 2024-01-26 07:37 | XMS_ITS | Continuity of Care Document ---
Author Organization [facility] Address [address] [address]- Care Team Providers Care Chainstitch Tunnel Elastic Operator Name Role Phone Nataliia Hinojosa MD Primary Care Physician En[place] [facility] Date(s): 12/07/20 - 01/06/21 [facility] [address] [address]- Attending Physician: Luzmaria Michael Admitting Physician: Admtr Ar8 Referring Physician: Admtr, Ar8 Allergies, Adverse [...] AM, 0 Refills, Maintenance, 04/22/19 10:45:51 EDT, [place] Start Date: 04/22/19 Status: Ordered lansoprazole 30 [...]
--- OUTSIDE RECORDS SUMMARY | 2024-01-26 07:37 | XMS_ITS | Continuity of Care Document ---
Author Organization [facility] Address [address] [address]- Care Team Providers Care Industrial Editor Name Role Phone Nataliia Hinojosa MD Primary Care Physician En[place] [facility] Date(s): 02/10/23 - 02/17/23 [facility] [address] [address]- Attending Physician: Nathaly Sutherland Admitting Physician: Nathaly [...] AM, 0 Refills, Maintenance, 04/22/19 10:45:51 EDT, [place] Start Date: 04/22/19 Status: Ordered lansoprazole 30 [...] Safety Implantable Status Assigning Authority Unknown Unknown [id number] Unknown 08/05/23 Unknown Unknown Active Un known Procedure Provider Procedure Date Device Type Site Lengthening Gastrocnemius Luca Acosta MD 06/02/22 Un known Foot Right Device Identifier Serial Number Lot or Batch Number Manufacturing Date Expiration Date Distinct Identification Code MRI Safety Implantable Status Assigning Authority Unknown [id number] -1 Unknown 10/11/23 Unknown Unknown Active Unknown Patient Care team information Care Team Personnel Name: Tracy Martinez RN Position: [facility] RN Member Role: Primary Care Nurse Name: Nataliia Hinojosa MD Position: [facility] Physician - Primary Care Member Role: PCP Address: Address: [facility] [place] [address] Name: Maria Guadalupe Castellon RN Position: [facility] RN Supv Member Role: Primary Care Nurse Care Team Related Persons Name: TY NORTH Address: [address] [place] [address] Name: VANESSA PATEL Address: [address] [place] [address]
--- OUTSIDE RECORDS SUMMARY | 2024-01-26 07:37 | XMS_ITS | Continuity of Care Document ---
Author Organization [facility] Address [address] [address]- Care Team Providers Care Loan Coordinator Name Role Phone Nataliia Hinojosa MD Primary Care [id number] - 08[facility]29/20 [facility] [address] [address]- Attending Physician: Glenroy Mcghee MD Admitting Physician: [...] AM, 0 Refills, Maintenance, 04/22/19 10:45:51 EDT, [place] Start Date: 04/22/19 Status: Ordered lansoprazole [...]
--- OUTSIDE RECORDS SUMMARY | 2024-01-26 07:37 | XMS_ITS | Continuity of Care Document ---
Author Organization [facility] Address [address] [address]- Care Team Providers Care Hammer Driver Name Role Phone Louis Shirley Primary Care Physician [phone] Encounter [facility] ACCT R [id number] Date(s): 11/09/23 - 11/16/23 [facility] [address] [address]- Attending Physician: Nathaly Sutherland Admitting Physician: Nathaly [...] 5 Refills, Maintenance, 08/18/23 13:57:00 EST, Tablet, [facility][id number], Partial fill upon patient request if the [...] AM, 0 Refills, Maintenance, 04/22/19 10:45:51 EDT, [place] Start Date: 04/22/19 Status: Ordered lansoprazole 30 [...] Safety Implantable Status Assigning Authority Unknown Unknown [id number] Unknown 08/05/23 Unknown Unknown Active Un known Procedure Provider Procedure Date Device Type Site Lengthening Gastrocnemius Luca Acosta MD 06/02/22 Un known Foot Right Device Identifier Serial Number Lot or Batch Number Manufacturing Date Expiration Date Distinct Identification Code MRI Safety Implantable Status Assigning Authority Unknown [id number] -1 Unknown 10/11/23 Unknown Unknown Active Unknown Patient Care team information Care Team Personnel Name: Louis Shirley Position: Reference Physician Member Role: PCP Address: Address: [address] [place] [address]- Care Team Related Persons Name: TY NORTH Address: home [address] [place] [address] Name: VANESSA PATEL Address: home [address] [place] [address]
--- OUTSIDE RECORDS SUMMARY | 2024-01-26 07:37 | XMS_ITS | Continuity of Care Document ---
Author Organization [facility] Address [address] [address]- Care Team Providers Care Product Development Actuary Name Role Phone Louis Shirley Primary Care Physician [place] [facility] [place] [id number] Date(s): 10/09/23 - 10/16/23 [facility] [address] [address]- Attending Physician: Nathaly Sutherland Admitting Physician: Nathaly [...] 5 Refills, Maintenance, 08/18/23 13:57:00 EST, Tablet, [facility] #[id number], Partial fill upon patient request if the [...] AM, 0 Refills, Maintenance, 04/22/19 10:45:51 EDT, [place] Start Date: 04/22/19 Status: Ordered lansoprazole 30 [...] Safety Implantable Status Assigning Authority Unknown Unknown [id number] Unknown 08/05/23 Unknown Unknown Active Un known Procedure Provider Procedure Date Device Type Site Lengthening Gastrocnemius Luca Acosta MD 06/02/22 Un known Foot Right Device Identifier Serial Number Lot or Batch Number Manufacturing Date Expiration Date Distinct Identification Code MRI Safety Implantable Status Assigning Authority Unknown [id number] -1 Unknown 10/11/23 Unknown Unknown Active Unknown Patient Care team information Care Team Personnel Name: Louis Shirley Position: Reference Physician Member Role: PCP Address: Address: [address] [place] [address]- Care Team Related Persons Name: TY NORTH Address: [address] [place] [address] Name: VANESSA PATEL Address: home [address] [place] [address]
--- OUTSIDE RECORDS SUMMARY | 2024-01-26 07:37 | XMS_ITS | Patient Health Record ---
Author Organization [facility] Address [address] [place] [address] Care Team Providers Care Big Data Solutions Architect Name Role Phone Nataliia Hinojosa MD Primary Care Provider Javier Velázquez Unavailable [phone] ALLERGIES Allergen (clinical drug ingredient) Drug/Non Drug Allergy documented on EMR Reaction Allergy Type Onset Date Status acetaminophen / oxycodone Percocet itch Drug Allergy Active CASINprotein, eggs mold wheat,Nuts (uncoded) Unknown Allergy Active all pain meds not demerol (uncoded) Unknown Allergy Active REASON FOR REFERRAL No Information MEDICATIONS Medication SIG (Take, Route, Frequency, Duration) Notes Start Date End Date Status Singulair 10 MG 1 tablet Orally Once a day for 30 day(s) Active Cornelia-Q heladio once a week Activ e Prolia 60 MG/ML as directed Subcutan eous 2 x a year Active ProAir HFA 108 (90 Base) MCG/ACT 2 puffs as needed Inhalation every 6 hrs Active Caltrate 600+D3 600-800 MG-UNIT 1 tablet with a meal Orally Once a day for 30 day(s) Active Flonase Allergy Relief 50 MCG/ACT 1 spray in each nostril Nasally Once a day for 30 day(s) Active Gabapentin 100 MG 2 tablets Orally at hs Active Flecainide Acetate 50 MG as directed Orally Active Lansoprazole 30 mg TAKE 1 CAPSULE TWICE A DAY (CALL OFFICE FOR APPOINTMENT) Active Metoprolol Tartrate 25 MG 1 /2tablet wit h food orally once a day Active Cyanocobalamin 1000 MCG 1 tablet Orally twice a month Active IMMUNIZATIONS Vaccine Route Administration Date Status Comme nts Influenza Unknown 06/20/2019 Administered Influenza Unknown 06/13/2022 Administered SOCIAL HISTORY Tobacco Use: Social History Observation Description Date Details (start date - stop date) Former Smoker NA - NA Sex Assigned At : Social History Observation Description Sex Assigned At Unknown Tobacco Use/Smoking Question Answer Notes Patient is a former smoker When did you stop smoking? over 10 years ago How long has it been since you last smoked? > 10 years Alcohol Screen Question Answer Notes Did you have a drink contain ing alcohol in the past year? Yes How often did you have a dri nk containing alcohol in the past year? Never (0 point) How many drinks did you have on a typical day when you were drinking in the past year? 1 or 2 drinks (0 point) How often did you have 6 or more drinks on one occasion in the past year? Never (0 point) Points 0 Interpretation Negative PROBLEMS Problem Type ICD Code Onset Dates Problem Status W/U Status Risk SNOMED Code Notes Problem Colon cancer screening (Z12.11) Active confirmed 473303108 Problem Diverticulosis of large intestine without perforation or abscess without bleeding (K57.30) Active confirmed Diverticul ar disease of colon (976911696) Problem Gastroesophageal reflux disease with esophagitis (K21.0) Active confirmed 501444671 Problem Gastroesophageal reflux disease without esophagitis (K21.9) Active confirmed 708925778 Problem Preprocedural examination (Z01.818) Active confirmed 609411123125593 Problem Hiatal hernia (K44.9) Active confirmed 37810445 Problem Irritable bowel syndrome, unspecified type (K58.9) Active confirmed 56959524 PLAN OF TREATMENT Future Test Test Name Order Date UPPER GI ENDOSCOPY 06/10/2011 COLONOSCOPY 06/10/2011 UPPER GI ENDOSCOPY 08/05/2019 COLONOSCOPY 09/09/2022 Insurance Providers Payer Name Payer Address Payer Phone Subscriber Number Group Number Insured Name Patient Relationship to Insured Coverage Start Date Coverage End Date [facility] [address] [address] [place] [address] [id number] NHUNG Garibay STEFANIE Self - patient is the insured MEDICAL (GENERAL) HISTORY Medical History History ICD Code GERD-her most recent upper e ndoscopy was in November 2011 which revealed a moderate-sized hiatal hernia, mild erosive esophagitis, and mild gastritis--duodenal biopsies were normal, gastric biopsies were negative for H. 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 Zuñiga was negative Neg. cardiac cath in 08/2017 EGD 09/2019 with small to mod -sized HH--no Pugh's, no esophagitis, neg Hypylori Surgical History Surgery Date(Month/Year) Right rotator cuff repair CCY Hysterectomy Ankle surgery--another surgery is schedu led for 09/28/19 at [facility] [place] Benign breast biopsies Thyroid surgery precancerous --right lo be removed Midfoot fusion surgery-right --05/2022--wearing a boot on the foot as of the 08/2022 OV
--- OUTSIDE RECORDS SUMMARY | 2024-01-26 07:37 | XMS_ITS | Continuity of Care Document ---
Author Organization [facility] Address [address] [place] [address]- Care Team Providers Care Sciences Dean Name Role Phone Nataliia Hinojosa MD Primary Care Physician [phone] Encounter [facility] [place] [id number] Date(s): 07/31/20 - 09/20/20 [facility] [address] [place] [id number] Attending Physician: Jarod Menchaca MD Admitting Physician: Jarod Menchaca MD Referring Physician: Nataliia Hinojosa MD Allergies, Adverse Reactions, Alerts Substance Reaction Severity Status codeine N/V Active Percocet itch Active Percodan itching Active Vicodin C/O - vomiting Active Mold short of breath,sinus issues Active Nuts per testing Active Other Food Allergy dairy diarrhea Active Egg Allergy abd pain Active Wheat psoriasis Active Medications Acetaminophen = 1,000 mg, By [...] AM, 0 Refills, Maintenance, 04/22/19 10:45:51 EDT, [place] Start Date: 04/22/19 Status: Ordered lansoprazole [...]
--- OUTSIDE RECORDS SUMMARY | 2024-01-26 07:37 | XMS_ITS | Patient Health Record ---
Author Organization [facility] Address [address] [place] [address] Care Team Providers Care Supervisor [employer] Name Role Phone Nataliia Hinojosa MD Primary Care Provider Kamalaa Cindy Gama Unavailable [phone] ALLERGIES Allergen (clinical drug ingredient) Drug/Non Drug Allergy documented on EMR Reaction Allergy Type Onset Date Status Percodan itching Drug Allergy Active Penicillin Unknown Drug Allergy Active codeine Codeine constipation Drug Allergy Acti ve REASON FOR REFERRAL No Information MEDICATIONS Medication SIG (Take, Route, Frequency, Duration) Notes Start Date End Date Status Celecoxib 200 MG 1 capsule with food Orally Once a day for 30 day(s) Active Flecainide Acetate 50 MG Orally Active Caltrate 600+D3 Acti ve CeleBREX 100 MG 1 capsule with food Orally Once a day Not-Taking Cyanocobalamin 2x per month Ac tive Vitamin D 1000 UNIT 1 tablet Orally Once a day Not-Taking Eylea 1x per month Active Cephalexin 500 MG 1 tablet Orally Twice a day for 10 day(s) Not-Taking Prolia 60 MG/ML as directed Subcutaneous Active Turmeric 1000 mg 2x per day Active Lansoprazole 30 MG 1 capsule Orally Once a day Active Collagen + Biotin, 6000mg Active Metoprolol Succinate 25 MG 1 capsule Orally Once a day Active PreserVision AREDS 2 Active Biotin 5000 5 MG 1 capsule Orally Once a day Not-Taking Flaxseed Oil 1200 MG as directed Orally Active Caltrate 600 1500 (600 Ca) MG Orally Not-Taking Montelukast Sodium 10 MG 1 tablet Orally Once a day for 30 day(s) Active SOCIAL HISTORY Tobacco Use: Social History Observation Description Date Details (start date - stop date) Former Smoker NA - NA Sex Assigned At : Social History Observation Description Sex Assigned At Unknown Tobacco Use/Smoking Question Answer Notes Are you a: former smoker When did you stop smoking? 20 years ago How long has it been since you last smoked? < 1 month Additional Findings: Tobacco Non-User Current no n-smoker Alcohol Screen Question Answer Notes Did you have a drink containing alcohol in the p ast year? Yes Points 0 Interpretation Negative Tobacco use other than smoking: Question Answer Notes Are you an other tobacco user? No PLAN OF TREATMENT Pending Test Test Name Order Date 74925- Debride <25 sq cm 12/10/2017 05544 I&D ABSCESS- SIMPLE,SINGLE 018 Insurance Providers Payer Name Payer Address Payer Phone Subscriber Number Group Number Insured Name Patient Relationship to Insured Coverage Start Date Coverage End Date [employer] Medicare [id number] [address] [address] [place] [address] [id number] Clinton Hoyt Self - patient is the insured MEDICAL (GENERAL) HISTORY Medical History History ICD Code Macular degeneration Anemia Arthritis asthma Back,Hip,and Knee pain Broken bones Cataracts covid-19 Gall bladder problems Heart disease Numbness Osteoporosis Psoriasis/eczema Reflux ( GERD) Sciatica chronic sinusitis thyroid Chicken pox Surgical History Surgery Date(Month/Year) hysterectomy 1996 lumpectomy-benign 1996 left knee arthroscopy 2003 cholecystectomy 2004 sinus surgery 2006 rotator cuff tear repair 2010 ankle surgery 1990, 2015 thyroidectomy, partial 2019 gall bladder 2000 Hospitalization History Reason Date(Month/Year) [facility] 11/25/17
--- OUTSIDE RECORDS SUMMARY | 2024-01-26 07:37 | XMS_ITS | Continuity of Care Document ---
Author Organization [facility] Address [address] [address]- Care Team Providers Care Lead Section Supervisor Name Role Phone Nataliia Hinojosa MD Primary Care Physician [phone] Encounter [facility] [place] [id number] Date(s): 12/07/20 - 12/14/20 [facility] [address] [address]- Attending Physician: Nathaly Sutherland Admitting Physician: Nathaly [...] AM, 0 Refills, Maintenance, 04/22/19 10:45:51 EDT, [place] Start Date: 04/22/19 Status: Ordered lansoprazole 30 [...]
--- OUTSIDE RECORDS SUMMARY | 2024-01-26 07:37 | XMS_ITS | Continuity of Care Document ---
Author Organization [facility] Address [address] [place] [id number]- Care Team Providers Care New Car Inspector Name Role Phone Nataliia Hinojosa MD Primary Care Physician Encounter [facility] [place] Date(s): 07/31/20 - 08/30/20 [facility] [address] [place] [address]- Attending Physician: AdmLuzmaria mckeon Admitting Physician: Admtr, Ar8 Referring Physician: Admtr, Ar8 Allergies, Adverse Reactions, Alerts Substance Reaction Severity Status codeine N/V Active Percocet itch Active Percodan itching Active Other Food Allergy dairy diarrhea Active Egg Allergy abd pain Active Vicodin C/O - vomiting Active Mold short of breath,sinus issues Active Nuts per testing Active Wheat psoriasis Active Medications Acetaminophen = [...] AM, 0 Refills, Maintenance, 04/22/19 10:45:51 EDT, [place] Start Date: 04/22/19 Status: Ordered lansoprazole 30 [...]
[2024-01-26 07:48] VITALS: BP 134/65; PULSE 68; RESP 16; TEMP 36.6; O2SAT 98
[2024-01-26] MEDS: Zoledronic Acid/Mannitol-Water 5 MG/100 ML PGGYBK.BTL IV (07:51)
[2025-02-23 08:14] VITALS: BP 134/68; PULSE 77; RESP 16; TEMP 36.8; O2SAT 95
[2025-02-23] MEDS: Zoledronic Acid/Mannitol-Water 5 MG/100 ML PGGYBK.BTL IV (08:46)
== END 2025-02-23 09:06 | disposition home or self-care (01) ==
LOC: HO.INF 08:30
PROVIDERS: Visit Provider Student in an Organized Health Care Education/Training Program
DX: M81.0 Age-related osteoporosis without current pathological fracture (principal)
CPT/HCPCS: 96374; J3489

== ENCOUNTER 2025-03-08 08:18 | Outpatient (AMB) | payer MEDICARE, SELFPAY ==
--- OUTSIDE RECORDS SUMMARY | 2025-03-08 08:30 | XMS_ITS | Clinical Summary ---
Author Organization [facility] Address [address] [place] [address] Phone Care Team Providers Care Senior Web Architect Name Role Phone Louis Quijano Primary Care Provider Encounters Date Type Department Care Team Description 02/02/2025 8:08 AM EDT - 02/02/2025 11:59 PM EDT Hospital Encounter [facility] [address] [place] [phone] Age-related osteoporosis without current pathological fracture Discharge Disposition: Home or Self Care 02/02/2025 7:51 AM EDT - 02/02/2025 11:59 PM EDT Hospital Encounter [facility] [address] [place] [phone] Age-related osteoporosis without current pathological fracture Discharge Disposition: Home or Self Care 01/12/2025 9:29 AM EDT - 01/12/2025 11:59 PM EDT [facility] [address] [phone] Encounter for screening mammogram for breast cancer [...] Impressions 02/03/2025 7:49 AM EDT Impression: Osteoporosis. There has been a decrease of 8.9% in bone mineral density since the prior examination of 01/07/2023. Code 96596 -------- FINAL REPORT -------- Dictated By: Bam Sanchez Dictated Date: 02/03/2025 07:47 ET Assigned Physician: Bam Sanchez Reviewed and Electronically Signed By: Bam Sanchez Signed Date: 02/03/2025 07:49 ET Workstation ID: [id number] Transcribed By: Self Edit Transcribed Date: 02/03/2025 07:47 ET Narrative 02/03/2025 7:49 AM EDT HISTORY: The patient is a 69-year-old postmenopausal female with clinical concern for metabolic bone disease. FINDINGS: Dual [...] since the prior examination of 01/07/2023. Code 47024 -------- FINAL REPORT -------- Dictated By: Bam Sanchez Dictated Date: 02/03/2025 07:47 ET Assigned Physician: Bam Sanchez Reviewed and Electronically Signed By: Bam Sanchez Signed Date: 02/03/2025 07:49 ET Workstation ID: [id number] Transcribed By: Self Edit Transcribed Date: 02/03/2025 07:47 ET Kriss Stokes MD IMG DXA PROCEDURES Final Result * BD Bone Density DXA Axial Skeleton (02/02/2025 8:38 AM EDT) Anatomical Region Laterality Modality Wrist, Hip, L-spine Bone Densito metry 02/03/2025 7:50 AM EDT Impressions 02/03/2025 7:51 AM EDT 1. Osteoporosis. There has been a decrease of 1.0% in bone mineral density in the lumbar spine since the prior examination of 01/07/2023. There has been a decrease of 2.8% in bone mineral density in the right femur and a decrease of 3.9% in bone mineral density in the left femur. 2. FRAX analysis yields a 10-year probability of major osteoporotic fracture of 14.1% and a 10-year probability of hip fracture of 3.6%. Code 72763 -------- FINAL REPORT -------- Dictated By: Bam Sanchez Dictated Date: 02/03/2025 07:50 ET Assigned Physician: Bam Sanchez Reviewed and Electronically Signed By: Bam Sanchez Signed Date: 02/03/2025 07:51 ET Workstation ID: [id number] Transcribed By: Self Edit Transcribed Date: 02/03/2025 07:50 ET Narrative 02/03/2025 7:51 AM EDT HISTORY: The patient is a 69-year-old postmenopausal female with clinical concern for metabolic bone disease. FINDINGS: Dual [...] 92% of that of age matched controls. This yields a T-score of -1.6 and a Z-score of -0.6 which is diagnostic of osteopenia. However, the T-score of the right femoral neck [...] density of the femurs bilaterally is 0.806 gm/gp5ekhdp is 80% of that of young normals [...] probability of hip fracture of 3.6%. Code 50627 -------- FINAL REPORT -------- Dictated By: Bam Sanchez Dictated Date: 02/03/2025 07:50 ET Assigned Physician: Bam Sanchez Reviewed and Electronically Signed By: Bam Sanchez Signed Date: 02/03/2025 07:51 ET Workstation ID: [id number] Transcribed By: Self Edit Transcribed Date: 02/03/2025 [...] year. Mammo Location: [facility], [address] [place] [address], [id number], . -------- FINAL REPORT -------- Dictated By: Demetra Meadows Dictated Date: 01/12/2025 15:21 ET Assigned Physician: Demetra Meadows Reviewed and Electronically Signed By: Demetra Meadows Signed Date: 01/12/2025 15:26 ET Workstation ID: [id number] Transcribed By: Self Edit Transcribed Date: 01/12/2025 15:21 ET Narrative 01/12/2025 3:26 PM EDT CLINICAL: 69 years old, Female, routine annual exam. COMPARISON: 01/11/2024, 01/06 2023, 2021, 09/27/2020, 03/27/2020 and 09/10/2019 TECHNIQUE: Bilateral MLO and CC views were obtained digitally with 3-D mammogram (digital breast tomosynthesis). Computer-aided detection was utilized in evaluation of this exam (CAD). FINDINGS: There is no evidence of suspicious mass or architectural distortion. No worrisome calcifications are evident. There has been no significant change from prior exam(s). 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 BREAST DENSITY: [...] has been no significantchange from prior exam(s). 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 BREAST DENSITY: B - There are scattered areas of fibroglandular density. IMPRESSION: No evidence of breast malignancy. BI-RADS CATEGORY: 1 - NEGATIVE RECOMMENDATION: Screening bilateral mammogram is recommended in 1 year. Mammo Location: [facility], [address] [place] [address], [id number], . -------- FINAL REPORT -------- Dictated By: Demetra Meadows Dictated Date: 01/12/2025 15:21 ET Assigned Physician: Demetra Meadows Reviewed and Electronically Signed By: Demetra Meadows Signed Date: 01/12/2025 15:26 ET Workstation ID: [id number] Transcribed By: Self Edit Transcribed Date: 01/12/2025 15:21 ET us Self Referral Sppl IMG BI PROCEDURES Final Resul t from Last 3 Months Insurance [employer] MED[employer]ARE Care Teams Senior Web Architect Relationship Specialty Start Date End Date Louis Quijano PA PCP - General Physician Grades 1 Through 6 Teacher 01/12/25
[2025-03-08 08:43] VITALS: BP 120/67; PULSE 66; RESP 16; O2SAT 96; BMI 32.6
--- NOTE | 2025-03-08 08:43 | MHC.OFFVIS ---
Vital Signs 03/08/25 08:43 Height 5 ft 2 in Weight 178 lb BMI 32.6 BP 120/67 Blood Pressure Location Rt brachial Position Sitting Respiration 16 Pulse 66 Pulse Source Pulse Oximeter Pulse Oximetry (%) 96 Oxygen Delivery Method Room Air Intake Visit Reasons: Lumbar Radiculopathy Psychiatric Nurse Practitioner Required: No Accompanied by: Self / Same As Patient Allergies oxycodone (From Percocet) Allergy (Mild, Verified 03/08/25 08:46) NAUSEA,HIVES,THROWING UP/ codeine (Codeine) Adverse Reaction (Mild, Verified 03/08/25 08:46) Constipation dairy protein Allergy (Severe, Uncoded 02/13/25 09:34) Diarrhea dairy,eggs, wheat,nuts,mold Allergy (Severe, Uncoded 02/13/25 09:34) Diarrhea HPI Comments Details: The patient is a 70-year-old female presenting with chronic lower back pain radiating down the left leg. The pain has been present for a long time, possibly over five years, and has progressively worsened. The pain radiates into the left foot and groin, with associated numbness and weakness of the left leg. The patient reports that sitting is unbearable, and standing is the most comfortable position, although prolonged standing is challenging due to a double fusion in the foot. She has tried various interventions, including a TENS unit, ice, heat, and muscle relaxants, but finds them insufficient. She has not adhered to physical therapy recommendations due to frustration with physical limitations and pain. Pain is impacting her sleep which is taking a toll on her mentally and emotionally. She has been using TENS unit at home along with HEP with minimal relief. The patient has a history of atrial fibrillation, osteoporosis, hyperlipidemia, and gastroesophageal reflux disease. She underwent an MRI which revealed issues in the lower back, leading to a recommendation for physical therapy, which she did not pursue. She has had a Reclast infusion recently for osteoporosis management. - Onset: Pain has been present for over five years and has progressively worsened. - Quality: Pain radiates into the left foot and groin, with associated numbness and weakness of the left leg. - Location: Lower back, radiating down the left leg into the foot and groin. - Exacerbating factors: Sitting is unbearable, and prolonged standing is challenging. - Relieving factors: Standing is the most comfortable position, although not sustainable for long periods. - Interference: Pain interferes with daily activities, including sitting, standing, and walking. - Affect: Pain impacts mood and psychological wellbeing, causing frustration and distress. - Analgesia: Current medications include gabapentin and muscle relaxants; pain levels remain high. - Adverse Effects: Muscle relaxants cause excessive sedation, leading to reduced usage. - Activities of Daily Living: Pain significantly limits ability to perform daily tasks, including sitting, standing, and walking. - Aberrant Drug Related Behaviors: No signs of medication misuse or abuse reported. [facility] Medical History On beta kendal at home Atrial fibrillation Vitamin B 12 deficiency Multinodular thyroid Osteoporosis Vitamin D deficiency Lymphadenopathy of head and neck Neck pain Normal colonoscopy History of mammogram Asthma Hyperlipidemia GERD (gastroesophageal reflux disease) Arrhythmia Surgical History History of surgery History of lumpectomy of both breasts Hx of cholecystectomy History of esophagogastroduodenoscopy (EGD) H/O colonoscopy History of thyroidectomy S/P foot surgery, right History of rotator cuff surgery Carpal tunnel syndrome H/O arthroscopy of right knee History of breast biopsy History of hysterectomy Family History Father CAD (coronary artery disease) CVD (cardiovascular disease) Mother No problems noted. Brother Cancer Sister Liver cancer CVD (cardiovascular disease) Breast cancer Other Mental health disorder Social History Housing: House Alcohol intake: current Alcohol intake frequency: holidays/special occasions only Patient Tobacco Use Status: Former Tobacco user Tobacco use type: Cigarette Cigarettes Per Day: 5 Years Smoked: 35 e-Cigarette/Vaping Use: Never Used Second Hand Smoke Exposure: Yes service: No Current occupational status: retired Cognitive needs: No Hearing needs: No Vision needs: Yes (Glasses) Review of Systems Const Details: - Musculoskeletal: Reports chronic lower back pain radiating down the left leg, with associated numbness and weakness. - Neurological: Reports numbness in hands and sleep disturbances. - Ophthalmologic: Reports macular degeneration. - Cardiovascular: Reports history of atrial fibrillation, denies current palpitations. Physical Exam Vital Signs: Last Vital Signs Pulse 66 03/08/25 08:43 Resp 16 06/25/25 08:43 BP 120/67 03/08/25 08:43 Pulse Ox 96 03/08/25 08:43 Oxygen Delivery Method Room Air 03/08/25 08:43 BMI result Body Mass Index 32.6 General: awake, alert, oriented. Answers questions appropriately. Fully engaged in examination. Skin: warm, dry, intact HEENT: Normocephalic. Hearing intact. Cardiac: External chest normal in appearance. Respiratory: No cough, audible wheezing or stridor. Abdomen: without gross distension. MS: No obvious swelling or deformities. Able to stand on bilateral tiptoes and bilateral heels.? Able to transition from sit to stand unassisted. Ambulates with bilaterally normal heel strike and toe off Tenderness over midline lumbar vertebrae and lumbar paraspinal muscles SLR positive on the left Significantly decreased lumbar range of motion, pain worse with flexion versus extension Neurological: Oriented to person, place, time and situation. Thought process intact. No gait abnormalities appreciated. Psychiatric: Appropriate mood and affect. Good judgment and insight. Results Reviewed Results Reviewed: 02/21/2025 MR/MR lumbar spine wo con FINDINGS: Last rib-bearing vertebra labeled T12. Grade 1 anterolisthesis L4-5. Bone marrow STIR signal in the inferior endplate of T11 and the superior endplate of T12. STIR signal abnormality at the L4-5 and L5-S1 facet joints. Multilevel marginal osteophyte formation and disc desiccation more pronounced at T11-12 L4-5 levels. Grade 1 anterolisthesis L2-3 and L3-4 on a degenerative basis. Conus medullaris ends at pedicle of L1 with normal signal. T11-12: Broad-based disc bulging. No compression upon neural elements. T12-L1: No compression upon neural elements. L1-2: No compression upon neural elements. L2-3: Broad-based disc bulging. No compression upon neural elements. L3-4: Broad-based disc bulging. Facet joint and ligamentum flavum hypertrophy. Reduced AP diameter of the thecal sac and neuroforamina. No compression upon neural elements. L4-5: Broad-based disc bulging. Grade 1 anterolisthesis. Hypertrophy of the ligamentum flavum and facet joints with facet joint effusions. Central spinal canal and to a lesser extent bilateral neuroforamina stenosis encroaching the neural elements. L5-S1: Broad-based disc bulging. Facet joint and ligamentum flavum hypertrophy. Prominent epidural fat in a circumferential fashion. Reduced AP diameter of the thecal sac and neuroforamina likely encroaching the exiting nerve roots, left greater than the right side. No prevertebral compartment hematoma, mass or fluid collection. IMPRESSION: Grade 1 anterolisthesis on a degenerative basis resulting in central spinal canal and bilateral neuroforamina stenosis encroaching the neural elements. Spondylosis at multiple levels more pronounced at L5-S1 encroaching the exiting nerve roots. Assessment & Plan Assessment & Plan (1) Degenerative disc disease, lumbar: Code(s): M51.369 - Other intervertebral disc degeneration, lumbar region without mention of lumbar back pain or lower extremity pain Category: Medical (2) Osteoporosis: Code(s): M81.0 - Age-related osteoporosis without current pathological fracture Category: Medical Qualifiers: Osteoporosis type: age-related Presence of current pathological fracture: without current pathological fracture Qualified Code(s): M81.0 - Age-related osteoporosis without current pathological fracture (3) Lumbar radiculopathy: Code(s): M54.16 - Radiculopathy, lumbar region Category: Medical (4) Chronic pain syndrome: Code(s): G89.4 - Chronic pain syndrome Category: Medical Plan The plan includes pursuing an epidural injection without steroids due to the patient's osteoporosis, with the aim of providing pain relief. A referral to the spine center for further evaluation and potential surgical intervention is also considered, although the patient prefers to avoid surgery if possible. The patient will continue using gabapentin for nerve pain management, with a prescription for 200 mg at bedtime to aid sleep. The patient is advised to avoid excessive use of muscle relaxants due to sedation effects and to consider alternative pain management strategies. A message will be sent to Dr. Stokes to discuss the possibility of a steroid injection, and the patient will be informed of the outcome. The patient is encouraged to maintain communication with the spine center to explore all available options for managing her condition. I discussed with the patient the option of an epidural injection without steroids due to her osteoporosis, explaining the potential for temporary pain relief and the risks involved, such as bleeding and infection. We also talked about the possibility of consulting with the spine center for further evaluation and potential surgical options. I advised the patient on the use of gabapentin for nerve pain management and the importance of avoiding excessive use of muscle relaxants due to sedation. Patient was informed and verbally consented to the use of an ambient scribe for clinic note documentation during this visit. Orders: Referrals Neuro Spine Referral M51.369 - Other intervertebral disc degeneration, lumbar region without mention of lumbar back pain or lower extremity pain, M54.16 - Radiculopathy, lumbar region, M81.0 - Age-related osteoporosis without current pathological fracture Medications: New gabapentin 200 mg (2 x 100 mg) PO BEDTIME 60 caps 3RF Patient Instructions: - Continue taking gabapentin 200 mg at bedtime for nerve pain management. - Avoid excessive use of muscle relaxants to prevent sedation. - Follow up with the spine center for further evaluation and potential treatment options. - Await communication regarding the possibility of a steroid injection after consultation with Dr. Stoeks. Coding Level of Care Code New Pt Level 4 (84221) Complex EM visit Add On G2211 Diagnoses Degenerative disc disease, lumbar M51.369 Age-related osteoporosis without current pathological fracture M81.0 Osteoporosis type: age-related Presence of current pathological fracture: without current pathological fracture Lumbar radiculopathy M54.16 Chronic pain syndrome G89.4
== END 2025-03-08 09:29 | disposition home or self-care (01) ==
LOC: HO.PMC 08:19
PROVIDERS: PCP Physician Assistant; Referring Provider Physician Assistant; Visit Provider Registered Nurse Emergency
DX: M51.369 Other intervertebral disc degeneration, lumbar region without mention of lumbar back pain or lower extremity pain (principal); M81.0 Age-related osteoporosis without current pathological fracture; M54.16 Radiculopathy, lumbar region; G89.4 Chronic pain syndrome
CPT/HCPCS: 99204; G2211

== ENCOUNTER → 2025-03-08 08:18 | Outpatient (BNVA) | payer MEDICARE, SELFPAY | PROVIDERS: PCP Physician Assistant; Referring Provider Physician Assistant; Visit Provider Registered Nurse Emergency | DX: M51.369 Other intervertebral disc degeneration, lumbar region without mention of lumbar back pain or lower extremity pain (principal); M81.0 Age-related osteoporosis without current pathological fracture; M54.16 Radiculopathy, lumbar region; G89.4 Chronic pain syndrome | CPT/HCPCS: 99202 ==

== ENCOUNTER 2025-03-21 12:40 | Outpatient (AMB) | payer MEDICARE, SELFPAY ==
--- NOTE | 2025-03-21 12:58 | HO.SPINEOV ---
Intake Visit Reasons: LBP Intake Note: Ms. Thomas is here today c/o Low back pain. Television Newscast Director Required: No Allergies oxycodone (From Percocet) Allergy (Mild, Verified 03/21/25 13:04) NAUSEA,HIVES,THROWING UP/ codeine (Codeine) Adverse Reaction (Mild, Verified 03/21/25 13:04) Constipation dairy protein Allergy (Severe, Uncoded 02/13/25 09:34) Diarrhea dairy,eggs, wheat,nuts,mold Allergy (Severe, Uncoded 02/13/25 09:34) Diarrhea Assessment & Plan Assessment & Plan (1) Spondylolisthesis: Code(s): M43.10 - Spondylolisthesis, site unspecified Category: Medical Plan Dear JACQUE Quijano, Thank you for referring Clinton to our office today. She is a pleasant, complicated, 70-year-old female who comes in today for evaluation of low back pain and cramping pains into her bilateral buttocks and thighs. She reports this has been ongoing for the past 10 years, but has slowly worsened over the course of the last 1 year. It is now to the point where she rates her constant daily pain as an 8/10. She states that her pain is severe when she sits down, but feels better when standing/walking. The pain is the most severe in her left lateral leg/left groin. She denies any known inciting incident for the pain. She feels like this has come on rather slowly over the years. She has been evaluated by our colleagues in pain management who are planning an injection on May 09. She has attempted to utilize [id number] medications including Tylenol / NSAIDs without significant relief of her symptoms. She has also attempted prescription medications including gabapentin and Celebrex, with only modest relief. She has not as of yet attempted physical therapy. In addition to her low back concerns, the patient wished to discuss her cervical spine concerns as well today. She states that she has had fairly severe posterior neck pain for many years. She is now more concerned about it as she has shooting pains into her bilateral upper extremities terminating near the elbow. In addition to this her hands have become numb, and she finds herself unable to perform fine motor movements throughout the day. She has trouble writing with a pen, is unable to button buttons, and drops things around her home. She feels her balance is slowly declined over the course of the last few years, and finds herself needing to either ambulate with the assistance of a cane, or hold onto something while walking around her home. She denies any bowel/bladder incontinence. She does report having an EMG completed about 1 year ago (unsure where, not at [facility]) which showed no evidence of carpal tunnel syndrome. PMH: History of osteoporosis in the wrist and hips. Osteopenia in Lumbar spine verified by recent DEXA scan completed at [facility] in 2024. Atrial fibrillation with ablation procedure performed November of 2023. History of right ankle fusion, right rotator cuff repair, cholecystectomy, hysterectomy, right and left breast lumpectomy, removal of sinus polyps, right-sided thyroidectomy, partial resection of bladder. Social hx: The patient does not smoke, reports no substance use. Medications: Lansoprazole, albuterol, celecoxib, montelukast, calcium, vitamin-D, Reclast infusions for osteoporosis, Gabapentin Allergies: Oxycodone, Codeine, Dairy, eggs, wheat, nuts, mold. Physical exam: The patient has 5/5 strength in her upper and lower extremities. She has no significant sensational deficits to light touch on examination. She ambulates slowly, but well, with no notably spastic or antalgic gait. She rises from a seated position without much difficulty in his able to get up onto the examination table without issue. She has (+) bilateral starks's when testing the 3rd phalanx. (+) Lhermitte's. She has (-) clonus. (-) Babinski's. (-) Bilateral straight leg raise. Imaging review: MRI of the lumbar spine completed here at [facility] shows a grade 1 spondylolisthesis at L4-5 causing severe central canal and bilateral foraminal stenosis at this level. Impression: Clinton is a pleasant 70-year-old female who comes in today for evaluation of low back pain and cramping pains into her bilateral buttocks and thighs. She also expresses concerns regarding her cervical spine during this visit today. In regards to the spondylolisthesis seen at L4-5, this is most likely the cause of her severe low back pain in the cramping she experiences in her legs after sitting for prolonged periods of time. In his likely that the listhesis moves even farther out of place when she is sitting down, causing worsening symptoms when sitting. This could be treated with lumbar fusion, even given the patient's history of osteopenia in the lumbar spine, if the patient is understanding of the risk of fracture/surgical hardware malfunction due to her osteopenia. However, I think given the fact that she has not attempted cortisone injections or physical therapy, this would be a good place for her to start. She may be re-evaluated in our clinic for her lumbar spine concerns after her injections with our colleagues in pain management. 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 She also has a bilateral cervical radiculopathy shooting into her arms. Given that her most recent EMG done 1 year ago was reported to show no evidence of carpal tunnel syndrome, I feel ordering a cervical MRI for this patient to rule out a severe spinal cord compression is completely reasonable given her disclosure nerve symptoms, and her myelopathic reflexes noted on examination. I will call and update the patient with the results of her cervical spine MRI once it is complete. Thank you for allowing us to care for your patient. The total time spent with this visit with this patient was 65 minutes reviewing history, physical exam, MRI imaging review, DEXA scan review, and implementation of treatment plan or further diagnostic testing James Wick MD,PhD [facility] Orders: Orders PT Evaluation and Treatment Today M54.50 - Low back pain, unspecified MR cervical spine wo con Today M54.12 - Radiculopathy, cervical region Coding Level of Care Code New Pt Level 5 (81635) Diagnoses Spondylolisthesis M43.10
--- OUTSIDE RECORDS SUMMARY | 2025-03-21 13:23 | XMS_ITS | Patient Health Record ---
Author Organization [facility] Address [address] [place] [id number] Care Team Providers Care Fiscal Manager Name Role Phone Nataliia Hinojosa MD Primary Care Provider Javier Velázquez Unavailable [phone] Allergies Allergen (clinical drug ingredient) Drug/Non Drug Allergy documented on EMR Reaction Allergy Type Onset Date Status acetaminophen / oxycodone Percocet itch Drug Allergy Active CASINprotein, eggs mold wheat,Nuts (uncoded) Unknown Allergy Active all pain meds not demerol (uncoded) Unknown Allergy Active Reason For Referral No Information Medications Medication [...] 1 tablet Orally twice a month Active Immunizations Vaccine Route Administration Date Status Comme nts Influenza Unknown 06/20/2019 Administered Influenza Unknown 06/13/2022 Administered Social History Tobacco Use: Social History Observation Description Date Details (start date - stop date) Former Smoker NA - NA Tobacco Use/Smoking Question Answer Notes Patient is [...] Never (0 point) Points 0 Interpretation Negative Section Notes: She does smoke, and uses occ asional alcohol Nonsmoker > 10 years; uses o nly occasional alcohol Nonsmoker > 10 years; uses o nly occasional alcohol Nonsmoker > 10 years; uses o nly occasional alcohol Problems Problem Type SNOMED Code ICD Code Onset Dates Problem Status W/U Status Risk Notes Problem 394237291 Colon cancer screening (Z12.11) Active confirmed Problem Diverticular disease of colon (496165899) Diverticulosis of large intestine without perforation or abscess without bleeding (K57.30) Active confirmed Problem 905159958 Gastroesophageal reflux disease with esophagitis (K21.0) Active confirmed Problem 101165485 Gastroesophageal reflux disease without esophagitis (K21.9) Active confirmed Problem 464590417642074 Preprocedural examination (Z01.818) Active confirmed Problem 76515901 Hiatal hernia (K44.9) Active confirmed Problem 44216057 Irritable bowel syndrome, unspecified type (K58.9) Active confirmed Plan Of Treatment Future Test Test Name Order Date UPPER GI ENDOSCOPY 06/10/2011 COLONOSCOPY 06/10/2011 UPPER GI ENDOSCOPY 08/05/2019 COLONOSCOPY 09/09/2022 Insurance Providers Payer Name Payer Address Payer Phone Subscriber Number Group Number Insured Name Patient Relationship to Insured Coverage Start Date Coverage End Date [facility] [address] [place] [address] [id number] Garibay STEFANIE Self - patient is the insured Medical (General) History Medical History History ICD Code GERD-her most recent upper e ndoscopy was in November 2011 which revealed a moderate-sized hiatal hernia, mild erosive esophagitis, and mild gastritis--duodenal biopsies were normal, gastric biopsies were negative for H. pylori, and esophageal biopsies were negative for Pugh's esophagus; she also had upper endoscopies in 2001 and in 2006 Hyperlipidemia Denies [place],DM,CVA,Lung disease,renal dise ase A.fib--health care aide-Dr. Green Osteoarthritis Asthma Colonoscopy November 2011 with [...] surgery is schedu led for 09/28/19 at [facility] [place] Benign breast biopsies Thyroid surgery precancerous --right lo be removed Midfoot fusion surgery-right --05/2022--wearing a boot on the foot as of the 08/2022 OV
--- OUTSIDE RECORDS SUMMARY | 2025-03-21 13:23 | XMS_ITS | Data Portability ---
Author Organization [place], [place], [facility] Address [address] [place] [address] Care Team Providers Care Medical Technicians Name Role Phone GLADYS KAISER Primary Care Provider GLADYS KAISER Referring Provider Assessment No assessment recorded. Plan of Treatment Reminders Order Date Submit Date Provider Last Modified By Organization Details Last Modified Time Details Appointments None recorded. Lab None recorded. Referral ophthalmolo gist referral 2022 023 [id number], [address] [facility] [place], [address], 3 11:31:29 Procedures None recorded. Surgeries None recorded. Imaging unlisted imaging order - US soft tissue 2023 024 [email or web address], [email or web address], All Locations, [place], [address], 4 06:52:33 CT, coronary calcium score 2022 023 STEFAN [email or web address], [email or web address], All Locations, [place], [address], 3 09:03:16 Medication Orders amoxicillin 875 mg-potassiu m clavulanate 125 mg tablet 2024 025 STEFAN [id number], [address] [place], [address], 5 10:24:37 Medrol (Samuel) 4 mg tablets in a dose pack 2024 025 STEFAN [id number], [address] [place], [address], 5 09:50:05 cefdinir 300 mg capsule 2024 025 STEFAN [id number], [address] [facility], [place], [address], 5 09:50:01 Prolia 60 mg/mL subcutaneou s syringe 2022 023 [email or web address] [facility], [address] [place] [address], [address], 13:29:24 Patient TargetsNo targets recorded. Patient Instructions Encounter Date Encounter Id Patient Instructions Last Modified By Organization Details Last Modified Time 10/01/2022 [id number] gastroesophageal reflux disease (GERD): care instructions Not available 10/01/2022 10:49:30 high cholesterol : care instructions Not available 10/01/2022 10:56:23 11/13/2024 [id number] Acute Sinusitis: Care Instructions [email or web address] Not available 11/13/2024 10:24:35 start on the abo ve medication as directed , if symptoms persist please either follow up with PCP or here back at the walking for re evaluation of symptoms , if symptoms worsen please go to the ER for further evaluation and treatment. Patient understands instructions and will seek medical attention if symptoms worsen as directed. 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 Age related macular degeneration Referring Physician: Gladys Kaiser, Family Medicine, Encounter Date: 10/01/2022 Results Created Date Observation Date Name Description Value Unit Range Abnormal Flag Note LastModifiedBy Organization Detail LastModifiedTime 12/03/1912/03/2023 CBC W/ AUTOD IFF, COMPL ETE BLOOD COUNT WBC 10.0 K/uL 3.6 - 10.0 Not Available [facility], [place], [address], 12/03/2023 15:28:03 12/03/19 24 12/03/2023 CBC W/ AUTOD IFF, COMPL ETE BLOOD COUNT RBC 4.3 M/uL 3.9 - 5.0 Not Available [facility], [place], [address], 12/03/2023 15:28:03 12/03/19 24 12/03/2023 CBC W/ AUTOD IFF, COMPL ETE BLOOD COUNT hemoglobin 12.0 g/dL 12.0 - 15.0 Not Available [facility] [address] [place], [place] [address], [place], [address], 12/03/2023 15:28:03 12/03/19 24 12/03/2023 CBC W/ AUTOD IFF, COMPL ETE BLOOD COUNT hematocrit 36.7 % 35.0 - 45.0 Not Available [facility], [place], [address], 12/03/2023 15:28:03 12/03/19 24 12/03/2023 CBC W/ AUTOD IFF, COMPL ETE BLOOD COUNT MCV 85.0 fL 80.0 - 99.0 Not Available [facility] [address] [place] [address] [address], [place], [address], 12/03/2023 15:28:03 12/03/19 24 12/03/2023 CBC W/ AUTOD IFF, COMPL ETE BLOOD COUNT MCH 27.8 pg 27.0 - 33.0 Not Available [facility], [place], [address], 12/03/2023 15:28:03 12/03/19 24 12/03/2023 CBC W/ AUTOD IFF, COMPL ETE BLOOD COUNT MCHC 32.7 g/dL 32.0 - 37.5 Not Available [facility] [address], [place], [address], 12/03/2023 15:28:03 12/03/19 24 12/03/2023 CBC W/ AUTOD IFF, COMPL ETE BLOOD COUNT RDW 15.3 % 11.0 - 15.0 high Not Available [facility] [address], [place], [address], 12/03/2023 15:28:03 12/03/19 24 12/03/2023 CBC W/ AUTOD IFF, COMPL ETE BLOOD COUNT nucleated RBC 0 % 0 - 2 Not Available [facility] [address], [place], [address], 12/03/2023 15:28:03 12/03/19 24 12/03/2023 CBC W/ AUTOD IFF, COMPL ETE BLOOD COUNT platelet 335 K/uL 140 - 440 Not Available [facility] [address], [place], [address], 12/03/2023 15:28:03 12/03/19 24 12/03/2023 CBC W/ AUTOD IFF, COMPL ETE BLOOD COUNT MPV 7.7 fL 7.4 - 10.4 Not Available [facility] [address], [place], [address], 12/03/2023 15:28:03 12/03/19 24 12/03/2023 CBC W/ AUTOD IFF, COMPL ETE BLOOD COUNT neutrophil, percentage 64.1 % Not Available [facility] [address], [place], [address], 12/03/2023 15:28:03 12/03/19 24 12/03/2023 CBC W/ AUTOD IFF, COMPL ETE BLOOD COUNT lymphocyte, percentage 26.4 % Not Available [facility] [address] [place], [place] [address], [place], [address], 12/03/2023 15:28:03 12/03/19 24 12/03/2023 CBC W/ AUTOD IFF, COMPL ETE BLOOD COUNT monocyte, percentage 4.8 % Not Available [facility] [address] [place], [place] [address], [place], [address], 12/03/2023 15:28:03 12/03/19 24 12/03/2023 CBC W/ AUTOD IFF, COMPL ETE BLOOD COUNT eosinophil, percentage 3.8 % Not Available [facility] [address] [place], [place] [address], [place], [address], 12/03/2023 15:28:03 12/03/19 24 12/03/2023 CBC W/ AUTOD IFF, COMPL ETE BLOOD COUNT basophil, percentage 0.9 % Not Available [facility] [address] [place], [place] [address], [place], [address], 12/03/2023 15:28:03 12/03/19 24 12/03/2023 CBC W/ AUTOD IFF, COMPL ETE BLOOD COUNT neutrophil, absolute 6.4 K/uL 1.5 - 7.5 Not Available [facility] [address] [place], [place] [address], [place], [address], 12/03/2023 15:28:03 12/03/19 24 12/03/2023 CBC W/ AUTOD IFF, COMPL ETE BLOOD COUNT lymphocyte, absolute 2.6 K/uL 0.8 - 4.0 Not Available [facility] [address] [place], [place] [address], [place], [address], 12/03/2023 15:28:03 12/03/19 24 12/03/2023 CBC W/ AUTOD IFF, COMPL ETE BLOOD COUNT monocyte, absolute 0.5 K/uL 0.1 - 1.0 Not Available [facility] [address], [place], [address], 12/03/2023 15:28:03 12/03/19 24 12/03/2023 CBC W/ AUTOD IFF, COMPL ETE BLOOD COUNT eosinophil, absolute 0.4 K/uL 0.1 - 1.0 Not Available [facility] [address] [facility] [address], [place], [address], 12/03/2023 15:28:03 12/03/19 24 12/03/2023 CBC W/ AUTOD IFF, COMPL ETE BLOOD COUNT basophil, absolute 0.1 K/uL 0.0 - 0.2 Not Available [facility] [address] [facility] [address], [place], [address], 12/03/2023 15:28:03 12/03/19 24 12/03/2023 TSH, THYRO ID STIMU LATIN G HORMO NE TSH 2.1400 uIU/m L 0.2700 - 4.2000 Not Available [facility] [address] [facility] [place] [address] [place], [address], 12/03/2023 15:54:33 12/03/19 24 12/03/2023 VITAM IN B12 & FOLAT E vitamin B-12 820 pg/mL 232 - 1245 Not Available [facility] [address] [facility] [address], [place], [address], 12/03/2023 17:20:01 12/03/19 24 12/03/2023 VITAM IN B12 & FOLAT E folate 9.59 NG/mL >3.10 A serum Folat e ruben ntrat ion of < 3.1 ng/ml is consi dered to repre sent clini matt defic iency . Not Available [facility] [address], [place], [address], 12/03/2023 17:20:01 12/03/19 24 12/03/2023 CMP, COMPR EHENS CANDICE METAB OLIC PANEL glucose 84 mg/dL 70 - 100 Not Available [facility] [address] [facility] [facility] [address], [place], [address], 12/03/2023 17:36:07 12/03/19 24 12/03/2023 CMP, COMPR EHENS CANDICE METAB OLIC PANEL BUN 24 mg/dL 7 - 25 Not Available [facility] [address] [facility] [address], [place], [address], 12/03/2023 17:36:07 12/03/19 24 12/03/2023 CMP, COMPR EHENS CANDICE METAB OLIC PANEL creatinine 0.6 mg/dL 0.6 - 1.3 Not Available [facility] [address] [facility] [address], [place], [address], 12/03/2023 17:36:07 12/03/19 24 12/03/2023 CMP, COMPR EHENS CANDICE METAB OLIC PANEL BUN/creatini ne ratio 39 calc 10 - 25 high Not Available [facility] [address] [facility] [address], [place], [address], 12/03/2023 17:36:07 12/03/19 24 12/03/2023 CMP, COMPR [...] inine resul t go to: [email or web address] :[email or web address] ofess ional s/kdo qi/gf r&[email or web address] alcul ator. Not Available [facility] [address] [facility] [address], [place], [address], 12/03/2023 17:36:07 12/03/19 24 12/03/2023 CMP, COMPR EHENS CANDICE METAB OLIC PANEL sodium 143 mmol/ L 135 - 145 Not Available [facility] [address] [facility] [address], [place], [address], 12/03/2023 17:36:07 12/03/19 24 12/03/2023 CMP, COMPR EHENS CANDICE METAB OLIC PANEL potassium 4.6 mmol/ L 3.5 - 5.5 Not Available [facility] [address] [facility] [address], [place], [address], 12/03/2023 17:36:07 12/03/19 24 12/03/2023 CMP, COMPR EHENS CANDICE METAB OLIC PANEL chloride 105 mmol/ L 100 - 115 Not Available [facility] [address] [facility] [address], [place], [address], 12/03/2023 17:36:07 12/03/19 24 12/03/2023 CMP, COMPR EHENS CANDICE METAB OLIC PANEL CO2 29 mmol/ L 21 - 33 Not Available [facility] [address], [place], [address], 12/03/2023 17:36:07 12/03/19 24 12/03/2023 CMP, COMPR EHENS CANDICE METAB OLIC PANEL calcium 8.7 mg/dL 8.8 - 10.6 low Not Available [facility] [address] [facility] [facility] [address], [place], [address], 12/03/2023 17:36:07 12/03/19 24 12/03/2023 CMP, COMPR EHENS CANDICE METAB OLIC PANEL total protein 6.4 g/dL 6.2 - 8.6 Not Available [facility] [address] [place], [place] [address], [place], [address], 12/03/2023 17:36:07 12/03/19 24 12/03/2023 CMP, COMPR EHENS CANDICE METAB OLIC PANEL globulin 2.4 g/dL 1.3 - 4.0 Not Available [facility] [address] [place], [place] [address], [place], [address], 12/03/2023 17:36:07 12/03/19 24 12/03/2023 CMP, COMPR EHENS CANDICE METAB OLIC PANEL albumin 4.0 g/dL 3.5 - 5.7 Not Available [facility] [address] [place], [place] [address], [place], [address], 12/03/2023 17:36:07 12/03/19 24 12/03/2023 CMP, COMPR EHENS CANDICE METAB OLIC PANEL A/G ratio 1.6 calc 1.0 - 2.8 Not Available [facility] [address] [place] [address] [address], [place], [address], 12/03/2023 17:36:07 12/03/19 24 12/03/2023 CMP, COMPR EHENS CANDICE METAB OLIC PANEL AST (SGOT) 14 U/L 13 - 39 Not Available [facility] [address] [place] [address] [address], [place], [address], 12/03/2023 17:36:07 12/03/19 24 12/03/2023 CMP, COMPR EHENS CANDICE METAB OLIC PANEL ALT (SGPT) 15 U/L 7 - 52 Not Available [facility] [address] [place], [place] [address]y [address], [place], [address], 12/03/2023 17:36:07 12/03/19 24 12/03/2023 CMP, COMPR EHENS CANDICE METAB OLIC PANEL alkaline phosphatase 62 U/L 20 - 128 Not Available [facility] [address] [facility] [address] [place], [address], 12/03/2023 17:36:07 12/03/19 24 12/03/2023 CMP, COMPR EHENS CANDICE METAB OLIC PANEL total bilirubin 0.5 mg/dL 0.3 - 1.0 Not Available [facility] [address] [facility] [address] [place], [address], 12/03/2023 17:36:07 12/03/19 24 12/03/2023 LIPID PANEL W/ CALCU LATED LDL HDL cholestrol 77 mg/dL 23 - 92 Not Available [facility] [address] [facility] [address] [place], [address], 12/03/2023 17:36:09 12/03/19 24 12/03/2023 LIPID PANEL W/ CALCU LATED LDL cholesterol 218 mg/dL <200 high Expec ene resul ts for Adult s: Total Mihaela stero l: Risk class ifica tion < 200 mg/dL Lynnette able 200-2 39 mg/dL Borde rline high >240 mg/dL High Not Available [facility] [address] [facility] [address] [place], [address], 12/03/2023 17:36:09 12/03/19 24 12/03/2023 LIPID PANEL W/ CALCU LATED LDL triglyceride 95 mg/dL 30 - 150 Not Available [facility] [address] [facility] [address] [place], [address], 12/03/2023 17:36:09 12/03/19 24 12/03/2023 LIPID PANEL W/ CALCU LATED LDL non-HDL cholesterol 141 mg/dL <130 high Lynnette able < 130 mg/dL Not Available [facility] [address] [facility] [address] [place], [address], 12/03/2023 17:36:09 12/03/19 24 12/03/2023 LIPID PANEL W/ CALCU LATED LDL chol/HDL risk ratio 3 calc < 5.0 Optim al Not Available [facility] [address], [place], [address], 12/03/2023 17:36:09 12/03/19 24 12/03/2023 LIPID PANEL W/ CALCU LATED LDL LDL calculated 122 mg/dL 0 - 99 high Not Available [facility] [address], [place], [address], 12/03/2023 17:36:09 12/03/19 24 12/03/2023 VENIP UNCTU RE results Compl ete Not Available [facility] [address], [place], [address], 12/03/2023 08:46:38 10/14/19 23 10/13/2022 CT, coron [...] is high. Recomm end additi onal testin namita Electr onical ly signed by: Glenroy Berg 023 7:13 PM Electr onical ly Signed By: Caden Mike Michae l Sign Date: [id number] [facility] All Locations, [place], [address], 08/05/2024 19:41:24 12/03/1912/02/2023 US, lower extre mity, nonva scula r, [...] Renetta mascorro D.O., Paul Sign Date: [email or web address] [facility] All Locations, [place], [address], 09/28/2024 14:10:51 Result Notes Documentation Provider Name and Address Organization Details Recorded Time Ct, Coronary Calcium Score : EXAM: CT Heart Screen without contrast TECHNIQUE: Multi-slice helical CT images were obtained for evaluation of the coronary arteries. The calcification score for each artery is proportional to the amount of calcium in the coronary vessel wall. All CT scans are performed using radiation dose reduction techniques. Technical factors are evaluated and adjusted to ensure appropriate moderation of exposure. FINDINGS: Coronary artery calcium score as follows. Score Range is 0 to 10,000. Left main artery (LM): 0 Left anterior descending artery (LAD): 0 Left circumflex artery (LCX): 0 Right coronary artery (RCA): 0 Total score: 0 Limited imaging through the mediastinal region demonstrates visualized lung lemus to appear without sizable pleural effusion. Minor opacities in the lingula may reflect atelectasis. No sizable pericardial effusion. No convincing lymphadenopathy. Degenerative changes dorsal spine. Small sliding-type hiatal hernia. IMPRESSION: 1. The total coronary artery calcium (Agatston) score is 0. 2. A coronary calcium score of 0 places this patient in the 0th percentile rank. That means 100% of the female with ages 66 to 70 will have a higher calcium scores than this patient. 3. Regardless of the test results, it is highly recommended that the patient discuss the findings with his/her physician(s). 4. Calcific atherosclerotic plaques are present in the aorta. NOTES: The scores and percentile ranking reported here are intended to enable the physician to better evaluate a patient's risk of developing symptomatic coronary artery disease. A full evaluation of cardiac risk should include an assessment of all conventional risk factors. The scores and percentile rankings reported herein should be evaluated in this context. The following table provides a general guideline for the interpretation of the results. Calcium Score Interpretation 0 No evidence of plaque. The patient's risk of a heart attack is very low. 1 - 10 A small amount of plaque is noted. The patient's risk of a heart attack is low. 11 - 100 Plaque is present. The patient has coronary artery disease, but only mild hardening in the coronary arteries. The patient's risk for a heart attack is moderate. 101 - 400 Plaque is present in a moderate amount. The patient has coronary artery disease and plaque may be blocking a coronary artery. The patient's risk for heart attack is moderate to high. Consider additional testing. Over 400 Plaque is extensive. The patient has coronary artery disease and there is a high chance that plaque may be blocking one or more of the coronary arteries. The patient's risk is high. Recommend additional testing. Electronically signed by: Glenroy Berg 10/13/2022 7:13 PM Electronically Signed By: Caden Mike Michael Sign Date: 14-OCT-22 Not Available [facility] 08/05/2024 20:05:33 Problems Name Problem SNOMED Code Status Onset Date Resolution Date Notes Provider Name and Address Organization Details Recorded Time Senile osteoporosis 51319874 Active 2022 GLADYS KAISER, DO [address], [place], [address], [facility], [facility] 3 23:39:07 Hyperlipidemia 01785772 Active 2022 GLADYS KAISER, DO [address], [place], [address], [facility], [facility] 3 23:39:09 Cobalamin deficiency 199501842 Active 2022 GLADYS KAISER, DO [address], [place], [address], [facility], [facility] 3 23:39:10 Osteoporosis 32940133 Active 2022 GLADYS KAISER, DO [address], [place], [address], [email or web address] Phys[facility], [facility] 3 23:39:12 Age related macular degeneration 875146957 Active 2022 GLADYS KAISER, DO [address], [place], [address], [email or web address] Phys[facility], [facility] 3 23:39:13 Gastroesophage al reflux disease 836658658 Active 2022 GLADYS KAISER, DO [address], [place], [address], [facility] Physician [facility], [facility] 3 23:39:15 Allergic rhinitis 24626381 Active 2022 GLADYS KAISER, DO [address], [place], [address], [facility] Physician [facility], [facility] 3 23:39:16 Paroxysmal atrial fibrillation 917891856 Active 2022 GLADYS KAISER, DO [address], [place], [address], [facility] Physician [facility], [facility] 3 23:39:18 Supraventricul ar tachycardia 5218623 Active 2022 GLADYS KAISER, DO [address], [place], [address], [facility] Physician [facility], [facility] 23:39:18 Problem Notes None recorded. Procedures Surgical History Date Name Laterality Status Provider Name and Address Organization Details Recorded Time 11/20/19 24 Cardiac Catherization completed Elizabeth [facility], [facility] 12/01/2023 14:22:58 10/01/19 23 Prolia completed Dong Frey [facility], [facility] 10/01/2022 11:22:58 09/12/20 22 Colonoscopy completed GLADYS KAISER DO [address], [place], [address], [facility] Physician [facility], [facility] 10/01/2022 10:48:52 12/31/19 22 Date of Last Mammogram completed Rosa Matson [facility] Physician [facility], [facility] 10/01/2022 09:56:00 12/31/19 22 Mammogram Screening completed GLADYS KAISER DO [address], [place], [address], [facility] Physician [facility], [facility] 10/01/2022 10:48:08 subtotal thyroidectomy completed GLADYS KAISER DO [address], [place], [address], [facility], [facility] 10/01/2022 10:54:14 Cholecystectomy completed Elizabeth Ha [facility], [facility] 12/01/2023 14:20:37 Colonoscopy completed Elizabeth SAMUEL - [facility], [facility] 12/01/2023 14:20:37 Hysterectomy completed Elizabeth SAMUEL - [facility], [facility] 12/01/2023 14:20:38 Other completed [facility], [facility] 12/01/2023 14:20:38 Thyroidectomy completed Elizabeth Ha [facility], [facility] 12/01/2023 14:20:38 Sinus Surgery completed [facility], [facility] 12/01/2023 14:20:38 Mammogram Screening completed Elizabeth Ha [facility] Physician [facility], [facility] 12/01/2023 14:20:38 fixation of tendon of foot and/or ankle completed GLADYS KAISER DO [address], [place], [address], [facility] Physician [facility], [facility] 12/01/2023 14:41:48 Imaging Results None recorded. Procedure Notes None recorded. Medical Equipment None Reported. Allergies Allergen ID Allergen Name Allergen Category Reaction Reaction Severity Criticality Documentation Date Start Date Code Code System Note Provider Name and Address Organization Details Recorded Time 7485630 egg extract food,medi cation edema Not available Not available 10/01/2022 86817 15 RxNorm GLADYS KAISER DO [address], [place], [address], [facility], [facility] 10:34:23 Medications Name Sig Start Date Stop [...] 137 mcg-flutica sone 50 mcg/spray nasal spray Dozier 1 spray twice a day by intranasa [...] Arterial blood by Pulse oximetry Heart rate Systolic And Diastolic Provider Name and Address Organization Details Last Updated DateTime 5 154.94 cm 33.6 kg/m2 97150.4 4 g 97.4 [degF] 98 % 98 % 66 /min 118/80 mm[Hg] Nolvia Mejia [facility], [facility] 5 13:17:46 Date Recorded Body weight Body mass index (BMI) Body height Oxygen saturation Oxygen saturation in Arterial blood by Pulse oximetry Respiratory rate Heart rate Body temperature Systolic And Diastolic Provider Name and Address Organization Details Last Updated DateTime 3 27760.8 4 g 32.7 kg/m2 154.94 cm 99 % 99 % 18 /min 60 /min 98.2 [degF] 108/70 mm[Hg] Rosa Matson [place] - [facility], [facility] 3 10:04:14 Date Recorded Body height Respiratory rate Body mass index (BMI) Body weight Oxygen saturation Oxygen saturation in Arterial blood by Pulse oximetry Heart rate Body temperature Systolic And Diastolic Provider Name and Address Organization Details Last Updated DateTime 5 154.94 cm 18 /min 33.6 kg/m2 75795.4 4 g 97 % 97 % 76 /min 98.4 [degF] 126/78 mm[Hg] Neisha Lutz [facility], [facility] 5 09:52:48 Date Recorded Body height Body mass index (BMI) Body weight Heart rate Oxygen saturation Oxygen saturation in Arterial blood by Pulse oximetry Body temperature Systolic And Diastolic Provider Name and Address Organization Details Last Updated DateTime 4 154.94 cm 33.9 kg/m2 14743.8 3 g 68 /min 96 % 96 % 97.3 [degF] 136/82 mm[Hg] Elizabeth [facility] 4 14:13:50 Social History Question Answer Notes LastModified by ooma Details LastModified Time Tobacco Smoking Status Former Smoker Rosa bell [facility] 10/01/2022 09:56:11 Do You Have An Advance Directive? No Information not available 10/01/2022 Is Blood Transfusion [...] Sexually Active? No Information not available 10/01/2022 Sex: Female Functional Status Question Answer Note LastModified by ooma Details LastModified Time What is your level of alcohol consumption? Occasional Information not available 10/01/2022 Do you or have you ever used smokeless tobacco? Never used smokeless tobacco Information not available 10/01/2022 What is your exercise level? Moderate Information [...] dlawston Not available 2022 09:55:45 Sister Arthritis dlawston Not availabl e 10/01/2022 09:55:45 Medical History [...] SNOMED-CT Code Diagnosis ICD10 Code Diagnosis Note [id number] GLADYS KAISER, DO [facility] [address] [place] [address] 10/01/2022 09:46:51 10/01/2022 10:59:19 Supraventricular tachycardia 5394089 I47.1 Chronic. Patient states on previous loop recorder is noted to have SVT along with her A. fib which is paroxysmal . Paroxysmal atrial fibrillation 851450182 I48.0 Chronic. Stable with medication s. Following with cardiology . Osteoarthritis 436569772 M19.90 Chronic. Stable w/ meds. Allergic rhinitis 801142 04 J30.9 Chronic stable with medication s. Does seem to be seasonal and duration. Gastroesop hageal reflux disease 264600517 K21.9 Chronic. Stable with medication s. Due to lifelong issues with Celebrex I recommend staying on H2 kendal or PPI. Age relate d macular degeneration 315012514 H35.30 Chronic. Stable with injections . Patient does need to get establishe d here for evaluation s with renal doctor. Osteoporosis 74030112 M8 1.0 . Stable with Prolia injections for numerous years offered refill today patient will look at rescheduli ng and follow-up. Cobalamin deficiency 190 950520 E53.8 Chronic. Stable with oral replacemen t. Hyperlipidemia 94245642 E78.5 Chronic problem, unstable - not at LDL goal. Needs monitoring . Prescripti on drug management : Pt refuses rx. Wants opportunit y to get numbers down through alternativ e methods. Understand s increased statistica l increased risk of stroke, heart attack and . Improve therapeuti c lifestyle changes and/or medication s to maintain an LDL below 100. Periodic visits and labs and appropriat e therapeuti c changes will occur to help meet this goal to minimize risk of atheroscle rotic disease. Recheck labs as ordered. Senile osteoporosis 1804 0001 M81.0 Chronic. Stable. Will CTM. [id number] GLADYS KAISER DO [facility] [address] [place] [address] 12/01/2023 14:06:45 12/01/2023 15:48:13 Traumatic hematoma 632900893 T14.8XXD Acute traumatic hematoma due to cardiac catheteriz ation. No signs of infection at this point we will get a ultrasound to follow-up on this and patient under ER precaution s as well as return precaution s discussed. [id number] GLADYS KAISER DO [facility] [address] [place] [address] 09/28/2024 13:08:55 09/28/2024 14:19:43 Dysfunction of left eustachian tube 9579245473 197552 H69.92 Acute. PT does have a eustachian tube disorder and nasal congestion . Will start meds and f/u. [id number] Nehemias Bocanegra APRN [facility] [address] [place] [address] 11/13/2024 09:43:35 11/13/2024 12:47:26 Cough 48876954 R05.9 Rhinitis 60032519 J00 Environmental allergy 42 6449870 T78.49XA Acute sinusitis 26558176 J01.90 positive recurrent sinus infection. start on [...] None Recorded Advance Directives Directive N: Payers Insurance Date Sequence Insurance Name Policy Number Policy Conde Covered Member ID Conde Member ID Guarantor Name 11/13/2024 1 [facility] (MEDICARE REPLACEMENT/A DVANTAGE - PPO) [id number] Clinton Thomas [id number] Clinton Thomas 10/14/2022 1 *SELF PAY* , Hitesh Stratton Notes Date Note Type Note Provider Name [...] meals Current symptoms/concerns:none stated QUALITY MEASURE QUESTIONNAIRE Are you a diabetic patient No Has the Patient previously received any type of colorectal cancer screener Yes Please confirm which of the following colorectal screeners the Patient has received in the past Colonoscopy Please enter the date you received your last Colonoscopy 09/12/2022 Colonoscopy Result Negative Mammogram Results Negative Has the Patient had a bone density testing performed before Yes Has the Patient been diagnosed as having osteoporosis Yes Imported from [facility] on 10/01/2022 GLADYS KAISER DO [address], [place], [address], [place] Marley Spoon 10/05/2022 23:39:32 12/01/2023 text/html QUALITY MEASURE QUESTIONNAIRE Has the Patient had a fracture in the last year No Imported from [facility] on 12/01/2023 The patient is here today [...] in for further evaluation. GLADYS KAISER DO [address], [employer], [address], [place], [place] 12/02/2023 09:51:56 09/28/2024 text/html Ear ComplaintRep orted bypatient.Reason for visit:acute complaint Location:left ear Quality:pain; hearing loss Severity:unchanged Duration:constant Onset/Timing:abrupt;4 days ago Context:recent exposure to ill contacts;recent air travel Alleviating factors:nothing; sneezing Aggravating factors:nothing Associated Symptoms:head congestion; no fever; no swollen lymph nodes; no exudates; no jaw pain GLADYS KAISER DO [address], [employer], [address], [place], [place] 09/28/2024 14:11:41 11/13/2024 text/html 69 y o f present s states that she was treated for sinus infection still has ear pain sinus pressure mild cough denies fever Nehemias Bocanegra, TEXTILE MACHINERY SALES REPRESENTATIVE [address], [place], [address], [facility] - [facility], [facility] 11/13/2024 10:24:38 OBGyn Episode No OBEpisode recorded.
--- OUTSIDE RECORDS SUMMARY | 2025-03-21 13:23 | XMS_ITS | Clinical Summary ---
Author Organization [facility] Address [address] [place] [address] Phone Care Team Providers Care Cobol Developer Name Role Phone Louis Quijano Primary Care Provider Encounters Date Type Department Care Team Description 02/02/2025 8:08 AM EDT - 02/02/2025 11:59 PM EDT Hospital Encounter [facility] [address] [place] [phone] Age-related osteoporosis without current pathological fracture Discharge Disposition: Home or Self Care 02/02/2025 7:51 AM EDT - 02/02/2025 11:59 PM EDT Hospital Encounter [facility] [address] [place] [address] Age-related osteoporosis without current pathological fracture Discharge Disposition: Home or Self Care 01/12/2025 9:29 AM EDT - 01/12/2025 11:59 PM EDT [facility] [address] [address] Encounter for screening mammogram for breast cancer [...] Vaccine ( season) 2024 08/27/2021, 12/03/2020, 11/05/2020 Influenza Vaccine (#1) 2025 , 06/24/2022, 06/13/2022, Additional history exists Breast Cancer Screening 01/12/2027 01/13/20, 01/11/2024, 01/07/2023, Additional history exists DTaP,Tdap,and Td Vaccines (2 - Td or Tdap) 05/04/2031 05/04/2021 Osteoporosis Screening (Bone Density Screening) 02/02/2035 02/02/2025, 02/02/2025, 01/07/2023, Additional history exists HIB Vaccines Aged Out [...] since the prior examination of 01/07/2023. Code 90894 -------- FINAL REPORT -------- Dictated By: Bam Sanchez Dictated Date: 02/03/2025 07:47 ET Assigned Physician: Bam Sanchez Reviewed and Electronically Signed By: Bam Sanchez Signed Date: 02/03/2025 07:49 ET Workstation ID: [id number] Transcribed By: Self Edit Transcribed Date: 02/03/2025 [...] since the prior examination of 01/07/2023. Code 01988 -------- FINAL REPORT -------- Dictated By: Bam Sanchez Dictated Date: 02/03/2025 07:47 ET Assigned Physician: Bam Sanchez Reviewed and Electronically Signed By: Bam Sanchez Signed Date: 02/03/2025 07:49 ET Workstation ID: [id number] Transcribed By: Self Edit Transcribed Date: 02/03/2025 [...] probability of hip fracture of 3.6%. Code 33205 -------- FINAL REPORT -------- Dictated By: Bam Sanchez Dictated Date: 02/03/2025 07:50 ET Assigned Physician: Bam Sanchez Reviewed and Electronically Signed By: Bam Sanchez Signed Date: 02/03/2025 07:51 ET Workstation ID: [id number] Transcribed By: Self Edit Transcribed Date: 02/03/2025 [...] density of the femurs bilaterally is 0.806 gm/tw3gxkrh is 80% of that of young normals [...] probability of hip fracture of 3.6%. Code 60738 -------- FINAL REPORT -------- Dictated By: Bam Sanchez Dictated Date: 02/03/2025 07:50 ET Assigned Physician: Bam Sanchez Reviewed and Electronically Signed By: Bam Sanchez Signed Date: 02/03/2025 07:51 ET Workstation ID: [id number] Transcribed By: Self Edit Transcribed Date: 02/03/2025 [...] year. Mammo Location: [facility], [address] [place] [address], [address], . -------- FINAL REPORT -------- Dictated By: Demetra Meadows Dictated Date: 01/12/2025 15:21 ET Assigned Physician: Demetra Meadows Reviewed and Electronically Signed By: Demetra Meadows Signed Date: 01/12/2025 15:26 ET Workstation ID: [id number] Transcribed By: Self Edit Transcribed Date: 01/12/2025 [...] been no significant change from prior exam(s). support architect in the left medial breast. BREAST DENSITY: [...] has been no significantchange from prior exam(s). support architect in the left medialbreast. BREAST DENSITY: B - There are scattered areas of fibroglandular density. IMPRESSION: No evidence of breast malignancy. BI-RADS CATEGORY: 1 - NEGATIVE RECOMMENDATION: Screening bilateral mammogram is recommended in 1 year. Mammo Location: [facility], [address] [place] [address], [address], . -------- FINAL REPORT -------- Dictated By: Demetra Meadows Dictated Date: 01/12/2025 15:21 ET Assigned Physician: Demetra Meadows Reviewed and Electronically Signed By: Demetra Meadows Signed Date: 01/12/2025 15:26 ET Workstation ID: [id number] Transcribed By: Self Edit Transcribed Date: 01/12/2025 15:21 ET us Self Referral Sppl IMG BI PROCEDURES Final Resul t from Last 3 Months Insurance [employer] MEDICARE Care Teams Cobol Developer Relationship Specialty Start Date End Date Louis Quijano PA PCP - General Physician Therapist Respiratory 01/12/25
== END 2025-03-21 14:57 | disposition home or self-care (01) ==
LOC: HO.HNS 12:41
PROVIDERS: PCP Physician Assistant; Referring Provider Registered Nurse Emergency; Visit Provider Physician Assistant
DX: M43.10 Spondylolisthesis, site unspecified (principal)
CPT/HCPCS: 99205

== ENCOUNTER → 2025-03-21 12:40 | Outpatient (BNVA) | payer MEDICARE, SELFPAY | PROVIDERS: PCP Physician Assistant; Visit Provider Physician Assistant | DX: M54.12 Radiculopathy, cervical region (principal); M43.16 Spondylolisthesis, lumbar region; M48.061 Spinal stenosis, lumbar region without neurogenic claudication; M51.360 Other intervertebral disc degeneration, lumbar region with discogenic back pain only | CPT/HCPCS: 99202 ==

== ENCOUNTER → 2025-04-03 07:53 | Outpatient (BNV) | payer MEDICARE, SELFPAY | PROVIDERS: PCP Physician Assistant; Visit Provider Radiology Diagnostic Radiology | DX: M50.322 Other cervical disc degeneration at C5-C6 level (principal); M48.02 Spinal stenosis, cervical region | CPT/HCPCS: 72141 ==

== ENCOUNTER 2025-04-03 07:56 | Outpatient (REF) | payer MEDICARE, SELFPAY ==
--- NOTE | ~2025-04-03 | MR_ITS ---
EXAMINATION: MR CERVICAL SPINE WITHOUT CONTRAST CLINICAL INFORMATION: Radiculopathy. COMPARISON: None available. TECHNIQUE: MRI of the cervical spine was obtained using routine sequences without contrast. FINDINGS: There is maintained cervical lordosis. Grade 1 anterolisthesis C3 over C4 and C4 over C5 is noted. Rest of the vertebral alignment is normal. There is loss of C4-5 disc height. Mild disc desiccation changes are present from C2-3 through C5-6 disc level. At C2-3 and C3-4 disc level there is no disc bulge, herniation or spinal stenosis. The spinal canal is capacious there. The neural foramina are patent bilaterally. Mild anterolisthesis C3-C4 is noted. At C4-C5 disc level there is anterolisthesis with mild diffuse bulge with mild AP canal stenosis. There is mild narrowing of bilateral neural foramina. At C5-C6 disc level there is moderate AP canal stenosis with complete effacement of ventral thecal sac from underlying combination of disc bulge/osteophyte complex. There is bilateral narrowing of neural foramina from uncovertebral hypertrophic changes. A C6-C7 disc level there is mild AP canal stenosis with underlying diffuse disc bulge. The neural foramina are patent bilaterally. At C7-T1 disc level there is minimal central bulge but no spinal canal stenosis. The neural foramina are patent bilaterally. The bone marrow signal, cord signal and cervical-medullary junction is normal. MR/MR cervical spine wo con IMPRESSION: Grade 1 anterolisthesis C3 over C4 and C4 over C5 disc levels. Degenerative disc changes with posterior spondylosis/bulge complex C5-6 disc levels with moderate AP canal stenosis and bilateral neural foraminal narrowing. Mild disc bulge C6/7 disc with AP canal stenosis. Electronically signed by: Fazal Bravo MD 04/03/2025 12:56 PM EDT
--- OUTSIDE RECORDS SUMMARY | 2025-04-03 08:07 | XMS_ITS | Encounter Summary ---
Author Organization [facility] Address [address] [facility] [address] [facility] [address] [place] [address] Phone Care Team Providers Care Piercing Artist Name Role Phone Rd Lowery MD Primary Care Provider [phone] Encounter Details Date Type Department Care Team (Late st Contact Info) Description 01/26/2020 Ancillary Orders [facility],Outside Imaging [address] [place] [address] System, Provider Not In, [place] [address] Social History Tobacco Use Types Packs/Day Years Used Date Smoking Tobacco: Former Cigarettes Q uit: 2009 Smokeless Tobacco: Never Comments Unknown Sex and Gender Information Value Date Recorded Sex Assigned at Not on file Legal Sex Female 10:35 PM EDT Gender Identity Not on file Sexual Orientation Not on file documented as of this encounter Plan of Treatment Not on file documented as of this encounter Results * CT Chest Outside (No Interpretation) (08/04/2018 12:00 AM EST) Narrative SYSTEMGENERATED, DOCUMENTATION - 01/26/2020 10:37 AM EDT This study is for PACS storage only and not for interpretation. us Provider Not In System PhD IMG OUTSIDE IMAGING W /OUT INTERPRETATION Final Result documented in this encounter Visit Diagnoses Not on filedocumented in this encounter Care Teams Piercing Artist Relationship Specialty Start Date End Date Rd Lowery MD [email or web address] PCP - General Internal Medicine 04/16/18 documented as of this encounter Additional Source Comments The information contained in this document represents components of the legal health record. It is not the complete legal health record.[facility]
--- OUTSIDE RECORDS SUMMARY | 2025-04-03 08:07 | XMS_ITS | Patient Health Record ---
Author Organization [facility] Address [address] [place] [address] Care Team Providers Care Land Surveying Survey Worker Name Role Phone Nataliia Hinojosa MD Primary Care Provider Javier Velázquez Unavailable [phone] Allergies Allergen (clinical drug ingredient) Drug/Non Drug [...] Problem Status W/U Status Risk Notes Problem 808805249 Colon cancer screening (Z12.11) Active confirmed Problem Diverticular disease of colon (867313365) Diverticulosis of large intestine without perforation or abscess without bleeding (K57.30) Active confirmed Problem 411179095 Gastroesophageal reflux disease with esophagitis (K21.0) Active confirmed Problem 793608580 Gastroesophageal reflux disease without esophagitis (K21.9) Active confirmed Problem 673325299072705 Preprocedural examination (Z01.818) Active confirmed Problem 26107461 Hiatal hernia (K44.9) Active confirmed Problem 45201618 Irritable bowel syndrome, unspecified type (K58.9) Active confirmed Plan Of Treatment Future Test Test Name Order Date UPPER GI ENDOSCOPY 06/10/2011 COLONOSCOPY 06/10/2011 UPPER GI ENDOSCOPY 08/05/2019 COLONOSCOPY 09/09/2022 Insurance Providers Payer Name Payer Address Payer Phone Subscriber Number Group Number Insured Name Patient Relationship to Insured Coverage Start Date Coverage End Date [facility] [address] [place] [address] [id number] NHUNG Garibay STEFANIE Self - patient is [...] in 2001 and in 2006 Hyperlipidemia Denies TN,DM,CVA,Lung disease,renal dise ase A.fib--bow maker-Dr. Green Osteoarthritis Asthma Colonoscopy November 2011 with [...] surgery is schedu led for 09/28/19 at [facility] Benign breast biopsies Thyroid surgery precancerous --right lo be removed Midfoot fusion surgery-right --05/2022--wearing a boot on the foot as of the 08/2022 OV
--- OUTSIDE RECORDS SUMMARY | 2025-04-03 08:07 | XMS_ITS | Clinical Summary ---
Author Organization [facility] Address [address] [place] [address] Phone Care Team Providers Care Form Grader Operator Name Role Phone Louis Quijano Primary Care Provider Encounters Date Type Department Care Team Description 02/02/2025 8:08 AM EDT - 02/02/2025 11:59 PM EDT Hospital Encounter [facility] [address] [place] [phone] Age-related osteoporosis without current pathological fracture Discharge Disposition: Home or Self Care 02/02/2025 7:51 AM EDT - 02/02/2025 11:59 PM EDT Hospital Encounter [facility] [address] [place] [phone] Age-related osteoporosis without current pathological fracture Discharge Disposition: Home or Self Care 01/12/2025 9:29 AM EDT - 01/12/2025 11:59 PM EDT [facility] [address] [address] Encounter for screening mammogram for breast cancer [...] (2 of 2 - PCV) 07/14/2022 07/14/2021 Cholesterol Screening (Lipid Panel) 08/17/2022 Colorectal Cancer Screening: Colonoscopy 08/17/2022 Falls Risk Assessment 08/17/2022 Hepatitis C Screening 08/17/2022 Medicare Annual Wellness Visit 08/17/2022 Social Influencers of Health Screening 08/17/2022 COVID-19 Vaccine ( season) 2024 08/27/2021, 12/03/2020, 11/05/2020 Depression Screening 09/14/2024 Influenza Vaccine (#1) 2025 , 06/24/2022, 06/13/2022, [...] since the prior examination of 01/07/2023. Code 73024 -------- FINAL REPORT -------- Dictated By: Bam Sanchez Dictated Date: 02/03/2025 07:47 ET Assigned Physician: Bam Sanchez Reviewed and Electronically Signed By: Bma Sanchez Signed Date: 02/03/2025 07:49 ET Workstation ID: [id number] Transcribed By: Self Edit Transcribed Date: 02/03/2025 [...] since the prior examination of 01/07/2023. Code 70893 -------- FINAL REPORT -------- Dictated By: Bam Sanchez Dictated Date: 02/03/2025 07:47 ET Assigned Physician: Bam Sanchez Reviewed and Electronically Signed By: Bam Sanchez Signed Date: 02/03/2025 07:49 ET Workstation ID: [id number] Transcribed By: Self Edit Transcribed Date: 02/03/2025 [...] probability of hip fracture of 3.6%. Code 16450 -------- FINAL REPORT -------- Dictated By: Bam Sanchez Dictated Date: 02/03/2025 07:50 ET Assigned Physician: Bam Sanchez Reviewed and Electronically Signed By: Bam Sanchez Signed Date: 02/03/2025 07:51 ET Workstation ID: [id number] Transcribed By: Self Edit Transcribed Date: 02/03/2025 [...] density of the femurs bilaterally is 0.806 gm/la7wfxbd is 80% of that of young normals [...] probability of hip fracture of 3.6%. Code 53288 -------- FINAL REPORT -------- Dictated By: Bam Sanchez Dictated Date: 02/03/2025 07:50 ET Assigned Physician: Bam Sanchez Reviewed and Electronically Signed By: Bam Sanchez Signed Date: 02/03/2025 07:51 ET Workstation ID: [id number] Transcribed By: Self Edit Transcribed Date: 02/03/2025 [...] year. Mammo Location: [facility], [address] [place] [address], [address], . -------- FINAL REPORT -------- Dictated By: Demetra Meadows Dictated Date: 01/12/2025 15:21 ET Assigned Physician: Demetra Meadows Reviewed and Electronically Signed By: Demetra Meadows Signed Date: 01/12/2025 15:26 ET Workstation ID: [id number] Transcribed By: Self Edit Transcribed Date: 01/12/2025 [...] been no significant change from prior exam(s). residential monitor in the left medial breast. BREAST DENSITY: [...] has been no significantchange from prior exam(s). residential monitor in the left medialbreast. BREAST DENSITY: B - There are scattered areas of fibroglandular density. IMPRESSION: No evidence of breast malignancy. BI-RADS CATEGORY: 1 - NEGATIVE RECOMMENDATION: Screening bilateral mammogram is recommended in 1 year. Mammo Location: [facility], [address], [place], [address], . -------- FINAL REPORT -------- Dictated By: Demetra Meadows Dictated Date: 01/12/2025 15:21 ET Assigned Physician: Demetra Meadows Reviewed and Electronically Signed By: Demetra Meadows Signed Date: 01/12/2025 15:26 ET Workstation ID: [id number] Transcribed By: Self Edit Transcribed Date: 01/12/2025 15:21 ET us Self Referral Sppl IMG BI PROCEDURES Final Resul t from Last 3 Months Insurance [employer] MEDICARE Care Teams Form Grader Operator Relationship Specialty Start Date End Date Louis Quijano PA PCP - General Physician Crop Or Livestock Tenant Farmer 01/12/25
--- OUTSIDE RECORDS SUMMARY | 2025-04-03 08:07 | XMS_ITS | Patient Health Record ---
Author Organization [facility] Address [address] [place] [address] Care Team Providers Care Silk Screen Operator Name Role Phone Nataliia Hinojosa MD Primary Care Provider Kamalaa Cindy Gama Unavailable [phone] Allergies Allergen (clinical drug ingredient) Drug/Non Drug Allergy documented on EMR Reaction Allergy Type Onset Date Status Percodan itching Drug Allergy Active Penicillin Unknown Drug Allergy Active codeine Codeine constipation Drug Allergy Acti ve Reason For Referral No Information Medications Medication SIG (Take, Route, Frequency, Duration) Notes Start Date End Date Status Celecoxib 200 MG 1 capsule with food Orally Once a day; Duration: 30 day(s) Active Flecainide Acetate 50 MG Orally Active Caltrate 600+D3 Acti ve CeleBREX 100 MG 1 capsule with food Orally Once a day Not-Taking Cyanocobalamin 2x per month Ac tive Vitamin D 1000 UNIT 1 tablet Orally Once a day Not-Taking Eylea 1x per month Active Cephalexin 500 MG 1 tablet Orally Twice a day; Duration: 10 day(s) Not-Taking Prolia 60 MG/ML as [...] 10 MG 1 tablet Orally Once a day; Duration: 30 day(s) Active Social History Tobacco Use: [...] Treatment Pending Test Test Name Order Date 50375- Debride <25 sq cm 12/10/2017 42557 I&D ABSCESS- SIMPLE,SINGLE 018 Insurance Providers Payer Name Payer Address Payer Phone Subscriber Number Group Number Insured Name Patient Relationship to Insured Coverage Start Date Coverage End Date [employer] Medicare [id number] [address] [address] [place] [address] [id number] Clinton Hoyt Self - patient is the [...]
--- OUTSIDE RECORDS SUMMARY | 2025-04-03 08:07 | XMS_ITS | Data Portability ---
Author Organization [place] - [employer], [employer], [facility] Address [address] [place] [address] Care Team Providers Care [employer] Teacher Name Role Phone GLADYS KAISER Primary Care Provider GLADYS KAISER Referring Provider [phone] Assessment No assessment recorded. Plan of Treatment Reminders Order Date Submit Date Provider Last Modified By Organization Details Last Modified Time Details Appointments None recorded. Lab None recorded. Referral ophthalmolo gist referral 2022 023 [id number], [address] [place] [place], [address], 3 11:31:29 Procedures None recorded. Surgeries None recorded. Imaging unlisted imaging order - US soft tissue 2023 024 [email or web address] [facility], [email or web address], All Locations, [place], [address], 4 06:52:33 CT, coronary calcium score 2022 023 STEFAN [facility], [facility], All Locations, [place], [address], 3 09:03:16 Medication Orders amoxicillin 875 mg-potassiu m clavulanate 125 mg tablet 2024 025 STEFAN [id number], [address] [place], [address], 5 10:24:37 Medrol (Samuel) 4 mg tablets in a dose pack 2024 025 STEFAN [id number], [address] [place], [address], 5 09:50:05 cefdinir 300 mg capsule 2024 025 STEFAN [id number], [address] [facility], [place], [address], 5 09:50:01 Prolia 60 mg/mL subcutaneou s syringe 2022 023 [email or web address] [facility], [address] [place] [address], [address], 13:29:24 Patient TargetsNo targets recorded. Patient Instructions Encounter Date Encounter Id Patient Instructions Last Modified By Organization Details Last Modified Time 10/01/2022 [id number] gastroesophageal reflux disease (GERD): care instructions Not available 10/01/2022 10:49:30 high cholesterol : care instructions Not available 10/01/2022 10:56:23 11/13/2024 [id number] Acute Sinusitis: Care Instructions [email or web address] Not available 11/13/2024 10:24:35 start on the abo ve medication as directed , if symptoms persist please either follow up with PCP or here back at the walking for re evaluation of symptoms , if symptoms worsen please go to the ER for further evaluation and treatment. Patient understands instructions and will seek medical attention if symptoms worsen as directed. [email or web address] Not available 11/13/2024 10:24:09 Reason for Referral Pediatric Speech Language Pathologist Referral for Age related macular degeneration Referring Physician: Gladys Kaiser, Family Medicine, Encounter Date: 10/01/2022 Results Created Date Observation Date Name Description Value Unit Range Abnormal Flag Note LastModifiedBy Organization Detail LastModifiedTime 12/03/1912/03/2023 CBC W/ AUTOD IFF, COMPL ETE BLOOD COUNT WBC 10.0 K/uL 3.6 - 10.0 Not Available [facility], [place], [address], 12/03/2023 15:28:03 12/03/19 24 12/03/2023 CBC W/ AUTOD IFF, COMPL ETE BLOOD COUNT RBC 4.3 M/uL 3.9 - 5.0 Not Available [facility], [place], [address], 12/03/2023 15:28:03 12/03/19 24 12/03/2023 CBC W/ AUTOD IFF, COMPL ETE BLOOD COUNT hemoglobin 12.0 g/dL 12.0 - 15.0 Not Available [facility] [address] [place], [place] [address]y [address], [place], [address], 12/03/2023 15:28:03 12/03/19 24 12/03/2023 CBC W/ AUTOD IFF, COMPL ETE BLOOD COUNT hematocrit 36.7 % 35.0 - 45.0 Not Available [facility], [place], [address], 12/03/2023 15:28:03 12/03/19 24 12/03/2023 CBC W/ AUTOD IFF, COMPL ETE BLOOD COUNT MCV 85.0 fL 80.0 - 99.0 Not Available [facility] [address] [place] [address] [address], [place], [address], 12/03/2023 15:28:03 12/03/19 24 12/03/2023 CBC W/ AUTOD IFF, COMPL ETE BLOOD COUNT MCH 27.8 pg 27.0 - 33.0 Not Available [facility], [place], [address], 12/03/2023 15:28:03 12/03/19 24 12/03/2023 CBC W/ AUTOD IFF, COMPL ETE BLOOD COUNT MCHC 32.7 g/dL 32.0 - 37.5 Not Available [facility] [address], [place], [address], 12/03/2023 15:28:03 12/03/19 24 12/03/2023 CBC W/ AUTOD IFF, COMPL ETE BLOOD COUNT RDW 15.3 % 11.0 - 15.0 high Not Available [facility] [address], [place], [address], 12/03/2023 15:28:03 12/03/19 24 12/03/2023 CBC W/ AUTOD IFF, COMPL ETE BLOOD COUNT nucleated RBC 0 % 0 - 2 Not Available [facility] [address], [place], [address], 12/03/2023 15:28:03 12/03/19 24 12/03/2023 CBC W/ AUTOD IFF, COMPL ETE BLOOD COUNT platelet 335 K/uL 140 - 440 Not Available [facility] [address], [place], [address], 12/03/2023 15:28:03 12/03/19 24 12/03/2023 CBC W/ AUTOD IFF, COMPL ETE BLOOD COUNT MPV 7.7 fL 7.4 - 10.4 Not Available [facility] [address], [place], [address], 12/03/2023 15:28:03 12/03/19 24 12/03/2023 CBC W/ AUTOD IFF, COMPL ETE BLOOD COUNT neutrophil, percentage 64.1 % Not Available [facility] [address], [place], [address], 12/03/2023 15:28:03 12/03/19 24 12/03/2023 CBC W/ AUTOD IFF, COMPL ETE BLOOD COUNT lymphocyte, percentage 26.4 % Not Available [facility] [address] [place], [place] [address], [place], [address], 12/03/2023 15:28:03 12/03/19 24 12/03/2023 CBC W/ AUTOD IFF, COMPL ETE BLOOD COUNT monocyte, percentage 4.8 % Not Available [facility] [address] [place], [place] [address]y [address], [place], [address], 12/03/2023 15:28:03 12/03/19 24 12/03/2023 CBC W/ AUTOD IFF, COMPL ETE BLOOD COUNT eosinophil, percentage 3.8 % Not Available [facility] [address] [place], [place] [address], [place], [address], 12/03/2023 15:28:03 12/03/19 24 12/03/2023 CBC W/ AUTOD IFF, COMPL ETE BLOOD COUNT basophil, percentage 0.9 % Not Available [facility] [address] [place], [place] [address], [place], [address], 12/03/2023 15:28:03 12/03/19 24 12/03/2023 CBC W/ AUTOD IFF, COMPL ETE BLOOD COUNT neutrophil, absolute 6.4 K/uL 1.5 - 7.5 Not Available [facility] [address] [place], [place] [address], [place], [address], 12/03/2023 15:28:03 12/03/19 24 12/03/2023 CBC W/ AUTOD IFF, COMPL ETE BLOOD COUNT lymphocyte, absolute 2.6 K/uL 0.8 - 4.0 Not Available [facility] [address] [place], [place] [address], [place], [address], 12/03/2023 15:28:03 12/03/19 24 12/03/2023 CBC W/ AUTOD IFF, COMPL ETE BLOOD COUNT monocyte, absolute 0.5 K/uL 0.1 - 1.0 Not Available [facility] [address], [place], [address], 12/03/2023 15:28:03 12/03/19 24 12/03/2023 CBC W/ AUTOD IFF, COMPL ETE BLOOD COUNT eosinophil, absolute 0.4 K/uL 0.1 - 1.0 Not Available [facility] [address] [facility] [address], [place], [address], 12/03/2023 15:28:03 12/03/19 24 12/03/2023 CBC W/ AUTOD IFF, COMPL ETE BLOOD COUNT basophil, absolute 0.1 K/uL 0.0 - 0.2 Not Available [facility] [address] [facility] [address], [place], [address], 12/03/2023 15:28:03 12/03/19 24 12/03/2023 TSH, THYRO ID STIMU LATIN G HORMO NE TSH 2.1400 uIU/m L 0.2700 - 4.2000 Not Available [facility] [address] [facility] [address] [place], [address], 12/03/2023 15:54:33 12/03/19 24 12/03/2023 VITAM IN B12 & FOLAT E vitamin B-12 820 pg/mL 232 - 1245 Not Available [facility] [address] [facility] [address], [place], [address], 12/03/2023 17:20:01 12/03/19 24 12/03/2023 VITAM IN B12 & FOLAT E folate 9.59 NG/mL >3.10 A serum Folat e ruben ntrat ion of < 3.1 ng/ml is consi dered to repre sent clini matt defic iency . Not Available [facility] [address], [place], [address], 12/03/2023 17:20:01 12/03/19 24 12/03/2023 CMP, COMPR EHENS CANDICE METAB OLIC PANEL glucose 84 mg/dL 70 - 100 Not Available [facility] [address] [facility] [address], [place], [address], 12/03/2023 17:36:07 12/03/19 24 12/03/2023 CMP, COMPR EHENS CANDICE METAB OLIC PANEL BUN 24 mg/dL 7 - 25 Not Available [facility] [address] [facility] [address], [place], [address], 12/03/2023 17:36:07 12/03/19 24 12/03/2023 CMP, COMPR EHENS CANDICE METAB OLIC PANEL creatinine 0.6 mg/dL 0.6 - 1.3 Not Available [facility] [address] [facility] [address], [place], [address], 12/03/2023 17:36:07 12/03/19 24 12/03/2023 CMP, COMPR EHENS CANDICE METAB OLIC PANEL BUN/creatini ne ratio 39 calc 10 - 25 high Not Available [facility] [address] [facility] [address], [place], [address], 12/03/2023 17:36:07 12/03/19 24 12/03/2023 CMP, COMPR [...] ator. Not Available [facility] [address] [facility] [address], [place], [address], 12/03/2023 17:36:07 12/03/19 24 12/03/2023 CMP, COMPR EHENS CANDICE METAB OLIC PANEL sodium 143 mmol/ L 135 - 145 Not Available [facility] [address] [facility] [address], [place], [address], 12/03/2023 17:36:07 12/03/19 24 12/03/2023 CMP, COMPR EHENS CANDICE METAB OLIC PANEL potassium 4.6 mmol/ L 3.5 - 5.5 Not Available [facility] [address] [facility] [address], [place], [address], 12/03/2023 17:36:07 12/03/19 24 12/03/2023 CMP, COMPR EHENS CANDICE METAB OLIC PANEL chloride 105 mmol/ L 100 - 115 Not Available [facility] [address] [facility] [address], [place], [address], 12/03/2023 17:36:07 12/03/19 24 12/03/2023 CMP, COMPR EHENS CANDICE METAB OLIC PANEL CO2 29 mmol/ L 21 - 33 Not Available [facility] [address], [place], [address], 12/03/2023 17:36:07 12/03/19 24 12/03/2023 CMP, COMPR EHENS CANDICE METAB OLIC PANEL calcium 8.7 mg/dL 8.8 - 10.6 low Not Available [facility] [address] [facility] [address], [place], [address], 12/03/2023 17:36:07 12/03/19 24 12/03/2023 CMP, COMPR EHENS CANDICE METAB OLIC PANEL total protein 6.4 g/dL 6.2 - 8.6 Not Available [facility] [address] [place], [place] [address]y [address], [place], [address], 12/03/2023 17:36:07 12/03/19 24 12/03/2023 CMP, COMPR EHENS CANDICE METAB OLIC PANEL globulin 2.4 g/dL 1.3 - 4.0 Not Available [facility] [address] [place], [place] [address]y [address], [place], [address], 12/03/2023 17:36:07 12/03/19 24 12/03/2023 CMP, COMPR EHENS CANDICE METAB OLIC PANEL albumin 4.0 g/dL 3.5 - 5.7 Not Available [facility] [address] [place], [place] [address]y [address], [place], [address], 12/03/2023 17:36:07 12/03/19 24 12/03/2023 CMP, COMPR EHENS CANDICE METAB OLIC PANEL A/G ratio 1.6 calc 1.0 - 2.8 Not Available [facility] [address] [place] [address] [address], [place], [address], 12/03/2023 17:36:07 12/03/19 24 12/03/2023 CMP, COMPR EHENS CANDICE METAB OLIC PANEL AST (SGOT) 14 U/L 13 - 39 Not Available [facility] [address] [place] [address] [address], [place], [address], 12/03/2023 17:36:07 12/03/19 24 12/03/2023 CMP, COMPR EHENS CANDICE METAB OLIC PANEL ALT (SGPT) 15 U/L 7 - 52 Not Available [facility] [address] [place], [place] [address]y [address], [place], [address], 12/03/2023 17:36:07 12/03/19 24 12/03/2023 CMP, COMPR EHENS CANDICE METAB OLIC PANEL alkaline phosphatase 62 U/L 20 - 128 Not Available [facility] [address] [facility] [address] [place], [address], 12/03/2023 17:36:07 12/03/19 24 12/03/2023 CMP, COMPR EHENS CANDICE METAB OLIC PANEL total bilirubin 0.5 mg/dL 0.3 - 1.0 Not Available [facility] [address] [facility] [address] [place], [address], 12/03/2023 17:36:07 12/03/19 24 12/03/2023 LIPID PANEL W/ CALCU LATED LDL HDL cholestrol 77 mg/dL 23 - 92 Not Available [facility] [address] [facility] [address] [place], [address], 12/03/2023 17:36:09 12/03/19 24 12/03/2023 LIPID PANEL W/ CALCU LATED LDL cholesterol 218 mg/dL <200 high Expec ene resul ts for Adult s: Total Mihaela stero l: Risk class ifica tion < 200 mg/dL Lynnette able 200-2 39 mg/dL Borde rline high >240 mg/dL High Not Available [facility] [address] [facility] [address] [place], [address], 12/03/2023 17:36:09 12/03/19 24 12/03/2023 LIPID PANEL W/ CALCU LATED LDL triglyceride 95 mg/dL 30 - 150 Not Available [facility] [address] [facility] [address] [place], [address], 12/03/2023 17:36:09 12/03/19 24 12/03/2023 LIPID PANEL W/ CALCU LATED LDL non-HDL cholesterol 141 mg/dL <130 high Lynnette able < 130 mg/dL Not Available [facility] [address] [facility] [address] [place], [address], 12/03/2023 17:36:09 12/03/19 24 12/03/2023 LIPID PANEL W/ CALCU LATED LDL chol/HDL risk ratio 3 calc < 5.0 Optim al Not Available [facility] [address], [place], [address], 12/03/2023 17:36:09 12/03/19 24 12/03/2023 LIPID PANEL W/ CALCU LATED LDL LDL calculated 122 mg/dL 0 - 99 high Not Available [facility] [address], [place], [address], 12/03/2023 17:36:09 12/03/19 24 12/03/2023 VENIP UNCTU RE results Compl ete Not Available [facility] [address], [place], [address], 12/03/2023 08:46:38 10/14/19 23 10/13/2022 CT, coron [...] Caden Mike Michae l Sign Date: [id number] [facility] All Locations, [place], [address], 08/05/2024 19:41:24 12/03/1912/02/2023 US, lower extre mity, [...] Renetta mascorro D.O., Paul Sign Date: [email or web address] [facility] All Locations, [place], [address], 09/28/2024 14:10:51 Result Notes Documentation Provider Name [...] Mike Michael Sign Date: 14-OCT-22 Not Available [facility] 08/05/2024 20:05:33 Problems Name Problem SNOMED Code Status Onset Date Resolution Date Notes Provider Name and Address Organization Details Recorded Time Senile osteoporosis 36456432 Active 2022 GLADYS KAISER, DO [address], [place], [address], [facility] Phys[facility] [place], [facility] 3 23:39:07 Hyperlipidemia 60637440 Active 2022 GLADYS KAISER, DO [address], [place], [address], [facility] Physician [facility] [place], [facility] 3 23:39:09 Cobalamin deficiency 345963608 Active 2022 GLADYS KAISER, DO [address], [place], [address], [facility] Physician [facility] [place], [facility] 3 23:39:10 Osteoporosis 97227808 Active 2022 GLADYS KAISER, DO [address], [place], [address], [facility] [place], [facility] 3 23:39:12 Age related macular degeneration 357211605 Active 2022 GLADYS KAISER, DO [address], [place], [address], [facility] [place], [facility] 3 23:39:13 Gastroesophage al reflux disease 626288508 Active 2022 GLADYS KAISER, DO [address], [place], [address], [facility] Physician [facility] [place], [facility] 3 23:39:15 Allergic rhinitis 35150648 Active 2022 GLADYS KAISER, DO [address], [place], [address], [facility] Physician [facility] [place], [facility] 3 23:39:16 Paroxysmal atrial fibrillation 281071720 Active 2022 GLADYS KAISER, DO [address], [place], [address], [facility] Physician [facility] [place], [facility] 3 23:39:18 Supraventricul ar tachycardia 8714303 Active 2022 GLADYS KAISER, DO [address], [place], [address], [facility] Physician [facility] [place], [facility] 23:39:18 Problem Notes None recorded. Procedures Surgical History Date Name Laterality Status Provider Name and Address Organization Details Recorded Time 11/20/19 24 Cardiac Catherization completed Elizabeth [facility], [facility] 12/01/2023 14:22:58 10/01/19 23 Prolia completed Dong Frey [facility], [facility] 10/01/2022 11:22:58 09/12/20 22 Colonoscopy completed GLADYS KAISER DO [address], [place], [address], [facility] Physician [facility] [place], [facility] 10/01/2022 10:48:52 12/31/19 22 Date of Last Mammogram completed Rosa Matson [facility] Physician [facility] [place], [facility] 10/01/2022 09:56:00 12/31/19 22 Mammogram Screening completed GLADYS KAISER DO [address], [place], [address], [facility] Physician [facility] [place], [facility] 10/01/2022 10:48:08 subtotal thyroidectomy completed GLADYS KAISER DO [address], [place], [address], [facility], [facility] 10/01/2022 10:54:14 Cholecystectomy completed Elizabeth Ha [facility], [facility] 12/01/2023 14:20:37 Colonoscopy completed Elizabeth SAMUEL - [facility], [facility] 12/01/2023 14:20:37 Hysterectomy completed Elizabeth SAMUEL - M [facility], [facility] 12/01/2023 14:20:38 Other completed Elizabeth Ha [facility], [facility] 12/01/2023 14:20:38 Thyroidectomy completed Elizabeth Ha [facility], [facility] 12/01/2023 14:20:38 Sinus Surgery completed Elizabeth [facility], [facility] 12/01/2023 14:20:38 Mammogram Screening completed Elizabeth Ha [facility] Physician [facility] [place], [facility] 12/01/2023 14:20:38 fixation of tendon of foot and/or ankle completed GLADYS KAISER DO [address], [place], [address], [facility] Physician [facility] [place], [facility] 12/01/2023 14:41:48 Imaging Results None recorded. Procedure Notes None recorded. Medical Equipment None Reported. Allergies Allergen ID Allergen Name Allergen Category Reaction Reaction Severity Criticality Documentation Date Start Date Code Code System Note Provider Name and Address Organization Details Recorded Time 0356553 egg extract food,medi cation edema Not available Not available 10/01/2022 88345 15 RxNorm GLADYS KAISER DO [address], [place], [address], [facility], [facility] 10:34:23 Medications Name Sig Start Date Stop [...] 137 mcg-flutica sone 50 mcg/spray nasal spray Castell 1 spray twice a day by intranasa [...] Updated DateTime 5 154.94 cm 33.6 kg/m2 39054.4 4 g 97.4 [degF] 98 % 98 % 66 /min 118/80 mm[Hg] Nolvia Mejia [facility], [facility] 5 13:17:46 Date Recorded Body weight Body mass index (BMI) Body height Oxygen saturation Oxygen saturation in Arterial blood by Pulse oximetry Respiratory rate Heart rate Body temperature Systolic And Diastolic Provider Name and Address Organization Details Last Updated DateTime 3 44126.8 4 g 32.7 kg/m2 154.94 cm 99 % 99 % 18 /min 60 /min 98.2 [degF] 108/70 mm[Hg] Rosa [place] [facility], [facility] 3 10:04:14 Date Recorded Body height Respiratory rate Body mass index (BMI) Body weight Oxygen saturation Oxygen saturation in Arterial blood by Pulse oximetry Heart rate Body temperature Systolic And Diastolic Provider Name and Address Organization Details Last Updated DateTime 5 154.94 cm 18 /min 33.6 kg/m2 95752.4 4 g 97 % 97 % 76 /min 98.4 [degF] 126/78 mm[Hg] Neisha Lutz [facility], [facility] 5 09:52:48 Date Recorded Body height Body mass index (BMI) Body weight Heart rate Oxygen saturation Oxygen saturation in Arterial blood by Pulse oximetry Body temperature Systolic And Diastolic Provider Name and Address Organization Details Last Updated DateTime 4 154.94 cm 33.9 kg/m2 02099.8 3 g 68 /min 96 % 96 % 97.3 [degF] 136/82 mm[Hg] Elizabeth Ha [facility] 4 14:13:50 Social History Question Answer Notes LastModified by [employer] Details LastModified Time Tobacco Smoking Status Former Smoker Rosa bell [facility] 10/01/2022 09:56:11 Do You Have An [...] Functional Status Question Answer Note LastModified by [employer] Details LastModified Time What is your level [...] SNOMED-CT Code Diagnosis ICD10 Code Diagnosis Note [id number] GLADYS KAISER, DO [facility] [address] [place] [address] 10/01/2022 09:46:51 10/01/2022 10:59:19 Supraventricular tachycardia 1712982 I47.1 Chronic. Patient states on previous loop recorder is noted to have SVT along with her A. fib which is paroxysmal . Paroxysmal atrial fibrillation 908912395 I48.0 Chronic. Stable with medication s. Following with cardiology . Osteoarthritis 316792916 M19.90 Chronic. Stable w/ meds. Allergic rhinitis 234942 04 J30.9 Chronic stable with medication s. Does seem to be seasonal and duration. Gastroesop hageal reflux disease 706206053 K21.9 Chronic. Stable with medication s. Due to lifelong issues with Celebrex I recommend staying on H2 kendal or PPI. Age relate d macular degeneration 941991986 H35.30 Chronic. Stable with injections . Patient does need to get establishe d here for evaluation s with renal doctor. Osteoporosis 28421290 M8 1.0 . Stable with Prolia injections for numerous years offered refill today patient will look at rescheduli ng and follow-up. Cobalamin deficiency 190 153824 E53.8 Chronic. Stable with oral replacemen t. Hyperlipidemia 27282215 E78.5 Chronic problem, unstable - not at [...] 1804 0001 M81.0 Chronic. Stable. Will CTM. [id number] GLADYS KAISER DO [facility] [address] [place] [address] 12/01/2023 14:06:45 12/01/2023 15:48:13 Traumatic hematoma 706279020 T14.8XXD Acute traumatic hematoma due to cardiac catheteriz ation. No signs of infection at this point we will get a ultrasound to follow-up on this and patient under ER precaution s as well as return precaution s discussed. [id number] GLADYS KAISER DO [facility] [address] [place] [address] 09/28/2024 13:08:55 09/28/2024 14:19:43 Dysfunction of left eustachian tube [id number] 911700 H69.92 Acute. PT does have a eustachian tube disorder and nasal congestion . Will start meds and f/u. [id number] Nehemias Bocanegra APRN [facility] [address] [facility] [place] [address] 11/13/2024 09:43:35 11/13/2024 12:47:26 Cough 33799913 R05.9 Rhinitis 19088643 J00 Environmental allergy 42 5985918 T78.49XA Acute sinusitis 82654832 J01.90 positive recurrent sinus infection. start on [...] Conde Member ID Guarantor Name 11/13/2024 1 [facility] (MEDICARE REPLACEMENT/A DVANTAGE - PPO) [id number] Clinton Thomas [id number] Clinton Thomas 10/14/2022 1 *SELF PAY* , Hitesh tSratton Notes Date Note Type Note Provider Name [...] diagnosed as having osteoporosis Yes Imported from [employer] on 10/01/2022 GLADYS KAISER DO [address], [place], [address], [employer] [place] [employer] 10/05/2022 23:39:32 12/01/2023 text/html QUALITY MEASURE QUESTIONNAIRE Has the Patient had a fracture in the last year No Imported from [employer] on 12/01/2023 The patient is here today [...] in for further evaluation. GLADYS KAISER DO [address], [employer], [address], [employer], [employer] 12/02/2023 09:51:56 09/28/2024 text/html Ear ComplaintRep orted bypatient.Reason for visit:acute complaint Location:left ear Quality:pain; hearing loss Severity:unchanged Duration:constant Onset/Timing:abrupt;4 days ago Context:recent exposure to ill contacts;recent air travel Alleviating factors:nothing; sneezing Aggravating factors:nothing Associated Symptoms:head congestion; no fever; no swollen lymph nodes; no exudates; no jaw pain GLADYS KAISER DO [address], [employer], [address], [employer], [employer] 09/28/2024 14:11:41 11/13/2024 text/html 69 y o f present s states that she was treated for sinus infection still has ear pain sinus pressure mild cough denies fever Nehemias Bocanegra, CLARIFIER OPERATOR [address], [place], [address], [facility], [facility] 11/13/2024 10:24:38 OBGyn Episode No OBEpisode recorded.
== END 2025-04-03 07:57 | disposition home or self-care (01) ==
LOC: HO.MRI 07:56
PROVIDERS: PCP Physician Assistant; Visit Provider Physician Assistant
DX: M54.12 Radiculopathy, cervical region (principal)
CPT/HCPCS: 72141

== ENCOUNTER 2025-04-17 09:45 | Outpatient (AMB) | payer MEDICARE, SELFPAY ==
--- NOTE | 2025-04-17 09:16 | A.SPINEOV_ITS ---
Intake Visit Reasons: Discuss MRI Results Intake Note: Ms. Thomas is here today to discuss the results of her MRI. Forging Press Lever Tender Required: No Allergies oxycodone (From Percocet) Allergy (Mild, Verified 03/21/25 13:04) NAUSEA,HIVES,THROWING UP/ codeine (Codeine) Adverse Reaction (Mild, Verified 03/21/25 13:04) Constipation dairy protein Allergy (Severe, Uncoded 02/13/25 09:34) Diarrhea dairy,eggs, wheat,nuts,mold Allergy (Severe, Uncoded 02/13/25 09:34) Diarrhea Assessment & Plan Assessment & Plan (1) Degenerative disc disease, lumbar: Code(s): M51.369 - Other intervertebral disc degeneration, lumbar region without mention of lumbar back pain or lower extremity pain Category: Medical Plan HPI: Clinton is a pleasant 70-year-old female previously evaluated in clinic by this bond writer for both lumbar spine and cervical spine/neck concerns. To recap after her last visit I recommended that she attempt to address her low back pain with medication therapy/injections as she had not attempted this prior to referral to our office. She is booked to undergo left L5-S1 TFESI on 05/09/25. In terms of her cervical spine complaints, I ordered a cervical MRI to rule out a severe cord compression given her disclosure of symptoms that are suspicious for cervical myelopathy. The patient comes in today to review her cervical MRI. Imaging: MRI of the cervical spine completed April 03 here at [facility] shows diffuse spondylosis of the cervical spine. There is notable grade 1 listhesis of C3-4, C4-5. There is notable degenerative changes between the disc space at C5-6. Given this, it appears on MRI imaging that there is mild- moderate central canal stenosis at C5-6, C6-7 and varying levels of low grade foraminal stenosis, most notable at C5-6. No evidence of cord signal change or myelopathy. Plan: In the absence of significant spinal cord compression on cervical MRI imaging, I believe it is reasonable to turn our attention back to her lumbar spine concerns. I would like to see how she fares with the proposed injection on 05/09 and / or medication regimens they suggest and may re-evaluate her in regards to her low back pain after conservative measures are attempted. I would also like to obtain the patient's EMG records from [facility]. James Wick MD,PhD [facility] Coding Level of Care Code Est Pt Level 2 (34371) Diagnoses Degenerative disc disease, lumbar M51.369
--- OUTSIDE RECORDS SUMMARY | 2025-04-17 10:20 | XMS_ITS | Encounter Summary ---
Author Organization [facility] Address [address] [place] [address] Phone Care Team Providers Care Insulator Cutter And Former Name Role Phone Rd Lowery MD Primary Care Provider [phone]- [phone] Encounter Details Date Type Department Care Team (Late st Contact Info) Description 01/26/2020 Ancillary Orders [facility],Outside Imaging [address] [place] [address] System, Provider Not In, [place] [address] Social History Tobacco Use Types Packs/Day Years [...] on filedocumented in this encounter Care Teams Insulator Cutter And Former Relationship Specialty Start Date End Date Rd Lowery MD [email or web address] PCP - General Internal Medicine 04/16/18 documented as of this encounter Additional Source Comments The information contained in this document represents components of the legal health record. It is not the complete legal health record.[facility]
--- OUTSIDE RECORDS SUMMARY | 2025-04-17 10:20 | XMS_ITS | Clinical Summary ---
Author Organization [facility] Address [address] [place] [address] Phone Care Team Providers Care Nicking Machine Operator Name Role Phone Louis Quijano Primary Care Provider Encounters Date Type Department Care Team Description 02/02/2025 8:08 AM EDT - 02/02/2025 11:59 PM EDT Hospital Encounter [facility] [address] [place] [phone] Age-related osteoporosis without current pathological fracture Discharge Disposition: Home or Self Care 02/02/2025 7:51 AM EDT - 02/02/2025 11:59 PM EDT Hospital Encounter [facility] [address] [place] [phone] Age-related osteoporosis without current pathological fracture Discharge Disposition: Home or Self Care from [...] for breast cancer from Last 3 Months or Most Recently Relevant to Health Maintenance Results * BD Bone Density DXA Appendicular Skeleton (02/02/2025 8:39 AM EDT) Anatomical Region Laterality Modality Body Bone Densitometr y 02/03/2025 7:47 AM EDT Impressions 02/03/2025 7:49 AM EDT Impression: Osteoporosis. There has been a decrease of 8.9% in bone mineral density since the prior examination of 01/07/2023. Code 95406 -------- FINAL REPORT -------- Dictated By: Bam Sanchez Dictated Date: 02/03/2025 07:47 ET Assigned Physician: Bam Sanchez Reviewed and Electronically Signed By: Bam Sanchez Signed Date: 02/03/2025 07:49 ET Workstation ID: [id number] Transcribed By: Self Edit Transcribed Date: 02/03/2025 [...] since the prior examination of 01/07/2023. Code 89951 -------- FINAL REPORT -------- Dictated By: Bam Sanchez Dictated Date: 02/03/2025 07:47 ET Assigned Physician: Bam Sanchez Reviewed and Electronically Signed By: Bam Sanchez Signed Date: 02/03/2025 07:49 ET Workstation ID: [id number] Transcribed By: Self Edit Transcribed Date: 02/03/2025 07:47 ET Kriss Stokes MD IM DXA PROCEDURES Final [...] probability of hip fracture of 3.6%. Code 04752 -------- FINAL REPORT -------- Dictated By: Bam Sanchez Dictated Date: 02/03/2025 07:50 ET Assigned Physician: Bam Sanchez Reviewed and Electronically Signed By: Bam Sanchez Signed Date: 02/03/2025 07:51 ET Workstation ID: [id number] Transcribed By: Self Edit Transcribed Date: 02/03/2025 [...] density of the femurs bilaterally is 0.806 gm/pl6zwofi is 80% of that of young normals [...] probability of hip fracture of 3.6%. Code 89666 -------- FINAL REPORT -------- Dictated By: Bam Sanchez Dictated Date: 02/03/2025 07:50 ET Assigned Physician: Bam Sanchez Reviewed and Electronically Signed By: Bam Sanchez Signed Date: 02/03/2025 07:51 ET Workstation ID: [id number] Transcribed By: Self Edit Transcribed Date: 02/03/2025 [...] year. Mammo Location: [facility], [address] [place] [address], [address], . -------- FINAL REPORT -------- Dictated By: Demetra Meadows Dictated Date: 01/12/2025 15:21 ET Assigned Physician: Demetra Meadows Reviewed and Electronically Signed By: Demetra Meadows Signed Date: 01/12/2025 15:26 ET Workstation ID: [id number] Transcribed By: Self Edit Transcribed Date: 01/12/2025 [...] been no significant change from prior exam(s). athletic monitor in the left medial breast. BREAST [...] has been no significantchange from prior exam(s). athletic monitor in the left medialbreast. BREAST DENSITY: B - There are scattered areas of fibroglandular density. IMPRESSION: No evidence of breast malignancy. BI-RADS CATEGORY: 1 - NEGATIVE RECOMMENDATION: Screening bilateral mammogram is recommended in 1 year. Mammo Location: [facility], [address] [place] [address], [address], . -------- FINAL REPORT -------- Dictated By: Demetra Meadows Dictated Date: 01/12/2025 15:21 ET Assigned Physician: Demetra Meadows Reviewed and Electronically Signed By: Demetra Meadows Signed Date: 01/12/2025 15:26 ET Workstation ID: [id number] Transcribed By: Self Edit Transcribed Date: 01/12/2025 15:21 ET us Self Referral Sppl IMG BI PROCEDURES Final Resul t from Last 3 Months or Most Recently Relevant to Health Maintenance Insurance [employer] MEDICARE Care Teams Nicking Machine Operator Relationship Specialty Start Date End Date Louis Quijano PA PCP - General Physician Asphalt Paver Operator 01/12/25
--- OUTSIDE RECORDS SUMMARY | 2025-04-17 10:20 | XMS_ITS | Patient Health Record ---
Author Organization [facility] Address [address] [place] [address] Care Team Providers Care Inserter Promotional Item Name Role Phone Nataliia Hinojosa MD Primary Care Provider Kamalaa Cindy Gama Unavailable [phone] Allergies Allergen (clinical drug ingredient) Drug/Non Drug [...] Treatment Pending Test Test Name Order Date 02914- Debride <25 sq cm 12/10/2017 32830 I&D ABSCESS- SIMPLE,SINGLE 018 Insurance Providers Payer Name Payer Address Payer Phone Subscriber Number Group Number Insured Name Patient Relationship to Insured Coverage Start Date Coverage End Date [employer] Medicare [id number] [address] [address] [place] [address] [id number] Clinton Hoyt Self - patient is the [...]
--- OUTSIDE RECORDS SUMMARY | 2025-04-17 10:20 | XMS_ITS | Patient Health Record ---
Author Organization [facility] Address [address] [place] [address] Care Team Providers Care Mall Manager Name Role Phone Nataliia Hinojosa MD Primary Care Provider Javier Velázquez Unavailable [phone] Allergies Allergen (clinical drug ingredient) Drug/Non Drug [...] Problem Status W/U Status Risk Notes Problem 381949910 Colon cancer screening (Z12.11) Active confirmed Problem Diverticular disease of colon (934340115) Diverticulosis of large intestine without perforation or abscess without bleeding (K57.30) Active confirmed Problem 628568210 Gastroesophageal reflux disease with esophagitis (K21.0) Active confirmed Problem 326610456 Gastroesophageal reflux disease without esophagitis (K21.9) Active confirmed Problem 692004669701713 Preprocedural examination (Z01.818) Active confirmed Problem 00387774 Hiatal hernia (K44.9) Active confirmed Problem 97173818 Irritable bowel syndrome, unspecified type (K58.9) Active confirmed Plan Of Treatment Future Test Test Name Order Date UPPER GI ENDOSCOPY 06/10/2011 COLONOSCOPY 06/10/2011 UPPER GI ENDOSCOPY 08/05/2019 COLONOSCOPY 09/09/2022 Insurance Providers Payer Name Payer Address Payer Phone Subscriber Number Group Number Insured Name Patient Relationship to Insured Coverage Start Date Coverage End Date [facility] [address] [place] [id number] NHUNG Garibay STEFANIE Self - patient is [...] 2006 Hyperlipidemia Denies [place],DM,CVA,Lung disease,renal dise ase A.fib--web graphic designer-Dr. Green Osteoarthritis Asthma Colonoscopy November 2011 with [...] [place] [facility] [place]ign breast biopsies Thyroid surgery precancerous --right lo be removed Midfoot fusion surgery-right --05/2022--wearing a boot on the foot as of the 08/2022 OV
== END 2025-04-17 10:14 | disposition home or self-care (01) ==
LOC: HO.HNS 09:46
PROVIDERS: PCP Physician Assistant; Visit Provider Physician Assistant
DX: M51.369 Other intervertebral disc degeneration, lumbar region without mention of lumbar back pain or lower extremity pain (principal)
CPT/HCPCS: 99212

== ENCOUNTER → 2025-04-17 09:45 | Outpatient (BNVA) | payer MEDICARE, SELFPAY | PROVIDERS: PCP Physician Assistant; Visit Provider Physician Assistant | DX: M51.369 Other intervertebral disc degeneration, lumbar region without mention of lumbar back pain or lower extremity pain (principal) | CPT/HCPCS: 99212 ==

== ENCOUNTER 2025-05-09 06:06 | Outpatient (REF) | payer MEDICARE, SELFPAY ==
--- NOTE | ~2025-05-09 | FL_ITS ---
EXAMINATION: FL GUIDANCE ONLY HISTORY: M54.16 - Radiculopathy, lumbar region COMPARISON: None available. TECHNIQUE: Fluoroscopy time: 0.2 minutes. Cumulative Dose: 4.47 mGy. DAP: 0.0748 mGym2 Images: 2. FINDINGS: Fluoroscopic spot films of the lumbar spine demonstrate a needle and contrast material inferior to the left L5 pedicle. FL/FL guidance in treatment room IMPRESSION: Fluoroscopy during procedure. Please see procedure report for additional information. Electronically signed by: Javier Osman MD 05/09/2025 09:47 AM EDT
--- OUTSIDE RECORDS SUMMARY | 2025-05-09 06:10 | XMS_ITS | Patient Health Record ---
Author Organization [facility] Address [address] [place] [address] Care Team Providers Care Field Artillery Radar Operator Name Role Phone Nataliia Hinojosa MD Primary Care Provider Javier Velázquez Unavailable [phone] Allergies Allergen (clinical drug ingredient) Drug/Non Drug [...] Problem Status W/U Status Risk Notes Problem 323795646 Colon cancer screening (Z12.11) Active confirmed Problem Diverticular disease of colon (880596874) Diverticulosis of large intestine without perforation or abscess without bleeding (K57.30) Active confirmed Problem 202309763 Gastroesophageal reflux disease with esophagitis (K21.0) Active confirmed Problem 079457939 Gastroesophageal reflux disease without esophagitis (K21.9) Active confirmed Problem 229278967773735 Preprocedural examination (Z01.818) Active confirmed Problem 04323597 Hiatal hernia (K44.9) Active confirmed Problem 97824095 Irritable bowel syndrome, unspecified type (K58.9) Active confirmed Plan Of Treatment Future Test Test Name Order Date UPPER GI ENDOSCOPY 06/10/2011 COLONOSCOPY 06/10/2011 UPPER GI ENDOSCOPY 08/05/2019 COLONOSCOPY 09/09/2022 Insurance Providers Payer Name Payer Address Payer Phone Subscriber Number Group Number Insured Name Patient Relationship to Insured Coverage Start Date Coverage End Date [address] [address] [place] [id number] NHUNG Garibay TSEFANIE Self - patient is the insured Medical [...] in 2001 and in 2006 Hyperlipidemia Denies [place],DM,CVA,Lung disease,renal dise ase 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 Green Osteoarthritis Asthma Colonoscopy November 2011 with [...] surgery is schedu led for 09/28/19 at [facility] [place] Benign breast biopsies Thyroid surgery precancerous --right lo be removed Midfoot fusion surgery-right --05/2022--wearing a boot on the foot as of the 08/2022 OV
--- OUTSIDE RECORDS SUMMARY | 2025-05-09 06:10 | XMS_ITS | Encounter Summary ---
Author Organization [facility] Address [address] [place] [address] Phone Care Team Providers Care Middle School Baseball Coach Name Role Phone Rd Lowery MD Primary Care Provider [phone]- [phone] Encounter Details Date Type Department Care Team (Late st Contact Info) Description 07/22/[address] [facility] [address] [place] [address] Social History Tobacco Use Types Packs/Day Years Used Date Smoking Tobacco: Never Assessed Comments Unknown Sex and Gender Information Value Date Recorded Sex Assigned at Not on file Legal Sex Female 10:35 PM EDT Gender Identity Not on file Sexual Orientation Not on file documented as of this encounter Plan of Treatment Not on file documented as of this encounter Visit Diagnoses Not on filedocumented in this encounter Care Teams Middle School Baseball Coach Relationship Specialty Start Date End Date Rd Lowery MD [email or web address] PCP - General Internal Medicine 04/16/18 documented as of this encounter Additional Source Comments The information contained in this document represents components of the legal health record. It is not the complete legal health record.[facility]
--- OUTSIDE RECORDS SUMMARY | 2025-05-09 06:10 | XMS_ITS | Clinical Summary ---
Author Organization [facility] Address [address] [place] [address] Phone Care Team Providers Care Manager Oracle Retail Name Role Phone Louis Quijano Primary Care Provider [phone] Surgical History Surgery Date Site/Laterality Comments STEREOTACTIC [...] Associated Diagnosis Comments BD BONE DENSITY DXA AXIAL SKELETON Routine 02/02/2025 8:38 AM EDT Age-related osteoporosis without current pathological fracture MG MAMMO DIGITAL SCREENING W TYSHAWN BILAT Routine 01/12/2025 10:07 AM EDT Encounter for screening mammogram for breast cancer from Last 3 Months or Most Recently Relevant to Health Maintenance Results * BD Bone Density DXA Axial Skeleton [...] probability of hip fracture of 3.6%. Code 67221 -------- FINAL REPORT -------- Dictated By: Bam Sanchez Dictated Date: 02/03/2025 07:50 ET Assigned Physician: Bam Sanchez Reviewed and Electronically Signed By: Bam Sanchez Signed Date: 02/03/2025 07:51 ET Workstation ID: [id number] Transcribed By: Self Edit Transcribed Date: 02/03/2025 [...] density of the femurs bilaterally is 0.806 gm/kz0amolb is 80% of that of young normals [...] probability of hip fracture of 3.6%. Code 97459 -------- FINAL REPORT -------- Dictated By: Bam Sanchez Dictated Date: 02/03/2025 07:50 ET Assigned Physician: Bam Sanchez Reviewed and Electronically Signed By: Bam Sanchez Signed Date: 02/03/2025 07:51 ET Workstation ID: [id number] Transcribed By: Self Edit Transcribed Date: 02/03/2025 [...] year. Mammo Location: [facility], [address] [place] [address], [address], . -------- FINAL REPORT -------- Dictated By: Demetra Meadows Dictated Date: 01/12/2025 15:21 ET Assigned Physician: Demetra Meadows Reviewed and Electronically Signed By: Demetra Meadows Signed Date: 01/12/2025 15:26 ET Workstation ID: [id number] Transcribed By: Self Edit Transcribed Date: 01/12/2025 [...] been no significant change from prior exam(s). site monitor in the left medial breast. BREAST [...] has been no significantchange from prior exam(s). site monitor in the left medialbreast. BREAST DENSITY: B - There are scattered areas of fibroglandular density. IMPRESSION: No evidence of breast malignancy. BI-RADS CATEGORY: 1 - NEGATIVE RECOMMENDATION: Screening bilateral mammogram is recommended in 1 year. Mammo Location: [facility], [address] [place] [address], [address], . -------- FINAL REPORT -------- Dictated By: Demetra Meadows Dictated Date: 01/12/2025 15:21 ET Assigned Physician: Demetra Meadows Reviewed and Electronically Signed By: Demetra Meadows Signed Date: 01/12/2025 15:26 ET Workstation ID: [id number] Transcribed By: Self Edit Transcribed Date: 01/12/2025 15:21 ET us Self Referral Sppl IMG BI PROCEDURES Final Resul t from Last 3 Months or Most Recently Relevant to Health Maintenance Insurance [place] [address] MEDICARE Care Teams Manager [employer] Relationship Specialty Start Date End Date Louis Quijano PA PCP - General Physician Road Hogger Operator 01/12/25
--- OUTSIDE RECORDS SUMMARY | 2025-05-09 06:10 | XMS_ITS | Clinical Summary ---
Author Organization [facility] Address [address] [facility] [facility] [address] [place] [address] Phone Care Team Providers Care Programming Internship Name Role Phone Rd Lowery MD Primary Care Provider [phone]- [phone] Allergies Active Allergy Reactions Criticality Noted Date Comments Casein High 02/01/2019 Multiple Milk Containing Products (Dairy) High 11/04/2019 Mold Extracts High 07/04/2019 Tree Nut 07/04/2019 Other High 11/04/2019 Eggs Oxycodone Nausea and/or Vomiting 07/20/2018 Penicillins 07/20/2018 Oxycodone-Acetaminophen Itching 07/20/2018 Wheat High 07/04/2019 Medications lansoprazole (PREVACID) 30 MG capsule Take 30 mg by mouth daily. Active celecoxib (CELEBREX) 200 MG capsuleIndicatio ns:takes once daily Take 200 mg by mouth 2 (two) times a day. Indications: takes once daily Active flecainide (TAMBOCOR) 50 MG tablet Take 50 mg by mouth 2 (two) times a day. Active METOPROLOL SUCCINATE ORAL Take 12.5 mg by mouth daily. Active cyanocobalamin, vitamin B-12, 1,000 mcg/mL KitIndications:g ets injection every 2 weeks Inject 1,000 mcg as directed every 28 days. Use as directed Indications: gets injection every 2 weeks Active Ca cit-D3-mag#11-zi gg-ubbc-dgq-bor (CALTRATE 600+D) 600 mg calcium- 800 unit-50 mg Tab Take 1 tablet by mouth 2 (two) times a day. Active biotin-silicon xgmk-M-udteciwl 5,000 mcg -10 mg-50 mg TbER Take by mouth. A ctive Medication-Free TextIndications: eyela eye injections Active cycloSPORINE (RESTASIS) 0.05 % suspensionIndica tions:as directed Place 1 drop into each eye 2 (two) times a day. Indications: as directed Active vit C/E/Zn/coppr/lut ein/zeaxan (PRESERVISION AREDS-2 ORAL) Take by mouth 2 (two) times a day. Active cholecalciferol (VITAMIN D3) 1,000 unit tablet Take 1,000 Units by mouth 2 (two) times a day. Active denosumab (PROLIA SUBQ) Inject under the skin. Active aflibercept (EYLEA) 2 mg/0.05 mL Soln intravitreal solution 2 mg by Intravitreal route once. Active beclomethasone (QVAR) 80 mcg/actuation inhaler Inhale 1 puff into the lungs 2 (two) times a day. 3 Inhaler 3 0 Active albuterol 90 mcg/actuation inhaler USE 2 INHALATIONS EVERY 6 HOURS NEEDED FOR WHEEZING. 25.5 g 2 1 Active montelukast (SINGULAIR) 10 mg tabletIndication s:Moderate persistent asthma without complication Take 1 tablet (10 mg total) by mouth nightly at bedtime. 90 tablet 3 2 Active Active Problems Problem Noted Date Diagnosed Date Moderate persistent asthma without complication 07/24/2018 Assessment & Plan (11/04/2019 9:20 AM EST): Recommend continue Singulair and Qvar. Assessment & Plan (07/01/2019 9:25 AM EDT): Continue Qvar twice a day. FeNO <25 Stay at 1 puff BID. Assessment & Plan (02/23/2019 9:28 AM EDT): Checked FeNO and it was moderately elevated. Will continue Qvar but creased to 1 puff twice daily. Also reinforced to patient that she take it every day. Assessment & Plan (10/11/2018 8:51 AM EST): Seems to be stable on the Qvar. Does qualify for Nucala based on eosinophil count. We will wait and see how she does in the summer and if she is having increased symptoms we will initiate the Nucala. In the meanwhile I am trying some Medrol Dosepak for both the asthma and the otitis. Assessment & Plan (07/24/2018 2:44 PM EST): Recommend adding Singulair and inhaled corticosteroid with Qvar. Patient has been off of controller medications but exhaled nitric oxide level is elevated. She is likely a good candidate for Nucala. We will repeat CBC with diff, as well as an IgE and Aspergillus antigen. She does have known allergies to Aspergillus [place] which was tested in the past. Whether she could be experiencing allergic pulmonary aspergillosis is a consideration. Again IgE level would be helpful for that. Patient is due to have a CT of her chest [facility]. High-resolution images looking for upper lobe bronchiectasis would also be helpful for that. 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 Should be fine to take Singulair. Assessment & Plan (02/23/2019 9:27 AM EDT): Eulailoulair feels like the correct medication but given her casein allergy might not be an option. I will call the pharmacy and look into it prior to our next visit. Assessment & Plan (07/24/2018 2:39 PM EST): Patient has a casein allergy and perhaps her poor response to inhalers to that. Suspect it was more the long-acting beta agonist given her symptoms. Alenir does have lactose so we shall have to be careful with that. Sinusitis with nasal polyps 07/24/2018 Assessment & Plan (11/04/2019 9:21 AM EST): recurrent sinusitis. Will try doxycycline and a short course of prednisone. Assessment & Plan (02/23/2019 9:27 AM EDT): Following up with ENT. Vasculitis panel has been negative. Assessment & Plan (10/11/2018 8:52 AM EST): Continue with the nasal sprays. Vasculitis panel has been negative. Patient is on nasal steroid and saline. Jocelyn pot worsens her ear issues and so she is off of that. 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 We will repeat blood work with ANCAs. Family History Medical History Relation Comments Asthma Brother Asthma Sister Relation Status Comments Brother Sister Social History Tobacco Use Types Packs/Day Years Used Date Smoking Tobacco: Former Cigarettes Q uit: 2008 Smokeless Tobacco: Never Education Answer Date Recorded Are you interested in more education? Not on julio césar e 01/09/2023 Are you concerned about learning? Not on file 01/09/2023 No 01/09/2023 No 01/09/2023 Digital Access Answer Date Recorded No 02/07/2023 No 02/07/2023 No 02/07/2023 Reliable internet access at home? Not on file 02/07/2023 Device with a working camera? Not on file Comments Unknown Sex and Gender Information Value Date Recorded Sex Assigned at Not on file Legal Sex Female 10:35 PM EDT Gender Identity Not on file Sexual Orientation Not on file Last Filed Vital Signs Vital Sign Reading Time Taken Comments Blood Pressure 120/60 11/04/2019 8:48 AM EST Pulse 56 11/04/2019 8:48 AM EST Temperature 36.8 C (98.2 F) 02/23/2019 8:54 AM EDT Respiratory Rate - - Oxygen Saturation 97% 11/04/2019 8:48 AM EST Inhaled Oxygen Concentration - - Weight 80.7 kg (178 lb) 11/04/2019 8:48 AM EST Height 156.2 cm (5' 1.5 ) 08/25/2019 11:51 AM ES T Body Mass Index 33.09 08/25/2019 11:51 AM EST Plan of Treatment Health Maintenance Due Date Last Done Comments Adult Td,Tdap Booster 1955 LIPID PANEL 1955 DEPRESSION SCREENING 1967 SMOKING Hx and SMOKELESS TOB ACCO SCREENING 1968 HEPATITIS C SCREENING 1973 PNEUMOCOCCAL VACCINES (50+ y ears) (1 of 2 - PCV) 1974 MAMMOGRAM 1995 COLOGUARD 2000 COLONOSCOPY 2000 COLORECTAL CANCER SCREENING 2000 FIT TEST 2000 FOBT 2000 SIGMOIDOSCOPY 2000 VIRTUAL COLONOSCOPY 2000 ZOSTER VACCINES (1 of 2) 2005 RSV VACCINE (1 - Risk 60-74 years 1-dose series) 2015 OSTEOPOROSIS SCREENING INITI AL (ONE-TIME) 2020 COVID-19 VACCINE (2 - 2023-2 5 season) 2024 11/05/2020 HEPATITIS A VACCINES Aged Out No long er eligible based on patient's age to complete this topic HIB VACCINES Aged Out No longer eligi ble based on patient's age to complete this topic MENINGOCOCCAL VACCINES (ACWY) Aged Out No longer eligible based on patient's age to complete this topic MENINGOCOCCAL VACCINES (B) Aged Out N o longer eligible based on patient's age to complete this topic Medical Devices Not on file Insurance [facility] BLUE CROSS OUT OF STATE PPO BLUE CROSS OUT OF STATE PPO BLUE CROSS OUT OF STATE PPO BLUE CROSS OUT OF STATE PPO BLUE CROSS OUT OF STATE PPO BLUE CROSS OUT OF STATE PPO BLUE CROSS OUT OF STATE PPO OUT [facility] PPO Care Teams Programming Internship Relationship Specialty Start Date End Date Rd Lowery MD [email or web address] PCP - General Internal Medicine 04/16/18 Additional Source Comments The information contained in this document represents components of the legal health record. It is not the complete legal health record.[facility]
--- OUTSIDE RECORDS SUMMARY | 2025-05-09 06:10 | XMS_ITS ---
Author Name [facility] Organization Unknown Encounters Encounter Type Encounter Reason Primary Diagnosis Location Date Emergency HEAD LUH,LYMPH NODE S SWOLLEN,EAR PAIN/BLOCKED [facility] 05/03/2025 Care Team Organization Name Specialty Phone Email Start Date End [facility] Physician NO PRIMARY CARE Primary Care 05/03/2025
--- OUTSIDE RECORDS SUMMARY | 2025-05-09 06:10 | XMS_ITS | Patient Health Record ---
Author Organization [facility] Address [address] [place] [address] Care Team Providers Care Print Producer Name Role Phone Nataliia Hinojosa MD Primary Care Provider Kamalaa Cindy Gama Unavailable [phone] Allergies Allergen (clinical drug ingredient) Drug/Non Drug [...] Treatment Pending Test Test Name Order Date 16118- Debride <25 sq cm 12/10/2017 59157 I&D ABSCESS- SIMPLE,SINGLE 018 Insurance Providers Payer Name Payer Address Payer Phone Subscriber Number Group Number Insured Name Patient Relationship to Insured Coverage Start Date Coverage End Date [employer] Medicare [id number] [address] [address] [place] [phone] [id number] Clinton Hoyt Self - patient is the [...]
--- OUTSIDE RECORDS SUMMARY | 2025-05-09 06:10 | XMS_ITS | Encounter Summary ---
Author Organization [facility] Address [address] [facility] [address] [place] [id number] Phone Care Team Providers Care Master [employer] Name Role Phone Rd Lowery MD Primary Care Provider +1- [phone] Encounter Details Date Type Department Care Team (Late st Contact Info) Description 01/26/2020 Ancillary Orders [facility],Outside Imaging [address] [place] [address] System, Provider [place] In, [place] [address] Social History Tobacco Use Types Packs/Day Years [...] on filedocumented in this encounter Care Teams Master [employer] Relationship Specialty Start Date End Date Rd Lowery MD [email or web address] PCP - General Internal Medicine 04/16/18 documented as of this encounter Additional Source Comments The information contained in this document represents components of the legal health record. It is not the complete legal health record.[facility]
== END 2025-05-09 06:07 | disposition home or self-care (01) ==
LOC: CF 06:06
PROVIDERS: Visit Provider Anesthesiology
DX: M54.16 Radiculopathy, lumbar region (principal)
CPT/HCPCS: 64483; J2003; Q9967

== ENCOUNTER 2025-05-09 08:06 | Outpatient (AMB) | payer MEDICARE, SELFPAY ==
[2025-05-09 08:16] VITALS: BP 145/67; PULSE 73; RESP 18; O2SAT 95; BMI 33.1
--- NOTE | 2025-05-09 08:16 | MHC.OFFVIS ---
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: No Allergies oxycodone (From Percocet) Allergy (Mild, Verified 03/21/25 13:04) NAUSEA,HIVES,THROWING UP/ codeine (Codeine) Adverse Reaction (Mild, Verified 03/21/25 13:04) Constipation dairy protein Allergy (Severe, Uncoded 02/13/25 09:34) Diarrhea dairy,eggs, wheat,nuts,mold Allergy (Severe, Uncoded 02/13/25 09:34) Diarrhea [facility] Medical History On beta kendal at home Atrial fibrillation Vitamin B 12 deficiency Multinodular thyroid Osteoporosis Vitamin D deficiency Lymphadenopathy of head and neck Neck pain Normal colonoscopy History of mammogram Asthma Hyperlipidemia GERD (gastroesophageal reflux disease) Arrhythmia Surgical History History of surgery History of lumpectomy of both breasts Hx of cholecystectomy History of esophagogastroduodenoscopy (EGD) H/O colonoscopy History of thyroidectomy S/P foot surgery, right History of rotator cuff surgery Carpal tunnel syndrome H/O arthroscopy of right knee History of breast biopsy History of hysterectomy Family History Father CAD (coronary artery disease) CVD (cardiovascular disease) Mother No problems noted. Brother Cancer Sister Liver cancer CVD (cardiovascular disease) Breast cancer Other Mental health disorder Social History Housing: House Alcohol intake: current Alcohol intake frequency: holidays/special occasions only Patient Tobacco Use Status: Former Tobacco user Tobacco use type: Cigarette Cigarettes Per Day: 5 Years Smoked: 35 e-Cigarette/Vaping Use: Never Used Second Hand Smoke Exposure: Yes service: No Current occupational status: retired Cognitive needs: No Hearing needs: No Vision needs: Yes (Glasses) Physical Exam Vital Signs: Last Vital Signs Pulse 70 05/09/25 08:42 Resp 20 05/09/25 08:42 BP 129/66 05/09/25 08:42 Pulse Ox 96 05/09/25 08:42 Oxygen Delivery Method Room Air 05/09/25 08:42 BMI result Body Mass Index 33.1 Assessment & Plan Assessment & Plan (1) Lumbar radiculopathy: Code(s): M54.16 - Radiculopathy, lumbar region Category: Medical Plan Transforaminal left L5-S1 epidural steroid injection Informed consent was thoroughly explained to the patient before the procedure.? The patient came to the operating room.? He was positioned prone on operating table with a pillow under his abdomen.? Time-out was performed delineating correct site and side of the procedure, nature of the injection, name and date of of the patient. The lower back of the patient was prepped with ChloraPrep and draped with sterile utility towels.? C-arm was brought over the operating field and sq picture of L5 vertebra was demonstrated on the screen.? The left side was chosen as the side of the injection.? Tilting machine ipsilateral to the left at the level of L5 the most prominent picture of the superior articular process of S1 on the left was obtained on the screen. Lateral border of theSAP on the left projection to the skin small amount of lidocaine 1% 2 cc was injected to anesthetize the skin.? After that 5 in 22 gauge Quincke point needle was inserted through the skin wheal and was advanced toward the L5-S1 foramina on anterior posterior , lateral and oblique views intermittently.? Injection of the contrast was performed demonstrating epidural and perineural spread of the contrast. No intravascular nor intrathecal spread of the contrast was noted. After that preservative-free lidocaine 2% 4 mL was injected into the needle. Upon completion of the injection the needle was withdrawn and sterile Band-Aid was applied. The patient tolerated the procedure well , no immediate complications were observed. Orders: Orders FL guidance in treatment room Today M54.16 - Radiculopathy, lumbar region Coding Level of Care Code Procedure Only Diagnoses Lumbar radiculopathy M54.16
[2025-05-09 08:42] VITALS: BP 129/66; PULSE 70; RESP 20; O2SAT 96
== END 2025-05-09 08:42 | disposition home or self-care (01) ==
LOC: HO.PMCPRC 08:06
PROVIDERS: PCP Physician Assistant; Visit Provider Anesthesiology
DX: M54.16 Radiculopathy, lumbar region (principal)
CPT/HCPCS: 64483

== ENCOUNTER 2025-05-26 08:26 | Outpatient (AMB) | payer MEDICARE, SELFPAY ==
[2025-05-26 08:31] VITALS: BP 132/58; PULSE 62; RESP 16; O2SAT 95; BMI 33.5
--- NOTE | 2025-05-26 08:31 | A.OFFVIS_ITS ---
Vital Signs 05/26/25 08:31 Height 5 ft 1.5 in Weight 180 lb BMI 33.5 BP 132/58 L Blood Pressure Location Rt brachial Position Sitting Respiration 16 Pulse 62 Pulse Source Pulse Oximeter Pulse Oximetry (%) 95 Oxygen Delivery Method Room Air Intake Visit Reasons: S/P LEFT L5-S1 TFESI W/O STEROID Dowel Sticker Operator Required: No Accompanied by: Self / Same As Patient Allergies oxycodone (From Percocet) Allergy (Mild, Verified 05/26/25 08:37) NAUSEA,HIVES,THROWING UP/ codeine (Codeine) Adverse Reaction (Mild, Verified 05/26/25 08:37) Constipation dairy protein Allergy (Severe, Uncoded 02/13/25 09:34) Diarrhea dairy,eggs, wheat,nuts,mold Allergy (Severe, Uncoded 02/13/25 09:34) Diarrhea HPI Comments Details: The patient is a 70-year-old female presenting one-week status post left L5-S1 transforaminal epidural injection without the use of steroids. She reports only a couple hours of improvement in her pain. The pain has been persistent and is not significantly alleviated by previous interventions such as injections without steroids, which provided only temporary relief for a few hours. She has been advised against steroid use by her facility practice specialist. She is reluctant to take additional medications, expressing concerns about the side effects of gabapentin and preferring to avoid further pharmacological interventions. The patient has osteoporosis, which contributes to her fear of falling and exacerbates her pain management challenges. She has attempted physical therapy but has faced difficulties with scheduling and follow-up, leading to frustration with the process. Despite these challenges, she remains committed to trying non- surgical interventions before considering more invasive options. - Pain is persistent and not significantly alleviated by injections without steroids, providing only temporary relief for a few hours. - Discomfort when sleeping on the side due to rotator cuff surgery and hardware placement. - Fear of falling due to osteoporosis exacerbates pain management challenges. - Affect: Pain impacts daily activities and psychological wellbeing, causing frustration and fear of falling. - Analgesia: Current medications include gabapentin, which is not significantly effective; patient is reluctant to use additional medications. - Adverse Effects: Concerns about side effects of gabapentin and potential liver damage from Tylenol use. - Activities of Daily Living: Pain limits ability to perform household tasks and participate in activities like gardening. - Aberrant Drug Related Behaviors: No evidence of medication misuse; patient is cautious about medication use. [facility] Medical History On beta kendal at home Atrial fibrillation Vitamin B 12 deficiency Multinodular thyroid Osteoporosis Vitamin D deficiency Lymphadenopathy of head and neck Neck pain Normal colonoscopy History of mammogram Asthma Hyperlipidemia GERD (gastroesophageal reflux disease) Arrhythmia Surgical History History of surgery History of lumpectomy of both breasts Hx of cholecystectomy History of esophagogastroduodenoscopy (EGD) H/O colonoscopy History of thyroidectomy S/P foot surgery, right History of rotator cuff surgery Carpal tunnel syndrome H/O arthroscopy of right knee History of breast biopsy History of hysterectomy Family History Father CAD (coronary artery disease) CVD (cardiovascular disease) Mother No problems noted. Brother Cancer Sister Liver cancer CVD (cardiovascular disease) Breast cancer Other Mental health disorder Social History Housing: House Alcohol intake: current Alcohol intake frequency: holidays/special occasions only Patient Tobacco Use Status: Former Tobacco user Tobacco use type: Cigarette Cigarettes Per Day: 5 Years Smoked: 35 e-Cigarette/Vaping Use: Never Used Second Hand Smoke Exposure: Yes service: No Current occupational status: retired Cognitive needs: No Hearing needs: No Vision needs: Yes (Glasses) Review of Systems Const Details: - Musculoskeletal: Reports chronic lower back pain and fear of falling due to osteoporosis. - Neurological: Reports pain exacerbated by nerve pinching, causing cramps from tailbone to legs. Physical Exam Exam Exam: General: awake, alert, oriented. Answers questions appropriately. Fully engaged in examination. Skin: warm, dry, intact HEENT: Normocephalic. Hearing intact. Cardiac: External chest normal in appearance. Respiratory: No cough, audible wheezing or stridor. Abdomen: without gross distension. MS: No obvious swelling or deformities. Neurological: Oriented to person, place, time and situation. Thought process intact. No gait abnormalities appreciated. Psychiatric: Appropriate mood and affect. Good judgment and insight. Vital Signs: Last Vital Signs Pulse 62 05/26/25 08:31 Resp 16 05/26/25 08:31 BP 132/58 L 05/26/25 08:31 Pulse Ox 95 05/26/25 08:31 Oxygen Delivery Method Room Air 05/26/25 08:31 BMI result Body Mass Index 33.5 Results Reviewed Results Reviewed: 02/21/2025 MR/MR lumbar spine wo con FINDINGS: Last rib-bearing vertebra labeled T12. Grade 1 anterolisthesis L4-5. Bone marrow STIR signal in the inferior endplate of T11 and the superior endplate of T12. STIR signal abnormality at the L4-5 and L5-S1 facet joints. Multilevel marginal osteophyte formation and disc desiccation more pronounced at T11-12 L4-5 levels. Grade 1 anterolisthesis L2-3 and L3-4 on a degenerative basis. Conus medullaris ends at pedicle of L1 with normal signal. T11-12: Broad-based disc bulging. No compression upon neural elements. T12-L1: No compression upon neural elements. L1-2: No compression upon neural elements. L2-3: Broad-based disc bulging. No compression upon neural elements. L3-4: Broad-based disc bulging. Facet joint and ligamentum flavum hypertrophy. Reduced AP diameter of the thecal sac and neuroforamina. No compression upon neural elements. L4-5: Broad-based disc bulging. Grade 1 anterolisthesis. Hypertrophy of the ligamentum flavum and facet joints with facet joint effusions. Central spinal canal and to a lesser extent bilateral neuroforamina stenosis encroaching the neural elements. L5-S1: Broad-based disc bulging. Facet joint and ligamentum flavum hypertrophy. Prominent epidural fat in a circumferential fashion. Reduced AP diameter of the thecal sac and neuroforamina likely encroaching the exiting nerve roots, left greater than the right side. No prevertebral compartment hematoma, mass or fluid collection. IMPRESSION: Grade 1 anterolisthesis on a degenerative basis resulting in central spinal canal and bilateral neuroforamina stenosis encroaching the neural elements. Spondylosis at multiple levels more pronounced at L5-S1 encroaching the exiting nerve roots. Assessment & Plan Assessment & Plan (1) Degenerative disc disease, lumbar: Code(s): M51.369 - Other intervertebral disc degeneration, lumbar region without mention of lumbar back pain or lower extremity pain Category: Medical (2) Osteoporosis: Code(s): M81.0 - Age-related osteoporosis without current pathological fracture Category: Medical Qualifiers: Osteoporosis type: age-related Presence of current pathological fracture: without current pathological fracture Qualified Code(s): M81.0 - Age- related osteoporosis without current pathological fracture (3) Lumbar radiculopathy: Code(s): M54.16 - Radiculopathy, lumbar region Category: Medical (4) Chronic pain syndrome: Code(s): G89.4 - Chronic pain syndrome Category: Medical Plan The patient is advised to continue with physical therapy to manage her chronic pain, focusing on core strengthening and improving mobility. She should monitor her response to physical therapy and report any exacerbation of symptoms to her neurosurgeon. Given her reluctance to use additional medications, she is advised to try Baclofen at bedtime to assess its effectiveness in improving sleep and reducing discomfort. The patient is also advised to avoid steroid use due and to consider alternative pain management strategies such as acupuncture if physical therapy does not yield satisfactory results. A follow-up appointment with her neurosurgeon is recommended to evaluate the effectiveness of the current management plan and to discuss further options, including potential surgical interventions if necessary. We discussed spinal cord stimulation trial/implant patient is not interested with proceeding at this time. She is hesitant to proceed with any surgical interventions, though she is leaning towards neurosurgery if necessary. Patient was informed and verbally consented to the use of an ambient scribe for clinic note documentation during this visit. Patient Instructions: - Continue with physical therapy to strengthen core muscles and improve mobility. - Monitor response to physical therapy and report any worsening symptoms to your healthcare provider. - Try Baclofen at bedtime to see if it helps with sleep and discomfort. - Avoid steroid use and consider alternative therapies like acupuncture if needed. - Schedule a follow-up appointment to evaluate treatment effectiveness and discuss further options. Coding Level of Care Code Est Pt Level 3 (36967) Complex EM visit Add On G2211 Diagnoses Degenerative disc disease, lumbar M51.369 Age-related osteoporosis without current pathological fracture M81.0 Osteoporosis type: age-related Presence of current pathological fracture: without current pathological fracture Lumbar radiculopathy M54.16 Chronic pain syndrome G89.4
--- OUTSIDE RECORDS SUMMARY | 2025-05-26 08:55 | XMS_ITS | Patient Health Record ---
Author Organization [facility] Address [address] [place] [id number] Care Team Providers Care Risk Control Field Representative Name Role Phone Nataliia Hinojosa MD Primary Care Provider Javier Velázquez Unavailable [phone] Allergies Allergen (clinical drug ingredient) Drug/Non Drug [...] Problem Status W/U Status Risk Notes Problem 999975066 Colon cancer screening (Z12.11) Active confirmed Problem Diverticular disease of colon (357805149) Diverticulosis of large intestine without perforation or abscess without bleeding (K57.30) Active confirmed Problem 320164209 Gastroesophageal reflux disease with esophagitis (K21.0) Active confirmed Problem 967957441 Gastroesophageal reflux disease without esophagitis (K21.9) Active confirmed Problem 894254086673725 Preprocedural examination (Z01.818) Active confirmed Problem 93140015 Hiatal hernia (K44.9) Active confirmed Problem 25544683 Irritable bowel syndrome, unspecified type (K58.9) Active confirmed Plan Of Treatment Future Test Test Name Order Date UPPER GI ENDOSCOPY 06/10/2011 COLONOSCOPY 06/10/2011 UPPER GI ENDOSCOPY 08/05/2019 COLONOSCOPY 09/09/2022 Insurance Providers Payer Name Payer Address Payer Phone Subscriber Number Group Number Insured Name Patient Relationship to Insured Coverage Start Date Coverage End Date [facility] [address] [place] [address] [id number] NHUNG Garibay STEFANIE Self - patient is [...] in 2001 and in 2006 Hyperlipidemia Denies MS,DM,CVA,Lung disease,renal dise ase A.fib--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 Green Osteoarthritis Asthma Colonoscopy November 2011 with [...] surgery [place] schedu led [place] [facility] Benign breast biopsies Thyroid surgery precancerous --right lo be removed Midfoot fusion surgery-right --05/2022--wearing a boot on the foot as of the 08/2022 OV
--- OUTSIDE RECORDS SUMMARY | 2025-05-26 08:55 | XMS_ITS | Encounter Summary ---
Author Organization [facility] Address [address] [facility] [address] [place] [address] Phone Care Team Providers Care Flight Manager Name Role Phone Rd Lwoery MD Primary Care Provider +1- [phone] Encounter Details Date Type Department Care Team (Late st Contact Info) Description 01/26/2020 Ancillary Orders [facility],Outside Imaging [address] [place] [address] System, Provider Not In, [place] [address] Social History Tobacco Use Types Packs/Day Years [...] on filedocumented in this encounter Care Teams Flight Manager Relationship Specialty Start Date End Date Rd Lowery MD [email or web address] PCP - General Internal Medicine 04/16/18 documented as of this encounter Additional Source Comments The information contained in this document represents components of the legal health record. It is not the complete legal health record.[facility]
--- OUTSIDE RECORDS SUMMARY | 2025-05-26 08:55 | XMS_ITS | Clinical Summary ---
Author Organization [facility] Address [address] [facility] [address] [place] [address] Phone Care Team Providers Care Reservations Manager Name Role Phone Rd Lowery MD Primary Care Provider +1- [phone] Allergies Active Allergy Reactions Criticality Noted Date [...] injection every 2 weeks Active Ca cit-D3-mag#11-zi is-ssiu-mjw-bor (CALTRATE 600+D) 600 mg calcium- 800 unit-50 mg Tab Take 1 tablet by mouth 2 (two) times a day. Active biotin-silicon oijd-B-busxfryo 5,000 mcg -10 mg-50 mg TbER Take [...] to have a CT of her chest [facility]. High-resolution images looking for upper lobe bronchiectasis would also be helpful for that. 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 Should be fine to take Singulair. Assessment & Plan (02/23/2019 9:27 AM EDT): Eulalioulair feels like the correct medication but given [...] DEPRESSION SCREENING 1967 SMOKING Hx and SMOKELESS TOBACCO SCREENING 1968 HEPATITIS C SCREENING 1973 PNEUMOCOCCAL VACCINES (50+ years) (1 of 2 - PCV) 1974 MAMMOGRAM 1995 COLOGUARD 2000 COLONOSCOPY 2000 COLORECTAL CANCER SCREENING 2000 FIT TEST 2000 FOBT 2000 SIGMOIDOSCOPY 2000 VIRTUAL COLONOSCOPY 2000 ZOSTER VACCINES (1 of 2) 2005 RSV VACCINE (1 - Risk 60-74 years 1-dose series) 2015 OSTEOPOROSIS SCREENING INITI AL (ONE-TIME) 2020 INFLUENZA VACCINE (#1) 2025 9, 07/14/2016 COVID-19 VACCINE (2 - 2024-2 6 season) 2025 11/05/2020 HEPATITIS A VACCINES Aged Out No [...] topic Medical Devices Not on file Insurance [facility] P[facility] BLUE CROSS OUT OF STATE PPO BLUE CROSS OUT OF STATE [place] [address] [place] [address] CROSS OUT OF STATE PPO BLUE [employer]OSS OUT OF STATE PPO [place] [place] OUT OF STATE PPO BLUE CROSS OUT OF STATE PPO [place] OUT OF STATE PPO [facility] OUT OF STATE PPO Care Teams Reservations Manager Relationship Specialty Start Date End Date Rd Lowery MD [email or web address] PCP - General Internal Medicine 04/16/18 Additional Source Comments The information contained in this document represents components of the legal health record. It is not the complete legal health record.[facility]
--- OUTSIDE RECORDS SUMMARY | 2025-05-26 08:55 | XMS_ITS | Clinical Summary ---
Author Organization [facility] Address [address] [place] [phone] Phone Care Team Providers Care Placer Miner Name Role Phone Louis Quijano Primary Care Provider Surgical History Surgery Date Site/Laterality Comments STEREOTACTIC [...] 08/17/2022 Social Influencers of Health Screening 08/17/2022 Depression Screening 09/14/2024 COVID-19 Vaccine ( season) 2025 08/27/2021, 12/03/2020, 11/05/2020 Influenza Vaccine (#1) 2025 [...] probability of hip fracture of 3.6%. Code 95886 -------- FINAL REPORT -------- Dictated By: Bam Sanchez Dictated Date: 02/03/2025 07:50 ET Assigned Physician: Bam Sanchez Reviewed and Electronically Signed By: Bam Sanchez Signed Date: 02/03/2025 07:51 ET Workstation ID: [id number] Transcribed By: Self Edit Transcribed Date: 02/03/2025 [...] density of the femurs bilaterally is 0.806 gm/ux2wpugz is 80% of that of young normals [...] probability of hip fracture of 3.6%. Code 87392 -------- FINAL REPORT -------- Dictated By: Bam Sanchez Dictated Date: 02/03/2025 07:50 ET Assigned Physician: Bam Sanchez Reviewed and Electronically Signed By: Bam Sanchez Signed Date: 02/03/2025 07:51 ET Workstation ID: [id number] Transcribed By: Self Edit Transcribed Date: 02/03/2025 [...] year. Mammo Location: [facility], [address] [place] [address], [address], . -------- FINAL REPORT -------- Dictated By: Demetra Meadows Dictated Date: 01/12/2025 15:21 ET Assigned Physician: Demetra Meadows Reviewed and Electronically Signed By: Demetra Meadows Signed Date: 01/12/2025 15:26 ET Workstation ID: [id number] Transcribed By: Self Edit Transcribed Date: 01/12/2025 [...] been no significant change from prior exam(s). lamination assembler in the left medial breast. BREAST DENSITY: [...] has been no significantchange from prior exam(s). lamination assembler in the left medialbreast. BREAST DENSITY: B - There are scattered areas of fibroglandular density. IMPRESSION: No evidence of breast malignancy. BI-RADS CATEGORY: 1 - NEGATIVE RECOMMENDATION: Screening bilateral mammogram is recommended in 1 year. Mammo Location: [facility], [address] [place] [address], [id number], . -------- FINAL REPORT -------- Dictated By: Demetra Meadows Dictated Date: 01/12/2025 15:21 ET Assigned Physician: Demetra Meadows Reviewed and Electronically Signed By: Demetra Meadows Signed Date: 01/12/2025 15:26 ET Workstation ID: [id number] Transcribed By: Self Edit Transcribed Date: 01/12/2025 15:21 ET us Self Referral Sppl IMG BI PROCEDURES Final Resul t from Last 3 Months or Most Recently Relevant to Health Maintenance [place] [address] [place] [address] MEDICARE Care Teams Placer Miner Relationship Specialty Start Date End Date Louis Quijano PA PCP - General Physician Car Sander 01/12/25
--- OUTSIDE RECORDS SUMMARY | 2025-05-26 08:55 | XMS_ITS | Encounter Summary ---
Author Organization [facility] Address [address] [place] [address] Phone Care Team Providers Care Warehousing Technician Name Role Phone Rd Lowery MD Primary Care Provider +1- [phone] Encounter Details Date Type Department Care Team (Late st Contact Info) Description 07/22/2018 Procedure Pass [facility] [address] [place] [address] Social History Tobacco Use Types Packs/Day Years [...] on filedocumented in this encounter Care Teams Warehousing Technician Relationship Specialty Start Date End Date Rd Lowery MD [email or web address] PCP - General Internal Medicine 04/16/18 documented as of this encounter Additional Source Comments The information contained in this document represents components of the legal health record. It is not the complete legal health record.[facility]
--- OUTSIDE RECORDS SUMMARY | 2025-05-26 08:55 | XMS_ITS | Patient Health Record ---
Author Organization [facility] Address [address] [place] [address] Care Team Providers Care Conversion Worker Name Role Phone Nataliia Hinojosa MD Primary Care Provider Kamalaa Cindy Gama Unavailable [phone] Allergies Allergen (clinical drug ingredient) Drug/Non Drug [...] Treatment Pending Test Test Name Order Date 53069- Debride <25 sq cm 12/10/2017 31426 I&D ABSCESS- SIMPLE,SINGLE 018 Insurance Providers Payer Name Payer Address Payer Phone Subscriber Number Group Number Insured Name Patient Relationship to Insured Coverage Start Date Coverage End Date [employer] Medicare [id number] [address] [address] [place] [address] [id number] Clinton Hoyt Self - patient is the [...]
== END 2025-05-26 09:05 | disposition home or self-care (01) ==
LOC: HO.PMC 08:27
PROVIDERS: PCP Physician Assistant; Visit Provider Registered Nurse Emergency
DX: M51.369 Other intervertebral disc degeneration, lumbar region without mention of lumbar back pain or lower extremity pain (principal); M81.0 Age-related osteoporosis without current pathological fracture; M54.16 Radiculopathy, lumbar region; G89.4 Chronic pain syndrome
CPT/HCPCS: 99213; G2211

== ENCOUNTER → 2025-05-26 08:26 | Outpatient (BNVA) | payer MEDICARE, SELFPAY | PROVIDERS: PCP Physician Assistant; Visit Provider Registered Nurse Emergency | DX: M81.0 Age-related osteoporosis without current pathological fracture (principal); M54.16 Radiculopathy, lumbar region; G89.4 Chronic pain syndrome; M51.369 Other intervertebral disc degeneration, lumbar region without mention of lumbar back pain or lower extremity pain | CPT/HCPCS: 99212 ==

== ENCOUNTER 2025-07-03 09:01 | Outpatient (AMB) | payer MEDICARE, SELFPAY ==
--- NOTE | 2025-07-03 09:08 | A.SPINEOV_ITS ---
Intake Visit Reasons: f/up after injections Intake Note: Ms. Thomas is here today for a F/u after injections. Executive Assistant To General Counsel Required: No Allergies oxycodone (From Percocet) Allergy (Mild, Verified 05/26/25 08:37) NAUSEA,HIVES,THROWING UP/ codeine (Codeine) Adverse Reaction (Mild, Verified 05/26/25 08:37) Constipation dairy protein Allergy (Severe, Uncoded 02/13/25 09:34) Diarrhea dairy,eggs, wheat,nuts,mold Allergy (Severe, Uncoded 02/13/25 09:34) Diarrhea Assessment & Plan Assessment & Plan (1) Lumbar radiculitis: Code(s): M54.16 - Radiculopathy, lumbar region Category: Medical Plan Clinton is a pleasant 70 year old female who comes in today for follow up after dean ng evaluated by our colleagues in pain management and attempting a left-sided L5-S1 injection. She reports that she got about 4 hours relief after the injection, and is somewhat disheartened she did not get lasting relief from it. She recently started physical therapy about 3 weeks ago and has been attempting to engage with them twice weekly and practice her physical therapy exercises at home. She did discuss the possibility of trialing a dose of baclofen before bedtime to help with her symptoms overnight, she often times will wake up in pain when changing positions while sleeping. She continues to report some very mild low back pain, accompanied by a more severe pain which she describes as a shooting pain from her coccyx area into her bilateral posterior buttocks and bilateral thighs. This is significantly worse on the left-hand side. I again reviewed her MRI imaging which shows fairly significant bilateral lateral recess stenosis at L4-5. There is also notable right sided stenosis of L5-S1. I also reviewed her Lumbar spine x-rays again which show a notable grade 1 lithesis at L4-5. We discussed continuum of care options. The obvious potential surgical intervention be an L4-5 lumbar decompression. We discussed the risks/benefits of this. I do believe it would be beneficial at addressing the leg pain that she is describing, however it is not without potential risk. Given the fact that she has listhesis in baseline osteoporosis in his very possible that she could have worsening instability after lumbar decompression at L4-5. If that did happen we would be in a difficult situation for further treatment as she would likely develop fairly significant back pain, and with her current diagnosis of osteoporosis lumbar fusion with the very difficult to attempt as a further treatment option. I recommended that she attempt to finish her current course of physical therapy, and began trialing baclofen before bed. She was encouraged to call and follow up with our office after physical therapy if her symptoms only continued to worsen. James Wick MD,PhD [facility] Medications: Changed From baclofen 10 mg PO BID 7 days PRN 14 tabs 0RF muscle spasm G95.9 - Disease of spinal cord, unspecified To baclofen 10 mg PO BID PRN 30 tabs 0RF muscle spasm G95.9 - Disease of spinal cord, unspecified Coding Level of Care Code Global (18366) Diagnoses Lumbar radiculitis M54.16
== END 2025-07-03 09:34 | disposition home or self-care (01) ==
LOC: HO.HNS 09:01
PROVIDERS: PCP Physician Assistant; Visit Provider Physician Assistant
DX: M54.16 Radiculopathy, lumbar region (principal)
CPT/HCPCS: 99214

== ENCOUNTER → 2025-07-03 09:01 | Outpatient (BNVA) | payer MEDICARE, SELFPAY | PROVIDERS: PCP Physician Assistant; Visit Provider Physician Assistant | DX: M54.16 Radiculopathy, lumbar region (principal) | CPT/HCPCS: 99212 ==

== ENCOUNTER 2025-08-04 08:17 | Outpatient (REF) | payer MEDICARE, SELFPAY ==
--- NOTE | ~2025-08-04 | US_ITS ---
CLINICAL HISTORY: R31.29 - Other microscopic hematuria US Renal Comparison: None provided Findings: Right kidney normal size and echotexture, 10 x 4.8 x 4.7 cm length. Left kidney normal size and echotexture, 11.9 x 4.4 x 5 cm length. There is a nearly 2.2 cm benign-appearing cortical cyst in the mid polar region of the left kidney. No complex features are seen. No hydronephrosis of either kidney. Normal color Doppler. IMPRESSION: Small benign-appearing left cortical renal cyst. Otherwise normal kidneys bilaterally. This document has been electronically signed by: Kiran Rivera MD on 08/04/2025 09:36:53
--- OUTSIDE RECORDS SUMMARY | 2025-08-04 08:19 | XMS_ITS | Encounter Summary ---
Author Organization [facility] Address [address] [facility] [address] [place] [address] Phone Care Team Providers Care Last Remodeler Repairer Name Role Phone Rd Lowery MD Primary Care Provider +1- [phone] Encounter Details Date Type Department Care Team (Late st Contact Info) Description 01/26/2020 Ancillary Orders [facility],Outside Imaging [address] [place] [address] System, Provider Not In, [place] [address] Social History Tobacco Use Types Packs/Day Years [...] on filedocumented in this encounter Care Teams Last Remodeler Repairer Relationship Specialty Start Date End Date Rd Lowery MD [email or web address] PCP - General Internal Medicine 04/16/18 documented as of this encounter Additional Source Comments The information contained in this document represents components of the legal health record. It is not the complete legal health record.[facility]
--- OUTSIDE RECORDS SUMMARY | 2025-08-04 08:20 | XMS_ITS | Clinical Summary ---
Author Organization [facility] Address [address] [place] [phone] Phone Care Team Providers Care Spool Maker Name Role Phone Louis Quijano Primary Care [...] Health Maintenance Due Date Last Done Comments Colorectal Cancer Screening: Colonoscopy 1955 RSV Immunization Adult Patients (1 - Risk 50-74 years 1-dose series) 2005 Zoster Vaccines (1 of 2) 2005 Pneumococcal Vaccine: 50+ Years (2 of 2 - PCV) 07/14/2022 07/14/2021 Cholesterol Screening (Lipid Panel) 08/17/2022 Falls Risk Assessment 08/17/2022 Hepatitis C [...] probability of hip fracture of 3.6%. Code 72137 -------- FINAL REPORT -------- Dictated By: Bam Sanchez Dictated Date: 02/03/2025 07:50 ET Assigned Physician: Bam Sanchez Reviewed and Electronically Signed By: Bam Sanchez Signed Date: 02/03/2025 07:51 ET Workstation ID: [id number] Transcribed By: Self Edit Transcribed Date: 02/03/2025 [...] density of the femurs bilaterally is 0.806 gm/nn0hdqtr is 80% of that of young normals [...] probability of hip fracture of 3.6%. Code 81430 -------- FINAL REPORT -------- Dictated By: Bam Sanchez Dictated Date: 02/03/2025 07:50 ET Assigned Physician: Bam Sanchez Reviewed and Electronically Signed By: Bam Sanchez Signed Date: 02/03/2025 07:51 ET Workstation ID: [id number] Transcribed By: Self Edit Transcribed Date: 02/03/2025 [...] Mammo Location: [facility], [address] [place] [address], [address], . -------- FINAL REPORT -------- Dictated By: Demetra Meadows Dictated Date: 01/12/2025 15:21 ET Assigned Physician: Demetra Meadows Reviewed and Electronically Signed By: Demetra Meadows Signed Date: 01/12/2025 15:26 ET Workstation ID: [id number] Transcribed By: Self Edit Transcribed Date: 01/12/2025 [...] been no significant change from prior exam(s). playground monitor in the left medial breast. BREAST [...] has been no significantchange from prior exam(s). playground monitor in the left medialbreast. BREAST DENSITY: B - There are scattered areas of fibroglandular density. IMPRESSION: No evidence of breast malignancy. BI-RADS CATEGORY: 1 - NEGATIVE RECOMMENDATION: Screening bilateral mammogram is recommended in 1 year. Mammo Location: [facility], [address] [place] [address], [phone], . -------- FINAL REPORT -------- Dictated By: Demetra Meadows Dictated Date: 01/12/2025 15:21 ET Assigned Physician: Demetra Meadows Reviewed and Electronically Signed By: Demetra Meadows Signed Date: 01/12/2025 15:26 ET Workstation ID: [id number] Transcribed By: Self Edit Transcribed Date: 01/12/2025 15:21 ET us Self Referral Sppl IMG BI PROCEDURES Final Resul t from Last 3 Months or Most Recently Relevant to Health Maintenance [place] [address] [address] [place] [address] MEDICARE Care Teams Spool Maker Relationship Specialty Start Date End Date Louis Quijano PA PCP - General Physician Document Control Supervisor 01/12/25
--- OUTSIDE RECORDS SUMMARY | 2025-08-04 08:20 | XMS_ITS | Encounter Summary ---
Author Organization [facility] Address [address] [place] [address] Phone Care Team Providers Care Retail Department Reset Name Role Phone Rd Lowery MD Primary Care Provider +1- [phone] Encounter Details Date Type Department Care Team (Late st Contact Info) Description 07/22/2018 Procedure Pass [facility] [address] [place] [address] Social History Tobacco Use Types Packs/Day Years [...] on filedocumented in this encounter Care Teams Retail Department Reset Relationship Specialty Start Date End Date Rd Lowery MD [email or web address] PCP - General Internal Medicine 04/16/18 documented as of this encounter Additional Source Comments The information contained in this document represents components of the legal health record. It is not the complete legal health record.[facility]
--- OUTSIDE RECORDS SUMMARY | 2025-08-04 08:20 | XMS_ITS | Patient Health Record ---
Author Organization [facility] Address [address] [place] [address] Care Team Providers Care Senior Ios Developer Name Role Phone Nataliia Hinojosa MD Primary Care Provider Kamalaa Cindy Gama Unavailable [phone] Allergies Allergen (clinical drug ingredient) Drug/Non Drug [...] Treatment Pending Test Test Name Order Date 35147- Debride <25 sq cm 12/10/2017 26109 I&D ABSCESS- SIMPLE,SINGLE 018 Insurance Providers Payer Name Payer Address Payer Phone Subscriber Number Group Number Insured Name Patient Relationship to Insured Coverage Start Date Coverage End Date [employer] Medicare [id number] [address] [address] [place] [phone] [id number] Clinton Hoyt Self - patient is the [...]
--- OUTSIDE RECORDS SUMMARY | 2025-08-04 08:20 | XMS_ITS | Clinical Summary ---
Author Organization [facility] Address [address] [place] [phone] Phone Care Team Providers Care Qa Auditor Name Role Phone Rd Lowery MD Primary Care Provider +1- [phone] Allergies Active Allergy Reactions Criticality Noted Date [...] injection every 2 weeks Active Ca cit-D3-mag#11-zi hm-xkow-vpy-bor (CALTRATE 600+D) 600 mg calcium- 800 unit-50 mg Tab Take 1 tablet by mouth 2 (two) times a day. Active biotin-silicon zwkq-W-jpvefpgl 5,000 mcg -10 mg-50 mg TbER Take [...] to have a CT of her chest [facility]. High-resolution images looking for upper lobe [...] FOBT 2000 SIGMOIDOSCOPY 2000 VIRTUAL COLONOSCOPY 2000 RSV VACCINE (1 - Risk 50-74 years 1-dose series) 2005 ZOSTER VACCINES (1 of 2) 2005 OSTEOPOROSIS SCREENING INITI AL (ONE-TIME) 2020 INFLUENZA [...] Devices Not on file Insurance OUT OF [facility] PPO BLUE CROSS OUT OF STATE PPO BLUE CROSS OUT OF [place] [address] [place] [address] CROSS OUT OF STATE PPO BLUE [place] OUT OF STATE PPO [place]UE [place] OUT OF STATE PPO [place]UE [place] OUT OF STATE PPO [place] OUT OF STATE PPO [facility] OUT OF STATE PPO Care Teams Qa Auditor Relationship Specialty Start Date End Date Rd Lowery MD [email or web address] PCP - General Internal Medicine 04/16/18 Additional Source Comments The information contained in this document represents components of the legal health record. It is not the complete legal health record.[facility]
--- OUTSIDE RECORDS SUMMARY | 2025-08-04 08:20 | XMS_ITS | Patient Health Record ---
Author Organization [facility] Address [address] [place] [phone] Care Team Providers Care Meat Hanger Name Role Phone Nataliia Hinojosa MD Primary Care Provider Javier Velázquez Unavailable [phone] Allergies Allergen (clinical drug ingredient) Drug/Non Drug Allergy documented on EMR Reaction Allergy Type Onset Date Status all pain meds not demerol (uncoded) Unknown Allergy Active CASINprotein, eggs mold wheat,Nuts (uncoded) Unknown Allergy Active acetaminophen / oxycodone Percocet itch Drug Allergy Active Reason For Referral No Information Medications Medication SIG (Take, Route, Frequency, Duration) Notes Start Date End Date Status Singulair 10 MG Tablet 1 tablet Orally O nce a day; Duration: 30 day(s) Active Cornelia-Q heladio plus once a week Active Prolia 60 MG/ML Solution Prefilled Syringe as directed Subcutaneous 2 x a year Active Lansoprazole 30 mg Capsule Delayed Release TAKE 1 CAPSULE TWICE A DAY (CALL OFFICE FOR APPOINTMENT) Active ProAir HFA 108 (90 Base) MCG/ACT Aerosol Solution 2 puffs as needed Inhalation every 6 hrs Active Caltrate 600+D3 600-800 MG-UNIT Tablet 1 tablet with a meal Orally Once a day; Duration: 30 day(s) Active Flonase Allergy Relief 50 MCG/ACT Suspension 1 spray in each nostril Nasally Once a day; Duration: 30 day(s) Active Gabapentin 100 MG Capsule 2 tablets Orally at hs Active Flecainide Acetate 50 MG Tablet as directed Orally Active Metoprolol Tartrate 25 MG Tablet 1 /2tablet with food orally once a day Active Cyanocobalamin 1000 MCG Tablet 1 tablet Orally twice a month Active Immunizations Vaccine Route Administration Date Status Comme nts Influenza Unknown 06/20/2019 Administered Influenza Unknown 06/13/2022 Administered Social History Tobacco Use: Social History Observation Description Date Details (start date - stop date) Former Smoker NA - NA Social History Drugs/Alcohol: Social Info Question Answer Notes Alcohol Screen Did you have a drink containing alcohol in the past year? Yes How often did you have a drink containing alcohol in the past year? Never (0 point) How many drinks did you have on a typical day when you were drinking in the past year? 1 or 2 drinks (0 point) How often did you have 6 or more drinks on one occasion in the past year? Never (0 point) Points 0 Interpretation Negative Tobacco Use: Social Info Question Answer Notes Tobacco Use/Smoking Patient is a former smoker When did you stop smoking? over 10 years ago How long has it been since you last smoked? > 10 years Additional Details Category Social Info Options Details Miscellaneous: Marital status: Occupation: [employer] service --retired 2015 Section Notes: She does smoke, and uses occ asional alcohol Nonsmoker > 10 years; uses o nly occasional alcohol Nonsmoker > 10 years; uses o nly occasional alcohol Nonsmoker > 10 years; uses o nly occasional alcohol Problems Problem Type SNOMED Code ICD Code Onset Dates Problem Status W/U Status Risk Notes Problem Colon cancer screening (444964850) Colon cancer screening (Z12.11) Active confirmed Problem Diverticular disease of colon (768613216) Diverticulosis of large intestine without perforation or abscess without bleeding (K57.30) Active confirmed Problem Gastroesophageal reflux disease with esophagitis (002348853) Gastroesophageal reflux disease with esophagitis (K21.0) Active confirmed Problem Gastroesophageal reflux disease without esophagitis (505840104) Gastroesophageal reflux disease without esophagitis (K21.9) Active confirmed Problem Preprocedural examination (724766520786137) Preprocedural examination (Z01.818) Active confirmed Problem Hiatal hernia (79526077) Hiatal hernia (K44.9) Active confirmed Problem Irritable bowel syndrome (17276997) Irritable bowel syndrome, unspecified type (K58.9) Active confirmed Plan Of Treatment Future Test Test Name Order Date UPPER GI ENDOSCOPY 06/10/2011 COLONOSCOPY 06/10/2011 UPPER GI ENDOSCOPY 08/05/2019 COLONOSCOPY 09/09/2022 Insurance Providers Payer Name Payer Address Payer Phone Subscriber Number Group Number Insured Name Patient Relationship to Insured Coverage Start Date Coverage End Date [employer] [address] [address] [place] [address] [id number] STEFANIE ALVAREZ Self - patient is the insured Medical [...] in 2001 and in 2006 Hyperlipidemia Denies OR,DM,CVA,Lung disease,renal dise ase A.fib--folder machine adjuster-Dr. Green Osteoarthritis Asthma Colonoscopy November 2011 with [...] surgery is schedu led for 09/28/19 at [facility] Benign breast biopsies Thyroid surgery precancerous --right lo be removed Midfoot fusion surgery-right --05/2022--wearing a boot on the foot as of the 08/2022 OV
[2025-08-04 10:16] LABS: Appearance Urine Clear; Glucose Urine UA Negative (Negative); PH 5.5 (5.0-9.0); Specific Gravity - Urine 1.025 (1.005-1.025)
== END 2025-08-04 08:18 | disposition home or self-care (01) ==
LOC: HO.HMGCX 08:17
PROVIDERS: Absent Provider Physician Assistant; PCP Physician Assistant; Visit Provider Urology
DX: R31.29 Other microscopic hematuria (principal); R35.0 Frequency of micturition; R31.0 Gross hematuria; R30.0 Dysuria; N32.9 Bladder disorder, unspecified; E04.2 Nontoxic multinodular goiter
CPT/HCPCS: 76775; 81003

== ENCOUNTER → 2025-08-04 08:30 | Outpatient (BNV) | payer MEDICARE, SELFPAY | PROVIDERS: Absent Provider Physician Assistant; PCP Physician Assistant; Visit Provider Radiology Diagnostic Radiology | DX: R31.29 Other microscopic hematuria (principal) | CPT/HCPCS: 76775 ==

== ENCOUNTER 2025-08-14 10:16 | Outpatient (REF) | payer MEDICARE, SELFPAY ==
--- OUTSIDE RECORDS SUMMARY | 2025-08-14 15:47 | XMS_ITS | Clinical Summary ---
Author Organization [facility] Address [address] [place] [phone] Phone Care Team Providers Care Supervisor Publications Production Name Role Phone Louis Quijano Primary Care [...] probability of hip fracture of 3.6%. Code 09103 -------- FINAL REPORT -------- Dictated By: Bam Sanchez Dictated Date: 02/03/2025 07:50 ET Assigned Physician: Bam Sanchez Reviewed and Electronically Signed By: Bam Sanchez Signed Date: 02/03/2025 07:51 ET Workstation ID: [id number] Transcribed By: Self Edit Transcribed Date: 02/03/2025 [...] density of the femurs bilaterally is 0.806 gm/tw0mmdby is 80% of that of young normals [...] probability of hip fracture of 3.6%. Code 78698 -------- FINAL REPORT -------- Dictated By: Bam Sanchez Dictated Date: 02/03/2025 07:50 ET Assigned Physician: Bam Sanchez Reviewed and Electronically Signed By: Bam Sanchez Signed Date: 02/03/2025 07:51 ET Workstation ID: [id number] Transcribed By: Self Edit Transcribed Date: 02/03/2025 [...] year. Mammo Location: [facility], [address] [place] [address], [id number], . -------- FINAL REPORT -------- Dictated By: Demetra Meadows Dictated Date: 01/12/2025 15:21 ET Assigned Physician: Demetra Meadows Reviewed and Electronically Signed By: Demetra Meadows Signed Date: 01/12/2025 15:26 ET Workstation ID: [id number] Transcribed By: Self Edit Transcribed Date: 01/12/2025 [...] been no significant change from prior exam(s). alarm security or surveillance monitor in the left medial breast. BREAST [...] has been no significantchange from prior exam(s). alarm security or surveillance monitor in the left medialbreast. BREAST DENSITY: B - There are scattered areas of fibroglandular density. IMPRESSION: No evidence of breast malignancy. BI-RADS CATEGORY: 1 - NEGATIVE RECOMMENDATION: Screening bilateral mammogram is recommended in 1 year. Mammo Location: [facility], [address] [place] [address], [id number], . -------- FINAL REPORT -------- Dictated By: Demetra Meadows Dictated Date: 01/12/2025 15:21 ET Assigned Physician: Demetra Meadows Reviewed and Electronically Signed By: Demetra Meadows Signed Date: 01/12/2025 15:26 ET Workstation ID: [id number] Transcribed By: Self Edit Transcribed Date: 01/12/2025 15:21 ET us Self Referral Sppl IMG BI PROCEDURES Final Resul t from Last 3 Months or Most Recently Relevant to Health Maintenance [place] [address] [place] [address] MEDICARE Care Teams Supervisor Publications Production Relationship Specialty Start Date End Date Louis Quijano PA PCP - General Physician Jet Blade Polisher 01/12/25
== END 2025-08-14 10:17 | disposition home or self-care (01) ==
LOC: HO.LAB 10:16
PROVIDERS: PCP Physician Assistant; Visit Provider Urology
DX: R31.29 Other microscopic hematuria (principal); D41.4 Neoplasm of uncertain behavior of bladder; R35.0 Frequency of micturition; N28.1 Cyst of kidney, acquired
CPT/HCPCS: 52000; 81003; 88112; 99212

== ENCOUNTER 2025-08-14 10:16 | Outpatient (AMB) | payer MEDICARE, SELFPAY ==
--- NOTE | 2025-08-14 10:33 | A.OFFVIS_ITS ---
Intake Visit Reasons: cysto/US(set(UA) Intake Note: Patient is present for Cystoscopy/US * 08/04 Renal US Urology Med: None Antibiotic Allergy: None Blood Thinner: Aspirin Lot #:[id number] EXP:02/21/28 Manager Continuous Improvement Required: No Accompanied by: Self / Same As Patient Allergies oxycodone (From Percocet) Allergy (Mild, Verified 08/15/25 10:25) NAUSEA,HIVES,THROWING UP/ codeine (Codeine) Adverse Reaction (Mild, Verified 08/15/25 10:25) Constipation dairy protein Allergy (Severe, Uncoded 08/15/25 10:25) Diarrhea dairy,eggs, wheat,nuts,mold Allergy (Severe, Uncoded 08/15/25 10:25) Diarrhea HPI Comments Details: 08/14/25--Clinton is a 70-year-old female who was 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 The patient also reports issues with a messed up back and nerve impingement at the L5-SI joint, which cause discomfort. Additionally, the patient notes minor problems with urinary control, describing it as intermittent. Results - Urinalysis: Negative for hematuria. - Urine Cytology (08/16/2024): Negative for malignant cells. - Renal Ultrasound (08/04/25): Revealed a 2.2 cm benign cyst in the left kidney. - Office Cystoscopy today: Findings demonstrated mild trabeculations with no new or recurrent bladder lesions. Plan 1. History Of Urothelial Papilloma - The patient underwent a surveillance office cystoscopy. The examination revealed mild bladder trabeculations but no evidence of recurrent or new bladder lesions. - The plan is to continue surveillance with a follow-up visit scheduled for next year, unless any new issues arise. 2. Benign Cyst Of Left Kidney - The 2.2 cm benign cyst in the left kidney, identified on a prior ultrasound, is considered non-concerning. No further action is required at this time. 3. Unspecified Urinary Incontinence - The patient reported minor, intermittent issues with urinary control. 08/15/24--Clinton is a 68-year-old female who presents to the office for FU, diagnosed with urothelial papilloma cystoscopy TURBT on 03/10/23, here for surveillance cystoscopy. She has lower urinary tract symptoms urgency, behavioral modification as well as VESIcare was prescribed. The patient states that she has not been taking the VESIcare she has been doing Kegel's and has cut out the caffeine from her diet. I have reviewed renal ultrasound. Cystoscopy today-findings: No suspicious bladder lesions. Will send urine for cytology follow-up in 1 year, surveillance cystoscopy, renal ultrasound prior. renal US 07/04/24--official shank boner pending, reviewed imaging, small simple cyst left kidney. 09/09/23--PMH--On beta kendal, Atrial fibrillation, Osteoporosis, Asthma, Hyperlipidemia, GERD (gastroesophageal reflux disease) Arrhythmia. 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 The entire lesion was removed as noted in the pathology report that the specimen included muscle. The patient states she is having increased urinary frequency that is bothersome. Discussed watch caffeine intake, discussed elevated BMI can impact LUTS, will trial vesicare 10 mg daily, will send surveillance urine c/s. Will continue to monitor with urine analysis and surveillance cystoscopy for up to 8 years. [facility] Medical History On beta kendal at home Atrial fibrillation Vitamin B 12 deficiency Multinodular thyroid Osteoporosis Vitamin D deficiency Lymphadenopathy of head and neck Neck pain Normal colonoscopy History of mammogram Asthma Hyperlipidemia GERD (gastroesophageal reflux disease) Arrhythmia Surgical History History of surgery History of lumpectomy of both breasts Hx of cholecystectomy History of esophagogastroduodenoscopy (EGD) H/O colonoscopy History of thyroidectomy S/P foot surgery, right History of rotator cuff surgery Carpal tunnel syndrome H/O arthroscopy of right knee History of breast biopsy History of hysterectomy Family History Father CAD (coronary artery disease) CVD (cardiovascular disease) Mother No problems noted. Brother Cancer Sister Liver cancer CVD (cardiovascular disease) Breast cancer Other Mental health disorder Social History Housing: House Alcohol intake: current Alcohol intake frequency: holidays/special occasions only Patient Tobacco Use Status: Former Tobacco user Tobacco use type: Cigarette Cigarettes Per Day: 5 Years Smoked: 35 e-Cigarette/Vaping Use: Never Used Second Hand Smoke Exposure: Yes service: No Current occupational status: retired Cognitive needs: No Hearing needs: No Vision needs: Yes (Glasses) Review of Systems Const All systems reviewed & are unremarkable except as noted in HPI and below Reports no additional complaints Eyes Reports no additional complaints ENT Reports no additional complaints Card Reports no additional complaints Resp Reports no additional complaints GI Reports no additional complaints Reports as per HPI Musc Reports no additional complaints Skin/Breast Reports system reviewed and no additional complaints, except as documented Neuro Reports no additional complaints Psych Reports no additional complaints Endo Reports no additional complaints Luis Enrique/Lymph Reports no additional complaints Aller/Immun Reports no additional complaints Office Procedures Cystoscopy Consent Discussed risk and benefit or proposed procedure with the patient. Information consent for procedure given to the patient. Discussed technical aspects, risks, benefits and alternatives in full. Addressed all of the patient's questions and concerns regarding the procedure. The patient demonstrated knowledge and understanding. They wish to proceed with this procedure. Preparation The patient was prepped in the usual manner. A maintenance instructor was present and in the room. Genitalia was prepped with betadine solution in a sterile manner. Lidocaine Jelly 2% was placed into the urethra and 16Fr flexible Olympus cystoscope was inserted into the meatus after adequate lubrication. Procedure Time out per protocol performed. Bladder Inspection Bladder Inspection: The bladder was inspected in its entirety with utilization retroflexion displaying: Tumor(s): no suspicious bladder lesions visualized Trabeculation: Mild Mucosal Erthema: NA Orifices: normal shape and position Urethra: normal Cystoscopy findings: no suspicious bladder lesions visualized [id number] DISPOSABLE SCOPE URO-G FLEXIBLE SCOPE Procedure code (CPT) selection complete Office Meds lidocaine HCl 2 % mucosal jelly in applicator Performing Provider: Erickson Dunn MD Performing Location[facility] Administered by: Beto Max LPN on 08/14/25 10:50 Dose Route Admin Location Dispensed Lot Number Expiration Date ND Wood Fuel Pelletizer 10 mL intra-urethral 20 mL ciprofloxacin HCl 500 mg tablet Performing Provider: Erickson Dunn MD Performing Location: [facility] U[facility] Administered by: Beto Max LPN on 08/14/25 10:50 Dose Route Admin Location Dispensed Lot Number Expiration Date NDC Wood Fuel Pelletizer 500 mg PO 1 tab phenazopyridine 200 mg tablet Performing Provider: Erickson Dunn MD Performing Location: [facility] Administered by: Beto Max LPN on 08/14/25 10:50 Dose Route Admin Location Dispensed Lot Number Expiration Date NDC Wood Fuel Pelletizer 200 mg PO 1 tab Results AMB Urinalysis, Automated UA Leukoctes 0 Dayday/uL Last Edit by Crystal Emiliano on 08/14/25 17:11 UA Nitrite Negative Last Edit by Crystal Cummings on 08/14/25 17:11 UA Urobilinogen 0.2 mg/dL Last Edit by Crystal Cummings on 08/14/25 17:11 UA Protein 0 mg/dL Last Edit by Crystal Cummings on 08/14/25 17:11 UA pH 6.0 Last Edit by Crystal Cummings on 08/14/25 17:11 UA Blood 0 Dago/uL Last Edit by Crystal Cummings on 08/14/25 17:11 UA Specific [place] 1.015 Last Edit by Crystal Cummings on 08/14/25 17:11 UA Ketone Negative Last Edit by Crystal Cummings on 08/14/25 17:11 UA Bilirubin 0 mg/dL Last Edit by Crystal Cummings on 08/14/25 17:11 UA Glucose 0 mg/dL Last Edit by Crystal Cummings on 08/14/25 17:11 Results Reviewed Results Reviewed: Laboratory Last Values Urine pH (Auto) 6.0 08/14/25 11:56 Specific [place] (Auto) 1.015 08/14/25 11:56 Urine Protein (Auto) 0 mg/dL 08/14/25 11:56 Glucose (UA)(Auto) 0 mg/dL 08/14/25 11:56 Urine Ketones (Auto) Negative 08/14/25 11:56 Urine Blood (Auto) 0 Dago/uL 08/14/25 11:56 Urine Nitrite (Auto) Negative 08/14/25 11:56 Urine Bilirubin (Auto) 0 mg/dL 08/14/25 11:56 Urine Urobilinogen (Auto) 0.2 mg/dL 08/14/25 11:56 Leukocyte Esterase (Auto) 0 Dayday/uL 08/14/25 11:56 Assessment & Plan Assessment & Plan (1) Inverted papilloma of bladder: Code(s): D41.4 - Neoplasm of uncertain behavior of bladder Category: Medical (2) Urinary frequency: Code(s): R35.0 - Frequency of micturition Category: Medical (3) Renal cyst: Code(s): N28.1 - Cyst of kidney, acquired Category: Medical Plan Plan 1. History Of Urothelial Papilloma - The patient underwent a surveillance office cystoscopy. The examination revealed mild bladder trabeculations but no evidence of recurrent or new bladder lesions. - The plan is to continue surveillance with a follow-up visit scheduled for next year, unless any new issues arise. 2. Benign Cyst Of Left Kidney - The 2.2 cm benign cyst in the left kidney, identified on a prior ultrasound, is considered non-concerning. No further action is required at this time. 3. Urinary Incontinence/Frequency - The patient reported minor, intermittent issues with urinary control. Will monitor. Avoid bladder dietary irritants Orders: Orders AMB Cystoscopy 08/14/25 N32.9 - Bladder disorder, unspecified, R30.0 - Dysuria, R31.29 - Other microscopic hematuria AMB Urinalysis Automated 08/14/25 Z13.9 - Encounter for screening, unspecified Urine Cytology 08/14/25 R31.9 - Hematuria, unspecified Patient Instructions: The patient had an opportunity to ask questions regarding treatment plan. The patient expressed understanding and agreement with the above treatment plan. The patient is aware they should contact our office by phone for worsening of their current condition or the appearance of new symptoms. Compliance is encouraged with any medications and followup testing that is ordered. It is a privilege to be allowed the opportunity to participate in the urologic care of your patient. If you have any questions or concerns regarding treatment for the above conditions please do not hesitate to contact me. The office telephone contact is [phone]. This note is constructed in part using voice recognition software. While every effort has been made to ensure accuracy shank boner errors may have been included. Yours sincerely, Erickson Dunn MD Scribe Plan - Not visible on output: Patient was informed and verbally consented to the use of an ambient scribe for clinic note documentation during this visit. Coding Level of Care Code Est Pt Level 3 (81374) Diagnoses Inverted papilloma of bladder D41.4 Urinary frequency R35.0 Renal cyst N28.1 CPT Codes Cystoscopy - CPT: 69722-[id number] ([id number])
--- OUTSIDE RECORDS SUMMARY | 2025-08-14 12:43 | XMS_ITS | Clinical Summary ---
Author Organization [facility] Address [address] [facility] [address] [place] [address] Phone Care Team Providers Care Box Closing Machine Operator Name Role Phone Rd Lowery MD Primary Care Provider +1- [phone] Allergies Active Allergy Reactions Criticality Noted Date [...] injection every 2 weeks Active Ca cit-D3-mag#11-zi ym-kbrh-epy-bor (CALTRATE 600+D) 600 mg calcium- 800 unit-50 mg Tab Take 1 tablet by mouth 2 (two) times a day. Active biotin-silicon adnl-C-rqtkmovb 5,000 mcg -10 mg-50 mg TbER Take [...] to have a CT of her chest [facility]. High-resolution images looking for upper lobe [...] Patient is on nasal steroid and saline. Hematite pot worsens her ear issues and so [...] Devices Not on file Insurance OUT OF [facility] PPO BLUE CROSS OUT OF STATE PPO BLUE CROSS OUT OF [place] [address] [place] [address] CROSS OUT OF STATE PPO BLUE CROSS OUT OF STATE PPO BLUE CROSS OUT OF STATE PPO BLUE [place]OSS OUT OF STATE PPO [place] OUT OF STATE PPO [facility] OUT OF STATE PPO Care Teams Box Closing Machine Operator Relationship Specialty Start Date End Date Rd Lowery MD [email or web address] PCP - General Internal Medicine 04/16/18 Additional Source Comments The information contained in this document represents components of the legal health record. It is not the complete legal health record.[facility]
--- OUTSIDE RECORDS SUMMARY | 2025-08-14 12:43 | XMS_ITS | Encounter Summary ---
Author Organization [facility] Address [address] [facility] [address] [place] [address] Phone Care Team Providers Care Supervisor Production Managing Name Role Phone Rd Lowery MD Primary Care Provider +1- [phone] Encounter Details Date Type Department Care Team (Late st Contact Info) Description 01/26/2020 Ancillary Orders [facility],Outside Imaging [address] [place] [address] System, Provider Not In, [place] [address] Social History Tobacco Use Types Packs/Day Years [...] on filedocumented in this encounter Care Teams Supervisor Production Managing Relationship Specialty Start Date End Date Rd Lowery MD [email or web address] PCP - General Internal Medicine 04/16/18 documented as of this encounter Additional Source Comments The information contained in this document represents components of the legal health record. It is not the complete legal health record.[facility]
--- OUTSIDE RECORDS SUMMARY | 2025-08-14 12:43 | XMS_ITS | Encounter Summary ---
Author Organization [facility] Address [address] [place] [address] Phone Care Team Providers Care Supervisor Picking Crew Name Role Phone Rd Lowery MD Primary Care Provider +1- [phone] Encounter Details Date Type Department Care Team (Late st Contact Info) Description 07/22/2018 Procedure Pass [facility] Imaging [address] [place] [address] Social History Tobacco Use Types Packs/Day Years [...] filedocumented in this encounter Care Teams Supervisor Picking Crew Relationship Specialty Start Date End Date Rd Lowery MD [email or web address] PCP - General Internal Medicine 04/16/18 documented as of this encounter Additional Source Comments The information contained in this document represents components of the legal health record. It is not the complete legal health record.[facility]
== END 2025-08-14 11:19 | disposition home or self-care (01) ==
LOC: HO.HUSH 10:17
PROVIDERS: PCP Physician Assistant; Visit Provider Urology
DX: N32.9 Bladder disorder, unspecified (principal); R30.0 Dysuria; R31.29 Other microscopic hematuria; Z13.9 Encounter for screening, unspecified
CPT/HCPCS: 52000

== ENCOUNTER 2025-08-15 09:29 | Outpatient (AMB) | payer MEDICARE, SELFPAY ==
[2025-08-15 10:13] VITALS: BP 130/70; PULSE 47; TEMP 36.2; O2SAT 98; BMI 33.3
--- NOTE | 2025-08-15 10:13 | A.OFFPC_ITS ---
Vital Signs 08/15/25 10:13 Height 5 ft 1.5 in Weight 179 lb 6 oz BMI 33.3 BP 130/70 Blood Pressure Location Lt brachial Position Sitting Pulse 47 L Pulse Source Pulse Oximeter Temp 97.1 F Temp Source Temporal Artery Scan Pulse Oximetry (%) 98 Oxygen Delivery Method Room Air Intake Visit Reasons: Annual Exam Intake Note: Patient is here today for a physical. Large Sheetfed Press Operator Required: No Bead Cutter: Not Required per policy Accompanied by: Self / Same As Patient Allergies oxycodone (From Percocet) Allergy (Mild, Verified 08/15/25 10:25) NAUSEA,HIVES,THROWING UP/ codeine (Codeine) Adverse Reaction (Mild, Verified 08/15/25 10:25) Constipation dairy protein Allergy (Severe, Uncoded 08/15/25 10:25) Diarrhea dairy,eggs, wheat,nuts,mold Allergy (Severe, Uncoded 08/15/25 10:25) Diarrhea Medication List - Last Reconciled 08/15/25 by Louis Quijano PA-C albuterol sulfate 90 mcg/actuation (ProAir HFA) 2 inhalations inhalation QID PRN azelastine 1 spray intranasal BID 90 days baclofen 10 mg PO BID PRN calcium carbonate-vitamin D3 600 mg-10 mcg (400 unit) (Calcium with Vitamin D) 1 tab PO DAILY celecoxib 200 mg PO DAILY 90 days cyanocobalamin (vitamin B-12) 1,000 mcg IM .twice a month gabapentin 200 mg (2 x 100 mg) PO BEDTIME lansoprazole 30 mg PO DAILY 90 days montelukast 10 mg PO DAILY 90 days syringe with needle (Easy Touch) Use to inject twice a month Tobacco use date assessed: 08/15/25 Fall risk assessment: No Falls in past year Last assessed Fall Risk: 08/15/25 Dental Screening Dental Screen Date: 02/13/25 HPI Annual Exam HPI Details Patient is 70-year-old female here today for an annual physical Patient's past medical history significant for AFib, osteoporosis, history of foot surgery, hyperlipidemia, GERD, 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 Lumbar radiculopathy: The patient reports chronic back pain with numbness and weakness, primarily affecting the left leg, suspected to be lumbar radiculopathy, impacting her activities and causing sleep disturbances. She has gotten an MRI that did show-- >Grade 1 anterolisthesis on a degenerative basis resulting in central spinal canal and bilateral neuroforamina stenosis encroaching the neural elements. Spondylosis at multiple levels more pronounced at L5-S1 encroaching the exiting nerve roots. She has later followed up with a music specialist whom recommended perhaps surgery with hardware placement though patient will like to hold off on contin ued conservative physical therapy. She does see pain management and has been on gabapentin which does take the edge off of her pain. .. Class 1 Obesity: Weight loss has been difficult for patient, GLP 1 not been covered through insurance for patient. She continues to be as physically active as possible on does follow a fairly good diet .. AFIB/ SVT: Patient is followed by post office clerk. (DR Edmond) Continues on rate control with metoprolol. Has underwent a cardioversion which seems to have been successful. . She currently is not on any anticoagulation at this time. .. Hyperlipidemia: Continues to manage her cholesterol with lifestyle and dietary modifications. Lipid panel showing borderline high total cholesterol and LDL., she reports no change in her diet though since being taken off of flecainide her cholesterol has improved .. Osteoporosis: Currently taking Prolia on a every 6 months basis through Endocrine. She has establish care with endocrinology and has been started on vitamin-D and calcium supplementation. Mammogram: Done at [facility] in December 2024, BI-RADS 2- bone density continues to show osteoporosis Vaccines: Up-to-date with COVID vaccine, tetanus vaccine, pneumonia vaccine, Colon cancer screening: done in 2021- normal - repeat 10 years [facility] Medical History On beta kendal at home Atrial fibrillation Vitamin B 12 deficiency Multinodular thyroid Osteoporosis Vitamin D deficiency Lymphadenopathy of head and neck Neck pain Normal colonoscopy History of mammogram Asthma Hyperlipidemia GERD (gastroesophageal reflux disease) Arrhythmia Surgical History History of surgery History of lumpectomy of both breasts Hx of cholecystectomy History of esophagogastroduodenoscopy (EGD) H/O colonoscopy History of thyroidectomy S/P foot surgery, right History of rotator cuff surgery Carpal tunnel syndrome H/O arthroscopy of right knee History of breast biopsy History of hysterectomy Family History Father CAD (coronary artery disease) CVD (cardiovascular disease) Mother No problems noted. Brother Cancer Sister Liver cancer CVD (cardiovascular disease) Breast cancer Other Mental health disorder Social History Housing: House Alcohol intake: current Alcohol intake frequency: holidays/special occasions only Patient Tobacco Use Status: Former Tobacco user Tobacco use type: Cigarette Cigarettes Per Day: 5 Years Smoked: 35 e-Cigarette/Vaping Use: Never Used Second Hand Smoke Exposure: Yes service: No Current occupational status: retired Cognitive needs: No Hearing needs: No Vision needs: Yes (Glasses) Questionnaire Thrive Questionnaire Date Thrive assessed: 02/08/25 I am a: Patient What is your living situation today?: I have a steady place to live Within the past 12 months, did the food you bought not last and you didn't have the money to get more?: Never true Within the past 12 months, did you worry whether your food would run out before you got money to buy more?: Never true Do you have trouble paying for medicines?: No Do you have trouble getting transportation to medical appointments?: No Do you have trouble paying your heating and electricity bill?: No Do you have trouble taking care of your child, family member or friend?: No Do you have trouble with day-to-day activities such as bathing, preparing meals, shopping, managing finances, etc.?: No Are you currently unemployed and looking for a job?: No Are you interested in more education?: Yes Please select the resources that you would like help with: None Currently or been in a relationship where the following occur: No concerns reported THRIVE Score: 0 ELIUD-7 AMB Questionnaire ELIUD-7 Date ELIUD - 7 assessed: 02/13/25 Source: Developed by Drs. Javier Bernal, Neisha Mejia, Gaurav Gardner and colleagues, with an educational samantha from [employer] work. Physical exam (Primary Care) Vital Signs: Last Vital Signs Temp 97.1 F 08/15/25 10:13 Pulse 47 L 08/15/25 10:13 BP 130/70 08/15/25 10:13 Pulse Ox 98 08/15/25 10:13 Oxygen Delivery Method Room Air 08/15/25 10:13 BMI result Body Mass Index 33.3 BMI Assessment/Plan discussion: High BMI High, discussed plan: lifestyle, weight reduction, dietary and physical activity Tobacco/Smoking Status: Tobacco use Status Tobacco use date assessed 08/15/25 08/15/25 10:17 Patient Tobacco Use Status Former Tobacco user 08/15/25 10:17 Tobacco use type Cigarette 08/15/25 10:17 e-Cigarette/Vaping Use Never Used 08/15/25 10:17 Thrive Assessment: Date of Thrive Assessment Date Thrive assessed 02/08/25 08/15/25 10:17 Currently or been in a relationship where the following occur: No concerns reported Coding Level of Care Code Est Pt Prev Care >65y(82255) Diagnoses Annual physical exam Z00.00 Lumbar radiculitis M54.16 Paroxysmal atrial fibrillation I48.0 Atrial fibrillation type: paroxysmal Age-related osteoporosis without current pathological fracture M81.0 Osteoporosis type: age-related Presence of current pathological fracture: without current pathological fracture Multinodular thyroid E04.2 Mixed hyperlipidemia E78.2 Hyperlipidemia type: mixed hyperlipidemia Class 1 obesity E66.811 Assessment & Plan Assessment & Plan (1) Annual physical exam: Code(s): Z00.00 - Encounter for general adult medical examination without abnormal findings Category: Medical Plan: As per HPI (2) Lumbar radiculitis: Code(s): M54.16 - Radiculopathy, lumbar region Category: Medical Plan: For management of lumbar degenerative disc disease, the patient will continue with physical therapy, which has been beneficial. A referral for physical therapy in [place] will be provided to ensure continuity of care, with a focus on lumbar disc disease, balance, and core strengthening. The patient will continue gabapentin 200 mg at night as needed for leg and foot numbness and may use baclofen intermittently. Any necessary refills can be requested through the patient portal. (3) Atrial fibrillation: Code(s): I48.91 - Unspecified atrial fibrillation Category: Medical Qualifiers: Atrial fibrillation type: paroxysmal Qualified Code(s): I48.0 - Paroxysmal atrial fibrillation Plan: Patient continues to follow cardiology. She rarely has any heart palpitations. She was previously on flecainide and anticoagulation though seems to have side effects. (4) Osteoporosis: Code(s): M81.0 - Age-related osteoporosis without current pathological fracture Category: Medical Qualifiers: Osteoporosis type: age-related Presence of current pathological fracture: without current pathological fracture Qualified Code(s): M81.0 - Age- related osteoporosis without current pathological fracture Plan: Patient continues to follow Endocrinology in his on calcium and vitamin-D supplementation. (5) Multinodular thyroid: Comment: Status post partial thyroidectomy 2019 Code(s): E04.2 - Nontoxic multinodular goiter Category: Medical Plan: Patient followed by endocrinology. Most recent TSH stable (6) Hyperlipidemia: Comment: intolerant to Simvastatin, body aches-- Code(s): E78.5 - Hyperlipidemia, unspecified Category: Medical Qualifiers: Hyperlipidemia type: mixed hyperlipidemia Qualified Code(s): E78.2 - Mixed hyperlipidemia Plan: Most recent lipid panel showing slightly elevated total cholesterol and LDL. She believes that her cholesterol elevation was due to side effects of medication. She will continue working on lifestyle and dietary modifications. Goal LDL is to remain below 130 (7) Class 1 obesity: Code(s): E66.811 - Obesity, class 1 Category: Medical Plan: Pharmacological support for weight management was discussed, unfortunately insurance has not covered GLP 1. Continued lifestyle modifications will be essential. Orders: Orders Comprehensive [place]. Panel Fast Today E78.2 - Mixed hyperlipidemia Complete Blood Count Auto Diff Today I48.0 - Paroxysmal atrial fibrillation Lipid Panel Today E78.2 - Mixed hyperlipidemia PT Evaluation and Treatment Today M51.9 - Unspecified thoracic, thoracolumbar and lumbosacral intervertebral disc disorder, M54.16 - Radiculopathy, lumbar region Vitamin B12 and Folate Today E53.8 - Deficiency of other specified B group vitamins
--- OUTSIDE RECORDS SUMMARY | 2025-08-15 10:14 | XMS_ITS | Encounter Summary ---
Author Organization [facility] Address [address] [place] [address] Phone Care Team Providers Care Returns Processor Name Role Phone Rd Lowery MD Primary Care Provider +1- [phone] Encounter Details Date Type Department Care Team (Late st Contact Info) Description 07/22/2018 Procedure Pass [facility] Imaging [address] [place] [address] Social History Tobacco Use Types Packs/Day Years [...] on filedocumented in this encounter Care Teams Returns Processor Relationship Specialty Start Date End Date Rd Lowery MD [email or web address] PCP - General Internal Medicine 04/16/18 documented as of this encounter Additional Source Comments The information contained in this document represents components of the legal health record. It is not the complete legal health record.[facility]
--- OUTSIDE RECORDS SUMMARY | 2025-08-15 10:15 | XMS_ITS | Encounter Summary ---
Author Organization [facility] Address [address] [facility] [address] [place] [address] Phone Care Team Providers Care Crossing Supervisor Name Role Phone Rd Lowery MD Primary Care Provider +1- [phone] Encounter Details Date Type Department Care Team (Late st Contact Info) Description 01/26/2020 Ancillary Orders [facility],Outside Imaging [address] [place] [address] System, Provider Not In, [place] [address] Social History Tobacco Use Types Packs/Day Years [...] on filedocumented in this encounter Care Teams Crossing Supervisor Relationship Specialty Start Date End Date Rd Lowery MD [email or web address] PCP - General Internal Medicine 04/16/18 documented as of this encounter Additional Source Comments The information contained in this document represents components of the legal health record. It is not the complete legal health record.[facility]
--- OUTSIDE RECORDS SUMMARY | 2025-08-15 10:15 | XMS_ITS | Clinical Summary ---
Author Organization [facility] Address [address] [place] [phone] Phone Care Team Providers Care Floor Coverer Name Role Phone Louis Quijano Primary Care [...] probability of hip fracture of 3.6%. Code 25584 -------- FINAL REPORT -------- Dictated By: Bam Sanchez Dictated Date: 02/03/2025 07:50 ET Assigned Physician: Bam Sanchez Reviewed and Electronically Signed By: Bam Sanchez Signed Date: 02/03/2025 07:51 ET Workstation ID: [id number] Transcribed By: Self Edit Transcribed Date: 02/03/2025 [...] density of the femurs bilaterally is 0.806 gm/xz9oflsr is 80% of that of young normals [...] probability of hip fracture of 3.6%. Code 19997 -------- FINAL REPORT -------- Dictated By: Bam Sanchez Dictated Date: 02/03/2025 07:50 ET Assigned Physician: Bam Sanchez Reviewed and Electronically Signed By: Bam Sanchez Signed Date: 02/03/2025 07:51 ET Workstation ID: [id number] Transcribed By: Self Edit Transcribed Date: 02/03/2025 [...] year. Mammo Location: [facility], [address] [place] [address], [id number], . -------- FINAL REPORT -------- Dictated By: Demetra Meadows Dictated Date: 01/12/2025 15:21 ET Assigned Physician: Demetra Meadows Reviewed and Electronically Signed By: Demetra Meadows Signed Date: 01/12/2025 15:26 ET Workstation ID: [id number] Transcribed By: Self Edit Transcribed Date: 01/12/2025 [...] been no significant change from prior exam(s). monitoring manager in the left medial breast. BREAST DENSITY: [...] has been no significantchange from prior exam(s). monitoring manager in the left medialbreast. BREAST DENSITY: B - There are scattered areas of fibroglandular density. IMPRESSION: No evidence of breast malignancy. BI-RADS CATEGORY: 1 - NEGATIVE RECOMMENDATION: Screening bilateral mammogram is recommended in 1 year. Mammo Location: [facility], [address] [place] [address], [id number], . -------- FINAL REPORT -------- Dictated By: Demetra Meadows Dictated Date: 01/12/2025 15:21 ET Assigned Physician: Demetra Meadows Reviewed and Electronically Signed By: Demetra Meadows Signed Date: 01/12/2025 15:26 ET Workstation ID: [id number] Transcribed By: Self Edit Transcribed Date: 01/12/2025 15:21 ET us Self Referral Sppl IMG BI PROCEDURES Final Resul t from Last 3 Months or Most Recently Relevant to Health Maintenance [place] [address] [place] [address] MEDICARE Care Teams Floor Coverer Relationship Specialty Start Date End Date Louis Quijano PA PCP - General Physician Turner Splitter Machine Operator 01/12/25
--- OUTSIDE RECORDS SUMMARY | 2025-08-15 10:15 | XMS_ITS | Clinical Summary ---
Author Organization [facility] Address [address] [facility] [address] [place] [address] Phone Care Team Providers Care Inspector Casing Name Role Phone Rd Lowery MD Primary Care Provider +1- [phone] Allergies Active Allergy Reactions Criticality Noted Date [...] injection every 2 weeks Active Ca cit-D3-mag#11-zi sw-ewau-tur-bor (CALTRATE 600+D) 600 mg calcium- 800 unit-50 mg Tab Take 1 tablet by mouth 2 (two) times a day. Active biotin-silicon xubm-B-vxegxbic 5,000 mcg -10 mg-50 mg TbER Take [...] to have a CT of her chest [facility]. High-resolution images looking for upper lobe [...] Patient is on nasal steroid and saline. [place] pot worsens her ear issues and so [...] on file Insurance OUT OF [facility] PPO BLUE CROSS OUT OF STATE PPO BLUE CROSS OUT OF STATE [place] [place] [address] CROSS OUT OF STATE PPO BLUE CROSS OUT OF STATE PPO BLUE CROSS OUT OF STATE PPO BLUE CROSS OUT OF STATE PPO [place] OUT OF STATE PPO [facility] OUT OF STATE PPO Care Teams Inspector Casing Relationship Specialty Start Date End Date Rd Lowery MD [email or web address] PCP - General Internal Medicine 04/16/18 Additional Source Comments The information contained in this document represents components of the legal health record. It is not the complete legal health record.[facility]
== END 2025-08-15 10:53 | disposition home or self-care (01) ==
LOC: HO.HMCH 09:30
PROVIDERS: PCP Physician Assistant; Visit Provider Physician Assistant
DX: Z00.00 Encounter for general adult medical examination without abnormal findings (principal); E66.811 Obesity, class 1; I48.0 Paroxysmal atrial fibrillation; Z68.33 Body mass index [BMI] 33.0-33.9, adult; M54.16 Radiculopathy, lumbar region; M81.0 Age-related osteoporosis without current pathological fracture; E04.2 Nontoxic multinodular goiter; E78.2 Mixed hyperlipidemia

== ENCOUNTER → 2025-08-15 09:29 | Outpatient (BNVA) | payer MEDICARE, SELFPAY | PROVIDERS: PCP Physician Assistant; Visit Provider Physician Assistant | DX: Z00.00 Encounter for general adult medical examination without abnormal findings (principal); M54.16 Radiculopathy, lumbar region; I48.0 Paroxysmal atrial fibrillation; M81.0 Age-related osteoporosis without current pathological fracture; E04.2 Nontoxic multinodular goiter; E78.2 Mixed hyperlipidemia; E66.811 Obesity, class 1 | CPT/HCPCS: 99397 ==